=== PATIENT | female | born 1930 | race Caucasian/White ===

== ENCOUNTER 2016-11-25 13:16 | Emergency (ER) | payer OTHER ==
[~2016-11-25] VITALS: Ht 152.4 cm; Wt 58.0 kg
[~2016-11-25 13:16] MED LIST: ACET-1138 PO; AMIO200T4 PO; CITA10TA4 PO; CLOB-77 TOP; CRS/10 PO; IMD/2 PO; LACT12LO28 TOP; LEVO-14 PO; LEVO50TA PO; MECL1TAB40 PO; METO50TA17 PO; METR0.754 TOP; NTRGSL/4 UT; ONDA8TAB6 PO; ROPI0.5T15 PO; ROPI1TAB PO; RXC5 PO; SNK PO; TRAM-10 PO; WARF3TAB PO
[2016-11-25 13:24] VITALS: TEMP 36.8; Ht 152.4 cm; Wt 58.0 kg
[2016-11-25] MEDS ORDERED: DXY50 PO (14:12)
[2016-11-25] MEDS ORDERED: WARF4TAB44 PO (14:12)
[2016-11-25] MEDS ORDERED: WARF1TAB6 PO (14:12)
[2016-11-25] MEDS ORDERED: ANT25 PO (14:12)
[2016-11-25] MEDS ORDERED: ONDA-63 PO (14:13)
[2016-11-25] MEDS ORDERED: METO50TA16 PO (14:13)
--- NOTE | 2016-11-25 14:53 | DIAGNOSTIC IMAGING REPORT ---
HEAD WITHOUT CONTRAST (CT) CLINICAL HISTORY: 86 years-old Female with eval for trauma. Acute head injury. Initial exam. TECHNIQUE: Multiple axial CT images of the head were obtained without contrast. A dose lowering technique was utilized adhering to the principles of ALARA. CT DOSE: 776.86 mGycm COMPARISON: CT head 05/29/2013. FINDINGS: No acute intracranial hemorrhage, midline shift, mass, large territorial ischemia or abnormal extra-axial collection. Moderate atrophy with ex vacuo ventriculomegaly. Confluent areas of low-attenuation are seen within the periventricular, subcortical and deep white matter of the cerebral hemispheres bilaterally compatible with chronic microvascular ischemic changes. Findings appear similar to slightly progressed from prior study. The calvarium is intact. The paranasal sinuses, mastoid air cells, and middle ear cavities are clear. IMPRESSION: 1. No acute intracranial abnormality. 2. Atrophy with chronic microvascular ischemic changes. The above report was generated using voice recognition software. It may contain grammatical, syntax or spelling errors. Electronically signed by: Rodger Duke M.D. 11/25/2016 2:51 PM Dictated Date/Time: 11/25/2016 2:47 PM
[2016-11-25 17:05] VITALS: BP 113/60; PULSE 69; O2SAT 96
--- NOTE | 2016-11-25 17:47 | EMERGENCY ROOM VISIT NOTE ---
History Report prepared by Dean: Amarilis Thomas Under the Supervision of: Dr. John Don M.D. First contact with patient: 14:07 Chief Complaint: SYNCOPE Stated Complaint: SYNCOPE Nursing Triage Summary: pt to the ED via EMS from clinic in [place] after having blood drawn she had 2 syncopal episodes. pt stated one time she fell out of the chair and thinks she hit her head she has passed out during blood draws several times and she stated that they were having a hard time getting blood and were digging around. pt has c/o LUDWIG pt takes coumadin History of Present Illness The patient is a 86 year old female who presents to the Emergency Room with complaints of multiple episodes of syncope occurring [employer]. The patient went in for blood work today. She states that she always passes out when she has blood work drawn. Today they had a difficult time drawing blood. After they were finished, the patient laid down for a while to make sure she was OK. She got up and took a few steps with her cane and passed out. Her daughter caught her and sat her down in a chair. The patient then passed out in the chair and hit the back of her head on the wall behind the chair. She was transferred to a wheelchair where she passed out again. She was feeling fine before she went to her appointment this morning and ate breakfast normally. The patient was brought to the ED by ambulance and states that she was hypertensive en route which typically happens to her when she passes out. She is on Coumadin. 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 A total of 10 systems reviewed and were otherwise negative. Past Medical & Surgical Medical Problems: (1) CKD (chronic kidney disease), stage III (2) Dyslipidemia (3) HTN (hypertension) (4) Pacemaker (5) RLS (restless legs syndrome) (6) Rosacea (7) SVT (supraventricular tachycardia) (8) Tachy-enid syndrome Surgical Problems: (1) History of carpal tunnel surgery (2) History of cataract surgery (3) History of hysterectomy (4) Post-operative state Old medical records were reviewed. Nurse's notes were reviewed and I agree with. Family History Diabetes mellitus Heart disease Hypertension Social History Smoking Status: Never Smoker Alcohol Use: none Housing Status: lives with family Occupation Status: retired Current/Historical Medications Scheduled Citalopram Hydrobromide (Citalopram Hydrobromide), 1 TAB PO HS Doxycycline Hyclate (Doxycycline Hyclate), 50 MG PO DAILY Levothyroxine Sodium (Synthroid), 1 TAB PO DAILY Meclizine HCl (Meclizine HCl), 12.5 MG PO DIRECTED Metoprolol Tartrate (Lopressor) (Lopressor), 25 MG PO BID Nitroglycerin (Nitrostat), 0.4 MG UT PRN Ropinirole (Requip), 0.5 MG PO QAM Ropinirole (Requip), 1 MG PO BID Rosuvastatin Calcium (Crestor), 1 TAB PO DAILY Warfarin Sod (Jantoven), 1 MG PO 4XWK Warfarin Sodium (Warfarin Sodium), 2 MG PO 3XWK Scheduled PRN Clobetasol Propionate (Temovate), 1 APPLN TOP BID PRN for PRN Lactic Acid (Ammonium Lactate) (Ammonium Lactate), 1 APPLN TOP PRN PRN for PRN Levocetirizine Dihydrochloride (Levocetirizine Dihydrochl), 1 TAB PO DAILY PRN for ALLERGIES Loperamide Hcl (Imodium), 2 MG PO UD PRN for PRN Metronidazole (Topical) (Metrocream), 1 APPLN TOP DAILY PRN for PRN Ondansetron (Ondansetron HCl), 8 MG PO Q8H PRN for Nausea Allergies Coded Allergies: Adhesives (Verified Allergy, Unknown, ADHESIVE TAPE, 12/31/15) Conjugated Estrogens (Verified Allergy, Unknown, SEVERE RASH, PAINFUL FROM VAGINAL CREAM, 12/31/15) Sulfa Antibiotics (Verified Allergy, Unknown, HIVES, RASH, 12/31/15) Tetanus Toxoid (Verified Allergy, Unknown, UNKNOWN, 12/31/15) Physical Exam Vital Signs Date Time Temp Pulse Resp B/P (MAP) Pulse Ox O2 Delivery O2 Flow Rate FiO2 11/25/16 17:05 69 18 113/60 96 11/25/16 15:13 63 18 130/73 97 Room Air 11/25/16 13:35 67 11/25/16 13:35 66 160/110 11/25/16 13:24 36.8 75 20 197/124 99 Room Air Physical Exam General: Well developed well nourished non ill appearing older female in no acute distress, breathing comfortably on room air. Normal speech HEENT: Normal cephalic, minimally tender posterior scalp, no external signs of trauma. Pupils are equal round and reactive to light. Extraocular movements are intact. Oropharynx is pink with moist mucous membranes. No swelling of the mouth lips or tongue. Neck: Supple with a midline trachea. No meningeal signs or stiffness, no JVD or bruits. No Stridor. Chest: Clear to auscultation bilaterally. No wheezes or rhonchi. No increased work of breathing. Heart: regular rate and rhythm. Abdomen: Soft nontender, nondistended without rebound guarding or rigidity. Extremities: No cyanosis clubbing or edema. No calf tenderness or assymetry Spine/Back. Non tender to palpation. No CVA tenderness Skin: Good turgor without rashes. Neurologic exam: Cranial nerves two through 12 are intact. Motor and sensation are intact and symmetrical throughout. Medical Decision & Procedures ER Provider Diagnostic Interpretation: Radiology results as stated below per my review and radiologist interpretation: HEAD WITHOUT CONTRAST (CT) CLINICAL HISTORY: 86 years-old Female with eval for trauma. Acute head injury. Initial exam. TECHNIQUE: Multiple axial CT images of the head were obtained without contrast. A dose lowering technique was utilized adhering to the principles of ALARA. CT DOSE: 776.86 mGycm COMPARISON: CT head 05/29/2013. FINDINGS: No acute intracranial hemorrhage, midline shift, mass, large territorial ischemia or abnormal extra-axial collection. Moderate atrophy with ex vacuo ventriculomegaly. Confluent areas of low-attenuation are seen within the periventricular, subcortical and deep white matter of the cerebral hemispheres bilaterally compatible with chronic microvascular ischemic changes. Findings appear similar to slightly progressed from prior study. The calvarium is intact. The paranasal sinuses, mastoid air cells, and middle ear cavities are clear. IMPRESSION: 1. No acute intracranial abnormality. 2. Atrophy with chronic microvascular ischemic changes. The above report was generated using voice recognition software. It may contain grammatical, syntax or spelling errors. Electronically signed by: Rodger Duke M.D. 11/25/2016 2:51 PM Dictated Date/Time: 11/25/2016 2:47 PM ECG Indication: syncope Rate (beats per minute): 62 Rhythm: other (atrial paced) Findings: no acute ischemic change, no ectopy, other (LVH) Comparison ECG Date: 01/10/16 Change: no significant change ED Course 1407: Past medical records reviewed. The patient was evaluated in room A9B, and a complete history and physical examination were performed. 1654: I reassessed the patient at this time. She is feeling better and resting comfortably. I discussed the results and treatment plan with the patient and her daughter. I answered all pertaining questions that they had. They expressed understanding and verbalized agreement. The patient will be discharged home. Medical Decision Differential diagnoses includes vasovagal syncope, arrhythmia, anemia, intracranial hemorrhage, skull fracture. She comes in as described above she had syncopal episodes after getting her blood work drawn. She has a long-standing history of this. She passed out fine felt better when they actually laid her down on the ground. She may have hit her head briefly. She has minimal headache. She is on Coumadin. I did do a CAT scan of her head was unremarkable. EKG shows a normal paced rhythm without ischemic changes we did attempt to interrogate her pacer here but were unable to get the information. The patient has no symptoms that should to suggest this to pacemaker malfunction or significant arrhythmia. Her blood pressure initially was hypertensive and prior to discharge her was normotensive at 130/73. Given her severe needle phobia and the fact that she passes out with blood work. I do not feel the need to repeat this. I attempted to get the blood work from [facility] (now [facility]) however it's not back today. the patient remained stable and feels fine. She able ambulate without any difficulties. I think this was a vasovagal episode. I will have her follow-up with her doctor tomorrow and get her blood work results as well. She return ER if : worseningof symptoms, fever or chills, chest pain, shortness of breath, any new problems or concerns. She is happy with plan discharged to home. Medication Reconcilliation Current Medication List: was personally reviewed by me Blood Pressure Screening Patient's blood pressure: Normal blood pressure Impression Primary Impression: Vasovagal syncope Additional Impression: Closed head injury Scribe Attestation The scribe's documentation has been prepared under my direction and personally reviewed by me in its entirety. I confirm that the note above accurately reflects all work, treatment, procedures, and medical decision making performed by me. Departure Information Dispostion Home / Self-Care Referrals Roly Vogel M.D. (PCP) Forms HOME CARE DOCUMENTATION FORM, IMPORTANT VISIT INFORMATION Patient Instructions My [facility] Additional Instructions Rest Drink plenty of fluids Return if: worsening of symptoms, fever, chest pain, any new problems or concerns Follow-up with your doctor tommorrow for recheck and lab results Problem Qualifiers Additional Impression: Closed head injury Encounter type: initial encounter Qualified Codes: S09.90XA - Unspecified injury of head, initial encounter
== END 2016-11-25 17:07 | disposition home or self-care (01) ==
LOC: EDBD 13:16 → C.EDA 13:17
DX: R55 Syncope and collapse (principal); S09.90XA Unspecified injury of head, initial encounter; W07.XXXA Fall from chair, initial encounter; Y92.89 Other specified places as the place of occurrence of the external cause; N18.3 Chronic kidney disease, stage 3 (moderate); E78.5 Hyperlipidemia, unspecified; I12.9 Hypertensive chronic kidney disease with stage 1 through stage 4 chronic kidney disease, or unspecified chronic kidney disease; Z95.0 Presence of cardiac pacemaker; I47.1 Supraventricular tachycardia; I49.5 Sick sinus syndrome; Z83.3 Family history of diabetes mellitus; Z82.49 Family history of ischemic heart disease and other diseases of the circulatory system; Z79.01 Long term (current) use of anticoagulants; Z79.899 Other long term (current) drug therapy

== ENCOUNTER 2017-03-27 18:46 | Inpatient (IN) | payer OTHER ==
[~2017-03-27] VITALS: Ht 142.2 cm; Wt 56.0 kg
[~2017-03-27 18:46] MED LIST changes: -ACET-1138 PO; -AMIO200T4 PO; +ANT25 PO; +DXY50 PO; -MECL1TAB40 PO; +METO50TA16 PO; -METO50TA17 PO; +ONDA-63 PO; -ONDA8TAB6 PO; -RXC5 PO; -SNK PO; -TRAM-10 PO; +WARF1TAB6 PO; -WARF3TAB PO; +WARF4TAB44 PO
[2017-03-27 19:28] LABS: BASO % 0.6 %; BASO ABS # 0.04 K/uL (0-0.2); EOS % 2.8 %; EOS ABS # 0.19 K/uL (0-0.5); HEMATOCRIT 36.5 % (37-47); HEMOGLOBIN 11.9 g/dL (12.0-16.0); IG# 0.02 K/uL (0.00-0.02); LYMPH ABS # 1.86 K/uL (1.2-3.4); MEAN CELL VOLUME 89.7 fL (80-100); MEAN CORPUSCULAR HEMOGLOBIN 29.2 pg (25-34); MEAN CORPUSCULAR HGB CONC 32.6 g/dl (32-36); MEAN PLATELET VOLUME 11.3 fL (7.4-10.4); MONO % 8.6 %; MONO ABS # 0.59 K/uL (0.11-0.59); NEUT % 60.7 %; NEUT ABS # 4.18 K/uL (1.4-6.5); PLATELET COUNT 219 K/uL (130-400); RED CELL DISTRIBUTION WIDTH CV 14.7 % (11.5-14.5); RED CELL DISTRIBUTION WIDTH SD 48.1 fL (36.4-46.3); WHITE BLOOD COUNT 6.88 K/uL (4.8-10.8)
[2017-03-27 19:37] LABS: INR 1.6 (0.9-1.1); PTT PATIENT 29.6 SECONDS (21.0-31.0)
--- NOTE | 2017-03-27 19:44 | DIAGNOSTIC IMAGING REPORT ---
CHEST ONE VIEW PORTABLE HISTORY: Syncope. Evaluate for pneumonia. COMPARISON: Chest 12/10/2015. FINDINGS: The cardiac silhouette is mildly enlarged. The lungs are clear. No pleural effusions. No pneumothorax. Left-sided dual-chamber pacemaker. IMPRESSION: Mild cardiomegaly. Electronically signed by: Benson Self M.D. 03/27/2017 7:42 PM Dictated Date/Time: 03/27/2017 7:41 PM
[2017-03-27 19:46] LABS: ALBUMIN 3.6 gm/dl (3.4-5.0); ALT/SGPT 27 U/L (12-78); AST/SGOT 28 U/L (15-37); BLOOD UREA NITROGEN 22 mg/dl (7-18); CALCIUM 8.7 mg/dl (8.5-10.1); CARBON DIOXIDE 24 mmol/L (21-32); CREATININE 1.27 mg/dl (0.60-1.20); GLUCOSE 133 mg/dl (70-99); POTASSIUM 3.9 mmol/L (3.5-5.1); SODIUM 136 mmol/L (136-145)
[2017-03-27 19:51] LABS: ALKALINE PHOSPHATASE 109 U/L (45-117); TOTAL PROTEIN 7.3 gm/dl (6.4-8.2)
[2017-03-27] MEDS ORDERED: AMMONIUM LACTATE 12% LOTION 225 GM BTL EXT PRN (20:45)
[2017-03-27] MEDS ORDERED: ONDANSETRON INJ 2 MG/ML 2 ML VIAL IV PRN (20:45)
[2017-03-27] MEDS ORDERED: NITROGLYCERIN 0.4 MG SL PER TAB CHARGE UT SCH (20:45)
[2017-03-27] MEDS ORDERED: MECLIZINE HCL 12.5 MG TAB PO PRN (20:45)
[2017-03-27] MEDS ORDERED: ROPINIROLE HCL 1 MG TAB PO SCH (21:00)
[2017-03-27] MEDS ORDERED: ACET-1693 PO (21:09)
[2017-03-27 21:33] VITALS: BP 165/84; PULSE 67; TEMP 37.3; O2SAT 98; Ht 142.2 cm; Wt 56.0 kg
--- NOTE | 2017-03-27 21:35 | DIAGNOSTIC IMAGING REPORT ---
HEAD CT NONCONTRAST CT DOSE: 655.73 mGy.cm HISTORY: Syncope. TECHNIQUE: Multiaxial CT images of the head were performed without the use of intravenous contrast. Automated exposure control was utilized for this study. A dose lowering technique was utilized adhering to the principles of ALARA. Comparison: Head CT 11/18/1716. Findings: The paranasal sinuses and mastoid air cells are clear. The calvarium and skull base are intact. There is no mass, hematoma, midline shift, acute infarct. White matter hypodensity is nonspecific but suggestive of microvascular ischemic change. The ventricles and sulci demonstrate mild age-related involutional changes. Impression: No significant change compared to the prior study. No acute intracranial abnormality. Electronically signed by: Benson Self M.D. 03/27/2017 9:34 PM Dictated Date/Time: 03/27/2017 9:32 PM
[2017-03-27] MEDS ORDERED: WARFARIN SOD 2.5 MG TAB PO STA (22:27)
[2017-03-27] MEDS ORDERED: NSS + 20MEQ KCL 1000ML 1,000 ML IV SCH (22:30)
[2017-03-27 22:45] LABS: INR 1.6 (0.9-1.1)
[2017-03-27] MEDS: CITALOPRAM 20 MG TAB PO SCH (22:48)
[2017-03-27] MEDS: METOPROLOL TARTRATE 25 MG TAB PO SCH (22:49)
--- NOTE | 2017-03-27 23:20 | EMERGENCY ROOM VISIT NOTE ---
History Report prepared by Dean: Mahogany Cheung Under the Supervision of: Dr. Toro Garza M.D. First contact with patient: 18:51 Stated Complaint: SYNCOPE History of Present Illness The patient is an 87 year old female who presents to the Emergency Room brought in by EMS with complaints of recurrent syncope 1.5 hours SEWER HAND. 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 She did eat and did not drink any alcohol tonight. She states that she sat down on the floor and denies any head injuries or LOC. She states that she felt semi-conscious throughout the episodes, though there were times that she could not remember what was going on. She states the syncope episodes did not last very long. She repetitively passed out as she was being assisted to stand up, though is unclear how many syncopal episodes she had. She states that she almost passed out while in the ambulance. She notes that her heart was pounding and racing. She states that she does not feel normal. She denies any alcohol consumption. She notes that she ate spaghetti for supper. She denies any back pain. She denies feeling weak over the past couple of days. She denies taking any Advil, Motrin, or Aspirin. She takes Tylenol daily. She has a [employer] pacemaker. She denies any other pain. She notes black stools for the past week. She is on Coumadin, though denies any iron supplements. She has a history of diverticulitis and atrial fibrillation. Source of History: patient Onset: 1.5 hours SEWER HAND Position: other (global ) Quality: other (syncope) Timing: other (persistent) Associated Symptoms: No LOC, No back pain, No weakness Note: She denies any head injuries. She notes feeling semi-conscious. She notes that her heart was pounding and racing. She notes black stools. Review of Systems See HPI for pertinent positives & negatives. A total of 10 systems reviewed and were otherwise negative. Past Medical & Surgical Medical Problems: (1) Atrial fibrillation (2) CKD (chronic kidney disease) (3) CKD (chronic kidney disease), stage III (4) Dyslipidemia (5) HTN (hypertension) (6) Pacemaker (7) RLS (restless legs syndrome) (8) Rosacea (9) SVT (supraventricular tachycardia) (10) Syncope and collapse (11) Tachy-enid syndrome Surgical Problems: (1) History of carpal tunnel surgery (2) History of cataract surgery (3) History of hysterectomy (4) Post-operative state Family History Diabetes mellitus Heart disease Hypertension Social History Smoking Status: Never Smoker Smokeless Tobacco Use: No Alcohol Use: none Drug Use: none Housing Status: lives with family Occupation Status: retired Current/Historical Medications Scheduled Citalopram Hydrobromide (Citalopram Hydrobromide), 10 MG PO DAILY Doxycycline Hyclate (Doxycycline Hyclate), 50 MG PO DAILY Levocetirizine Dihydrochloride (Levocetirizine Dihydrochl), 5 MG PO DAILY Levothyroxine Sodium (Synthroid), 50 MCG PO QAM Metoprolol Tartrate (Lopressor) (Lopressor), 25 MG PO BID Ropinirole (Requip), 0.5 MG PO QAM Ropinirole (Requip), 1 MG PO BID Rosuvastatin Calcium (Crestor), 10 MG PO DAILY Warfarin Sod (Jantoven), 1 MG PO 3XWK Warfarin Sodium (Warfarin Sodium), 2 MG PO 4XWK Scheduled PRN Acetaminophen Tab (Tylenol), 650 MG PO Q6H PRN for Pain Clobetasol Propionate (Temovate), 1 APPLN TOP BID PRN for Rash,Itching and Flares Lactic Acid (Ammonium Lactate) (Ammonium Lactate), 1 APPLN TOP BID PRN for Affected Area(s) Loperamide Hcl (Imodium), 2 MG PO UD PRN for Diarrhea Meclizine HCl (Meclizine HCl), 12.5 MG PO UD PRN for Dizziness or Vertigo Metronidazole (Topical) (Metrocream), 1 APPLN TOP DAILY PRN for UNDECIDED Nitroglycerin (Nitrostat), 0.4 MG UT UD PRN for Chest Pain Ondansetron (Ondansetron HCl), 8 MG PO Q8H PRN for Nausea Allergies Coded Allergies: Adhesives (Verified Allergy, Unknown, ADHESIVE TAPE, 12/31/15) Conjugated Estrogens (Verified Allergy, Unknown, SEVERE RASH, PAINFUL FROM VAGINAL CREAM, 12/31/15) Sulfa Antibiotics (Verified Allergy, Unknown, HIVES, RASH, 12/31/15) Tetanus Toxoid (Verified Allergy, Unknown, UNKNOWN, 12/31/15) Physical Exam Vital Signs Date Time Temp Pulse Resp B/P (MAP) Pulse Ox O2 Delivery O2 Flow Rate FiO2 03/27/17 20:01 68 22 149/91 95 Room Air 67 145/75 77 168/76 03/27/17 20:01 67 20 145/75 95 Room Air 03/27/17 19:33 63 03/27/17 18:58 98 Room Air 03/27/17 18:56 37.0 67 18 166/75 98 Room Air Physical Exam Constitutional: Vital signs reviewed. Eyes: Pupils are equal round reactive to light. Conjunctiva are noninjected. ENT: Pharynx is clear without erythema or exudate. Mucous membranes are moist. Neck supple without meningeal signs. No midline tenderness to cervical spine. Respiratory: Clear to auscultation bilaterally. Breath sounds are equal bilaterally. Cardiovascular: Regular rate and rhythm. No rubs or gallops. GI: Soft, nondistended and nontender. Bowel sounds are present. Rectal: Guaiac negative. Brown stool. Musculoskeletal: No peripheral edema. No lower extremity tenderness. No hip tenderness. Integumentary: No cyanosis. Neurological: The patient is awake and alert. Cranial nerves II-XII are intact. Motor is 5 out of 5 all extremities. Sensation is intact to light touch all extremities. Normal speech. No pronator drift. Psychiatric: Normal affect. Medical Decision & Procedures ER Provider Diagnostic Interpretation: Radiology results as stated below per my review and the radiologist's interpretation: CHEST ONE VIEW PORTABLE HISTORY: Syncope. Evaluate for pneumonia. COMPARISON: Chest 12/10/2015. FINDINGS: The cardiac silhouette is mildly enlarged. The lungs are clear. No pleural effusions. No pneumothorax. Left-sided dual-chamber pacemaker. IMPRESSION: Mild cardiomegaly. Electronically signed by: Benson Self M.D. 03/27/2017 7:42 PM Dictated Date/Time: 03/27/2017 7:41 PM Laboratory Results 03/27/17 19:16 Red Blood Count 4.07, Mean Corpuscular Volume 89.7, Mean Corpuscular Hemoglobin 29.2, Mean Corpuscular Hemoglobin Concent 32.6, Mean Platelet Volume 11.3, Neutrophils (%) (Auto) 60.7, Lymphocytes (%) (Auto) 27.0, Monocytes (%) (Auto) 8.6, Eosinophils (%) (Auto) 2.8, Basophils (%) (Auto) 0.6, Neutrophils # (Auto) 4.18, Lymphocytes # (Auto) 1.86, Monocytes # (Auto) 0.59, Eosinophils # (Auto) 0.19, Basophils # (Auto) 0.04 03/27/17 19:16 Test 03/27/17 19:16 White Blood Count 6.88 K/uL (4.8-10.8) Red Blood Count 4.07 M/uL (4.2-5.4) Hemoglobin 11.9 g/dL (12.0-16.0) Hematocrit 36.5 % (37-47) Mean Corpuscular Volume 89.7 fL (80-100) Mean Corpuscular Hemoglobin 29.2 pg (25-34) Mean Corpuscular Hemoglobin Concent 32.6 g/dl (32-36) Platelet Count 219 K/uL (130-400) Mean Platelet Volume 11.3 fL (7.4-10.4) Neutrophils (%) (Auto) 60.7 % Lymphocytes (%) (Auto) 27.0 % Monocytes (%) (Auto) 8.6 % Eosinophils (%) (Auto) 2.8 % Basophils (%) (Auto) 0.6 % Neutrophils # (Auto) 4.18 K/uL (1.4-6.5) Lymphocytes # (Auto) 1.86 K/uL (1.2-3.4) Monocytes # (Auto) 0.59 K/uL (0.11-0.59) Eosinophils # (Auto) 0.19 K/uL (0-0.5) Basophils # (Auto) 0.04 K/uL (0-0.2) RDW Standard Deviation 48.1 fL (36.4-46.3) RDW Coefficient of Variation 14.7 % (11.5-14.5) Immature Granulocyte % (Auto) 0.3 % Immature Granulocyte # (Auto) 0.02 K/uL (0.00-0.02) Activated Partial Thromboplast Time 29.6 SECONDS (21.0-31.0) Partial Thromboplastin Ratio 1.1 Anion Gap 7.0 mmol/L (3-11) Est Creatinine Clear Calc Drug Dose 25.6 ml/min Estimated GFR () 44.3 Estimated GFR (Non- 38.2 BUN/Creatinine Ratio 17.0 (10-20) Calcium Level 8.7 mg/dl (8.5-10.1) Magnesium Level 2.4 mg/dl (1.8-2.4) Total Bilirubin 0.6 mg/dl (0.2-1) Direct Bilirubin 0.1 mg/dl (0-0.2) Aspartate Amino Transf (AST/SGOT) 28 U/L (15-37) Alanine Aminotransferase (ALT/SGPT) 27 U/L (12-78) Alkaline Phosphatase 109 U/L (45-117) Total Protein 7.3 gm/dl (6.4-8.2) Albumin 3.6 gm/dl (3.4-5.0) Laboratory results as reviewed by me. ECG Indication: syncope Rate (beats per minute): 66 Rhythm: normal sinus Findings: no acute ischemic change, no ectopy Change: Patient's electrocardiogram per my interpretation. ED Course 1853: The patient was evaluated in room A12B. A complete history and physical exam was performed. 2003: I reassessed the patient at this time. I discussed the results. The pacemaker is currently being interrogated. 2005: I spoke with Dr. Hernandez, [facility] hospitalist. We discussed the patients case. The patient will be evaluated by the [facility] for further management. 2014: I spoke with Saji, [employer] histologic technician. He states there are no signs of arrhythmia other than atrial fibrillation, which did not occur today. Medical Decision This is an 87-year-old female who presents with multiple syncopal episodes. Differential diagnosis includes dysrhythmia, ventricular tachycardia, orthostatic hypotension, dehydration, metabolic derangement, carotid stenosis. I did perform a limited focused review of portions of the patient's old chart on the electronic medical record. The patient was seen October 2016 for syncopal episodes while having her blood drawn. She had a carotid US in 2013. Findings showed: bilateral plaque buildup and 50-70% stenosis of left ICA. I did evaluate the patient as noted above. The patient had several syncopal episodes today. It started when she got up from dinner. She did feel lightheaded before she passed out. She denies hitting her head and stated that she was semiconscious when she sat on the ground. She states that there were 2 men beside her kept her from falling. She also states that she has had melanotic stools since last week. She is on Coumadin for history of paroxysmal A. fib. I did perform a rectal examination which showed guaiac negative light brown stool. IV access was established. 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 I did order and personally review the patient's 12- lead EKG and chest x-ray as described above. I did order and review the patient 's blood work as noted in the electronic medical record. She has mild anemia. Her INR is subtherapeutic. I did order an interrogation of her pacemaker. This did not show any dysrhythmia today that can account for her syncope. I did discuss the test results with her. I did recommend she be hospitalized for further evaluation of her symptoms. I did discuss the case with the hospitalist and case management assistant. Medication Reconcilliation Current Medication List: was personally reviewed by me Blood Pressure Screening Blood pressure disposition: Referred to PCP Consults Time Called: 2000 Consulting Physician: Dr. Hernandez [facility] Returned Call: [address] Hernandez, [facility]. We discussed the patients case. The patient will be evaluated by the [facility] for further management. Impression Primary Impression: Syncope Additional Impressions: Subtherapeutic international normalized ratio (INR) Anemia Scribe Attestation The scribe's documentation has been prepared under my direct and personally reviewed by me in its entirety. I confirm that the note above accurately reflects all work, treatment, procedures, and medical decision making performed by me. Departure Information Dispostion Being Evaluated By Hospitalist Referrals Roly Vogel M.D. (PCP) Problem Qualifiers Primary Impression: Syncope Syncope type: unspecified Qualified Codes: R55 - Syncope and collapse Additional Impressions: Anemia Anemia type: unspecified type Qualified Codes: D64.9 - Anemia, unspecified
[2017-03-27 23:32] VITALS: BP 149/63; PULSE 65; TEMP 37; O2SAT 96
--- NOTE | 2017-03-28 03:02 | HISTORY & PHYSICAL EXAMINATION ---
DATE OF ADMISSION: 03/27/2017 PRIMARY CARE PHYSICIAN: Dr. Vogel. CHIEF COMPLAINT: Episodes of syncope since this evening. HISTORY OF PRESENT COMPLAINT: She is an 87 years old female with significant past medical history including tachy-enid syndrome status post cardiac pacemaker, atrial fibrillation on Coumadin, chronic kidney disease stage III, hypertension, generalized anxiety disorder, restless leg syndrome, hyperlipidemia and also hypothyroidism. Apparently, she was in Spaghetti Dinner , following the dinner she was sitting on a chair for about 10-15 minutes. When she stood up and wanted to go with her family members, she just dropped on the floor. She did not hit herself, but she lost consciousness according to the family members, do not know how long but she looked pale. She was not feeling any significant symptoms but told me that she was not being herself. This seemed to happen quite a few times following that whenever she wanted to move around. Even the syncope happened to be while here she was in the ambulance, she only complained to have palpitation but specifically she did not have any chest pain, any nausea, vomiting, any abdominal pain, any headaches, any numbness or tingling in the extremities, any problem with speech and/or any weakness involving any side of the body. When asking questions, she mentions to have some shortness of breath but no sweating associated with it. In the Emergency Room, she was hemodynamically stable and her blood counts came out to be unremarkable except acute on chronic kidney impairment and her pacemaker interrogation came out to be negative, but given the history of recurrent syncope even at rest and on lying down with palpitations, she was admitted to medical floor for continuation of care. PAST MEDICAL HISTORY: Significant for chronic kidney disease, stage III; tachy-enid syndrome, status post cardiac pacemaker; atrial fibrillation with paroxysm of AF; hypertension; hyperlipidemia; restless leg syndrome; hypothyroidism; anxiety and atopic dermatitis. PAST SURGICAL HISTORY: Significant for carpal tunnel surgery, both sides; pacemaker insertion, 2013; cataract surgery; total hysterectomy and removal of tubes. FAMILY HISTORY: Nothing significant to specify. No diabetes, no hypertension. SOCIAL HISTORY: She is a . She has 3 children. She does not smoke, does not drink and she has been reasonably ambulant. REVIEW OF SYSTEMS: All other system reviewed and unremarkable except those mentioned in history of present complaint. ALLERGIES: SHE IS ALLERGIC TO ADHESIVES, CONJUGATED ESTROGEN, SULFA AND TETANUS TOXOID. MEDICATIONS: As an outpatient, she has been on doxycycline 50 mg as directed; loperamide 2 mg as directed; Zofran 8 mg q. 8 hourly p.r.n. for nausea; topical metronidazole for atopic dermatitis; Celexa 10 mg daily; Dermovate 0.05% one application b.i.d. p.r.n.; lactic acid that is ammonium lactate 12% applied externally as directed; levocetirizine hydrochloride 5 mg tablet p.o. daily as needed; Synthroid 50 mcg daily; meclizine 12.5 mg p.o. q. 6 hourly p.r.n.; Lopressor 25 mg tablet b.i.d.; nitroglycerin 0.4 mg as directed; Requip 0.5 mg in the morning, 1 mg twice daily; Crestor 10 mg daily and warfarin 1and 2 mg as directed. PHYSICAL EXAMINATION: GENERAL: On examination in the Emergency Room, she was not having any acute distress, but she was not feeling in herself. VITAL SIGNS: Temperature 37.0, pulse was 68 and there is no significant postural change, blood pressure 149/91 and there is no significant postural change, saturation 95% on room air. Her blood pressure noted to be very high in the ambulance, but do not know the number exactly. HEENT: Unremarkable. NECK: Supple. No JVD, no bruit. CHEST: Clear to auscultation bilaterally. HEART: S1, S2 regular with a 2/6 systolic murmur. ABDOMEN: Soft, benign, nontender, no organomegaly. Bowel sounds present. EXTREMITIES: Negative for any edema. MUSCULOSKELETAL: Did not show any acute arthritis involving any joint. CENTRAL NERVOUS SYSTEM: She was alert, awake, oriented x3. No focal sensory and/or motor deficit appreciated. LABORATORY DATA: Noted today white count was 6.88, H&H is 11.9/36.5, and platelet was 219. Sodium 135, potassium 3.9, chloride 105, carbon dioxide 24, BUN 22, creatinine 1.27 and random glucose 133. LFTs normal. Troponin less than 0.015. INR was 1.6, PT ratio 1.1. Her creatinine was normal in December of 2015. Chest x-ray mild cardiomegaly but no CHF. EKG was in sinus rhythm, rate of 66 per minute, normal axis and no significant ST-T wave changes. Pacemaker interrogation negative. Echo report noted from 2016, normal EF. IMPRESSION AND PLAN: 1. Episodes of syncope since this evening. No significant orthostasis noted. In the Emergency Room, pacemaker interrogation came out to be unremarkable. She will be admitted to telemetry unit. Serial cardiac enzymes to rule out any evidence of heart attack. We will get a CAT scan of the head to rule out any possibility of bleed, an echocardiogram and cardiology evaluation. We will check orthostatic blood pressure and pulse while in the hospital. We will give cautious amount of IV fluids for probable dehydration. 2. Tachy-enid syndrome status post cardiac pacemaker. Pacemaker interrogation has been negative. 3. Paroxysmal atrial fibrillation. The patient is in sinus rhythm right now with negative troponin, we will get serial cardiac enzymes and echocardiogram as mentioned earlier. 4. Acute kidney injury with chronic kidney disease. She will be given cautious amount of IV fluids and monitor kidney function while in the hospital. 5. Hypertension. Blood pressure seems to be stable at this time. Continue with metoprolol. 6. Hypothyroidism. Continue with replacement. 7. Deep venous thrombosis prophylaxis. INR is 1.6. We will give an increased dose of Coumadin tonight and monitor INR while in the hospital. 8. Code status. She will be a full code. In my clinical judgment, the beneficiary meets criteria as per CMS for 2 midnight stay in the hospital. MELISA
[2017-03-28 03:17] VITALS: BP 133/70; PULSE 60; TEMP 36.3; O2SAT 97
[2017-03-28] MEDS: ACETAMINOPHEN 325 MG TAB PO PRN ×2 (05:11→21:47)
[2017-03-28] MEDS: LEVOTHYROXINE 50 MCG TAB PO SCH (05:12)
[2017-03-28 06:55] LABS: HEMATOCRIT 33.9 % (37-47); HEMOGLOBIN 10.8 g/dL (12.0-16.0); MEAN CELL VOLUME 90.2 fL (80-100); MEAN CORPUSCULAR HEMOGLOBIN 28.7 pg (25-34); MEAN CORPUSCULAR HGB CONC 31.9 g/dl (32-36); MEAN PLATELET VOLUME 10.8 fL (7.4-10.4); PLATELET COUNT 187 K/uL (130-400); RED CELL DISTRIBUTION WIDTH CV 14.8 % (11.5-14.5); RED CELL DISTRIBUTION WIDTH SD 48.4 fL (36.4-46.3); WHITE BLOOD COUNT 5.82 K/uL (4.8-10.8)
[2017-03-28 07:39] LABS: CALCIUM 8.3 mg/dl (8.5-10.1); CREATININE 0.99 mg/dl (0.60-1.20); PHOSPHORUS 3.4 mg/dl (2.5-4.9); POTASSIUM 4.6 mmol/L (3.5-5.1)
[2017-03-28] MEDS: METOPROLOL TARTRATE 25 MG TAB PO SCH ×2 (07:50→20:43)
[2017-03-28] MEDS: ROSUVASTATIN CALCIUM 10 MG TAB PO SCH (07:50)
[2017-03-28] MEDS: ROPINIROLE HCL 1 MG TAB PO SCH ×3 (07:50→20:43)
[2017-03-28] MEDS ORDERED: ROPINIROLE HCL 1 MG TAB PO PRN (08:15)
--- NOTE | 2017-03-28 08:19 | DIAGNOSTIC IMAGING REPORT ---
CAROTID ARTERY ULTRASOUND CLINICAL HISTORY: Syncope. Evaluate for stenosis. COMPARISON STUDY: Carotid ultrasound May 30, 2013. TECHNIQUE: Real-time, grayscale, and color Doppler sonography of the carotid and vertebral arteries was performed. Images were viewed in the transverse and longitudinal planes. FINDINGS: There is mild to moderate atherosclerotic plaque. Velocity measurements are listed below. COMMON CAROTID PEAK SYSTOLIC VELOCITY (CM/S): RIGHT 96 LEFT 88 ICA PEAK SYSTOLIC VELOCITY (CM/S): RIGHT 82 LEFT 82 The systolic ratios between the internal to common carotid arteries were normal. Antegrade flow is seen in the vertebral arteries. The external carotid arteries are patent. Blood pressure in the right arm measured 126/68. Blood pressure in the left arm measured 122/66. IMPRESSION: Technically difficult study given high bifurcations but no convincing evidence for a hemodynamically significant stenosis. Electronically signed by: Erick Singh M.D. 03/28/2017 8:18 AM Dictated Date/Time: 03/28/2017 8:15 AM
[2017-03-28 08:20] VITALS: BP 165/73; PULSE 64; TEMP 36.4; O2SAT 98
[2017-03-28] MEDS ORDERED: SODIUM CHLORIDE 0.9% 1000ML 1,000 ML IV SCH (08:30)
[2017-03-28 08:46] LABS: INR 1.5 (0.9-1.1)
--- NOTE | 2017-03-28 08:55 | ECHOCARDIOGRAM REPORT ---
*NOTICE TO RECEIVING REPUBLICAN AGENCY This information is strictly Confidential and protected under [place] law. [place] law prohibits you from making any further disclosure of this information unless further disclosure is expressly permitted by the written consent of the person to whom it pertains or is authorized by law. A general authorization for the release of medical or other information is not sufficient for this purpose. Hospital accepts no responsibility if the information is made available to any other person, INCLUDING THE PATIENT. Interpretation Summary * Name: MARY WINKLER Study Date: 03/28/2017 06:46 AM BP: 133/70 mmHg * Patient Location: 221 HR: 60 * : 1930 (M/d/yyyy) Gender: Female Height: 59 in * Age: 87 yrs Ethnicity: CA Weight: 138 lb * Ordering Physician: Kevon Hernandez * Referring Physician: Self, Referred * Performed By: Aron Reynoso RDCS * * Reason For Study: Syncope and collapse * BSA: 1.6 m2 * -- Conclusions -- * The left ventricle is normal in size. * Left ventricular systolic function is normal. * Ejection Fraction = 55-60%. * The right ventricular systolic function is normal. * Grade I diastolic dysfunction, (abnormal relaxation pattern). * The left atrium is moderately dilated. * The right atrium is moderately dilated. * There is mild mitral regurgitation. * There is moderate tricuspid regurgitation. Procedure Details * A complete two-dimensional transthoracic echocardiogram was performed (2D, M-mode, Doppler and color flow Doppler). * The study was technically adequate. Left Ventricle * The left ventricle is normal in size. * There is normal left ventricular wall thickness. * Ejection Fraction = 55-60%. * Left ventricular systolic function is normal. Right Ventricle * The right ventricle is normal size. * There is a pacemaker lead in the right ventricle. * The right ventricular systolic function is normal. Atria * The left atrium is moderately dilated. * The right atrium is moderately dilated. * The interatrial septum is intact with no evidence for an atrial septal defect. Mitral Valve * The mitral valve leaflets appear thickened, but open well. * There is mild mitral regurgitation. Tricuspid Valve * The tricuspid valve is not well visualized, but is grossly normal. * There is moderate tricuspid regurgitation. Aortic Valve * The aortic valve is tricuspid. The leaflet thickness if normal. There is no aortic stenosis, and no significant insufficiency. * The aortic valve opens well. * There is no significant aortic regurgitation. Pulmonic Valve * The pulmonic valve is not well visualized. * There is no significant pulmonary regurgitation. Great Vessels * The aortic root and proximal ascending aorta are normal sized. Pericardium/Pleural * There is no pericardial effusion. Left Ventricular Diastolic Function * Grade I diastolic dysfunction, (abnormal relaxation pattern). MMode 2D Measurements and Calculations IVSd 0.99 cm IVSs 1.4 cm LVIDd 3.5 cm LVIDs 2.6 cm LVPWd 1.0 cm LVPWs 1.4 cm IVS/LVPW 0.95 FS 26.6 % EDV(Teich) 51.6 ml ESV(Teich) 24.3 ml EF(Teich) 53.0 % EDV(cubed) 43.7 ml ESV(cubed) 17.3 ml EF(cubed) 60.4 % % IVS thick 43.7 % % LVPW thick 35.1 % LV mass(C)d 107.6 grams LV mass(C)dI 68.3 grams/m\S\2 LV mass(C)s 119.5 grams LV mass(C)sI 75.9 grams/m\S\2 SV(Teich) 27.4 ml SI(Teich) 17.4 ml/m\S\2 SV(cubed) 26.4 ml SI(cubed) 16.8 ml/m\S\2 EPSS 0.72 cm Ao root diam 3.1 cm Ao root area 7.5 cm\S\2 ACS 1.7 cm LA dimension 4.4 cm asc Aorta Diam 3.3 cm LA/Ao 1.4 LVOT diam 1.9 cm LVOT area 2.9 cm\S\2 LVAd ap4 23.2 cm\S\2 LVLd ap4 7.2 cm EDV(MOD-sp4) 60.3 ml EDV(sp4-el) 63.2 ml LVAs ap4 13.5 cm\S\2 LVLs ap4 6.0 cm ESV(MOD-sp4) 24.8 ml ESV(sp4-el) 25.5 ml EF(MOD-sp4) 58.9 % EF(sp4-el) 59.7 % LVAd ap2 20.3 cm\S\2 LVLd ap2 7.1 cm EDV(MOD-sp2) 48.8 ml EDV(sp2-el) 49.3 ml LVAs ap2 12.1 cm\S\2 LVLs ap2 6.3 cm ESV(MOD-sp2) 20.6 ml ESV(sp2-el) 19.7 ml EF(MOD-sp2) 57.9 % EF(sp2-el) 60.1 % LVLd %diff -1.46 % EDV(MOD-bp) 54.6 ml LVLs %diff 4.3 % ESV(MOD-bp) 22.4 ml EF(MOD-bp) 59.0 % SV(MOD-sp4) 35.5 ml SI(MOD-sp4) 22.6 ml/m\S\2 SV(MOD-sp2) 28.3 ml SI(MOD-sp2) 17.9 ml/m\S\2 SV(MOD-bp) 32.2 ml SI(MOD-bp) 20.5 ml/m\S\2 SV(sp4-el) 37.8 ml SI(sp4-el) 24.0 ml/m\S\2 SV(sp2-el) 29.6 ml SI(sp2-el) 18.8 ml/m\S\2 Doppler Measurements and Calculations MV E max arik 77.6 cm/sec MV A max arik 97.1 cm/sec MV E/A 0.80 MV dec time 0.25 sec Ao V2 max 134.9 cm/sec Ao max PG 7.3 mmHg Ao max PG (full) 4.3 mmHg IDALIA(V,A) 1.8 cm\S\2 IDALIA(V,D) 1.8 cm\S\2 LV V1 max PG 3.0 mmHg LV V1 max 86.5 cm/sec PA V2 max 65.8 cm/sec PA max PG 1.7 mmHg PA acc slope 303.7 cm/sec\S\2 PA acc time 0.19 sec PA pr(Accel) -4.33 mmHg
[2017-03-28 12:02] VITALS: BP_SYST 147; BP_SYST 149; BP_SYST 172; BP_DIAS 71; BP_DIAS 73; BP_DIAS 76; PULSE 67; PULSE 72; TEMP 36.9; O2SAT 98
--- NOTE | 2017-03-28 13:38 | CARDIOLOGY CONSULTATION ---
DATE OF CONSULTATION: 03/28/2017 CONSULTATION FOR: [facility]. REASON FOR CONSULTATION: Syncope. HISTORY OF PRESENT ILLNESS: This patient is an 87-year-old female who is usually followed by Dr. Estevez through our clinic with a history of tachybrady syndrome with paroxysmal atrial fibrillation and status post dual-chamber pacemaker. The patient has a history of syncope that dates back many years. Typically, it sounds like vasovagal syncope. She states the last episode was when she went to get blood. Afterwards, she passed out. She states that every time she gets blood, this occurs. On the day of admission, she was at a [employer]amba[employer] violin [employer] dinner. After eating her spaghetti, she went to the auction/raffle. While there, she suddenly blacked out and found herself on the floor. She was helped back to the chair and this happened several more times and an ambulance was called and she was brought to the Emergency Department. In the Emergency Department, her pacemaker was evaluated and is functioning appropriately. She has had a CT of the brain, which showed no new or acute changes. She also had a carotid ultrasound, which was limited, but failed to show any significant stenosis. She has also had an echocardiogram that shows normal LV function and no significant valvular pathology that would explain her syncope. Her cardiac markers have been negative. Her EKG on admission shows a normal sinus rhythm. The patient has no complaints this morning. She sustained no trauma during her syncope. ALLERGIES: ADHESIVE TAPE AND PREMARIN. PAST MEDICAL HISTORY: As outlined above, the patient is status post dual-chamber pacemaker with a history of tachybrady syndrome and paroxysmal atrial fibrillation. 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 She had a cardiac catheterization at that time that showed no obstructive coronary artery disease. She does have a longstanding history of vasovagal syncope with blood draws and pain. She was hospitalized in July 2015 with acute diverticulitis. She is status post knee replacement in December 2016. SOCIAL HISTORY: She is a nonsmoker. FAMILY MEDICAL HISTORY: Noncontributory. REVIEW OF SYSTEMS: A 10-point review of systems is negative except for the history of chief complaint. PHYSICAL EXAMINATION: GENERAL: She is alert and oriented, no acute distress. VITAL SIGNS: Blood pressure is 140/70, pulse is regular at 64. She is afebrile. HEENT: She is normocephalic. Pupils are equal and reactive to light. Extraocular muscles are intact bilaterally. NECK: The neck veins are flat. Carotids have good upstrokes bilaterally without bruits. Thyroid is nonpalpable. RESPIRATORY: Breath sounds equal bilaterally and clear to auscultation. CARDIOVASCULAR: Heart has a regular rhythm. Normal S1, S2. No S3, S4. No cardiac rubs or murmurs. GASTROINTESTINAL: Abdomen is soft, nontender without organomegaly. EXTREMITIES: Free of edema, digit clubbing, or cyanosis. NEUROLOGIC: Grossly intact. SKIN: Warm to touch. LYMPH NODES: Negative to palpation. IMPRESSION: 1. Vasovagal syncope. 2. Appropriately functioning dual-chamber pacemaker. 3. Paroxysmal atrial fibrillation with tachybrady syndrome. RECOMMENDATIONS: This patient has a history of recurrent syncope. Her syncope usually occurs after blood draws or painful circumstances. Although she did not appear to have any such prodrome, it sounds as though she may have had a vasovagal event. Thus far, all our studies are negative. Her telemetry indicates that she is in a sinus rhythm and her pacemaker is functioning appropriately. I do not believe any additional cardiac workup is indicated. I would ambulate the patient today and if she feels well and has no additional arrhythmias, you could possibly discharge her home to outpatient followup.
[2017-03-28 15:16] VITALS: BP_SYST 142; BP_SYST 166; BP_DIAS 75; BP_DIAS 82; BP_DIAS 88; PULSE 67; PULSE 69; PULSE 82; TEMP 36.9; O2SAT 98
[2017-03-28] MEDS ORDERED: WARFARIN SOD 2 MG TAB PO SCH (16:00)
--- NOTE | 2017-03-28 17:03 | Progress Note ---
Medicine Progress Note Date & Time of Visit: Mar 28, 2017 at 16:53. Subjective seen resting in bed, comfortable states she feels somewhat improved compared to yesterday easily feels dizzy when getting up quickly no focal neuro deficits noted no other symptoms Objective Last 8 Hrs Date Time Temp Pulse Resp B/P (MAP) Pulse Ox O2 Delivery O2 Flow Rate FiO2 03/28/17 15:16 36.9 82 19 166/75 (105) 98 Room Air 67 166/88 (114) 69 142/82 (102) 03/28/17 12:02 36.9 67 18 149/73 (98) 98 Room Air 67 172/76 (108) 72 147/71 (96) 03/28/17 12:00 Room Air Physical Exam: General- oriented x 3, not in distress, speaks in sentences with no effort Head- atraumatic Eyes- PERRL, EOMI, anicteric ENT- oropharynx clear Neck- supple, no JVD, no adenopathy, no thyromegaly Lungs- clear breath sounds bilaterally, no rales/wheezes Heart- regular rhythm; no murmur, normal rate Abdomen- normal bowel sounds, soft, nontender, no masses Extremities- no pretibial edema, no calf tenderness; peripheral pulses intact Neuro- alert, oriented x 3; PERRL, EOMI; no facial palsy; no dysarthria; motor 5 /5 bilaterally; sensation 100% Skin- warm & dry Laboratory Results: Last 24 Hours Test 03/27/17 19:16 03/27/17 22:25 03/28/17 02:36 03/28/17 06:40 White Blood Count 6.88 K/uL 5.82 K/uL Red Blood Count 4.07 M/uL 3.76 M/uL Hemoglobin 11.9 g/dL 10.8 g/dL Hematocrit 36.5 % 33.9 % Mean Corpuscular Volume 89.7 fL 90.2 fL Mean Corpuscular Hemoglobin 29.2 pg 28.7 pg Mean Corpuscular Hemoglobin Concent 32.6 g/dl 31.9 g/dl Platelet Count 219 K/uL 187 K/uL Mean Platelet Volume 11.3 fL 10.8 fL Neutrophils (%) (Auto) 60.7 % Lymphocytes (%) (Auto) 27.0 % Monocytes (%) (Auto) 8.6 % Eosinophils (%) (Auto) 2.8 % Basophils (%) (Auto) 0.6 % Neutrophils # (Auto) 4.18 K/uL Lymphocytes # (Auto) 1.86 K/uL Monocytes # (Auto) 0.59 K/uL Eosinophils # (Auto) 0.19 K/uL Basophils # (Auto) 0.04 K/uL RDW Standard Deviation 48.1 fL 48.4 fL RDW Coefficient of Variation 14.7 % 14.8 % Immature Granulocyte % (Auto) 0.3 % Immature Granulocyte # (Auto) 0.02 K/uL Prothrombin Time 16.5 SECONDS 16.4 SECONDS Prothromb Time International Ratio 1.6 1.6 Activated Partial Thromboplast Time 29.6 SECONDS Partial Thromboplastin Ratio 1.1 Sodium Level 136 mmol/L 137 mmol/L Potassium Level 3.9 mmol/L 4.6 mmol/L Chloride Level 105 mmol/L 107 mmol/L Carbon Dioxide Level 24 mmol/L 27 mmol/L Anion Gap 7.0 mmol/L 3.0 mmol/L Blood Urea Nitrogen 22 mg/dl 17 mg/dl Creatinine 1.27 mg/dl 0.99 mg/dl Est Creatinine Clear Calc Drug Dose 25.6 ml/min 29.2 ml/min Estimated GFR () 44.3 59.8 Estimated GFR (Non- 38.2 51.6 BUN/Creatinine Ratio 17.0 16.9 Random Glucose 133 mg/dl 86 mg/dl Calcium Level 8.7 mg/dl 8.3 mg/dl Magnesium Level 2.4 mg/dl 2.3 mg/dl Total Bilirubin 0.6 mg/dl Direct Bilirubin 0.1 mg/dl Aspartate Amino Transf (AST/SGOT) 28 U/L Alanine Aminotransferase (ALT/SGPT) 27 U/L Alkaline Phosphatase 109 U/L Troponin I < 0.015 ng/ml < 0.015 ng/ml < 0.015 ng/ml < 0.015 ng/ml Total Protein 7.3 gm/dl Albumin 3.6 gm/dl Phosphorus Level 3.4 mg/dl Test 03/28/17 08:26 03/28/17 13:30 Prothrombin Time 16.1 SECONDS Prothromb Time International Ratio 1.5 Urine Color YELLOW Urine Appearance CLEAR Urine pH 7.0 Urine Specific [place] 1.010 Urine Protein NEG Urine Glucose (UA) NEG Urine Ketones NEG Urine Occult Blood NEG Urine Nitrite NEG Urine Bilirubin NEG Urine Urobilinogen NEG Urine Leukocyte Esterase NEG Assessment & Plan 87 year old female with history of TBS s/p Pacemaker, A fib on Coumadin, HTN, CKD 3, presenting with syncope. 1. Syncopal Episodes - r/o Arrhythmia Pacemaker interrogation unremarkable Troponin negative x 3 Cardiology consulted - r/o Orthostasis monitor Ortho VS on IV fluids - Neuro Etiology unlikely CT head no acute findings Carotid US: no significant stenosis 2. Tachy-enid syndrome status post cardiac pacemaker. Pacemaker interrogation has been negative. 3. Paroxysmal atrial fibrillation. - continue Metoprolol INR 1.5 continue coumadin 4. Acute kidney injury with chronic kidney disease. - resolved - gentle IV fluids 5. Hypertension. - Metoprolol 6. Hypothyroidism. Continue with replacement. 7. Deep venous thrombosis prophylaxis. - INR is 1.5 - on coumadin 8. Code status. She will be a full code. Dispo lives at home will order PT/OT Current Inpatient Medications: Current Inpatient Medications Medications (Trade) Dose Ordered Sig/Astrid Route Start Time Stop Time Status Last Admin Dose Admin Acetaminophen (Tylenol Tab) 650 mg Q4H PRN PO 03/27/17 20:45 04/26/17 20:44 03/28/17 05:11 650 MG Ondansetron HCl (Zofran Inj) 4 mg Q6H PRN IV 03/27/17 20:45 04/26/17 20:44 Ammonium Lactate (Lac-Hydrin) 1 appl PRN PRN EXT 03/27/17 20:45 04/26/17 20:44 Levothyroxine Sodium (Synthroid Tab) 50 mcg DAILYBB PO 03/28/17 06:00 04/27/17 05:59 03/28/17 05:12 50 MCG Meclizine HCl (Antivert Tab) 12.5 mg Q6H PRN PO 03/27/17 20:45 04/26/17 20:44 Metoprolol Tartrate (Lopressor Tab) 25 mg BID PO 03/27/17 21:00 04/26/17 20:59 03/28/17 07:50 25 MG Nitroglycerin (Nitrostat Tab) 0.4 mg PRN UT 03/27/17 20:45 04/26/17 20:44 Ropinirole HCl (Requip Tab) 0.5 mg QAM PO 03/28/17 09:00 04/27/17 08:59 03/28/17 07:50 0.5 MG Rosuvastatin Calcium (Crestor Tab) 10 mg DAILY PO 03/28/17 09:00 04/27/17 08:59 03/28/17 07:50 10 MG Warfarin Sodium (Coumadin Tab) 1 mg MoWeFrSa@1600 PO 03/29/17 16:00 04/28/17 15:59 Warfarin Sodium (Coumadin Tab) 2 mg SuTuTh@1600 PO 03/28/17 16:00 04/27/17 15:59 Citalopram Hydrobromide (celeXA TAB) 10 mg HS PO 03/27/17 22:30 04/26/17 22:29 03/27/17 22:48 10 MG Miscellaneous Information (Order Awaiting Action) 1 ea QS N/A 03/28/17 00:00 04/27/17 00:00 Miscellaneous Information (Order Awaiting Action) 1 ea QS N/A 03/28/17 00:00 04/27/17 00:00 Ropinirole HCl (Requip Tab) 1 mg BID@1645,2100 PO 03/28/17 16:45 04/27/17 16:44 03/28/17 14:50 1 MG Ropinirole HCl (Requip Tab) 0.5 mg DAILY PRN PO 03/28/17 08:15 04/27/17 08:14 Sodium Chloride 1,000 ml @ 60 mls/hr [id number] IV 03/28/17 08:30 03/29/17 01:09 03/28/17 08:53 60 MLS/HR
[2017-03-28] MEDS ORDERED: WARFARIN SOD 3 MG TAB PO ONE (17:30)
[2017-03-28 18:50] VITALS: BP 164/73; PULSE 67; TEMP 36.5; O2SAT 97
[2017-03-28] MEDS: CITALOPRAM 20 MG TAB PO SCH (20:43)
[2017-03-28 21:26] LABS: INR 1.7 (0.9-1.1)
[2017-03-29] VITALS (10 sets, daily range): BP systolic 93–168; BP diastolic 59–104; PULSE 61–86; TEMP 36.5–37; O2SAT 94–100
[2017-03-29] MEDS: LEVOTHYROXINE 50 MCG TAB PO SCH (05:53)
[2017-03-29 07:10] LABS: CREATININE 0.97 mg/dl (0.60-1.20); POTASSIUM 4.2 mmol/L (3.5-5.1)
[2017-03-29] MEDS: ROPINIROLE HCL 1 MG TAB PO SCH ×3 (08:11→20:51)
[2017-03-29] MEDS: ROSUVASTATIN CALCIUM 10 MG TAB PO SCH (08:12)
[2017-03-29] MEDS: METOPROLOL TARTRATE 25 MG TAB PO SCH ×2 (08:12→20:51)
--- NOTE | 2017-03-29 08:24 | Clinical Documentation Query ---
CLINICAL DOCUMENTATION QUERY In your clinical opinion is this patient being managed for: ( ) Syncope due to dehydration evidenced by elevated BUN and early CHASITY. ( ) Not Agree ( ) Other explanation of clinical findings (Please Explain) ( ) Unable to determine (Please Define) ( ) Need to Discuss The medical record reflects the following clinical findings, treatment, and risk factors. Clinical Indicators: BUN 22, Creatinine 1.27, GFR 38.2 Treatment: IVF's, Risk Factors: Age Please clarify and document your clinical opinion in the progress notes and discharge summary. Terms such as "probable", "suspected", "likely", "questionable", "possible", or "still to be ruled out" are acceptable. IF IN AGREEMENT, YOU MUST DOCUMENT ABOVE DIAGNOSTIC STATEMENT IN DAILY PROGRESS NOTES AND DISCHARGE SUMMARY. This document is not part of the patient's record. Thank You, Samuel Yin, RN [phone]
--- NOTE | 2017-03-29 09:45 | PROGRESS NOTE ---
DATE: 03/29/2017 FOLLOWUP VISIT SUBJECTIVE: This is an 87-year-old female with a history of tachybrady syndrome with paroxysmal atrial fibrillation status post dual-chamber pacemaker, which was interrogated after admission and is working appropriately. The patient has a long history of vasovagal syncopal events, especially after blood draws for lab work. She was admitted with syncope. The workup has been negative thus far. She has no complaints. I reviewed her telemetry for the past 24 hours and she has a paced rhythm. No other significant arrhythmias. OBJECTIVE: VITAL SIGNS: Blood pressure is 140/70. Pulse is regular at 60. She is afebrile. GENERAL: She is alert and oriented in no acute distress. HEENT: She is normocephalic. Pupils are equal and reactive to light. Extraocular muscles are intact bilaterally. NECK: The neck veins are flat. Carotids have good upstrokes bilaterally without bruits. Thyroid is nonpalpable. RESPIRATORY: Breath sounds equal bilaterally and clear to auscultation. CARDIOVASCULAR: Heart has a regular rhythm. Normal S1, S2. No S3, S4. No cardiac rubs or murmurs. GASTROINTESTINAL: Abdomen is soft, nontender without organomegaly. EXTREMITIES: Free of edema, digit clubbing, or cyanosis. NEUROLOGIC: Grossly intact. SKIN: Warm to touch. LYMPH NODES: Negative to palpation. LABORATORY DATA: Hemoglobin is 10.8. Sodium is 137, potassium is 4.2, BUN is 15, creatinine is 0.97. Troponins are negative. IMPRESSION: 1. Recurrent syncopal events, most likely vasovagal. 2. Appropriately functioning dual-chamber pacemaker. 3. History of tachybrady syndrome with paroxysmal atrial fibrillation. RECOMMENDATIONS: At this point, I do not believe any additional cardiac testing or workup is indicated for this patient. From a cardiac standpoint, she can be discharged to home with outpatient followup. I will arrange that followup.
--- NOTE | 2017-03-29 10:32 | Progress Note ---
Medicine Progress Note Date & Time of Visit: Mar 29, 2017 at 10:26. Subjective woke up feeling good was doing physical therapy and all of a sudden felt "dizzy", "the therapist looks like he was moving", stated she didn't feel good, was lowered and carried back to chair Blood Pressure 160s on exam, patient resting in bed, alert, oriented, not in distress denies active dizziness, chest pain, dyspnea, palpitations no other symptoms Objective Last 8 Hrs Date Time Temp Pulse Resp B/P (MAP) Pulse Ox O2 Delivery O2 Flow Rate FiO2 03/29/17 10:02 64 22 168/94 (118) 100 03/29/17 09:57 86 25 161/104 (123) 100 Room Air 03/29/17 08:00 Room Air 03/29/17 07:44 36.5 61 18 141/73 (95) 95 Room Air 03/29/17 04:00 Room Air 03/29/17 03:40 36.6 73 17 160/70 (100) 98 Room Air Physical Exam: General- oriented x 3, not in distress, speaks in sentences with no effort Eyes- EOMI, anicteric Neck- supple, no JVD Lungs- clear BS bilaterally, no rales/wheezes Heart- regular rhythm; no murmur, normal rate Abdomen- normal bowel sounds, soft, nontender Extremities- no pretibial edema, no calf tenderness Neuro- alert, oriented x 3; PERRL, EOMI; no facial palsy; no dysarthria; motor 5 /5 bilaterally; sensation 100% Skin- warm & dry Laboratory Results: Last 24 Hours Test 03/28/17 13:30 03/28/17 21:01 03/29/17 06:14 03/29/17 10:10 Urine Color YELLOW Urine Appearance CLEAR Urine pH 7.0 Urine Specific [place] 1.010 Urine Protein NEG Urine Glucose (UA) NEG Urine Ketones NEG Urine Occult Blood NEG Urine Nitrite NEG Urine Bilirubin NEG Urine Urobilinogen NEG Urine Leukocyte Esterase NEG Prothrombin Time 18.0 SECONDS Prothromb Time International Ratio 1.7 Sodium Level 137 mmol/L Potassium Level 4.2 mmol/L Chloride Level 104 mmol/L Carbon Dioxide Level 27 mmol/L Anion Gap 6.0 mmol/L Blood Urea Nitrogen 15 mg/dl Creatinine 0.97 mg/dl Est Creatinine Clear Calc Drug Dose 29.8 ml/min Estimated GFR () 61.3 Estimated GFR (Non- 52.9 BUN/Creatinine Ratio 15.5 Random Glucose 87 mg/dl Calcium Level 9.0 mg/dl Magnesium Level 2.3 mg/dl Assessment & Plan 87 year old female with history of TBS s/p Pacemaker, A fib on Coumadin, HTN, CKD 3, presenting with syncope. 1. Syncopal Episodes - possible Vertigo? CT head: no acute findings Carotid: no significant stenosis will order MRI Brain to r/o Cerebellar Stroke (verified with [employer]- Pacemaker is MRI compatible) will order Neurology consultation - Arrhythmia ruled out Pacemaker interrogation unremarkable Troponin negative x 3 Cardiology consulted - Orthostasis ruled out 2. Tachy-enid syndrome status post cardiac pacemaker. Pacemaker interrogation has been negative. 3. Paroxysmal atrial fibrillation. - continue Metoprolol INR pending continue coumadin 4. Acute kidney injury with chronic kidney disease. - resolved - gentle IV fluids 5. Hypertension. - Metoprolol 6. Hypothyroidism. Continue with replacement. 7. Deep venous thrombosis prophylaxis. - INR pending - on coumadin 8. Code status. She will be a full code. Dispo lives at home will order PT/OT Current Inpatient Medications: Current Inpatient Medications Medications (Trade) Dose Ordered Sig/Astrid Route Start Time Stop Time Status Last Admin Dose Admin Acetaminophen (Tylenol Tab) 650 mg Q4H PRN PO 03/27/17 20:45 04/26/17 20:44 03/28/17 21:47 650 MG Ondansetron HCl (Zofran Inj) 4 mg Q6H PRN IV 03/27/17 20:45 04/26/17 20:44 Ammonium Lactate (Lac-Hydrin) 1 appl PRN PRN EXT 03/27/17 20:45 04/26/17 20:44 Levothyroxine Sodium (Synthroid Tab) 50 mcg DAILYBB PO 03/28/17 06:00 04/27/17 05:59 03/29/17 05:53 50 MCG Meclizine HCl (Antivert Tab) 12.5 mg Q6H PRN PO 03/27/17 20:45 04/26/17 20:44 Metoprolol Tartrate (Lopressor Tab) 25 mg BID PO 03/27/17 21:00 04/26/17 20:59 03/29/17 08:12 25 MG Nitroglycerin (Nitrostat Tab) 0.4 mg PRN UT 03/27/17 20:45 04/26/17 20:44 Ropinirole HCl (Requip Tab) 0.5 mg QAM PO 03/28/17 09:00 04/27/17 08:59 03/29/17 08:11 0.5 MG Rosuvastatin Calcium (Crestor Tab) 10 mg DAILY PO 03/28/17 09:00 04/27/17 08:59 03/29/17 08:12 10 MG Citalopram Hydrobromide (celeXA TAB) 10 mg HS PO 03/27/17 22:30 04/26/17 22:29 03/28/17 20:43 10 MG Miscellaneous Information (Order Awaiting Action) 1 ea QS N/A 03/28/17 00:00 04/27/17 00:00 Miscellaneous Information (Order Awaiting Action) 1 ea QS N/A 03/28/17 00:00 04/27/17 00:00 Ropinirole HCl (Requip Tab) 1 mg BID@1645,2100 PO 03/28/17 16:45 04/27/17 16:44 03/28/17 20:43 1 MG Ropinirole HCl (Requip Tab) 0.5 mg DAILY PRN PO 03/28/17 08:15 04/27/17 08:14
[2017-03-29 10:36] LABS: INR 1.8 (0.9-1.1)
--- NOTE | 2017-03-29 14:08 | Neurology Consultation ---
Neurology Consultation Date of Consultation: Mar 29, 2017. Attending Physician: Jason Barros MD Primary Care Physician: Roly Vogel M.D. Reason for Consultation: recurrent syncope/dizziness History of Present Illness Source: patient, family Leslie is an 87 years old female with PMH of tachy-enid syndrome status post cardiac pacemaker, AF on Coumadin, CKD stage III, HTN, generalized anxiety disorder, restless leg syndrome, hyperlipidemia, hypothyroidism. She was at a [employer] dinner with her family after dinner she was sitting on a chair and stood up and walked toward her family members. She was with her daughter and daughter states she lowered her to the floor. They brought a chair and sat her down but she went out again. She was seen by neurology 08/29/2015 for a similar episode which was thought to be vasovagal. She states she knows when it is happening everything starts coming toward her. she states she was walking today with PT and did well but then they walked down the gould again and she had an episode. Dr Cornejo say the episode and brought her back in the room. Once in the room they took her blood pressure and it was high. denies CP, SOB, abdominal pain, weakness, numbness, tingling, N, V, vertigo, head injury, sweating, fever , ill contacts. Past Medical/Surgical History Medical Problems: (1) Anemia Status: Acute (2) Degenerative joint disease of knee, right Status: Acute (3) Subtherapeutic international normalized ratio (INR) Status: Acute (4) Syncope Status: Acute Social History Smoking Status: Never smoker Smokeless Tobacco Use: No Drug Use: none Housing Status: lives with family Occupation Status: retired Allergies Coded Allergies: Adhesives (Verified Allergy, Unknown, ADHESIVE TAPE, 12/31/15) Conjugated Estrogens (Verified Allergy, Unknown, SEVERE RASH, PAINFUL FROM VAGINAL CREAM, 12/31/15) Sulfa Antibiotics (Verified Allergy, Unknown, HIVES, RASH, 12/31/15) Tetanus Toxoid (Verified Allergy, Unknown, UNKNOWN, 12/31/15) Current Inpatient Medications Current Inpatient Medications Medications (Trade) Dose Ordered Sig/Astrid Route Start Time Stop Time Status Last Admin Dose Admin Acetaminophen (Tylenol Tab) 650 mg Q4H PRN PO 03/27/17 20:45 04/26/17 20:44 03/28/17 21:47 650 MG Ondansetron HCl (Zofran Inj) 4 mg Q6H PRN IV 03/27/17 20:45 04/26/17 20:44 Ammonium Lactate (Lac-Hydrin) 1 appl PRN PRN EXT 03/27/17 20:45 04/26/17 20:44 Levothyroxine Sodium (Synthroid Tab) 50 mcg DAILYBB PO 03/28/17 06:00 04/27/17 05:59 03/29/17 05:53 50 MCG Meclizine HCl (Antivert Tab) 12.5 mg Q6H PRN PO 03/27/17 20:45 04/26/17 20:44 03/29/17 12:56 12.5 MG Metoprolol Tartrate (Lopressor Tab) 25 mg BID PO 03/27/17 21:00 04/26/17 20:59 03/29/17 08:12 25 MG Nitroglycerin (Nitrostat Tab) 0.4 mg PRN UT 03/27/17 20:45 04/26/17 20:44 Ropinirole HCl (Requip Tab) 0.5 mg QAM PO 03/28/17 09:00 04/27/17 08:59 03/29/17 08:11 0.5 MG Rosuvastatin Calcium (Crestor Tab) 10 mg DAILY PO 03/28/17 09:00 04/27/17 08:59 03/29/17 08:12 10 MG Citalopram Hydrobromide (celeXA TAB) 10 mg HS PO 03/27/17 22:30 04/26/17 22:29 03/28/17 20:43 10 MG Miscellaneous Information (Order Awaiting Action) 1 ea QS N/A 03/28/17 00:00 04/27/17 00:00 Miscellaneous Information (Order Awaiting Action) 1 ea QS N/A 03/28/17 00:00 04/27/17 00:00 Ropinirole HCl (Requip Tab) 1 mg BID@1645,2100 PO 03/28/17 16:45 04/27/17 16:44 03/28/17 20:43 1 MG Ropinirole HCl (Requip Tab) 0.5 mg DAILY PRN PO 03/28/17 08:15 04/27/17 08:14 Physical Exam Vital Signs (Past 24 Hrs): Date Time Temp Pulse Resp B/P (MAP) Pulse Ox O2 Delivery O2 Flow Rate FiO2 03/29/17 12:00 Room Air 03/29/17 11:55 36.9 68 18 143/81 (101) 96 Room Air 03/29/17 10:02 64 22 168/94 (118) 100 03/29/17 09:57 86 25 161/104 (123) 100 Room Air 03/29/17 08:00 Room Air 03/29/17 07:44 36.5 61 18 141/73 (95) 95 Room Air 03/29/17 04:00 Room Air 03/29/17 03:40 36.6 73 17 160/70 (100) 98 Room Air 03/29/17 00:00 36.9 63 17 150/81 (104) 94 Room Air 03/29/17 00:00 Room Air 03/28/17 20:00 Room Air 03/28/17 18:50 36.5 67 19 164/73 (103) 97 Room Air 03/28/17 16:00 Room Air 03/28/17 15:16 36.9 82 19 166/75 (105) 98 Room Air 67 166/88 (114) 69 142/82 (102) Physical Exam: Constitutional: appearance nourished, healthy and normal Ears, Nose, Mouth and Throat: mucous membranes moist, no injection and skin normal, eyes normal Cardiovascular: normal S-1 and S-2 and regular rate and rhythm Respiratory: clear to auscultation (CTA) and no rales, rhonchi or wheeze Musculoskeletal: non pitting peripheral edema and good distal pulses Skin: no stigmata of neurocutaneous disease noted and normal and intact Eyes: extraocular muscles intact (EOMI) and pupils equal, round and reactive to light (PERRL) NEUROLOGIC EXAMINATION: Mental status: Alert and interactive Oriented to full date and location Oriented to person Speech fluent with no evidence of aphasia Cranial Nerves smile eye brow raise symmetric, tongue midline Reflexes: Deep tendon reflexes were symmetrical and graded 2/5. Plantar responses were flexor. Sensory: cool or vibration Coordination: finger to nose no bi pass Gait/Stance: Posture lying in bed Motor: Negative for pronator drift of out stretched arms with eyes closed. Strength: biceps triceps deltoids hand manager paid bilaterally 5/5, hip flex patellar flex ext plantar flex ext 5/5 bilaterally Laboratory Results Past 24 Hours: 03/29/17 06:14 Test 03/29/17 06:14 03/29/17 10:10 Anion Gap 6.0 mmol/L (3-11) Est Creatinine Clear Calc Drug Dose 29.8 ml/min Estimated GFR () 61.3 Estimated GFR (Non- 52.9 BUN/Creatinine Ratio 15.5 (10-20) Calcium Level 9.0 mg/dl (8.5-10.1) Magnesium Level 2.3 mg/dl (1.8-2.4) Prothrombin Time 18.8 SECONDS (9.0-12.0) Prothromb Time International Ratio 1.8 (0.9-1.1) Imaging CT head- No significant change compared to the prior study. No acute intracranial abnormality. carotid doppler- : Technically difficult study given high bifurcations but no convincing evidence for a hemodynamically significant stenosis. Impression 87 year old female with significant PMH which includes unexplained episodes of syncope Plan 2. pacemaker interrogated with no issues 3. carotid doppler no significant stenosis 4. CT head -no acute findings 5. orthostatic done -benign 6. cardiology - no cardiac issues at this time 7. MRA head and neck may r/o hypoperfusion 8. bedside the symptoms was reproduced and she had a 26 point drop in her systolic blood pressure will order the MRA head and neck and would likely benefit from a tilt table test. 9. if all is negative she will need an out patient [facility] vestibular clinic I have seen and discussed above patient with Dr Gracia Garcia, neurology Pt seen and examined, MRI reviewed. FAirly long hx of presyncope, [place] with standing. Pt also always gets this same feeling with getting lab work. In fact it is so regular that she has labs drawn lying dowan. When this last occurred with labs once pt sat up she lost consciousness. We ambulated with pt. Upon going from sit to stand systolic bp dropped 26 pts. Pt only minimally symptomatic. After a few steps similar sx. BP thereafter angel mildly. there was no sz activity and there no other neurologic sx. Provocative head manuevers neg. Imp. Suspect drops related to vagal response, ,as sx are the same as with blood drawing. If is possible that if the pt has post circ stenosis and she hypoperfused related to a vagal response or orthostasis that she could have some nonspecific spinning. I wonder if a tilt table test would geive more immediate and continuous bp monitoring. If MRA/tilt are neg could refer pt to vestibular clinic. MISHA Garcia MD
[2017-03-29] MEDS ORDERED: NURSING VERBAL MED ORDER ONE (15:00)
[2017-03-29] MEDS: WARFARIN SOD 2 MG TAB PO SCH (15:35)
[2017-03-29] MEDS ORDERED: WARFARIN SOD 1 MG TAB PO SCH (16:00)
--- NOTE | 2017-03-29 16:31 | DIAGNOSTIC IMAGING REPORT ---
MRI OF THE BRAIN WITHOUT CONTRAST CLINICAL HISTORY: Syncopal episodes. Possible stroke. COMPARISON STUDY: Noncontrast head CT dated 03/27/2017, MRI the brain dated 09/13/2012 FINDINGS: Sagittal T1, axial diffusion, proton density and T2 weighted axial, coronal FLAIR, and axial T1-weighted images were acquired. No intra or extra-axial mass lesions are visualized Axial diffusion-weighted images reveal no evidence of acute or subacute infarction. There is no evidence of ventricular dilatation. Proton density T2-weighted and FLAIR images reveal slightly progressive moderately extensive foci of increased T2 signal within the white matter, likely on a small vessel basis. There are no abnormal flow voids. IMPRESSION: No acute intracranial findings. Electronically signed by: Brain Crocker M.D. 03/29/2017 4:30 PM Dictated Date/Time: 03/29/2017 4:27 PM
[2017-03-29] MEDS: CITALOPRAM 20 MG TAB PO SCH (20:52)
[2017-03-29 21:10] LABS: INR 2.1 (0.9-1.1)
[2017-03-30] VITALS (9 sets, daily range): BP systolic 124–135; BP diastolic 67–70; PULSE 60–70; TEMP 36.5–37.3; O2SAT 94–96
[2017-03-30] MEDS: LEVOTHYROXINE 50 MCG TAB PO SCH (05:21)
[2017-03-30 07:02] LABS: CALCIUM 8.7 mg/dl (8.5-10.1); CREATININE 1.08 mg/dl (0.60-1.20); POTASSIUM 4.2 mmol/L (3.5-5.1)
[2017-03-30] MEDS: ROPINIROLE HCL 1 MG TAB PO SCH ×3 (08:23→19:53)
[2017-03-30] MEDS: ROSUVASTATIN CALCIUM 10 MG TAB PO SCH (08:23)
[2017-03-30] MEDS: METOPROLOL TARTRATE 25 MG TAB PO SCH ×2 (08:23→19:53)
--- NOTE | 2017-03-30 12:58 | Progress Note ---
Medicine Progress Note Date & Time of Visit: Mar 30, 2017 at 12:35. Subjective Pt was seen and examined Lying in bed with no distress Pt said that she is afraid to walk because she almost passed out and fell yesterday She said she almost fell yesterday after Dr. Cornejo caught her Pt said that during the episodes she did not have any chest pain, palpitation, dizziness, blurry vision and SOB Objective Last 8 Hrs Date Time Temp Pulse Resp B/P (MAP) Pulse Ox O2 Delivery O2 Flow Rate FiO2 03/30/17 11:27 36.9 70 20 135/70 (91) 94 Room Air 03/30/17 08:00 95 Room Air 03/30/17 07:51 37.3 67 20 124/67 (86) 95 Room Air Physical Exam: General- No acute distress Head- atraumatic Eyes- PERRL, EOMI ENT- oropharynx clear Neck- supple, no JVD Lungs- No wheezing Heart- regular rhythm Abdomen- normal bowel sounds, soft Extremities- no calf tenderness Neuro- alert, oriented x 3; PERRL, EOMI Skin- warm & dry Laboratory Results: Last 24 Hours Test 03/29/17 16:36 03/29/17 20:47 03/30/17 06:11 Bedside Glucose 90 mg/dl Prothrombin Time 21.6 SECONDS Prothromb Time International Ratio 2.1 Sodium Level 137 mmol/L Potassium Level 4.2 mmol/L Chloride Level 104 mmol/L Carbon Dioxide Level 26 mmol/L Anion Gap 6.0 mmol/L Blood Urea Nitrogen 19 mg/dl Creatinine 1.08 mg/dl Est Creatinine Clear Calc Drug Dose 26.7 ml/min Estimated GFR () 53.8 Estimated GFR (Non- 46.4 BUN/Creatinine Ratio 17.2 Random Glucose 90 mg/dl Calcium Level 8.7 mg/dl Magnesium Level 2.4 mg/dl Assessment & Plan 87 year old female with history of TBS s/p Pacemaker, A fib on Coumadin, HTN, CKD 3, presenting with syncope. Recurrent Syncope Possible vasovagal CT head showed no acute findings Carotid u/s showed no significant stenosis MRI showed no acute intracranial findings. Pacemaker was interrogated and working fine MRA head and neck pending Pt seems to have prior syncope when lab drawn If symptoms continue and imaging negative, Neuro recommended vestibular rehab ECHO SHOWED * The left ventricle is normal in size. * Left ventricular systolic function is normal. * Ejection Fraction = 55-60%. * The right ventricular systolic function is normal. * Grade I diastolic dysfunction, (abnormal relaxation pattern). * The left atrium is moderately dilated. * The right atrium is moderately dilated. * There is mild mitral regurgitation. * There is moderate tricuspid regurgitation. Tachy-enid syndrome status post cardiac pacemaker. Pacemaker was interrogated and has been working fine Paroxysmal atrial fibrillation. Rated control On Sinus rhythm Continue Metoprolol Cardiology on board INR 2.1 continue Coumadin Acute kidney injury with chronic kidney disease. Resolved Continue monitor BMP Hypertension. BP stable Metoprolol Hypothyroidism. Continue with levothyroxine replacement. Deep venous thrombosis prophylaxis. INR 2.1 On Coumadin CODE STATUS FULL CODE DISPOSITION Will discharge home once medically stable Consultants: Cardio Neuro Current Inpatient Medications: Current Inpatient Medications Medications (Trade) Dose Ordered Sig/Astrid Route Start Time Stop Time Status Last Admin Dose Admin Acetaminophen (Tylenol Tab) 650 mg Q4H PRN PO 03/27/17 20:45 04/26/17 20:44 03/28/17 21:47 650 MG Ondansetron HCl (Zofran Inj) 4 mg Q6H PRN IV 03/27/17 20:45 04/26/17 20:44 Ammonium Lactate (Lac-Hydrin) 1 appl PRN PRN EXT 03/27/17 20:45 04/26/17 20:44 Levothyroxine Sodium (Synthroid Tab) 50 mcg DAILYBB PO 03/28/17 06:00 04/27/17 05:59 03/30/17 05:21 50 MCG Meclizine HCl (Antivert Tab) 12.5 mg Q6H PRN PO 03/27/17 20:45 04/26/17 20:44 03/29/17 12:56 12.5 MG Metoprolol Tartrate (Lopressor Tab) 25 mg BID PO 03/27/17 21:00 04/26/17 20:59 03/30/17 08:23 25 MG Nitroglycerin (Nitrostat Tab) 0.4 mg PRN UT 03/27/17 20:45 04/26/17 20:44 Ropinirole HCl (Requip Tab) 0.5 mg QAM PO 03/28/17 09:00 04/27/17 08:59 1/30/18 08:23 0.5 MG Rosuvastatin Calcium (Crestor Tab) 10 mg DAILY PO 03/28/17 09:00 04/27/17 08:59 03/30/17 08:23 10 MG Citalopram Hydrobromide (celeXA TAB) 10 mg HS PO 03/27/17 22:30 04/26/17 22:29 03/29/17 20:52 10 MG Miscellaneous Information (Order Awaiting Action) 1 ea QS N/A 03/28/17 00:00 04/27/17 00:00 Miscellaneous Information (Order Awaiting Action) 1 ea QS N/A 03/28/17 00:00 04/27/17 00:00 Ropinirole HCl (Requip Tab) 1 mg BID@1645,2100 PO 03/28/17 16:45 04/27/17 16:44 03/29/17 20:51 1 MG Ropinirole HCl (Requip Tab) 0.5 mg DAILY PRN PO 03/28/17 08:15 04/27/17 08:14 Warfarin Sodium (Coumadin Tab) 2 mg DAILY@16 PO 03/29/17 16:00 04/28/17 15:59 03/29/17 15:35 2 MG
[2017-03-30] MEDS ORDERED: GADAVIST IV PRN (13:00)
--- NOTE | 2017-03-30 13:01 | DIAGNOSTIC IMAGING REPORT ---
MRA OF THE INTRACRANIAL CIRCULATION WITHOUT CONTRAST CLINICAL HISTORY: Decrease blood pressure with standing. Syncope. COMPARISON STUDY: None. TECHNIQUE: Utilizing a 1.5 Maritza magnet and 3-D [id number] technique, unenhanced MRA of the intracranial circulation was obtained. FINDINGS: The bilateral M1, M2, A1 and A2 segments are patent. Posterior circulation appears intact. There is no intracranial aneurysm. There is persistence of the right posterior cerebral artery. No high-grade stenoses are identified within the major intracranial vessels. IMPRESSION: Unremarkable MRA of the intracranial circulation. Electronically signed by: Erick Singh M.D. 03/30/2017 1:00 PM Dictated Date/Time: 03/30/2017 12:57 PM
--- NOTE | 2017-03-30 13:09 | DIAGNOSTIC IMAGING REPORT ---
NECK MRA HISTORY: Syncope. Systolic hypertension upon standing. TECHNIQUE: [id number] and gadolinium-enhanced MRA of the neck was performed both before and after the intravenous administration of contrast. All measurements were calculated based on NASCET criteria. The patient was administered 6 cc of intravenous Gadavist. COMPARISON STUDY: Carotid Doppler ultrasound dated 03/28/2017 FINDINGS: The aortic arch and proximal great vessels are widely patent. There is no significant stenosis, occlusion, or dissection identified within the bilateral common carotid, internal carotid, or vertebral arteries. Atheromatous plaque is visualized most pronounced at the level of the left carotid bulb IMPRESSION: No significant stenosis, occlusion, or dissection identified within the carotid or vertebral arteries. Electronically signed by: Brain Crocker M.D. 03/30/2017 1:08 PM Dictated Date/Time: 03/30/2017 12:58 PM
--- NOTE | 2017-03-30 13:27 | Neurology Progress Notes ---
Neurology Progress Note Date of Service Mar 30, 2017. Subjective Leslie is an 87 years old female with PMH of tachy-enid syndrome status post cardiac pacemaker, AF on Coumadin, CKD stage III, HTN, generalized anxiety disorder, restless leg syndrome, hyperlipidemia, hypothyroidism. She was at a [employer] dinner with her family after dinner she was sitting on a chair and stood up and walked toward her family members. She was with her daughter and daughter states she lowered her to the floor. They brought a chair and sat her down but she went out again. She was seen by neurology 08/29/2015 for a similar episode which was thought to be vasovagal. She states she knows when it is happening everything starts coming toward her. she states she was walking today with PT and did well but then they walked down the gould again and she had an episode. Dr Cornejo say the episode and brought her back in the room. Once in the room they took her blood pressure and it was high. Leslie and her daughter are in the room today and state she just returned from MRA head and neck. She state she feels ok today but she hasn't gotten to her her lunch and she is hungry. They are not allowing her out of bed so she has not had any episodes. denies CP, SOB, abdominal pain, weakness, numbness, tingling, N, V, vertigo, head injury, sweating, fever, ill contacts. Objective Date Time Temp Pulse Resp B/P (MAP) Pulse Ox O2 Delivery O2 Flow Rate FiO2 03/30/17 12:00 96 Room Air 03/30/17 11:27 36.9 70 20 135/70 (91) 94 Room Air 03/30/17 08:00 95 Room Air 03/30/17 07:51 37.3 67 20 124/67 (86) 95 Room Air 03/30/17 04:00 Room Air 03/30/17 03:35 37.0 60 16 134/70 (91) 96 Room Air 03/30/17 00:00 Room Air 03/29/17 23:33 37.0 75 16 145/73 (97) 95 Room Air 03/29/17 20:00 Room Air 03/29/17 19:46 36.6 67 20 128/71 (90) 94 Room Air 03/29/17 16:38 36.7 66 20 160/79 (106) 97 Room Air 03/29/17 16:00 Room Air Last 24 Hours Test 03/29/17 16:36 03/29/17 20:47 03/30/17 06:11 Bedside Glucose 90 mg/dl Prothrombin Time 21.6 SECONDS Prothromb Time International Ratio 2.1 Sodium Level 137 mmol/L Potassium Level 4.2 mmol/L Chloride Level 104 mmol/L Carbon Dioxide Level 26 mmol/L Anion Gap 6.0 mmol/L Blood Urea Nitrogen 19 mg/dl Creatinine 1.08 mg/dl Est Creatinine Clear Calc Drug Dose 26.7 ml/min Estimated GFR () 53.8 Estimated GFR (Non- 46.4 BUN/Creatinine Ratio 17.2 Random Glucose 90 mg/dl Calcium Level 8.7 mg/dl Magnesium Level 2.4 mg/dl Imaging: MRA head- Unremarkable MRA of the intracranial circulation. MRA neck- No significant stenosis, occlusion, or dissection identified within the carotid or vertebral arteries. MRI brain without- No acute intracranial findings. Exam: Physical Exam: Constitutional: appearance nourished, healthy and normal Ears, Nose, Mouth and Throat: mucous membranes moist, no injection and skin normal, eyes normal Cardiovascular: irregular Respiratory: clear to auscultation (CTA) and no rales, rhonchi or wheeze Musculoskeletal: no peripheral edema and good distal pulses Skin: no stigmata of neurocutaneous disease noted and normal and intact Eyes: extraocular muscles intact (EOMI) and pupils equal, round and reactive to light (PERRL) NEUROLOGIC EXAMINATION: Mental status: Alert and interactive Oriented to full date and location Oriented to person Speech fluent with no evidence of aphasia Cranial Nerves facial symmetry Gait/Stance: Posture sitting up in bed Current Inpatient Medications Medications (Trade) Dose Ordered Sig/Astrid Route Start Time Stop Time Status Last Admin Dose Admin Acetaminophen (Tylenol Tab) 650 mg Q4H PRN PO 03/27/17 20:45 04/26/17 20:44 03/28/17 21:47 650 MG Ondansetron HCl (Zofran Inj) 4 mg Q6H PRN IV 03/27/17 20:45 04/26/17 20:44 Ammonium Lactate (Lac-Hydrin) 1 appl PRN PRN EXT 03/27/17 20:45 04/26/17 20:44 Levothyroxine Sodium (Synthroid Tab) 50 mcg DAILYBB PO 03/28/17 06:00 04/27/17 05:59 03/30/17 05:21 50 MCG Meclizine HCl (Antivert Tab) 12.5 mg Q6H PRN PO 03/27/17 20:45 04/26/17 20:44 03/29/17 12:56 12.5 MG Metoprolol Tartrate (Lopressor Tab) 25 mg BID PO 03/27/17 21:00 04/26/17 20:59 03/30/17 08:23 25 MG Nitroglycerin (Nitrostat Tab) 0.4 mg PRN UT 03/27/17 20:45 04/26/17 20:44 Ropinirole HCl (Requip Tab) 0.5 mg QAM PO 03/28/17 09:00 04/27/17 08:59 03/30/17 08:23 0.5 MG Rosuvastatin Calcium (Crestor Tab) 10 mg DAILY PO 03/28/17 09:00 04/27/17 08:59 03/30/17 08:23 10 MG Citalopram Hydrobromide (celeXA TAB) 10 mg HS PO 03/27/17 22:30 04/26/17 22:29 03/29/17 20:52 10 MG Miscellaneous Information (Order Awaiting Action) 1 ea QS N/A 03/28/17 00:00 04/27/17 00:00 Miscellaneous Information (Order Awaiting Action) 1 ea QS N/A 03/28/17 00:00 04/27/17 00:00 Ropinirole HCl (Requip Tab) 1 mg BID@1645,2100 PO 03/28/17 16:45 04/27/17 16:44 03/29/17 20:51 1 MG Ropinirole HCl (Requip Tab) 0.5 mg DAILY PRN PO 03/28/17 08:15 04/27/17 08:14 Warfarin Sodium (Coumadin Tab) 2 mg DAILY@16 PO 03/29/17 16:00 04/28/17 15:59 03/29/17 15:35 2 MG Gadobutrol (Gadavist) 6 mmol UD PRN IV 03/30/17 13:00 04/03/17 12:59 Impression 87 year old female with significant PMH which includes unexplained episodes of syncope Plan 1. MRI no acute findings 2. pacemaker interrogated with no issues 3. carotid doppler no significant stenosis 4. CT head -no acute findings 5. orthostatic done bedside 6. cardiology - no cardiac issues at this time 7. MRA head and neck may r/o hypoperfusion- no issues with vascular of head and neck 8. bedside the symptoms was reproduced and she had a 26 point drop in her systolic blood pressure will order the MRA head and neck and would likely benefit from a tilt table test with continual blood pressure monitoring 9. if all is negative she will need an out patient [facility] vestibular clinic I discussed above patient with Dr Gracia Garcia, neurology MRA with no significant intracranial or extracranial disease. Suggest tilt as sx are suspicious for hypotension, in part bc it occurs with blood drawing. If neg, then vestibular clinic [facility] for [facility]. MISHA Garcia MD
[2017-03-30] MEDS: WARFARIN SOD 2 MG TAB PO SCH (17:22)
[2017-03-30] MEDS: CITALOPRAM 20 MG TAB PO SCH (19:52)
[2017-03-31] VITALS (13 sets, daily range): BP systolic 106–152; BP diastolic 63–80; PULSE 60–83; TEMP 36.4–37; O2SAT 92–97
[2017-03-31] MEDS: ACETAMINOPHEN 325 MG TAB PO PRN (04:28)
[2017-03-31] MEDS: LEVOTHYROXINE 50 MCG TAB PO SCH (06:06)
[2017-03-31 06:49] LABS: INR 2.3 (0.9-1.1)
[2017-03-31 07:03] LABS: CALCIUM 8.5 mg/dl (8.5-10.1); CREATININE 1.1 mg/dl (0.60-1.20); POTASSIUM 4.3 mmol/L (3.5-5.1)
[2017-03-31] MEDS: ROSUVASTATIN CALCIUM 10 MG TAB PO SCH (07:51)
[2017-03-31] MEDS: ROPINIROLE HCL 1 MG TAB PO SCH ×3 (07:52→21:59)
[2017-03-31] MEDS: METOPROLOL TARTRATE 25 MG TAB PO SCH ×2 (07:52→21:00)
--- NOTE | 2017-03-31 13:38 | PROGRESS NOTE ---
DATE: 03/31/2017 FOLLOWUP VISIT SUBJECTIVE: The patient is an 87-year-old female who has a known vasovagal syncope. She was admitted after a syncopal event. She has had an extensive workup here in the hospital. The other day, she was walking to the gould with physical therapy and had another event. At that time, it was noted that her pacemaker was functioning appropriately and she had an adequate blood pressure. Neurology has been involved with her care and thus far, all her imaging scans are negative. We will check additional orthostatic blood pressures; however, when the last time we checked these, they were adequate. At this time, I do not believe that a Tilt table test would provide any additional beneficial information. OBJECTIVE: VITAL SIGNS: Blood pressure is 125/70 and pulse is regular at 60 beats per minute. She is afebrile. GENERAL: She is alert and oriented in no acute distress. HEENT: She is normocephalic. Pupils are equal and reactive to light. Extraocular muscles are intact bilaterally. NECK: The neck veins are flat. Carotids have good upstrokes bilaterally without bruits. Thyroid is nonpalpable. RESPIRATORY: Breath sounds equal bilaterally and clear to auscultation. CARDIOVASCULAR: Heart has a regular rhythm. Normal S1 and S2. No S3 or S4. No cardiac rubs or murmurs. GASTROINTESTINAL: Abdomen is soft and nontender without organomegaly. EXTREMITIES: Free of edema, digit clubbing, or cyanosis. NEUROLOGIC: Grossly intact. SKIN: Warm to touch. LYMPH NODES: Negative to palpation. LABORATORY DATA: Potassium is 4.3 and creatinine is 1.1. IMPRESSION: 1. Recurrent syncopal events, most likely vasovagal. 2. Appropriately functioning dual chamber pacemaker. 3. History of tachybrady syndrome with paroxysmal atrial fibrillation. RECOMMENDATIONS: As outlined above, I do not believe a Tilt table study would provide any additional information at this time. We will continue to take orthostatic blood pressures here on the floor. I have also recommended that physical therapy try to ambulate the patient. She is anxious to return home and I think if she has no more events, then by tomorrow, I think she may be able to be discharged to outpatient followup.
[2017-03-31] MEDS: WARFARIN SOD 2 MG TAB PO SCH (15:32)
--- NOTE | 2017-03-31 15:55 | Neurology Progress Notes ---
Neurology Progress Note Date of Service Mar 31, 2017. Subjective Leslie is an 87 years old female with PMH of tachy-enid syndrome status post cardiac pacemaker, AF on Coumadin, CKD stage III, HTN, generalized anxiety disorder, restless leg syndrome, hyperlipidemia, hypothyroidism. She was at a [employer] dinner with her family after dinner she was sitting on a chair and stood up and walked toward her family members. She was with her daughter and daughter states she lowered her to the floor. They brought a chair and sat her down but she went out again. She was seen by neurology 08/29/2015 for a similar episode which was thought to be vasovagal. She states she knows when it is happening everything starts coming toward her. she states she was walking today with PT and did well but then they walked down the gould again and she had an episode. Dr Cornejo say the episode and brought her back in the room. Once in the room they took her blood pressure and it was high. Leslie and her daughter are in the room today. They are interested in her going home today. She has been out of bed with PT and has had no events. denies CP, SOB, abdominal pain, weakness, numbness, tingling, N, V, vertigo, head injury, sweating, fever, ill contacts. Objective Date Time Temp Pulse Resp B/P (MAP) Pulse Ox O2 Delivery O2 Flow Rate FiO2 03/31/17 15:08 36.9 83 16 107/65 (79) 94 Room Air 03/31/17 14:16 63 93 03/31/17 13:57 67 114/75 (88) 72 120/75 (90) 72 125/64 (84) 03/31/17 12:00 Room Air 03/31/17 11:30 37.0 62 16 115/67 (83) 96 Room Air 03/31/17 08:00 Room Air 03/31/17 07:52 37.0 67 16 134/75 (94) 95 Room Air 03/31/17 04:00 Room Air 03/31/17 03:58 36.9 60 17 152/73 (99) 92 Room Air 03/31/17 00:00 Room Air 03/30/17 23:33 36.5 64 18 125/70 (88) 95 Room Air 03/30/17 20:31 36.5 61 20 127/69 (88) 94 Room Air 03/30/17 20:00 Room Air 03/30/17 16:00 95 Room Air Last 24 Hours Test 03/31/17 06:11 Prothrombin Time 23.8 SECONDS Prothromb Time International Ratio 2.3 Sodium Level 135 mmol/L Potassium Level 4.3 mmol/L Chloride Level 104 mmol/L Carbon Dioxide Level 24 mmol/L Anion Gap 7.0 mmol/L Blood Urea Nitrogen 19 mg/dl Creatinine 1.10 mg/dl Est Creatinine Clear Calc Drug Dose 26.2 ml/min Estimated GFR () 52.6 Estimated GFR (Non- 45.4 BUN/Creatinine Ratio 17.5 Random Glucose 87 mg/dl Calcium Level 8.5 mg/dl Magnesium Level 2.4 mg/dl Imaging: no new imaging Exam: gen: alert NAD lungs CTA CV RRR biceps triceps hand support staff 5/5 bilaterally hip flex 5/5 bilaterally finger to nose with no bipass or tremor facial symmetry with smile and eye brow raise Current Inpatient Medications Medications (Trade) Dose Ordered Sig/Astrid Route Start Time Stop Time Status Last Admin Dose Admin Acetaminophen (Tylenol Tab) 650 mg Q4H PRN PO 03/27/17 20:45 04/26/17 20:44 03/31/17 04:28 650 MG Ondansetron HCl (Zofran Inj) 4 mg Q6H PRN IV 03/27/17 20:45 04/26/17 20:44 Ammonium Lactate (Lac-Hydrin) 1 appl PRN PRN EXT 03/27/17 20:45 04/26/17 20:44 Levothyroxine Sodium (Synthroid Tab) 50 mcg DAILYBB PO 03/28/17 06:00 04/27/17 05:59 03/31/17 06:06 50 MCG Meclizine HCl (Antivert Tab) 12.5 mg Q6H PRN PO 03/27/17 20:45 04/26/17 20:44 03/29/17 12:56 12.5 MG Metoprolol Tartrate (Lopressor Tab) 25 mg BID PO 03/27/17 21:00 04/26/17 20:59 03/31/17 07:52 25 MG Nitroglycerin (Nitrostat Tab) 0.4 mg PRN UT 03/27/17 20:45 04/26/17 20:44 Ropinirole HCl (Requip Tab) 0.5 mg QAM PO 03/28/17 09:00 04/27/17 08:59 03/31/17 07:52 0.5 MG Rosuvastatin Calcium (Crestor Tab) 10 mg DAILY PO 03/28/17 09:00 04/27/17 08:59 03/31/17 07:51 10 MG Citalopram Hydrobromide (celeXA TAB) 10 mg HS PO 03/27/17 22:30 04/26/17 22:29 03/30/17 19:52 10 MG Miscellaneous Information (Order Awaiting Action) 1 ea QS N/A 03/28/17 00:00 04/27/17 00:00 Miscellaneous Information (Order Awaiting Action) 1 ea QS N/A 03/28/17 00:00 04/27/17 00:00 Ropinirole HCl (Requip Tab) 1 mg BID@1645,2100 PO 03/28/17 16:45 04/27/17 16:44 03/31/17 15:32 1 MG Ropinirole HCl (Requip Tab) 0.5 mg DAILY PRN PO 03/28/17 08:15 04/27/17 08:14 Warfarin Sodium (Coumadin Tab) 2 mg DAILY@16 PO 03/29/17 16:00 04/28/17 15:59 03/31/17 15:32 2 MG Gadobutrol (Gadavist) 6 mmol UD PRN IV 03/30/17 13:00 04/03/17 12:59 Impression 87 year old female with significant PMH which includes unexplained episodes of syncope Plan 1. MRI no acute findings 2. pacemaker interrogated with no issues 3. carotid doppler no significant stenosis 4. CT head -no acute findings 5. orthostatic done bedside 6. cardiology - no cardiac issues at this time- Dr Cornejo does not feel a tilt table test is needed at this time 7. MRA head and neck may r/o hypoperfusion- no issues with vascular of head and neck 8. bedside the symptoms was reproduced and she had a 26 point drop in her systolic blood pressure will order the MRA head and neck and would likely benefit from a tilt table test with continual blood pressure monitoring 9. if all is negative she will need an out patient [facility] vestibular clinic 10. follow up with neurology in 2-[address] Gracia Garcia, or Gracia Michaud PAC schedule I have seen and discussed above patient with Dr Gracia Garcia, neurology Pt not seen, highly suspicious of orthostatics, tilt was not thought to be indicated. REcommend vestibular testing at [facility] [place]. MISHA Garcia MD
--- NOTE | 2017-03-31 19:20 | Progress Note ---
Medicine Progress Note Date & Time of Visit: Mar 31, 2017 at 10:55. Subjective Pt was seen and examined Lying in bed with no distress with daughter at bedside Pt said wants to go home today She walked with PT today with no distress Pt has not been urinated by herself today yesterday she was void by herself Denies any dizziness, SOB, palpitation and chest pain. Objective Last 8 Hrs Date Time Temp Pulse Resp B/P (MAP) Pulse Ox O2 Delivery O2 Flow Rate FiO2 03/31/17 16:00 96 Room Air 03/31/17 15:08 36.9 83 16 107/65 (79) 94 Room Air 03/31/17 14:16 63 93 03/31/17 13:57 67 114/75 (88) 72 120/75 (90) 72 125/64 (84) 03/31/17 12:00 Room Air 03/31/17 11:30 37.0 62 16 115/67 (83) 96 Room Air Physical Exam: General- No acute distress Head- atraumatic Eyes- PERRL, EOMI ENT- oropharynx clear Neck- supple, no JVD Lungs- No wheezing Heart- regular rhythm Abdomen- normal bowel sounds, soft Extremities- no calf tenderness Neuro- alert, oriented x 3; PERRL, EOMI Skin- warm & dry Laboratory Results: Last 24 Hours Test 03/31/17 06:11 Prothrombin Time 23.8 SECONDS Prothromb Time International Ratio 2.3 Sodium Level 135 mmol/L Potassium Level 4.3 mmol/L Chloride Level 104 mmol/L Carbon Dioxide Level 24 mmol/L Anion Gap 7.0 mmol/L Blood Urea Nitrogen 19 mg/dl Creatinine 1.10 mg/dl Est Creatinine Clear Calc Drug Dose 26.2 ml/min Estimated GFR () 52.6 Estimated GFR (Non- 45.4 BUN/Creatinine Ratio 17.5 Random Glucose 87 mg/dl Calcium Level 8.5 mg/dl Magnesium Level 2.4 mg/dl Assessment & Plan 87 year old female with history of TBS s/p Pacemaker, A fib on Coumadin, HTN, CKD 3, presenting with syncope. Recurrent Syncope Possible vasovagal CT head showed no acute findings Carotid u/s showed no significant stenosis MRI showed no acute intracranial findings. Pacemaker was interrogated and working fine MRA head and neck pending Pt seems to have prior syncope when lab drawn MRA neck showed No significant stenosis, occlusion, or dissection identified within the carotid or vertebral arteries MRA head unremarkable MRA of the intracranial circulation. Neuro recommended vestibular rehab if symptoms continue No more episodes ECHO SHOWED * The left ventricle is normal in size. * Left ventricular systolic function is normal. * Ejection Fraction = 55-60%. * The right ventricular systolic function is normal. * Grade I diastolic dysfunction, (abnormal relaxation pattern). * The left atrium is moderately dilated. * The right atrium is moderately dilated. * There is mild mitral regurgitation. * There is moderate tricuspid regurgitation. Urinary retention Has been straight cath If no void, will consult urology continue monitor and straight cath if bladder u/s greater than 500ml Tachy-enid syndrome status post cardiac pacemaker. Pacemaker was interrogated and has been working fine Paroxysmal atrial fibrillation. Rated control On Sinus rhythm Continue Metoprolol Cardiology on board INR 2.3 continue Coumadin Acute kidney injury with chronic kidney disease. Resolved Continue monitor BMP Hypertension. BP stable Metoprolol Hypothyroidism. Continue with levothyroxine replacement. Deep venous thrombosis prophylaxis. INR 2.3 On Coumadin CODE STATUS FULL CODE DISPOSITION Will discharge home once medically stable Consultants: Cardio Neuro Current Inpatient Medications: Current Inpatient Medications Medications (Trade) Dose Ordered Sig/Astrid Route Start Time Stop Time Status Last Admin Dose Admin Acetaminophen (Tylenol Tab) 650 mg Q4H PRN PO 03/27/17 20:45 04/26/17 20:44 03/31/17 04:28 650 MG Ondansetron HCl (Zofran Inj) 4 mg Q6H PRN IV 03/27/17 20:45 04/26/17 20:44 Ammonium Lactate (Lac-Hydrin) 1 appl PRN PRN EXT 03/27/17 20:45 04/26/17 20:44 Levothyroxine Sodium (Synthroid Tab) 50 mcg DAILYBB PO 03/28/17 06:00 04/27/17 05:59 03/31/17 06:06 50 MCG Meclizine HCl (Antivert Tab) 12.5 mg Q6H PRN PO 03/27/17 20:45 04/26/17 20:44 03/29/17 12:56 12.5 MG Metoprolol Tartrate (Lopressor Tab) 25 mg BID PO 03/27/17 21:00 04/26/17 20:59 03/31/17 07:52 25 MG Nitroglycerin (Nitrostat Tab) 0.4 mg PRN UT 03/27/17 20:45 04/26/17 20:44 Ropinirole HCl (Requip Tab) 0.5 mg QAM PO 03/28/17 09:00 04/27/17 08:59 03/31/17 07:52 0.5 MG Rosuvastatin Calcium (Crestor Tab) 10 mg DAILY PO 03/28/17 09:00 04/27/17 08:59 03/31/17 07:51 10 MG Citalopram Hydrobromide (celeXA TAB) 10 mg HS PO 03/27/17 22:30 04/26/17 22:29 03/30/17 19:52 10 MG Miscellaneous Information (Order Awaiting Action) 1 ea QS N/A 03/28/17 00:00 04/27/17 00:00 Miscellaneous Information (Order Awaiting Action) 1 ea QS N/A 03/28/17 00:00 04/27/17 00:00 Ropinirole HCl (Requip Tab) 1 mg BID@1645,2100 PO 03/28/17 16:45 04/27/17 16:44 03/31/17 15:32 1 MG Ropinirole HCl (Requip Tab) 0.5 mg DAILY PRN PO 03/28/17 08:15 04/27/17 08:14 Warfarin Sodium (Coumadin Tab) 2 mg DAILY@16 PO 03/29/17 16:00 04/28/17 15:59 03/31/17 15:32 2 MG Gadobutrol (Gadavist) 6 mmol UD PRN IV 03/30/17 13:00 04/03/17 12:59
[2017-03-31] MEDS: CITALOPRAM 20 MG TAB PO SCH (21:00)
[2017-04-01 03:37] VITALS: BP 123/67; PULSE 59; TEMP 36.4; O2SAT 99
[2017-04-01] MEDS: LEVOTHYROXINE 50 MCG TAB PO SCH (05:51)
[2017-04-01 06:49] LABS: INR 2.4 (0.9-1.1)
[2017-04-01 07:09] LABS: CALCIUM 8.7 mg/dl (8.5-10.1); CREATININE 1.08 mg/dl (0.60-1.20); POTASSIUM 3.9 mmol/L (3.5-5.1)
[2017-04-01] MEDS: ROPINIROLE HCL 1 MG TAB PO SCH (07:49)
[2017-04-01] MEDS: METOPROLOL TARTRATE 25 MG TAB PO SCH (07:49)
[2017-04-01] MEDS: ROSUVASTATIN CALCIUM 10 MG TAB PO SCH (07:49)
[2017-04-01 08:00] VITALS: BP 123/72; PULSE 66; TEMP 36.9; O2SAT 95
[2017-04-01 09:20] VITALS: BP_SYST 113; BP_SYST 119; BP_SYST 121; BP_DIAS 68; BP_DIAS 69; BP_DIAS 93; PULSE 70; PULSE 71; TEMP 36.8; O2SAT 99
[2017-04-01 11:44] VITALS: BP 133/62; PULSE 74; TEMP 36.9; O2SAT 96
--- NOTE | 2017-04-01 12:45 | Progress Note ---
Subjective Date of Service: Apr 01, 2017. Subjective The patient had an uneventful night. She has been ambulating in the gould as well as in her room. She's had no additional episodes of dizziness, lightheadedness, presyncope or syncope. I reviewed her telemetry and she's had no significant arrhythmias. Problem List Medical Problems: (1) Anemia Status: Acute (2) Degenerative joint disease of knee, right Status: Acute (3) Subtherapeutic international normalized ratio (INR) Status: Acute (4) Syncope Status: Acute Review of Systems All Other Systems: Reviewed and Negative Medications Current Inpatient Medications Medications (Trade) Dose Ordered Sig/Astrid Route Start Time Stop Time Status Last Admin Dose Admin Acetaminophen (Tylenol Tab) 650 mg Q4H PRN PO 03/27/17 20:45 04/26/17 20:44 03/31/17 04:28 650 MG Ondansetron HCl (Zofran Inj) 4 mg Q6H PRN IV 03/27/17 20:45 04/26/17 20:44 Ammonium Lactate (Lac-Hydrin) 1 appl PRN PRN EXT 03/27/17 20:45 04/26/17 20:44 Levothyroxine Sodium (Synthroid Tab) 50 mcg DAILYBB PO 03/28/17 06:00 04/27/17 05:59 04/01/17 05:51 50 MCG Meclizine HCl (Antivert Tab) 12.5 mg Q6H PRN PO 03/27/17 20:45 04/26/17 20:44 03/29/17 12:56 12.5 MG Metoprolol Tartrate (Lopressor Tab) 25 mg BID PO 03/27/17 21:00 04/26/17 20:59 04/01/17 07:49 25 MG Nitroglycerin (Nitrostat Tab) 0.4 mg PRN UT 03/27/17 20:45 04/26/17 20:44 Ropinirole HCl (Requip Tab) 0.5 mg QAM PO 03/28/17 09:00 04/27/17 08:59 04/01/17 07:49 0.5 MG Rosuvastatin Calcium (Crestor Tab) 10 mg DAILY PO 03/28/17 09:00 04/27/17 08:59 04/01/17 07:49 10 MG Citalopram Hydrobromide (celeXA TAB) 10 mg HS PO 03/27/17 22:30 04/26/17 22:29 03/31/17 21:00 10 MG Miscellaneous Information (Order Awaiting Action) 1 ea QS N/A 03/28/17 00:00 04/27/17 00:00 Miscellaneous Information (Order Awaiting Action) 1 ea QS N/A 03/28/17 00:00 04/27/17 00:00 Ropinirole HCl (Requip Tab) 1 mg BID@1645,2100 PO 03/28/17 16:45 04/27/17 16:44 03/31/17 21:59 1 MG Ropinirole HCl (Requip Tab) 0.5 mg DAILY PRN PO 03/28/17 08:15 04/27/17 08:14 Warfarin Sodium (Coumadin Tab) 2 mg DAILY@16 PO 03/29/17 16:00 04/28/17 15:59 03/31/17 15:32 2 MG Gadobutrol (Gadavist) 6 mmol UD PRN IV 03/30/17 13:00 04/03/17 12:59 Objective Vital Signs Date Time Temp Pulse Resp B/P (MAP) Pulse Ox O2 Delivery O2 Flow Rate FiO2 04/01/17 12:00 Room Air 04/01/17 11:44 36.9 74 18 133/62 (85) 96 04/01/17 09:20 36.8 70 18 121/68 (85) 99 71 113/69 (84) 71 119/93 (102) 04/01/17 08:00 36.9 66 16 123/72 (89) 95 04/01/17 08:00 Room Air 04/01/17 04:00 Room Air 04/01/17 03:37 36.4 59 18 123/67 (85) 99 Room Air 04/01/17 00:10 Room Air 03/31/17 23:00 36.7 64 20 149/80 (103) 97 Room Air 03/31/17 21:28 68 106/71 (83) 03/31/17 21:26 74 122/77 (92) 03/31/17 21:24 68 129/80 (96) 03/31/17 20:00 95 Room Air 03/31/17 19:05 36.4 68 18 120/74 (89) 97 Room Air 03/31/17 16:00 96 Room Air 03/31/17 15:08 36.9 83 16 107/65 (79) 94 Room Air 03/31/17 14:16 63 93 03/31/17 13:57 67 114/75 (88) 72 120/75 (90) 72 125/64 (84) Physical Exam General Appearance: no apparent distress Eyes: normal inspection, PERRL, EOMI ENT: hearing grossly normal, pharynx normal Neck: supple, no adenopathy, no JVD Respiratory/Chest: lungs clear, normal breath sounds Cardiovascular: regular rate, rhythm, no edema, no gallop, no murmur Abdomen: normal bowel sounds, non tender, soft, no organomegaly Extremities: normal range of motion, no pedal edema, no calf tenderness Neurologic/Psychiatric: medical insurance verifier II-XII nml as tested, no motor/sensory deficits, alert, normal mood/affect Skin: normal color, warm/dry, no rash Lymphatic: no adenopathy Laboratory Results Last 24 Hours Test 04/01/17 06:24 Prothrombin Time 24.9 SECONDS Prothromb Time International Ratio 2.4 Sodium Level 136 mmol/L Potassium Level 3.9 mmol/L Chloride Level 103 mmol/L Carbon Dioxide Level 28 mmol/L Anion Gap 6.0 mmol/L Blood Urea Nitrogen 19 mg/dl Creatinine 1.08 mg/dl Est Creatinine Clear Calc Drug Dose 26.1 ml/min Estimated GFR () 53.8 Estimated GFR (Non- 46.4 BUN/Creatinine Ratio 17.9 Random Glucose 89 mg/dl Calcium Level 8.7 mg/dl Magnesium Level 2.5 mg/dl Assessment and Plan Impression: 1. Vasovagal syncope 2. Appropriately functioning pacemaker 3. History of paroxysmal atrial fibrillation and tachybradycardia syndrome Recommendations: The patient is very anxious to return home. She wants to be discharged and I believe she may be discharged to outpatient follow-up. We already have an appointment for her to be seen next week at our clinic and we will follow up on any further symptoms or problems at that time.
--- NOTE | 2017-04-01 14:18 | Progress Note ---
Medicine Progress Note Date & Time of Visit: Apr 01, 2017 at 14:12. Subjective Pt was seen and examined Lying in bed comfortable with no distress Pt said that she feels fine She said that she urinates fine now with no problem She denies any further episodes of syncope She walks fine with PT with no issues Physical therapy recommended inpatient rehab Pt and daughter refused inpatient rehab Pt is very anxious to go home today Denies any chest pain, palpitation, dizziness and SOB Objective Last 8 Hrs Date Time Temp Pulse Resp B/P (MAP) Pulse Ox O2 Delivery O2 Flow Rate FiO2 04/01/17 12:00 Room Air 04/01/17 11:44 36.9 74 18 133/62 (85) 96 04/01/17 09:20 36.8 70 18 121/68 (85) 99 71 113/69 (84) 71 119/93 (102) 04/01/17 08:00 36.9 66 16 123/72 (89) 95 04/01/17 08:00 Room Air Physical Exam: General- No acute distress Head- atraumatic Eyes- PERRL, EOMI ENT- oropharynx clear Neck- supple, no JVD Lungs- No wheezing Heart- regular rhythm Abdomen- normal bowel sounds, soft Extremities- no calf tenderness Neuro- alert, oriented x 3; PERRL, EOMI Skin- warm & dry Laboratory Results: Last 24 Hours Test 04/01/17 06:24 Prothrombin Time 24.9 SECONDS Prothromb Time International Ratio 2.4 Sodium Level 136 mmol/L Potassium Level 3.9 mmol/L Chloride Level 103 mmol/L Carbon Dioxide Level 28 mmol/L Anion Gap 6.0 mmol/L Blood Urea Nitrogen 19 mg/dl Creatinine 1.08 mg/dl Est Creatinine Clear Calc Drug Dose 26.1 ml/min Estimated GFR () 53.8 Estimated GFR (Non- 46.4 BUN/Creatinine Ratio 17.9 Random Glucose 89 mg/dl Calcium Level 8.7 mg/dl Magnesium Level 2.5 mg/dl Assessment & Plan 87 year old female with history of TBS s/p Pacemaker, A fib on Coumadin, HTN, CKD 3, presenting with syncope. Recurrent Syncope Mostly vasovagal CT head showed no acute findings Carotid u/s showed no significant stenosis MRI showed no acute intracranial findings. Pacemaker was interrogated and working fine MRA head and neck pending Pt seems to have prior syncope when lab drawn MRA neck showed No significant stenosis, occlusion, or dissection identified within the carotid or vertebral arteries MRA head unremarkable MRA of the intracranial circulation. Neuro recommended vestibular rehab if symptoms continue No more episodes of syncope BP check with no orthostatic Ambulating with PT with no episode of dizziness/syncope PT recommended inpatient rehab, but pt and daughter refused Fall precaution Continue home health services with PT ECHO SHOWED * The left ventricle is normal in size. * Left ventricular systolic function is normal. * Ejection Fraction = 55-60%. * The right ventricular systolic function is normal. * Grade I diastolic dysfunction, (abnormal relaxation pattern). * The left atrium is moderately dilated. * The right atrium is moderately dilated. * There is mild mitral regurgitation. * There is moderate tricuspid regurgitation. Urinary retention Has been straight cath If no void, will consult urology continue monitor and straight cath if bladder u/s greater than 500ml Resolved Tachy-enid syndrome status post cardiac pacemaker. Pacemaker was interrogated and has been working fine Follow up with cardiology on 04/06 @ 8:45 AM with Jaye MARTINEZ Paroxysmal atrial fibrillation. Rated control On Sinus rhythm Continue Metoprolol Cardiology on board INR 2.4 continue Coumadin Follow up with coag clinic Acute kidney injury with chronic kidney disease. Resolved Continue monitor BMP Hypertension. BP stable Metoprolol Hypothyroidism. Continue with levothyroxine replacement. Deep venous thrombosis prophylaxis. INR 2.5 On Coumadin CODE STATUS FULL CODE DISPOSITION Will discharge home today Consultants: Cardio Neuro Current Inpatient Medications: Current Inpatient Medications Medications (Trade) Dose Ordered Sig/Astrid Route Start Time Stop Time Status Last Admin Dose Admin Acetaminophen (Tylenol Tab) 650 mg Q4H PRN PO 03/27/17 20:45 04/26/17 20:44 03/31/17 04:28 650 MG Ondansetron HCl (Zofran Inj) 4 mg Q6H PRN IV 03/27/17 20:45 04/26/17 20:44 Ammonium Lactate (Lac-Hydrin) 1 appl PRN PRN EXT 03/27/17 20:45 04/26/17 20:44 Levothyroxine Sodium (Synthroid Tab) 50 mcg DAILYBB PO 03/28/17 06:00 04/27/17 05:59 04/01/17 05:51 50 MCG Meclizine HCl (Antivert Tab) 12.5 mg Q6H PRN PO 03/27/17 20:45 04/26/17 20:44 03/29/17 12:56 12.5 MG Metoprolol Tartrate (Lopressor Tab) 25 mg BID PO 03/27/17 21:00 04/26/17 20:59 04/01/17 07:49 25 MG Nitroglycerin (Nitrostat Tab) 0.4 mg PRN UT 03/27/17 20:45 04/26/17 20:44 Ropinirole HCl (Requip Tab) 0.5 mg QAM PO 03/28/17 09:00 04/27/17 08:59 04/01/17 07:49 0.5 MG Rosuvastatin Calcium (Crestor Tab) 10 mg DAILY PO 03/28/17 09:00 04/27/17 08:59 04/01/17 07:49 10 MG Citalopram Hydrobromide (celeXA TAB) 10 mg HS PO 03/27/17 22:30 04/26/17 22:29 03/31/17 21:00 10 MG Miscellaneous Information (Order Awaiting Action) 1 ea QS N/A 03/28/17 00:00 04/27/17 00:00 Miscellaneous Information (Order Awaiting Action) 1 ea QS N/A 03/28/17 00:00 04/27/17 00:00 Ropinirole HCl (Requip Tab) 1 mg BID@1645,2100 PO 03/28/17 16:45 04/27/17 16:44 03/31/17 21:59 1 MG Ropinirole HCl (Requip Tab) 0.5 mg DAILY PRN PO 03/28/17 08:15 04/27/17 08:14 Warfarin Sodium (Coumadin Tab) 2 mg DAILY@16 PO 03/29/17 16:00 04/28/17 15:59 03/31/17 15:32 2 MG Gadobutrol (Gadavist) 6 mmol UD PRN IV 03/30/17 13:00 04/03/17 12:59
--- NOTE | 2017-04-01 14:32 | Discharge Instructions ---
Discharge Instructions Date of Service Apr 01, 2017. Admission Reason for Admission: A Fib,Ckd,Syncope And Collapse Discharge Discharge Diagnosis / Problem: Recurrent Syncope, Urinary retention, Afib Discharge Goals Goal(s): Decrease discomfort, Improve function, Increase independence, Improve disease control Activity Recommendations Activity Limitations: resume your previous activity (as tolerated) . Instructions / Follow-Up Instructions / Follow-Up Discharge home with home health services Follow up with your primary care provider Dr. Vogel on 04/06 @ 10 AM [facility] Follow up with cardiology Jaye MARTINEZ on 04/06 @ 8:45 AM ([facility]) Continue Physical therapy and Occupational therapy Fall precaution Follow up with the Coumadin clinic (INR 2.4 today) Current Hospital Diet Patient's current hospital diet: AHA Diet (Heart Healthy) Discharge Diet Recommended Diet: AHA Diet (Heart Healthy) Pending Studies Studies pending at discharge: no Medical Emergencies . Who to Call and When: Medical Emergencies: If at any time you feel your situation is an emergency, please call 911 immediately. . Non-Emergent Contact Non-Emergency issues call your: Primary Care Provider Call Non-Emergent contact if: you have any medication questions . . "Provider Documentation" section prepared by Jamila Turcios. . VTE Core Measure Inpt VTE Proph given/why not?: Warfarin (Coumadin)
--- NOTE | 2017-04-01 14:39 | Discharge Summary ---
Discharge Summary Date of Service Apr 01, 2017. Discharge Summary Admission Date: Mar 27, 2017 at 20:40 Discharge Date: Apr 01, 2017 Discharge Disposition: Home with services Principal Diagnosis: Recurrent Syncope Secondary Diagnoses/Problems: Urinary retention Paroxysmal Afib Tachy-enid syndrome Acute kidney injury with chronic kidney disease. Hypothyroidism HTN Procedures: [~ rep ct add3]] MRI OF THE BRAIN WITHOUT CONTRAST CLINICAL HISTORY: Syncopal episodes. Possible stroke. COMPARISON STUDY: Noncontrast head CT dated 03/27/2017, MRI the brain dated 09/13/2012 FINDINGS: Sagittal T1, axial diffusion, proton density and T2 weighted axial, coronal FLAIR, and axial T1-weighted images were acquired. No intra or extra-axial mass lesions are visualized Axial diffusion-weighted images reveal no evidence of acute or subacute infarction. There is no evidence of ventricular dilatation. Proton density T2-weighted and FLAIR images reveal slightly progressive moderately extensive foci of increased T2 signal within the white matter, likely on a small vessel basis. There are no abnormal flow voids. IMPRESSION: No acute intracranial findings. Electronically signed by: Brain Crocker M.D. 03/29/2017 4:30 PM Dictated Date/Time: 03/29/2017 4:27 PM [~ rep ct add3]] MRA OF THE INTRACRANIAL CIRCULATION WITHOUT CONTRAST CLINICAL HISTORY: Decrease blood pressure with standing. Syncope. COMPARISON STUDY: None. TECHNIQUE: Utilizing a 1.5 Maritza magnet and 3-D [id number] technique, unenhanced MRA of the intracranial circulation was obtained. FINDINGS: The bilateral M1, M2, A1 and A2 segments are patent. Posterior circulation appears intact. There is no intracranial aneurysm. There is persistence of the right posterior cerebral artery. No high-grade stenoses are identified within the major intracranial vessels. IMPRESSION: Unremarkable MRA of the intracranial circulation. Electronically signed by: Erick Singh M.D. 03/30/2017 1:00 PM Dictated Date/Time: 03/30/2017 12:57 PM NECK MRA HISTORY: Syncope. Systolic hypertension upon standing. TECHNIQUE: [id number] and gadolinium-enhanced MRA of the neck was performed both before and after the intravenous administration of contrast. All measurements were calculated based on NASCET criteria. The patient was administered 6 cc of intravenous Gadavist. COMPARISON STUDY: Carotid Doppler ultrasound dated 03/28/2017 FINDINGS: The aortic arch and proximal great vessels are widely patent. There is no significant stenosis, occlusion, or dissection identified within the bilateral common carotid, internal carotid, or vertebral arteries. Atheromatous plaque is visualized most pronounced at the level of the left carotid bulb IMPRESSION: No significant stenosis, occlusion, or dissection identified within the carotid or vertebral arteries. Electronically signed by: Brain Crocker M.D. 03/30/2017 1:08 PM Dictated Date/Time: 03/30/2017 12:58 PM [~ rep ct add3]] CAROTID ARTERY ULTRASOUND CLINICAL HISTORY: Syncope. Evaluate for stenosis. COMPARISON STUDY: Carotid ultrasound May 30, 2013. TECHNIQUE: Real-time, grayscale, and color Doppler sonography of the carotid and vertebral arteries was performed. Images were viewed in the transverse and longitudinal planes. FINDINGS: There is mild to moderate atherosclerotic plaque. Velocity measurements are listed below. COMMON CAROTID PEAK SYSTOLIC VELOCITY (CM/S): RIGHT 96 LEFT 88 ICA PEAK SYSTOLIC VELOCITY (CM/S): RIGHT 82 LEFT 82 The systolic ratios between the internal to common carotid arteries were normal. Antegrade flow is seen in the vertebral arteries. The external carotid arteries are patent. Blood pressure in the right arm measured 126/68. Blood pressure in the left arm measured 122/66. IMPRESSION: Technically difficult study given high bifurcations but no convincing evidence for a hemodynamically significant stenosis. Electronically signed by: Erick Singh M.D. 03/28/2017 8:18 AM Dictated Date/Time: 03/28/2017 8:[address]AST CT DOSE: 655.73 mGy.cm HISTORY: Syncope. TECHNIQUE: Multiaxial CT images of the head were performed without the use of intravenous contrast. Automated exposure control was utilized for this study. A dose lowering technique was utilized adhering to the principles of ALARA. Comparison: Head CT 11/18/1716. Findings: The paranasal sinuses and mastoid air cells are clear. The calvarium and skull base are intact. There is no mass, hematoma, midline shift, acute infarct. White matter hypodensity is nonspecific but suggestive of microvascular ischemic change. The ventricles and sulci demonstrate mild age-related involutional changes. Impression: No significant change compared to the prior study. No acute intracranial abnormality. Electronically signed by: Benson Self M.D. 03/27/2017 9:34 PM Dictated Date/Time: 03/27/2017 9:32 PM [~ rep ct add3]] CHEST ONE VIEW PORTABLE HISTORY: Syncope. Evaluate for pneumonia. COMPARISON: Chest 12/10/2015. FINDINGS: The cardiac silhouette is mildly enlarged. The lungs are clear. No pleural effusions. No pneumothorax. Left-sided dual-chamber pacemaker. IMPRESSION: Mild cardiomegaly. Electronically signed by: Benson Self M.D. 03/27/2017 7:42 PM Dictated Date/Time: 03/27/2017 7:41 PM Consultations: Cardio Neuro Medication Reconciliation Continued Medications: Acetaminophen Tab (Tylenol) 325 Mg Tab 650 MG PO Q6H PRN for Pain, TAB Citalopram Hydrobromide (Citalopram Hydrobromide) 10 Mg Tab 10 MG PO DAILY, TAB Clobetasol Propionate (Temovate) 0.05 % Cre 1 APPLN TOP BID PRN for Rash,Itching and Flares, GM Doxycycline Hyclate (Doxycycline Hyclate) 50 Mg Cap 50 MG PO DAILY Lactic Acid (Ammonium Lactate) (Ammonium Lactate) 12 % Lot 1 APPLN TOP BID PRN for Affected Area(s) Levocetirizine Dihydrochloride (Levocetirizine Dihydrochl) 5 Mg Tab 5 MG PO DAILY, TAB Levothyroxine Sodium (Synthroid) 50 Mcg Tab 50 MCG PO QAM, TAB TAKE THIS MEDICATION 30 MINUTES BEFORE BREAKFAST OR ANY OTHER MEDICATIONS Loperamide Hcl (Imodium) 2 Mg Cap 2 MG PO UD PRN for Diarrhea, CAP TAKE ONE CAPSULE AFTER EACH LOOSE BOWEL MOVEMENT. DO NOT EXCEED MORE THAN 8 CAPSULES DAILY. Meclizine HCl (Meclizine HCl) 25 Mg Tab 12.5 MG PO UD PRN for Dizziness or Vertigo TAKE NEEDED FOR DIZZINESS/VERTIGO Metoprolol Tartrate (Lopressor) (Lopressor) 50 Mg Tab 25 MG PO BID Metronidazole (Topical) (Metrocream) 0.75 % Cre 1 APPLN TOP DAILY PRN for UNDECIDED, GM APPLY TO FACE DIRECTED Nitroglycerin (Nitrostat) 0.4 Mg Tab 0.4 MG UT UD PRN for Chest Pain, BTL PLACE ONE TABLET UNDER THE TONGUE Ondansetron (Ondansetron HCl) 8 Mg Tab 8 MG PO Q8H PRN for Nausea Ropinirole (Requip) 0.5 Mg Tab 0.5 MG PO QAM, TAB TAKE ONE TABLET EVERY MORNING AND AN ADDITONAL TABLET DURING THE DAY IF NEEDED Ropinirole (Requip) 1 Mg Tab 1 MG PO BID, TAB TAKE THIS MEDICATION WITH EVENING MEAL AND AT BEDTIME Rosuvastatin Calcium (Crestor) 10 Mg Tab 10 MG PO DAILY, TAB Warfarin Sodium (Warfarin Sodium) 1 Mg Tab 2 MG PO DAILY Discontinued Medications: Warfarin Sod (Jantoven) 1 Mg Tab 1 MG PO 3XWK TAKE 1 MG EVERY WEDNESDAY,WEDNESDAY AND WEDNESDAY OR OTHERWISE DIRECETED TO TAKE BY ANTICOAGULATION CLINIC/MD Admission Information HPI (per Admitting provider): CHIEF COMPLAINT: Episodes of syncope since this evening. HISTORY OF PRESENT COMPLAINT: She is an 87 years old female with significant past medical history including tachy-enid syndrome status post cardiac pacemaker, atrial fibrillation on Coumadin, chronic kidney disease stage III, hypertension, generalized anxiety disorder, restless leg syndrome, hyperlipidemia and also hypothyroidism. Apparently, she was in Spaghetti Dinner , following the dinner she was sitting on a chair for about 10-15 minutes. When she stood up and wanted to go with her family members, she just dropped on the floor. She did not hit herself, but she lost consciousness according to the family members, do not know how long but she looked pale. She was not feeling any significant symptoms but told me that she was not being herself. This seemed to happen quite a few times following that whenever she wanted to move around. Even the syncope happened to be while here she was in the ambulance, she only complained to have palpitation but specifically she did not have any chest pain, any nausea, vomiting, any abdominal pain, any headaches, any numbness or tingling in the extremities, any problem with speech and/or any weakness involving any side of the body. When asking questions, she mentions to have some shortness of breath but no sweating associated with it. In the Emergency Room, she was hemodynamically stable and her blood counts came out to be unremarkable except acute on chronic kidney impairment and her pacemaker interrogation came out to be negative, but given the history of recurrent syncope even at rest and on lying down with palpitations, she was admitted to medical floor for continuation of care. Physical Exam (per Admitting): GENERAL: On examination in the Emergency Room, she was not having any acute distress, but she was not feeling in herself. VITAL SIGNS: Temperature 37.0, pulse was 68 and there is no significant postural change, blood pressure 149/91 and there is no significant postural change, saturation 95% on room air. Her blood pressure noted to be very high in the ambulance, but do not know the number exactly. HEENT: Unremarkable. NECK: Supple. No JVD, no bruit. CHEST: Clear to auscultation bilaterally. HEART: S1, S2 regular with a 2/6 systolic murmur. ABDOMEN: Soft, benign, nontender, no organomegaly. Bowel sounds present. EXTREMITIES: Negative for any edema. MUSCULOSKELETAL: Did not show any acute arthritis involving any joint. CENTRAL NERVOUS SYSTEM: She was alert, awake, oriented x3. No focal sensory and/or motor deficit appreciated. Hospital Course 87 year old female with history of TBS s/p Pacemaker, A fib on Coumadin, HTN, CKD 3, presenting with syncope. Recurrent Syncope Possible vasovagal CT head showed no acute findings Carotid u/s showed no significant stenosis MRI showed no acute intracranial findings. Pacemaker was interrogated and working fine MRA head and neck pending Pt seems to have prior syncope when lab drawn MRA neck showed No significant stenosis, occlusion, or dissection identified within the carotid or vertebral arteries MRA head unremarkable MRA of the intracranial circulation. Neuro recommended vestibular rehab if symptoms continue No more episodes of syncope BP check with no orthostatic Ambulating with PT with no episode of dizziness/syncope PT recommended inpatient rehab, but pt and daughter refused Fall precaution Continue home health services with PT ECHO SHOWED * The left ventricle is normal in size. * Left ventricular systolic function is normal. * Ejection Fraction = 55-60%. * The right ventricular systolic function is normal. * Grade I diastolic dysfunction, (abnormal relaxation pattern). * The left atrium is moderately dilated. * The right atrium is moderately dilated. * There is mild mitral regurgitation. * There is moderate tricuspid regurgitation. Urinary retention Has been straight cath If no void, will consult urology continue monitor and straight cath if bladder u/s greater than 500ml Resolved Tachy-enid syndrome status post cardiac pacemaker. Pacemaker was interrogated and has been working fine Follow up with cardiology on 04/06 @ 8:45 AM with Jaye MARTINEZ Paroxysmal atrial fibrillation. Rated control On Sinus rhythm Continue Metoprolol Cardiology on board INR 2.4 continue Coumadin Follow up with coag clinic Acute kidney injury with chronic kidney disease. Resolved Continue monitor BMP Hypertension. BP stable Metoprolol Hypothyroidism. Continue with levothyroxine replacement. Deep venous thrombosis prophylaxis. INR 2.5 On Coumadin CODE STATUS FULL CODE DISPOSITION Will discharge home today Total time spent on discharge = 35 minutes This includes examination of the patient, discharge planning, medication reconciliation, and communication with other providers. Discharge Instructions Discharge Instructions Date of Service Apr 01, 2017. Admission Reason for Admission: A Fib,Ckd,Syncope And Collapse Discharge Discharge Diagnosis / Problem: Recurrent Syncope, Urinary retention, Afib Discharge Goals Goal(s): Decrease discomfort, Improve function, Increase independence, Improve disease control Activity Recommendations Activity Limitations: resume your previous activity (as tolerated) . Instructions / Follow-Up Instructions / Follow-Up Discharge home with home health services Follow up with your primary care provider Dr. Vogel on 04/06 @ 10 AM ( [facility])] Follow up with cardiology Jaye MARTINEZ on 04/06 @ 8:45 AM ([facility]) Continue Physical therapy and Occupational therapy Fall precaution Follow up with the Coumadin clinic (INR 2.4 today) Current Hospital Diet Patient's current hospital diet: AHA Diet (Heart Healthy) Discharge Diet Recommended Diet: AHA Diet (Heart Healthy) Pending Studies Studies pending at discharge: no Medical Emergencies . Who to Call and When: Medical Emergencies: If at any time you feel your situation is an emergency, please call 911 immediately. . Non-Emergent Contact Non-Emergency issues call your: Primary Care Provider Call Non-Emergent contact if: you have any medication questions . . "Provider Documentation" section prepared by Jamila Turcios. . VTE Core Measure Inpt VTE Proph given/why not?: Warfarin (Coumadin) Additional Copies To Roly Vogel M.D.
[2017-04-01 14:43] VITALS: BP 133/62; PULSE 74; TEMP 36.9; O2SAT 96
--- NOTE | 2017-04-05 16:52 | EDITING REQUIRED CODING QUERY ---
CODING QUERY To promote full compliance with coding requirements relating to patient care, provider participation is requested in all cases of microfilm mounter uncertainty. Please assist us with the question(s) below: Coding Question(s): Patient admitted with syncope . Cardiology etiologies ruled out. Please document the etiology of the syncope if known or suspected. Thank you. Luis Bhakta [facility] Physician's Response(s): Vasovagal Principal Diagnosis: "_that condition established after study, to be chiefly responsible for occasioning the admission of the patient to the hospital for care." Co-Existing Principal Diagnosis: "_when two or more diagnoses equally meet the criteria for principal diagnosis as determined by the circumstances of admission, diagnostic work up, and/or therapy provided, and the Alphabetic Index, Tabular List, or another coding guideline does not provide sequencing direction, any one of the diagnoses may be sequenced first." "When the physician has documented what appears to be a current diagnosis in the body of the record, but has not included the diagnosis in the final diagnostic statement, the physician should be asked whether the diagnosis should be added." ([facility] 2 QTR90. p3-4)
== END 2017-04-01 15:00 | disposition home health service (06) | DRG 312 ==
LOC: EDBD 18:46 → C.EDA 18:47 → C.2T 20:40 → ENRESERV 20:47
PROVIDERS: ADMIT Internal Medicine; ATTEND Internal Medicine
DX: R55 Syncope and collapse (principal); D64.9 Anemia, unspecified; N17.9 Acute kidney failure, unspecified; I48.0 Paroxysmal atrial fibrillation; N18.3 Chronic kidney disease, stage 3 (moderate); I12.9 Hypertensive chronic kidney disease with stage 1 through stage 4 chronic kidney disease, or unspecified chronic kidney disease; E78.5 Hyperlipidemia, unspecified; Z95.0 Presence of cardiac pacemaker; G25.81 Restless legs syndrome; Z79.01 Long term (current) use of anticoagulants; Z88.2 Allergy status to sulfonamides; R79.1 Abnormal coagulation profile; L20.9 Atopic dermatitis, unspecified; E86.0 Dehydration; E03.9 Hypothyroidism, unspecified; R33.9 Retention of urine, unspecified; M17.11 Unilateral primary osteoarthritis, right knee; F41.1 Generalized anxiety disorder

== ENCOUNTER 2017-06-23 17:29 | Inpatient (IN) | payer OTHER ==
[~2017-06-23] VITALS: Ht 142.2 cm; Wt 54.4 kg
[~2017-06-23 17:29] MED LIST changes: +ACET-1693 PO; -WARF1TAB6 PO
[2017-06-23] MEDS ORDERED: SODIUM CHLORIDE 0.9% 1000ML 1,000 ML IV STA (17:41)
[2017-06-23 18:09] LABS: BASO % 0.3 %; BASO ABS # 0.02 K/uL (0-0.2); EOS % 2.7 %; HEMATOCRIT 36.5 % (37-47); HEMOGLOBIN 11.6 g/dL (12.0-16.0); IG# 0.01 K/uL (0.00-0.02); LYMPH % 32.9 %; LYMPH ABS # 2.45 K/uL (1.2-3.4); MEAN CELL VOLUME 88.8 fL (80-100); MEAN CORPUSCULAR HEMOGLOBIN 28.2 pg (25-34); MEAN CORPUSCULAR HGB CONC 31.8 g/dl (32-36); MEAN PLATELET VOLUME 10.7 fL (7.4-10.4); MONO % 9.3 %; MONO ABS # 0.69 K/uL (0.11-0.59); NEUT % 54.7 %; NEUT ABS # 4.08 K/uL (1.4-6.5); PLATELET COUNT 231 K/uL (130-400); RED CELL DISTRIBUTION WIDTH CV 15.2 % (11.5-14.5); RED CELL DISTRIBUTION WIDTH SD 49.4 fL (36.4-46.3); WHITE BLOOD COUNT 7.45 K/uL (4.8-10.8)
--- NOTE | 2017-06-23 18:10 | DIAGNOSTIC IMAGING REPORT ---
CHEST ONE VIEW PORTABLE CLINICAL HISTORY: EVALUATE WEAKNESS COMPARISON STUDY: Chest radiograph March 27, 2017. FINDINGS: A dual lead left-sided pacemaker is unchanged in position. Cardiomediastinal silhouette is stable and there is no evidence for pulmonary edema. No pneumothorax or pleural effusion is noted. There is no consolidation to suggest pneumonia. IMPRESSION: No acute cardiopulmonary findings. Electronically signed by: Erick Singh M.D. 06/23/2017 6:08 PM Dictated Date/Time: 06/23/2017 6:07 PM
[2017-06-23 18:20] LABS: INR 2.2 (0.9-1.1); PTT PATIENT 35.2 SECONDS (21.0-31.0)
[2017-06-23] MEDS ORDERED: WARF1TAB6 PO (18:25)
[2017-06-23 18:28] LABS: ALBUMIN 3.6 gm/dl (3.4-5.0); ALT/SGPT 24 U/L (12-78); AST/SGOT 26 U/L (15-37); BLOOD UREA NITROGEN 21 mg/dl (7-18); CALCIUM 8.9 mg/dl (8.5-10.1); CARBON DIOXIDE 25 mmol/L (21-32); CREATININE 1.02 mg/dl (0.60-1.20); GLUCOSE 78 mg/dl (70-99); LIPASE 246 U/L (73-393); POTASSIUM 4.2 mmol/L (3.5-5.1); SODIUM 136 mmol/L (136-145)
[2017-06-23 18:39] LABS: ALKALINE PHOSPHATASE 96 U/L (45-117); TOTAL PROTEIN 7.4 gm/dl (6.4-8.2)
--- NOTE | 2017-06-23 18:47 | DIAGNOSTIC IMAGING REPORT ---
CT OF THE HEAD WITHOUT CONTRAST CLINICAL HISTORY: Syncope. Weakness. COMPARISON STUDY: Head CT March 27, 2017 and MRI of the brain March 29, 2017. CT DOSE: 679.75 mGycm TECHNIQUE: Helical axial images of the head were obtained without IV contrast. Automated exposure control was utilized for the study. A dose lowering technique was utilized adhering to the principles of ALARA. FINDINGS: No acute intracranial hemorrhage, midline shift or mass effect is present. Ventricular system is stable. Basilar cisterns are patent. There are no extra-axial collections. White matter hypodensities are unchanged and suggest small vessel disease. There are no findings to suggest acute dural sinus thrombosis or acute territorial infarct. The appearance of the brain is unchanged. There are no significant calvarial abnormalities. Visualized portions of the sinuses and mastoid air cells are clear. IMPRESSION: No acute intracranial findings. No change since previous exam. Electronically signed by: Erick Singh M.D. 06/23/2017 6:45 PM Dictated Date/Time: 06/23/2017 6:42 PM
--- NOTE | 2017-06-23 19:08 | DIAGNOSTIC IMAGING REPORT ---
CT OF THE ABDOMEN AND PELVIS WITHOUT CONTRAST CLINICAL HISTORY: Syncope with fall. Acute right lower quadrant abdominal pain. COMPARISON STUDY: CT of the abdomen and pelvis January 02, 2016. TECHNIQUE: Axial images of the abdomen and pelvis were obtained without IV contrast. Images were reviewed in the axial, sagittal, and coronal planes. A dose lowering technique was utilized adhering to the principles of ALARA. FINDINGS: Pacer leads are partially imaged. Heart is moderately enlarged. Evaluation of the abdomen and pelvis is suboptimal on this unenhanced exam. Unenhanced images of the liver, spleen, adrenal glands, kidneys and pancreas are unremarkable with exception of mild dilatation of the right collecting system which may be related to marked distention of the urinary bladder. There are no ureteral calculi. There is no left collecting system dilatation. No perinephric infiltration is present. Nodularity of the left adrenal gland is unchanged since CT of January 02, 2016. There is no peripancreatic or pericholecystic infiltration. Mild dilatation of the distal pancreatic duct and main pancreatic duct is unchanged since exam of January 02, 2016. There is no evidence for a bowel obstruction. The appendix is not visualized but there is no right lower quadrant inflammation. Note is made of left colon diverticulosis. There is mild wall thickening and mild pericolonic infiltration at the junction of the descending colon and sigmoid colon. There is no free air or abscess. Note is made of a pocket of gas which appears to be adjacent to the wall of the colon shown best on axial image 234 of 411. No acute pelvic or lumbar spine fracture is identified. Extensive atherosclerotic plaque of the abdominal aorta is present. The caliber of this vessel is normal. There is no abdominal or pelvic lymphadenopathy. IMPRESSION: 1. Mild wall thickening and pericolonic infiltration at the junction of the descending colon and sigmoid colon. No abscess or free air. This favors diverticulitis although a nonspecific colitis could appear similar. Similar but more severe findings were shown on multiple previous studies at this site. Pocket of gas which appears to be adjacent to the wall of the colon does not reflect free air. It's unclear whether this represents a diverticulum or contained extraluminal gas. Follow-up colonoscopy once symptoms resolve might be considered to exclude an underlying lesion although no mass identified on this study. 2. No acute traumatic findings within the abdomen or pelvis on unenhanced exam. 3. Marked distention of the bladder. Electronically signed by: Erick Singh M.D. 06/23/2017 7:07 PM Dictated Date/Time: 06/23/2017 6:52 PM
[2017-06-23] MEDS ORDERED: PIPERACILLIN/TAZOBACTAM 4.5 GM/100ML D5W IV STA (19:31)
[2017-06-23] MEDS ORDERED: ONDANSETRON INJ 2 MG/ML 2 ML VIAL IV PRN (20:45)
[2017-06-23] MEDS ORDERED: MECLIZINE HCL 25 MG TAB PO PRN (20:45)
[2017-06-23] MEDS ORDERED: NITROGLYCERIN 0.4 MG SL PER TAB CHARGE SL PRN (20:45)
[2017-06-23] MEDS ORDERED: ACETAMINOPHEN 325 MG TAB PO PRN (20:45)
[2017-06-23] MEDS ORDERED: ALUMINUM/MAGNESIUM/SIMETH (MAALOX MAX) 30 ML UDC PO PRN (20:45)
[2017-06-23] MEDS ORDERED: AMMONIUM LACTATE 12% LOTION 225 GM BTL EXT PRN (20:45)
[2017-06-23] MEDS ORDERED: POLYETHYLENE (MIRALAX) 17 GM PACK PO PRN (20:45)
[2017-06-23] MEDS ORDERED: ONDANSETRON 8 MG TAB PO PRN (20:45)
[2017-06-23] MEDS ORDERED: LOPERAMIDE HCL 2 MG CAP PO PRN (20:45)
[2017-06-23] MEDS ORDERED: PIPERACILL/TAZOBAC CONSULT ACTIVE PRN (20:45)
[2017-06-23] MEDS ORDERED: CLOBETASOL PROPIONATE 0.05% OINT 15 GM TUBE EXT PRN (20:45)
--- NOTE | 2017-06-23 23:07 | EMERGENCY ROOM VISIT NOTE ---
History Report prepared by Dean: Mahogany Cheung Under the Supervision of: Dr. Anton Downs M.D. First contact with patient: 17:34 Chief Complaint: OTHER COMPLAINT Stated Complaint: HEAD INJURY, SYNCOPE X 2, AB PAIN History of Present Illness The patient is a 87 year old female who presents to the Emergency Room with complaints of persistent abdominal pain for 2 hours. She states that she was placing her hand in her refrigerator when she felt lightheaded and smacked her head on the fridge. She sat down and then passed out. She reports head pain. She states that she woke up with abdominal pain. She has a history of previous syncope episodes. She reports abdominal pain and rates it an 8/10 in severity. She has a history of total knee replacement. Pt denies fevers, chills, diaphoresis, visual changes, neck pain, chest pain, breathing difficulties, nausea, vomiting, back pain, melena, hematochezia, urinary symptoms, numbness, weakness, lymphadenopathy, rash, or other complaints. Source of History: patient Onset: two hours Position: abdomen Symptom Intensity: 8/10 Timing: other (persistent) Associated Symptoms: + LOC, + headache Note: Notes head wound. Review of Systems See HPI for pertinent positives and negatives. A total of ten systems were reviewed and were otherwise negative. Past Medical & Surgical Medical Problems: (1) Atrial fibrillation (2) CKD (chronic kidney disease) (3) CKD (chronic kidney disease), stage III (4) Dyslipidemia (5) HTN (hypertension) (6) Pacemaker (7) RLS (restless legs syndrome) (8) Rosacea (9) SVT (supraventricular tachycardia) (10) Syncope and collapse (11) Tachy-enid syndrome Surgical Problems: (1) History of carpal tunnel surgery (2) History of cataract surgery (3) History of hysterectomy (4) Post-operative state Family History Diabetes mellitus Heart disease Hypertension Social History Smoking Status: Never Smoker Alcohol Use: none Drug Use: none Housing Status: lives with family Occupation Status: retired Current/Historical Medications Scheduled Citalopram Hydrobromide (Citalopram Hydrobromide), 10 MG PO QAM Doxycycline Hyclate (Doxycycline Hyclate), 50 MG PO QAM Levothyroxine Sodium (Synthroid), 50 MCG PO QAM Metoprolol Tartrate (Lopressor) (Lopressor), 25 MG PO BID Ropinirole (Requip), 0.5 MG PO QAM Ropinirole (Requip), 1 MG PO BID Rosuvastatin Calcium (Crestor), 10 MG PO PM Warfarin Sod (Jantoven), 1 MG PO WED Warfarin Sodium (Warfarin Sodium), 2 MG PO PM Scheduled PRN Acetaminophen Tab (Tylenol), 650 MG PO Q6H PRN for Pain Clobetasol Propionate (Temovate), 1 APPLN TOP BID PRN for Rash,Itching and Flares Lactic Acid (Ammonium Lactate) (Ammonium Lactate), 1 APPLN TOP BID PRN for Affected Area(s) Levocetirizine Dihydrochloride (Levocetirizine Dihydrochl), 5 MG PO DAILY PRN for Allergic Reaction Loperamide Hcl (Imodium), 2 MG PO UD PRN for Diarrhea Meclizine HCl (Meclizine HCl), 12.5 MG PO UD PRN for Dizziness or Vertigo Metronidazole (Topical) (Metrocream), 1 APPLN TOP DAILY PRN for UNDECIDED Nitroglycerin (Nitrostat), 0.4 MG UT UD PRN for Chest Pain Ondansetron (Ondansetron HCl), 8 MG PO Q8H PRN for Nausea Allergies Coded Allergies: Adhesives (Verified Allergy, Unknown, ADHESIVE TAPE, 12/31/15) Conjugated Estrogens (Verified Allergy, Unknown, SEVERE RASH, PAINFUL FROM VAGINAL CREAM, 12/31/15) Sulfa Antibiotics (Verified Allergy, Unknown, HIVES, RASH, 12/31/15) Tetanus Toxoid (Verified Allergy, Unknown, UNKNOWN, 12/31/15) Physical Exam Vital Signs Date Time Temp Pulse Resp B/P (MAP) Pulse Ox O2 Delivery O2 Flow Rate FiO2 06/23/17 19:53 68 18 169/78 100 Room Air 06/23/17 18:30 66 18 171/80 96 Room Air 06/23/17 17:51 68 06/23/17 17:49 100 Room Air 06/23/17 17:40 37.2 73 18 183/107 100 Room Air Physical Exam GENERAL: Awake, alert, uncomfortable-appearing, in no distress HENT: Normocephalic, atraumatic. Oropharynx unremarkable. Contusion to forehead. EYES: Normal conjunctiva. Sclera non-icteric. NECK: Supple. No nuchal rigidity. FROM. No masses. RESPIRATORY: Clear to auscultation. No wheezes. No rales. Normal respiratory effort. CARDIAC: Normal rate. Normal rhythm. No murmurs. No rubs. Extremities warm and well perfused. Pulses equal. No JVD. GI: Soft, mildly distended. RLQ tenderness to percussion and mild guarding. Some rebound. No masses. RECTAL: Deferred. MUSCULOSKELETAL: Atraumatic. Chest examination reveals no tenderness. The back is symmetrical on inspection without obvious abnormality. There is no CVA tenderness to palpation. No joint edema. UE and LE are atraumatic LOWER EXTREMITIES: Calves are equal size bilaterally and non-tender. No edema. No discoloration. NEURO: Normal sensorium. No sensory or motor deficits noted. SKIN: No rash or jaundice noted. Medical Decision & Procedures ER Provider Diagnostic Interpretation: Radiology results as stated below per my review and radiologist interpretation: CHEST ONE VIEW PORTABLE CLINICAL HISTORY: EVALUATE WEAKNESS COMPARISON STUDY: Chest radiograph March 27, 2017. FINDINGS: A dual lead left-sided pacemaker is unchanged in position. Cardiomediastinal silhouette is stable and there is no evidence for pulmonary edema. No pneumothorax or pleural effusion is noted. There is no consolidation to suggest pneumonia. IMPRESSION: No acute cardiopulmonary findings. Electronically signed by: Erick Singh M.D. 06/23/2017 6:08 PM Dictated Date/Time: 06/23/2017 6:[address] OF THE HEAD WITHOUT CONTRAST CLINICAL HISTORY: Syncope. Weakness. COMPARISON STUDY: Head CT March 27, 2017 and MRI of the brain March 29, 2017. CT DOSE: 679.75 mGycm TECHNIQUE: Helical axial images of the head were obtained without IV contrast. Automated exposure control was utilized for the study. A dose lowering technique was utilized adhering to the principles of ALARA. FINDINGS: No acute intracranial hemorrhage, midline shift or mass effect is present. Ventricular system is stable. Basilar cisterns are patent. There are no extra-axial collections. White matter hypodensities are unchanged and suggest small vessel disease. There are no findings to suggest acute dural sinus thrombosis or acute territorial infarct. The appearance of the brain is unchanged. There are no significant calvarial abnormalities. Visualized portions of the sinuses and mastoid air cells are clear. IMPRESSION: No acute intracranial findings. No change since previous exam. Electronically signed by: Erick Singh M.D. 06/23/2017 6:45 PM Dictated Date/Time: 06/23/2017 6:[address] OF THE ABDOMEN AND PELVIS WITHOUT CONTRAST CLINICAL HISTORY: Syncope with fall. Acute right lower quadrant abdominal pain. COMPARISON STUDY: CT of the abdomen and pelvis January 02, 2016. TECHNIQUE: Axial images of the abdomen and pelvis were obtained without IV contrast. Images were reviewed in the axial, sagittal, and coronal planes. A dose lowering technique was utilized adhering to the principles of ALARA. FINDINGS: Pacer leads are partially imaged. Heart is moderately enlarged. Evaluation of the abdomen and pelvis is suboptimal on this unenhanced exam. Unenhanced images of the liver, spleen, adrenal glands, kidneys and pancreas are unremarkable with exception of mild dilatation of the right collecting system which may be related to marked distention of the urinary bladder. There are no ureteral calculi. There is no left collecting system dilatation. No perinephric infiltration is present. Nodularity of the left adrenal gland is unchanged since CT of January 02, 2016. There is no peripancreatic or pericholecystic infiltration. Mild dilatation of the distal pancreatic duct and main pancreatic duct is unchanged since exam of January 02, 2016. There is no evidence for a bowel obstruction. The appendix is not visualized but there is no right lower quadrant inflammation. Note is made of left colon diverticulosis. There is mild wall thickening and mild pericolonic infiltration at the junction of the descending colon and sigmoid colon. There is no free air or abscess. Note is made of a pocket of gas which appears to be adjacent to the wall of the colon shown best on axial image 234 of 411. No acute pelvic or lumbar spine fracture is identified. Extensive atherosclerotic plaque of the abdominal aorta is present. The caliber of this vessel is normal. There is no abdominal or pelvic lymphadenopathy. IMPRESSION: 1. Mild wall thickening and pericolonic infiltration at the junction of the descending colon and sigmoid colon. No abscess or free air. This favors diverticulitis although a nonspecific colitis could appear similar. Similar but more severe findings were shown on multiple previous studies at this site. Pocket of gas which appears to be adjacent to the wall of the colon does not reflect free air. It's unclear whether this represents a diverticulum or contained extraluminal gas. Follow-up colonoscopy once symptoms resolve might be considered to exclude an underlying lesion although no mass identified on this study. 2. No acute traumatic findings within the abdomen or pelvis on unenhanced exam. 3. Marked distention of the bladder. Electronically signed by: Erick Singh M.D. 06/23/2017 7:07 PM Dictated Date/Time: 06/23/2017 6:52 PM Laboratory Results 06/23/17 17:40 Red Blood Count 4.11, Mean Corpuscular Volume 88.8, Mean Corpuscular Hemoglobin 28.2, Mean Corpuscular Hemoglobin Concent 31.8, Mean Platelet Volume 10.7, Neutrophils (%) (Auto) 54.7, Lymphocytes (%) (Auto) 32.9, Monocytes (%) (Auto) 9.3, Eosinophils (%) (Auto) 2.7, Basophils (%) (Auto) 0.3, Neutrophils # (Auto) 4.08, Lymphocytes # (Auto) 2.45, Monocytes # (Auto) 0.69, Eosinophils # (Auto) 0.20, Basophils # (Auto) 0.02 06/23/17 17:40 Test 06/23/17 17:40 06/23/17 19:02 White Blood Count 7.45 K/uL (4.8-10.8) Red Blood Count 4.11 M/uL (4.2-5.4) Hemoglobin 11.6 g/dL (12.0-16.0) Hematocrit 36.5 % (37-47) Mean Corpuscular Volume 88.8 fL (80-100) Mean Corpuscular Hemoglobin 28.2 pg (25-34) Mean Corpuscular Hemoglobin Concent 31.8 g/dl (32-36) Platelet Count 231 K/uL (130-400) Mean Platelet Volume 10.7 fL (7.4-10.4) Neutrophils (%) (Auto) 54.7 % Lymphocytes (%) (Auto) 32.9 % Monocytes (%) (Auto) 9.3 % Eosinophils (%) (Auto) 2.7 % Basophils (%) (Auto) 0.3 % Neutrophils # (Auto) 4.08 K/uL (1.4-6.5) Lymphocytes # (Auto) 2.45 K/uL (1.2-3.4) Monocytes # (Auto) 0.69 K/uL (0.11-0.59) Eosinophils # (Auto) 0.20 K/uL (0-0.5) Basophils # (Auto) 0.02 K/uL (0-0.2) RDW Standard Deviation 49.4 fL (36.4-46.3) RDW Coefficient of Variation 15.2 % (11.5-14.5) Immature Granulocyte % (Auto) 0.1 % Immature Granulocyte # (Auto) 0.01 K/uL (0.00-0.02) Prothrombin Time 23.1 SECONDS (9.0-12.0) Prothromb Time International Ratio 2.2 (0.9-1.1) Activated Partial Thromboplast Time 35.2 SECONDS (21.0-31.0) Partial Thromboplastin Ratio 1.4 Anion Gap 5.0 mmol/L (3-11) Est Creatinine Clear Calc Drug Dose 33.9 ml/min Estimated GFR () 57.7 Estimated GFR (Non- 49.8 BUN/Creatinine Ratio 20.4 (10-20) Calcium Level 8.9 mg/dl (8.5-10.1) Magnesium Level 2.6 mg/dl (1.8-2.4) Total Bilirubin 0.5 mg/dl (0.2-1) Direct Bilirubin 0.1 mg/dl (0-0.2) Aspartate Amino Transf (AST/SGOT) 26 U/L (15-37) Alanine Aminotransferase (ALT/SGPT) 24 U/L (12-78) Alkaline Phosphatase 96 U/L (45-117) Troponin I < 0.015 ng/ml (0-0.045) Total Protein 7.4 gm/dl (6.4-8.2) Albumin 3.6 gm/dl (3.4-5.0) Lipase 246 U/L (73-393) Thyroid Stimulating Hormone (TSH) 0.230 uIu/ml (0.300-4.500) Urine Color YELLOW Urine Appearance CLEAR (CLEAR) Urine pH 6.5 (4.5-7.5) Urine Specific [place] 1.013 (1.000-1.030) Urine Protein NEG (NEG) Urine Glucose (UA) NEG (NEG) Urine Ketones NEG (NEG) Urine Occult Blood NEG (NEG) Urine Nitrite NEG (NEG) Urine Bilirubin NEG (NEG) Urine Urobilinogen NEG (NEG) Urine Leukocyte Esterase MODERATE (NEG) Urine WBC (Auto) 10-30 /hpf (0-5) Urine RBC (Auto) 0-4 /hpf (0-4) Urine Hyaline Casts (Auto) 0 /lpf (0-5) Urine Epithelial Cells (Auto) 10-20 /lpf (0-5) Urine Bacteria (Auto) NEG (NEG) Laboratory results reviewed by me Medications Administered Medications (Trade) Dose Ordered Sig/Astrid Route Start Time Stop Time Status Last Admin Dose Admin Sodium Chloride 1,000 ml @ 125 mls/hr Q8H STAT IV 06/23/17 17:41 06/23/17 22:58 DC 06/23/17 18:57 125 MLS/HR Piperacillin Sod/ Tazobactam Sod (Zosyn Iv) 4.5 gm NOW STAT IV 06/23/17 19:31 06/23/17 19:33 DC 06/23/17 19:53 4.5 GM ECG Per My Interpretation Indication: syncope Rate (beats per minute): 65 Rhythm: normal sinus Findings: no acute ischemic change, no ectopy ED Course 1735: The patient was evaluated in room C11B. A complete history and physical exam was performed. 1740: Ordered Sodium Chloride 1,000 ml @ 125 mls/hr IV 1924: Bladder scan showed 900 ml after she urinated. 1930: Ordered Zosyn 4.5 gm IV 1934: I reassessed the patient at this time. I discussed the results and treatment plan with the patient. I answered all pertaining questions that she had. She expressed understanding and verbalized agreement. The patient will be further evaluated. 1939: [facility] [place] We discussed the patient' s case. [facility] 2005: The patient released 1100 ml more after Pizano catheter in place. Medical Decision Triage Nursing notes reviewed. The patient's presentation and history were concerning for syncope, head injury , and abdominal pain Etiologies such as vasovagal event, infection, hypoglycemia, electrolyte abnormalities, cardiac sources, intracerebral event, toxicologic, neurologic, intra-abdominal process, ruptured AAA, infection, as well as others were entertained. The patient was evaluated. She was tender in the abdomen. She had blood work obtained. She was sent emergently for CT imaging. Head CT did not reveal any acute findings. The patient has significant bladder distention as well as findings concerning for diverticulitis/colitis. She was treated with IV Zosyn. The patient had urinated but bladder scan still showed significant amount of urine present. A Pizano catheter was placed and over 1100 mL of urine were obtained. Urinalysis was pending. The patient will need treatment in the hospital. [facility] The patient was evaluated in the ER and admitted for further treatment. Medication Reconcilliation Current Medication List: was personally reviewed by me Blood Pressure Screening Patient's blood pressure: Elevated blood pressure monitored by hospitalist Consults Time Called: 1939 Consulting Physician: Dr. Tan [facility] [place] I [facility] [place]. We discussed the patient's case. [facility]. Impression Primary Impression: Syncope Additional Impressions: Urinary retention Diverticulitis Closed head injury Scribe Attestation The scribe's documentation has been prepared under my direction and personally reviewed by me in its entirety. I confirm that the note above accurately reflects all work, treatment, procedures, and medical decision making performed by me. Departure Information Dispostion Being Evaluated By Hospitalist Referrals Roly Vogel M.D. (PCP) Patient Instructions [facility] Problem Qualifiers
[2017-06-23] MEDS: METOPROLOL TARTRATE 25 MG TAB PO SCH (23:30)
[2017-06-23] MEDS: ROPINIROLE HCL 1 MG TAB PO SCH (23:30)
[2017-06-23] MEDS: ROSUVASTATIN CALCIUM 10 MG TAB PO SCH (23:38)
[2017-06-24] VITALS (8 sets, daily range): BP systolic 106–183; BP diastolic 61–97; PULSE 61–71; TEMP 36.7–37.5; O2SAT 95–97; Ht 142.2 cm; Wt 54.4 kg
--- NOTE | 2017-06-24 01:22 | HISTORY & PHYSICAL EXAMINATION ---
DATE OF ADMISSION: 06/23/2017 CHIEF COMPLAINT: Syncope. HISTORY OF PRESENT ILLNESS: This is an 87-year-old female with past medical history significant for atopic dermatitis, generalized anxiety, rosacea, chronic rhinitis, restless leg syndrome, SVT, tachybrady syndrome, status post pacemaker, hyperlipidemia, senile osteoporosis, neurofibroma of multiple sites, hypertension, hypothyroidism, atrial fibrillation, hypertension, history of syncope. Presents with brief episode of syncope. Patient says she was putting ham in the refrigerator. When she turned around, she hit the door of the cupboard and for a split of a second she passed out and her daughter came and held her and she came back and she sat her in the chair and since then she is doing okay. No loss of consciousness since then. She was brought into the ER. Currently, she has some small bump in the forehead, but denies any headaches, no dizziness, no blurred vision, no earaches, no runny nose, no sore throat, no difficulty swallowing. No chest pain, no shortness of breath, no cough, no fever, no chills. Mild abdominal discomfort. Today, after she was examined in the ER, denies any constipation or diarrhea, no blood in the stools. She states bladder movements are normal and denies any blood in the urine. No swelling in the legs. No skin rash. Walks with help of walker outside the house. In the house, she walks with holding on the johns. Otherwise, she was doing okay. She was here in the hospital in last week of March with a syncope and she had extensive workup with MRI/MRA of the head and neck and echo and carotid Dopplers and a pacemaker interrogation which were all unremarkable and her syncope at that time was thought to be secondary to vasovagal. Currently, resting comfortable and hemodynamically stable. ALLERGIES: ADHESIVE TAPES, PREMARIN, SULFA, ANTIBIOTICS, TETANUS TOXOID. PAST MEDICAL HISTORY: As mentioned above. PAST SURGICAL HISTORY: Carpal tunnel surgery, cataract surgeries, total abdominal hysterectomy with removal of tubes, pacemaker insertion. MEDICATIONS: Patient is on citalopram 10 mg p.o. daily, doxycycline 50 mg p.o. daily, levocetirizine tablet of 5 mg 1 tablet p.o. daily p.r.n., levothyroxine 50 mcg p.o. daily, loperamide 2 mg p.r.n., meclizine 12.5 mg p.o. p.r.n., Lopressor 25 mg p.o. b.i.d., Nitrostat 0.4 mg p.r.n., Zofran 8 mg p.o. 8 hours p.r.n., Requip 0.5 mg p.o. a.m., Requip 1 mg p.o. b.i.d., Crestor 10 mg p.o. daily, Tylenol 650 mg every 6 hours p.r.n., Coumadin 2 mg every day except on Wednesday 1 mg or as directed by Coumadin clinic. FAMILY HISTORY: No family history on file. SOCIAL HISTORY: , lives with her daughter. No smoking history. No alcohol, no drug use. REVIEW OF SYSTEMS: As per HPI. Rest of review of systems negative. PHYSICAL EXAMINATION: GENERAL: Patient is of moderate build, not in distress. VITAL SIGNS: Temperature 37.2, pulse 66, respiratory rate 18, blood pressure 171/80, oxygen 96% room air. HEENT: No pallor, no icterus. Pupils equal, round, reactive to light. NECK: No JVD, no neck masses, no carotid bruit. CARDIOVASCULAR: S1, S2 heard. Regular rate and rhythm. No murmur, no gallop. RESPIRATORY SYSTEM: Clear to auscultation bilaterally. No wheezing, no crackles. ABDOMEN: Soft, bowel sounds present. Nontender. Mild discomfort in epigastric and left lower quadrant region. No guarding, no rigidity, no distention. CENTRAL NERVOUS SYSTEM: Cranial nerves II-XII grossly intact. Nonfocal. EXTREMITIES: Trace pedal edema, no erythema seen. LABORATORIES: WBC 7.4, hemoglobin 11.6, hematocrit 36.5, platelets 231. Sodium 136, potassium 4.2, chloride 106, BUN 21, creatinine 1, serum glucose 78, calcium 8.9, magnesium 2.6, total bilirubin 0.5, direct bilirubin 0.1, AST 26, ALT 24, alkaline phosphatase 96, troponin I less than 0.015, lipase 246. TSH 0.230. PT 23.1, INR 2.2, APTT of 35.2. Urinalysis positive for leukocyte esterase. CT of the head: No acute findings seen. Chest x-ray: No acute findings seen. CT of the abdomen and pelvis shows mild wall thickening and a pericolonic infiltration at the junction of the descending colon and sigmoid colon, no abscess or free air. This favors diverticulitis, although nonspecific colitis could appear similar. Marked distention of the bladder. EKG shows normal sinus rhythm at a rate of 65, no significant change from previous EKG. ASSESSMENT AND PLAN: This is an 87-year-old female who presents with syncope from a minor head injury and also found to have diverticulitis and bladder distention. 1. Syncope. Patient hit on the door of the cupboard and passed for a brief moment and came back and she is doing okay. Hemodynamically stable. CT of the head is unremarkable. EKG unremarkable. Patient was here in last week of March with syncope and extensive workup with MRI and MRA of the head and neck and carotid Dopplers and pacemaker interrogation which were all unremarkable. We will just watch in the tele floor and monitor. PT/OT when patient is stable. 2. Diverticulitis on the CAT scan, possible colitis. Patient says she has diverticulitis diagnosed a couple of years ago. At that time, patient improved with antibiotics. Currently on CAT scan, it seems to be again diverticulitis, but better than last CAT scan. We will place IV Zosyn. We will consult GI. She had a colonoscopy done in October 2015, which showed severe diverticulosis of sigmoid colon and there was narrowing of the colon in association with diverticular opening and diverticular spasm. The procedure was aborted due to multiple diverticuli in the colon and restricted mobility of the colon. We will place the patient on clear liquid diet, IV Zosyn, and consult GI for further recommendations. 3. Urinary retention. Patient had similar issues last admission too. After emptying the bladder, patient still has 900 mL of urine and she was placed on Pizano catheter currently. We will consult urology for further recommendations. 4. Tachybrady syndrome, history of AFib, history of SVT status post pacemaker, on Coumadin, on Lopressor. To monitor INR. 5. Hypothyroidism, TSH level is low. On Synthroid 50 mcg,recheck the labs in a.m. 6. History of hypertension, on Lopressor. We will monitor the blood pressure. 7. Chronic kidney disease stage III. We will follow the labs. 8.DVT prophylaxis, on Coumadin. Follow INR. 9. Disposition: Admit to tele floor. PT and OT prior to discharge. Social service to help with discharge planning. MELISA
[2017-06-24] MEDS: PIPERACILL/TAZOBAC IV 3.375 GM in DEXTROSE 5% 100ML 100 ML IV SCH ×2 (01:44→10:23)
[2017-06-24] MEDS: LEVOTHYROXINE 50 MCG TAB PO SCH (05:19)
[2017-06-24 05:39] LABS: BASO % 0.3 %; BASO ABS # 0.02 K/uL (0-0.2); EOS % 2.6 %; HEMATOCRIT 33.4 % (37-47); HEMOGLOBIN 10.9 g/dL (12.0-16.0); IG# 0.01 K/uL (0.00-0.02); LYMPH % 21.6 %; LYMPH ABS # 1.64 K/uL (1.2-3.4); MEAN CELL VOLUME 88.6 fL (80-100); MEAN CORPUSCULAR HEMOGLOBIN 28.9 pg (25-34); MEAN CORPUSCULAR HGB CONC 32.6 g/dl (32-36); MEAN PLATELET VOLUME 10.5 fL (7.4-10.4); MONO % 10.3 %; MONO ABS # 0.78 K/uL (0.11-0.59); NEUT % 65.1 %; NEUT ABS # 4.93 K/uL (1.4-6.5); PLATELET COUNT 195 K/uL (130-400); RED CELL DISTRIBUTION WIDTH CV 15.1 % (11.5-14.5); RED CELL DISTRIBUTION WIDTH SD 48.9 fL (36.4-46.3); WHITE BLOOD COUNT 7.58 K/uL (4.8-10.8)
[2017-06-24 05:49] LABS: INR 2.3 (0.9-1.1)
[2017-06-24 05:56] LABS: CALCIUM 8.6 mg/dl (8.5-10.1); CREATININE 1.06 mg/dl (0.60-1.20)
[2017-06-24] MEDS: CITALOPRAM 20 MG TAB PO SCH (07:43)
[2017-06-24] MEDS: ROPINIROLE HCL 1 MG TAB PO SCH ×4 (07:44→20:45)
[2017-06-24] MEDS: METOPROLOL TARTRATE 25 MG TAB PO SCH ×2 (07:44→20:46)
[2017-06-24] MEDS: DOXYCYCLINE HYCLATE 50 MG CAP PO SCH (07:48)
--- NOTE | 2017-06-24 10:20 | Urology Consultation ---
History General Date of Service: Jun 24, 2017. Chief Complaint: Urinary retention Primary Care Physician: Roly Vogel M.D. Pt seen a urologist before?: No History of Present Illness 87-year-old female admitted after syncopal episode. consulted for urinary retention. Pizano catheter placed for 900 mL return. Draining clear yellow urine this morning. Patient denies weak stream or hesitancy prior to admission. She has no previous history of urinary. She states it was noted in the ED that her abdomen is distended and Pizano catheter was placed at that time. She does report baseline nocturia 3-4 times per night, but notes that she only goes to the bathroom because she wakes up. She has never seen a urologist in the past. She has a history of bladder tack surgery 5-6 years ago by a pharmacy scheduler in [place]. Laboratory Last 24 Hours Test 06/23/17 17:40 06/23/17 19:02 06/24/17 05:15 White Blood Count 7.45 K/uL 7.58 K/uL Red Blood Count 4.11 M/uL 3.77 M/uL Hemoglobin 11.6 g/dL 10.9 g/dL Hematocrit 36.5 % 33.4 % Mean Corpuscular Volume 88.8 fL 88.6 fL Mean Corpuscular Hemoglobin 28.2 pg 28.9 pg Mean Corpuscular Hemoglobin Concent 31.8 g/dl 32.6 g/dl Platelet Count 231 K/uL 195 K/uL Mean Platelet Volume 10.7 fL 10.5 fL Neutrophils (%) (Auto) 54.7 % 65.1 % Lymphocytes (%) (Auto) 32.9 % 21.6 % Monocytes (%) (Auto) 9.3 % 10.3 % Eosinophils (%) (Auto) 2.7 % 2.6 % Basophils (%) (Auto) 0.3 % 0.3 % Neutrophils # (Auto) 4.08 K/uL 4.93 K/uL Lymphocytes # (Auto) 2.45 K/uL 1.64 K/uL Monocytes # (Auto) 0.69 K/uL 0.78 K/uL Eosinophils # (Auto) 0.20 K/uL 0.20 K/uL Basophils # (Auto) 0.02 K/uL 0.02 K/uL RDW Standard Deviation 49.4 fL 48.9 fL RDW Coefficient of Variation 15.2 % 15.1 % Immature Granulocyte % (Auto) 0.1 % 0.1 % Immature Granulocyte # (Auto) 0.01 K/uL 0.01 K/uL Prothrombin Time 23.1 SECONDS 23.5 SECONDS Prothromb Time International Ratio 2.2 2.3 Activated Partial Thromboplast Time 35.2 SECONDS Partial Thromboplastin Ratio 1.4 Sodium Level 136 mmol/L 138 mmol/L Potassium Level 4.2 mmol/L 4.0 mmol/L Chloride Level 106 mmol/L 109 mmol/L Carbon Dioxide Level 25 mmol/L 25 mmol/L Anion Gap 5.0 mmol/L 4.0 mmol/L Blood Urea Nitrogen 21 mg/dl 16 mg/dl Creatinine 1.02 mg/dl 1.06 mg/dl Est Creatinine Clear Calc Drug Dose 33.9 ml/min 29.3 ml/min Estimated GFR () 57.7 55.1 Estimated GFR (Non- 49.8 47.5 BUN/Creatinine Ratio 20.4 15.0 Random Glucose 78 mg/dl 90 mg/dl Calcium Level 8.9 mg/dl 8.6 mg/dl Magnesium Level 2.6 mg/dl 2.2 mg/dl Total Bilirubin 0.5 mg/dl Direct Bilirubin 0.1 mg/dl Aspartate Amino Transf (AST/SGOT) 26 U/L Alanine Aminotransferase (ALT/SGPT) 24 U/L Alkaline Phosphatase 96 U/L Troponin I < 0.015 ng/ml Total Protein 7.4 gm/dl Albumin 3.6 gm/dl Lipase 246 U/L Thyroid Stimulating Hormone (TSH) 0.230 uIu/ml 0.301 uIu/ml Urine Color YELLOW Urine Appearance CLEAR Urine pH 6.5 Urine Specific [place] 1.013 Urine Protein NEG Urine Glucose (UA) NEG Urine Ketones NEG Urine Occult Blood NEG Urine Nitrite NEG Urine Bilirubin NEG Urine Urobilinogen NEG Urine Leukocyte Esterase MODERATE Urine WBC (Auto) 10-30 /hpf Urine RBC (Auto) 0-4 /hpf Urine Hyaline Casts (Auto) 0 /lpf Urine Epithelial Cells (Auto) 10-20 /lpf Urine Bacteria (Auto) NEG Free Thyroxine 1.28 ng/dl Free Triiodothyronine 3.19 pg/ml Problem List Medical Problems: (1) Anemia Status: Acute (2) Closed head injury Status: Acute (3) Degenerative joint disease of knee, right Status: Acute (4) Diverticulitis Status: Acute (5) Subtherapeutic international normalized ratio (INR) Status: Acute (6) Syncope Status: Acute (7) Syncope Status: Acute (8) Urinary retention Status: Acute Past History A Fib, anxiety, high cholesterol, hypertension, hypothyroidism, osteoporosis, other (Atopic dermatitis, rosacea, chronic rhinitis, restless leg syndrome, SVT , tachybradycardia syndrome, neurofibroma of multiple sites, syncope) Past Surgical History: hysterectomy (Total abdominal), pacemaker, other ( Carpal tunnel surgery, cataract surgery) Family History Diabetes mellitus Heart disease Hypertension Social History Hx Tobacco Use In Past Year?: No Smoking: non-smoker Alcohol: never Drug use: none Marital status: Housing status: lives with family Occupation status: retired Immunizations History of Influenza Vaccine: Yes Influenza Vaccine Date: Dec 18, 2014 History of Tetanus Vaccine?: Yes Tetanus Immunization Date: Aug 24, 2007 History of Pneumococcal: Yes Pneumococcal Date: Apr 10, 2014 Allergies Coded Allergies: Adhesives (Verified Allergy, Unknown, ADHESIVE TAPE, 12/31/15) Conjugated Estrogens (Verified Allergy, Unknown, SEVERE RASH, PAINFUL FROM VAGINAL CREAM, 12/31/15) Sulfa Antibiotics (Verified Allergy, Unknown, HIVES, RASH, 12/31/15) Tetanus Toxoid (Verified Allergy, Unknown, UNKNOWN, 12/31/15) Medications Home Medications: Home Meds and Scripts Medications Dose Route/Sig Max Daily Dose Days Date Category Dose Instructions Jantoven (Warfarin Sodium) 1 Mg Tab 1 Mg PO WED 06/23/17 Reported Tylenol (Acetaminophen) 325 Mg Tab 650 Mg PO Q6H PRN 03/27/17 Reported Ondansetron HCl (Ondansetron) 8 Mg Tab 8 Mg PO Q8H PRN 11/25/16 Reported Lopressor (Metoprolol Tartrate) 50 Mg Tab 25 Mg PO BID 11/25/16 Reported Warfarin Sodium 1 Mg Tab 2 Mg PO PM 11/25/16 Reported TAKE 2 MG EVERY WEDNESDAY,WEDNESDAY,WEDNESDAY AND WEDNESDAY OR OTHERWISE DIRECETED TO TAKE BY ANTICOAGULATION CLINIC/ Meclizine HCl 25 Mg Tab 12.5 Mg PO UD PRN 11/25/16 Reported TAKE NEEDED FOR DIZZINESS/VERTIGO Doxycycline Hyclate 50 Mg Cap 50 Mg PO QAM 11/25/16 Reported Crestor (Rosuvastatin Calcium) 10 Mg Tab 10 Mg PO PM 12/31/15 Reported Synthroid (Levothyroxine Sodium) 50 Mcg Tab 50 Mcg PO QAM 12/31/15 Reported TAKE THIS MEDICATION 30 MINUTES BEFORE BREAKFAST OR ANY OTHER MEDICATIONS Levocetirizine Dihydrochl (Levocetirizine Dihydrochloride) 5 Mg Tab 5 Mg PO DAILY PRN 12/10/15 Reported Metrocream (Metronidazole (Topical)) 0.75 % Cre 1 Appln TOP DAILY PRN 12/10/15 Reported APPLY TO FACE DIRECTED Ammonium Lactate (Lactic Acid (Ammonium Lactate)) 12 % Lot 1 Appln TOP BID PRN 12/10/15 Reported Imodium (Loperamide HCl) 2 Mg Cap 2 Mg PO UD PRN 12/10/15 Reported TAKE ONE CAPSULE AFTER EACH LOOSE BOWEL MOVEMENT. DO NOT EXCEED MORE THAN 8 CAPSULES DAILY. Temovate (Clobetasol Propionate) 0.05 % Cre 1 Appln TOP BID PRN 12/10/15 Reported Requip (Ropinirole HCl) 1 Mg Tab 1 Mg PO BID 10/30/15 Reported TAKE THIS MEDICATION WITH EVENING MEAL AND AT BEDTIME Requip (Ropinirole HCl) 0.5 Mg Tab 0.5 Mg PO QAM 10/30/15 Reported TAKE ONE TABLET EVERY MORNING AND AN ADDITONAL TABLET DURING THE DAY IF NEEDED Citalopram Hydrobromide 10 Mg Tab 10 Mg PO QAM 10/30/15 Reported Nitrostat (Nitroglycerin) 0.4 Mg Tab 0.4 Mg UT UD PRN 05/29/[address] ONE TABLET UNDER THE TONGUE Inpatient Medications: Current Inpatient Medications Medications (Trade) Dose Ordered Sig/Astrid Route Start Time Stop Time Status Last Admin Dose Admin Acetaminophen (Tylenol Tab) 650 mg Q4H PRN PO 06/23/17 20:45 07/23/17 20:44 06/24/17 05:19 650 MG Al Hydrox/Mg Hydrox/Simethicone (Maalox Max Susp) 15 ml Q4H PRN PO 06/23/17 20:45 07/23/17 20:44 Ondansetron HCl (Zofran Inj) 4 mg Q6H PRN IV 06/23/17 20:45 07/23/17 20:44 Nitroglycerin (Nitrostat Tab) 0.4 mg UD PRN SL 06/23/17 20:45 07/23/17 20:44 Polyethylene (Miralax Powder Packet) 17 gm DAILY PRN PO 06/23/17 20:45 07/23/17 20:44 Doxycycline Hyclate (Vibramycin Cap) 50 mg QAM PO 06/24/17 09:00 07/04/17 08:59 06/24/17 07:48 50 MG Ammonium Lactate (Lac-Hydrin) 1 appl BID PRN EXT 06/23/17 20:45 07/23/17 20:44 Levothyroxine Sodium (Synthroid Tab) 50 mcg DAILYBB PO 06/24/17 06:30 07/24/17 06:59 06/24/17 05:19 50 MCG Loperamide HCl (Imodium Cap) 2 mg Q3H PRN PO 06/23/17 20:45 07/23/17 20:44 Meclizine HCl (Antivert Tab) 12.5 mg DAILY PRN PO 06/23/17 20:45 07/23/17 20:44 Metoprolol Tartrate (Lopressor Tab) 25 mg BID PO 06/23/17 21:00 07/23/17 20:59 06/24/17 07:44 25 MG Ondansetron HCl (Zofran Tab) 8 mg Q8H PRN PO 06/23/17 20:45 07/23/17 20:44 Ropinirole HCl (Requip Tab) 0.5 mg QAM PO 06/24/17 09:00 07/24/17 08:59 06/24/17 07:44 0.5 MG Ropinirole HCl (Requip Tab) 1 mg BID PO 06/23/17 21:00 07/23/17 20:59 06/24/17 07:44 1 MG Rosuvastatin Calcium (Crestor Tab) 10 mg PM PO 06/23/17 21:00 07/23/17 20:59 06/23/17 23:38 10 MG Citalopram Hydrobromide (celeXA TAB) 10 mg QAM PO 06/24/17 09:00 07/24/17 08:59 06/24/17 07:43 10 MG Clobetasol Propionate (Clobetasol Propionate Oint) 1 appln BID PRN EXT 06/23/17 20:45 07/23/17 20:44 Miscellaneous Information (Order Awaiting Action) 1 ea QS N/A 06/24/17 08:00 07/24/17 07:59 Miscellaneous Information (Order Awaiting Action) 1 ea QS N/A 06/24/17 08:00 07/24/17 07:59 Piperacillin Sod/ Tazobactam Sod 3.375 gm/Dextrose 115 ml @ 28.75 mls/ hr Q8H IV 06/24/17 02:00 07/04/17 01:59 06/24/17 01:44 28.75 MLS/HR Miscellaneous Information (Consult) 1 ea UD PRN N/A 06/23/17 20:45 07/23/17 20:44 Warfarin Sodium (Coumadin Tab) 2 mg SuMoTuThFrSa@1600 PO 06/24/17 16:00 07/24/17 15:59 Warfarin Sodium (Coumadin Tab) 1 mg We@1600 PO 06/30/17 16:00 07/30/17 15:59 Review of Systems Review of Systems Constitutional: No fever, No chills Eyes: No double vision Neurological: No dizzy Endocrine: No excessive thirst Gastrointestinal: No abdominal pain, No nausea, No vomiting Cardiovascular: No chest pain Respiratory: No shortness of breath Skin: No rash Musculoskeletal: + arthritis Female : + urinary retention, No blood in urine Physical Exam Vital Signs: Vital Signs Past 12 Hours Date Time Temp Pulse Resp B/P (MAP) Pulse Ox O2 Delivery O2 Flow Rate FiO2 06/24/17 07:45 Room Air 06/24/17 07:28 36.8 71 18 121/70 (87) 95 Room Air 06/24/17 04:54 36.7 65 17 131/72 (91) 97 Room Air 06/24/17 04:15 Room Air 06/24/17 00:08 36.9 71 18 183/97 97 Room Air 06/23/17 22:18 68 18 167/79 96 Physical Exam: General Appearance: no apparent distress Eyes: bilateral eyes normal inspection ENT: hearing grossly normal Neck: no JVD Respiratory/Chest: no respiratory distress, no accessory muscle use Cardiovascular: no JVD Extremities: normal inspection Neurologic/Psychiatric: alert, normal mood/affect, oriented x 3 Skin: normal color Assessment & Plan Assessment & Plan A/P: Urinary retention AFVSS Patient with urinary retention on admission. We will plan to leave Pizano catheter in place for now. Plan for trial of void prior to discharge home. If patient unable to successfully void, will replace Pizano catheter for 7-10 days and plan for outpatient trial of void at that time. Thanks for the consult. We will continue to follow along with primary service.
--- NOTE | 2017-06-24 12:12 | Gastrointestinal Consultation ---
Gastrointestinal Consultation Date of Consultation: Jun 24, 2017 Attending Physician: Tesfaye Mccray Consulting Physician: Marybeth Montez Reason for Consultation: Diverticulitis History of Present Illness Patient is a 87 year old female w PMHx of atopic dermatitis, ROMULO, rosacea, RLS, SVT, tachybrady syndrome, s/p pacemaker placement, HLD, OP, neurofibroma, HTN, hypothyroidism, Afib, HTN who presented to ED after a syncopal episode. She was putting ham in fridge and hit head at door of cupboard, passed out momentarily. CT head ok. Upon exam she did have a slight bump on forehead. ED physician did notice that her abd was distended and she was having RLQ abd pain on exam. CT abd/pelvis w/o contrast obtained: which showed mild wall thickening and pericolonic infiltration at the junction of the descending colon and sigmoid colon. No abscess or free air. This favors diverticulitis although a nonspecific colitis could appear similar. Similar but more severe findings were shown on multiple previous studies at this site. Pocket of gas which appears to be adjacent to the wall of the colon does not reflect free air. It's unclear whether this represents a diverticulum or contained extraluminal gas. She also had marked distension of the bladder. She had been started on Zosyn IV, Pizano cath placement done w 1.5L UOP. She is currently laying in bed comfortably. Reports that she is tolerating liquid diet this AM w/o n/v, increased abd pain. On exam she is tender on LLQ abd area but said that abd pain is improved that prior. She admits last episode of diverticulitis was 2 yrs ago. She had prior colonoscopy in 2016 which showed severe diverticulosis fo sigmoid colon, and narrowing of diverticular opening and spasms. Procedure was aborted due to the multiple diverticuli and restricted mobility of the colon. CBC, PT/INR, CMP reviewed. Past Medical/Surgical History Medical Problems: (1) Anemia Status: Acute (2) Closed head injury Status: Acute (3) Degenerative joint disease of knee, right Status: Acute (4) Diverticulitis Status: Acute (5) Subtherapeutic international normalized ratio (INR) Status: Acute (6) Syncope Status: Acute (7) Syncope Status: Acute (8) Urinary retention Status: Acute Past Medical History: See above Past Surgical History: As above, carpal tunnel surgery, cataract surgeries, total hysterectomy, Family History Diabetes mellitus Heart disease Hypertension Social History Smoking Status: Never Smoker Alcohol Use: none Drug Use: none Marital Status: Housing Status: lives with family Occupation Status: retired Allergies Coded Allergies: Adhesives (Verified Allergy, Unknown, ADHESIVE TAPE, 12/31/15) Conjugated Estrogens (Verified Allergy, Unknown, SEVERE RASH, PAINFUL FROM VAGINAL CREAM, 12/31/15) Sulfa Antibiotics (Verified Allergy, Unknown, HIVES, RASH, 12/31/15) Tetanus Toxoid (Verified Allergy, Unknown, UNKNOWN, 12/31/15) Current Medications Home Meds and Scripts Medications Dose Route/Sig Max Daily Dose Days Date Category Dose Instructions Jantoven (Warfarin Sodium) 1 Mg Tab 1 Mg PO WED 06/23/17 Reported Tylenol (Acetaminophen) 325 Mg Tab 650 Mg PO Q6H PRN 03/27/17 Reported Ondansetron HCl (Ondansetron) 8 Mg Tab 8 Mg PO Q8H PRN 11/25/16 Reported Lopressor (Metoprolol Tartrate) 50 Mg Tab 25 Mg PO BID 11/25/16 Reported Warfarin Sodium 1 Mg Tab 2 Mg PO PM 11/25/16 Reported TAKE 2 MG EVERY WEDNESDAY,WEDNESDAY,WEDNESDAY AND WEDNESDAY OR OTHERWISE DIRECETED TO TAKE BY ANTICOAGULATION CLINIC/MD Meclizine HCl 25 Mg Tab 12.5 Mg PO UD PRN 11/25/16 Reported TAKE NEEDED FOR DIZZINESS/VERTIGO Doxycycline Hyclate 50 Mg Cap 50 Mg PO QAM 11/25/16 Reported Crestor (Rosuvastatin Calcium) 10 Mg Tab 10 Mg PO PM 12/31/15 Reported Synthroid (Levothyroxine Sodium) 50 Mcg Tab 50 Mcg PO QAM 12/31/15 Reported TAKE THIS MEDICATION 30 MINUTES BEFORE BREAKFAST OR ANY OTHER MEDICATIONS Levocetirizine Dihydrochl (Levocetirizine Dihydrochloride) 5 Mg Tab 5 Mg PO DAILY PRN 12/10/15 Reported Metrocream (Metronidazole (Topical)) 0.75 % Cre 1 Appln TOP DAILY PRN 12/10/15 Reported APPLY TO FACE DIRECTED Ammonium Lactate (Lactic Acid (Ammonium Lactate)) 12 % Lot 1 Appln TOP BID PRN 12/10/15 Reported Imodium (Loperamide HCl) 2 Mg Cap 2 Mg PO UD PRN 12/10/15 Reported TAKE ONE CAPSULE AFTER EACH LOOSE BOWEL MOVEMENT. DO NOT EXCEED MORE THAN 8 CAPSULES DAILY. Temovate (Clobetasol Propionate) 0.05 % Cre 1 Appln TOP BID PRN 12/10/15 Reported Requip (Ropinirole HCl) 1 Mg Tab 1 Mg PO BID 10/30/15 Reported TAKE THIS MEDICATION WITH EVENING MEAL AND AT BEDTIME Requip (Ropinirole HCl) 0.5 Mg Tab 0.5 Mg PO QAM 10/30/15 Reported TAKE ONE TABLET EVERY MORNING AND AN ADDITONAL TABLET DURING THE DAY IF NEEDED Citalopram Hydrobromide 10 Mg Tab 10 Mg PO QAM 10/30/15 Reported Nitrostat (Nitroglycerin) 0.4 Mg Tab 0.4 Mg UT UD PRN 05/29/[address] ONE TABLET UNDER THE TONGUE Review of Systems Constitutional: No fever, No chills Respiratory: No cough, No shortness of breath Cardiac: No chest pain Abdomen: + see HPI, + pain, No nausea, No vomiting, No diarrhea, No constipation Neuro: + see HPI Physical Exam Date Time Temp Pulse Resp B/P (MAP) Pulse Ox O2 Delivery O2 Flow Rate FiO2 06/24/17 11:48 37.0 62 18 132/69 (90) 95 Room Air 06/24/17 11:40 Room Air 06/24/17 07:45 Room Air 06/24/17 07:28 36.8 71 18 121/70 (87) 95 Room Air 06/24/17 04:54 36.7 65 17 131/72 (91) 97 Room Air 06/24/17 04:15 Room Air 06/24/17 00:08 36.9 71 18 183/97 97 Room Air 06/23/17 22:18 68 18 167/79 96 06/23/17 21:37 85 18 167/79 96 Room Air 06/23/17 21:00 64 18 128/64 96 Room Air 06/23/17 19:53 68 18 169/78 100 Room Air 06/23/17 18:30 66 18 171/80 96 Room Air 06/23/17 17:51 68 06/23/17 17:49 100 Room Air 06/23/17 17:40 37.2 73 18 183/107 100 Room Air General Appearance: WD/WN, no apparent distress Eyes: normal inspection, PERRL, EOMI Neck: supple, no JVD, trachea midline Respiratory/Chest: normal breath sounds, no respiratory distress, no accessory muscle use Cardiovascular: regular rate, rhythm, no gallop, no murmur Abdomen: normal bowel sounds, soft, + tenderness (LLQ) Extremities: normal inspection, no pedal edema, no calf tenderness Neurologic/Psych: alert, normal mood/affect, oriented x 3 Skin: normal color, no jaundice, no rash Laboratory Results Last 24 Hours Test 06/23/17 17:40 06/23/17 19:02 06/24/17 05:15 White Blood Count 7.45 K/uL 7.58 K/uL Red Blood Count 4.11 M/uL 3.77 M/uL Hemoglobin 11.6 g/dL 10.9 g/dL Hematocrit 36.5 % 33.4 % Mean Corpuscular Volume 88.8 fL 88.6 fL Mean Corpuscular Hemoglobin 28.2 pg 28.9 pg Mean Corpuscular Hemoglobin Concent 31.8 g/dl 32.6 g/dl Platelet Count 231 K/uL 195 K/uL Mean Platelet Volume 10.7 fL 10.5 fL Neutrophils (%) (Auto) 54.7 % 65.1 % Lymphocytes (%) (Auto) 32.9 % 21.6 % Monocytes (%) (Auto) 9.3 % 10.3 % Eosinophils (%) (Auto) 2.7 % 2.6 % Basophils (%) (Auto) 0.3 % 0.3 % Neutrophils # (Auto) 4.08 K/uL 4.93 K/uL Lymphocytes # (Auto) 2.45 K/uL 1.64 K/uL Monocytes # (Auto) 0.69 K/uL 0.78 K/uL Eosinophils # (Auto) 0.20 K/uL 0.20 K/uL Basophils # (Auto) 0.02 K/uL 0.02 K/uL RDW Standard Deviation 49.4 fL 48.9 fL RDW Coefficient of Variation 15.2 % 15.1 % Immature Granulocyte % (Auto) 0.1 % 0.1 % Immature Granulocyte # (Auto) 0.01 K/uL 0.01 K/uL Prothrombin Time 23.1 SECONDS 23.5 SECONDS Prothromb Time International Ratio 2.2 2.3 Activated Partial Thromboplast Time 35.2 SECONDS Partial Thromboplastin Ratio 1.4 Sodium Level 136 mmol/L 138 mmol/L Potassium Level 4.2 mmol/L 4.0 mmol/L Chloride Level 106 mmol/L 109 mmol/L Carbon Dioxide Level 25 mmol/L 25 mmol/L Anion Gap 5.0 mmol/L 4.0 mmol/L Blood Urea Nitrogen 21 mg/dl 16 mg/dl Creatinine 1.02 mg/dl 1.06 mg/dl Est Creatinine Clear Calc Drug Dose 33.9 ml/min 29.3 ml/min Estimated GFR () 57.7 55.1 Estimated GFR (Non- 49.8 47.5 BUN/Creatinine Ratio 20.4 15.0 Random Glucose 78 mg/dl 90 mg/dl Calcium Level 8.9 mg/dl 8.6 mg/dl Magnesium Level 2.6 mg/dl 2.2 mg/dl Total Bilirubin 0.5 mg/dl Direct Bilirubin 0.1 mg/dl Aspartate Amino Transf (AST/SGOT) 26 U/L Alanine Aminotransferase (ALT/SGPT) 24 U/L Alkaline Phosphatase 96 U/L Troponin I < 0.015 ng/ml Total Protein 7.4 gm/dl Albumin 3.6 gm/dl Lipase 246 U/L Thyroid Stimulating Hormone (TSH) 0.230 uIu/ml 0.301 uIu/ml Urine Color YELLOW Urine Appearance CLEAR Urine pH 6.5 Urine Specific [place] 1.013 Urine Protein NEG Urine Glucose (UA) NEG Urine Ketones NEG Urine Occult Blood NEG Urine Nitrite NEG Urine Bilirubin NEG Urine Urobilinogen NEG Urine Leukocyte Esterase MODERATE Urine WBC (Auto) 10-30 /hpf Urine RBC (Auto) 0-4 /hpf Urine Hyaline Casts (Auto) 0 /lpf Urine Epithelial Cells (Auto) 10-20 /lpf Urine Bacteria (Auto) NEG Free Thyroxine 1.28 ng/dl Free Triiodothyronine 3.19 pg/ml Impression Patient is a 87 year old female who presented to ED w syncopal episode after hitting forehead on cupboard, CT head unremarkable. Upon exam in ED found to have abd distension, RLQ abd pain which was followed by CT abd/pelvis w/o contrast which then showed L sided diverticulitis vs nonspecific colitis (less likely given no diarrhea) and possible air pocket in adjacent colon area likely from diverticuli instead of pneumoperitoneum given on exam she doesn't have peritoneal signs and no leukocytosis. She also had a distended bladder, urinary retention currently Pizano cath in place and draining well. Hx of bladder tack 4- 5 yrs ago, Urology consulted and following. Plan - Advanced to [place] diet, advance as tolerated - Changed Zosyn to Cipro and Flagyl IV for her diverticulitis - If diarrhea, obtain stool cx and Cdiff - Will defer repeat colonoscopy at this time given her anatomy causing this procedure to be difficult (diverticuli narrowing and spasms), her advanced age, comorbidities and being on Coumadin. Attg add: I interviewed and examined pt, reviewed chart and labs. Pt with RLQ pain on admission, CT with ? diverticulitis. Agree with abx, diet as tolerated.
[2017-06-24] MEDS ORDERED: METRONIDAZOLE / NSS 500 MG in PREMIXED NSS 100 ML IV SCH (14:00)
[2017-06-24] MEDS: WARFARIN SOD 2 MG TAB PO SCH (16:36)
[2017-06-24] MEDS ORDERED: NURSING VERBAL MED ORDER ONE (17:15)
[2017-06-24] MEDS ORDERED: ROPINIROLE HCL 1 MG TAB PO PRN (18:00)
--- NOTE | 2017-06-24 18:08 | Progress Note ---
Subjective Date of Service: Jun 24, 2017. Subjective Pt evaluation today including: conversation w/ patient, conversation w/ family , physical exam, lab review, review of studies, review of inpatient medication list Saw/examined the patient in room 278 She's doing okay, denies abdominal pain, nausea/vomiting Tolerating clear liquid diet Had a bowel movement, no blood noted, no diarrhea Ambulating well without dizziness Problem List Medical Problems: (1) Anemia Status: Acute (2) Closed head injury Status: Acute (3) Degenerative joint disease of knee, right Status: Acute (4) Diverticulitis Status: Acute (5) Subtherapeutic international normalized ratio (INR) Status: Acute (6) Syncope Status: Acute (7) Syncope Status: Acute (8) Urinary retention Status: Acute Review of Systems Constitutional: No fever, No chills Abdomen: No pain (improved), No nausea, No vomiting, No diarrhea, No constipation, No GI bleeding Musculoskeletal: No joint pain Female : No dysuria, No urinary frequency Heme: No abnormal bleeding/bruising Medications Current Inpatient Medications Medications (Trade) Dose Ordered Sig/Astrid Route Start Time Stop Time Status Last Admin Dose Admin Acetaminophen (Tylenol Tab) 650 mg Q4H PRN PO 06/23/17 20:45 07/23/17 20:44 06/24/17 05:19 650 MG Al Hydrox/Mg Hydrox/Simethicone (Maalox Max Susp) 15 ml Q4H PRN PO 06/23/17 20:45 07/23/17 20:44 Ondansetron HCl (Zofran Inj) 4 mg Q6H PRN IV 06/23/17 20:45 07/23/17 20:44 Nitroglycerin (Nitrostat Tab) 0.4 mg UD PRN SL 06/23/17 20:45 07/23/17 20:44 Polyethylene (Miralax Powder Packet) 17 gm DAILY PRN PO 06/23/17 20:45 07/23/17 20:44 Doxycycline Hyclate (Vibramycin Cap) 50 mg QAM PO 06/24/17 09:00 07/04/17 08:59 06/24/17 07:48 50 MG Ammonium Lactate (Lac-Hydrin) 1 appl BID PRN EXT 06/23/17 20:45 07/23/17 20:44 Levothyroxine Sodium (Synthroid Tab) 50 mcg DAILYBB PO 06/24/17 06:30 07/24/17 06:59 06/24/17 05:19 50 MCG Loperamide HCl (Imodium Cap) 2 mg Q3H PRN PO 06/23/17 20:45 07/23/17 20:44 Meclizine HCl (Antivert Tab) 12.5 mg DAILY PRN PO 06/23/17 20:45 07/23/17 20:44 Metoprolol Tartrate (Lopressor Tab) 25 mg BID PO 06/23/17 21:00 07/23/17 20:59 06/24/17 07:44 25 MG Ondansetron HCl (Zofran Tab) 8 mg Q8H PRN PO 06/23/17 20:45 07/23/17 20:44 Ropinirole HCl (Requip Tab) 0.5 mg QAM PO 06/24/17 09:00 07/24/17 08:59 06/24/17 07:44 0.5 MG Rosuvastatin Calcium (Crestor Tab) 10 mg PM PO 06/23/17 21:00 07/23/17 20:59 06/23/17 23:38 10 MG Citalopram Hydrobromide (celeXA TAB) 10 mg QAM PO 06/24/17 09:00 07/24/17 08:59 06/24/17 07:43 10 MG Clobetasol Propionate (Clobetasol Propionate Oint) 1 appln BID PRN EXT 06/23/17 20:45 07/23/17 20:44 Miscellaneous Information (Order Awaiting Action) 1 ea QS N/A 06/24/17 08:00 07/24/17 07:59 Miscellaneous Information (Order Awaiting Action) 1 ea QS N/A 06/24/17 08:00 07/24/17 07:59 Warfarin Sodium (Coumadin Tab) 2 mg SuMoTuThFrSa@1600 PO 06/24/17 16:00 07/24/17 15:59 06/24/17 16:36 2 MG Warfarin Sodium (Coumadin Tab) 1 mg We@1600 PO 06/30/17 16:00 07/30/17 15:59 Ciprofloxacin/ Dextrose 400 mg/ Prmx 100 ml @ 100 mls/hr Q12 IV 06/24/17 21:00 07/04/17 20:59 Metronidazole 500 mg/Prmx 100 ml @ 100 mls/hr Q8H IV 06/24/17 14:00 07/04/17 13:59 06/24/17 14:12 100 MLS/HR Ropinirole HCl (Requip Tab) 1 mg BID@1700,2100 PO 06/24/17 17:15 07/24/17 17:14 Objective Vital Signs Date Time Temp Pulse Resp B/P (MAP) Pulse Ox O2 Delivery O2 Flow Rate FiO2 06/24/17 16:03 97 Room Air 06/24/17 15:17 36.7 61 18 106/61 (76) 97 Room Air 06/24/17 11:48 37.0 62 18 132/69 (90) 95 Room Air 06/24/17 11:40 Room Air 06/24/17 07:45 Room Air 06/24/17 07:28 36.8 71 18 121/70 (87) 95 Room Air 06/24/17 04:54 36.7 65 17 131/72 (91) 97 Room Air 06/24/17 04:15 Room Air 06/24/17 00:08 36.9 71 18 183/97 97 Room Air 06/23/17 22:18 68 18 167/79 96 06/23/17 21:37 85 18 167/79 96 Room Air 06/23/17 21:00 64 18 128/64 96 Room Air 06/23/17 19:53 68 18 169/78 100 Room Air 06/23/17 18:30 66 18 171/80 96 Room Air 06/23/17 17:51 68 06/23/17 17:49 100 Room Air 06/23/17 17:40 37.2 73 18 183/107 100 Room Air Physical Exam General Appearance: no apparent distress Respiratory/Chest: lungs clear, normal breath sounds, no respiratory distress, no accessory muscle use Cardiovascular: regular rate, rhythm, no edema, no murmur Abdomen: normal bowel sounds, non tender, soft Extremities: normal range of motion, non-tender, normal inspection, no pedal edema, no calf tenderness Laboratory Results Last 24 Hours Test 06/23/17 17:40 06/23/17 19:02 06/24/17 05:15 White Blood Count 7.45 K/uL 7.58 K/uL Red Blood Count 4.11 M/uL 3.77 M/uL Hemoglobin 11.6 g/dL 10.9 g/dL Hematocrit 36.5 % 33.4 % Mean Corpuscular Volume 88.8 fL 88.6 fL Mean Corpuscular Hemoglobin 28.2 pg 28.9 pg Mean Corpuscular Hemoglobin Concent 31.8 g/dl 32.6 g/dl Platelet Count 231 K/uL 195 K/uL Mean Platelet Volume 10.7 fL 10.5 fL Neutrophils (%) (Auto) 54.7 % 65.1 % Lymphocytes (%) (Auto) 32.9 % 21.6 % Monocytes (%) (Auto) 9.3 % 10.3 % Eosinophils (%) (Auto) 2.7 % 2.6 % Basophils (%) (Auto) 0.3 % 0.3 % Neutrophils # (Auto) 4.08 K/uL 4.93 K/uL Lymphocytes # (Auto) 2.45 K/uL 1.64 K/uL Monocytes # (Auto) 0.69 K/uL 0.78 K/uL Eosinophils # (Auto) 0.20 K/uL 0.20 K/uL Basophils # (Auto) 0.02 K/uL 0.02 K/uL RDW Standard Deviation 49.4 fL 48.9 fL RDW Coefficient of Variation 15.2 % 15.1 % Immature Granulocyte % (Auto) 0.1 % 0.1 % Immature Granulocyte # (Auto) 0.01 K/uL 0.01 K/uL Prothrombin Time 23.1 SECONDS 23.5 SECONDS Prothromb Time International Ratio 2.2 2.3 Activated Partial Thromboplast Time 35.2 SECONDS Partial Thromboplastin Ratio 1.4 Sodium Level 136 mmol/L 138 mmol/L Potassium Level 4.2 mmol/L 4.0 mmol/L Chloride Level 106 mmol/L 109 mmol/L Carbon Dioxide Level 25 mmol/L 25 mmol/L Anion Gap 5.0 mmol/L 4.0 mmol/L Blood Urea Nitrogen 21 mg/dl 16 mg/dl Creatinine 1.02 mg/dl 1.06 mg/dl Est Creatinine Clear Calc Drug Dose 33.9 ml/min 29.3 ml/min Estimated GFR () 57.7 55.1 Estimated GFR (Non- 49.8 47.5 BUN/Creatinine Ratio 20.4 15.0 Random Glucose 78 mg/dl 90 mg/dl Calcium Level 8.9 mg/dl 8.6 mg/dl Magnesium Level 2.6 mg/dl 2.2 mg/dl Total Bilirubin 0.5 mg/dl Direct Bilirubin 0.1 mg/dl Aspartate Amino Transf (AST/SGOT) 26 U/L Alanine Aminotransferase (ALT/SGPT) 24 U/L Alkaline Phosphatase 96 U/L Troponin I < 0.015 ng/ml Total Protein 7.4 gm/dl Albumin 3.6 gm/dl Lipase 246 U/L Thyroid Stimulating Hormone (TSH) 0.230 uIu/ml 0.301 uIu/ml Urine Color YELLOW Urine Appearance CLEAR Urine pH 6.5 Urine Specific [place] 1.013 Urine Protein NEG Urine Glucose (UA) NEG Urine Ketones NEG Urine Occult Blood NEG Urine Nitrite NEG Urine Bilirubin NEG Urine Urobilinogen NEG Urine Leukocyte Esterase MODERATE Urine WBC (Auto) 10-30 /hpf Urine RBC (Auto) 0-4 /hpf Urine Hyaline Casts (Auto) 0 /lpf Urine Epithelial Cells (Auto) 10-20 /lpf Urine Bacteria (Auto) NEG Free Thyroxine 1.28 ng/dl Free Triiodothyronine 3.19 pg/ml Assessment and Plan This is an 87 year old female with a past medical history of tachy-enid syndrome s/p permanent pacemaker, paroxysmal atrial fibrillation on long-term anticoagulation, HTN, HLD, CKD stage 3, hypothyroidism, hx. of diverticulitis, hx. of syncope - presents with syncopal episode and collapse and subsequently found to have acute diverticulitis and urinary retention Acute Diverticulitis - appreciate GI input - changed Zosyn to Cipro and Flagyl - spoke with patient's daughter who is a nurse and she stated that Cipro caused a bad reaction in the past - will switch to Unasyn with plans to d/c on Augmentin when okay with GI - colonoscopy in 4-6 weeks as outpatient with GI - continue fluids and clear liquids, advance in AM - +BM, tolerating diet, no nausea/vomiting/diarrhea/GI bleeding Syncope - patient hit her head and lost consciousness - Head CT negative - is ambulating well with a walker - PT/OT ordered - w/up done during previous admission showed no acute findings - no need for further work-up, monitor in tele, and ambulate Urinary Retention - appreciate urology input - Pizano in currently; will d/c prior to discharge with voiding trial, if no improvement, can reinsert for 7-10 days with outpatient urology follow-up Tachy-enid syndrome s/p permanent pacemaker Paroxysmal Atrial Fibrillation - on Coumadin, monitor INR with goal of 2-3 - continue Lopressor - currently in NSR HTN - blood pressure stable, continue home medications DVT ppx - Coumadin FULL CODE
[2017-06-24] MEDS: AMPICILLIN/SULBACTAM SOD INJ 1,500 MG in SODIUM CHLORIDE 0.9% 100ML 100 ML IV SCH ×2 (20:45→23:50)
[2017-06-24] MEDS: ROSUVASTATIN CALCIUM 10 MG TAB PO SCH (20:45)
[2017-06-24] MEDS ORDERED: D5W IV SCH (21:00)
[2017-06-24] MEDS ORDERED: CIPROFLOXACIN IV SCH (21:00)
[2017-06-24] MEDS ORDERED: [UNRECOGNIZED DRUG - OTHER] IV SCH (21:00)
[2017-06-24] MEDS ORDERED: PREMIXED IV SCH (21:00)
[2017-06-25] VITALS (10 sets, daily range): BP systolic 88–163; BP diastolic 51–77; PULSE 61–116; TEMP 36.7–37.2; O2SAT 94–96
[2017-06-25 06:19] LABS: BASO % 0.4 %; BASO ABS # 0.03 K/uL (0-0.2); EOS % 4.1 %; EOS ABS # 0.28 K/uL (0-0.5); HEMATOCRIT 33.4 % (37-47); HEMOGLOBIN 11.2 g/dL (12.0-16.0); IG# 0.01 K/uL (0.00-0.02); LYMPH % 25.8 %; LYMPH ABS # 1.77 K/uL (1.2-3.4); MEAN CELL VOLUME 88.6 fL (80-100); MEAN CORPUSCULAR HEMOGLOBIN 29.7 pg (25-34); MEAN CORPUSCULAR HGB CONC 33.5 g/dl (32-36); MEAN PLATELET VOLUME 10.6 fL (7.4-10.4); MONO % 8.9 %; MONO ABS # 0.61 K/uL (0.11-0.59); NEUT % 60.7 %; NEUT ABS # 4.17 K/uL (1.4-6.5); PLATELET COUNT 184 K/uL (130-400); RED CELL DISTRIBUTION WIDTH CV 15.1 % (11.5-14.5); RED CELL DISTRIBUTION WIDTH SD 48.8 fL (36.4-46.3); WHITE BLOOD COUNT 6.87 K/uL (4.8-10.8)
[2017-06-25] MEDS: AMPICILLIN/SULBACTAM SOD INJ 1,500 MG in SODIUM CHLORIDE 0.9% 100ML 100 ML IV SCH ×2 (06:22→12:08)
[2017-06-25] MEDS: LEVOTHYROXINE 50 MCG TAB PO SCH (06:22)
[2017-06-25 06:32] LABS: INR 2.4 (0.9-1.1)
[2017-06-25 06:55] LABS: CALCIUM 8.4 mg/dl (8.5-10.1); CREATININE 1.13 mg/dl (0.60-1.20)
[2017-06-25] MEDS: CITALOPRAM 20 MG TAB PO SCH (08:13)
[2017-06-25] MEDS: METOPROLOL TARTRATE 25 MG TAB PO SCH (08:13)
[2017-06-25] MEDS: ROPINIROLE HCL 1 MG TAB PO SCH ×2 (08:14→16:12)
[2017-06-25] MEDS: DOXYCYCLINE HYCLATE 50 MG CAP PO SCH (08:14)
--- NOTE | 2017-06-25 09:47 | Progress Note ---
Subjective Date of Service: Jun 25, 2017. Subjective Pt evaluation today including: conversation w/ patient, chart review, lab review Voiding: moody catheter in place (Patent, draining clear yellow urine) 87-year-old female admitted S/P syncopal episode. Found to have diverticulitis on admission. consult and for urinary retention. Moody catheter in place draining clear yellow urine. Patient denies pain or issues with catheter today. Problem List Medical Problems: (1) Anemia Status: Acute (2) Closed head injury Status: Acute (3) Degenerative joint disease of knee, right Status: Acute (4) Diverticulitis Status: Acute (5) Subtherapeutic international normalized ratio (INR) Status: Acute (6) Syncope Status: Acute (7) Syncope Status: Acute (8) Urinary retention Status: Acute Review of Systems Constitutional: No fever, No chills Respiratory: No shortness of breath Cardiac: No chest pain Abdomen: No pain, No nausea, No vomiting Female : No hematuria Heme: No abnormal bleeding/bruising Objective Vital Signs Date Time Temp Pulse Resp B/P (MAP) Pulse Ox O2 Delivery O2 Flow Rate FiO2 06/25/17 07:49 36.7 78 18 151/56 (87) 96 Room Air 06/25/17 05:01 36.7 61 18 146/66 (92) 95 Room Air 06/25/17 04:10 Room Air 06/25/17 00:10 Room Air 06/25/17 00:03 37.2 80 18 118/65 (82) 96 Room Air 06/24/17 20:08 37.5 66 18 116/64 (81) 96 Room Air 06/24/17 20:03 97 Room Air 06/24/17 16:03 97 Room Air 06/24/17 15:17 36.7 61 18 106/61 (76) 97 Room Air 06/24/17 11:48 37.0 62 18 132/69 (90) 95 Room Air 06/24/17 11:40 Room Air Physical Exam General Appearance: no apparent distress Eyes: normal inspection ENT: hearing grossly normal Neck: no JVD Respiratory/Chest: no respiratory distress, no accessory muscle use Cardiovascular: no JVD Extremities: normal inspection Neurologic/Psychiatric: alert, normal mood/affect, oriented x 3 Skin: normal color Laboratory Results Last 24 Hours Test 4/27/18 06:01 White Blood Count 6.87 K/uL Red Blood Count 3.77 M/uL Hemoglobin 11.2 g/dL Hematocrit 33.4 % Mean Corpuscular Volume 88.6 fL Mean Corpuscular Hemoglobin 29.7 pg Mean Corpuscular Hemoglobin Concent 33.5 g/dl Platelet Count 184 K/uL Mean Platelet Volume 10.6 fL Neutrophils (%) (Auto) 60.7 % Lymphocytes (%) (Auto) 25.8 % Monocytes (%) (Auto) 8.9 % Eosinophils (%) (Auto) 4.1 % Basophils (%) (Auto) 0.4 % Neutrophils # (Auto) 4.17 K/uL Lymphocytes # (Auto) 1.77 K/uL Monocytes # (Auto) 0.61 K/uL Eosinophils # (Auto) 0.28 K/uL Basophils # (Auto) 0.03 K/uL RDW Standard Deviation 48.8 fL RDW Coefficient of Variation 15.1 % Immature Granulocyte % (Auto) 0.1 % Immature Granulocyte # (Auto) 0.01 K/uL Prothrombin Time 25.1 SECONDS Prothromb Time International Ratio 2.4 Sodium Level 140 mmol/L Potassium Level 4.0 mmol/L Chloride Level 108 mmol/L Carbon Dioxide Level 27 mmol/L Anion Gap 4.0 mmol/L Blood Urea Nitrogen 10 mg/dl Creatinine 1.13 mg/dl Est Creatinine Clear Calc Drug Dose 24.6 ml/min Estimated GFR () 51.0 Estimated GFR (Non- 44.0 BUN/Creatinine Ratio 9.0 Random Glucose 87 mg/dl Calcium Level 8.4 mg/dl Magnesium Level 2.1 mg/dl Assessment and Plan A/P: Urinary retention AFVSS. Plan for trial of void prior to discharge home. If patient fails trial of void , plan to reinsert catheter for 7-10 days. Urine culture re-incubating at this time. Await sensitivities. We will arrange for outpatient follow-up in 2-3 weeks. No further management at this time. Recall PRN issues. Thanks for allowing us to participate in this patient's care.
[2017-06-25] MEDS ORDERED: SODIUM CHLORIDE 0.9% 1000ML 1,000 ML IV SCH (12:30)
--- NOTE | 2017-06-25 13:59 | Progress Note ---
Subjective Date of Service: Jun 25, 2017. Subjective Pt evaluation today including: conversation w/ patient, physical exam, lab review, review of studies, review of inpatient medication list Saw/examined the patient in room 278 She was ambulating this morning when she felt dizzy; almost like vertigo States she's had this before As per nursing, she fainted in bed, but woke up afterwards She feels fine now no abdominal pain, no nausea/vomiting/diarrhea/GI bleeding tolerating a regular diet Eager to go home Problem List Medical Problems: (1) Anemia Status: Acute (2) Closed head injury Status: Acute (3) Degenerative joint disease of knee, right Status: Acute (4) Diverticulitis Status: Acute (5) Subtherapeutic international normalized ratio (INR) Status: Acute (6) Syncope Status: Acute (7) Syncope Status: Acute (8) Urinary retention Status: Acute Review of Systems Constitutional: + weakness, No fever, No chills Respiratory: No shortness of breath Cardiac: No chest pain Abdomen: No pain, No nausea, No vomiting, No diarrhea, No constipation, No GI bleeding Neurologic: + weakness, + vertigo, + balance problems, No memory loss, No paralysis, No numbness/tingling Medications Current Inpatient Medications Medications (Trade) Dose Ordered Sig/Astrid Route Start Time Stop Time Status Last Admin Dose Admin Acetaminophen (Tylenol Tab) 650 mg Q4H PRN PO 06/23/17 20:45 07/23/17 20:44 06/24/17 05:19 650 MG Al Hydrox/Mg Hydrox/Simethicone (Maalox Max Susp) 15 ml Q4H PRN PO 06/23/17 20:45 07/23/17 20:44 Ondansetron HCl (Zofran Inj) 4 mg Q6H PRN IV 06/23/17 20:45 07/23/17 20:44 Nitroglycerin (Nitrostat Tab) 0.4 mg UD PRN SL 06/23/17 20:45 07/23/17 20:44 Polyethylene (Miralax Powder Packet) 17 gm DAILY PRN PO 06/23/17 20:45 07/23/17 20:44 Doxycycline Hyclate (Vibramycin Cap) 50 mg QAM PO 06/24/17 09:00 07/04/17 08:59 06/25/17 08:14 50 MG Ammonium Lactate (Lac-Hydrin) 1 appl BID PRN EXT 06/23/17 20:45 07/23/17 20:44 Levothyroxine Sodium (Synthroid Tab) 50 mcg DAILYBB PO 06/24/17 06:30 07/24/17 06:59 06/25/17 06:22 50 MCG Loperamide HCl (Imodium Cap) 2 mg Q3H PRN PO 06/23/17 20:45 07/23/17 20:44 Meclizine HCl (Antivert Tab) 12.5 mg DAILY PRN PO 06/23/17 20:45 07/23/17 20:44 Metoprolol Tartrate (Lopressor Tab) 25 mg BID PO 06/23/17 21:00 07/23/17 20:59 06/25/17 08:13 25 MG Ondansetron HCl (Zofran Tab) 8 mg Q8H PRN PO 06/23/17 20:45 07/23/17 20:44 Ropinirole HCl (Requip Tab) 0.5 mg QAM PO 06/24/17 09:00 07/24/17 08:59 06/25/17 08:14 0.5 MG Rosuvastatin Calcium (Crestor Tab) 10 mg PM PO 06/23/17 21:00 07/23/17 20:59 06/24/17 20:45 10 MG Citalopram Hydrobromide (celeXA TAB) 10 mg QAM PO 06/24/17 09:00 07/24/17 08:59 06/25/17 08:13 10 MG Clobetasol Propionate (Clobetasol Propionate Oint) 1 appln BID PRN EXT 06/23/17 20:45 07/23/17 20:44 Miscellaneous Information (Order Awaiting Action) 1 ea QS N/A 06/24/17 08:00 07/24/17 07:59 Miscellaneous Information (Order Awaiting Action) 1 ea QS N/A 06/24/17 08:00 07/24/17 07:59 Warfarin Sodium (Coumadin Tab) 2 mg SuMoTuThFrSa@1600 PO 06/24/17 16:00 07/24/17 15:59 06/24/17 16:36 2 MG Warfarin Sodium (Coumadin Tab) 1 mg We@1600 PO 06/30/17 16:00 07/30/17 15:59 Ropinirole HCl (Requip Tab) 1 mg BID@1700,2100 PO 06/24/17 17:15 07/24/17 17:14 06/24/17 20:45 1 MG Ampicillin Sodium/ Sulbactam Sodium 1500 mg/Sodium Chloride 104 ml @ 200 mls/hr Q6H IV 06/24/17 18:00 07/04/17 17:59 06/25/17 12:08 200 MLS/HR Ropinirole HCl (Requip Tab) 1 mg HS PRN PO 06/24/17 18:00 07/24/17 17:59 Sodium Chloride 1,000 ml @ 100 mls/hr Q10H IV 06/25/17 12:30 06/25/17 16:29 06/25/17 12:42 100 MLS/HR Objective Vital Signs Date Time Temp Pulse Resp B/P (MAP) Pulse Ox O2 Delivery O2 Flow Rate FiO2 06/25/17 12:00 96 Room Air 06/25/17 11:40 36.7 77 18 163/77 (105) 94 Room Air 06/25/17 08:00 96 Room Air 06/25/17 07:49 36.7 78 18 151/56 (87) 96 Room Air 06/25/17 05:01 36.7 61 18 146/66 (92) 95 Room Air 06/25/17 04:10 Room Air 06/25/17 00:10 Room Air 06/25/17 00:03 37.2 80 18 118/65 (82) 96 Room Air 06/24/17 20:08 37.5 66 18 116/64 (81) 96 Room Air 06/24/17 20:03 97 Room Air 06/24/17 16:03 97 Room Air 06/24/17 15:17 36.7 61 18 106/61 (76) 97 Room Air Physical Exam General Appearance: no apparent distress Respiratory/Chest: chest non-tender, lungs clear, normal breath sounds, no respiratory distress, no accessory muscle use Cardiovascular: regular rate, rhythm, no edema, no murmur Abdomen: normal bowel sounds, non tender, soft Extremities: normal inspection, no pedal edema Neurologic/Psychiatric: blood bank specialist II-XII nml as tested, no motor/sensory deficits, alert, normal mood/affect, oriented x 3 Laboratory Results Last 24 Hours Test 06/25/17 06:01 White Blood Count 6.87 K/uL Red Blood Count 3.77 M/uL Hemoglobin 11.2 g/dL Hematocrit 33.4 % Mean Corpuscular Volume 88.6 fL Mean Corpuscular Hemoglobin 29.7 pg Mean Corpuscular Hemoglobin Concent 33.5 g/dl Platelet Count 184 K/uL Mean Platelet Volume 10.6 fL Neutrophils (%) (Auto) 60.7 % Lymphocytes (%) (Auto) 25.8 % Monocytes (%) (Auto) 8.9 % Eosinophils (%) (Auto) 4.1 % Basophils (%) (Auto) 0.4 % Neutrophils # (Auto) 4.17 K/uL Lymphocytes # (Auto) 1.77 K/uL Monocytes # (Auto) 0.61 K/uL Eosinophils # (Auto) 0.28 K/uL Basophils # (Auto) 0.03 K/uL RDW Standard Deviation 48.8 fL RDW Coefficient of Variation 15.1 % Immature Granulocyte % (Auto) 0.1 % Immature Granulocyte # (Auto) 0.01 K/uL Prothrombin Time 25.1 SECONDS Prothromb Time International Ratio 2.4 Sodium Level 140 mmol/L Potassium Level 4.0 mmol/L Chloride Level 108 mmol/L Carbon Dioxide Level 27 mmol/L Anion Gap 4.0 mmol/L Blood Urea Nitrogen 10 mg/dl Creatinine 1.13 mg/dl Est Creatinine Clear Calc Drug Dose 24.6 ml/min Estimated GFR () 51.0 Estimated GFR (Non- 44.0 BUN/Creatinine Ratio 9.0 Random Glucose 87 mg/dl Calcium Level 8.4 mg/dl Magnesium Level 2.1 mg/dl Assessment and Plan This is an 87 year old female with a past medical history of tachy-enid syndrome s/p permanent pacemaker, paroxysmal atrial fibrillation on long-term anticoagulation, HTN, HLD, CKD stage 3, hypothyroidism, hx. of diverticulitis, hx. of syncope - presents with syncopal episode and collapse and subsequently found to have acute diverticulitis and urinary retention Acute Diverticulitis 06/25 - she is tolerating a regular diet, no abdominal pain - no nausea/vomiting/diarrhea/GI bleed - plan to d/c home with Augmentin 06/24 - appreciate GI input - changed Zosyn to Cipro and Flagyl - spoke with patient's daughter who is a nurse and she stated that Cipro caused a bad reaction in the past - will switch to Unasyn with plans to d/c on Augmentin when okay with GI - colonoscopy in 4-6 weeks as outpatient with GI - continue fluids and clear liquids, advance in AM - +BM, tolerating diet, no nausea/vomiting/diarrhea/GI bleeding Syncope - patient hit her head and lost consciousness - Head CT negative - is ambulating well with a walker - PT/OT ordered - w/up done during previous admission showed no acute findings - no need for further work-up, monitor in tele, and ambulate Urinary Retention 06/25 - will try a voiding trial, if it does not work; re-insert Pizano - outpatient urology f/u in 7-10 days 06/24 - appreciate urology input - Pizano in currently; will d/c prior to discharge with voiding trial, if no improvement, can reinsert for 7-10 days with outpatient urology follow-up Tachy-enid syndrome s/p permanent pacemaker Paroxysmal Atrial Fibrillation - on Coumadin, monitor INR with goal of 2-3 - continue Lopressor - currently in NSR HTN - blood pressure stable, continue home medications DVT ppx - Coumadin FULL CODE
[2017-06-25] MEDS: WARFARIN SOD 2 MG TAB PO SCH (16:11)
[2017-06-25] MEDS ORDERED: AMOX500T PO (17:38)
--- NOTE | 2017-06-25 18:06 | Discharge Instructions ---
Discharge Instructions Date of Service Jun 25, 2017. Admission Reason for Admission: Diverticulitis, Syncope And Collapse Discharge Discharge Diagnosis / Problem: Syncope, diverticulitis, urinary retention Discharge Goals Goal(s): Decrease discomfort, Improve function, Diagnostic testing, Therapeutic intervention Activity Recommendations Activity Limitations: resume your previous activity . Instructions / Follow-Up Instructions / Follow-Up Please follow-up with your primary care doctor, you will get a date and time * For your diverticulitis - you will be prescribed Augmentin (antibiotic) - take this for the next 10 days * Outpatient follow-up with gastroenterology and a repeat colonoscopy should be done in 6-8 weeks * for your urinary retention - you are to keep the Pizano catheter in for the next 7-10 days with an outpatient follow-up with urology * for the syncope - please follow-up with PCP and neurology - take Meclizine PRN and stay well hydrated Current Hospital Diet Patient's current hospital diet: Regular Diet Discharge Diet Recommended Diet: Regular Diet Pending Studies Studies pending at discharge: no Medical Emergencies . Who to Call and When: Medical Emergencies: If at any time you feel your situation is an emergency, please call 911 immediately. . Non-Emergent Contact Non-Emergency issues call your: Primary Care Provider, Envelope Sealer Operator, Urologist . . "Provider Documentation" section prepared by Tesfaye Mccray. .
--- NOTE | 2017-06-25 18:11 | Discharge Summary ---
Discharge Summary Date of Service Jun 25, 2017. Discharge Summary Admission Date: Jun 23, 2017 at 20:51 Discharge Date: Jun 25, 2017 Discharge Disposition: Home with services Principal Diagnosis: Syncope Acute Diverticulitis Urinary Retention Medication Reconciliation New Medications: Amoxicillin & Pot Clavulanate (Augmentin 500MG) 1 Tab Tab 500 MG PO Q8H for 10 Days, #30 TAB Continued Medications: Acetaminophen Tab (Tylenol) 325 Mg Tab 650 MG PO Q6H PRN for Pain Citalopram Hydrobromide (Citalopram Hydrobromide) 10 Mg Tab 10 MG PO QAM Clobetasol Propionate (Temovate) 0.05 % Cre 1 APPLN TOP BID PRN for Rash,Itching and Flares Doxycycline Hyclate (Doxycycline Hyclate) 50 Mg Cap 50 MG PO QAM Lactic Acid (Ammonium Lactate) (Ammonium Lactate) 12 % Lot 1 APPLN TOP BID PRN for Affected Area(s) Levocetirizine Dihydrochloride (Levocetirizine Dihydrochl) 5 Mg Tab 5 MG PO DAILY PRN for Allergic Reaction Levothyroxine Sodium (Synthroid) 50 Mcg Tab 50 MCG PO QAM TAKE THIS MEDICATION 30 MINUTES BEFORE BREAKFAST OR ANY OTHER MEDICATIONS Loperamide Hcl (Imodium) 2 Mg Cap 2 MG PO UD PRN for Diarrhea TAKE ONE CAPSULE AFTER EACH LOOSE BOWEL MOVEMENT. DO NOT EXCEED MORE THAN 8 CAPSULES DAILY. Meclizine HCl (Meclizine HCl) 25 Mg Tab 12.5 MG PO UD PRN for Dizziness or Vertigo TAKE NEEDED FOR DIZZINESS/VERTIGO Metoprolol Tartrate (Lopressor) (Lopressor) 50 Mg Tab 25 MG PO BID Metronidazole (Topical) (Metrocream) 0.75 % Cre 1 APPLN TOP DAILY PRN for UNDECIDED APPLY TO FACE DIRECTED Nitroglycerin (Nitrostat) 0.4 Mg Tab 0.4 MG UT UD PRN for Chest Pain PLACE ONE TABLET UNDER THE TONGUE Ondansetron (Ondansetron HCl) 8 Mg Tab 8 MG PO Q8H PRN for Nausea Ropinirole (Requip) 0.5 Mg Tab 0.5 MG PO QAM TAKE ONE TABLET EVERY MORNING AND AN ADDITONAL TABLET DURING THE DAY IF NEEDED Ropinirole (Requip) 1 Mg Tab 1 MG PO BID TAKE THIS MEDICATION WITH EVENING MEAL AND AT BEDTIME Rosuvastatin Calcium (Crestor) 10 Mg Tab 10 MG PO PM Warfarin Sod (Jantoven) 1 Mg Tab 1 MG PO WED Warfarin Sodium (Warfarin Sodium) 1 Mg Tab 2 MG PO PM TAKE 2 MG EVERY WEDNESDAY,WEDNESDAY,WEDNESDAY AND WEDNESDAY OR OTHERWISE DIRECETED TO TAKE BY ANTICOAGULATION CLINIC/MD Admission Information HPI (per Admitting provider): DATE OF ADMISSION: 06/23/2017 CHIEF COMPLAINT: Syncope. HISTORY OF PRESENT ILLNESS: This is an 87-year-old female with past medical history significant for atopic dermatitis, generalized anxiety, rosacea, chronic rhinitis, restless leg syndrome, SVT, tachybrady syndrome, status post pacemaker, hyperlipidemia, senile osteoporosis, neurofibroma of multiple sites, hypertension, hypothyroidism, atrial fibrillation, hypertension, history of syncope. Presents with brief episode of syncope. Patient says she was putting ham in the refrigerator. When she turned around, she hit the door of the cupboard and for a split of a second she passed out and her daughter came and held her and she came back and she sat her in the chair and since then she is doing okay. No loss of consciousness since then. She was brought into the ER. Currently, she has some small bump in the forehead, but denies any headaches, no dizziness, no blurred vision, no earaches, no runny nose, no sore throat, no difficulty swallowing. No chest pain, no shortness of breath, no cough, no fever, no chills. Mild abdominal discomfort. Today, after she was examined in the ER, denies any constipation or diarrhea, no blood in the stools. She states bladder movements are normal and denies any blood in the urine. No swelling in the legs. No skin rash. Walks with help of walker outside the house. In the house, she walks with holding on the johns. Otherwise, she was doing okay. She was here in the hospital in last week of March with a syncope and she had extensive workup with MRI/MRA of the head and neck and echo and carotid Dopplers and a pacemaker interrogation which were all unremarkable and her syncope at that time was thought to be secondary to vasovagal. Currently, resting comfortable and hemodynamically stable. ALLERGIES: ADHESIVE TAPES, PREMARIN, SULFA, ANTIBIOTICS, TETANUS TOXOID. PAST MEDICAL HISTORY: As mentioned above. PAST SURGICAL HISTORY: Carpal tunnel surgery, cataract surgeries, total abdominal hysterectomy with removal of tubes, pacemaker insertion. MEDICATIONS: Patient is on citalopram 10 mg p.o. daily, doxycycline 50 mg p.o. daily, levocetirizine tablet of 5 mg 1 tablet p.o. daily p.r.n., levothyroxine 50 mcg p.o. daily, loperamide 2 mg p.r.n., meclizine 12.5 mg p.o. p.r.n., Lopressor 25 mg p.o. b.i.d., Nitrostat 0.4 mg p.r.n., Zofran 8 mg p.o. 8 hours p.r.n., Requip 0.5 mg p.o. a.m., Requip 1 mg p.o. b.i.d., Crestor 10 mg p.o. daily, Tylenol 650 mg every 6 hours p.r.n., Coumadin 2 mg every day except on Wednesday 1 mg or as directed by Coumadin clinic. FAMILY HISTORY: No family history on file. SOCIAL HISTORY: , lives with her daughter. No smoking history. No alcohol, no drug use. REVIEW OF SYSTEMS: As per HPI. Rest of review of systems negative. PHYSICAL EXAMINATION: GENERAL: Patient is of moderate build, not in distress. VITAL SIGNS: Temperature 37.2, pulse 66, respiratory rate 18, blood pressure 171/80, oxygen 96% room air. HEENT: No pallor, no icterus. Pupils equal, round, reactive to light. NECK: No JVD, no neck masses, no carotid bruit. CARDIOVASCULAR: S1, S2 heard. Regular rate and rhythm. No murmur, no gallop. RESPIRATORY SYSTEM: Clear to auscultation bilaterally. No wheezing, no crackles. ABDOMEN: Soft, bowel sounds present. Nontender. Mild discomfort in epigastric and left lower quadrant region. No guarding, no rigidity, no distention. CENTRAL NERVOUS SYSTEM: Cranial nerves II-XII grossly intact. Nonfocal. EXTREMITIES: Trace pedal edema, no erythema seen. LABORATORIES: WBC 7.4, hemoglobin 11.6, hematocrit 36.5, platelets 231. Sodium 136, potassium 4.2, chloride 106, BUN 21, creatinine 1, serum glucose 78, calcium 8.9, magnesium 2.6, total bilirubin 0.5, direct bilirubin 0.1, AST 26, ALT 24, alkaline phosphatase 96, troponin I less than 0.015, lipase 246. TSH 0.230. PT 23.1, INR 2.2, APTT of 35.2. Urinalysis positive for leukocyte esterase. CT of the head: No acute findings seen. Chest x-ray: No acute findings seen. CT of the abdomen and pelvis shows mild wall thickening and a pericolonic infiltration at the junction of the descending colon and sigmoid colon, no abscess or free air. This favors diverticulitis, although nonspecific colitis could appear similar. Marked distention of the bladder. EKG shows normal sinus rhythm at a rate of 65, no significant change from previous EKG. ASSESSMENT AND PLAN: This is an 87-year-old female who presents with syncope from a minor head injury and also found to have diverticulitis and bladder distention. 1. Syncope. Patient hit on the door of the cupboard and passed for a brief moment and came back and she is doing okay. Hemodynamically stable. CT of the head is unremarkable. EKG unremarkable. Patient was here in last week of March with syncope and extensive workup with MRI and MRA of the head and neck and carotid Dopplers and pacemaker interrogation which were all unremarkable. We will just watch in the tele floor and monitor. PT/OT when patient is stable. 2. Diverticulitis on the CAT scan, possible colitis. Patient says she has diverticulitis diagnosed a couple of years ago. At that time, patient improved with antibiotics. Currently on CAT scan, it seems to be again diverticulitis, but better than last CAT scan. We will place IV Zosyn. We will consult GI. She had a colonoscopy done in October 2015, which showed severe diverticulosis of sigmoid colon and there was narrowing of the colon in association with diverticular opening and diverticular spasm. The procedure was aborted due to multiple diverticuli in the colon and restricted mobility of the colon. We will place the patient on clear liquid diet, IV Zosyn, and consult GI for further recommendations. 3. Urinary retention. Patient had similar issues last admission too. After emptying the bladder, patient still has 900 mL of urine and she was placed on Pizano catheter currently. We will consult urology for further recommendations. 4. Tachybrady syndrome, history of AFib, history of SVT status post pacemaker, on Coumadin, on Lopressor. To monitor INR. 5. Hypothyroidism, TSH level is low. On Synthroid 50 mcg,recheck the labs in a.m. 6. History of hypertension, on Lopressor. We will monitor the blood pressure. 7. Chronic kidney disease stage III. We will follow the labs. 8.DVT prophylaxis, on Coumadin. Follow INR. 9. Disposition: Admit to tele floor. PT and OT prior to discharge. Social service to help with discharge planning Hospital Course This is an 87 year old female with a past medical history of tachy-enid syndrome s/p permanent pacemaker, paroxysmal atrial fibrillation on long-term anticoagulation, HTN, HLD, CKD stage 3, hypothyroidism, hx. of diverticulitis, hx. of syncope - presents with syncopal episode and collapse and subsequently found to have acute diverticulitis and urinary retention Acute Diverticulitis 06/25 - she is tolerating a regular diet, no abdominal pain - no nausea/vomiting/diarrhea/GI bleed - plan to d/c home with Augmentin 06/24 - appreciate GI input - changed Zosyn to Cipro and Flagyl - spoke with patient's daughter who is a nurse and she stated that Cipro caused a bad reaction in the past - will switch to Unasyn with plans to d/c on Augmentin when okay with GI - colonoscopy in 4-6 weeks as outpatient with GI - continue fluids and clear liquids, advance in AM - +BM, tolerating diet, no nausea/vomiting/diarrhea/GI bleeding Syncope - patient hit her head and lost consciousness - Head CT negative - is ambulating well with a walker - PT/OT ordered - w/up done during previous admission showed no acute findings - no need for further work-up, monitor in tele, and ambulate Urinary Retention 06/25 - will try a voiding trial, if it does not work; re-insert Pizano - outpatient urology f/u in 7-10 days 06/24 - appreciate urology input - Pizano in currently; will d/c prior to discharge with voiding trial, if no improvement, can reinsert for 7-10 days with outpatient urology follow-up Tachy-enid syndrome s/p permanent pacemaker Paroxysmal Atrial Fibrillation - on Coumadin, monitor INR with goal of 2-3 - continue Lopressor - currently in NSR HTN - blood pressure stable, continue home medications DVT ppx - Coumadin FULL CODE Total time spent on discharge = 45 minutes This includes examination of the patient, discharge planning, medication reconciliation, and communication with other providers. Discharge Instructions Please follow-up with your primary care doctor, you will get a date and time For your diverticulitis - you will be prescribed Augmentin (antibiotic) - take this for the next 10 days Outpatient follow-up with gastroenterology and a repeat colonoscopy should be done in 6-8 weeks for your urinary retention - you are to keep the Pizano catheter in for the next 7-10 days with an outpatient follow-up with urology for the syncope - please follow-up with PCP and neurology - take Meclizine PRN and stay well hydrated
[2017-06-30] MEDS ORDERED: WARFARIN SOD 1 MG TAB PO SCH (16:00)
== END 2017-06-25 19:59 | disposition home health service (06) | DRG 312 ==
LOC: EDBD 17:29 → C.EDC 17:31 → C.MED 20:51 → ENRESERV 22:08
PROVIDERS: ADMIT Family Medicine; ATTEND Family Medicine
DX: R55 Syncope and collapse (principal); K57.92 Diverticulitis of intestine, part unspecified, without perforation or abscess without bleeding; S00.83XA Contusion of other part of head, initial encounter; I12.9 Hypertensive chronic kidney disease with stage 1 through stage 4 chronic kidney disease, or unspecified chronic kidney disease; N18.3 Chronic kidney disease, stage 3 (moderate); I48.91 Unspecified atrial fibrillation; E78.5 Hyperlipidemia, unspecified; F41.1 Generalized anxiety disorder; E03.9 Hypothyroidism, unspecified; I49.5 Sick sinus syndrome; R33.9 Retention of urine, unspecified; G25.81 Restless legs syndrome; Z79.01 Long term (current) use of anticoagulants; Z79.899 Other long term (current) drug therapy; Z95.0 Presence of cardiac pacemaker; Z88.2 Allergy status to sulfonamides; Z88.7 Allergy status to serum and vaccine; Z88.8 Allergy status to other drugs, medicaments and biological substances; W22.8XXA Striking against or struck by other objects, initial encounter; Y92.000 Kitchen of unspecified non-institutional (private) residence as the place of occurrence of the external cause

== ENCOUNTER 2017-07-05 17:51 | Inpatient (IN) | payer OTHER ==
[~2017-07-05] VITALS: Ht 144.8 cm; Wt 55.2 kg
[~2017-07-05 17:51] MED LIST changes: -ACET-1693 PO; +AMOX500T PO
[2017-07-05] MEDS ORDERED: WARF1TAB6 PO (18:25)
[2017-07-05] MEDS ORDERED: OPTIRAY 320 IV PRN (18:30)
[2017-07-05 18:32] LABS: BASO % 0.4 %; BASO ABS # 0.03 K/uL (0-0.2); EOS % 3.4 %; EOS ABS # 0.24 K/uL (0-0.5); HEMATOCRIT 35.7 % (37-47); HEMOGLOBIN 11.7 g/dL (12.0-16.0); IG# 0.01 K/uL (0.00-0.02); LYMPH ABS # 1.99 K/uL (1.2-3.4); MEAN CELL VOLUME 87.3 fL (80-100); MEAN CORPUSCULAR HEMOGLOBIN 28.6 pg (25-34); MEAN CORPUSCULAR HGB CONC 32.8 g/dl (32-36); MEAN PLATELET VOLUME 10.4 fL (7.4-10.4); MONO % 9.1 %; MONO ABS # 0.65 K/uL (0.11-0.59); NEUT ABS # 4.19 K/uL (1.4-6.5); PLATELET COUNT 251 K/uL (130-400); RED CELL DISTRIBUTION WIDTH SD 48.3 fL (36.4-46.3); WHITE BLOOD COUNT 7.11 K/uL (4.8-10.8)
[2017-07-05] MEDS ORDERED: ONDANSETRON INJ 2 MG/ML 2 ML VIAL IV STA (18:47)
[2017-07-05] MEDS ORDERED: PIPERACILLIN/TAZOBACTAM 4.5 GM/100ML D5W IV STA (18:47)
[2017-07-05 18:50] LABS: ALBUMIN 3.6 gm/dl (3.4-5.0); CREATININE 1.17 mg/dl (0.60-1.20); POTASSIUM 4.1 mmol/L (3.5-5.1)
[2017-07-05 18:53] LABS: TOTAL PROTEIN 7.2 gm/dl (6.4-8.2)
[2017-07-05] MEDS ORDERED: HYDROmorphone INJ 0.5 MG/0.5 ML SYR IV PRN (19:00)
[2017-07-05] MEDS ORDERED: LOPE-5 PO (19:10)
[2017-07-05] MEDS ORDERED: FLM4 PO (19:10)
[2017-07-05] MEDS ORDERED: MTR500 PO (19:10)
[2017-07-05 19:17] LABS: INR 2.6 (0.9-1.1); PTT PATIENT 38.8 SECONDS (21.0-31.0)
[2017-07-05] MEDS ORDERED: ROPI0.5T15 PO (19:27)
[2017-07-05] MEDS ORDERED: PROB1TAB16 (19:27)
--- NOTE | 2017-07-05 20:09 | EMERGENCY ROOM VISIT NOTE ---
History Report prepared by Dean: Ace Harrell Under the Supervision of: Dr. Anton Downs M.D. First contact with patient: 18:05 Chief Complaint: SYNCOPE (NEAR SYNCOPE) Stated Complaint: ABD PAIN Nursing Triage Summary: presents to ED via EMS [facility] for going pain from diverticulitis - currently being treated with flagyl - admitted 2 weeks ago at [facility] and recieved this diagnosis While at pcp- when performing the abdominal assessment patient had "syncopal episode" on exam table. did not fall, just rested her head back for 1-2 seconds. Patient states she felt like "everyone was really far away when i woke up" alert and oriented in ED Rating abdominal pain 8/10 in bilateral lower quadrants History of Present Illness The patient is an 87 year old female who presents to the Emergency Room via EMS with complaints of a syncopal episode that occurred prior to arrival this afternoon. She states that she was at her [facility] primary care physician's office for ongoing pain from diverticulitis, and when she was having the abdominal assessment performed, she was told that she rested her head back for 1 to 2 seconds on the exam table. The patient states that she passed out due to the pain. The patient says that she did not fall. She notes that she was hospitalized here 2 weeks ago and was diagnosed with diverticulitis at that time. She is currently on Flagyl and Doxycycline for this. She currently rates her lower abdominal pain as a 10 out of 10 in severity. She states that she gets nauseous from the diverticulitis. She adds that she has neck pain with movement, but she is not sure when that started. Pt denies headache, fevers, chills, diaphoresis, visual changes, chest pain, breathing difficulties, vomiting, back pain, melena, hematochezia, urinary symptoms, numbness, weakness , lymphadenopathy, rash, or other complaints. Source of History: patient Onset: [employer] this afternoon Position: other (global) Symptom Intensity: 1 to 2 seconds Quality: other (syncope) Timing: other (episode) Associated Symptoms: + LOC, + neck pain, + nausea, + abdominal pain Review of Systems See HPI for pertinent positives and negatives. A total of ten systems were reviewed and were otherwise negative. Past Medical & Surgical Medical Problems: (1) Atrial fibrillation (2) CKD (chronic kidney disease) (3) CKD (chronic kidney disease), stage III (4) Dyslipidemia (5) HTN (hypertension) (6) Pacemaker (7) RLS (restless legs syndrome) (8) Rosacea (9) SVT (supraventricular tachycardia) (10) Syncope and collapse (11) Tachy-enid syndrome Surgical Problems: (1) History of carpal tunnel surgery (2) History of cataract surgery (3) History of hysterectomy (4) Post-operative state Family History Diabetes mellitus Heart disease Hypertension Social History Smoking Status: Never Smoker Alcohol Use: none Drug Use: none Marital Status: Housing Status: lives with family Occupation Status: retired Current/Historical Medications Scheduled Citalopram Hydrobromide (Citalopram Hydrobromide), 10 MG PO HS Doxycycline Hyclate (Doxycycline Hyclate), 50 MG PO QAM Levothyroxine Sodium (Synthroid), 50 MCG PO QPM Metoprolol Tartrate (Lopressor) (Lopressor), 25 MG PO BID Metronidazole (Metronidazole), 500 MG PO BID Probiotic Product (Probiotic), 2 TABS DAILY Ropinirole (Requip), 0.5 MG PO QAM Ropinirole (Requip), 1 MG PO BID Rosuvastatin Calcium (Crestor), 10 MG PO PM Tamsulosin HCl (Tamsulosin HCl), 0.4 MG PO QPM Warfarin Sod (Jantoven), 1 MG PO 5XWK Warfarin Sodium (Warfarin Sodium), 2 MG PO 2XWK Scheduled PRN Acetaminophen Tab (Tylenol), 650 MG PO Q6H PRN for Pain Clobetasol Propionate (Temovate), 1 APPLN TOP BID PRN for Rash,Itching and Flares Lactic Acid (Ammonium Lactate) (Ammonium Lactate), 1 APPLN TOP BID PRN for Affected Area(s) Levocetirizine Dihydrochloride (Levocetirizine Dihydrochl), 5 MG PO DAILY PRN for Allergic Reaction Loperamide Hcl (Imodium), 2 MG PO UD PRN for Diarrhea Meclizine HCl (Meclizine HCl), 12.5 MG PO UD PRN for Dizziness or Vertigo Metronidazole (Topical) (Metrocream), 1 APPLN TOP DAILY PRN for UNDECIDED Nitroglycerin (Nitrostat), 0.4 MG UT UD PRN for Chest Pain Ondansetron (Ondansetron HCl), 8 MG PO Q8H PRN for Nausea Ropinirole (Requip), 0.5 MG PO BID PRN for Allergies Coded Allergies: Adhesives (Verified Allergy, Unknown, ADHESIVE TAPE, 12/31/15) Ciprofloxacin (Verified Allergy, Unknown, RASH, 06/24/17) Conjugated Estrogens (Verified Allergy, Unknown, SEVERE RASH, PAINFUL FROM VAGINAL CREAM, 12/31/15) Sulfa Antibiotics (Verified Allergy, Unknown, HIVES, RASH, 12/31/15) Tetanus Toxoid (Verified Allergy, Unknown, UNKNOWN, 12/31/15) Physical Exam Vital Signs Date Time Temp Pulse Resp B/P (MAP) Pulse Ox O2 Delivery O2 Flow Rate FiO2 07/05/17 23:50 64 18 104/47 94 Room Air 07/05/17 22:33 71 20 106/63 99 Room Air 07/05/17 22:12 66 07/05/17 21:19 65 18 129/73 96 Room Air 07/05/17 19:12 63 18 156/69 95 Room Air 07/05/17 18:07 37.1 78 18 180/96 100 Room Air 07/05/17 18:00 77 Physical Exam GENERAL: Awake, alert, very uncomfortable-appearing, in no distress HENT: Normocephalic, atraumatic. Oropharynx unremarkable. EYES: Normal conjunctiva. Sclera non-icteric. NECK: Supple. No nuchal rigidity. FROM. No masses. RESPIRATORY: Clear to auscultation. No wheezes. No rales. Normal respiratory effort. CARDIAC: Normal rate. Normal rhythm. No murmurs. No rubs. Extremities warm and well perfused. Pulses equal. No JVD. GI: Mildly distended lower abdomen with bilateral lower quadrant tenderness, with a bit of rebound, and guarding. RECTAL: Deferred. MUSCULOSKELETAL: Atraumatic. Chest examination reveals no tenderness. The back is symmetrical on inspection without obvious abnormality. There is no CVA tenderness to palpation. No joint edema. LOWER EXTREMITIES: Calves are equal size bilaterally and non-tender. No edema. No discoloration. NEURO: Normal sensorium. No sensory or motor deficits noted. SKIN: No rash or jaundice noted. Medical Decision & Procedures ER Provider Diagnostic Interpretation: CT: Radiology results as stated below per my review and radiologist interpretation ABD/PELVIS IV AND ORAL CONT CT DOSE: 268.82 mGy.cm HISTORY: Pelvic pain Eval for worsening diverticulitis TECHNIQUE: Multiaxial CT images of the abdomen and pelvis were performed following the use of intravenous and oral contrast. A dose lowering technique was utilized adhering to the principles of ALARA. COMPARISON STUDY: 06/23/2017 FINDINGS: Lung bases are clear. Liver enhances uniformly. Slight gallbladder distention. Kidneys negative for hydronephrosis. Pancreas is uniform. Bowel pattern within the abdomen is nonobstructive. Findings of the proximal to mid sigmoid diverticulitis are personally progressive. Bowel wall thickening is slightly increased. Pericolonic infiltrative change is stable. There is no evidence for extraluminal abscess or collection. There are no obstructive changes. Bladder is moderately distended. There is trace amount of air within the bladder presumably from prior catheterization procedure. IMPRESSION: 1. Acute proximal to mid sigmoid diverticulitis 2. This is slightly progressive in terms of severity and wall thickening compared to the prior study. 3. The study remains negative for abscess collection or obstruction. The above report was generated using voice recognition software. It may contain grammatical, syntax or spelling errors. Electronically signed by: Masood Wild M.D. 07/05/2017 9:41 PM Dictated Date/Time: 07/05/2017 9:38 PM Laboratory Results 07/05/17 18:25 Red Blood Count 4.09, Mean Corpuscular Volume 87.3, Mean Corpuscular Hemoglobin 28.6, Mean Corpuscular Hemoglobin Concent 32.8, Mean Platelet Volume 10.4, Neutrophils (%) (Auto) 59.0, Lymphocytes (%) (Auto) 28.0, Monocytes (%) (Auto) 9.1, Eosinophils (%) (Auto) 3.4, Basophils (%) (Auto) 0.4, Neutrophils # (Auto) 4.19, Lymphocytes # (Auto) 1.99, Monocytes # (Auto) 0.65, Eosinophils # (Auto) 0.24, Basophils # (Auto) 0.03 07/05/17 18:25 Test 07/05/17 18:25 07/05/17 18:40 White Blood Count 7.11 K/uL (4.8-10.8) Red Blood Count 4.09 M/uL (4.2-5.4) Hemoglobin 11.7 g/dL (12.0-16.0) Hematocrit 35.7 % (37-47) Mean Corpuscular Volume 87.3 fL (80-100) Mean Corpuscular Hemoglobin 28.6 pg (25-34) Mean Corpuscular Hemoglobin Concent 32.8 g/dl (32-36) Platelet Count 251 K/uL (130-400) Mean Platelet Volume 10.4 fL (7.4-10.4) Neutrophils (%) (Auto) 59.0 % Lymphocytes (%) (Auto) 28.0 % Monocytes (%) (Auto) 9.1 % Eosinophils (%) (Auto) 3.4 % Basophils (%) (Auto) 0.4 % Neutrophils # (Auto) 4.19 K/uL (1.4-6.5) Lymphocytes # (Auto) 1.99 K/uL (1.2-3.4) Monocytes # (Auto) 0.65 K/uL (0.11-0.59) Eosinophils # (Auto) 0.24 K/uL (0-0.5) Basophils # (Auto) 0.03 K/uL (0-0.2) RDW Standard Deviation 48.3 fL (36.4-46.3) RDW Coefficient of Variation 15.0 % (11.5-14.5) Immature Granulocyte % (Auto) 0.1 % Immature Granulocyte # (Auto) 0.01 K/uL (0.00-0.02) Prothrombin Time 27.2 SECONDS (9.0-12.0) Prothromb Time International Ratio 2.6 (0.9-1.1) Activated Partial Thromboplast Time 38.8 SECONDS (21.0-31.0) Partial Thromboplastin Ratio 1.5 Anion Gap 9.0 mmol/L (3-11) Est Creatinine Clear Calc Drug Dose 25.5 ml/min Estimated GFR () 48.9 Estimated GFR (Non- 42.2 BUN/Creatinine Ratio 14.4 (10-20) Calcium Level 9.0 mg/dl (8.5-10.1) Magnesium Level 2.2 mg/dl (1.8-2.4) Total Bilirubin 0.6 mg/dl (0.2-1) Direct Bilirubin 0.1 mg/dl (0-0.2) Aspartate Amino Transf (AST/SGOT) 25 U/L (15-37) Alanine Aminotransferase (ALT/SGPT) 18 U/L (12-78) Alkaline Phosphatase 82 U/L (45-117) Total Protein 7.2 gm/dl (6.4-8.2) Albumin 3.6 gm/dl (3.4-5.0) Lipase 148 U/L (73-393) Urine Color YELLOW Urine Appearance CLEAR (CLEAR) Urine pH 7.0 (4.5-7.5) Urine Specific [place] 1.009 (1.000-1.030) Urine Protein NEG (NEG) Urine Glucose (UA) NEG (NEG) Urine Ketones NEG (NEG) Urine Occult Blood NEG (NEG) Urine Nitrite NEG (NEG) Urine Bilirubin NEG (NEG) Urine Urobilinogen NEG (NEG) Urine Leukocyte Esterase NEG (NEG) Laboratory results reviewed by me Medications Administered Medications (Trade) Dose Ordered Sig/Astrid Route Start Time Stop Time Status Last Admin Dose Admin Hydromorphone HCl (Dilaudid Inj) 0.5 mg Q15M PRN IV 07/05/17 19:00 07/19/17 18:59 07/05/17 19:06 0.5 MG Ondansetron HCl (Zofran Inj) 4 mg NOW STAT IV 07/05/17 18:47 07/05/17 18:50 DC 07/05/17 19:06 4 MG Piperacillin Sod/ Tazobactam Sod (Zosyn Iv) 4.5 gm NOW STAT IV 07/05/17 18:47 07/05/17 18:50 DC 07/05/17 19:07 4.5 GM Sodium Chloride 1,000 ml @ 75 mls/hr [id number] ONCE IV 07/05/17 22:15 07/06/17 11:34 07/05/17 22:15 75 MLS/HR ECG Per My Interpretation Indication: syncope Rate (beats per minute): 63 Rhythm: other (paced rhythm) Findings: no acute ischemic change, left axis deviation, no ectopy ED Course 1822: The patient was evaluated in room B5. A complete history and physical exam was performed. 1846: Zosyn IV 4.5 gm, Zofran Inj 4 mg IV. 1899: Dilaudid Inj 0.5 mg IV PRN. 2020: I reevaluated and updated the patient. 2211: Upon reexamination, the patient was resting. I discussed the test results and treatment plan with her. The patient will be evaluated for further management. 2214: I discussed the patient with Dr. Wade Herrera deliver driver - he will evaluate the patient for further treatment. Ordered NSS 1000 ml @ 75 mls/hr IV. Medical Decision Prior records/ancillary studies reviewed. Triage Nursing notes reviewed and agree them. The patient's history was concerning for abdominal pain and ongoing treatment for diverticulitis. Differential diagnosis: Etiologies such as perforated viscus, diverticulitis, PUD, biliary pathology, UTI, pancreatitis, obstruction, mesenteric ischemia, aortic pathology, infections, inflammatory bowel disease, renal colic, as well as others were entertained. Physical examination findings: As above. ER treatment provided: IV Zofran IV Zosyn IV Dilaudid On reassessment the patient felt better. Diagnostics interpreted by me: ECG: Paced rhythm The labs revealed an unremarkable CBC and chemistry panel. Imaging studies: CAT scan as above. Progressive diverticulitis. Consultation: A consultation was placed with the hospitalist. The case was discussed and diagnostics were reviewed. The patient was evaluated in the ER for further treatment. Medication Reconcilliation Current Medication List: was personally reviewed by me Blood Pressure Screening Patient's blood pressure: Normal blood pressure Consults Time Called: 2213 Consulting Physician: Dr. Wade Herrera deliver driver Returned Call: 2211 I discussed the patient with Dr. Wade Herrera deliver driver - he will evaluate the patient for further treatment. Impression Primary Impression: Diverticulitis Additional Impression: Failure of outpatient treatment Scribe Attestation The scribe's documentation has been prepared under my direction and personally reviewed by me in its entirety. I confirm that the note above accurately reflects all work, treatment, procedures, and medical decision making performed by me. Departure Information Dispostion Being Evaluated By Hospitalist Referrals Roly Vogel M.D. (PCP) Patient Instructions My [facility] Problem Qualifiers
[2017-07-05] MEDS ORDERED: ACET-1693 PO (21:09)
--- NOTE | 2017-07-05 21:42 | DIAGNOSTIC IMAGING REPORT ---
ABD/PELVIS IV AND ORAL CONT CT DOSE: 268.82 mGy.cm HISTORY: Pelvic pain Eval for worsening diverticulitis TECHNIQUE: Multiaxial CT images of the abdomen and pelvis were performed following the use of intravenous and oral contrast. A dose lowering technique was utilized adhering to the principles of ALARA. COMPARISON STUDY: 06/23/2017 FINDINGS: Lung bases are clear. Liver enhances uniformly. Slight gallbladder distention. Kidneys negative for hydronephrosis. Pancreas is uniform. Bowel pattern within the abdomen is nonobstructive. Findings of the proximal to mid sigmoid diverticulitis are personally progressive. Bowel wall thickening is slightly increased. Pericolonic infiltrative change is stable. There is no evidence for extraluminal abscess or collection. There are no obstructive changes. Bladder is moderately distended. There is trace amount of air within the bladder presumably from prior catheterization procedure. IMPRESSION: 1. Acute proximal to mid sigmoid diverticulitis 2. This is slightly progressive in terms of severity and wall thickening compared to the prior study. 3. The study remains negative for abscess collection or obstruction. The above report was generated using voice recognition software. It may contain grammatical, syntax or spelling errors. Electronically signed by: Masood Wild M.D. 07/05/2017 9:41 PM Dictated Date/Time: 07/05/2017 9:38 PM
[2017-07-05] MEDS ORDERED: SODIUM CHLORIDE 0.9% 1000ML 1,000 ML IV ONE (22:15)
[2017-07-06] VITALS (8 sets, daily range): BP systolic 84–152; BP diastolic 47–76; PULSE 59–71; TEMP 36.6–36.8; O2SAT 94–99; Ht 144.8 cm; Wt 55.2 kg
[2017-07-06] MEDS ORDERED: ROPINIROLE HCL 1 MG TAB PO ONE (02:11)
[2017-07-06] MEDS ORDERED: PROCHLORPERAZINE INJ 5 MG in SYRINGE 4 ML IV PRN (02:15)
[2017-07-06] MEDS ORDERED: ROPINIROLE HCL 0.25 MG TAB PO PRN (02:15)
[2017-07-06] MEDS ORDERED: MoRPHine SULFATE 4 MG/ML 1 ML CARP\\VIAL IV PRN (02:15)
[2017-07-06] MEDS ORDERED: TRAMADOL HCL 50 MG TAB PO PRN (02:15)
[2017-07-06] MEDS ORDERED: PIPERACILL/TAZOBAC CONSULT ACTIVE PRN (02:45)
[2017-07-06 02:48] LABS: BASO % 0.4 %; BASO ABS # 0.03 K/uL (0-0.2); EOS % 3.3 %; EOS ABS # 0.24 K/uL (0-0.5); HEMATOCRIT 30.7 % (37-47); HEMOGLOBIN 10.1 g/dL (12.0-16.0); IG# 0.01 K/uL (0.00-0.02); LYMPH % 23.2 %; LYMPH ABS # 1.71 K/uL (1.2-3.4); MEAN CORPUSCULAR HEMOGLOBIN 28.6 pg (25-34); MEAN CORPUSCULAR HGB CONC 32.9 g/dl (32-36); MEAN PLATELET VOLUME 10.1 fL (7.4-10.4); MONO ABS # 0.96 K/uL (0.11-0.59); NEUT ABS # 4.43 K/uL (1.4-6.5); PLATELET COUNT 243 K/uL (130-400); RED CELL DISTRIBUTION WIDTH CV 15.1 % (11.5-14.5); RED CELL DISTRIBUTION WIDTH SD 47.7 fL (36.4-46.3); WHITE BLOOD COUNT 7.38 K/uL (4.8-10.8)
[2017-07-06 02:58] LABS: INR 2.6 (0.9-1.1)
[2017-07-06 03:05] LABS: CREATININE 1.24 mg/dl (0.60-1.20)
[2017-07-06 03:06] LABS: CALCIUM 8.1 mg/dl (8.5-10.1)
[2017-07-06] MEDS: PIPERACILL/TAZOBAC IV 3.375 GM in D5W 100ML IV SCH ×3 (06:19→21:45)
--- NOTE | 2017-07-06 06:46 | DIAGNOSTIC IMAGING REPORT ---
HEAD WITHOUT CONTRAST (CT) CLINICAL HISTORY: 87 years-old Female with syncope. Acute syncope TECHNIQUE: Multiple axial CT images of the head were obtained without contrast. A dose lowering technique was utilized adhering to the principles of ALARA. CT DOSE: 537.48 mGy.cm COMPARISON: CT head 06/23/2017 FINDINGS: No acute intracranial hemorrhage, midline shift, intracranial mass, hydrocephalus, territorial ischemia or abnormal extra-axial collection. Increased attenuation of the cerebral venous sinuses and arterial structures is likely secondary to recent contrast-enhanced CT exam. Mild to moderate atrophy with ex vacuo ventriculomegaly and chronic microvascular ischemic changes, unchanged. The calvarium is intact. The paranasal sinuses, mastoid air cells, and middle ear cavities are clear. Left codie bullosa. Evidence of prior bilateral cataract repair. IMPRESSION: No acute intracranial abnormality. The above report was generated using voice recognition software. It may contain grammatical, syntax or spelling errors. Electronically signed by: Rodger Duke M.D. 07/06/2017 6:45 AM Dictated Date/Time: 07/06/2017 6:42 AM
[2017-07-06] MEDS: ROPINIROLE HCL 1 MG TAB PO SCH ×2 (08:28→21:14)
[2017-07-06] MEDS ORDERED: PROBIOTIC PRODUCT SCH (09:00)
--- NOTE | 2017-07-06 09:25 | HISTORY & PHYSICAL EXAMINATION ---
DATE OF ADMISSION: 07/06/2017 PRIMARY CARE PHYSICIAN: Dr. Vogel. CHIEF COMPLAINT: Syncope. HISTORY OF PRESENT ILLNESS: History obtained from patient and records. Medical history is significant for recurrent diverticulitis, chronic diastolic heart failure, EF 55%, SSS sp PPM on Coumadin, HTN, chronic anemia (baseline hemoglobin of 10-11) Recent confinement about 2 weeks ago for syncope. No additional workup done due to previous workup completion as per notes. On admission, the patient was found to have diverticulitis on CAT scan. She was discharged on Augmentin. At home, the patient still with lower abdominal discomfort, Nonbloody slimy stools. Started on Flagyl and loperamide outpatient. She had a followup at the PCP's office yesterday. At the clinic, the patient passed out during exam after deep breathing. Patient denies chest pain, shortness of breath. Denies headache. Patient was brought to the Emergency Room. CT of abdomen and pelvis showed acute proximal to mid segment diverticulitis, slightly progressive in severity, no abscess or collection obstruction. Patient was given Zosyn. MEDICAL HISTORY: As above. October 2015, colonoscopy showed multiple large mouth diverticula found in sigmoid colon. There was narrowing of the colon associated with the rectal opening, evidence of diverticular spasm. SURGICAL HISTORY: Carpal tunnel, cataract surgery, hysterectomy, pacemaker. Current/Historical Medications Scheduled Citalopram Hydrobromide (Citalopram Hydrobromide), 10 MG PO HS Doxycycline Hyclate (Doxycycline Hyclate), 50 MG PO QAM Levothyroxine Sodium (Synthroid), 50 MCG PO QPM Metoprolol Tartrate (Lopressor) (Lopressor), 25 MG PO BID Metronidazole (Metronidazole), 500 MG PO BID Probiotic Product (Probiotic), 2 TABS DAILY Ropinirole (Requip), 0.5 MG PO QAM Ropinirole (Requip), 1 MG PO BID Rosuvastatin Calcium (Crestor), 10 MG PO PM Tamsulosin HCl (Tamsulosin HCl), 0.4 MG PO QPM Warfarin Sod (Jantoven), 1 MG PO 5XWK Warfarin Sodium (Warfarin Sodium), 2 MG PO 2XWK Scheduled PRN Acetaminophen Tab (Tylenol), 650 MG PO Q6H PRN for Pain Clobetasol Propionate (Temovate), 1 APPLN TOP BID PRN for Rash,Itching and Flares Lactic Acid (Ammonium Lactate) (Ammonium Lactate), 1 APPLN TOP BID PRN for Affected Area(s) Levocetirizine Dihydrochloride (Levocetirizine Dihydrochl), 5 MG PO DAILY PRN for Allergic Reaction Loperamide Hcl (Imodium), 2 MG PO UD PRN for Diarrhea Meclizine HCl (Meclizine HCl), 12.5 MG PO UD PRN for Dizziness or Vertigo Metronidazole (Topical) (Metrocream), 1 APPLN TOP DAILY PRN for UNDECIDED Nitroglycerin (Nitrostat), 0.4 MG UT UD PRN for Chest Pain Ondansetron (Ondansetron HCl), 8 MG PO Q8H PRN for Nausea Ropinirole (Requip), 0.5 MG PO BID PRN for Allergies Coded Allergies: Adhesives (Verified Allergy, Unknown, ADHESIVE TAPE, 12/31/15) Ciprofloxacin (Verified Allergy, Unknown, RASH, 06/24/17) Conjugated Estrogens (Verified Allergy, Unknown, SEVERE RASH, PAINFUL FROM VAGINAL CREAM, 12/31/15) Sulfa Antibiotics (Verified Allergy, Unknown, HIVES, RASH, 12/31/15) Tetanus Toxoid (Verified Allergy, Unknown, UNKNOWN, 12/31/15) PERSONAL/SOCIAL HISTORY: nonsmoker. No chronic ETOH intake. Lives with daughter. 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 REVIEW OF SYSTEMS: As per HPI. All 10 systems reviewed reviewed, all other ROS negative. PHYSICAL EXAMINATION: VITAL SIGNS: Blood pressure was noted to be 156/69 later 100/50, pulse 90. RR 18 T 37, saturations 95% on room air. GENERAL: Noted to be anxious, in no respiratory distress, looks younger for her stated age. SKIN: Pallor, warm. HEENT: Pale palpebral conjunctivae, no ptosis noted. Dry oral mucosa. NECK: Short, supple. CHEST: Decreased breath sounds, no chest wall tenderness. HEART: Regular rate and rhythm, no murmur. ABDOMEN: hypogastric tenderness, some distention. EXTREMITIES: Minimal LE edema noted. No tenderness, no gross deformities. NEUROLOGIC: Coherent, no gross focality. Legs episodically restless LABORATORY DATA: Hemoglobin is 11.7, hematocrit 35.7, white cell count 9.11, platelets 251. Sodium 134, potassium 4.1, chloride 100, CO2 of 26, BUN 17, creatinine 0.16, glucose 90. INR 2.6. CT abdomen pelvis as per HPI CT of head, initial read, no acute pathology. EKG as per my interpretation, paced rhythm. ASSESSMENT: 1. Recurrent syncope possible orthostasis from persistent diverticulitis, ro cdif (worsening diverticulitis on CT, failed outpatient Rx), no sepsis rule out arrhythmia as etiology of syncope, hx SSS sp PPM on Coumadin. INR tx 2. Hypertension, BP on the lower side 3. Chronic anemia, hemoglobin at baseline. PLAN: PCU Check orthostatic vitals. PM interrogation IV fluids. Zosyn. Appropriate to hold home BB for now given borderline BP, may need to resume BB at a lower dose Clear liquids for now stool cdif GI consult RE worsening diverticulitis. DVT prophylaxis Coumadin if INR 2-3 Full code. MTDD
--- NOTE | 2017-07-06 11:11 | Gastrointestinal Consultation ---
Gastrointestinal Consultation Date of Consultation: July 06, 2017 Attending Physician: Mahendra Consulting Physician: Tj Reason for Consultation: worsening diverticulitis History of Present Illness Patient is a 87 year old female w/ history of SVT, tachybrady syndrome s/p pacemaker placement, HTN, Afib and others listed below who presented through the ED with worsening ABD pain. Of note pt was recently admitted for syncope and RLQ pain and treated for uncomplicated acute diverticulitis. She was treated w/ IV ABX during admission and transitioned to PO Augmentin as discharge. This causes diarrhea, abd pain. She saw her family doctor who d/c Augmentin and started flagyl alone as she has fluoroquinolone allergy. She noted worsening RLQ pain on Wednesday. Constant, sharp. No associated nausea, vomiting, diarrhea, constipation. No black or bloody stools. In the ED, repeat CT w/ worsening inflammation but no evidence of perf, abscess or fistula. Notes feels better with IV ABX. Denies fever, chills, CP, SOB. Colon 2016: severe diverticulosis fo sigmoid colon, and narrowing of diverticular opening and spasms. Procedure was aborted due to the multiple diverticuli and restricted mobility of the colon. CT 07/05/17: Acute proximal to mid sigmoid diverticulitisThis is slightly progressive in terms of severity and wall thickening compared to the prior study. The study remains negative for abscess collection or obstruction. Ct 06/23/17: Mild wall thickening and pericolonic infiltration at the junction of the descending colon and sigmoid colon. No abscess or free air. This favors diverticulitis although a nonspecific colitis could appear similar. Similar but more severe findings were shown on multiple previous studies at this site. Pocket of gas which appears to be adjacent to the wall of the colon does not reflect free air. It's unclear whether this represents a diverticulum or contained extraluminal gas. Follow-up colonoscopy once symptoms resolve might be considered to exclude an underlying lesion although no mass identified on this study. No acute traumatic findings within the abdomen or pelvis on unenhanced exam. Marked distention of the bladder. Past Medical/Surgical History Medical Problems: (1) Anemia Status: Acute (2) Degenerative joint disease of knee, right Status: Acute (3) Diverticulitis Status: Acute (4) Failure of outpatient treatment Status: Acute (5) Subtherapeutic international normalized ratio (INR) Status: Acute (6) Syncope Status: Acute (7) Syncope Status: Acute (8) Urinary retention Status: Acute Past Medical History: atopic dermatitis, ROMULO, rosacea, RLS, SVT, tachybrady syndrome, s/p pacemaker placement, HLD, OP, neurofibroma, HTN, hypothyroidism, Afib, HTN, diverticulitis Past Surgical History: carpal tunnel surgery, cataract surgeries, total hysterectomy Family History Diabetes mellitus Heart disease Hypertension Social History Smoking Status: Never Smoker Alcohol Use: none Drug Use: none Marital Status: Housing Status: lives with family Occupation Status: retired Allergies Coded Allergies: Adhesives (Verified Allergy, Unknown, ADHESIVE TAPE, 12/31/15) Ciprofloxacin (Verified Allergy, Unknown, RASH, 06/24/17) Conjugated Estrogens (Verified Allergy, Unknown, SEVERE RASH, PAINFUL FROM VAGINAL CREAM, 12/31/15) Sulfa Antibiotics (Verified Allergy, Unknown, HIVES, RASH, 12/31/15) Tetanus Toxoid (Verified Allergy, Unknown, UNKNOWN, 12/31/15) Current Medications Home Meds and Scripts Medications Dose Route/Sig Max Daily Dose Days Date Category Dose Instructions Requip (Ropinirole HCl) 0.5 Mg Tab 0.5 Mg PO BID PRN 07/05/17 Reported Probiotic (Probiotic Product) 1 Tab Tab 2 Tabs DAILY 07/05/17 Reported Metronidazole 500 Mg Tab 500 Mg PO BID 07/05/17 Reported Tamsulosin HCl 0.4 Mg Cap 0.4 Mg PO QPM 07/05/17 Reported Jantoven (Warfarin Sodium) 1 Mg Tab 1 Mg PO 5XWK 06/23/17 Reported TAKE ON WED, , WED, , SAT Tylenol (Acetaminophen) 325 Mg Tab 650 Mg PO Q6H PRN 03/27/17 Reported Ondansetron HCl (Ondansetron) 8 Mg Tab 8 Mg PO Q8H PRN 11/25/16 Reported Lopressor (Metoprolol Tartrate) 50 Mg Tab 25 Mg PO BID 11/25/16 Reported Warfarin Sodium 1 Mg Tab 2 Mg PO 2XWK 11/25/16 Reported TAKE 2 MG MON & FRI OR OTHERWISE DIRECETED TO TAKE BY ANTICOAGULATION CLINIC/MD Meclizine HCl 25 Mg Tab 12.5 Mg PO UD PRN 11/25/16 Reported TAKE NEEDED FOR DIZZINESS/VERTIGO Doxycycline Hyclate 50 Mg Cap 50 Mg PO QAM 11/25/16 Reported Crestor (Rosuvastatin Calcium) 10 Mg Tab 10 Mg PO PM 12/31/15 Reported Synthroid (Levothyroxine Sodium) 50 Mcg Tab 50 Mcg PO QPM 12/31/15 Reported Levocetirizine Dihydrochl (Levocetirizine Dihydrochloride) 5 Mg Tab 5 Mg PO DAILY PRN 12/10/15 Reported Metrocream (Metronidazole (Topical)) 0.75 % Cre 1 Appln TOP DAILY PRN 12/10/15 Reported APPLY TO FACE DIRECTED Ammonium Lactate (Lactic Acid (Ammonium Lactate)) 12 % Lot 1 Appln TOP BID PRN 12/10/15 Reported Imodium (Loperamide HCl) 2 Mg Cap 2 Mg PO UD PRN 12/10/15 Reported TAKE ONE CAPSULE AFTER EACH LOOSE BOWEL MOVEMENT. DO NOT EXCEED MORE THAN 8 CAPSULES DAILY. Temovate (Clobetasol Propionate) 0.05 % Cre 1 Appln TOP BID PRN 12/10/15 Reported Requip (Ropinirole HCl) 1 Mg Tab 1 Mg PO BID 10/30/15 Reported TAKE THIS MEDICATION WITH EVENING MEAL AND AT BEDTIME Requip (Ropinirole HCl) 0.5 Mg Tab 0.5 Mg PO QAM 10/30/15 Reported TAKE ONE TABLET EVERY MORNING AND AN ADDITONAL TABLET DURING THE DAY IF NEEDED Citalopram Hydrobromide 10 Mg Tab 10 Mg PO HS 10/30/15 Reported Nitrostat (Nitroglycerin) 0.4 Mg Tab 0.4 Mg UT UD PRN 05/29/[address] ONE TABLET UNDER THE TONGUE Review of Systems Constitutional: No fever, No chills Respiratory: No cough, No shortness of breath Cardiac: No chest pain, No edema Abdomen: + pain, No nausea, No vomiting, No diarrhea, No constipation, No GI bleeding Physical Exam Date Time Temp Pulse Resp B/P (MAP) Pulse Ox O2 Delivery O2 Flow Rate FiO2 07/06/17 08:00 Room Air 07/06/17 07:44 36.6 61 16 125/67 (86) 94 Room Air 07/06/17 04:09 36.8 70 18 111/65 (80) 94 Room Air 71 84/47 (59) 71 101/67 (78) 07/06/17 04:00 Room Air 07/06/17 01:44 63 20 99/73 98 Room Air 07/06/17 00:50 68 18 100/71 96 Room Air 07/06/17 00:35 65 20 114/64 98 Room Air 07/06/17 00:00 36.8 66 17 135/64 Room Air 07/05/17 23:50 64 18 104/47 94 Room Air 07/05/17 22:33 71 20 106/63 99 Room Air 07/05/17 22:12 66 07/05/17 21:19 65 18 129/73 96 Room Air 07/05/17 19:12 63 18 156/69 95 Room Air 07/05/17 18:07 37.1 78 18 180/96 100 Room Air 07/05/17 18:00 77 General Appearance: no apparent distress Eyes: PERRL ENT: hearing grossly normal Neck: supple, trachea midline Respiratory/Chest: lungs clear, normal breath sounds Cardiovascular: regular rate, rhythm, no JVD, no murmur Abdomen: normal bowel sounds, non tender, soft Neurologic/Psych: alert, normal mood/affect, oriented x 3 Skin: normal color, no jaundice Laboratory Results Last 24 Hours Test 07/05/17 18:25 07/05/17 18:40 07/06/17 02:32 White Blood Count 7.11 K/uL 7.38 K/uL Red Blood Count 4.09 M/uL 3.53 M/uL Hemoglobin 11.7 g/dL 10.1 g/dL Hematocrit 35.7 % 30.7 % Mean Corpuscular Volume 87.3 fL 87.0 fL Mean Corpuscular Hemoglobin 28.6 pg 28.6 pg Mean Corpuscular Hemoglobin Concent 32.8 g/dl 32.9 g/dl Platelet Count 251 K/uL 243 K/uL Mean Platelet Volume 10.4 fL 10.1 fL Neutrophils (%) (Auto) 59.0 % 60.0 % Lymphocytes (%) (Auto) 28.0 % 23.2 % Monocytes (%) (Auto) 9.1 % 13.0 % Eosinophils (%) (Auto) 3.4 % 3.3 % Basophils (%) (Auto) 0.4 % 0.4 % Neutrophils # (Auto) 4.19 K/uL 4.43 K/uL Lymphocytes # (Auto) 1.99 K/uL 1.71 K/uL Monocytes # (Auto) 0.65 K/uL 0.96 K/uL Eosinophils # (Auto) 0.24 K/uL 0.24 K/uL Basophils # (Auto) 0.03 K/uL 0.03 K/uL RDW Standard Deviation 48.3 fL 47.7 fL RDW Coefficient of Variation 15.0 % 15.1 % Immature Granulocyte % (Auto) 0.1 % 0.1 % Immature Granulocyte # (Auto) 0.01 K/uL 0.01 K/uL Prothrombin Time 27.2 SECONDS 26.8 SECONDS Prothromb Time International Ratio 2.6 2.6 Activated Partial Thromboplast Time 38.8 SECONDS Partial Thromboplastin Ratio 1.5 Sodium Level 134 mmol/L 135 mmol/L Potassium Level 4.1 mmol/L 4.0 mmol/L Chloride Level 100 mmol/L 103 mmol/L Carbon Dioxide Level 26 mmol/L 26 mmol/L Anion Gap 9.0 mmol/L 6.0 mmol/L Blood Urea Nitrogen 17 mg/dl 15 mg/dl Creatinine 1.17 mg/dl 1.24 mg/dl Est Creatinine Clear Calc Drug Dose 25.5 ml/min 23.4 ml/min Estimated GFR () 48.9 45.5 Estimated GFR (Non- 42.2 39.3 BUN/Creatinine Ratio 14.4 12.4 Random Glucose 90 mg/dl 83 mg/dl Calcium Level 9.0 mg/dl 8.1 mg/dl Magnesium Level 2.2 mg/dl Total Bilirubin 0.6 mg/dl Direct Bilirubin 0.1 mg/dl Aspartate Amino Transf (AST/SGOT) 25 U/L Alanine Aminotransferase (ALT/SGPT) 18 U/L Alkaline Phosphatase 82 U/L Total Protein 7.2 gm/dl Albumin 3.6 gm/dl Lipase 148 U/L Urine Color YELLOW Urine Appearance CLEAR Urine pH 7.0 Urine Specific [place] 1.009 Urine Protein NEG Urine Glucose (UA) NEG Urine Ketones NEG Urine Occult Blood NEG Urine Nitrite NEG Urine Bilirubin NEG Urine Urobilinogen NEG Urine Leukocyte Esterase NEG Lactic Acid Level 0.9 mmol/L Troponin I < 0.015 ng/ml Impression Patient is a 87 year old female w/ readmission for worsening diverticulitis now improving on IV ABX. Ct w/o evidence of abscess, perforation, fistula. She has history of diverticulitis and most recent colonoscopy in 2016 who was aborted due to restricted mobility. Plan - General surgery consultation - Clear liquids - Continue IV ABX as prescribed - No role for colonoscopy as her last evaluation was aborted - GI to sign off. Please call with any questions or concerns. Late entry: Patient was seen and examined on 07/06 with SHAWN Hernandez whose note reflects our findings and plan.
--- NOTE | 2017-07-06 11:43 | Progress Note ---
Subjective Date of Service: July 06, 2017. Subjective Pt evaluation today including: conversation w/ patient, physical exam, lab review, review of studies, review of inpatient medication list Saw/examined the patient in room 285 +abdominal pain, +diarrhea persists has had one syncopal episode since being discharged previously Problem List Medical Problems: (1) Anemia Status: Acute (2) Degenerative joint disease of knee, right Status: Acute (3) Diverticulitis Status: Acute (4) Failure of outpatient treatment Status: Acute (5) Subtherapeutic international normalized ratio (INR) Status: Acute (6) Syncope Status: Acute (7) Syncope Status: Acute (8) Urinary retention Status: Acute Review of Systems Constitutional: + weakness, No fever, No chills Respiratory: No shortness of breath Cardiac: No chest pain Abdomen: + pain, + diarrhea, No nausea, No vomiting, No constipation, No GI bleeding Heme: No abnormal bleeding/bruising Medications Current Inpatient Medications Medications (Trade) Dose Ordered Sig/Astrid Route Start Time Stop Time Status Last Admin Dose Admin Ioversol (Optiray 320) 100 ml UD PRN IV 07/05/17 18:30 07/09/17 18:29 Sodium Chloride 1,000 ml @ 75 mls/hr [id number] ONCE IV 07/05/17 22:15 07/06/17 11:34 07/05/17 22:15 75 MLS/HR Acetaminophen (Tylenol Tab) 650 mg Q4H PRN PO 07/06/17 02:15 08/05/17 02:14 Levothyroxine Sodium (Synthroid Tab) 50 mcg QPM PO 07/06/17 21:00 08/05/17 20:59 Ropinirole HCl (Requip Tab) 0.5 mg BID PRN PO 07/06/17 02:15 08/05/17 02:14 Ropinirole HCl (Requip Tab) 1 mg BID PO 07/06/17 09:00 08/05/17 08:59 07/06/17 08:28 1 MG Rosuvastatin Calcium (Crestor Tab) 10 mg PM PO 07/06/17 21:00 08/05/17 20:59 Tamsulosin HCl (Flomax Cap) 0.4 mg QPM PO 07/06/17 21:00 08/05/17 20:59 Citalopram Hydrobromide (celeXA TAB) 10 mg HS PO 07/06/17 21:00 08/05/17 20:59 Miscellaneous Information (Order Awaiting Action) 1 ea QS N/A 07/06/17 08:00 08/05/17 07:59 Prochlorperazine Edisylate 5 mg/ Syringe 5 ml @ 5 mls/min Q6H PRN IV 07/06/17 02:15 08/05/17 02:14 Tramadol HCl (Ultram Tab) not relieved by tylenol @ Q6H PRN PO 07/06/17 02:15 08/05/17 02:14 07/06/17 03:05 50 MG Morphine Sulfate (MoRPHine SULFATE INJ) 2 mg Q3H PRN IV 07/06/17 02:15 07/20/17 02:14 Miscellaneous Information (Consult) 1 ea UD PRN N/A 07/06/17 02:45 08/05/17 02:44 Piperacillin Sod/ Tazobactam Sod 3.375 gm/Dextrose 115 ml @ 28.75 mls/ hr Q8H IV 07/06/17 06:00 07/16/17 05:59 07/06/17 06:19 28.75 MLS/HR Objective Vital Signs Date Time Temp Pulse Resp B/P (MAP) Pulse Ox O2 Delivery O2 Flow Rate FiO2 07/06/17 08:00 Room Air 07/06/17 07:44 36.6 61 16 125/67 (86) 94 Room Air 07/06/17 04:09 36.8 70 18 111/65 (80) 94 Room Air 71 84/47 (59) 71 101/67 (78) 07/06/17 04:00 Room Air 07/06/17 01:44 63 20 99/73 98 Room Air 07/06/17 00:50 68 18 100/71 96 Room Air 07/06/17 00:35 65 20 114/64 98 Room Air 07/06/17 00:00 36.8 66 17 135/64 Room Air 07/05/17 23:50 64 18 104/47 94 Room Air 07/05/17 22:33 71 20 106/63 99 Room Air 07/05/17 22:12 66 07/05/17 21:19 65 18 129/73 96 Room Air 07/05/17 19:12 63 18 156/69 95 Room Air 07/05/17 18:07 37.1 78 18 180/96 100 Room Air 07/05/17 18:00 77 Physical Exam General Appearance: + mild distress Respiratory/Chest: chest non-tender, lungs clear, normal breath sounds, no respiratory distress, no accessory muscle use Cardiovascular: regular rate, rhythm, no edema, no murmur Abdomen: soft, + abnormal bowel sounds, + tenderness Extremities: normal inspection, no pedal edema Neurologic/Psychiatric: no motor/sensory deficits, alert, normal mood/affect Laboratory Results Last 24 Hours Test 07/05/17 18:25 07/05/17 18:40 07/06/17 02:32 White Blood Count 7.11 K/uL 7.38 K/uL Red Blood Count 4.09 M/uL 3.53 M/uL Hemoglobin 11.7 g/dL 10.1 g/dL Hematocrit 35.7 % 30.7 % Mean Corpuscular Volume 87.3 fL 87.0 fL Mean Corpuscular Hemoglobin 28.6 pg 28.6 pg Mean Corpuscular Hemoglobin Concent 32.8 g/dl 32.9 g/dl Platelet Count 251 K/uL 243 K/uL Mean Platelet Volume 10.4 fL 10.1 fL Neutrophils (%) (Auto) 59.0 % 60.0 % Lymphocytes (%) (Auto) 28.0 % 23.2 % Monocytes (%) (Auto) 9.1 % 13.0 % Eosinophils (%) (Auto) 3.4 % 3.3 % Basophils (%) (Auto) 0.4 % 0.4 % Neutrophils # (Auto) 4.19 K/uL 4.43 K/uL Lymphocytes # (Auto) 1.99 K/uL 1.71 K/uL Monocytes # (Auto) 0.65 K/uL 0.96 K/uL Eosinophils # (Auto) 0.24 K/uL 0.24 K/uL Basophils # (Auto) 0.03 K/uL 0.03 K/uL RDW Standard Deviation 48.3 fL 47.7 fL RDW Coefficient of Variation 15.0 % 15.1 % Immature Granulocyte % (Auto) 0.1 % 0.1 % Immature Granulocyte # (Auto) 0.01 K/uL 0.01 K/uL Prothrombin Time 27.2 SECONDS 26.8 SECONDS Prothromb Time International Ratio 2.6 2.6 Activated Partial Thromboplast Time 38.8 SECONDS Partial Thromboplastin Ratio 1.5 Sodium Level 134 mmol/L 135 mmol/L Potassium Level 4.1 mmol/L 4.0 mmol/L Chloride Level 100 mmol/L 103 mmol/L Carbon Dioxide Level 26 mmol/L 26 mmol/L Anion Gap 9.0 mmol/L 6.0 mmol/L Blood Urea Nitrogen 17 mg/dl 15 mg/dl Creatinine 1.17 mg/dl 1.24 mg/dl Est Creatinine Clear Calc Drug Dose 25.5 ml/min 23.4 ml/min Estimated GFR () 48.9 45.5 Estimated GFR (Non- 42.2 39.3 BUN/Creatinine Ratio 14.4 12.4 Random Glucose 90 mg/dl 83 mg/dl Calcium Level 9.0 mg/dl 8.1 mg/dl Magnesium Level 2.2 mg/dl Total Bilirubin 0.6 mg/dl Direct Bilirubin 0.1 mg/dl Aspartate Amino Transf (AST/SGOT) 25 U/L Alanine Aminotransferase (ALT/SGPT) 18 U/L Alkaline Phosphatase 82 U/L Total Protein 7.2 gm/dl Albumin 3.6 gm/dl Lipase 148 U/L Urine Color YELLOW Urine Appearance CLEAR Urine pH 7.0 Urine Specific [place] 1.009 Urine Protein NEG Urine Glucose (UA) NEG Urine Ketones NEG Urine Occult Blood NEG Urine Nitrite NEG Urine Bilirubin NEG Urine Urobilinogen NEG Urine Leukocyte Esterase NEG Lactic Acid Level 0.9 mmol/L Troponin I < 0.015 ng/ml Assessment and Plan This is an 87 year old female with a past medical history of tachy-enid syndrome s/p permanent pacemaker, paroxysmal atrial fibrillation on long-term anticoagulation, HTN, HLD, CKD stage 3, hypothyroidism, hx. of diverticulitis, hx. of syncope - presents with worsening abdominal pain; recurrent, acute diverticulitis Recurrent, Acute Diverticulitis - CT abdomen - progressive proximal to mid sigmoid diverticulitis - appreciate GI input, at this point, we will consult general surgery due to recurrent nature of diverticulitis - continue Zosyn for now; IVFs Recurrent Syncopal Episodes - pacemaker interrogation - patient has had issues with syncope/loss of consciousness - will consult neurology for further input - continue IVFs and treat diverticulitis Hx. of tachy-enid syndrome s/p permanent pacemaker Paroxysmal A. Fib - continue [id number] - INR goal of 2-3, holding Coumadin for now, awaiting surgery input DVT ppx - Coumadin, INR 2-3 FULL CODE
--- NOTE | 2017-07-06 13:16 | Surgery Consultation ---
Consultation Date of Consultation: July 06, 2017. Attending Physician: Tesfaye Mccray DO Reason for Consultation: Recurrent diverticulitis History of Present Illness Leslie is a pleasant 87 year-old female who presented to emergency room from PCP' s office after syncopal episode in the doctor's office. Leslie was recently admitted to hospital two weeks ago status post a fall and syncopal episode and was found to have abdominal distention and pain in which a CT scan showed acute diverticulitis of the sigmoid colon. She was started on IV antibiotics and then transitioned to oral Augmentin once discharged. Augmentin caused diarrhea so PCP changed to Flagyl as an outpatient however she continued to have pain and diarrhea. Repeat CT scan in the emergency room showed acute proximal and mid sigmoid diverticulitis that is slightly progressive compared to prior study with no evidence of complicated diverticulitis( abscess, perforation, or fistula ). She has history of diverticulitis in 2016 in which she was hospitalized for 15 days. 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 Last had a colonoscopy by Dr. Hughes in 2016 in which the procedure was aborted given amount of diverticulosis in the sigmoid colon and restricted mobility of the colon. She has not had a colonoscopy since. Describes pain in the lower abdomen, more so on the left. Sharp/stabbing in nature with associated abdominal bloating. Per daughter, her mother's abdomen was bloated and firm yesterday on arrival. Softer today. Has passed some gas and stool. Denies of any rectal bleeding or blood in stools. No nausea or vomiting. CT scan Abd/Pelvis: IMPRESSION: 1. Acute proximal to mid sigmoid diverticulitis 2. This is slightly progressive in terms of severity and wall thickening compared to the prior study. 3. The study remains negative for abscess collection or obstruction. Past Medical/Surgical History Past Medical History: (1) Anemia (2) Degenerative joint disease of knee, right (3) Diverticulitis (4) Syncope (5) Tachy-Steven Syndrome (6) Atrial Fibrillation (7) HTN (8) Hyperlipidemia (9) CKD stage 3 Past Surgical History: 1. Hysterectomy Family History Diabetes mellitus Heart disease Hypertension Social History Smoking Status: Never Smoker Drug Use: none Marital Status: Housing Status: lives with family Occupation Status: retired Allergies Coded Allergies: Adhesives (Verified Allergy, Unknown, ADHESIVE TAPE, 12/31/15) Ciprofloxacin (Verified Allergy, Unknown, RASH, 06/24/17) Conjugated Estrogens (Verified Allergy, Unknown, SEVERE RASH, PAINFUL FROM VAGINAL CREAM, 12/31/15) Sulfa Antibiotics (Verified Allergy, Unknown, HIVES, RASH, 12/31/15) Tetanus Toxoid (Verified Allergy, Unknown, UNKNOWN, 12/31/15) Home Medications Scheduled Citalopram Hydrobromide (Citalopram Hydrobromide), 10 MG PO HS Doxycycline Hyclate (Doxycycline Hyclate), 50 MG PO QAM Levothyroxine Sodium (Synthroid), 50 MCG PO QPM Metoprolol Tartrate (Lopressor) (Lopressor), 25 MG PO BID Metronidazole (Metronidazole), 500 MG PO BID Probiotic Product (Probiotic), 2 TABS DAILY Ropinirole (Requip), 0.5 MG PO QAM Ropinirole (Requip), 1 MG PO BID Rosuvastatin Calcium (Crestor), 10 MG PO PM Tamsulosin HCl (Tamsulosin HCl), 0.4 MG PO QPM Warfarin Sod (Jantoven), 1 MG PO [id number] Warfarin Sodium (Warfarin Sodium), 2 MG PO [id number] Scheduled PRN Acetaminophen Tab (Tylenol), 650 MG PO Q6H PRN for Pain Clobetasol Propionate (Temovate), 1 APPLN TOP BID PRN for Rash,Itching and Flares Lactic Acid (Ammonium Lactate) (Ammonium Lactate), 1 APPLN TOP BID PRN for Affected Area(s) Levocetirizine Dihydrochloride (Levocetirizine Dihydrochl), 5 MG PO DAILY PRN for Allergic Reaction Loperamide Hcl (Imodium), 2 MG PO UD PRN for Diarrhea Meclizine HCl (Meclizine HCl), 12.5 MG PO UD PRN for Dizziness or Vertigo Metronidazole (Topical) (Metrocream), 1 APPLN TOP DAILY PRN for UNDECIDED Nitroglycerin (Nitrostat), 0.4 MG UT UD PRN for Chest Pain Ondansetron (Ondansetron HCl), 8 MG PO Q8H PRN for Nausea Ropinirole (Requip), 0.5 MG PO BID PRN for Current Inpatient Medications Current Inpatient Medications Medications (Trade) Dose Ordered Sig/Astrid Route Start Time Stop Time Status Last Admin Dose Admin Ioversol (Optiray 320) 100 ml UD PRN IV 07/05/17 18:30 07/09/17 18:29 Acetaminophen (Tylenol Tab) 650 mg Q4H PRN PO 07/06/17 02:15 08/05/17 02:14 Levothyroxine Sodium (Synthroid Tab) 50 mcg QPM PO 07/06/17 21:00 08/05/17 20:59 Ropinirole HCl (Requip Tab) 0.5 mg BID PRN PO 07/06/17 02:15 08/05/17 02:14 Ropinirole HCl (Requip Tab) 1 mg BID PO 07/06/17 09:00 08/05/17 08:59 07/06/17 08:28 1 MG Rosuvastatin Calcium (Crestor Tab) 10 mg PM PO 07/06/17 21:00 08/05/17 20:59 Tamsulosin HCl (Flomax Cap) 0.4 mg QPM PO 07/06/17 21:00 08/05/17 20:59 Citalopram Hydrobromide (celeXA TAB) 10 mg HS PO 07/06/17 21:00 08/05/17 20:59 Miscellaneous Information (Order Awaiting Action) 1 ea QS N/A 07/06/17 08:00 08/05/17 07:59 Prochlorperazine Edisylate 5 mg/ Syringe 5 ml @ 5 mls/min Q6H PRN IV 07/06/17 02:15 08/05/17 02:14 Tramadol HCl (Ultram Tab) not relieved by tylenol @ Q6H PRN PO 07/06/17 02:15 08/05/17 02:14 07/06/17 03:05 50 MG Morphine Sulfate (MoRPHine SULFATE INJ) 2 mg Q3H PRN IV 07/06/17 02:15 07/20/17 02:14 Miscellaneous Information (Consult) 1 ea UD PRN N/A 07/06/17 02:45 08/05/17 02:44 Piperacillin Sod/ Tazobactam Sod 3.375 gm/Dextrose 115 ml @ 28.75 mls/ hr Q8H IV 07/06/17 06:00 07/16/17 05:59 07/06/17 06:19 28.75 MLS/HR Potassium Chloride/Sodium Chloride 1,000 ml @ 80 mls/hr [id number] IV 07/06/17 11:30 08/05/17 11:29 UNV Metoprolol Tartrate (Lopressor Tab) 25 mg BID PO 07/06/17 21:00 08/05/17 20:59 UNV Review of Systems Constitutional: No fever, No chills, No sweats Respiratory: No shortness of breath Cardiovascular: No chest pain Abdomen: + pain, + nausea, + diarrhea, No vomiting, No constipation, No GI bleeding Genitourinary - Female: No dysuria Endocrine: No fatigue Hematologic / Lymphatic: No abnormal bleeding/bruising Integumentary: No rash Physical Exam Date Time Temp Pulse Resp B/P (MAP) Pulse Ox O2 Delivery O2 Flow Rate FiO2 07/06/17 11:52 36.8 71 18 107/62 (77) 96 Room Air 07/06/17 08:00 Room Air 07/06/17 07:44 36.6 61 16 125/67 (86) 94 Room Air 07/06/17 04:09 36.8 70 18 111/65 (80) 94 Room Air 71 84/47 (59) 71 101/67 (78) 07/06/17 04:00 Room Air 07/06/17 01:44 63 20 99/73 98 Room Air 07/06/17 00:50 68 18 100/71 96 Room Air 07/06/17 00:35 65 20 114/64 98 Room Air 07/06/17 00:00 36.8 66 17 135/64 Room Air 07/05/17 23:50 64 18 104/47 94 Room Air 07/05/17 22:33 71 20 106/63 99 Room Air 07/05/17 22:12 66 07/05/17 21:19 65 18 129/73 96 Room Air 07/05/17 19:12 63 18 156/69 95 Room Air 07/05/17 18:07 37.1 78 18 180/96 100 Room Air 07/05/17 18:00 77 General Appearance: WD/WN, no apparent distress Head: normocephalic, atraumatic Eyes: sclerae normal ENT: hearing grossly normal Neck: trachea midline Respiratory/Chest: lungs clear, normal breath sounds, no respiratory distress, no accessory muscle use Cardiovascular: regular rate, rhythm, no murmur Abdomen/GI: soft, no organomegaly, no pulsatile mass, + tenderness (In the LLQ and the suprapubic area, voluntary guarding, no rebound, rigidity, or peritonitis), + distended Extremities/Musculoskelatal: no pedal edema Neurologic/Psych: alert, normal mood/affect, oriented x 3 Skin: normal color, warm/dry, no rash Laboratory Results Last 24 Hours Test 07/05/17 18:25 07/05/17 18:40 07/06/17 02:32 White Blood Count 7.11 K/uL 7.38 K/uL Red Blood Count 4.09 M/uL 3.53 M/uL Hemoglobin 11.7 g/dL 10.1 g/dL Hematocrit 35.7 % 30.7 % Mean Corpuscular Volume 87.3 fL 87.0 fL Mean Corpuscular Hemoglobin 28.6 pg 28.6 pg Mean Corpuscular Hemoglobin Concent 32.8 g/dl 32.9 g/dl Platelet Count 251 K/uL 243 K/uL Mean Platelet Volume 10.4 fL 10.1 fL Neutrophils (%) (Auto) 59.0 % 60.0 % Lymphocytes (%) (Auto) 28.0 % 23.2 % Monocytes (%) (Auto) 9.1 % 13.0 % Eosinophils (%) (Auto) 3.4 % 3.3 % Basophils (%) (Auto) 0.4 % 0.4 % Neutrophils # (Auto) 4.19 K/uL 4.43 K/uL Lymphocytes # (Auto) 1.99 K/uL 1.71 K/uL Monocytes # (Auto) 0.65 K/uL 0.96 K/uL Eosinophils # (Auto) 0.24 K/uL 0.24 K/uL Basophils # (Auto) 0.03 K/uL 0.03 K/uL RDW Standard Deviation 48.3 fL 47.7 fL RDW Coefficient of Variation 15.0 % 15.1 % Immature Granulocyte % (Auto) 0.1 % 0.1 % Immature Granulocyte # (Auto) 0.01 K/uL 0.01 K/uL Prothrombin Time 27.2 SECONDS 26.8 SECONDS Prothromb Time International Ratio 2.6 2.6 Activated Partial Thromboplast Time 38.8 SECONDS Partial Thromboplastin Ratio 1.5 Sodium Level 134 mmol/L 135 mmol/L Potassium Level 4.1 mmol/L 4.0 mmol/L Chloride Level 100 mmol/L 103 mmol/L Carbon Dioxide Level 26 mmol/L 26 mmol/L Anion Gap 9.0 mmol/L 6.0 mmol/L Blood Urea Nitrogen 17 mg/dl 15 mg/dl Creatinine 1.17 mg/dl 1.24 mg/dl Est Creatinine Clear Calc Drug Dose 25.5 ml/min 23.4 ml/min Estimated GFR () 48.9 45.5 Estimated GFR (Non- 42.2 39.3 BUN/Creatinine Ratio 14.4 12.4 Random Glucose 90 mg/dl 83 mg/dl Calcium Level 9.0 mg/dl 8.1 mg/dl Magnesium Level 2.2 mg/dl Total Bilirubin 0.6 mg/dl Direct Bilirubin 0.1 mg/dl Aspartate Amino Transf (AST/SGOT) 25 U/L Alanine Aminotransferase (ALT/SGPT) 18 U/L Alkaline Phosphatase 82 U/L Total Protein 7.2 gm/dl Albumin 3.6 gm/dl Lipase 148 U/L Urine Color YELLOW Urine Appearance CLEAR Urine pH 7.0 Urine Specific [place] 1.009 Urine Protein NEG Urine Glucose (UA) NEG Urine Ketones NEG Urine Occult Blood NEG Urine Nitrite NEG Urine Bilirubin NEG Urine Urobilinogen NEG Urine Leukocyte Esterase NEG Lactic Acid Level 0.9 mmol/L Troponin I < 0.015 ng/ml ABD/PELVIS IV AND ORAL CONT CT DOSE: 268.82 mGy.cm HISTORY: Pelvic pain Eval for worsening diverticulitis TECHNIQUE: Multiaxial CT images of the abdomen and pelvis were performed following the use of intravenous and oral contrast. A dose lowering technique was utilized adhering to the principles of ALARA. COMPARISON STUDY: 06/23/2017 FINDINGS: Lung bases are clear. Liver enhances uniformly. Slight gallbladder distention. Kidneys negative for hydronephrosis. Pancreas is uniform. Bowel pattern within the abdomen is nonobstructive. Findings of the proximal to mid sigmoid diverticulitis are personally progressive. Bowel wall thickening is slightly increased. Pericolonic infiltrative change is stable. There is no evidence for extraluminal abscess or collection. There are no obstructive changes. Bladder is moderately distended. There is trace amount of air within the bladder presumably from prior catheterization procedure. IMPRESSION: 1. Acute proximal to mid sigmoid diverticulitis 2. This is slightly progressive in terms of severity and wall thickening compared to the prior study. 3. The study remains negative for abscess collection or obstruction. Assessment & Plan 87 year-old female who presented to emergency department from PCP office for syncopal episode and recurrent diverticulitis. This is her second hospitalization for diverticulitis in the last 2-3 weeks. Prior hospitalization in 2016. History of recurrent syncope with history of Tachy- Steven syndrome s/p pacemaker insertion 4-[address] scan of abdomen and pelvis showing acute proximal to mid sigmoid diverticulitis that is slightly progressive compared to prior study 2 weeks ago. + diarrhea but no rectal bleeding or blood in stools. Vitals are stable, afebrile, and no leukocytosis. She is passing gas and having loose stools. Colonoscopy aborted in 2016 due to severity of diverticular disease. Plan: Given the acute nature of the diverticulitis, would like to continue conservative management: IV Fluids, IV Zosyn, IV Pain management prn, IV Zofran prn, and bowel rest to allow the inflammation and edema to resolve. If patient does not completely open up and there is any decline in bowel function there would be concern for stricture given extent of diverticulosis instead of bowel wall edema secondary to infection/inflammation. There is no evidence of complicated diverticulitis (abscess, fistula, microperforation/perforation) at this time. Her pain has improved since being on IV antibiotics. Continue conservative management at this time. Discussed with patient that if she were to not progress or have consistent bowel function there may be concern for stricture and the need for possible colectomy and possible ostomy formation. Would recommend further eval for patient's syncope including cardiology consultation (Patient follows with Dr. Estevez) and the [facility] neurology consultation. Patient would need medical clearance if she were to require surgical intervention given her age and comorbidities. Continue only clear liquids for now, any vomiting revert back to NPO given abdominal distention Continue medical management repeat am labs OOB to chair and ambulation will follow Dr. Car has seen patient, discussed options with patient and daughter who was present at bedside.
[2017-07-06] MEDS: NSS + 20MEQ KCL 1000ML 1,000 ML IV SCH (13:46)
--- NOTE | 2017-07-06 14:57 | Neurology Consultation ---
Neurology Consultation Date of Consultation: July 06, 2017. Attending Physician: Tesfaye Mccray DO Primary Care Physician: Roly Vogel M.D. Reason for Consultation: recurrent syncope History of Present Illness Source: patient, family (daughter) Leslie is an 87 year old female with PMH recurrent diverticulitis, Afib on coumadin, chronic anemia, chronic diastolic heart failure, SSS-with pacemaker. She was seen approximate 2 weeks ago and had a through work up for syncope. At that time it was thought she had vasovagal episode because she does have syncope with blood draws. She was found to have diverticulitis on CT lower abdomen and was discharged on Augmentin. She was still having abdominal pain and saw PCP who was pushing on her stomach when she had this syncope episode. She states it was the same as in the past everything starts getting close to her and then she passes out. She had minimal confusion after the episode. denies CP, SOB, abdominal pain, one sided weakness, numbness tingling, N, V, swallowing issues, slurred speech, incontinence, biting tongue. Past Medical/Surgical History Medical Problems: (1) Anemia Status: Acute (2) Degenerative joint disease of knee, right Status: Acute (3) Diverticulitis Status: Acute (4) Failure of outpatient treatment Status: Acute (5) Subtherapeutic international normalized ratio (INR) Status: Acute (6) Syncope Status: Acute (7) Syncope Status: Acute (8) Urinary retention Status: Acute Social History Smoking Status: Never smoker Drug Use: none Marital Status: Housing Status: lives with family Occupation Status: retired Allergies Coded Allergies: Adhesives (Verified Allergy, Unknown, ADHESIVE TAPE, 12/31/15) Ciprofloxacin (Verified Allergy, Unknown, RASH, 06/24/17) Conjugated Estrogens (Verified Allergy, Unknown, SEVERE RASH, PAINFUL FROM VAGINAL CREAM, 12/31/15) Sulfa Antibiotics (Verified Allergy, Unknown, HIVES, RASH, 12/31/15) Tetanus Toxoid (Verified Allergy, Unknown, UNKNOWN, 12/31/15) Current Inpatient Medications Current Inpatient Medications Medications (Trade) Dose Ordered Sig/Astrid Route Start Time Stop Time Status Last Admin Dose Admin Ioversol (Optiray 320) 100 ml UD PRN IV 07/05/17 18:30 07/09/17 18:29 Acetaminophen (Tylenol Tab) 650 mg Q4H PRN PO 07/06/17 02:15 08/05/17 02:14 Levothyroxine Sodium (Synthroid Tab) 50 mcg QPM PO 07/06/17 21:00 08/05/17 20:59 Ropinirole HCl (Requip Tab) 0.5 mg BID PRN PO 07/06/17 02:15 08/05/17 02:14 Ropinirole HCl (Requip Tab) 1 mg BID PO 07/06/17 09:00 08/05/17 08:59 07/06/17 08:28 1 MG Rosuvastatin Calcium (Crestor Tab) 10 mg PM PO 07/06/17 21:00 08/05/17 20:59 Tamsulosin HCl (Flomax Cap) 0.4 mg QPM PO 07/06/17 21:00 08/05/17 20:59 Citalopram Hydrobromide (celeXA TAB) 10 mg HS PO 07/06/17 21:00 08/05/17 20:59 Miscellaneous Information (Order Awaiting Action) 1 ea QS N/A 07/06/17 08:00 08/05/17 07:59 Prochlorperazine Edisylate 5 mg/ Syringe 5 ml @ 5 mls/min Q6H PRN IV 07/06/17 02:15 08/05/17 02:14 Tramadol HCl (Ultram Tab) not relieved by tylenol @ Q6H PRN PO 07/06/17 02:15 08/05/17 02:14 07/06/17 03:05 50 MG Morphine Sulfate (MoRPHine SULFATE INJ) 2 mg Q3H PRN IV 07/06/17 02:15 07/20/17 02:14 Miscellaneous Information (Consult) 1 ea UD PRN N/A 07/06/17 02:45 08/05/17 02:44 Piperacillin Sod/ Tazobactam Sod 3.375 gm/Dextrose 115 ml @ 28.75 mls/ hr Q8H IV 07/06/17 06:00 07/16/17 05:59 07/06/17 13:46 28.75 MLS/HR Potassium Chloride/Sodium Chloride 1,000 ml @ 80 mls/hr [id number] IV 07/06/17 13:30 08/05/17 13:29 07/06/17 13:46 80 MLS/HR Metoprolol Tartrate (Lopressor Tab) 25 mg BID PO 07/06/17 21:00 08/05/17 20:59 Physical Exam Vital Signs (Past 24 Hrs): Date Time Temp Pulse Resp B/P (MAP) Pulse Ox O2 Delivery O2 Flow Rate FiO2 07/06/17 12:00 Room Air 07/06/17 11:52 36.8 71 18 107/62 (77) 96 Room Air 07/06/17 08:00 Room Air 07/06/17 07:44 36.6 61 16 125/67 (86) 94 Room Air 07/06/17 04:09 36.8 70 18 111/65 (80) 94 Room Air 71 84/47 (59) 71 101/67 (78) 07/06/17 04:00 Room Air 07/06/17 01:44 63 20 99/73 98 Room Air 07/06/17 00:50 68 18 100/71 96 Room Air 07/06/17 00:35 65 20 114/64 98 Room Air 07/06/17 00:00 36.8 66 17 135/64 Room Air 07/05/17 23:50 64 18 104/47 94 Room Air 07/05/17 22:33 71 20 106/63 99 Room Air 07/05/17 22:12 66 07/05/17 21:19 65 18 129/73 96 Room Air 07/05/17 19:12 63 18 156/69 95 Room Air 07/05/17 18:07 37.1 78 18 180/96 100 Room Air 07/05/17 18:00 77 Physical Exam: Constitutional: appearance nourished, healthy Ears, Nose, Mouth and Throat: mucous membranes moist, no injection and skin normal, eyes normal Cardiovascular: irregular Respiratory: clear to auscultation (CTA) and no rales, rhonchi or wheeze Musculoskeletal: distant distal pulses Skin: no stigmata of neurocutaneous disease noted and normal and intact Eyes: extraocular muscles intact (EOMI) and pupils equal, round and reactive to light (PERRL) NEUROLOGIC EXAMINATION: Mental status: Alert and interactive Oriented [facility] Oriented to person Speech fluent with no evidence of aphasia Cranial Nerves smile eye brow raise symmetric Reflexes: Deep tendon reflexes were symmetrical and graded 2/5. Plantar responses were flexor. Sensory: vibration, cool touch Coordination: finger to nose no bi pass Gait/Stance: Posture lying in bed Motor: Negative for pronator drift of out stretched arms with eyes closed. Strength: biceps triceps hand washhouse worker 5/5 bilaterally hip flex plantar flex ext 5/5 bilaterally Laboratory Results Past 24 Hours: 07/06/17 02:32 Red Blood Count 3.53, Mean Corpuscular Volume 87.0, Mean Corpuscular Hemoglobin 28.6, Mean Corpuscular Hemoglobin Concent 32.9, Mean Platelet Volume 10.1, Neutrophils (%) (Auto) 60.0, Lymphocytes (%) (Auto) 23.2, Monocytes (%) (Auto) 13.0, Eosinophils (%) (Auto) 3.3, Basophils (%) (Auto) 0.4, Neutrophils # (Auto ) 4.43, Lymphocytes # (Auto) 1.71, Monocytes # (Auto) 0.96, Eosinophils # (Auto ) 0.24, Basophils # (Auto) 0.03 07/06/17 02:32 Test 07/05/17 18:25 07/05/17 18:40 07/06/17 02:32 Activated Partial Thromboplast Time 38.8 SECONDS (21.0-31.0) Partial Thromboplastin Ratio 1.5 Magnesium Level 2.2 mg/dl (1.8-2.4) Total Bilirubin 0.6 mg/dl (0.2-1) Direct Bilirubin 0.1 mg/dl (0-0.2) Aspartate Amino Transf (AST/SGOT) 25 U/L (15-37) Alanine Aminotransferase (ALT/SGPT) 18 U/L (12-78) Alkaline Phosphatase 82 U/L (45-117) Total Protein 7.2 gm/dl (6.4-8.2) Albumin 3.6 gm/dl (3.4-5.0) Lipase 148 U/L (73-393) Urine Color YELLOW Urine Appearance CLEAR (CLEAR) Urine pH 7.0 (4.5-7.5) Urine Specific [place] 1.009 (1.000-1.030) Urine Protein NEG (NEG) Urine Glucose (UA) NEG (NEG) Urine Ketones NEG (NEG) Urine Occult Blood NEG (NEG) Urine Nitrite NEG (NEG) Urine Bilirubin NEG (NEG) Urine Urobilinogen NEG (NEG) Urine Leukocyte Esterase NEG (NEG) White Blood Count 7.38 K/uL (4.8-10.8) Red Blood Count 3.53 M/uL (4.2-5.4) Hemoglobin 10.1 g/dL (12.0-16.0) Hematocrit 30.7 % (37-47) Mean Corpuscular Volume 87.0 fL (80-100) Mean Corpuscular Hemoglobin 28.6 pg (25-34) Mean Corpuscular Hemoglobin Concent 32.9 g/dl (32-36) Platelet Count 243 K/uL (130-400) Mean Platelet Volume 10.1 fL (7.4-10.4) Neutrophils (%) (Auto) 60.0 % Lymphocytes (%) (Auto) 23.2 % Monocytes (%) (Auto) 13.0 % Eosinophils (%) (Auto) 3.3 % Basophils (%) (Auto) 0.4 % Neutrophils # (Auto) 4.43 K/uL (1.4-6.5) Lymphocytes # (Auto) 1.71 K/uL (1.2-3.4) Monocytes # (Auto) 0.96 K/uL (0.11-0.59) Eosinophils # (Auto) 0.24 K/uL (0-0.5) Basophils # (Auto) 0.03 K/uL (0-0.2) RDW Standard Deviation 47.7 fL (36.4-46.3) RDW Coefficient of Variation 15.1 % (11.5-14.5) Immature Granulocyte % (Auto) 0.1 % Immature Granulocyte # (Auto) 0.01 K/uL (0.00-0.02) Prothrombin Time 26.8 SECONDS (9.0-12.0) Prothromb Time International Ratio 2.6 (0.9-1.1) Anion Gap 6.0 mmol/L (3-11) Est Creatinine Clear Calc Drug Dose 23.4 ml/min Estimated GFR () 45.5 Estimated GFR (Non- 39.3 BUN/Creatinine Ratio 12.4 (10-20) Lactic Acid Level 0.9 mmol/L (0.4-2.0) Calcium Level 8.1 mg/dl (8.5-10.1) Troponin I < 0.015 ng/ml (0-0.045) Imaging CT head no acute intracranial findings Impression 87 year old female with history of vasovagal syncope Plan 1. head CT with no acute findings 2. orthostatics for any drop with standing 3. cardiology - interrogation of pacer done with last admission 4. last admission for syncope - full workup with no cardio vascular findings- only further recommendations was vestibular clinic however she does not complain of room spinning 5. fall precautions 6. primary team for medical management 7. GI for diverticulitis recommendations- currently on clear liquids and bowel rest 8. will sign off for now. once medically stable vestibular clinic could be ordered I have seen and discussed above patient with Dr Anton Casanova, neurology recurrent pain mediated vagal syncope or in thsi case near syncope and no residual effects and nothing on exam or imaging No need to postulate a seizure at this time and we will sign off. I have discussed the above recommendation with Gracia Michaud :MARIA TERESA Velasco and have interviewed and examined the patient and have reviewed the labs and imaging studies Anton Casanova MD
[2017-07-06] MEDS: ACETAMINOPHEN 325 MG TAB PO PRN (16:38)
[2017-07-06] MEDS ORDERED: METOPROLOL TARTRATE 50 MG TAB PO SCH (21:00)
[2017-07-06] MEDS: METOPROLOL TARTRATE 25 MG TAB PO SCH (21:14)
[2017-07-06] MEDS: TAMSULOSIN HCL 0.4 MG CAP PO SCH (21:14)
[2017-07-06] MEDS: CITALOPRAM 20 MG TAB PO SCH (21:15)
[2017-07-06] MEDS: ROSUVASTATIN CALCIUM 10 MG TAB PO SCH (21:15)
[2017-07-06] MEDS: LEVOTHYROXINE 50 MCG TAB PO SCH (21:16)
[2017-07-07] VITALS (8 sets, daily range): BP systolic 107–143; BP diastolic 62–81; PULSE 16–68; TEMP 36.4–37; O2SAT 94–99
[2017-07-07] MEDS: NSS + 20MEQ KCL 1000ML 1,000 ML IV SCH ×2 (03:11→14:47)
[2017-07-07] MEDS: PIPERACILL/TAZOBAC IV 3.375 GM in D5W 100ML IV SCH ×3 (05:45→21:33)
[2017-07-07 07:20] LABS: HEMATOCRIT 32.2 % (37-47); MEAN CORPUSCULAR HEMOGLOBIN 27.6 pg (25-34); MEAN CORPUSCULAR HGB CONC 31.1 g/dl (32-36); MEAN PLATELET VOLUME 10.4 fL (7.4-10.4); PLATELET COUNT 238 K/uL (130-400); RED CELL DISTRIBUTION WIDTH CV 15.3 % (11.5-14.5); RED CELL DISTRIBUTION WIDTH SD 50.1 fL (36.4-46.3); WHITE BLOOD COUNT 5.12 K/uL (4.8-10.8)
[2017-07-07 07:57] LABS: CALCIUM 8.4 mg/dl (8.5-10.1); CREATININE 1.33 mg/dl (0.60-1.20); POTASSIUM 4.3 mmol/L (3.5-5.1)
[2017-07-07] MEDS: ROPINIROLE HCL 1 MG TAB PO SCH ×2 (08:03→20:28)
[2017-07-07] MEDS: METOPROLOL TARTRATE 25 MG TAB PO SCH ×2 (08:03→20:28)
--- NOTE | 2017-07-07 13:11 | Progress Note ---
Subjective Date of Service: July 07, 2017. Subjective Pt evaluation today including: conversation w/ patient, conversation w/ family , physical exam, lab review, review of studies, review of inpatient medication list Saw/examined the patient in room 285 No problems/issues to note today; abdominal pain is improving Is not doing well with the clear liquid diet because of the taste +diarrhea persists, but slowing Problem List Medical Problems: (1) Anemia Status: Acute (2) Degenerative joint disease of knee, right Status: Acute (3) Diverticulitis Status: Acute (4) Failure of outpatient treatment Status: Acute (5) Subtherapeutic international normalized ratio (INR) Status: Acute (6) Syncope Status: Acute (7) Syncope Status: Acute (8) Urinary retention Status: Acute Review of Systems Constitutional: No fever, No chills Respiratory: No cough, No sputum, No shortness of breath Cardiac: No chest pain, No edema, No palpitations Abdomen: + diarrhea, No pain (improving), No nausea, No vomiting Medications Current Inpatient Medications Medications (Trade) Dose Ordered Sig/Astrid Route Start Time Stop Time Status Last Admin Dose Admin Ioversol (Optiray 320) 100 ml UD PRN IV 07/05/17 18:30 07/09/17 18:29 Acetaminophen (Tylenol Tab) 650 mg Q4H PRN PO 07/06/17 02:15 08/05/17 02:14 07/06/17 16:38 650 MG Levothyroxine Sodium (Synthroid Tab) 50 mcg QPM PO 07/06/17 21:00 08/05/17 20:59 07/06/17 21:16 50 MCG Ropinirole HCl (Requip Tab) 0.5 mg BID PRN PO 07/06/17 02:15 08/05/17 02:14 Ropinirole HCl (Requip Tab) 1 mg BID PO 07/06/17 09:00 08/05/17 08:59 07/07/17 08:03 1 MG Rosuvastatin Calcium (Crestor Tab) 10 mg PM PO 07/06/17 21:00 08/05/17 20:59 07/06/17 21:15 10 MG Tamsulosin HCl (Flomax Cap) 0.4 mg QPM PO 07/06/17 21:00 08/05/17 20:59 07/06/17 21:14 0.4 MG Citalopram Hydrobromide (celeXA TAB) 10 mg HS PO 07/06/17 21:00 08/05/17 20:59 07/06/17 21:15 10 MG Miscellaneous Information (Order Awaiting Action) 1 ea QS N/A 07/06/17 08:00 08/05/17 07:59 Prochlorperazine Edisylate 5 mg/ Syringe 5 ml @ 5 mls/min Q6H PRN IV 07/06/17 02:15 08/05/17 02:14 Tramadol HCl (Ultram Tab) not relieved by tylenol @ Q6H PRN PO 07/06/17 02:15 08/05/17 02:14 07/06/17 03:05 50 MG Morphine Sulfate (MoRPHine SULFATE INJ) 2 mg Q3H PRN IV 07/06/17 02:15 07/20/17 02:14 Miscellaneous Information (Consult) 1 ea UD PRN N/A 07/06/17 02:45 08/05/17 02:44 Piperacillin Sod/ Tazobactam Sod 3.375 gm/Dextrose 115 ml @ 28.75 mls/ hr Q8H IV 07/06/17 06:00 07/16/17 05:59 07/07/17 05:45 28.75 MLS/HR Potassium Chloride/Sodium Chloride 1,000 ml @ 80 mls/hr [id number] IV 07/06/17 13:30 08/05/17 13:29 07/07/17 03:11 80 MLS/HR Metoprolol Tartrate (Lopressor Tab) 25 mg BID PO 07/06/17 21:00 08/05/17 20:59 07/07/17 08:03 25 MG Objective Vital Signs Date Time Temp Pulse Resp B/P (MAP) Pulse Ox O2 Delivery O2 Flow Rate FiO2 07/07/17 12:00 Room Air 07/07/17 11:57 36.6 65 18 131/73 (92) 95 07/07/17 08:05 36.5 62 16 107/62 (77) 94 16 07/07/17 08:00 Room Air 07/07/17 04:00 36.4 68 16 111/68 (82) 99 Room Air 07/07/17 04:00 Room Air 07/07/17 00:00 Room Air 07/06/17 23:48 36.6 59 16 152/74 (100) 99 Room Air 07/06/17 21:11 66 152/76 (101) 07/06/17 20:07 Room Air 07/06/17 18:59 36.6 59 20 115/63 (80) 97 07/06/17 15:12 36.8 62 20 135/76 (95) 97 Physical Exam General Appearance: no apparent distress Respiratory/Chest: lungs clear, normal breath sounds, no respiratory distress, no accessory muscle use Cardiovascular: regular rate, rhythm, no edema, no murmur Abdomen: normal bowel sounds, soft, + tenderness Neurologic/Psychiatric: no motor/sensory deficits, alert, normal mood/affect Laboratory Results Last 24 Hours Test 07/07/17 07:01 White Blood Count 5.12 K/uL Red Blood Count 3.62 M/uL Hemoglobin 10.0 g/dL Hematocrit 32.2 % Mean Corpuscular Volume 89.0 fL Mean Corpuscular Hemoglobin 27.6 pg Mean Corpuscular Hemoglobin Concent 31.1 g/dl RDW Standard Deviation 50.1 fL RDW Coefficient of Variation 15.3 % Platelet Count 238 K/uL Mean Platelet Volume 10.4 fL Prothrombin Time 30.8 SECONDS Prothromb Time International Ratio 3.0 Sodium Level 141 mmol/L Potassium Level 4.3 mmol/L Chloride Level 109 mmol/L Carbon Dioxide Level 26 mmol/L Anion Gap 5.0 mmol/L Blood Urea Nitrogen 8 mg/dl Creatinine 1.33 mg/dl Est Creatinine Clear Calc Drug Dose 21.9 ml/min Estimated GFR () 41.8 Estimated GFR (Non- 36.1 BUN/Creatinine Ratio 6.2 Random Glucose 89 mg/dl Calcium Level 8.4 mg/dl Magnesium Level 2.3 mg/dl Assessment and Plan This is an 87 year old female with a past medical history of tachy-enid syndrome s/p permanent pacemaker, paroxysmal atrial fibrillation on long-term anticoagulation, HTN, HLD, CKD stage 3, hypothyroidism, hx. of diverticulitis, hx. of syncope - presents with worsening abdominal pain; recurrent, acute diverticulitis Recurrent, Acute Diverticulitis 07/07 - continue conservative management - appreciate general surgery input - continue IV Zosyn, IV fluids - currently clear liquid diet, advance as per surgery 07/06 - CT abdomen - progressive proximal to mid sigmoid diverticulitis - appreciate GI input, at this point, we will consult general surgery due to recurrent nature of diverticulitis - continue Zosyn for now; IVFs Recurrent Syncopal Episodes Pain Mediated Vagal Syncope - pacemaker interrogation - patient has had issues with syncope/loss of consciousness - appreciate neuro input - continue IVFs and treat diverticulitis Hx. of tachy-enid syndrome s/p permanent pacemaker Paroxysmal A. Fib - continue b-ольга - INR goal of 2-3, holding Coumadin for now, awaiting surgery input DVT ppx - Coumadin, INR 2-3 FULL CODE
--- NOTE | 2017-07-07 17:29 | Surgery Progress Note ---
Surgery Progress Note Date of Service July 07, 2017. Subjective pain improving, still present tolerating clear liquids passing gas and + bowel movements no fevers or chills no nausea or vomiting hungry and would like mashed potatoes Objective Vital Signs: Date Time Temp Pulse Resp B/P (MAP) Pulse Ox O2 Delivery O2 Flow Rate FiO2 07/07/17 16:00 98 Room Air 07/07/17 15:41 36.9 64 16 133/66 (88) 98 07/07/17 12:00 Room Air 07/07/17 11:57 36.6 65 18 131/73 (92) 95 07/07/17 08:05 36.5 62 16 107/62 (77) 94 16 07/07/17 08:00 Room Air 07/07/17 04:00 36.4 68 16 111/68 (82) 99 Room Air 07/07/17 04:00 Room Air 07/07/17 00:00 Room Air 07/06/17 23:48 36.6 59 16 152/74 (100) 99 Room Air 07/06/17 21:11 66 152/76 (101) 07/06/17 20:07 Room Air 07/06/17 18:59 36.6 59 20 115/63 (80) 97 General Appearance: WD/WN, no apparent distress Head: normocephalic, atraumatic Neck: trachea midline Respiratory/Chest: no respiratory distress, no accessory muscle use Abdomen: non distended, soft, no organomegaly, + tenderness (RLQ and LLQ with guarding, improved compared to yesterday) Laboratory Results: Results Past 24 Hours Test 07/07/17 07:01 Range/Units White Blood Count 5.12 4.8-10.8 K/uL Red Blood Count 3.62 4.2-5.4 M/uL Hemoglobin 10.0 12.0-16.0 g/dL Hematocrit 32.2 37-47 % Mean Corpuscular Volume 89.0 80-100 fL Mean Corpuscular Hemoglobin 27.6 25-34 pg Mean Corpuscular Hemoglobin Concent 31.1 32-36 g/dl RDW Standard Deviation 50.1 36.4-46.3 fL RDW Coefficient of Variation 15.3 11.5-14.5 % Platelet Count 238 130-400 K/uL Mean Platelet Volume 10.4 7.4-10.4 fL Prothrombin Time 30.8 9.0-12.0 SECONDS Prothromb Time International Ratio 3.0 0.9-1.1 Sodium Level 141 136-145 mmol/L Potassium Level 4.3 3.5-5.1 mmol/L Chloride Level 109 98-107 mmol/L Carbon Dioxide Level 26 21-32 mmol/L Anion Gap 5.0 3-11 mmol/L Blood Urea Nitrogen 8 7-18 mg/dl Creatinine 1.33 0.60-1.20 mg/dl Est Creatinine Clear Calc Drug Dose 21.9 ml/min Estimated GFR () 41.8 Estimated GFR (Non- 36.1 BUN/Creatinine Ratio 6.2 10-20 Random Glucose 89 70-99 mg/dl Calcium Level 8.4 8.5-10.1 mg/dl Magnesium Level 2.3 1.8-2.4 mg/dl Microbiology Results 07/07/17 C.difficile Toxin B Gene (PCR) - Final, Complete Positive for C. difficile toxin B gene Assessment & Plan 87 year-old female who presented to emergency department from PCP office for syncopal episode and recurrent diverticulitis. This is her second hospitalization for diverticulitis in the last 2-3 weeks. Prior hospitalization in 2016. History of recurrent syncope with history of Tachy- Steven syndrome s/p pacemaker insertion 4-[address] scan of abdomen and pelvis showing acute proximal to mid sigmoid diverticulitis that is slightly progressive compared to prior study 2 weeks ago. + diarrhea but no rectal bleeding or blood in stools. Vitals are stable, afebrile, and no leukocytosis. She is passing gas and having loose stools. Colonoscopy aborted in 2016 due to severity of diverticular disease. Plan: continue conservative management: IV Fluids, IV Zosyn, IV Pain management prn, IV Zofran prn. There is no evidence of complicated diverticulitis (abscess, fistula, microperforation/perforation) at this time. Pain improving and no leukocytosis with positive bowel function. Would like to get patient through this hospitalization and acute inflammatory/infection phase and then follow-up as an outpatient for possible barium enema to rule out stricture vs edema secondary to infection/inflammation. She may need resection if stricture present. Advance diet to low fiber diet for dinner Continue medical management repeat am labs OOB to chair and ambulation will follow Dr. Car has seen patient, agrees with above
[2017-07-07] MEDS: ROSUVASTATIN CALCIUM 10 MG TAB PO SCH (20:27)
[2017-07-07] MEDS: TAMSULOSIN HCL 0.4 MG CAP PO SCH (20:28)
[2017-07-07] MEDS: CITALOPRAM 20 MG TAB PO SCH (20:28)
[2017-07-07] MEDS: LEVOTHYROXINE 50 MCG TAB PO SCH (20:32)
[2017-07-07] MEDS: FIDAXOMICIN TAB 200 MG TAB PO SCH (21:33)
[2017-07-08] VITALS (11 sets, daily range): BP systolic 124–171; BP diastolic 66–89; PULSE 60–78; TEMP 36.5–37; O2SAT 95–98
[2017-07-08] MEDS: NSS + 20MEQ KCL 1000ML 1,000 ML IV SCH ×2 (03:14→15:39)
[2017-07-08] MEDS: PIPERACILL/TAZOBAC IV 3.375 GM in D5W 100ML IV SCH ×3 (06:17→22:17)
[2017-07-08 07:57] LABS: INR 2.7 (0.9-1.1)
[2017-07-08] MEDS: ROPINIROLE HCL 1 MG TAB PO SCH ×2 (08:58→21:14)
[2017-07-08] MEDS: METOPROLOL TARTRATE 25 MG TAB PO SCH ×2 (08:59→21:15)
[2017-07-08] MEDS: FIDAXOMICIN TAB 200 MG TAB PO SCH ×2 (09:44→21:13)
--- NOTE | 2017-07-08 10:42 | Medical Consult ---
Consultation Date of Consultation: July 08, 2017. Attending Physician: Tesfaye Mccray DO Reason for Consultation: Dificid History of Present Illness 87-year-old female with history of hypertension, tachybradycardia syndrome status post pacemaker, stage III chronic kidney disease, with recurrent diverticulitis, recently on Augmentin and metronidazole for recurrent episode, admitted to the hospital after syncopal episode with worsening abdominal pain, diarrhea, without fever or chills. Has been found on CT scan, read by me, to have evidence of diverticulitis but now also C. difficile PCR positive. Patient has been started on antibiotics with Zosyn and now fidaxomicin. Still complaining of severe pain, currently 8 out of 10 in intensity especially right- sided and lower quadrant. Past Medical/Surgical History Medical Problems: (1) Anemia Status: Acute (2) Degenerative joint disease of knee, right Status: Acute (3) Diverticulitis Status: Acute (4) Failure of outpatient treatment Status: Acute (5) Subtherapeutic international normalized ratio (INR) Status: Acute (6) Syncope Status: Acute (7) Syncope Status: Acute (8) Urinary retention Status: Acute Medical Problems: (1) Atrial fibrillation (2) CKD (chronic kidney disease) (3) CKD (chronic kidney disease), stage III (4) Dyslipidemia (5) HTN (hypertension) (6) Pacemaker (7) RLS (restless legs syndrome) (8) Rosacea (9) SVT (supraventricular tachycardia) (10) Syncope (11) Syncope and collapse (12) Tachy-enid syndrome Surgical Problems: (1) History of carpal tunnel surgery (2) History of cataract surgery (3) History of hysterectomy (4) Post-operative state Family History Diabetes mellitus Heart disease Hypertension Social History Smoking Status: Never Smoker Drug Use: none Marital Status: Housing Status: lives with family Occupation Status: retired Allergies Coded Allergies: Adhesives (Verified Allergy, Unknown, ADHESIVE TAPE, 12/31/15) Ciprofloxacin (Verified Allergy, Unknown, RASH, 06/24/17) Conjugated Estrogens (Verified Allergy, Unknown, SEVERE RASH, PAINFUL FROM VAGINAL CREAM, 12/31/15) Sulfa Antibiotics (Verified Allergy, Unknown, HIVES, RASH, 12/31/15) Tetanus Toxoid (Verified Allergy, Unknown, UNKNOWN, 12/31/15) Current Inpatient Medications RUN DATE: 07/07/17 [facility] PAGE 1 RUN TIME: 1655 Specimen Inquiry PATIENT: MARY WINKLER LOC: [facility] # : [id number] AGE/SX: 87/F ROOM: [facility] REG : 07/06/[address]: Tesfaye Mccray DO : 1930 BED: 2 DIS : STATUS: ADM IN TLOC: SPEC #: [id number] TRACEY: 07/07/17 STATUS: COMP REQ #: [id number] RECD: 07/07/17-[address]: Aron Olvera M.D. SOURCE: STOOL ENTR: 07/07/[address]: Tesfaye Mccray DO [facility]: IRB APPROVED STUDY, Jaison Walker M.D. Mateer, John, M.D. ( MEDICINE) Roly Vogel M.D. Yang, Chunjie ., MD ORDERED: CDIFF TOXIN B COMMENTS: Has Specimen Been Obtained/Collected? Y I have reviewed the C. diff order recommendations Y Procedure Result Verified Site CDIFF TOXIN B GENE*(2 YR OR >) Final 07/07/17-1655 Positive for C. difficile toxin B gene RESULTS WERE ALSO CALLED TO [facility] INFECTION CONTROL ANSWERING MACHINE ON 07/07/17 BY JON. Phoned results to SRUTHI PARSONS on 07/07/17 at 1654 by Suellen Ye. Results were verbalized back to JON. END OF REPORT Current Inpatient Medications Medications (Trade) Dose Ordered Sig/Astrid Route Start Time Stop Time Status Last Admin Dose Admin Ioversol (Optiray 320) 100 ml UD PRN IV 07/05/17 18:30 07/09/17 18:29 Acetaminophen (Tylenol Tab) 650 mg Q4H PRN PO 07/06/17 02:15 08/05/17 02:14 07/06/17 16:38 650 MG Levothyroxine Sodium (Synthroid Tab) 50 mcg QPM PO 07/06/17 21:00 08/05/17 20:59 07/07/17 20:32 50 MCG Ropinirole HCl (Requip Tab) 0.5 mg BID PRN PO 07/06/17 02:15 08/05/17 02:14 07/07/17 20:26 0.5 MG Ropinirole HCl (Requip Tab) 1 mg BID PO 07/06/17 09:00 08/05/17 08:59 07/08/17 08:58 1 MG Rosuvastatin Calcium (Crestor Tab) 10 mg PM PO 07/06/17 21:00 08/05/17 20:59 07/07/17 20:27 10 MG Tamsulosin HCl (Flomax Cap) 0.4 mg QPM PO 07/06/17 21:00 08/05/17 20:59 07/07/17 20:28 0.4 MG Citalopram Hydrobromide (celeXA TAB) 10 mg HS PO 07/06/17 21:00 08/05/17 20:59 07/07/17 20:28 10 MG Miscellaneous Information (Order Awaiting Action) 1 ea QS N/A 07/06/17 08:00 08/05/17 07:59 Prochlorperazine Edisylate 5 mg/ Syringe 5 ml @ 5 mls/min Q6H PRN IV 07/06/17 02:15 08/05/17 02:14 Tramadol HCl (Ultram Tab) not relieved by tylenol @ Q6H PRN PO 07/06/17 02:15 08/05/17 02:14 07/06/17 03:05 50 MG Morphine Sulfate (MoRPHine SULFATE INJ) 2 mg Q3H PRN IV 07/06/17 02:15 07/20/17 02:14 Miscellaneous Information (Consult) 1 ea UD PRN N/A 07/06/17 02:45 08/05/17 02:44 Piperacillin Sod/ Tazobactam Sod 3.375 gm/Dextrose 115 ml @ 28.75 mls/ hr Q8H IV 07/06/17 06:00 07/16/17 05:59 07/08/17 06:17 28.75 MLS/HR Potassium Chloride/Sodium Chloride 1,000 ml @ 80 mls/hr [id number] IV 07/06/17 13:30 08/05/17 13:29 07/08/17 03:14 80 MLS/HR Metoprolol Tartrate (Lopressor Tab) 25 mg BID PO 07/06/17 21:00 08/05/17 20:59 07/08/17 08:59 25 MG Fidaxomicin (Dificid Tab) 200 mg BID PO 07/07/17 21:00 07/21/17 20:59 07/08/17 09:44 200 MG Review of Systems Constitutional: + weakness, No fever Eyes: No problem reported ENT: No problem reported Respiratory: No problem reported Cardiovascular: No problem reported Abdomen: + pain, + diarrhea, No GI bleeding Musculoskeletal: No problem reported Genitourinary - Female: No problem reported Neurologic: + problem reported (Syncope) Psychiatric: No problem reported Endocrine: No problem reported Hematologic / Lymphatic: No problem reported Integumentary: No problem reported Allergic / Immunologic: No problem reported Physical Exam Date Time Temp Pulse Resp B/P (MAP) Pulse Ox O2 Delivery O2 Flow Rate FiO2 07/08/17 08:10 37.0 63 18 124/69 (87) 95 Room Air 07/08/17 08:00 96 Room Air 07/08/17 04:00 37.0 66 18 130/66 (87) 96 Room Air 07/08/17 04:00 Room Air 07/08/17 00:00 Room Air 07/07/17 23:11 37.0 67 18 127/70 (89) 97 Room Air 07/07/17 20:04 98 Room Air 07/07/17 19:55 37.0 62 18 143/81 (101) 99 Room Air 07/07/17 16:00 98 Room Air 07/07/17 15:41 36.9 64 16 133/66 (88) 98 07/07/17 12:00 Room Air 07/07/17 11:57 36.6 65 18 131/73 (92) 95 General Appearance: WD/WN, no apparent distress Head: normocephalic, atraumatic Eyes: normal inspection, EOMI, sclerae normal ENT: normal ENT inspection, hearing grossly normal, pharynx normal Neck: supple, no adenopathy, thyroid normal, trachea midline Respiratory/Chest: chest non-tender, lungs clear, normal breath sounds, no respiratory distress Cardiovascular: regular rate, rhythm, no gallop, no murmur Abdomen/GI: normal bowel sounds, soft, no organomegaly, + tenderness Back: normal inspection, no CVA tenderness Extremities/Musculoskelatal: normal inspection, no calf tenderness, non-tender Neurologic/Psych: alert, normal mood/affect, oriented x 3 Skin: normal color, warm/dry, no rash Lymphatic: no adenopathy Laboratory Results RUN DATE: 07/07/17 [facility] PAGE 1 RUN TIME: 1655 Specimen Inquiry PATIENT: MARY WINKLER LOC: [facility] # : [id number] AGE/SX: 87/F ROOM: [facility] REG : 07/06/[address]: Tesfaye Mccray DO : 1930 BED: 2 DIS : STATUS: ADM IN TLOC: SPEC #: [id number] TRACEY: 07/07/17-378 STATUS: JORDAN REGhada #: [id number] RECD: 07/07/17-[address]: Aron Olvera M.D. SOURCE: STOOL ENTR: 07/07/17-[address]: Tesfaye Mccray DO [facility]: IRB APPROVED STUDY, Jaison Walker M.D. Mateer, John, M.D. ( MEDICINE) Roly Vogel M.D. Yang, Chunjie ., MD ORDERED: CDIFF TOXIN B COMMENTS: Has Specimen Been Obtained/Collected? Y I have reviewed the C. diff order recommendations Y Procedure Result Verified Site CDIFF TOXIN B GENE*(2 YR OR >) Final 07/07/17-1655 Positive for C. difficile toxin B gene RESULTS WERE ALSO CALLED TO [facility] INFECTION CONTROL ANSWERING MACHINE ON 07/07/17 BY JON. Phoned results to SRUTHI PARSONS on 07/07/17 at 1654 by Suellen Ye. Results were verbalized back to JON. Last 24 Hours Test 07/08/17 07:28 Prothrombin Time 27.4 SECONDS Prothromb Time International Ratio 2.7 Patient Name: MARY WINKLER Unit Number: [id number] Dictated: 07/05/172137 Transcribed: 07/05/172137 MS Printed Date/Time: [~ rep prt dt]/[~ rep prt tm] [~ rep ct labl] - [~ rep ct ivnm] [facility] [place] [address] Dictated: 07/05/172137 Transcribed: 07/05/172137 MS Printed Date/Time: [~ rep prt dt]/[~ rep prt tm] [~ rep ct labl] - [~ rep ct ivnm] ABD/PELVIS IV AND ORAL CONT CT DOSE: 268.82 mGy.cm HISTORY: Pelvic pain Eval for worsening diverticulitis TECHNIQUE: Multiaxial CT images of the abdomen and pelvis were performed following the use of intravenous and oral contrast. A dose lowering technique was utilized adhering to the principles of ALARA. COMPARISON STUDY: 06/23/2017 FINDINGS: Lung bases are clear. Liver enhances uniformly. Slight gallbladder distention. Kidneys negative for hydronephrosis. Pancreas is uniform. Bowel pattern within the abdomen is nonobstructive. Findings of the proximal to mid sigmoid diverticulitis are personally progressive. Bowel wall thickening is slightly increased. Pericolonic infiltrative change is stable. There is no evidence for extraluminal abscess or collection. There are no obstructive changes. Bladder is moderately distended. There is trace amount of air within the bladder presumably from prior catheterization procedure. IMPRESSION: 1. Acute proximal to mid sigmoid diverticulitis 2. This is slightly progressive in terms of severity and wall thickening compared to the prior study. 3. The study remains negative for abscess collection or obstruction. The above report was generated using voice recognition software. It may contain grammatical, syntax or spelling errors. Electronically signed by: Masood Wild M.D. 07/05/2017 9:41 PM Dictated Date/Time: 07/05/2017 9:38 PM The status of this report is Signed. Draft = Not yet reviewed or approved by Radiologist. Signed = Reviewed and approved by Radiologist. <AttendingPhy></AttendingPhy> <FamilyPhy>Roly Vogel M.D.</FamilyPhy> < PrimaryPhy>Roly Vogel M.D.</PrimaryPhy> <UnitNumber>[id number]</ UnitNumber> <VisitNumber>[id number]</VisitNumber> <PatientName>MARY WINKLER </PatientName> <DateOfBirth>1930</DateOfBirth> <Location>C.EDB</Location> <ServiceDate>07/05/17</ServiceDate> <MNE>ESINDI</MNE> <OrderingPhy>Anton Downs MD</OrderingPhy> <OrderingPhyMNE>f rep ord dr ricardo</OrderingPhyMNE> < DictatingPhyMNE>f rep dict dr ricardo</DictatingPhyMNE> <CCListMNE>f rep ct mne</ CCListMNE> <AdmittingPhyMNE>f pt admit dr ricardo</AdmittingPhyMNE> <AttendingPhyMNE >f pt attend dr ricardo</AttendingPhyMNE> <ConsultingPhyMNE>f pt consult dr ricardo</ConsultingPhyMNE> <FamilyPhyMNE>f pt fam dr ricardo</FamilyPhyMNE> <OtherPhyMNE>f pt other dr ricardo</OtherPhyMNE> < PrimaryPhyMNE>f pt prim care dr ricardo</PrimaryPhyMNE> <ReferringPhyMNE>f pt referring dr ricardo</ReferringPhyMNE> Assessment & Plan 87-year-old female with recurrent diverticulitis as well as C. difficile colitis. Given that patient is at high risk for recurrence of C. difficile given her age and ongoing antibiotics, agree with the use of fidaxomicin 200 mg twice daily for 10 days. Will follow.
--- NOTE | 2017-07-08 14:32 | Progress Note ---
Subjective Date of Service: July 08, 2017. Subjective Pt evaluation today including: conversation w/ patient, conversation w/ family , physical exam, chart review, lab review, review of studies, conversation w/ sr. consultant, review of inpatient medication list Saw/examined the patient in room 285 She has +diarrhea and abdominal pain continues to have multiple episodes of diarrhea No fevers/chills Problem List Medical Problems: (1) Anemia Status: Acute (2) Degenerative joint disease of knee, right Status: Acute (3) Diverticulitis Status: Acute (4) Failure of outpatient treatment Status: Acute (5) Subtherapeutic international normalized ratio (INR) Status: Acute (6) Syncope Status: Acute (7) Syncope Status: Acute (8) Urinary retention Status: Acute Review of Systems Constitutional: No fever, No chills Respiratory: No cough, No sputum, No wheezing, No shortness of breath, No dyspnea on exertion, No dyspnea at rest, No hemoptysis Cardiac: No chest pain Abdomen: + pain, + diarrhea, No nausea, No vomiting, No constipation, No GI bleeding Female : No dysuria, No urinary frequency Heme: No abnormal bleeding/bruising Medications Current Inpatient Medications Medications (Trade) Dose Ordered Sig/Astrid Route Start Time Stop Time Status Last Admin Dose Admin Ioversol (Optiray 320) 100 ml UD PRN IV 07/05/17 18:30 07/09/17 18:29 Acetaminophen (Tylenol Tab) 650 mg Q4H PRN PO 07/06/17 02:15 08/05/17 02:14 07/06/17 16:38 650 MG Levothyroxine Sodium (Synthroid Tab) 50 mcg QPM PO 07/06/17 21:00 08/05/17 20:59 07/07/17 20:32 50 MCG Ropinirole HCl (Requip Tab) 0.5 mg BID PRN PO 07/06/17 02:15 08/05/17 02:14 07/07/17 20:26 0.5 MG Ropinirole HCl (Requip Tab) 1 mg BID PO 07/06/17 09:00 08/05/17 08:59 07/08/17 08:58 1 MG Rosuvastatin Calcium (Crestor Tab) 10 mg PM PO 07/06/17 21:00 08/05/17 20:59 07/07/17 20:27 10 MG Tamsulosin HCl (Flomax Cap) 0.4 mg QPM PO 07/06/17 21:00 08/05/17 20:59 07/07/17 20:28 0.4 MG Citalopram Hydrobromide (celeXA TAB) 10 mg HS PO 07/06/17 21:00 08/05/17 20:59 07/07/17 20:28 10 MG Miscellaneous Information (Order Awaiting Action) 1 ea QS N/A 07/06/17 08:00 08/05/17 07:59 Prochlorperazine Edisylate 5 mg/ Syringe 5 ml @ 5 mls/min Q6H PRN IV 07/06/17 02:15 08/05/17 02:14 Tramadol HCl (Ultram Tab) not relieved by tylenol @ Q6H PRN PO 07/06/17 02:15 08/05/17 02:14 07/06/17 03:05 50 MG Morphine Sulfate (MoRPHine SULFATE INJ) 2 mg Q3H PRN IV 07/06/17 02:15 07/20/17 02:14 Miscellaneous Information (Consult) 1 ea UD PRN N/A 07/06/17 02:45 08/05/17 02:44 Piperacillin Sod/ Tazobactam Sod 3.375 gm/Dextrose 115 ml @ 28.75 mls/ hr Q8H IV 07/06/17 06:00 07/16/17 05:59 07/08/17 06:17 28.75 MLS/HR Potassium Chloride/Sodium Chloride 1,000 ml @ 80 mls/hr [id number] IV 07/06/17 13:30 08/05/17 13:29 07/08/17 03:14 80 MLS/HR Metoprolol Tartrate (Lopressor Tab) 25 mg BID PO 07/06/17 21:00 08/05/17 20:59 07/08/17 08:59 25 MG Fidaxomicin (Dificid Tab) 200 mg BID PO 07/07/17 21:00 07/21/17 20:59 07/08/17 09:44 200 MG Objective Vital Signs Date Time Temp Pulse Resp B/P (MAP) Pulse Ox O2 Delivery O2 Flow Rate FiO2 07/08/17 12:06 36.5 63 16 162/89 (113) 98 07/08/17 08:10 37.0 63 18 124/69 (87) 95 Room Air 07/08/17 08:00 96 Room Air 07/08/17 04:00 37.0 66 18 130/66 (87) 96 Room Air 07/08/17 04:00 Room Air 07/08/17 00:00 Room Air 07/07/17 23:11 37.0 67 18 127/70 (89) 97 Room Air 07/07/17 20:04 98 Room Air 07/07/17 19:55 37.0 62 18 143/81 (101) 99 Room Air 07/07/17 16:00 98 Room Air 07/07/17 15:41 36.9 64 16 133/66 (88) 98 Physical Exam General Appearance: WD/WN, no apparent distress Respiratory/Chest: chest non-tender, lungs clear, normal breath sounds, no respiratory distress, no accessory muscle use Cardiovascular: regular rate, rhythm, no edema, no murmur Abdomen: + abnormal bowel sounds (hyperactive bowel sounds), + guarding, + tenderness Extremities: normal inspection, no pedal edema Neurologic/Psychiatric: no motor/sensory deficits, alert, normal mood/affect Laboratory Results Last 24 Hours Test 07/08/17 07:28 Prothrombin Time 27.4 SECONDS Prothromb Time International Ratio 2.7 Assessment and Plan This is an 87 year old female with a past medical history of tachy-enid syndrome s/p permanent pacemaker, paroxysmal atrial fibrillation on long-term anticoagulation, HTN, HLD, CKD stage 3, hypothyroidism, hx. of diverticulitis, hx. of syncope - presents with worsening abdominal pain; recurrent, acute diverticulitis New Onset C. Diff Colitis - C. diff is positive - diarrhea persistent and worsening - started on Dificid, appreciate ID input - 10 day course Recurrent, Acute Diverticulitis 07/08 - continue Zosyn, switch to Augmentin - continue low fiber diet for now 07/07 - continue conservative management - appreciate general surgery input - continue IV Zosyn, IV fluids - currently clear liquid diet, advance as per surgery 07/06 - CT abdomen - progressive proximal to mid sigmoid diverticulitis - appreciate GI input, at this point, we will consult general surgery due to recurrent nature of diverticulitis - continue Zosyn for now; IVFs Recurrent Syncopal Episodes Pain Mediated Vagal Syncope - pacemaker interrogation - patient has had issues with syncope/loss of consciousness - appreciate neuro input - continue IVFs and treat diverticulitis Hx. of tachy-enid syndrome s/p permanent pacemaker Paroxysmal A. Fib - continue b-ольга - INR goal of 2-3, holding Coumadin for now, awaiting surgery input DVT ppx - Coumadin, INR 2-3 FULL CODE
[2017-07-08] MEDS: WARFARIN SOD 1 MG TAB PO SCH (16:13)
--- NOTE | 2017-07-08 16:15 | Surgery Progress Note ---
Surgery Progress Note Date of Service July 08, 2017. Subjective Post OP Day: HD # 2 + diarrhea, had an accident unable to get to the bathroom in time today not complaining of much abdominal pain no nausea or vomiting tolerating low fiber diet Objective Vital Signs: Date Time Temp Pulse Resp B/P (MAP) Pulse Ox O2 Delivery O2 Flow Rate FiO2 07/08/17 15:39 36.9 72 18 159/70 (99) 98 07/08/17 12:06 36.5 63 16 162/89 (113) 98 07/08/17 08:10 37.0 63 18 124/69 (87) 95 Room Air 07/08/17 08:00 96 Room Air 07/08/17 04:00 37.0 66 18 130/66 (87) 96 Room Air 07/08/17 04:00 Room Air 07/08/17 00:00 Room Air 07/07/17 23:11 37.0 67 18 127/70 (89) 97 Room Air 07/07/17 20:04 98 Room Air 07/07/17 19:55 37.0 62 18 143/81 (101) 99 Room Air General Appearance: WD/WN, no apparent distress Head: normocephalic, atraumatic Neck: trachea midline Respiratory/Chest: no respiratory distress, no accessory muscle use Abdomen: soft, no organomegaly, no pulsatile mass, + distended, + tenderness ( in the RLQ, suprapubic, and LLQ. Mildyl improved compared to yesterday, no peritonitis or rigidity) Laboratory Results: Results Past 24 Hours Test 07/08/17 07:28 Range/Units Prothrombin Time 27.4 9.0-12.0 SECONDS Prothromb Time International Ratio 2.7 0.9-1.1 Assessment & Plan 87 year-old female who presented to emergency department from PCP office for syncopal episode and recurrent diverticulitis. This is her second hospitalization for diverticulitis in the last 2-3 weeks. Prior hospitalization in 2016. History of recurrent syncope with history of Tachy- Steven syndrome s/p pacemaker insertion 4-[address] scan of abdomen and pelvis showing acute proximal to mid sigmoid diverticulitis that is slightly progressive compared to prior study 2 weeks ago. + diarrhea but no rectal bleeding or blood in stools. Vitals are stable, afebrile, and no leukocytosis. She is passing gas and having loose stools. Colonoscopy aborted in 2016 due to severity of diverticular disease. Stool + for C. diff Plan: continue conservative management: IV Fluids, IV Zosyn, IV Pain management prn, IV Zofran prn. There is no evidence of complicated diverticulitis (abscess, fistula, microperforation/perforation) at this time. Pain improving and no leukocytosis with positive bowel function. However she now has positive c. diff infection. This mostly likely is the cause of increasing colitis seen on CT scan. Would like to get patient through this hospitalization and acute inflammatory/ infection phase and then follow-up as an outpatient for possible barium enema to rule out stricture. She may need resection if stricture present. Continue fidaxomicin 200 mg twice daily for 10 days per ID recs Continue low fiber diet Continue medical management Our services signing off, patient should follow-up with Dr. Car in [address] Car has seen patient, agrees with above
--- NOTE | 2017-07-08 16:16 | Consultant Recommendations ---
Pediatric Sports Medicine Specialist Recommendations Date of Service July 08, 2017. Pediatric Sports Medicine Specialist Recommendations Patient should follow-up with Dr. Car (General Surgery) in 2 weeks after her discharge for further evaluation and management of her diverticulitis once c. difficile infection is controlled. Please call office at [phone] to make an appointment.
[2017-07-08] MEDS: LACTOBACILLUS ACIDOPHILUS (FLORANEX) TAB PO SCH (17:10)
[2017-07-08] MEDS: CITALOPRAM 20 MG TAB PO SCH (21:13)
[2017-07-08] MEDS: TAMSULOSIN HCL 0.4 MG CAP PO SCH (21:14)
[2017-07-08] MEDS: ROSUVASTATIN CALCIUM 10 MG TAB PO SCH (21:14)
[2017-07-08] MEDS: LEVOTHYROXINE 50 MCG TAB PO SCH (21:15)
[2017-07-09] VITALS (10 sets, daily range): BP systolic 123–186; BP diastolic 67–83; PULSE 63–80; TEMP 36.7–37; O2SAT 96–97
[2017-07-09] MEDS: NSS + 20MEQ KCL 1000ML 1,000 ML IV SCH ×2 (04:11→16:09)
[2017-07-09] MEDS: PIPERACILL/TAZOBAC IV 3.375 GM in D5W 100ML IV SCH ×2 (05:36→13:31)
[2017-07-09] MEDS: LACTOBACILLUS ACIDOPHILUS (FLORANEX) TAB PO SCH ×3 (07:26→17:25)
[2017-07-09 07:36] LABS: MEAN CELL VOLUME 88.5 fL (80-100); MEAN CORPUSCULAR HEMOGLOBIN 28.6 pg (25-34); MEAN CORPUSCULAR HGB CONC 32.4 g/dl (32-36); MEAN PLATELET VOLUME 10.4 fL (7.4-10.4); PLATELET COUNT 240 K/uL (130-400); RED CELL DISTRIBUTION WIDTH CV 15.1 % (11.5-14.5); RED CELL DISTRIBUTION WIDTH SD 48.9 fL (36.4-46.3); WHITE BLOOD COUNT 5.44 K/uL (4.8-10.8)
[2017-07-09 07:50] LABS: INR 1.8 (0.9-1.1)
[2017-07-09 07:59] LABS: CALCIUM 8.1 mg/dl (8.5-10.1); CREATININE 1.22 mg/dl (0.60-1.20); POTASSIUM 4.1 mmol/L (3.5-5.1)
[2017-07-09] MEDS: METOPROLOL TARTRATE 25 MG TAB PO SCH ×2 (08:16→20:45)
[2017-07-09] MEDS: ROPINIROLE HCL 1 MG TAB PO SCH ×2 (08:16→20:45)
[2017-07-09] MEDS: FIDAXOMICIN TAB 200 MG TAB PO SCH ×2 (08:41→20:44)
[2017-07-09] MEDS: WARFARIN SOD 1 MG TAB PO SCH (16:08)
--- NOTE | 2017-07-09 17:43 | Infectious Disease Progress Nt ---
Progress Note Date of Service July 09, 2017. Subjective Pt evaluation today including: conversation w/ patient, physical exam, chart review, lab review, review of studies, conversation w/ crm consultant, review of inpatient medication list Still having diarrhea, but abdominal pain improved. Remains afebrile. No other new complaints. All Other Systems: Reviewed and Negative Medications Current Inpatient Medications Medications (Trade) Dose Ordered Sig/Astrid Route Start Time Stop Time Status Last Admin Dose Admin Ioversol (Optiray 320) 100 ml UD PRN IV 07/05/17 18:30 07/09/17 18:29 Acetaminophen (Tylenol Tab) 650 mg Q4H PRN PO 07/06/17 02:15 08/05/17 02:14 07/06/17 16:38 650 MG Levothyroxine Sodium (Synthroid Tab) 50 mcg QPM PO 07/06/17 21:00 08/05/17 20:59 07/08/17 21:15 50 MCG Ropinirole HCl (Requip Tab) 0.5 mg BID PRN PO 07/06/17 02:15 08/05/17 02:14 07/07/17 20:26 0.5 MG Ropinirole HCl (Requip Tab) 1 mg BID PO 07/06/17 09:00 08/05/17 08:59 07/09/17 08:16 1 MG Rosuvastatin Calcium (Crestor Tab) 10 mg PM PO 07/06/17 21:00 08/05/17 20:59 07/08/17 21:14 10 MG Tamsulosin HCl (Flomax Cap) 0.4 mg QPM PO 07/06/17 21:00 08/05/17 20:59 07/08/17 21:14 0.4 MG Citalopram Hydrobromide (celeXA TAB) 10 mg HS PO 07/06/17 21:00 08/05/17 20:59 07/08/17 21:13 10 MG Miscellaneous Information (Order Awaiting Action) 1 ea QS N/A 07/06/17 08:00 08/05/17 07:59 Prochlorperazine Edisylate 5 mg/ Syringe 5 ml @ 5 mls/min Q6H PRN IV 07/06/17 02:15 08/05/17 02:14 Tramadol HCl (Ultram Tab) not relieved by tylenol @ Q6H PRN PO 07/06/17 02:15 08/05/17 02:14 07/06/17 03:05 50 MG Morphine Sulfate (MoRPHine SULFATE INJ) 2 mg Q3H PRN IV 07/06/17 02:15 07/20/17 02:14 Potassium Chloride/Sodium Chloride 1,000 ml @ 80 mls/hr [id number] IV 07/06/17 13:30 08/05/17 13:29 07/09/17 16:09 80 MLS/HR Metoprolol Tartrate (Lopressor Tab) 25 mg BID PO 07/06/17 21:00 08/05/17 20:59 07/09/17 08:16 25 MG Fidaxomicin (Dificid Tab) 200 mg BID PO 07/07/17 21:00 07/21/17 20:59 07/09/17 08:41 200 MG Warfarin Sodium (Coumadin Tab) 1 mg DAILY@16 PO 07/08/17 16:00 08/07/17 15:59 07/09/17 16:08 1 MG Lactobacillus Acidophilus (Floranex Tab) 4 tab TIDM PO 07/08/17 17:00 08/07/17 16:59 07/09/17 17:25 4 TAB Amoxicillin/ Clavulanate Potassium (Augmentin Tab) 500 mg BIDM PO 07/10/17 08:00 07/20/17 07:59 UNV Objective Vital Signs Date Time Temp Pulse Resp B/P (MAP) Pulse Ox O2 Delivery O2 Flow Rate FiO2 07/09/17 15:35 36.7 80 18 140/71 (94) 97 07/09/17 12:00 97 Room Air 07/09/17 11:49 36.7 80 18 142/74 (96) 97 Room Air 07/09/17 08:00 97 Room Air 07/09/17 04:26 37.0 65 18 123/67 (85) 97 Room Air 07/09/17 04:00 Room Air 07/09/17 00:09 Room Air 07/08/17 23:11 37.0 61 20 169/73 (105) 97 Room Air 07/08/17 21:12 60 168/72 (104) 95 Room Air 07/08/17 20:00 96 Room Air 07/08/17 19:07 36.6 61 18 167/72 (103) 96 Room Air 07/08/17 18:51 37.0 78 20 171/79 (109) 97 Room Air Physical Exam General Appearance: WD/WN, no apparent distress Eyes: normal inspection, EOMI, sclerae normal ENT: normal ENT inspection, pharynx normal Neck: supple, no adenopathy, thyroid normal, trachea midline Respiratory/Chest: chest non-tender, lungs clear, normal breath sounds, no respiratory distress Cardiovascular: regular rate, rhythm, no gallop, no murmur Abdomen: normal bowel sounds, + tenderness Extremities: non-tender, no calf tenderness Neurologic/Psychiatric: alert, oriented x 3 Skin: normal color, warm/dry, no rash Lymphatic: no adenopathy Laboratory Results Last 24 Hours Test 07/09/17 07:17 White Blood Count 5.44 K/uL Red Blood Count 3.84 M/uL Hemoglobin 11.0 g/dL Hematocrit 34.0 % Mean Corpuscular Volume 88.5 fL Mean Corpuscular Hemoglobin 28.6 pg Mean Corpuscular Hemoglobin Concent 32.4 g/dl RDW Standard Deviation 48.9 fL RDW Coefficient of Variation 15.1 % Platelet Count 240 K/uL Mean Platelet Volume 10.4 fL Prothrombin Time 18.7 SECONDS Prothromb Time International Ratio 1.8 Sodium Level 137 mmol/L Potassium Level 4.1 mmol/L Chloride Level 111 mmol/L Carbon Dioxide Level 22 mmol/L Anion Gap 4.0 mmol/L Blood Urea Nitrogen 7 mg/dl Creatinine 1.22 mg/dl Est Creatinine Clear Calc Drug Dose 23.4 ml/min Estimated GFR () 46.5 Estimated GFR (Non- 40.1 BUN/Creatinine Ratio 5.6 Random Glucose 88 mg/dl Calcium Level 8.1 mg/dl Magnesium Level 2.3 mg/dl Assessment and Plan 87-year-old female with recurrent diverticulitis as well as C. difficile colitis. Patient be continued on Dificid for 10 days, transition to oral Augmentin to complete treatment for diverticulitis.
--- NOTE | 2017-07-09 18:17 | Progress Note ---
Subjective Date of Service: July 09, 2017. Subjective Pt evaluation today including: conversation w/ patient, physical exam, lab review, review of studies, review of inpatient medication list Saw/examined the patient in room 285 +diarrhea, worse at night abdominal pain has resolved Problem List Medical Problems: (1) Anemia Status: Acute (2) Degenerative joint disease of knee, right Status: Acute (3) Diverticulitis Status: Acute (4) Failure of outpatient treatment Status: Acute (5) Subtherapeutic international normalized ratio (INR) Status: Acute (6) Syncope Status: Acute (7) Syncope Status: Acute (8) Urinary retention Status: Acute Review of Systems Constitutional: No fever, No chills Respiratory: No shortness of breath Cardiac: No chest pain Abdomen: + pain, + diarrhea, No nausea, No vomiting, No constipation, No GI bleeding Medications Current Inpatient Medications Medications (Trade) Dose Ordered Sig/Astrid Route Start Time Stop Time Status Last Admin Dose Admin Ioversol (Optiray 320) 100 ml UD PRN IV 07/05/17 18:30 07/09/17 18:29 Acetaminophen (Tylenol Tab) 650 mg Q4H PRN PO 07/06/17 02:15 08/05/17 02:14 07/06/17 16:38 650 MG Levothyroxine Sodium (Synthroid Tab) 50 mcg QPM PO 07/06/17 21:00 08/05/17 20:59 07/08/17 21:15 50 MCG Ropinirole HCl (Requip Tab) 0.5 mg BID PRN PO 07/06/17 02:15 08/05/17 02:14 07/07/17 20:26 0.5 MG Ropinirole HCl (Requip Tab) 1 mg BID PO 07/06/17 09:00 08/05/17 08:59 07/09/17 08:16 1 MG Rosuvastatin Calcium (Crestor Tab) 10 mg PM PO 07/06/17 21:00 08/05/17 20:59 07/08/17 21:14 10 MG Tamsulosin HCl (Flomax Cap) 0.4 mg QPM PO 07/06/17 21:00 08/05/17 20:59 07/08/17 21:14 0.4 MG Citalopram Hydrobromide (celeXA TAB) 10 mg HS PO 07/06/17 21:00 08/05/17 20:59 07/08/17 21:13 10 MG Miscellaneous Information (Order Awaiting Action) 1 ea QS N/A 07/06/17 08:00 08/05/17 07:59 Prochlorperazine Edisylate 5 mg/ Syringe 5 ml @ 5 mls/min Q6H PRN IV 07/06/17 02:15 08/05/17 02:14 Tramadol HCl (Ultram Tab) not relieved by tylenol @ Q6H PRN PO 07/06/17 02:15 08/05/17 02:14 07/06/17 03:05 50 MG Morphine Sulfate (MoRPHine SULFATE INJ) 2 mg Q3H PRN IV 07/06/17 02:15 07/20/17 02:14 Potassium Chloride/Sodium Chloride 1,000 ml @ 80 mls/hr [id number] IV 07/06/17 13:30 08/05/17 13:29 07/09/17 16:09 80 MLS/HR Metoprolol Tartrate (Lopressor Tab) 25 mg BID PO 07/06/17 21:00 08/05/17 20:59 07/09/17 08:16 25 MG Fidaxomicin (Dificid Tab) 200 mg BID PO 07/07/17 21:00 07/21/17 20:59 07/09/17 08:41 200 MG Warfarin Sodium (Coumadin Tab) 1 mg DAILY@16 PO 07/08/17 16:00 08/07/17 15:59 07/09/17 16:08 1 MG Lactobacillus Acidophilus (Floranex Tab) 4 tab TIDM PO 07/08/17 17:00 08/07/17 16:59 07/09/17 17:25 4 TAB Amoxicillin/ Clavulanate Potassium (Augmentin Tab) 500 mg BIDM PO 07/10/17 08:00 07/20/17 07:59 UNV Objective Vital Signs Date Time Temp Pulse Resp B/P (MAP) Pulse Ox O2 Delivery O2 Flow Rate FiO2 07/09/17 15:35 36.7 80 18 140/71 (94) 97 07/09/17 12:00 97 Room Air 07/09/17 11:49 36.7 80 18 142/74 (96) 97 Room Air 07/09/17 08:00 97 Room Air 07/09/17 04:26 37.0 65 18 123/67 (85) 97 Room Air 07/09/17 04:00 Room Air 07/09/17 00:09 Room Air 07/08/17 23:11 37.0 61 20 169/73 (105) 97 Room Air 07/08/17 21:12 60 168/72 (104) 95 Room Air 07/08/17 20:00 96 Room Air 07/08/17 19:07 36.6 61 18 167/72 (103) 96 Room Air 07/08/17 18:51 37.0 78 20 171/79 (109) 97 Room Air Physical Exam General Appearance: no apparent distress Respiratory/Chest: no respiratory distress, no accessory muscle use Cardiovascular: regular rate, rhythm, no edema, no murmur Abdomen: soft, + tenderness Laboratory Results Last 24 Hours Test 07/09/17 07:17 White Blood Count 5.44 K/uL Red Blood Count 3.84 M/uL Hemoglobin 11.0 g/dL Hematocrit 34.0 % Mean Corpuscular Volume 88.5 fL Mean Corpuscular Hemoglobin 28.6 pg Mean Corpuscular Hemoglobin Concent 32.4 g/dl RDW Standard Deviation 48.9 fL RDW Coefficient of Variation 15.1 % Platelet Count 240 K/uL Mean Platelet Volume 10.4 fL Prothrombin Time 18.7 SECONDS Prothromb Time International Ratio 1.8 Sodium Level 137 mmol/L Potassium Level 4.1 mmol/L Chloride Level 111 mmol/L Carbon Dioxide Level 22 mmol/L Anion Gap 4.0 mmol/L Blood Urea Nitrogen 7 mg/dl Creatinine 1.22 mg/dl Est Creatinine Clear Calc Drug Dose 23.4 ml/min Estimated GFR () 46.5 Estimated GFR (Non- 40.1 BUN/Creatinine Ratio 5.6 Random Glucose 88 mg/dl Calcium Level 8.1 mg/dl Magnesium Level 2.3 mg/dl Assessment and Plan This is an 87 year old female with a past medical history of tachy-enid syndrome s/p permanent pacemaker, paroxysmal atrial fibrillation on long-term anticoagulation, HTN, HLD, CKD stage 3, hypothyroidism, hx. of diverticulitis, hx. of syncope - presents with worsening abdominal pain; recurrent, acute diverticulitis New Onset C. Diff Colitis 07/09 - diarrhea improving - continue Dificid for a 10 day course 07/08 - C. diff is positive - diarrhea persistent and worsening - started on Dificid, appreciate ID input - 10 day course Recurrent, Acute Diverticulitis 07/09 - switch to Augmentin - possible d/c home in AM 07/08 - continue Zosyn, switch to Augmentin - continue low fiber diet for now 07/07 - continue conservative management - appreciate general surgery input - continue IV Zosyn, IV fluids - currently clear liquid diet, advance as per surgery 07/06 - CT abdomen - progressive proximal to mid sigmoid diverticulitis - appreciate GI input, at this point, we will consult general surgery due to recurrent nature of diverticulitis - continue Zosyn for now; IVFs Recurrent Syncopal Episodes Pain Mediated Vagal Syncope - pacemaker interrogation - patient has had issues with syncope/loss of consciousness - appreciate neuro input - continue IVFs and treat diverticulitis Hx. of tachy-enid syndrome s/p permanent pacemaker Paroxysmal A. Fib - continue b-ольга - INR goal of 2-3, holding Coumadin for now, awaiting surgery input DVT ppx - Coumadin, INR 2-3 FULL CODE
[2017-07-09] MEDS: AMOXICILLIN/CLAVULANATE TAB 500 MG TAB PO SCH (20:43)
[2017-07-09] MEDS: TAMSULOSIN HCL 0.4 MG CAP PO SCH (20:44)
[2017-07-09] MEDS: ROSUVASTATIN CALCIUM 10 MG TAB PO SCH (20:44)
[2017-07-09] MEDS: CITALOPRAM 20 MG TAB PO SCH (20:45)
[2017-07-09] MEDS: LEVOTHYROXINE 50 MCG TAB PO SCH (20:46)
[2017-07-09] MEDS ORDERED: HydrALAZINE HCL 20 MG/ML VIAL IV. ONE (23:00)
[2017-07-10] VITALS (7 sets, daily range): BP systolic 133–182; BP diastolic 65–80; PULSE 60–73; TEMP 36.5–37; O2SAT 96–99
[2017-07-10] MEDS: ACETAMINOPHEN 325 MG TAB PO PRN ×2 (04:08→23:38)
[2017-07-10] MEDS: NSS + 20MEQ KCL 1000ML 1,000 ML IV SCH ×2 (04:31→17:17)
[2017-07-10 06:13] LABS: HEMATOCRIT 34.1 % (37-47); MEAN CELL VOLUME 87.9 fL (80-100); MEAN CORPUSCULAR HEMOGLOBIN 28.4 pg (25-34); MEAN CORPUSCULAR HGB CONC 32.3 g/dl (32-36); PLATELET COUNT 242 K/uL (130-400); RED CELL DISTRIBUTION WIDTH CV 15.2 % (11.5-14.5); RED CELL DISTRIBUTION WIDTH SD 48.7 fL (36.4-46.3); WHITE BLOOD COUNT 6.31 K/uL (4.8-10.8)
[2017-07-10 06:26] LABS: INR 1.7 (0.9-1.1)
[2017-07-10 06:29] LABS: CALCIUM 8.5 mg/dl (8.5-10.1); CREATININE 0.99 mg/dl (0.60-1.20)
[2017-07-10] MEDS: AMOXICILLIN/CLAVULANATE TAB 500 MG TAB PO SCH ×2 (07:43→17:16)
[2017-07-10] MEDS: LACTOBACILLUS ACIDOPHILUS (FLORANEX) TAB PO SCH ×3 (07:43→17:17)
[2017-07-10] MEDS: METOPROLOL TARTRATE 25 MG TAB PO SCH ×2 (07:43→21:00)
[2017-07-10] MEDS: ROPINIROLE HCL 1 MG TAB PO SCH ×2 (07:43→21:01)
[2017-07-10] MEDS: FIDAXOMICIN TAB 200 MG TAB PO SCH ×2 (07:54→21:02)
--- NOTE | 2017-07-10 13:39 | Progress Note ---
Subjective Date of Service: July 10, 2017. Subjective Pt evaluation today including: conversation w/ patient, conversation w/ family , physical exam, lab review, review of studies, review of inpatient medication list Saw/examined the patient in room 285 She's doing well, diarrhea improving, abdominal pain improving States she does not feel ready to go home and would like to stay another day to make sure her symptoms improve Denies fevers/chills Problem List Medical Problems: (1) Anemia Status: Acute (2) Degenerative joint disease of knee, right Status: Acute (3) Diverticulitis Status: Acute (4) Failure of outpatient treatment Status: Acute (5) Subtherapeutic international normalized ratio (INR) Status: Acute (6) Syncope Status: Acute (7) Syncope Status: Acute (8) Urinary retention Status: Acute Review of Systems Constitutional: No fever, No chills Respiratory: No shortness of breath Cardiac: No chest pain Abdomen: + pain, + diarrhea, No nausea, No vomiting, No constipation, No GI bleeding Medications Current Inpatient Medications Medications (Trade) Dose Ordered Sig/Astrid Route Start Time Stop Time Status Last Admin Dose Admin Acetaminophen (Tylenol Tab) 650 mg Q4H PRN PO 07/06/17 02:15 08/05/17 02:14 07/10/17 04:08 650 MG Levothyroxine Sodium (Synthroid Tab) 50 mcg QPM PO 07/06/17 21:00 08/05/17 20:59 07/09/17 20:46 50 MCG Ropinirole HCl (Requip Tab) 0.5 mg BID PRN PO 07/06/17 02:15 08/05/17 02:14 07/07/17 20:26 0.5 MG Ropinirole HCl (Requip Tab) 1 mg BID PO 07/06/17 09:00 08/05/17 08:59 07/10/17 07:43 1 MG Rosuvastatin Calcium (Crestor Tab) 10 mg PM PO 07/06/17 21:00 08/05/17 20:59 07/09/17 20:44 10 MG Tamsulosin HCl (Flomax Cap) 0.4 mg QPM PO 07/06/17 21:00 08/05/17 20:59 07/09/17 20:44 0.4 MG Citalopram Hydrobromide (celeXA TAB) 10 mg HS PO 07/06/17 21:00 08/05/17 20:59 07/09/17 20:45 10 MG Miscellaneous Information (Order Awaiting Action) 1 ea QS N/A 07/06/17 08:00 08/05/17 07:59 Prochlorperazine Edisylate 5 mg/ Syringe 5 ml @ 5 mls/min Q6H PRN IV 07/06/17 02:15 08/05/17 02:14 Tramadol HCl (Ultram Tab) not relieved by tylenol @ Q6H PRN PO 07/06/17 02:15 08/05/17 02:14 07/06/17 03:05 50 MG Morphine Sulfate (MoRPHine SULFATE INJ) 2 mg Q3H PRN IV 07/06/17 02:15 07/20/17 02:14 Potassium Chloride/Sodium Chloride 1,000 ml @ 80 mls/hr [id number] IV 07/06/17 13:30 08/05/17 13:29 07/10/17 04:31 80 MLS/HR Metoprolol Tartrate (Lopressor Tab) 25 mg BID PO 07/06/17 21:00 08/05/17 20:59 07/10/17 07:43 25 MG Fidaxomicin (Dificid Tab) 200 mg BID PO 07/07/17 21:00 07/21/17 20:59 07/10/17 07:54 200 MG Lactobacillus Acidophilus (Floranex Tab) 4 tab TIDM PO 07/08/17 17:00 08/07/17 16:59 07/10/17 11:42 4 TAB Amoxicillin/ Clavulanate Potassium (Augmentin Tab) 500 mg BIDM PO 07/09/17 21:00 07/19/17 20:59 07/10/17 07:43 500 MG Warfarin Sodium (Coumadin Tab) 2 mg DAILY@16 PO 07/10/17 16:00 08/07/17 15:59 UNV Objective Vital Signs Date Time Temp Pulse Resp B/P (MAP) Pulse Ox O2 Delivery O2 Flow Rate FiO2 07/10/17 12:09 36.9 67 20 165/77 (106) 98 Room Air 07/10/17 12:00 Room Air 07/10/17 08:00 Room Air 07/10/17 07:18 36.6 60 22 150/74 (99) 99 Room Air 07/10/17 04:00 Room Air 07/10/17 03:43 36.5 62 16 136/76 (96) 96 Room Air 07/10/17 00:55 133/65 (87) 07/10/17 00:01 Room Air 07/09/17 23:31 36.8 68 16 186/83 (117) 96 Room Air 07/09/17 22:40 63 186/83 (117) 07/09/17 20:00 97 Room Air 07/09/17 19:21 36.7 64 18 185/81 (115) 96 Room Air 07/09/17 16:00 96 Room Air 07/09/17 15:35 36.7 80 18 140/71 (94) 97 Physical Exam General Appearance: no apparent distress Respiratory/Chest: chest non-tender, lungs clear, normal breath sounds, no respiratory distress, no accessory muscle use Cardiovascular: regular rate, rhythm, no edema, no murmur Abdomen: + tenderness Extremities: normal inspection, no pedal edema Neurologic/Psychiatric: no motor/sensory deficits, alert, normal mood/affect Laboratory Results Last 24 Hours Test 07/10/17 06:01 White Blood Count 6.31 K/uL Red Blood Count 3.88 M/uL Hemoglobin 11.0 g/dL Hematocrit 34.1 % Mean Corpuscular Volume 87.9 fL Mean Corpuscular Hemoglobin 28.4 pg Mean Corpuscular Hemoglobin Concent 32.3 g/dl RDW Standard Deviation 48.7 fL RDW Coefficient of Variation 15.2 % Platelet Count 242 K/uL Mean Platelet Volume 10.0 fL Prothrombin Time 17.4 SECONDS Prothromb Time International Ratio 1.7 Sodium Level 138 mmol/L Potassium Level 4.0 mmol/L Chloride Level 108 mmol/L Carbon Dioxide Level 22 mmol/L Anion Gap 8.0 mmol/L Blood Urea Nitrogen 8 mg/dl Creatinine 0.99 mg/dl Est Creatinine Clear Calc Drug Dose 28.9 ml/min Estimated GFR () 59.8 Estimated GFR (Non- 51.6 BUN/Creatinine Ratio 8.2 Random Glucose 91 mg/dl Calcium Level 8.5 mg/dl Assessment and Plan This is an 87 year old female with a past medical history of tachy-enid syndrome s/p permanent pacemaker, paroxysmal atrial fibrillation on long-term anticoagulation, HTN, HLD, CKD stage 3, hypothyroidism, hx. of diverticulitis, hx. of syncope - presents with worsening abdominal pain; recurrent, acute diverticulitis New Onset C. Diff Colitis 07/10 - as per patient, diarrhea improving, only one episode all morning - will continue Dificid for a 10 day course 07/09 - diarrhea improving - continue Dificid for a 10 day course 07/08 - C. diff is positive - diarrhea persistent and worsening - started on Dificid, appreciate ID input - 10 day course Recurrent, Acute Diverticulitis 07/10 - afebrile, no white count - doing well, minimal tenderness persists - plan to d/c home, but patient would like to stay until tomorrow, will d/c home on 07/11 07/09 - switch to Augmentin - possible d/c home in AM 07/08 - continue Zosyn, switch to Augmentin - continue low fiber diet for now 07/07 - continue conservative management - appreciate general surgery input - continue IV Zosyn, IV fluids - currently clear liquid diet, advance as per surgery 07/06 - CT abdomen - progressive proximal to mid sigmoid diverticulitis - appreciate GI input, at this point, we will consult general surgery due to recurrent nature of diverticulitis - continue Zosyn for now; IVFs Recurrent Syncopal Episodes Pain Mediated Vagal Syncope - pacemaker interrogation - patient has had issues with syncope/loss of consciousness - appreciate neuro input - continue IVFs and treat diverticulitis Hx. of tachy-enid syndrome s/p permanent pacemaker Paroxysmal A. Fib - continue b-ольга - INR goal of 2-3, holding Coumadin for now, awaiting surgery input DVT ppx - Coumadin, INR 2-3 FULL CODE
[2017-07-10] MEDS: WARFARIN SOD 2 MG TAB PO SCH (15:44)
[2017-07-10] MEDS: LEVOTHYROXINE 50 MCG TAB PO SCH (21:00)
[2017-07-10] MEDS: CITALOPRAM 20 MG TAB PO SCH (21:01)
[2017-07-10] MEDS: ROSUVASTATIN CALCIUM 10 MG TAB PO SCH (21:01)
[2017-07-10] MEDS: TAMSULOSIN HCL 0.4 MG CAP PO SCH (21:02)
[2017-07-11 00:38] VITALS: BP 147/68; PULSE 70
[2017-07-11 05:07] VITALS: BP 125/63; PULSE 66; TEMP 36.9; O2SAT 96
[2017-07-11] MEDS: NSS + 20MEQ KCL 1000ML 1,000 ML IV SCH ×2 (05:43→18:12)
[2017-07-11 06:38] LABS: HEMATOCRIT 32.8 % (37-47); HEMOGLOBIN 10.5 g/dL (12.0-16.0); MEAN CELL VOLUME 87.7 fL (80-100); MEAN CORPUSCULAR HEMOGLOBIN 28.1 pg (25-34); MEAN PLATELET VOLUME 10.5 fL (7.4-10.4); PLATELET COUNT 239 K/uL (130-400); RED CELL DISTRIBUTION WIDTH CV 15.1 % (11.5-14.5); RED CELL DISTRIBUTION WIDTH SD 48.9 fL (36.4-46.3); WHITE BLOOD COUNT 5.76 K/uL (4.8-10.8)
[2017-07-11 06:45] LABS: INR 1.6 (0.9-1.1)
[2017-07-11 07:02] LABS: CALCIUM 8.3 mg/dl (8.5-10.1); CREATININE 0.86 mg/dl (0.60-1.20); POTASSIUM 4.1 mmol/L (3.5-5.1)
[2017-07-11 07:11] VITALS: BP 163/76; PULSE 72; TEMP 36.8; O2SAT 96
[2017-07-11] MEDS: LACTOBACILLUS ACIDOPHILUS (FLORANEX) TAB PO SCH ×3 (08:02→18:11)
[2017-07-11] MEDS: AMOXICILLIN/CLAVULANATE TAB 500 MG TAB PO SCH ×2 (08:03→18:11)
[2017-07-11] MEDS: ROPINIROLE HCL 1 MG TAB PO SCH (08:04)
[2017-07-11] MEDS: METOPROLOL TARTRATE 25 MG TAB PO SCH (08:04)
[2017-07-11] MEDS: FIDAXOMICIN TAB 200 MG TAB PO SCH ×2 (10:12→18:10)
--- NOTE | 2017-07-11 10:31 | Progress Note ---
Subjective Date of Service: July 11, 2017. Subjective Pt evaluation today including: conversation w/ patient, physical exam, lab review, review of studies, review of inpatient medication list Saw/examined the patient in room 285 She's doing well, diarrhea slowing and becoming more formed Denies any chest pain/shortness of breath +anxious about blood pressure issues Problem List Medical Problems: (1) Anemia Status: Acute (2) Degenerative joint disease of knee, right Status: Acute (3) Diverticulitis Status: Acute (4) Failure of outpatient treatment Status: Acute (5) Subtherapeutic international normalized ratio (INR) Status: Acute (6) Syncope Status: Acute (7) Syncope Status: Acute (8) Urinary retention Status: Acute Review of Systems Constitutional: No fever, No chills Respiratory: No cough, No sputum, No shortness of breath Cardiac: No chest pain, No edema, No palpitations Heme: No abnormal bleeding/bruising Medications Current Inpatient Medications Medications (Trade) Dose Ordered Sig/Astrid Route Start Time Stop Time Status Last Admin Dose Admin Acetaminophen (Tylenol Tab) 650 mg Q4H PRN PO 07/06/17 02:15 08/05/17 02:14 07/10/17 23:38 650 MG Levothyroxine Sodium (Synthroid Tab) 50 mcg QPM PO 07/06/17 21:00 08/05/17 20:59 07/10/17 21:00 50 MCG Ropinirole HCl (Requip Tab) 0.5 mg BID PRN PO 07/06/17 02:15 08/05/17 02:14 07/07/17 20:26 0.5 MG Ropinirole HCl (Requip Tab) 1 mg BID PO 07/06/17 09:00 08/05/17 08:59 07/11/17 08:04 1 MG Rosuvastatin Calcium (Crestor Tab) 10 mg PM PO 07/06/17 21:00 08/05/17 20:59 07/10/17 21:01 10 MG Tamsulosin HCl (Flomax Cap) 0.4 mg QPM PO 07/06/17 21:00 08/05/17 20:59 07/10/17 21:02 0.4 MG Citalopram Hydrobromide (celeXA TAB) 10 mg HS PO 07/06/17 21:00 08/05/17 20:59 07/10/17 21:01 10 MG Miscellaneous Information (Order Awaiting Action) 1 ea QS N/A 07/06/17 08:00 08/05/17 07:59 Prochlorperazine Edisylate 5 mg/ Syringe 5 ml @ 5 mls/min Q6H PRN IV 07/06/17 02:15 08/05/17 02:14 Tramadol HCl (Ultram Tab) not relieved by tylenol @ Q6H PRN PO 07/06/17 02:15 08/05/17 02:14 07/06/17 03:05 50 MG Morphine Sulfate (MoRPHine SULFATE INJ) 2 mg Q3H PRN IV 07/06/17 02:15 07/20/17 02:14 Potassium Chloride/Sodium Chloride 1,000 ml @ 80 mls/hr [id number] IV 07/06/17 13:30 08/05/17 13:29 07/11/17 05:43 80 MLS/HR Metoprolol Tartrate (Lopressor Tab) 25 mg BID PO 07/06/17 21:00 08/05/17 20:59 07/11/17 08:04 25 MG Fidaxomicin (Dificid Tab) 200 mg BID PO 07/07/17 21:00 07/21/17 20:59 07/11/17 10:12 200 MG Lactobacillus Acidophilus (Floranex Tab) 4 tab TIDM PO 07/08/17 17:00 08/07/17 16:59 07/11/17 08:02 4 TAB Amoxicillin/ Clavulanate Potassium (Augmentin Tab) 500 mg BIDM PO 07/09/17 21:00 07/19/17 20:59 07/11/17 08:03 500 MG Warfarin Sodium (Coumadin Tab) 2 mg DAILY@16 PO 07/10/17 16:00 08/07/17 15:59 07/10/17 15:44 2 MG Objective Vital Signs Date Time Temp Pulse Resp B/P (MAP) Pulse Ox O2 Delivery O2 Flow Rate FiO2 07/11/17 07:11 36.8 72 20 163/76 (105) 96 Room Air 07/11/17 05:07 36.9 66 18 125/63 (83) 96 Room Air 07/11/17 04:00 Room Air 07/11/17 00:38 70 147/68 (94) 07/11/17 00:02 Room Air 07/10/17 23:36 37.0 73 18 182/80 (114) 97 Room Air 07/10/17 20:00 Room Air 07/10/17 19:01 37.0 61 18 176/78 (110) 98 Room Air 07/10/17 16:00 Room Air 07/10/17 15:23 36.9 61 18 158/73 (101) 98 Room Air 07/10/17 12:09 36.9 67 20 165/77 (106) 98 Room Air 07/10/17 12:00 Room Air Physical Exam General Appearance: no apparent distress Respiratory/Chest: chest non-tender, lungs clear, normal breath sounds, no respiratory distress, no accessory muscle use Cardiovascular: regular rate, rhythm, no edema, no murmur Neurologic/Psychiatric: no motor/sensory deficits, alert, normal mood/affect Laboratory Results Last 24 Hours Test 07/11/17 06:23 White Blood Count 5.76 K/uL Red Blood Count 3.74 M/uL Hemoglobin 10.5 g/dL Hematocrit 32.8 % Mean Corpuscular Volume 87.7 fL Mean Corpuscular Hemoglobin 28.1 pg Mean Corpuscular Hemoglobin Concent 32.0 g/dl RDW Standard Deviation 48.9 fL RDW Coefficient of Variation 15.1 % Platelet Count 239 K/uL Mean Platelet Volume 10.5 fL Prothrombin Time 17.1 SECONDS Prothromb Time International Ratio 1.6 Sodium Level 139 mmol/L Potassium Level 4.1 mmol/L Chloride Level 111 mmol/L Carbon Dioxide Level 22 mmol/L Anion Gap 6.0 mmol/L Blood Urea Nitrogen 8 mg/dl Creatinine 0.86 mg/dl Est Creatinine Clear Calc Drug Dose 33.5 ml/min Estimated GFR () 70.9 Estimated GFR (Non- 61.2 BUN/Creatinine Ratio 9.2 Random Glucose 85 mg/dl Calcium Level 8.3 mg/dl Magnesium Level 2.1 mg/dl Assessment and Plan This is an 87 year old female with a past medical history of tachy-enid syndrome s/p permanent pacemaker, paroxysmal atrial fibrillation on long-term anticoagulation, HTN, HLD, CKD stage 3, hypothyroidism, hx. of diverticulitis, hx. of syncope - presents with worsening abdominal pain; recurrent, acute diverticulitis New Onset C. Diff Colitis 07/11 - she has gotten 8 doses of Dificid - will need 20 total doses, will d/c with Dificid 07/10 - as per patient, diarrhea improving, only one episode all morning - will continue Dificid for a 10 day course 07/09 - diarrhea improving - continue Dificid for a 10 day course 07/08 - C. diff is positive - diarrhea persistent and worsening - started on Dificid, appreciate ID input - 10 day course Recurrent, Acute Diverticulitis 07/11 - on Augmentin; will d/c with about 7 more days of the abx. 07/10 - afebrile, no white count - doing well, minimal tenderness persists - plan to d/c home, but patient would like to stay until tomorrow, will d/c home on 07/11 07/09 - switch to Augmentin - possible d/c home in AM 07/08 - continue Zosyn, switch to Augmentin - continue low fiber diet for now 07/07 - continue conservative management - appreciate general surgery input - continue IV Zosyn, IV fluids - currently clear liquid diet, advance as per surgery 07/06 - CT abdomen - progressive proximal to mid sigmoid diverticulitis - appreciate GI input, at this point, we will consult general surgery due to recurrent nature of diverticulitis - continue Zosyn for now; IVFs Recurrent Syncopal Episodes Pain Mediated Vagal Syncope - pacemaker interrogation - patient has had issues with syncope/loss of consciousness - appreciate neuro input - continue IVFs and treat diverticulitis Hx. of tachy-enid syndrome s/p permanent pacemaker Paroxysmal A. Fib - continue b-ольга - INR goal of 2-3, holding Coumadin for now, awaiting surgery input DVT ppx - Coumadin, INR 2-3 FULL CODE
[2017-07-11 11:21] VITALS: BP 161/83; PULSE 68; TEMP 36.4; O2SAT 99
[2017-07-11] MEDS ORDERED: DFC200 PO (14:15)
[2017-07-11] MEDS ORDERED: AMOX1TAB42 PO (14:15)
--- NOTE | 2017-07-11 14:26 | Discharge Instructions ---
Discharge Instructions Date of Service July 11, 2017. Admission Reason for Admission: Diverticulitis, Syncope, Syncope And Collapse Discharge Discharge Diagnosis / Problem: Acute Diverticulitis, C. Diff colitis, Syncope Discharge Goals Goal(s): Decrease discomfort, Improve function, Diagnostic testing, Therapeutic intervention Activity Recommendations Activity Limitations: resume your previous activity . Instructions / Follow-Up Instructions / Follow-Up Please follow-up with Dr. Vogel on July 15 at 2:45PM * You will be discharged on Dificid 200mg twice daily for the next 5 days (11 tablets) * You will stop being infectious and contagious once the diarrhea resolves * You will also be discharged on Augmentin (antibiotic) for the diverticulitis - take this twice daily for 7 days * You should follow a low fiber diet for two weeks; afterwards, we will switch to a high fiber diet * Follow-up with general surgery as an outpatient Definition A diverticulitis diet is something your doctor might recommend as part of a short-term treatment plan for acute diverticulitis. Diverticula are small, bulging pouches that can form in the lining of the digestive system. They're found most often in the lower part of the large intestine (colon). This condition is called diverticulosis. In some cases, one or more of the pouches become inflamed or infected. This is known as diverticulitis. Mild cases of diverticulitis are usually treated with antibiotics and a diverticulitis diet, which includes clear liquids and low-fiber foods. More- severe cases typically require hospitalization. Purpose A diverticulitis diet is a temporary measure to give your digestive system a chance to rest. Oral intake is usually reduced until bleeding and diarrhea subside. Diet details As you start feeling better, your doctor will recommend that you slowly add low- fiber foods. Examples of low-fiber foods include: Canned or cooked fruits without skin or seeds Canned or cooked vegetables such as green beans, carrots and potatoes (without the skin) Eggs, fish and poultry Refined white bread Fruit and vegetable juice with no pulp Low-fiber cereals Milk, yogurt and cheese White rice, pasta and noodles Current Hospital Diet Patient's current hospital diet: Low Fiber Diet Discharge Diet Recommended Diet: Low Fiber Diet Pending Studies Studies pending at discharge: no Medical Emergencies . Who to Call and When: Medical Emergencies: If at any time you feel your situation is an emergency, please call 911 immediately. . Non-Emergent Contact Non-Emergency issues call your: Primary Care Provider, Surgeon . . "Provider Documentation" section prepared by Tesfaye Mccray. . Filling Winder Recommendations Filling Winder Recommendations: Patient should follow-up with Dr. Car (General Surgery) in 2 weeks after her discharge for further evaluation and management of her diverticulitis once c. difficile infection is controlled. Please call office at [phone] to make an appointment.
--- NOTE | 2017-07-11 14:29 | Discharge Summary ---
Discharge Summary Date of Service July 11, 2017. Discharge Summary Admission Date: July 06, 2017 at 01:18 Discharge Date: July 11, 2017 Discharge Disposition: Home Principal Diagnosis: New Onset C. Diff Colitis Recurrent, Acute Diverticulitis Recurrent Syncopal Episodes Pain Mediated Vagal Syncope Hx. of tachy-enid syndrome s/p permanent pacemaker Paroxysmal A. Fib Medication Reconciliation New Medications: Amoxicillin & Pot Clavulanate (Amoxicillin/Clavulanate P) 1 Tab Tab 500 MG PO BIDM for 7 Days, #14 TAB Fidaxomicin (Dificid) 200 Mg Tab 200 MG PO BID for 5 Days, #11 TAB Continued Medications: Acetaminophen Tab (Tylenol) 325 Mg Tab 650 MG PO Q6H PRN for Pain Citalopram Hydrobromide (Citalopram Hydrobromide) 10 Mg Tab 10 MG PO HS Clobetasol Propionate (Temovate) 0.05 % Cre 1 APPLN TOP BID PRN for Rash,Itching and Flares Lactic Acid (Ammonium Lactate) (Ammonium Lactate) 12 % Lot 1 APPLN TOP BID PRN for Affected Area(s) Levocetirizine Dihydrochloride (Levocetirizine Dihydrochl) 5 Mg Tab 5 MG PO DAILY PRN for Allergic Reaction Levothyroxine Sodium (Synthroid) 50 Mcg Tab 50 MCG PO QPM Loperamide Hcl (Imodium) 2 Mg Cap 2 MG PO UD PRN for Diarrhea TAKE ONE CAPSULE AFTER EACH LOOSE BOWEL MOVEMENT. DO NOT EXCEED MORE THAN 8 CAPSULES DAILY. Meclizine HCl (Meclizine HCl) 25 Mg Tab 12.5 MG PO UD PRN for Dizziness or Vertigo TAKE NEEDED FOR DIZZINESS/VERTIGO Metoprolol Tartrate (Lopressor) (Lopressor) 50 Mg Tab 25 MG PO BID Metronidazole (Topical) (Metrocream) 0.75 % Cre 1 APPLN TOP DAILY PRN for UNDECIDED APPLY TO FACE DIRECTED Nitroglycerin (Nitrostat) 0.4 Mg Tab 0.4 MG UT UD PRN for Chest Pain PLACE ONE TABLET UNDER THE TONGUE Ondansetron (Ondansetron HCl) 8 Mg Tab 8 MG PO Q8H PRN for Nausea Probiotic Product (Probiotic) 1 Tab Tab 2 TABS DAILY Ropinirole (Requip) 0.5 Mg Tab 0.5 MG PO QAM TAKE ONE TABLET EVERY MORNING AND AN ADDITONAL TABLET DURING THE DAY IF NEEDED Ropinirole (Requip) 1 Mg Tab 1 MG PO BID TAKE THIS MEDICATION WITH EVENING MEAL AND AT BEDTIME Ropinirole (Requip) 0.5 Mg Tab 0.5 MG PO BID PRN for , TAB Rosuvastatin Calcium (Crestor) 10 Mg Tab 10 MG PO PM Tamsulosin HCl (Tamsulosin HCl) 0.4 Mg Cap 0.4 MG PO QPM Warfarin Sod (Jantoven) 1 Mg Tab 1 MG PO 5XWK TAKE ON WED, , WED, , WED Warfarin Sodium (Warfarin Sodium) 1 Mg Tab 2 MG PO 2XWK TAKE 2 MG MON & FRI OR OTHERWISE DIRECETED TO TAKE BY ANTICOAGULATION CLINIC/MD Discontinued Medications: Doxycycline Hyclate (Doxycycline Hyclate) 50 Mg Cap 50 MG PO QAM Metronidazole (Metronidazole) 500 Mg Tab 500 MG PO BID Admission Information HPI (per Admitting provider): This is an 87 year old female with a past medical history of tachy-enid syndrome s/p permanent pacemaker, paroxysmal atrial fibrillation on long-term anticoagulation, HTN, HLD, CKD stage 3, hypothyroidism, hx. of diverticulitis, hx. of syncope - presents with worsening abdominal pain; recurrent, acute diverticulitis New Onset C. Diff Colitis 07/11 - she has gotten 8 doses of Dificid - will need 20 total doses, will d/c with Dificid 07/10 - as per patient, diarrhea improving, only one episode all morning - will continue Dificid for a 10 day course 07/09 - diarrhea improving - continue Dificid for a 10 day course 07/08 - C. diff is positive - diarrhea persistent and worsening - started on Dificid, appreciate ID input - 10 day course Recurrent, Acute Diverticulitis 07/11 - on Augmentin; will d/c with about 7 more days of the abx. 07/10 - afebrile, no white count - doing well, minimal tenderness persists - plan to d/c home, but patient would like to stay until tomorrow, will d/c home on 07/11 07/09 - switch to Augmentin - possible d/c home in AM 07/08 - continue Zosyn, switch to Augmentin - continue low fiber diet for now 07/07 - continue conservative management - appreciate general surgery input - continue IV Zosyn, IV fluids - currently clear liquid diet, advance as per surgery 07/06 - CT abdomen - progressive proximal to mid sigmoid diverticulitis - appreciate GI input, at this point, we will consult general surgery due to recurrent nature of diverticulitis - continue Zosyn for now; IVFs Recurrent Syncopal Episodes Pain Mediated Vagal Syncope - pacemaker interrogation - patient has had issues with syncope/loss of consciousness - appreciate neuro input - continue IVFs and treat diverticulitis Hx. of tachy-enid syndrome s/p permanent pacemaker Paroxysmal A. Fib - continue b-ольга - INR goal of 2-3, holding Coumadin for now, awaiting surgery input DVT ppx - Coumadin, INR 2-3 FULL CODE Hospital Course This is an 87 year old female with a past medical history of tachy-enid syndrome s/p permanent pacemaker, paroxysmal atrial fibrillation on long-term anticoagulation, HTN, HLD, CKD stage 3, hypothyroidism, hx. of diverticulitis, hx. of syncope - presents with worsening abdominal pain; recurrent, acute diverticulitis New Onset C. Diff Colitis 07/11 - she has gotten 8 doses of Dificid - will need 20 total doses, will d/c with Dificid 07/10 - as per patient, diarrhea improving, only one episode all morning - will continue Dificid for a 10 day course 07/09 - diarrhea improving - continue Dificid for a 10 day course 07/08 - C. diff is positive - diarrhea persistent and worsening - started on Dificid, appreciate ID input - 10 day course Recurrent, Acute Diverticulitis 07/11 - on Augmentin; will d/c with about 7 more days of the abx. 07/10 - afebrile, no white count - doing well, minimal tenderness persists - plan to d/c home, but patient would like to stay until tomorrow, will d/c home on 07/11 07/09 - switch to Augmentin - possible d/c home in AM 07/08 - continue Zosyn, switch to Augmentin - continue low fiber diet for now 07/07 - continue conservative management - appreciate general surgery input - continue IV Zosyn, IV fluids - currently clear liquid diet, advance as per surgery 07/06 - CT abdomen - progressive proximal to mid sigmoid diverticulitis - appreciate GI input, at this point, we will consult general surgery due to recurrent nature of diverticulitis - continue Zosyn for now; IVFs Recurrent Syncopal Episodes Pain Mediated Vagal Syncope - pacemaker interrogation - patient has had issues with syncope/loss of consciousness - appreciate neuro input - continue IVFs and treat diverticulitis Hx. of tachy-enid syndrome s/p permanent pacemaker Paroxysmal A. Fib - continue b-ольга - INR goal of 2-3, holding Coumadin for now, awaiting surgery input DVT ppx - Coumadin, INR 2-3 FULL CODE Total time spent on discharge = 50 minutes This includes examination of the patient, discharge planning, medication reconciliation, and communication with other providers. Discharge Instructions Please follow-up with Dr. Vogel on July 15 at 2:45PM * You will be discharged on Dificid 200mg twice daily for the next 5 days (11 tablets) * You will stop being infectious and contagious once the diarrhea resolves * You will also be discharged on Augmentin (antibiotic) for the diverticulitis - take this twice daily for 7 days * You should follow a low fiber diet for two weeks; afterwards, we will switch to a high fiber diet * Follow-up with general surgery as an outpatient Definition A diverticulitis diet is something your doctor might recommend as part of a short-term treatment plan for acute diverticulitis. Diverticula are small, bulging pouches that can form in the lining of the digestive system. They're found most often in the lower part of the large intestine (colon). This condition is called diverticulosis. In some cases, one or more of the pouches become inflamed or infected. This is known as diverticulitis. Mild cases of diverticulitis are usually treated with antibiotics and a diverticulitis diet, which includes clear liquids and low-fiber foods. More- severe cases typically require hospitalization. Purpose A diverticulitis diet is a temporary measure to give your digestive system a chance to rest. Oral intake is usually reduced until bleeding and diarrhea subside. Diet details As you start feeling better, your doctor will recommend that you slowly add low- fiber foods. Examples of low-fiber foods include: Canned or cooked fruits without skin or seeds Canned or cooked vegetables such as green beans, carrots and potatoes (without the skin) Eggs, fish and poultry Refined white bread Fruit and vegetable juice with no pulp Low-fiber cereals Milk, yogurt and cheese White rice, pasta and noodles
[2017-07-11 14:47] VITALS: BP 168/76; PULSE 63; TEMP 36.6; O2SAT 98
[2017-07-11 17:39] VITALS: BP 168/76; PULSE 63; TEMP 36.6; O2SAT 98
[2017-07-11] MEDS: WARFARIN SOD 2 MG TAB PO SCH (18:20)
== END 2017-07-11 19:15 | disposition home health service (06) | DRG 372 ==
LOC: EDBD 17:51 → C.EDB 17:52 → C.MED 07-06 01:18 → UNDOADMIN 07-06 01:18 → ENRESERV 07-06 01:27 → C.MED 07-06 14:34
PROVIDERS: ADMIT Internal Medicine; ATTEND Family Medicine
DX: A04.72 Enterocolitis due to Clostridium difficile, not specified as recurrent (principal); K57.32 Diverticulitis of large intestine without perforation or abscess without bleeding; I50.32 Chronic diastolic (congestive) heart failure; I13.0 Hypertensive heart and chronic kidney disease with heart failure and stage 1 through stage 4 chronic kidney disease, or unspecified chronic kidney disease; R55 Syncope and collapse; I48.0 Paroxysmal atrial fibrillation; N18.3 Chronic kidney disease, stage 3 (moderate); E78.5 Hyperlipidemia, unspecified; E03.9 Hypothyroidism, unspecified; D64.9 Anemia, unspecified; G25.81 Restless legs syndrome; F41.1 Generalized anxiety disorder; Z95.0 Presence of cardiac pacemaker; Z79.01 Long term (current) use of anticoagulants; Z79.2 Long term (current) use of antibiotics; Z79.899 Other long term (current) drug therapy; Z88.1 Allergy status to other antibiotic agents; Z88.2 Allergy status to sulfonamides; Z88.7 Allergy status to serum and vaccine; Z88.8 Allergy status to other drugs, medicaments and biological substances; Z91.048 Other nonmedicinal substance allergy status

== ENCOUNTER 2019-05-31 20:45 | Observation (INO) ==
[2019-05-31] MEDS ORDERED: OPTIRAY 320 125ml IV PRN (21:07)
--- NOTE | 2019-05-31 21:15 | Emergency Department Note ---
History of Present Illness General Chief complaint: Stroke/CVA Symptoms Stated complaint: SYNCOPE, CHEST PAIN Time Seen by Provider: 05/31/19 20:48 Source: patient and family Mode of arrival: EMS Limitations: altered mental status History of Present Illness Provider complaint: Unresponsive Onset (ago): hour(s) (1939 today) Location: head Severity: moderate Pain Consistency: + now resolved Quality: + other (Awake but nonverbal) Associated symptoms: + confusion and + chest pain (Unable to describe); no cough, no fever/chills, no headaches, no malaise, no nausea/vomiting, no seizure and no shortness of breath This is an 89-year-old female brought in by EMS after the patient had an unresponsive episode. According to the patient's daughter Jason Keith the patient was making Easter candy this evening. The patient was sitting on the floor and then she lay back onto the ground. She did not hit her head but at that time she was unresponsive. She was awake but would not speak to anybody. She would not squeeze her fingers or say anything. The patient did not her head when asked if she recognized her daughter. The symptoms seem to have lasted for a minute or 2. According to the nurse EMS noted that she had some weakness to the right arm as well as a possible right facial droop. On arrival to the ED no weakness or droop was noted. The patient states that when she landed ground she did develop some chest pain. She cannot describe where it is or the quality of the pain. She denies any headache. She denies any fever or flulike symptoms. She has had no recent travel or exposure to sick individuals. She denies any abdominal pain. Her daughter states that she has had no recent illness or complaints during the day. Home Medications Home Medications Medication Instructions Recorded Confirmed Type acidophilus-pectin, citrus 1 cap PO DAILY 12/25/17 05/31/19 History [Acidophilus Probiotic] digoxin 0.125 mg PO 3XWK 12/25/17 05/31/19 History famotidine 20 mg PO BID PRN 12/25/17 05/31/19 History levocetirizine 5 mg PO HS 12/25/17 05/31/19 History levothyroxine 50 mcg PO DAILYBB 12/25/17 05/31/19 History loperamide 2 mg PO DIRECTED PRN MDD 16 12/25/17 05/31/19 History MG/24 HOURS nitroglycerin 0.4 mg SUBLINGUAL DIRECTED PRN 12/25/17 05/31/19 History ondansetron 4 mg TRANSLINGUAL QID PRN 12/25/17 05/31/19 History rosuvastatin 10 mg PO HS 12/25/17 05/31/19 History warfarin 1 mg PO 5XWK 12/25/17 05/31/19 History betamethasone dipropionate 1 applic TOPICAL BID PRN 01/02/18 05/31/19 History diphenhydramine-zinc acetate [Itch 1 applic TOPICAL QID PRN 01/02/18 05/31/19 History Relief] acetaminophen [Tylenol] 650 mg PO Q6H PRN 08/21/18 05/31/19 History amiodarone 200 mg PO DAILY 08/21/18 05/31/19 History hydroxyzine HCl 25 mg PO Q6 PRN 08/21/18 05/31/19 History ropinirole 1 mg PO HS PRN 08/21/18 05/31/19 History cholecalciferol (vitamin D3) 50 mcg PO DAILY 05/31/19 05/31/19 History [Vitamin D3] escitalopram oxalate 5 mg PO DAILY 05/31/19 05/31/19 History iron,carbonyl-vitamin C [Vitron-C] 1 tab PO DAILY 05/31/19 05/31/19 History metoprolol succinate 25 mg PO DAILY 05/31/19 05/31/19 History ropinirole 0.5 mg PO TID PRN 05/31/19 05/31/19 History warfarin 2 mg PO 2XWK 05/31/19 05/31/19 History Allergies Allergy/AdvReac Type Severity Reaction Status Date / Time ciprofloxacin Allergy Intermediate RASH Verified 05/31/19 22:57 Sulfa (Sulfonamide Allergy Intermediate HIVES, RASH Verified 05/31/19 22:57 Antibiotics) adhesive Allergy Unknown ADHESIVE Verified 08/21/18 21:14 TAPE Cipro Allergy Unknown RASH Verified 10/25/17 05:26 estrogens, conjugated Allergy Unknown SEVERE Verified 05/31/19 22:58 RASH, PAINFUL FROM VAGINAL CREAM tetanus toxoid, adsorbed Allergy Unknown UNKNOWN Verified 05/31/19 22:58 Past Med/Surg History Medical History Atrial fibrillation (Chronic) Chronic diastolic CHF (congestive heart failure) (Chronic) CKD (chronic kidney disease), stage III (Chronic) Diverticular disease of colon (Chronic) Dyslipidemia (Chronic) HTN (hypertension) (Chronic) HTN (hypertension) (Chronic) Hypothyroidism (Chronic) Pacemaker (Chronic) RLS (restless legs syndrome) (Chronic) Rosacea (Chronic) SVT (supraventricular tachycardia) (Chronic) Tachy-enid syndrome (Chronic) Surgical History History of carpal tunnel surgery (Chronic) History of cataract surgery (Chronic) History of colon resection (Resolved) History of hysterectomy (Chronic) History of tonsillectomy and adenoidectomy (Chronic) History of total right knee replacement (Chronic) S/P laparoscopic-assisted sigmoidectomy (Chronic) S/P ELISHA (total abdominal hysterectomy) (Chronic) Family History Other No pertinent family history Social History Preferred Language: [place] Communication Ability: Effective Visual Impairment: No Limitations Steward/Stewardess Third Required: No Beliefs That Will Affect Care: None marital status: / Current Living Situation: Family Feels Safe at Home: Yes Smoking Status: Never smoker Hx Alcohol Use: No Hx Substance Use: No Review of Systems See HPI for pertinent positives & negatives. Unobtainable due to cognitive status Physical Exam Vital Signs Vital Signs - 24 hr 05/31/19 20:45 05/31/19 21:20 05/31/19 21:22 Temperature 36.5 C Temperature Source Oral Pulse Rate 65 61 61 Pulse Rate from SpO2 Sensor 61 61 Respiratory Rate 22 26 H 24 Blood Pressure 182/78 H 189/69 H Blood Pressure Mean 112 85 Pulse Oximetry 98 100 100 Oxygen Delivery Method Room Air Room Air Room Air Sepsis Recent Fever Within 48 Hours No Sepsis New/Unexplained Change in Mental Status Yes Sepsis Action Taken by Nursing No Action Required 05/31/19 21:31 05/31/19 22:02 05/31/19 22:16 Temperature Temperature Source Pulse Rate 60 61 76 Pulse Rate from SpO2 Sensor Respiratory Rate 22 17 19 Blood Pressure 173/75 H 176/87 H 170/91 H Blood Pressure Mean 125 122 94 Pulse Oximetry 100 98 96 Oxygen Delivery Method Sepsis Recent Fever Within 48 Hours Sepsis New/Unexplained Change in Mental Status Sepsis Action Taken by Nursing 05/31/19 22:45 05/31/19 23:00 05/31/19 23:01 Temperature Temperature Source Pulse Rate 65 66 63 Pulse Rate from SpO2 Sensor 66 63 Respiratory Rate 21 20 24 Blood Pressure 178/85 H 180/80 H Blood Pressure Mean 97 115 Pulse Oximetry 97 98 98 Oxygen Delivery Method Sepsis Recent Fever Within 48 Hours Sepsis New/Unexplained Change in Mental Status Sepsis Action Taken by Nursing 05/31/19 23:16 05/31/19 23:30 05/31/19 23:31 Temperature Temperature Source Pulse Rate 72 72 65 Pulse Rate from SpO2 Sensor 72 71 64 Respiratory Rate 15 14 19 Blood Pressure 122/79 112/73 Blood Pressure Mean 97 79 Pulse Oximetry 97 92 95 Oxygen Delivery Method Sepsis Recent Fever Within 48 Hours Sepsis New/Unexplained Change in Mental Status Sepsis Action Taken by Nursing 05/31/19 23:46 06/01/19 00:00 06/01/19 00:01 Temperature Temperature Source Pulse Rate 82 68 63 Pulse Rate from SpO2 Sensor 82 69 63 Respiratory Rate 16 18 19 Blood Pressure 155/114 H 157/61 H Blood Pressure Mean 127 73 Pulse Oximetry 95 94 96 Oxygen Delivery Method Sepsis Recent Fever Within 48 Hours Sepsis New/Unexplained Change in Mental Status Sepsis Action Taken by Nursing Constitutional: Vital signs reviewed. Eyes: Pupils are equal round reactive to light. Conjunctiva are noninjected. ENT: Pharynx is clear without erythema or exudate. Mucous membranes are moist. Neck supple without meningeal signs. Respiratory: Scattered wheezing bilaterally. Breath sounds are equal bilaterally. Cardiovascular: Regular rate and rhythm. No rubs or gallops. GI: Soft, nondistended and nontender. Bowel sounds are present. Musculoskeletal: No peripheral edema. No lower extremity tenderness. Integumentary: No cyanosis. or jaundice. Neurologic: The patient is awake and alert. Cranial nerves II-XII are intact. Motor is 5 out of 5 all extremities. Sensation is intact to light touch all extremities. Normal speech. No pronator drift. Psychiatric: Normal affect. Not anxious appearing. Course Administered Medications Ioversol (Optiray 320 125ml) 119 ml IV ONCE PRN PRN Reason: Interaction Checking Stop: 06/04/19 21:06 Last Admin: 05/31/19 21:08 Dose: 119 ml Documented by: [id number] Discontinued Medications Ropinirole HCl (Requip) 1 mg PO NOW STA Stop: 06/01/19 00:06 Last Admin: 06/01/19 00:14 Dose: 1 mg Documented by: [id number] Medical Decision Making Differential Diagnosis Stroke, seizure, TIA, intracranial mass, ICH, metabolic derangement, [place] Medical Records Attestation: I reviewed the patient's medical records. I did perform a limited focused review of portions of the patient's old chart on the electronic medical record. The patient has had no recent pertinent visits to this hospital. Home Medications Current Medication List: was personally reviewed by me Laboratory Data Attestation: I reviewed the patient's lab results. Result diagrams: 05/31/19 21:36 05/31/19 21:36 Lab Results 05/31/19 05/31/19 05/31/19 Range/Units 20:59 21:25 21:36 WBC (4.8-10.8) K/uL RBC (4.2-5.4) M/uL Hgb (12.0-16.0) g/dL Hct (37-47) % MCV (80-100) fL MCH (25-34) pg MCHC (32-36) g/dL RDW Std Deviation (36.4-46.3) fL RDW Coeff of [place] (11.5-14.5) % Plt Count (130-400) K/uL MPV (7.4-10.4) fL Immature Gran % (Auto) % Neut % (Auto) % Lymph % (Auto) % [place] % (Auto) % Eos % (Auto) % Baso % (Auto) % Immature Gran # (Auto) (0.00-0.02) K/uL Neut # (Auto) (1.4-6.5) K/uL Lymph # (Auto) (1.2-3.4) K/uL [place] # (Auto) (0.11-0.59) K/uL Eos # (Auto) (0-0.5) K/uL Baso # (Auto) (0-0.2) K/uL PT (9.0-12.0) Seconds POC INR 2.5 H (0.9-1.1) INR (0.9-1.1) APTT (21.0-31.0) Seconds PTT Ratio Sodium (136-145) mmol/L Potassium (3.5-5.1) mmol/L Chloride (98-107) mmol/L Carbon Dioxide (21-32) mmol/L Anion Gap (3-11) BUN (7-18) mg/dl Creatinine (0.6-1.2) mg/dl Est Cr Clr Drug Dosing ml/min Est GFR ( Amer) Est GFR (Non-Af Amer) BUN/Creatinine Ratio (10-20) Glucose (70-99) mg/dl POC Glucose 99 (70-99) mg/dl Calcium (8.5-10.1) mg/dl Magnesium (1.8-2.4) mg/dl Total Bilirubin (0.2-1) mg/dl AST (15-37) U/L ALT (12-78) U/L Alkaline Phosphatase (45-117) U/L Troponin I (0-0.045) ng/ml Total Protein (6.4-8.2) gm/dl Albumin (3.4-5.0) gm/dl Globulin (2.5-4.0) gm/dl Albumin/Globulin Ratio (0.9-2) Urine Color Urine Appearance (Clear) Urine pH (4.5-7.5) Ur Specific [place] (1.000-1.030) Urine Protein (Negative) Urine Glucose (UA) (Negative) Urine Ketones (Negative) Urine Blood (Negative) Urine Nitrite (Negative) Urine Bilirubin (Negative) Urine Urobilinogen (Negative) Ur Leukocyte Esterase (Negative) Urine WBC (Auto) (0-5) /hpf Urine RBC (Auto) (0-4) /hpf U Hyaline Cast (Auto) (0-5) /lpf U Epithel Cells (Auto) (0-5) /lpf Urine Bacteria (Auto) (Negative) Blood Type A Positive Antibody Screen NEGATIVE 05/31/19 05/31/19 05/31/19 Range/Units 21:36 21:36 21:36 WBC 6.57 (4.8-10.8) K/uL RBC 3.66 L (4.2-5.4) M/uL Hgb 10.2 L (12.0-16.0) g/dL Hct 32.0 L (37-47) % MCV 87.4 (80-100) fL MCH 27.9 (25-34) pg MCHC 31.9 L (32-36) g/dL RDW Std Deviation 54.6 H (36.4-46.3) fL RDW Coeff of [place] 16.9 H (11.5-14.5) % Plt Count 210 (130-400) K/uL MPV 10.5 H (7.4-10.4) fL Immature Gran % (Auto) 0.3 % Neut % (Auto) 62.8 % Lymph % (Auto) 21.2 % [place] % (Auto) 13.7 % Eos % (Auto) 1.5 % Baso % (Auto) 0.5 % Immature Gran # (Auto) 0.02 (0.00-0.02) K/uL Neut # (Auto) 4.13 (1.4-6.5) K/uL Lymph # (Auto) 1.39 (1.2-3.4) K/uL [place] # (Auto) 0.90 H (0.11-0.59) K/uL Eos # (Auto) 0.10 (0-0.5) K/uL Baso # (Auto) 0.03 (0-0.2) K/uL PT 24.7 H (9.0-12.0) Seconds POC INR (0.9-1.1) INR 2.5 H (0.9-1.1) APTT 38.0 H (21.0-31.0) Seconds PTT Ratio 1.4 Sodium 135 L (136-145) mmol/L Potassium 4.4 (3.5-5.1) mmol/L Chloride 104 (98-107) mmol/L Carbon Dioxide 24 (21-32) mmol/L Anion Gap 7.0 (3-11) BUN 21 H (7-18) mg/dl Creatinine 1.75 H (0.6-1.2) mg/dl Est Cr Clr Drug Dosing 17.2 ml/min Est GFR ( Amer) 29.6 Est GFR (Non-Af Amer) 25.6 BUN/Creatinine Ratio 11.8 (10-20) Glucose 90 (70-99) mg/dl POC Glucose (70-99) mg/dl Calcium 8.3 L (8.5-10.1) mg/dl Magnesium 2.3 (1.8-2.4) mg/dl Total Bilirubin 0.5 (0.2-1) mg/dl AST 44 H (15-37) U/L ALT 48 (12-78) U/L Alkaline Phosphatase 94 (45-117) U/L Troponin I < 0.015 (0-0.045) ng/ml Total Protein 6.4 (6.4-8.2) gm/dl Albumin 3.1 L (3.4-5.0) gm/dl Globulin 3.2 (2.5-4.0) gm/dl Albumin/Globulin Ratio 1.0 (0.9-2) Urine Color Urine Appearance (Clear) Urine pH (4.5-7.5) Ur Specific [place] (1.000-1.030) Urine Protein (Negative) Urine Glucose (UA) (Negative) Urine Ketones (Negative) Urine Blood (Negative) Urine Nitrite (Negative) Urine Bilirubin (Negative) Urine Urobilinogen (Negative) Ur Leukocyte Esterase (Negative) Urine WBC (Auto) (0-5) /hpf Urine RBC (Auto) (0-4) /hpf U Hyaline Cast (Auto) (0-5) /lpf U Epithel Cells (Auto) (0-5) /lpf Urine Bacteria (Auto) (Negative) Blood Type Antibody Screen 05/31/19 Range/Units 21:40 WBC (4.8-10.8) K/uL RBC (4.2-5.4) M/uL Hgb (12.0-16.0) g/dL Hct (37-47) % MCV (80-100) fL MCH (25-34) pg MCHC (32-36) g/dL RDW Std Deviation (36.4-46.3) fL RDW Coeff of [place] (11.5-14.5) % Plt Count (130-400) K/uL MPV (7.4-10.4) fL Immature Gran % (Auto) % Neut % (Auto) % Lymph % (Auto) % [place] % (Auto) % Eos % (Auto) % Baso % (Auto) % Immature Gran # (Auto) (0.00-0.02) K/uL Neut # (Auto) (1.4-6.5) K/uL Lymph # (Auto) (1.2-3.4) K/uL [place] # (Auto) (0.11-0.59) K/uL Eos # (Auto) (0-0.5) K/uL Baso # (Auto) (0-0.2) K/uL PT (9.0-12.0) Seconds POC INR (0.9-1.1) INR (0.9-1.1) APTT (21.0-31.0) Seconds PTT Ratio Sodium (136-145) mmol/L Potassium (3.5-5.1) mmol/L Chloride (98-107) mmol/L Carbon Dioxide (21-32) mmol/L Anion Gap (3-11) BUN (7-18) mg/dl Creatinine (0.6-1.2) mg/dl Est Cr Clr Drug Dosing ml/min Est GFR ( Amer) Est GFR (Non-Af Amer) BUN/Creatinine Ratio (10-20) Glucose (70-99) mg/dl POC Glucose (70-99) mg/dl Calcium (8.5-10.1) mg/dl Magnesium (1.8-2.4) mg/dl Total Bilirubin (0.2-1) mg/dl AST (15-37) U/L ALT (12-78) U/L Alkaline Phosphatase (45-117) U/L Troponin I (0-0.045) ng/ml Total Protein (6.4-8.2) gm/dl Albumin (3.4-5.0) gm/dl Globulin (2.5-4.0) gm/dl Albumin/Globulin Ratio (0.9-2) Urine Color Yellow Urine Appearance Clear (Clear) Urine pH 7.5 (4.5-7.5) Ur Specific [place] 1.023 (1.000-1.030) Urine Protein Negative (Negative) Urine Glucose (UA) Negative (Negative) Urine Ketones Negative (Negative) Urine Blood Negative (Negative) Urine Nitrite Negative (Negative) Urine Bilirubin Negative (Negative) Urine Urobilinogen Negative (Negative) Ur Leukocyte Esterase 2+ H (Negative) Urine WBC (Auto) 10-30 H (0-5) /hpf Urine RBC (Auto) 0-4 (0-4) /hpf U Hyaline Cast (Auto) 1-5 (0-5) /lpf U Epithel Cells (Auto) 10-20 H (0-5) /lpf Urine Bacteria (Auto) Negative (Negative) Blood Type Antibody Screen Imaging Data Radiologist's Impression: XR chest 1V portable HISTORY: Atypical chest pain. COMPARISON: Chest 03/11/2018. FINDINGS: The heart remains mildly enlarged. Is left-sided dual-chamber pacemaker. The lungs are clear. No pleural effusions. No pneumothorax. Slightly rotated study. IMPRESSION: Stable mild cardiomegaly. No acute process within the chest. ACT 112: Negative or not required by law. Electronically signed by: Benson Self M.D. 05/31/2019 9:44 PM HEAD & NECK CTA HISTORY: Difficulty speaking Stroke evaluation TECHNIQUE: Multiaxial CT images of the head were performed following the intravenous administration of contrast to evaluate the major cerebral vessels. Multiaxial CT images of the neck were also performed following the intravenous administration of contrast to evaluate the major cervical vessels. Maximum intensity projection images were also obtained. A dose lowering technique was utilized adhering to the principles of ALARA. COMPARISON: Head CT 01/14/2019. Carotid Doppler 12/27/2017. Head and neck MRA 03/30/2017. FINDINGS: There is no mass, hematoma, midline shift, or acute infarct. Visualized intracranial internal carotid arteries, distal vertebral arteries, and basilar artery are widely patent. There is no significant stenosis, occlusion, or aneurysm seen within the bilateral ACAs, MCAs, or shed boss. The major dural venous sinuses appear patent. Incidental note is made of a persistent right posterior circulation. This is considered to be a normal variant. The aortic arch and proximal great vessels are widely patent. There is no significant stenosis, occlusion, or dissection identified within the bilateral common carotid, right internal carotid, or vertebral arteries. Approximately 40% focal stenosis at the takeoff of the left internal carotid artery. Remaining segments of the left internal carotid artery are widely patent. Moderate calcified plaque at the aortic arch. There is a left-sided dual-chamber pacemaker. Mild calcified plaque within the bilateral carotid bifurcations. IMPRESSION: 1. No significant stenosis, occlusion, or aneurysm within the [place]. 2. Approximately 40% focal stenosis at the takeoff of the left internal carotid artery due to the atherosclerotic plaque. 3. Otherwise, no significant stenosis, occlusion, or dissection identified within the right internal carotid, bilateral common carotid or bilateral vertebral arteries. ACT 112: Negative or not required by law. Electronically signed by: Benson Self M.D. 05/31/2019 9:32 PM HEAD & NECK CTA HISTORY: Difficulty speaking Stroke evaluation TECHNIQUE: Multiaxial CT images of the head were performed following the intravenous administration of contrast to evaluate the major cerebral vessels. Multiaxial CT images of the neck were also performed following the intravenous administration of contrast to evaluate the major cervical vessels. Maximum intensity projection images were also obtained. A dose lowering technique was utilized adhering to the principles of ALARA. COMPARISON: Head CT 01/14/2019. Carotid Doppler 12/27/2017. Head and neck MRA 03/30/2017. FINDINGS: There is no mass, hematoma, midline shift, or acute infarct. Visualized intracranial internal carotid arteries, distal vertebral arteries, and basilar artery are widely patent. There is no significant stenosis, occlusion, or aneurysm seen within the bilateral ACAs, MCAs, or shed boss. The major dural venous sinuses appear patent. Incidental note is made of a persistent right posterior circulation. This is considered to be a normal variant. The aortic arch and proximal great vessels are widely patent. There is no significant stenosis, occlusion, or dissection identified within the bilateral common carotid, right internal carotid, or vertebral arteries. Approximately 40% focal stenosis at the takeoff of the left internal carotid artery. Remaining segments of the left internal carotid artery are widely patent. Moderate calcified plaque at the aortic arch. There is a left-sided dual-chamber pacemak er. Mild calcified plaque within the bilateral carotid bifurcations. IMPRESSION: 1. No significant stenosis, occlusion, or aneurysm within the [place]. 2. Approximately 40% focal stenosis at the takeoff of the left internal carotid artery due to the atherosclerotic plaque. 3. Otherwise, no significant stenosis, occlusion, or dissection identified within the right internal carotid, bilateral common carotid or bilateral vertebral arteries. ACT 112: Negative or not required by law. Electronically signed by: Benson Self M.D. 05/31/2019 9:[address] NONCONTRAST CT DOSE: HISTORY: Difficulty speaking. Stroke evaluation TECHNIQUE: Multiaxial CT images of the head were performed without the use of intravenous contrast. Automated exposure control was utilized for this study. A dose lowering technique was utilized adhering to the principles of ALARA. Comparison: Head CT 01/14/2019. Findings: The paranasal sinuses and mastoid air cells are clear. The calvarium a nd skull base are intact. There is no mass, hematoma, midline shift, acute infarct. White matter hypodensity is nonspecific but suggestive of microvascular ischemic change. The ventricles and sulci demonstrate mild age-related involutional changes. Motion artifact. Impression: Mild motion artifact. No definite acute intracranial abnormality. ACT 112: Negative or not required by law. Electronically signed by: Benson Self M.D. 05/31/2019 9:22 PM ECG Data Attestation: I personally reviewed and interpreted this ECG as follows: Indication: + chest pain Rate (beats per minute): 61 Rhythm: + other (Atrial paced rhythm) ECG [place]: + Left axis deviation ECG ST segments: + T-wave inversions (Biphasic T waves in leads V3 to V6); no ST elevation ECG Findings: no PVCs Blood Pressure Blood Pressure Findings: Elevated blood pressure Blood Pressure Disposition: Referred to patients primary care provider MDM Narrative I did evaluate the patient as noted above. I did obtain history from the patient as well as the nurses and the patient's daughter at home. The patient has presented with a unresponsive episode. The paramedics noticed that she had possibly right facial droop and right arm weakness. On our evaluation here she had no neurologic symptoms. She does have some scattered wheezing on lung examination but denies any flulike symptoms or cough or history of COPD. She did develop some chest pain which she was unable to describe. Her chest pain did resolve in the emergency department. I did call a stroke alert because of her reported neurologic symptoms but her NIH stroke scale is 0. I did order a CT of the head and CT angiogram of the head and neck. I did review the images myself as well as the radiology report as described above.no evidence of stroke is noted. I did talk to the [place] stroke neurologist Dr. Constantino who recommended hospitalization and further work-up. IV access was established. 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 Cardiac monitoring: Indication: Unresponsive episode Rate and rhythm: Normal sinus rhythm with a rate of 63. No dysrhythmia I did order and personally review the patient's 12-lead EKG as described above. She has no evidence of acute ischemia. I did order and personally reviewed the images of the patient's chest x-ray as described above. She has mild cardiomegaly without acute infiltrate. I did order a urine analysis. She does not have a UTI. I did order and review the patient's blood work as noted in the electronic medical record. She has anemia with a hemoglobin of 10. Her creatinine is elevated at 1.75. I did discuss the test results with the patient. I did update her daughter. I did recommend hospitalization. She is currently without complaints. I did talk to the hospitalist and case assistant. Impression & Plan Episode of unresponsiveness, Acute chest pain, RUE weakness, Elevated serum creatinine, Anemia Discharge Plan Visit Data Chief Complaint: Stroke/CVA Symptoms Stated Complaint: SYNCOPE, CHEST PAIN ED Provider: Toro Garza Discharge Problem: Episode of unresponsiveness, Acute chest pain, RUE weakness, Elevated serum creatinine, Anemia Patient Disposition: Being Evaluated by Hospitalist Condition: Good Discharge Instructions Interventions: ED Discharge Assessment Last Done: 06/01/19 00:13 Forms Stand Alone Forms: My [facility] [place] [employer] Prescriptions Prescriptions: No Action amiodarone 200 mg Tablet 200 mg PO DAILY RF: 0 hydroxyzine HCl 25 mg Tablet 25 mg PO Q6 PRN (Reason: Itching) RF: 0 ropinirole 1 mg Tablet 1 mg PO HS PRN (Reason: Restless Leg(S)) RF: 0 acetaminophen [Tylenol] 325 mg Tablet 650 mg PO Q6H PRN (Reason: Pain) RF: 0 warfarin 1 mg Tablet 2 mg PO 2XWK RF: 0 cholecalciferol (vitamin D3) [Vitamin D3] 50 mcg (2,000 unit) Tablet 50 mcg PO DAILY RF: 0 escitalopram oxalate 5 mg tablet 5 mg PO DAILY RF: 0 metoprolol succinate 25 mg tablet extended release 24 hr 25 mg PO DAILY RF: 0 Vitron-C 65 mg iron- 125 mg Tablet,Delayed Release (Dr/Ec) 1 tab PO DAILY RF: 0 ropinirole 0.5 mg Tablet 0.5 mg PO TID PRN (Reason: Restless Leg(S)) RF: 0 loperamide 2 mg Tablet 2 mg PO DIRECTED MDD 16 MG/24 HOURS PRN (Reason: Diarrhea) RF: 0 famotidine 20 mg Tablet 20 mg PO BID PRN (Reason: GASTRITIS) RF: 0 levothyroxine 50 mcg Tablet 50 mcg PO DAILYBB RF: 0 nitroglycerin 0.4 mg Tablet, Sublingual 0.4 mg Sublingual DIRECTED PRN (Reason: Chest Pain) RF: 0 digoxin 125 mcg Tablet 0.125 mg PO 3XWK RF: 0 warfarin 1 mg Tablet 1 mg PO 5XWK RF: 0 ondansetron 4 mg Tablet,Disintegrating 4 mg translingual QID PRN (Reason: Nausea) RF: 0 rosuvastatin 10 mg Tablet 10 mg PO HS RF: 0 levocetirizine 5 mg Tablet 5 mg PO HS RF: 0 acidophilus-pectin, citrus [Acidophilus Probiotic] 100 million cell-10 mg Capsule 1 cap PO DAILY RF: 0 Itch Relief 2-0.1 % cream 1 applic Topical QID PRN (Reason: Itching) RF: 0 betamethasone dipropionate 0.05 % ointment 1 applic Topical BID PRN (Reason: Itching) RF: 0 Referrals Referrals: Roly Vogel MD [Primary Care Provider] - Discharge Problem: Anemia Qualifiers: Anemia type: unspecified type Qualified Code(s): D64.9 - Anemia, unspecified
--- NOTE | 2019-05-31 21:24 | CT Scan Report ---
HEAD CT NONCONTRAST CT DOSE: HISTORY: Difficulty speaking. Stroke evaluation TECHNIQUE: Multiaxial CT images of the head were performed without the use of intravenous contrast. A utomated exposure control was utilized for this study. A dose lowering technique was utilized adheri ng to the principles of ALARA. Comparison: Head CT 01/14/2019. Findings: The paranasal sinuses and mastoid air cells are clear. The calvarium and skull base are int act. There is no mass, hematoma, midline shift, acute infarct. White matter hypodensity is nonspecifi c but suggestive of microvascular ischemic change. The ventricles and sulci demonstrate mild age-rela maynor involutional changes. Motion artifact. Impression: Mild motion artifact. No definite acute intracranial abnormality. ACT 112: Negative or not required by law. Electronically signed by: Benson Self M.D. 05/31/2019 9:22 PM
--- NOTE | 2019-05-31 21:33 | CT Scan Report ---
HEAD & NECK CTA HISTORY: Difficulty speaking Stroke evaluation TECHNIQUE: Multiaxial CT images of the head were performed following the intravenous administration o f contrast to evaluate the major cerebral vessels. Multiaxial CT images of the neck were also perform ed following the intravenous administration of contrast to evaluate the major cervical vessels. Maxim um intensity projection images were also obtained. A dose lowering technique was utilized adhering to the principles of ALARA. COMPARISON: Head CT 01/14/2019. Carotid Doppler 12/27/2017. Head and neck MRA 03/30/2017. FINDINGS: There is no mass, hematoma, midline shift, or acute infarct. Visualized intracranial internal carotid arteries, distal vertebral arteries, and basilar artery are widely patent. There is no significant s tenosis, occlusion, or aneurysm seen within the bilateral ACAs, MCAs, or shipping agent. The major dural venous sinuses appear patent. Incidental note is made of a persistent right posterior circulation. Th is is considered to be a normal variant. The aortic arch and proximal great vessels are widely patent. There is no significant stenosis, occ lusion, or dissection identified within the bilateral common carotid, right internal carotid, or vert ebral arteries. Approximately 40% focal stenosis at the takeoff of the left internal carotid artery. Remaining segments of the left internal carotid artery are widely patent. Moderate calcified plaque a t the aortic arch. There is a left-sided dual-chamber pacemaker. Mild calcified plaque within the darian ateral carotid bifurcations. IMPRESSION: 1. No significant stenosis, occlusion, or aneurysm within the [place]. 2. Approximately 40% focal stenosis at the takeoff of the left internal carotid artery due to the ath erosclerotic plaque. 3. Otherwise, no significant stenosis, occlusion, or dissection identified within the right internal carotid, bilateral common carotid or bilateral vertebral arteries. ACT 112: Negative or not required by law. Electronically signed by: Benson Self M.D. 05/31/2019 9:32 PM
--- NOTE | 2019-05-31 21:33 | CT Scan Report ---
HEAD & NECK CTA HISTORY: Difficulty speaking Stroke evaluation TECHNIQUE: Multiaxial CT images of the head were performed following the intravenous administration o f contrast to evaluate the major cerebral vessels. Multiaxial CT images of the neck were also perform ed following the intravenous administration of contrast to evaluate the major cervical vessels. Maxim um intensity projection images were also obtained. A dose lowering technique was utilized adhering to the principles of ALARA. COMPARISON: Head CT 01/14/2019. Carotid Doppler 12/27/2017. Head and neck MRA 03/30/2017. FINDINGS: There is no mass, hematoma, midline shift, or acute infarct. Visualized intracranial internal carotid arteries, distal vertebral arteries, and basilar artery are widely patent. There is no significant s tenosis, occlusion, or aneurysm seen within the bilateral ACAs, MCAs, or canary raiser. The major dural venous sinuses appear patent. Incidental note is made of a persistent right posterior circulation. Th is is considered to be a normal variant. The aortic arch and proximal great vessels are widely patent. There is no significant stenosis, occ lusion, or dissection identified within the bilateral common carotid, right internal carotid, or vert ebral arteries. Approximately 40% focal stenosis at the takeoff of the left internal carotid artery. Remaining segments of the left internal carotid artery are widely patent. Moderate calcified plaque a t the aortic arch. There is a left-sided dual-chamber pacemaker. Mild calcified plaque within the darian ateral carotid bifurcations. IMPRESSION: 1. No significant stenosis, occlusion, or aneurysm within the [place]. 2. Approximately 40% focal stenosis at the takeoff of the left internal carotid artery due to the ath erosclerotic plaque. 3. Otherwise, no significant stenosis, occlusion, or dissection identified within the right internal carotid, bilateral common carotid or bilateral vertebral arteries. ACT 112: Negative or not required by law. Electronically signed by: Benson Self M.D. 05/31/2019 9:32 PM
--- NOTE | 2019-05-31 21:46 | XRay Report ---
XR chest 1V portable HISTORY: Atypical chest pain. COMPARISON: Chest 03/11/2018. FINDINGS: The heart remains mildly enlarged. Is left-sided dual-chamber pacemaker. The lungs are jenelle r. No pleural effusions. No pneumothorax. Slightly rotated study. IMPRESSION: Stable mild cardiomegaly. No acute process within the chest. ACT 112: Negative or not required by law. Electronically signed by: Benson Self M.D. 05/31/2019 9:44 PM
[2019-05-31 21:48] LABS: Basophils # (auto) 0.03 K/uL (0-0.2); Basophils % (auto) 0.5 %; Eosinophils % (auto) 1.5 %; Hemoglobin 10.2 g/dL (12.0-16.0); Immature Granulocytes # (auto) 0.02 K/uL (0.00-0.02); Immature Granulocytes % (auto) 0.3 %; Lymphocytes # (auto) 1.39 K/uL (1.2-3.4); Lymphocytes % (auto) 21.2 %; Mean Corpuscular Hemoglobin 27.9 pg (25-34); Mean Corpuscular Hgb Conc 31.9 g/dL (32-36); Mean Corpuscular Volume 87.4 fL (80-100); Mean Platelet Volume 10.5 fL (7.4-10.4); Monocytes % (auto) 13.7 %; Neutrophils # (auto) 4.13 K/uL (1.4-6.5); Neutrophils % (auto) 62.8 %; Platelet Count 210 K/uL (130-400); RDW Coefficient of Variation 16.9 % (11.5-14.5); RDW Standard Deviation 54.6 fL (36.4-46.3); Red Blood Count 3.66 M/uL (4.2-5.4); White Blood Count 6.57 K/uL (4.8-10.8)
[2019-05-31 22:01] LABS: INR 2.5 (0.9-1.1); Partial Thromboplastin Ratio 1.4; Prothrombin Time 24.7 Seconds (9.0-12.0)
[2019-05-31 22:05] LABS: Alanine Aminotransferase 48 U/L (12-78); Albumin Level 3.1 gm/dl (3.4-5.0); Aspartate Aminotransferase 44 U/L (15-37); BUN Creatinine Ratio 11.8 (10-20); Blood Urea Nitrogen 21 mg/dl (7-18); Calcium 8.3 mg/dl (8.5-10.1); Carbon Dioxide 24 mmol/L (21-32); Chloride 104 mmol/L (98-107); Creatinine Clr Calc Pharmacy 17.2 ml/min; Est GFR (African American) 29.6; Est GFR (Non-African American) 25.6; Glucose 90 mg/dl (70-99); Magnesium 2.3 mg/dl (1.8-2.4); Potassium 4.4 mmol/L (3.5-5.1); Sodium 135 mmol/L (136-145)
[2019-05-31 22:10] LABS: Alkaline Phosphatase 94 U/L (45-117); Bilirubin,Total 0.5 mg/dl (0.2-1); Globulin 3.2 gm/dl (2.5-4.0); Total Protein 6.4 gm/dl (6.4-8.2); Troponin I < 0.015 ng/ml (0-0.045)
[2019-05-31 22:12] LABS: Appearance Urine Clear (Clear); Bacteria Urine Automated Negative (Negative); Bilirubin Urine Negative (Negative); Blood Urine Negative (Negative); Color Urine Yellow; Glucose Urine UA Negative (Negative); Ketones Urine Negative (Negative); Leukocyte Esterase Urine 2+ (Negative); Nitrite Urine Negative (Negative); Protein Urine Negative (Negative); RBC Urine Automated 0-4 /hpf (0-4); Specific Gravity Urine 1.023 (1.000-1.030); Urobilinogen Urine Negative (Negative); pH Urine 7.5 (4.5-7.5)
[2019-06-01] MEDS ORDERED: ROPINIROLE HCL 1 MG TABLET PO STA (00:05)
[2019-06-01] MEDS ORDERED: ACETAMINOPHEN 325 MG TAB PO PRN (00:31)
[2019-06-01] MEDS ORDERED: ROPINIROLE HCL 1 MG TABLET PO PRN (00:31)
[2019-06-01] MEDS ORDERED: DiphenhydrAMINE 2%/ZINC 0.1% CREAM 28GM TUBE EXT PRN (00:31)
[2019-06-01] MEDS ORDERED: FAMOTIDINE 20 MG TAB PO PRN (00:31)
[2019-06-01] MEDS ORDERED: ONDANSETRON INJ 2 MG/ML 2 ML VIAL IV PRN (00:31)
[2019-06-01] MEDS ORDERED: NITROGLYCERIN SL 0.4 MG/TAB TAB SL PRN (00:31)
[2019-06-01] MEDS ORDERED: POLYETHYLENE (MIRALAX) 17 GM PACK PO PRN (00:31)
[2019-06-01] MEDS ORDERED: PHARMACIST DISCHARGE MED REC CONSULT PRN (00:31)
[2019-06-01] MEDS ORDERED: SODIUM CHLORIDE 0.9% 1000ML 1,000 ML IV SCH (00:31)
[2019-06-01] MEDS ORDERED: LOPERAMIDE HCL 2 MG CAP PO PRN (00:47)
[2019-06-01] MEDS ORDERED: ONDANSETRON 4 MG OD TAB PO PRN (00:49)
[2019-06-01] MEDS ORDERED: BETAMETHASONE DIP AUG (DIPROLENE) 0.05% CR 15 GM TUBE EXT PRN (00:50)
--- NOTE | 2019-06-01 02:21 | History and Physical Report ---
DATE OF ADMISSION: 05/31/2019 CHIEF COMPLAINT: Stroke-like symptoms. HISTORY OF PRESENT ILLNESS: This is an 89-year-old female with past medical history significant for hyperlipidemia, hypothyroidism, paroxysmal atrial fibrillation, history of SVT, tachy-enid syndrome, status post pacemaker, chronic diastolic CHF, hypertension, chronic kidney disease stage III, vitamin D deficiency, restless legs syndrome, senile osteoporosis, Dupuytren contracture of the right hand, sensorineural hearing loss bilateral, generalized anxiety, history of frequent falls, who lives at home with her daughter, walks with help of cane and also holding furniture, presents with syncope and stroke-like symptoms. The patient was putting her kitchenware in the cupboard when she suddenly fell down and passed out and daughter was in the house. She called her nephew who lives next door. They tried to lift her hands, but the hands were dropping down. As per the ER physician, when the EMS arrived, she was having some right facial droop and right hand weakness. The stroke alert was called, but as the patient came to the ER, she was fine and had complaint of some chest pain. A CT of the head and CTA head and neck were done which are unremarkable. Initially when she fell down she was staring, but she was not speaking much. Right now speech is clear. 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 She also is status post EEG recently and it was unremarkable. The patient denies any biting of tongue or shaking of the body or bowel or bladder incontinence during the episode. When she came in today, she had some chest pain, but that has resolved now. She has some headache, but that is getting better. Denies any blurred vision. Somewhat hard to hear. Denies any cough. No runny nose, no sore throat, no difficulty swallowing. She says has chronic shortness of breath with exertion. Denies any fever, chills. No nausea, no abdominal pain. No diarrhea or constipation, no blood in the stools. Normal bladder movements. Appetite is okay. No swelling in the legs, no rash. Currently, resting comfortable and hemodynamically stable. ALLERGIES: CIPROFLOXACIN, SULFA ANTIBIOTICS, ADHESIVES, ESTROGEN, TETANUS TOXOID. PAST MEDICAL HISTORY: As mentioned above. PAST SURGICAL HISTORY: Right knee arthroplasty; left carpal tunnel surgery; colonoscopy; EGD; laparoscopic colectomy, partial with anastomosis; bilateral cataract surgery; tonsillectomy; adenoidectomy; total abdominal hysterectomy with removal of tubes; pacemaker insertion. MEDICATIONS: The patient is on levocetirizine 5 mg daily, vitamin D 4000 units p.o. daily, Vitron-C 1 tablet daily, Imodium 2 mg p.r.n., Requip 1 mg p.o. at bedtime, levothyroxine 50 mcg p.o. daily, Lexapro 5 mg p.o. daily, hydroxyzine 25 mg p.o. q. 6 hours p.r.n., Crestor 10 mg p.o. daily at bedtime, amiodarone 200 mg p.o. daily, Coumadin 2 mg on Wednesdays and Saturdays and 1 mg all other days, Toprol-XL 25 mg p.o. daily, Requip 0.5 mg p.o. t.i.d. p.r.n., nitroglycerin 0.4 mg sublingual p.r.n., digoxin 125 mcg p.o. daily, lactobacillus acidophilus 1 tablet daily, famotidine 20 mg p.o. b.i.d. as needed, Zofran 4 mg sublingual p.r.n., Tylenol 650 mg p.o. q. 6 hours p.r.n. FAMILY HISTORY: No family history. SOCIAL HISTORY: , lives with her daughter. No smoking. Alcohol rarely. No drug use. REVIEW OF SYSTEMS: As per HPI. Rest of the review of systems negative. PHYSICAL EXAMINATION: GENERAL: The patient is old and frail, not in acute distress. VITAL SIGNS: Temperature 36.5, pulse 65, respiratory rate 21, blood pressure 178/85, oxygen 97% on room air. HEENT: No pallor, no icterus. Extraocular muscles intact. NECK: No JVD, no neck masses, no carotid bruits. CARDIOVASCULAR: S1, S2 heard, regular rate and rhythm, no murmur, no gallop. RESPIRATORY SYSTEM: Normal AP diameter. No accessory muscle use. No wheezing, no crackles. ABDOMEN: Soft, bowel sounds present, nontender. No distention. CENTRAL NERVOUS SYSTEM: Alert and oriented. Power 4/5 in all extremities. No pronator drift. Able to hold her lower extremities for a few seconds. Sensation is intact, position sense intact. EXTREMITIES: No edema, no erythema. LABORATORY DATA: WBC 6.5, hemoglobin 10.2, hematocrit 32, platelets 210. PT 24.7, INR 2.5. Sodium 135, potassium 4.4, chloride 104, bicarbonate 24, BUN 21, creatinine 1.75, glucose 90, calcium 8.3, magnesium 2.3, total bilirubin 0.5, AST 44, ALT 48, alkaline phosphatase 94. Troponin I less than 0.015. Urinalysis, +2 leukocyte esterase, but urine bacteria negative. IMAGING DATA: CT of the head, no definite acute intracranial abnormality. Head CTA, no significant stenosis, occlusion, or aneurysm within the [place]. Approximately 40% focal stenosis at the takeoff of the left internal carotid artery due to atherosclerotic block. Chest x-ray, no acute process. EKG: Atrial paced rhythm at a rate of 61, no significant change was found. ASSESSMENT AND PLAN: This is an 89-year-old female who presents with stroke-like symptoms. 1. Stroke-like symptoms. The patient passed out at home. Question of right facial droop and right hand weakness and also not able to speak, but by the time she came here, she came back to her usual self except for complaining of some chest pain. CT of the head and CTA of the head and neck are unremarkable. Could not do MRI because of the pacemaker. 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 Will observe in tele floor, will also do orthostatics. We will get an echocardiogram, speech evaluation, PT, OT evaluation. Neuro consult in the a.m. for further recommendations. 2. Acute kidney injury on chronic kidney disease stage III. Baseline creatinine around 1.4, currently creatinine of 1.7, getting gentle fluids. Follow the labs in the a.m. 3. Probable urinary tract infection with positive leukocyte esterase. Follow the cultures. Will empirically start with Rocephin. 4. History of paroxysmal atrial fibrillation, tachy-enid syndrome, supraventricular tachycardia status post pacemaker, on Coumadin. INR therapeutic. On digoxin, amiodarone, and Toprol-XL. 5. History of chronic diastolic congestive heart failure, not on any diuretics, on Toprol-XL. Getting fluids. Monitor for volume overload. 6. Hypertension, on Toprol-XL, will monitor.. 7. Restless legs syndrome, on Requip. 8. Depression and anxiety, on Lexapro. 9. Hypothyroidism, on Synthroid. 10. Deep venous thrombosis prophylaxis, on Coumadin. INR therapeutic. 11. Disposition: Observe in tele floor. Expect to discharge home and follow with family doctor. Level 1 full code. Social service to help with discharge planning. MTDD
[2019-06-01] MEDS: LEVOTHYROXINE SODIUM 50 MCG TABLET PO SCH (05:37)
[2019-06-01] MEDS: cefTRIAXone SODIUM 1,000 MG in DEXTROSE 5% 50 ML IV SCH (05:37)
[2019-06-01] MEDS: ROPINIROLE HCL 0.25 MG TABLET PO PRN ×3 (05:44→17:25)
[2019-06-01 05:59] LABS: Basophils # (auto) 0.02 K/uL (0-0.2); Basophils % (auto) 0.3 %; Eosinophils # (auto) 0.11 K/uL (0-0.5); Eosinophils % (auto) 1.6 %; Hematocrit (blood only) 30.5 % (37-47); Hemoglobin 9.6 g/dL (12.0-16.0); Immature Granulocytes # (auto) 0.02 K/uL (0.00-0.02); Immature Granulocytes % (auto) 0.3 %; Lymphocytes # (auto) 1.56 K/uL (1.2-3.4); Lymphocytes % (auto) 22.3 %; Mean Corpuscular Hemoglobin 27.5 pg (25-34); Mean Corpuscular Hgb Conc 31.5 g/dL (32-36); Mean Corpuscular Volume 87.4 fL (80-100); Mean Platelet Volume 10.2 fL (7.4-10.4); Monocytes # (auto) 0.91 K/uL (0.11-0.59); Neutrophils # (auto) 4.37 K/uL (1.4-6.5); Neutrophils % (auto) 62.5 %; Platelet Count 211 K/uL (130-400); RDW Standard Deviation 54.7 fL (36.4-46.3); Red Blood Count 3.49 M/uL (4.2-5.4); White Blood Count 6.99 K/uL (4.8-10.8)
[2019-06-01 06:07] LABS: Estimated Average Glucose 137 mg/dl; Hemoglobin A1C 6.4 % (4.5-5.6)
[2019-06-01 06:10] LABS: INR 2.3 (0.9-1.1)
[2019-06-01 06:28] LABS: BUN Creatinine Ratio 12.2 (10-20); Calcium 8.1 mg/dl (8.5-10.1); Creatinine Clr Calc Pharmacy 20.3 ml/min; Est GFR (African American) 37.8; Est GFR (Non-African American) 32.6
[2019-06-01] MEDS: METOPROLOL SUCC 25MG EXT REL TAB PO SCH (07:57)
[2019-06-01] MEDS: ASPIRIN 81 MG ECTAB PO SCH (07:58)
[2019-06-01] MEDS: AMIODARONE 200 MG TAB PO SCH (07:58)
[2019-06-01] MEDS: ESCITALOPRAM OXALATE 10 MG TAB PO SCH (07:59)
[2019-06-01] MEDS: LACTOBACILLUS ACIDOPHILUS (FLORANEX) TAB PO SCH (08:00)
[2019-06-01] MEDS ORDERED: NON-FORMULARY MEDICATION (Iron,Carbonyl-Vitamin C [Vitron-C] 1 TAB) PO SCH (09:00)
[2019-06-01] MEDS ORDERED: CHOLECALCIFEROL 50 MCG PO SCH (09:00)
--- NOTE | 2019-06-01 11:40 | Communication Note ---
Date of Service: June 01, 2019 The patient was seen and examined in telemetry unit She is an 89-year-old female significant past medical history of paroxysmal atrial fibrillation status post pacemaker, chronic diastolic CHF, hypertension, chronic kidney disease stage III, generalized anxiety, ambulatory dysfunction with frequent falls at home and other medical conditions as mentioned in history and physical was admitted with strokelike symptoms involving right sided weakness and right facial droop. Stroke alert was called and the patient was interviewed by the telemetry neurologist. Symptoms resolved during the telemetry stroke monitoring and apparent investigation including CT and MRI came out to be unremarkable. She remains hemodynamically stable this morning Denies any significant symptoms except weakness and ambulatory dysfunction She likely has UTI and has been on IV antibiotic for now Discussed with the daughter in detail Possible discharge tomorrow home with home physical therapy as before DR Albertina Hernandez
--- NOTE | 2019-06-01 13:00 | Electrocardiogram Report ---
Test Reason : Blood Pressure : / mmHG Vent. Rate : 061 BPM Atrial Rate : 063 BPM P-R Int : 000 ms QRS Dur : 090 ms QT Int : 428 ms P-R-T Axes : 098 -44 049 degrees QTc Int : 430 ms Atrial-paced rhythm Left axis deviation Abnormal ECG When compared with ECG of 11-MAR-2018 21:42, No significant change was found Confirmed by Jaison Monet ([id number]) on 06/01/2019 1:00:05 PM Referred By: REFERRED SELF Confirmed By:Jaison Monet
--- NOTE | 2019-06-01 14:23 | Neurology Consultation ---
Date of Consultation June 01, 2019 Assessment & Plan (1) Episode of unresponsiveness: An 89 year old woman with history of syncope or unresponsive episodes admitted for possible syncopal episode last night. Was referred to me as outpatient for similar episodes. Episode was witnessed in the office and consistent with non epileptic event. Previous EEG was Normal. Patient today back to baseline and noting episode of LOC yesterday evening after standing up or bending over. No facial droop noted on my examine. Differential diagnosis certainly includes vasovagal syncope. CTA head and neck shows no large vessel oclussion or high grade stenosis. TTE showed a normal EF. Currently on Coumadin for secondary stroke prevention in the setting of Afib with pacemaker. Recommend to continue current medications. Will defer to primary regarding UTI. Ok to discharge from neurology standpoint. (2) RUE weakness: History of Present Illness Reason for Consultation: Syncope Attending Physician: Kevon Hernandez MD History of Present Illness 81-year-old woman with history of nonepileptic behavioral events and paroxysmal atrial fibrillation on Coumadin admitted for syncopal episode yesterday. EMS noted some right-sided weakness and stroke evaluation was performed. The patient did not receive TPA. CTA head and neck showed no high-grade stenosis or large vessel occlusion. CT head was negative for hemorrhage or ischemic stroke. Patient does have a history of a pacemaker and is unable to get an MRI of the brain. Neurology was consulted for further evaluation. Allergies Allergy/AdvReac Type Severity Reaction Status Date / Time ciprofloxacin Allergy Intermediate RASH Verified 05/31/19 22:57 Sulfa (Sulfonamide Allergy Intermediate HIVES, RASH Verified 05/31/19 22:57 Antibiotics) adhesive Allergy Unknown ADHESIVE Verified 08/21/18 21:14 TAPE Cipro Allergy Unknown RASH Verified 10/25/17 05:26 estrogens, conjugated Allergy Unknown SEVERE Verified 05/31/19 22:58 RASH, PAINFUL FROM VAGINAL CREAM tetanus toxoid, adsorbed Allergy Unknown UNKNOWN Verified 05/31/19 22:58 Home Medications Home Medications Medication Instructions Recorded Confirmed Type acidophilus-pectin, citrus 1 cap PO DAILY 12/25/17 05/31/19 History [Acidophilus Probiotic] digoxin 0.125 mg PO 3XWK 12/25/17 05/31/19 History famotidine 20 mg PO BID PRN 12/25/17 05/31/19 History levocetirizine 5 mg PO HS 12/25/17 05/31/19 History levothyroxine 50 mcg PO DAILYBB 12/25/17 05/31/19 History loperamide 2 mg PO DIRECTED PRN MDD 16 12/25/17 05/31/19 History MG/24 HOURS nitroglycerin 0.4 mg SUBLINGUAL DIRECTED PRN 12/25/17 05/31/19 History ondansetron 4 mg TRANSLINGUAL QID PRN 12/25/17 05/31/19 History rosuvastatin 10 mg PO HS 12/25/17 05/31/19 History warfarin 1 mg PO 5XWK 12/25/17 05/31/19 History betamethasone dipropionate 1 applic TOPICAL BID PRN 01/02/18 05/31/19 History diphenhydramine-zinc acetate [Itch 1 applic TOPICAL QID PRN 01/02/18 05/31/19 History Relief] acetaminophen [Tylenol] 650 mg PO Q6H PRN 08/21/18 05/31/19 History amiodarone 200 mg PO DAILY 08/21/18 05/31/19 History hydroxyzine HCl 25 mg PO Q6 PRN 08/21/18 05/31/19 History ropinirole 1 mg PO HS PRN 08/21/18 05/31/19 History cholecalciferol (vitamin D3) 50 mcg PO DAILY 05/31/19 05/31/19 History [Vitamin D3] escitalopram oxalate 5 mg PO DAILY 05/31/19 05/31/19 History iron,carbonyl-vitamin C [Vitron-C] 1 tab PO DAILY 05/31/19 05/31/19 History metoprolol succinate 25 mg PO DAILY 05/31/19 05/31/19 History ropinirole 0.5 mg PO TID PRN 05/31/19 05/31/19 History warfarin 2 mg PO 2XWK 05/31/19 05/31/19 History Patient History Medical History Atrial fibrillation (Chronic) Chronic diastolic CHF (congestive heart failure) (Chronic) CKD (chronic kidney disease), stage III (Chronic) Diverticular disease of colon (Chronic) Dyslipidemia (Chronic) HTN (hypertension) (Chronic) HTN (hypertension) (Chronic) Hypothyroidism (Chronic) Pacemaker (Chronic) RLS (restless legs syndrome) (Chronic) Rosacea (Chronic) SVT (supraventricular tachycardia) (Chronic) Tachy-enid syndrome (Chronic) Surgical History History of carpal tunnel surgery (Chronic) History of cataract surgery (Chronic) History of colon resection (Resolved) History of hysterectomy (Chronic) History of tonsillectomy and adenoidectomy (Chronic) History of total right knee replacement (Chronic) S/P laparoscopic-assisted sigmoidectomy (Chronic) S/P ELISHA (total abdominal hysterectomy) (Chronic) Family History Other No pertinent family history Social History Preferred Language: [place]ic Communication Ability: Effective Visual Impairment: No Limitations Payroll Tax Analyst Required: No Beliefs That Will Affect Care: None marital status: / Current Living Situation: Family Other Information That Helps Us Care for You: No Feels Safe at Home: Yes Safety Concerns: Feels Safe At This Time Smoking Status: Never smoker Hx Alcohol Use: No Hx Substance Use: No Physical Exam Physical Exam: EXAM: Constitutional: appearance normally developed Face: normocephalic and atraumatic Eyes: normal lids, normal conjunctiva Neck: supple Respiratory: normal effort Cardiovascular: normal pulses Abdomen: non distended Skin: no rashes, lesions, or ulcers noted Psychiatric: normal mood and normal affect NEUROLOGIC EXAMINATION: Appearance: no acute distress Orientation: awake, alert and oriented x 3 Mental Status: alert Attention: normal Knowledge: appropriate Language: no aphasia Speech: mild stuttering at times Cranial Nerves: CN 2 - no visual defect on confrontation and pupils round, equal CN 3, 4, 6 - extra-ocular movements intact CN 5 - facial sensation intact CN 7 - no facial asymmetry CN 8 - intact hearing CN 9, 10 - palate symmetric CN 11 - good shoulder shrug CN 12 - tongue midline Gait: deferred Coordination: no ataxia with finger to nose testing Sensory: intact to light touch Muscle Tone: normal Results & Data Vital Signs (Past 12 Hours) Vital Signs Temp Pulse Pulse Resp BP Pulse Ox Pulse Ox 06/01/19 11:54 36.5 C 68 18 142/63 H 95 06/01/19 08:05 36.5 C 69 18 131/63 95 06/01/19 08:00 67 95 06/01/19 03:56 36.6 C 64 18 127/[address] Head: No acute intracranial abnormality. CTA head and Neck: 1. No significant stenosis, occlusion, or aneurysm within the [place]. 2. Approximately 40% focal stenosis at the takeoff of the left internal carotid artery due to the atherosclerotic plaque. 3. Otherwise, no significant stenosis, occlusion, or dissection identified within the right internal carotid, bilateral common carotid or bilateral vertebral arteries. TTE: EF 55-60%
[2019-06-01] MEDS ORDERED: WARFARIN SOD 1 MG TAB PO SCH (16:00)
[2019-06-01] MEDS ORDERED: ROSUVASTATIN CALCIUM 10 MG TAB PO SCH (21:00)
[2019-06-02] MEDS: cefTRIAXone SODIUM 1,000 MG in DEXTROSE 5% 50 ML IV SCH (05:28)
[2019-06-02] MEDS: LEVOTHYROXINE SODIUM 50 MCG TABLET PO SCH (05:29)
[2019-06-02 07:01] LABS: Basophils # (auto) 0.02 K/uL (0-0.2); Basophils % (auto) 0.3 %; Eosinophils # (auto) 0.19 K/uL (0-0.5); Eosinophils % (auto) 2.9 %; Hematocrit (blood only) 32.2 % (37-47); Hemoglobin 10.1 g/dL (12.0-16.0); Immature Granulocytes # (auto) 0.02 K/uL (0.00-0.02); Immature Granulocytes % (auto) 0.3 %; Lymphocytes # (auto) 1.34 K/uL (1.2-3.4); Lymphocytes % (auto) 20.5 %; Mean Corpuscular Hemoglobin 27.4 pg (25-34); Mean Corpuscular Hgb Conc 31.4 g/dL (32-36); Mean Corpuscular Volume 87.5 fL (80-100); Mean Platelet Volume 10.2 fL (7.4-10.4); Monocytes # (auto) 0.79 K/uL (0.11-0.59); Monocytes % (auto) 12.1 %; Neutrophils # (auto) 4.18 K/uL (1.4-6.5); Neutrophils % (auto) 63.9 %; Platelet Count 207 K/uL (130-400); RDW Standard Deviation 54.7 fL (36.4-46.3); Red Blood Count 3.68 M/uL (4.2-5.4); White Blood Count 6.54 K/uL (4.8-10.8)
[2019-06-02 07:09] LABS: INR 1.8 (0.9-1.1); Prothrombin Time 18.3 Seconds (9.0-12.0)
[2019-06-02 07:18] LABS: BUN Creatinine Ratio 9.9 (10-20); Calcium 8.4 mg/dl (8.5-10.1); Creatinine Clr Calc Pharmacy 22.9 ml/min; Est GFR (African American) 43.6; Est GFR (Non-African American) 37.6
[2019-06-02 07:32] VITALS: O2SAT 95
[2019-06-02] MEDS: ROPINIROLE HCL 0.25 MG TABLET PO PRN (07:45)
[2019-06-02] MEDS: METOPROLOL SUCC 25MG EXT REL TAB PO SCH (07:46)
[2019-06-02] MEDS: LACTOBACILLUS ACIDOPHILUS (FLORANEX) TAB PO SCH (07:48)
[2019-06-02] MEDS: ASPIRIN 81 MG ECTAB PO SCH (07:49)
[2019-06-02] MEDS: ESCITALOPRAM OXALATE 10 MG TAB PO SCH (07:49)
[2019-06-02] MEDS: AMIODARONE 200 MG TAB PO SCH (07:49)
[2019-06-02] MEDS ORDERED: cephALEXin 250 MG CAP PO SCH (09:00)
--- NOTE | 2019-06-02 09:57 | Hospitalist Progress Note ---
Date of Service June 02, 2019 Assessment & Plan (1) Episode of unresponsiveness: Admitted with unresponsive episode/strokelike symptoms with right-sided weakness and right facial droop Stroke alert was called and relevant investigation including strokelike symptoms did not show any evidence of stroke No more episode Appreciate neurology input and recommendation Denies any more neurological symptoms Will be discharged home this afternoon (2) Acute on chronic renal failure: Noted to have acute kidney injury with high BUN and creatinine of 21/1.75 Kidney function improved subsequently Creatinine is 1.27 as of today (3) UTI (urinary tract infection): Urine culture grew Proteus mirabilis She was on intravenous ceftriaxone Now changed to oral Keflex to continue for next 5 days (4) HTN (hypertension): Controlled (5) Hypothyroidism: Continue supplement DVT prophylaxis Has been on Coumadin INR is therapeutic Disposition Discharge home this afternoon Continue home health and home PT Admission and Anticipated Discharge Date Admission Date: May 31, 2019 Subjective The patient was seen and examined in telemetry unit She has multiple complicated medical problem and was admitted with unresponsive episode/strokelike symptoms Noted to have UTI Denies any symptoms except problem with ambulation as before and itchy red eyes Review of Systems Review of Systems: All systems reviewed and are unremarkable except as noted below Eyes: + itchy eyes; no photophobia Neurologic: No focal sensory and motor deficit Physical Exam Physical Exam: Lying in bed comfortably Constitutional: + thin; not ill appearing Eyes: Itchy red eyes ENMT: external ear and nose normal, oropharynx normal Neck: trachea midline, no thyromegaly Respiratory: normal respiratory effort; no respiratory distress Auscultation: lungs clear to auscultation bilaterally Cardiovascular: Rate/Rhythm: regular rate and regular rhythm Heart Sounds: no murmur Gastrointestinal (Abdomen): Inspection/Auscultation: normal bowel sounds Percussion/Palpation: abdomen soft Musculoskeletal: No acute arthritis in any joints Lymphatic: no cervical or axillary lymphadenopathy Results & Data Results & Data ([facility]) Vital Signs (Past 12 Hours) Vital Signs Temp Pulse Pulse Resp BP Pulse Ox 06/02/19 07:40 61 06/02/19 07:36 44 L 06/02/19 07:31 36.8 C 22 95 06/02/19 04:00 36.7 C 64 18 145/63 H 97 06/02/19 00:00 37.0 C 70 18 149/68 H 95 Laboratory Results Short CBC 06/02/19 Range/Units 06:43 WBC 6.54 (4.8-10.8) K/uL Hgb 10.1 L (12.0-16.0) g/dL Hct 32.2 L (37-47) % Plt Count 207 (130-400) K/uL BMP 06/02/19 06:43 Sodium 137 Potassium 4.0 Chloride 107 Carbon Dioxide 27 BUN 13 Creatinine 1.27 H Glucose 91 Calcium 8.4 L Medications Administered Current Inpatient Medications Acetaminophen (Tylenol) 650 mg PO Q4H PRN PRN Reason: Pain or Fever Stop: 07/01/19 00:30 Amiodarone HCl (Cordarone) 200 mg PO DAILY [facility] Stop: 07/01/19 08:59 Last Admin: 06/02/19 07:49 Dose: 200 mg Documented by: Aspirin (Ecotrin Ectab) 81 mg PO QAM [facility] Stop: 07/01/19 08:59 Last Admin: 06/02/19 07:49 Dose: 81 mg Documented by: Betamethasone Dipropion Augmented (Diprolene 0.05%) 1 appln EXT BID PRN PRN Reason: Itching Stop: 07/01/19 00:49 Cephalexin HCl (Keflex) 250 mg PO BID [facility] Stop: 06/07/19 08:59 Digoxin (Lanoxin) 0.125 mg PO MoWeFr@1600 [facility] Stop: 07/02/19 15:59 Escitalopram Oxalate (Lexapro Tab) 5 mg PO DAILY [facility] Stop: 07/01/19 08:59 Last Admin: 06/02/19 07:49 Dose: 5 mg Documented by: Famotidine (Pepcid) 20 mg PO BID PRN PRN Reason: GASTRITIS Stop: 07/01/19 00:30 Hydroxyzine HCl (Vistaril) 25 mg PO Q6 PRN PRN Reason: Itching Stop: 07/01/19 00:30 Last Admin: 06/02/19 07:49 Dose: 25 mg Documented by: Lactobacillus Acidophilus (Floranex) 1 tab PO DAILY [facility] Stop: 07/01/19 08:59 Last Admin: 06/02/19 07:48 Dose: 1 tab Documented by: Levothyroxine Sodium (Synthroid) 50 mcg PO DAILYBB [facility] Stop: 07/01/19 06:29 Last Admin: 06/02/19 05:29 Dose: 50 mcg Documented by: Loperamide HCl (Imodium) 2 mg PO PRN PRN PRN Reason: Diarrhea Stop: 07/01/19 00:46 Metoprolol Succinate (Toprol Xl) 25 mg PO DAILY [facility] Stop: 07/01/19 08:59 Last Admin: 06/02/19 07:46 Dose: 25 mg Documented by: Miscellaneous (Order Awaiting Action) 1 ea N/A QS [facility] Stop: 07/01/19 07:59 Last Admin: 06/02/19 00:15 Dose: Not Given Documented by: Miscellaneous Information (Pharmacist Discharge Med Rec Consult) 1 ea N/A UD PRN PRN Reason: Consult Stop: 07/01/19 00:30 Nitroglycerin (Nitrostat) 0.4 mg SL UD PRN PRN Reason: Chest Pain Stop: 07/01/19 00:30 Ondansetron HCl (Zofran) 4 mg IV Q6H PRN PRN Reason: Nausea Stop: 07/01/19 00:30 Ondansetron HCl (Zofran Odt) 4 mg PO QID PRN PRN Reason: Nausea Stop: 07/01/19 00:48 Polyethylene Glycol (Miralax Powder Packet) 17 gm PO DAILY PRN PRN Reason: Constipation Stop: 07/01/19 00:30 Ropinirole HCl (Requip) 1 mg PO HS PRN PRN Reason: Restless Leg(S) Stop: 07/01/19 00:30 Last Admin: 06/02/19 00:34 Dose: 1 mg Documented by: Ropinirole HCl (Requip) 0.5 mg PO TID PRN PRN Reason: Restless Leg(S) Stop: 07/01/19 00:30 Last Admin: 06/02/19 07:45 Dose: 0.5 mg Documented by: Rosuvastatin Calcium (Crestor) 10 mg PO HS [facility] Stop: 07/01/19 20:59 Last Admin: 06/01/19 20:15 Dose: 10 mg Documented by: Warfarin Sodium (Coumadin) 2 mg PO WeSa@1600 [facility] Stop: 07/03/19 15:59 Warfarin Sodium (Coumadin) 1 mg PO SuMoTuThFr@1600 [facility] Stop: 07/01/19 15:59 Last Admin: 06/01/19 15:16 Dose: 1 mg Documented by: Zinc Acetate/Diphenhydramine (Benadryl Extra Strength) 1 appln EXT QID PRN PRN Reason: Itching Stop: 07/01/19 00:30
[2019-06-02 11:17] VITALS: PULSE 63; TEMP 98.1
[2019-06-02] MEDS ORDERED: NAPHAZOLIN/PHENIRAMIN OPH SOLN 75 DROPS/5 ML BTL OP PRN (12:09)
[2019-06-02] MEDS ORDERED: STROKE PATIENT DISCHARGE STA (12:16)
--- NOTE | 2019-06-02 12:50 | Pharmacy Report ---
Pharmacist Stroke Counseling - Date of Service June 02, 2019 - Scope: Pharmacy has been consulted to provide medication discharge counseling for this patient admitted with stroke-like symptoms as per the Pharmacist Discharge Counseling for Stroke Patients Protocol. - Medications on Discharge: Home Medications Medication Instructions Recorded Confirmed acidophilus-pectin, citrus 1 cap PO DAILY 12/25/17 05/31/19 [Acidophilus Probiotic] digoxin 0.125 mg PO 3XWK 12/25/17 05/31/19 famotidine 20 mg PO BID PRN 12/25/17 05/31/19 levocetirizine 5 mg PO HS 12/25/17 05/31/19 levothyroxine 50 mcg PO DAILYBB 12/25/17 05/31/19 loperamide 2 mg PO DIRECTED PRN MDD 16 12/25/17 05/31/19 MG/24 HOURS nitroglycerin 0.4 mg SUBLINGUAL DIRECTED PRN 12/25/17 05/31/19 ondansetron 4 mg TRANSLINGUAL QID PRN 12/25/17 05/31/19 rosuvastatin 10 mg PO HS 12/25/17 05/31/19 warfarin 1 mg PO 5XWK 12/25/17 05/31/19 betamethasone dipropionate 1 applic TOPICAL BID PRN 01/02/18 05/31/19 diphenhydramine-zinc acetate [Itch 1 applic TOPICAL QID PRN 01/02/18 05/31/19 Relief] acetaminophen [Tylenol] 650 mg PO Q6H PRN 08/21/18 05/31/19 amiodarone 200 mg PO DAILY 08/21/18 05/31/19 hydroxyzine HCl 25 mg PO Q6 PRN 08/21/18 05/31/19 ropinirole 1 mg PO HS PRN 08/21/18 05/31/19 cholecalciferol (vitamin D3) 50 mcg PO DAILY 05/31/19 05/31/19 [Vitamin D3] escitalopram oxalate 5 mg PO DAILY 05/31/19 05/31/19 iron,carbonyl-vitamin C [Vitron-C] 1 tab PO DAILY 05/31/19 05/31/19 metoprolol succinate 25 mg PO DAILY 05/31/19 05/31/19 ropinirole 0.5 mg PO TID PRN 04/01/20 04/01/20 warfarin 2 mg PO 2XWK 05/31/19 05/31/19 New Rx's Medication Instructions Recorded aspirin 81 mg PO QAM 30 Days #30 tab 06/02/19 cephalexin 250 mg PO BID 5 Days #10 cap 06/02/19 - Action: The above medications, specifically ones for stroke treatment/prophylaxis, have been reviewed in detail with the patient and/or patient risk control representative(s) prior to discharge. This includes indication, common adverse reactions, drug interactions, and medication administration. Medication counseling has been employed using the teach-back method to ensure understanding. - Outcome: The patient has demonstrated understanding of the medications. Please note, they are aware that the pharmacist will call them within 72 hours post-discharge to confirm that the appropriate medications are being taken and answer any further medication related questions the patient might have at that time. Contact information Individual to be contacted: PatientLeslie Phone number: [phone] Best time to call: anytime of the day Additional comments: - Patient has been on baby aspirin before, high bleed risk with concomitant warfarin use Thank you for allowing pharmacy to be involved in the care of this patient. Please call [phone] or [phone] with any additional questions
--- NOTE | 2019-06-02 13:08 | XRay Report ---
XR chest 1V portable CLINICAL HISTORY: r/o pneumonia dyspnea COMPARISON STUDY: 05/31/2019 FINDINGS: The lungs remain clear. Diaphragms are smooth. There is a permanent bipolar cardiac pacemak er. No evidence of pneumothorax. IMPRESSION: No acute process. No change from the prior exam. ACT 112: Negative or not required by law. The above report was generated using voice recognition software. It may contain grammatical, syntax or spelling errors. Electronically signed by: Masood Wild M.D. 06/02/2019 1:07 PM
[2019-06-02 13:22] VITALS: BP 145/63
[2019-06-02] MEDS ORDERED: DIGOXIN 0.125 MG TAB PO SCH (16:00)
[2019-06-03] MEDS ORDERED: WARFARIN SOD 2 MG TAB PO SCH (16:00)
--- NOTE | 2019-06-05 10:25 | Pharmacy Report ---
Pharmacist Post D/C Phone Note - Phone Note: Date of phone call: June 05, 2019. Individual with whom pharmacist spoke to: MARY WINKLER The following questions were reviewed during the phone call with responses listed below each: Can you tell me the medications that you are currently taking as well as when and how you take each medication? -See Table Below When have you missed any doses of your medications? - NO What side effects are you having from your medications, specifically, the new medications you were started on? - NO What questions do you have about your medications? - NO What problems are you having obtaining your medications? - NO When is your next appointment with your primary care doctor? - WEDNESDAY WITH DR PRICE (06/08/2019) Additional comments: - HARRY (PHARMACIST) IS AWARE PATIENT ON BOTH COUMADIN AND ASPIRIN. RECHECK WARFARIN ON 06/19 PER HIS DIRECTION. As per the Pharmacist Discharge Counseling for Stroke Patients Protocol, this phone call has been completed within 72 hours of discharge. Thank you for allowing us to be involved in the care of this patient. - Home Medications: Home Medications Medication Instructions Recorded Confirmed acidophilus-pectin, citrus 1 cap PO DAILY 12/25/17 05/31/19 [Acidophilus Probiotic] digoxin 0.125 mg PO 3XWK 12/25/17 05/31/19 famotidine 20 mg PO BID PRN 12/25/17 05/31/19 levocetirizine 5 mg PO HS 12/25/17 05/31/19 levothyroxine 50 mcg PO DAILYBB 12/25/17 05/31/19 loperamide 2 mg PO DIRECTED PRN MDD 16 12/25/17 05/31/19 MG/24 HOURS nitroglycerin 0.4 mg SUBLINGUAL DIRECTED PRN 12/25/17 05/31/19 ondansetron 4 mg TRANSLINGUAL QID PRN 12/25/17 05/31/19 rosuvastatin 10 mg PO HS 12/25/17 05/31/19 warfarin 1 mg PO 5XWK 12/25/17 05/31/19 betamethasone dipropionate 1 applic TOPICAL BID PRN 01/02/18 05/31/19 diphenhydramine-zinc acetate 1 applic TOPICAL QID PRN 01/02/18 05/31/19 acetaminophen [Tylenol] 650 mg PO Q6H PRN 08/21/18 05/31/19 amiodarone 200 mg PO DAILY 08/21/18 05/31/19 hydroxyzine HCl 25 mg PO Q6 PRN 08/21/18 05/31/19 ropinirole 1 mg PO HS PRN 08/21/18 05/31/19 Vitron-C 1 tab PO DAILY 05/31/19 05/31/19 cholecalciferol (vitamin D3) 50 mcg PO DAILY 05/31/19 05/31/19 [Vitamin D3] escitalopram oxalate 5 mg PO DAILY 05/31/19 05/31/19 metoprolol succinate 25 mg PO DAILY 05/31/19 05/31/19 ropinirole 0.5 mg PO TID PRN 05/31/19 05/31/19 warfarin 2 mg PO 2XWK 05/31/19 05/31/19 New Rx's Medication Instructions Recorded aspirin 81 mg PO QAM 30 Days #30 tab 06/02/19 cephalexin 250 mg PO BID 5 Days #10 cap 06/02/19
--- NOTE | 2019-06-07 12:18 | Discharge Summary ---
Date of Service June 07, 2019 Admission HPI Per Admitting Provider DICTATED BY: René Tan MD DATE OF ADMISSION: 05/31/2019 CHIEF COMPLAINT: Stroke-like symptoms. HISTORY OF PRESENT ILLNESS: This is an 89-year-old female with past medical history significant for hyperlipidemia, hypothyroidism, paroxysmal atrial fibrillation, history of SVT, tachy-enid syndrome, status post pacemaker, chronic diastolic CHF, hypertension, chronic kidney disease stage III, vitamin D deficiency, restless legs syndrome, senile osteoporosis, Dupuytren contracture of the right hand, sensorineural hearing loss bilateral, generalized anxiety, history of frequent falls, who lives at home with her daughter, walks with help of cane and also holding furniture, presents with syncope and stroke-like symptoms. The patient was putting her kitchenware in the cupboard when she suddenly fell down and passed out and daughter was in the house. She called her nephew who lives next door. They tried to lift her hands, but the hands were dropping down. As per the ER physician, when the EMS arrived, she was having some right facial droop and right hand weakness. The stroke alert was called, but as the patient came to the ER, she was fine and had complaint of some chest pain. A CT of the head and CTA head and neck were done which are unremarkable. Initially when she fell down she was staring, but she was not speaking much. Right now speech is clear. 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 She also is status post EEG recently and it was unremarkable. The patient denies any biting of tongue or shaking of the body or bowel or bladder incontinence during the episode. When she came in today, she had some chest pain, but that has resolved now. She has some headache, but that is getting better. Denies any blurred vision. Somewhat hard to hear. Denies any cough. No runny nose, no sore throat, no difficulty swallowing. She says has chronic shortness of breath with exertion. Denies any fever, chills. No nausea, no abdominal pain. No diarrhea or constipation, no blood in the stools. Normal bladder movements. Appetite is okay. No swelling in the legs, no rash. Currently, resting comfortable and hemodynamically stable. Admission Exam Per Admitting Provider GENERAL: The patient is old and frail, not in acute distress. VITAL SIGNS: Temperature 36.5, pulse 65, respiratory rate 21, blood pressure 178/85, oxygen 97% on room air. HEENT: No pallor, no icterus. Extraocular muscles intact. NECK: No JVD, no neck masses, no carotid bruits. CARDIOVASCULAR: S1, S2 heard, regular rate and rhythm, no murmur, no gallop. RESPIRATORY SYSTEM: Normal AP diameter. No accessory muscle use. No wheezing, no crackles. ABDOMEN: Soft, bowel sounds present, nontender. No distention. CENTRAL NERVOUS SYSTEM: Alert and oriented. Power 4/5 in all extremities. No pronator drift. Able to hold her lower extremities for a few seconds. Sensation is intact, position sense intact. EXTREMITIES: No edema, no erythema. Principal Diagnosis Unresponsive episode, strokelike symptoms-resolved, UTI, acute on chronic renal failure, hypertension Discharge Exam Constitutional + thin; not ill appearing ENMT external ear and nose normal, oropharynx normal Neck trachea midline, no thyromegaly Respiratory normal respiratory effort; no respiratory distress Auscultation: lungs clear to auscultation bilaterally Cardiovascular Rate/Rhythm: regular rate and regular rhythm Heart Sounds: no murmur Gastrointestinal (Abdomen) Inspection/Auscultation: normal bowel sounds Percussion/Palpation: abdomen soft Lymphatic no cervical or axillary lymphadenopathy Discharge Data Allergies Allergy/AdvReac Type Severity Reaction Status Date / Time ciprofloxacin Allergy Intermediate RASH Verified 05/31/19 22:57 Sulfa (Sulfonamide Allergy Intermediate HIVES, RASH Verified 05/31/19 22:57 Antibiotics) adhesive Allergy Unknown ADHESIVE Verified 08/21/18 21:14 TAPE Cipro Allergy Unknown RASH Verified 10/25/17 05:26 estrogens, conjugated Allergy Unknown SEVERE Verified 05/31/19 22:58 RASH, PAINFUL FROM VAGINAL CREAM tetanus toxoid, adsorbed Allergy Unknown UNKNOWN Verified 05/31/19 22:58 Consultations 05/31/19 22:58 ED Decision to Admit Stat 06/01/19 00:31 Consult Case Management - Discharge Planning Routine Consult Case Management - Discharge Planning Routine 06/01/19 08:00 Consult Neurology Routine Ordered Studies 05/31/19 20:57 CT angio head w con Stat CT angio neck with con Stat CT head/brain wo con Stat Hospital Course (1) Episode of unresponsiveness: Admitted with unresponsive episode/strokelike symptoms with right-sided weakness and right facial droop Stroke alert was called and relevant investigation including strokelike symptoms did not show any evidence of stroke No more episode Appreciate neurology input and recommendation Denies any more neurological symptoms Will be discharged home this afternoon (2) Acute on chronic renal failure: Noted to have acute kidney injury with high BUN and creatinine of 21/1.75 Kidney function improved subsequently Creatinine is 1.27 as of today (3) UTI (urinary tract infection): Urine culture grew Proteus mirabilis She was on intravenous ceftriaxone Now changed to oral Keflex to continue for next 5 days (4) HTN (hypertension): Controlled (5) Hypothyroidism: Continue supplement DVT prophylaxis Has been on Coumadin INR is therapeutic Disposition Discharge home this afternoon Continue home health and home PT Total Time Total Time Spent Total Time Spent (In Minutes): 35 minutes Total Time Includes: Examination of the Patient, Discharge Planning, Medication Reconciliation and Communication With Other Providers Discharge Plan Discharge Items Patient Disposition: Home - Home Health Services Reason For Visit: STROKE LIKE SYMPTOMS Discharge Diagnosis: Unresponsive episode, strokelike symptoms-resolved, UTI, acute on chronic renal failure, hypertension Condition on Discharge: Good Activity: Resume your previous activity Non-emergency contact: Primary Care Provider Call non-emergency contact if: you have any medication questions and your symptoms worsen Follow-up/Referrals: Roly Vogel MD [Primary Care Provider] - 06/08/19 11:20 am Diet: Heart Healthy Addtl Attending Provider Instructions: Please take precaution to avoid falls Please finish the course of antibiotic Continue PT and OT as an outpatient Pending Studies at Discharge: No Stand-Alone Forms: Medications to Prevent Stroke, My [facility] [employer], Smoking Cessation Medications and DC Order Prescriptions: New aspirin 81 mg Tablet,Delayed Release (Dr/Ec) 81 mg PO QAM 30 Days Qty: 30 RF: 0 Continued amiodarone 200 mg Tablet 200 mg PO DAILY RF: 0 hydroxyzine HCl 25 mg Tablet 25 mg PO Q6 PRN (Reason: Itching) RF: 0 ropinirole 1 mg Tablet 1 mg PO HS PRN (Reason: Restless Leg(S)) RF: 0 acetaminophen [Tylenol] 325 mg Tablet 650 mg PO Q6H PRN (Reason: Pain) RF: 0 warfarin 1 mg Tablet 2 mg PO 2XWK RF: 0 cholecalciferol (vitamin D3) [Vitamin D3] 50 mcg (2,000 unit) Tablet 50 mcg PO DAILY RF: 0 escitalopram oxalate 5 mg tablet 5 mg PO DAILY RF: 0 metoprolol succinate 25 mg tablet extended release 24 hr 25 mg PO DAILY RF: 0 Vitron-C 65 mg iron- 125 mg Tablet,Delayed Release (Dr/Ec) 1 tab PO DAILY RF: 0 ropinirole 0.5 mg Tablet 0.5 mg PO TID PRN (Reason: Restless Leg(S)) RF: 0 loperamide 2 mg Tablet 2 mg PO DIRECTED MDD 16 MG/24 HOURS PRN (Reason: Diarrhea) RF: 0 famotidine 20 mg Tablet 20 mg PO BID PRN (Reason: GASTRITIS) RF: 0 levothyroxine 50 mcg Tablet 50 mcg PO DAILYBB RF: 0 nitroglycerin 0.4 mg Tablet, Sublingual 0.4 mg Sublingual DIRECTED PRN (Reason: Chest Pain) RF: 0 digoxin 125 mcg Tablet 0.125 mg PO 3XWK RF: 0 warfarin 1 mg Tablet 1 mg PO 5XWK RF: 0 ondansetron 4 mg Tablet,Disintegrating 4 mg translingual QID PRN (Reason: Nausea) RF: 0 rosuvastatin 10 mg Tablet 10 mg PO HS RF: 0 levocetirizine 5 mg Tablet 5 mg PO HS RF: 0 acidophilus-pectin, citrus [Acidophilus Probiotic] 100 million cell-10 mg Capsule 1 cap PO DAILY RF: 0 diphenhydramine-zinc acetate 2-0.1 % cream 1 applic Topical QID PRN (Reason: Itching) RF: 0 betamethasone dipropionate 0.05 % ointment 1 applic Topical BID PRN (Reason: Itching) RF: 0 Discharge Orders: Discharge Order (Routine); Ordered 06/02/19 Ordered By: Kevon Cuevas/Other Patient Handouts: Stroke Medicine Self Administer, Stroke Risk Factors, Foods Heart Healthy, A1C Admission Data Admit Date/Time: 05/31/19 23:45 Attending Provider: Kevon Hernandez Admit Provider: René Tan Primary Care Provider: Roly Vogel Other Providers: Jamie Salgado Other Interventions: Discharge Summary Assessment (RN) Last Done: 06/02/19 13:19 DC Date/Time DO NOT enter until pt leaves facility: 06/02/19 03:18
== END 2019-06-02 03:18 | disposition home health service (06) ==
LOC: ED 20:45 → 2S 20:45

== ENCOUNTER 2020-04-14 18:41 | Inpatient (IN) ==
--- NOTE | 2020-04-14 18:48 | Emergency Department Note ---
Impression & Plan Syncope, Headache ED Provider Note NAME: MARY WINKLER AGE: 89 SEX: F : 1930 ARRIVES VIA: Ambulance INFORMANT: Patient, ED PROVIDER(S): Jean Carlos Palumbo MD Chief Complaint: Syncope HPI: Patient reportedly was at the dinner table when she had an episode of syncope. Patient subsequently had one more upon EMS arrival and subsequently in the ambulance. No BSG was reported. The patient denies any diabetic medication. The patient had had a fall struck the back of her head. The patient does take Coumadin does have a known history of A. fib tachybradycardia syndrome SVT and a pacemaker. The patient is unsure as to what time she does follow with Dr. Estevez with [facility] cardiology. Patient states that she is compliant with her medications and did take her medications today. Patient has fevers chills chest pains or shortness of breath. The patient does complain of some mild frontal headache. The patient has no prior history of seizure, tongue biting or incontinence. ROS: See HPI for pertinent positives and negatives. A total of 10 systems were reviewed and otherwise negative. Past medical history: See below Surgical history: See below Social history: See below Physical Exam: GENERAL: Wearing glasses and a mask. NAD, non-toxic. EYE EXAM: Normal conjunctiva. PERRL, no anisocoria and EOM's grossly intact w/o pain. NECK: Supple, no nuchal rigidity, no adenopathy, non-tender. No signs of meningismus. LUNGS: Clear to auscultation. Normal chest wall mechanics. Chest: Pacer in left chest. HEART: NSR, no MRG. ABDOMEN: Abdomen soft, non-tender, normo-active bowel sounds, no masses, no rebound or guarding. BACK: No CVA TTP. SKIN: No rashes and no bruising. UPPER EXTREMITIES: Upper extremities are grossly normal. LOWER EXTREMITIES: Grossly normal, no edema. NEURO EXAM: A&O x3, cranial nerves II-XII grossly intact, normal speech, moves all 4 extremities on command w/o issue. Differential diagnoses: Vasovagal event, dehydration, infection, hypoglycemia, electrolyte abnormalities, cardiac sources, intracerebral event, pulmonary embolism, seizure, toxicologic, neurologic, as well as other pathologies. Course: Patient was seen and evaluated the bedside. Full history physical exam was performed. EKG: Indication: Syncope Atrial paced rhythm with prolonged IL, rate of 66, IL interval 250, normal QRS duration, left axis deviation. No significant change from comparison EKG May 31, 2019. Imaging Studies: Radiology results as stated below per my review in the radiologist's interpretation: CT head/brain wo con CLINICAL HISTORY: syncope COMPARISON STUDY: 05/31/2019 TECHNIQUE: Axial CT of the brain is performed from the vertex to the skull base. IV contrast was not administered for this examination. A dose lowering technique was utilized adhering to the principles of ALARA. CT DOSE: FINDINGS: No intra or extra-axial mass lesions are visualized. There is no CT evidence of acute cortical infarction. There is no evidence of midline shift. There is no ac ak chin hemorrhage. No calvarial fractures are visualized. There are moderate white matter hypodensities likely on a small vessel basis. There is no evidence of pathologic ventricular dilatation. There is no evidence of acute sinusitis IMPRESSION: No acute intracranial findings ACT 112: Negative or not required by law. Electronically signed by: Brain Crocker M.D. 04/14/2020 7:25 PM Dictated: 04/14/201923 Transcribed: 04/14/201923 CT OF THE CERVICAL SPINE CLINICAL HISTORY: Syncope. Neck pain status post trauma COMPARISON STUDY: No previous studies for comparison. CT DOSE: 1006.98 mGy.cm TECHNIQUE: CT scan of the cervical spine was performed from the skull base to the thoracic inlet. Images are reviewed in the axial, sagittal, and coronal planes. IV contrast was not administered for this examination. A dose lowering technique was utilized adhering to the principles of ALARA. FINDINGS: The visualized portions of the lung apices reveal no evidence of pneumothorax. The prevertebral soft tissues are normal. No fractures or subluxations are visualized. There are multilevel degenerative changes IMPRESSION: No evidence of acute fracture or traumatic subluxation. ACT 112: Negative or not required by law. Electronically signed by: Brain Crocker M.D. 04/14/2020 7:30 PM Dictated: 04/14/201925 Transcribed: 04/14/201925 Cardiac monitoring: An order was placed for continuous cardiac monitoring. The monitor shows a rate of 78 with sinus rhythm. MDM: Patient was seen due to concern for recurrent syncope blood work was obtained along with a CT of the head and cervical spine. BSG obtained. Pacemaker was interrogated. Reportedly from [employer] rep no acute issues based on the pacemaker interrogation. BSG is normal. CTA of the head and cervical spine negative. Patient does have potentially some mildly worsening kidney dysfunction versus mild CHASITY Baseline creatinine 1.2 today 1.7. Patient has a normal white count very mild anemia with a hemoglobin of 11.8. Platelet count is unremarkable. INR just slightly subtherapeutic at 1.9. AST 51. Troponin is not detectable. TSH unremarkable. Covid negative. Patient has had no further syncopal events. I did speak with the on-call hospitalist Dr. Mayorga and the patient was admit maynor to medicine service. Past Med/Surg History Medical History (Updated 04/14/20 @ 20:00 by Jean Carlos Palumbo MD) Atrial fibrillation Chronic diastolic CHF (congestive heart failure) CKD (chronic kidney disease), stage III Diverticular disease of colon Dyslipidemia HTN (hypertension) HTN (hypertension) Hypothyroidism Pacemaker RLS (restless legs syndrome) Rosacea SVT (supraventricular tachycardia) Tachy-enid syndrome Surgical History History of carpal tunnel surgery History of cataract surgery History of colon resection History of hysterectomy History of tonsillectomy and adenoidectomy History of total right knee replacement S/P laparoscopic-assisted sigmoidectomy S/P ELISHA (total abdominal hysterectomy) Family History Other No pertinent family history Social History Smoking Status: Never smoker Second Hand Exposure: No; Do You Dip or Chew Tobacco: No; Tobacco Cessation Education Requested by Patient: No Hx Alcohol Use: No Hx Substance Use: No Preferred Language: Latvian Communication Ability: Effective Visual Impairment: No Limitations Osteology Teacher Required: No Beliefs That Will Affect Care: None marital status: / Current Living Situation: Family Current Living Situation Comment: LIVES WITH DAUGHTER HERNANDO Other Information That Helps Us Care for You: No Feels Safe at Home: Yes Safety Concerns: Feels Safe At This Time Assistive Devices: Cane, Denture - Upper, Denture - Lower, Glasses, Hearing Aid - Bilateral and Walker Allergies Allergies Allergy/AdvReac Type Severity Reaction Status Date / Time ciprofloxacin Allergy Intermediate RASH Verified 04/14/20 20:16 Sulfa (Sulfonamide Allergy Intermediate HIVES, RASH Verified 04/14/20 20:16 Antibiotics) adhesive Allergy Unknown ADHESIVE Verified 04/14/20 20:16 TAPE Cipro Allergy Unknown RASH Verified 10/25/17 05:26 estrogens, conjugated Allergy Unknown SEVERE Verified 04/14/20 20:16 RASH, PAINFUL FROM VAGINAL CREAM tetanus toxoid, adsorbed Allergy Unknown UNKNOWN Verified 04/14/20 20:16 Home Meds Home Medications Medication Instructions Recorded Confirmed acidophilus-pectin, citrus 1 cap PO DAILY 12/25/17 04/14/20 [Acidophilus Probiotic] digoxin 0.125 mg PO 3XWK 12/25/17 04/14/20 famotidine 20 mg PO BID PRN 12/25/17 04/14/20 levothyroxine 50 mcg PO DAILYBB 12/25/17 04/14/20 loperamide 2 mg PO DIRECTED PRN MDD 16 12/25/17 04/14/20 MG/24 HOURS nitroglycerin 0.4 mg SUBLINGUAL DIRECTED PRN 12/25/17 04/14/20 ondansetron 4 mg TRANSLINGUAL QID PRN 12/25/17 04/14/20 rosuvastatin 10 mg PO HS 12/25/17 04/14/20 warfarin 1 mg PO 5XWK 12/25/17 04/14/20 betamethasone dipropionate 1 applic TOPICAL BID PRN 01/02/18 04/14/20 diphenhydramine-zinc acetate 1 applic TOPICAL QID PRN 01/02/18 04/14/20 acetaminophen [Tylenol] 650 mg PO Q6H PRN 08/21/18 04/14/20 amiodarone 200 mg PO DAILY 08/21/18 04/14/20 hydroxyzine HCl 25 mg PO Q6 PRN 08/21/18 04/14/20 ropinirole 1 mg PO HS PRN 08/21/18 04/14/20 Vitron-C 1 tab PO DAILY 05/31/19 04/14/20 cholecalciferol (vitamin D3) 50 mcg PO DAILY 05/31/19 04/14/20 [Vitamin D3] escitalopram oxalate 5 mg PO DAILY 05/31/19 04/14/20 metoprolol succinate 25 mg PO DAILY 05/31/19 04/14/20 ropinirole 0.5 mg PO TID PRN 05/31/19 04/14/20 warfarin 2 mg PO 2XWK 05/31/19 04/14/20 Results & Data (ED) Vital Signs Vital Signs - 24 hr 04/14/20 18:58 04/14/20 19:08 04/14/20 19:36 Temperature 36.9 C Temperature Source Oral Pulse Rate - Lying Pulse Rate - Sitting Pulse Rate - Standing Pulse Rate 80 Pulse Rate [Bilateral Apical] 65 61 Respiratory Rate 18 20 20 Blood Pressure - Lying Blood Pressure - Sitting Blood Pressure- Standing Blood Pressure 172/89 H Blood Pressure [Right Arm] 165/73 H 122/69 Blood Pressure Mean 116 Blood Pressure Mean [Right Arm] 103 86 Pulse Oximetry 98 98 97 Oxygen Delivery Method Room Air Room Air Room Air Sepsis Recent Fever Within 48 Hours No Sepsis New/Unexplained Change in Mental Status No Sepsis Action Taken by Nursing No Action Required 04/14/20 20:14 04/14/20 20:36 Temperature Temperature Source Pulse Rate - Lying 60 Pulse Rate - Sitting 60 Pulse Rate - Standing 74 Pulse Rate Pulse Rate [Bilateral Apical] 62 Respiratory Rate 20 Blood Pressure - Lying 157/81 H Blood Pressure - Sitting 168/73 H Blood Pressure- Standing 142/96 H Blood Pressure Blood Pressure [Right Arm] 165/69 H Blood Pressure Mean Blood Pressure Mean [Right Arm] 101 Pulse Oximetry 97 Oxygen Delivery Method Room Air Sepsis Recent Fever Within 48 Hours Sepsis New/Unexplained Change in Mental Status Sepsis Action Taken by [facility] Medications Current Medication List: was personally reviewed by me Laboratory Data Attestation: I reviewed the patient's lab results. Result diagrams: 04/14/20 19:05 04/14/20 19:05 Lab Results 04/14/20 04/14/20 04/14/20 Range/Units 18:56 19:05 19:05 WBC 7.38 (4.8-10.8) K/uL RBC 3.85 L (4.2-5.4) M/uL Hgb 11.8 L (12.0-16.0) g/dL Hct 35.6 L (37-47) % MCV 92.5 (80-100) fL MCH 30.6 (25-34) pg MCHC 33.1 (32-36) g/dL RDW Std Deviation 50.5 H (36.4-46.3) fL RDW Coeff of Mino 14.9 H (11.5-14.5) % Plt Count 221 (130-400) K/uL MPV 11.1 H (7.4-10.4) fL Immature Gran % (Auto) 0.3 % Neut % (Auto) 66.6 % Lymph % (Auto) 22.2 % Bath % (Auto) 9.2 % Eos % (Auto) 1.4 % Baso % (Auto) 0.3 % Neut # (Auto) 4.92 (1.4-6.5) K/uL Lymph # (Auto) 1.64 (1.2-3.4) K/uL Bath # (Auto) 0.68 H (0.11-0.59) K/uL Eos # (Auto) 0.10 (0-0.5) K/uL Baso # (Auto) 0.02 (0-0.2) K/uL Immature Gran # (Auto) 0.02 (0.00-0.02) K/uL PT 18.7 H (9.0-12.0) Seconds INR 1.9 H (0.9-1.1) Sodium (136-145) mmol/L Potassium (3.5-5.1) mmol/L Chloride (98-107) mmol/L Carbon Dioxide (21-32) mmol/L Anion Gap (3-11) BUN (7-18) mg/dl Creatinine (0.6-1.2) mg/dl Est Cr Clr Drug Dosing ml/min Est GFR ( Amer) Est GFR (Non-Af Amer) BUN/Creatinine Ratio (10-20) Glucose (70-99) mg/dl POC Glucose 111 H (70-99) mg/dl Calcium (8.5-10.1) mg/dl Magnesium (1.8-2.4) mg/dl Total Bilirubin (0.2-1) mg/dl AST (15-37) U/L ALT (12-78) U/L Alkaline Phosphatase (45-117) U/L Troponin I (0-0.045) ng/ml Total Protein (6.4-8.2) gm/dl Albumin (3.4-5.0) gm/dl Globulin (2.5-4.0) gm/dl Albumin/Globulin Ratio (0.9-2) TSH (0.300-4.500) uIu/ml Digoxin (0.8-2.0) ng/ml COVID-19 Eval Order SARS-CoV-2, RNA, NAAT (NEGATIVE) 04/14/20 04/14/20 04/14/20 Range/Units 19:05 19:10 19:10 WBC (4.8-10.8) K/uL RBC (4.2-5.4) M/uL Hgb (12.0-16.0) g/dL Hct (37-47) % MCV (80-100) fL MCH (25-34) pg MCHC (32-36) g/dL RDW Std Deviation (36.4-46.3) fL RDW Coeff of Mino (11.5-14.5) % Plt Count (130-400) K/uL MPV (7.4-10.4) fL Immature Gran % (Auto) % Neut % (Auto) % Lymph % (Auto) % Bath % (Auto) % Eos % (Auto) % Baso % (Auto) % Neut # (Auto) (1.4-6.5) K/uL Lymph # (Auto) (1.2-3.4) K/uL Bath # (Auto) (0.11-0.59) K/uL Eos # (Auto) (0-0.5) K/uL Baso # (Auto) (0-0.2) K/uL Immature Gran # (Auto) (0.00-0.02) K/uL PT (9.0-12.0) Seconds INR (0.9-1.1) Sodium 137 (136-145) mmol/L Potassium 4.1 (3.5-5.1) mmol/L Chloride 103 (98-107) mmol/L Carbon Dioxide 22 (21-32) mmol/L Anion Gap 11.0 (3-11) BUN 29 H (7-18) mg/dl Creatinine 1.76 H (0.6-1.2) mg/dl Est Cr Clr Drug Dosing 18.5 ml/min Est GFR ( Amer) 29.2 Est GFR (Non-Af Amer) 25.2 BUN/Creatinine Ratio 16.5 (10-20) Glucose 99 (70-99) mg/dl POC Glucose (70-99) mg/dl Calcium 8.7 (8.5-10.1) mg/dl Magnesium 2.4 (1.8-2.4) mg/dl Total Bilirubin 0.6 (0.2-1) mg/dl AST 51 H (15-37) U/L ALT 55 (12-78) U/L Alkaline Phosphatase 98 (45-117) U/L Troponin I < 0.015 (0-0.045) ng/ml Total Protein 7.3 (6.4-8.2) gm/dl Albumin 3.5 (3.4-5.0) gm/dl Globulin 3.8 (2.5-4.0) gm/dl Albumin/Globulin Ratio 0.9 (0.9-2) TSH 3.040 (0.300-4.500) uIu/ml Digoxin (0.8-2.0) ng/ml COVID-19 Eval [facility] SARS-CoV-2, RNA, NAAT NEGATIVE (NEGATIVE) 04/14/20 Range/Units 20:36 WBC (4.8-10.8) K/uL RBC (4.2-5.4) M/uL Hgb (12.0-16.0) g/dL Hct (37-47) % MCV (80-100) fL MCH (25-34) pg MCHC (32-36) g/dL RDW Std Deviation (36.4-46.3) fL RDW Coeff of Mino (11.5-14.5) % Plt Count (130-400) K/uL MPV (7.4-10.4) fL Immature Gran % (Auto) % Neut % (Auto) % Lymph % (Auto) % Bath % (Auto) % Eos % (Auto) % Baso % (Auto) % Neut # (Auto) (1.4-6.5) K/uL Lymph # (Auto) (1.2-3.4) K/uL Bath # (Auto) (0.11-0.59) K/uL Eos # (Auto) (0-0.5) K/uL Baso # (Auto) (0-0.2) K/uL Immature Gran # (Auto) (0.00-0.02) K/uL PT (9.0-12.0) Seconds INR (0.9-1.1) Sodium (136-145) mmol/L Potassium (3.5-5.1) mmol/L Chloride (98-107) mmol/L Carbon Dioxide (21-32) mmol/L Anion Gap (3-11) BUN (7-18) mg/dl Creatinine (0.6-1.2) mg/dl Est Cr Clr Drug Dosing ml/min Est GFR ( Amer) Est GFR (Non-Af Amer) BUN/Creatinine Ratio (10-20) Glucose (70-99) mg/dl POC Glucose (70-99) mg/dl Calcium (8.5-10.1) mg/dl Magnesium (1.8-2.4) mg/dl Total Bilirubin (0.2-1) mg/dl AST (15-37) U/L ALT (12-78) U/L Alkaline Phosphatase (45-117) U/L Troponin I (0-0.045) ng/ml Total Protein (6.4-8.2) gm/dl Albumin (3.4-5.0) gm/dl Globulin (2.5-4.0) gm/dl Albumin/Globulin Ratio (0.9-2) TSH (0.300-4.500) uIu/ml Digoxin 0.8 (0.8-2.0) ng/ml COVID-19 Eval Order SARS-CoV-2, RNA, NAAT (NEGATIVE) Administered Medications Acetaminophen (Acetaminophen 325 Mg Tab) 650 mg PO Q4H PRN PRN Reason: Pain or Fever Stop: 05/14/20 22:11 Last Admin: 04/14/20 22:56 Dose: 650 mg Documented by: [id number] Sodium Chloride (Nss 1000ml) 1,000 mls @ 60 mls/hr IV .[id number] ONE Stop: 04/15/20 15:09 Last Admin: 04/14/20 22:58 Dose: 60 mls/hr Documented by: [id number] Ropinirole HCl (Ropinirole Hcl 1 Mg Tablet) 1 mg PO HS PRN PRN Reason: Restless Leg(S) Stop: 05/14/20 22:11 Last Admin: 04/14/20 22:56 Dose: 1 mg Documented by: [id number] Rosuvastatin Calcium (Rosuvastatin Calcium 10 Mg Tab) 10 mg PO HS JAKI Stop: 05/14/20 22:11 Last Admin: 04/14/20 22:56 Dose: 10 mg Documented by: [id number] Discontinued Medications Sodium Chloride (Nss) 500 mls @ 999 mls/hr IV .Q31M JAKI Stop: 04/14/20 19:30 Last Infusion: 04/14/20 20:45 Dose: 0 mls/hr Documented by: [id number] Admin: 04/14/20 19:58 Dose: 999 mls/hr Documented by: [id number] Sodium Chloride (Nss 1000ml) 500 mls @ 999 mls/hr IV .Q31M ONE Stop: 04/14/20 20:31 Last Infusion: 04/14/20 20:44 Dose: 0 mls/hr Documented by: [id number] Admin: 04/14/20 20:03 Dose: 999 mls/hr Documented by: [id number] Warfarin Sodium (Warfarin Sod 5 Mg Tab) 5 mg PO NOW ONE Stop: 04/14/20 22:31 Last Admin: 04/14/20 22:56 Dose: 5 mg Documented by: [id number] Discharge Plan Visit Data Chief Complaint: Syncope ED Provider: Jean Carlos Palumbo Discharge Problem: Syncope, Headache Patient Disposition: Admitted As Inpatient Discharge Instructions Interventions: ED Discharge Assessment Last Done: 04/14/20 21:44 Discharge Problem: Syncope Qualifiers: Syncope type: unspecified Qualified Code(s): R55 - Syncope and collapse Headache Qualifiers: Headache type: unspecified Headache chronicity pattern: acute headache Intractability: not intractable Qualified Code(s): R51.9 - Headache, unspecified
[2020-04-14] MEDS ORDERED: SODIUM CHLORIDE 0.9% 500 ML IV SCH (19:00)
[2020-04-14 19:12] LABS: Basophils # (auto) 0.02 K/uL (0-0.2); Basophils % (auto) 0.3 %; Eosinophils % (auto) 1.4 %; Hematocrit (blood only) 35.6 % (37-47); Hemoglobin 11.8 g/dL (12.0-16.0); Immature Granulocytes # (auto) 0.02 K/uL (0.00-0.02); Immature Granulocytes % (auto) 0.3 %; Lymphocytes # (auto) 1.64 K/uL (1.2-3.4); Lymphocytes % (auto) 22.2 %; Mean Corpuscular Hemoglobin 30.6 pg (25-34); Mean Corpuscular Hgb Conc 33.1 g/dL (32-36); Mean Corpuscular Volume 92.5 fL (80-100); Mean Platelet Volume 11.1 fL (7.4-10.4); Monocytes # (auto) 0.68 K/uL (0.11-0.59); Monocytes % (auto) 9.2 %; Neutrophils # (auto) 4.92 K/uL (1.4-6.5); Neutrophils % (auto) 66.6 %; Platelet Count 221 K/uL (130-400); RDW Coefficient of Variation 14.9 % (11.5-14.5); RDW Standard Deviation 50.5 fL (36.4-46.3); Red Blood Count 3.85 M/uL (4.2-5.4); White Blood Count 7.38 K/uL (4.8-10.8)
[2020-04-14 19:22] LABS: INR 1.9 (0.9-1.1); Prothrombin Time 18.7 Seconds (9.0-12.0)
--- NOTE | 2020-04-14 19:27 | CT Scan Report ---
CT head/brain wo con CLINICAL HISTORY: syncope COMPARISON STUDY: 05/31/2019 TECHNIQUE: Axial CT of the brain is performed from the vertex to the skull base. IV contrast was not administered for this examination. A dose lowering technique was utilized adhering to the principles of ALARA. CT DOSE: FINDINGS: No intra or extra-axial mass lesions are visualized. There is no CT evidence of acute cortical infarc tion. There is no evidence of midline shift. There is no acute hemorrhage. No calvarial fractures ar e visualized. There are moderate white matter hypodensities likely on a small vessel basis. There is no evidence of pathologic ventricular dilatation. There is no evidence of acute sinusitis IMPRESSION: No acute intracranial findings ACT 112: Negative or not required by law. Electronically signed by: Brain Crocker M.D. 04/14/2020 7:25 PM
--- NOTE | 2020-04-14 19:31 | CT Scan Report ---
CT OF THE CERVICAL SPINE CLINICAL HISTORY: Syncope. Neck pain status post trauma COMPARISON STUDY: No previous studies for comparison. CT DOSE: 1006.98 mGy.cm TECHNIQUE: CT scan of the cervical spine was performed from the skull base to the thoracic inlet. Renee ges are reviewed in the axial, sagittal, and coronal planes. IV contrast was not administered for thi s examination. A dose lowering technique was utilized adhering to the principles of ALARA. FINDINGS: The visualized portions of the lung apices reveal no evidence of pneumothorax. The prevertebral soft tissues are normal. No fractures or subluxations are visualized. There are multilevel degenerative changes IMPRESSION: No evidence of acute fracture or traumatic subluxation. ACT 112: Negative or not required by law. Electronically signed by: Brain Crocker M.D. 04/14/2020 7:30 PM
[2020-04-14 19:32] LABS: Alanine Aminotransferase 55 U/L (12-78); Albumin Level 3.5 gm/dl (3.4-5.0); Aspartate Aminotransferase 51 U/L (15-37); BUN Creatinine Ratio 16.5 (10-20); Blood Urea Nitrogen 29 mg/dl (7-18); Calcium 8.7 mg/dl (8.5-10.1); Carbon Dioxide 22 mmol/L (21-32); Chloride 103 mmol/L (98-107); Creatinine Clr Calc Pharmacy 18.5 ml/min; Est GFR (African American) 29.2; Est GFR (Non-African American) 25.2; Glucose 99 mg/dl (70-99); Magnesium 2.4 mg/dl (1.8-2.4); Potassium 4.1 mmol/L (3.5-5.1); Sodium 137 mmol/L (136-145)
[2020-04-14 19:43] LABS: Albumin Globulin Ratio 0.9 (0.9-2); Alkaline Phosphatase 98 U/L (45-117); Bilirubin,Total 0.6 mg/dl (0.2-1); Globulin 3.8 gm/dl (2.5-4.0); Total Protein 7.3 gm/dl (6.4-8.2); Troponin I < 0.015 ng/ml (0-0.045)
[2020-04-14] MEDS ORDERED: SODIUM CHLORIDE 0.9% 1000ML 500 ML IV ONE (20:01)
--- NOTE | 2020-04-14 20:51 | History & Physical Report ---
Date of Service April 14, 2020 Assessment & Plan (1) Syncope: recurrent syncope (vasovagal versus nonepileptic seizures as per records) Rule out pacemaker dysfunction, SSS status post PPM, INR slightly subtherapeutic on Coumadin Rule out orthostasis Rule out UTI as precipitant given asymptomatic pyuria, patient not septic chronic diastolic heart failure EF 55-60%, TTE 2019), patient euvolemic to dry ARF on CKD, kidney function a little off baseline HTN, slight elevated hyperlipidemia on statin Rx hypothyroidism, euthyroid as of today's TSH chronic anemia, hemoglobin better than baseline likely secondary to hemoconcentration OBS PCU Check orthostatic vitals Pacemaker interrogation. May need Neurology reevaluation if pacemaker interrogation negative RE recurrent syncope, hx possible nonepileptic seizures) Follow urine CS, hold antibiotics for now unless patient develops fever Monitor creatinine response to IVF Monitor BP, initiate amlodipine if with persistent BP elevation DVT prophylaxis Coumadin INR goal between 2 and 3 Full code Patient requests that her daughter be updated by providers. Ms. Jason Keith, contact #[phone]. Text document was generated using [employer] voice recognition software. It may contain grammatical or spelling errors. Kindly contact undersigned for clarification of any documentation item in question. History of Present Illness Recurrent syncope Chief Complaint: Syncope Primary Care Provider: Roly Vogel MD History obtained from the patient and records. Medical history significant for chronic diastolic heart failure EF 55-60%, TTE 2019), SSS sp PPM Coumadin, HTN, hyperlipidemia, hypothyroidism, CRI (baseline creatinine 1.6), hypothyroidism, chronic anemia (baseline hemoglobin 10), recurrent diverticulitis status post surgery. recurrent syncope (vasovagal versus nonepileptic seizures as per records) Last confinement May 2019 for recurrent syncope, strokelike symptoms, UTI. Patient evaluated by neurology during confinement. Syncopal event vasovagal versus nonepileptic seizures on review of inpatient/outpatient neurology notes. Outpatient EEG from last year was normal as per documentation. Patient was at the dinner table with her daughter when she had recurrence of syncopal event causing her to fall backwards resulting in the back of her head hitting the door. Was just out for a few moments. Patient woke up with achy posterior headache, patient denies chest pain, S OB. No witness grand mal seizure, incontinence. Recurrent syncopal episodes upon EMS arrival and in the ambulance as per documentation. Patient brought to the ER for evaluation. MEDICAL HISTORY: As above. SURGERIES: She has had pacemaker placement, carpal tunnel surgery, cataract surgery, hysterectomy, partial colectomy. Family History : HTN PERSONAL AND SOCIAL HISTORY: Nonsmoker. No chronic intake of alcoholic beverages. 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 Lives with the daughter. Allergies Allergy/AdvReac Type Severity Reaction Status Date / Time ciprofloxacin Allergy Intermediate RASH Verified 04/14/20 20:16 Sulfa (Sulfonamide Allergy Intermediate HIVES, RASH Verified 04/14/20 20:16 Antibiotics) adhesive Allergy Unknown ADHESIVE Verified 04/14/20 20:16 TAPE Cipro Allergy Unknown RASH Verified 10/25/17 05:26 estrogens, conjugated Allergy Unknown SEVERE Verified 04/14/20 20:16 RASH, PAINFUL FROM VAGINAL CREAM tetanus toxoid, adsorbed Allergy Unknown UNKNOWN Verified 04/14/20 20:16 Home Medications Medication Instructions Recorded Confirmed Type acidophilus-pectin, citrus 1 cap PO DAILY 12/25/17 04/14/20 History [Acidophilus Probiotic] digoxin 0.125 mg PO 3XWK 12/25/17 04/14/20 History famotidine 20 mg PO BID PRN 12/25/17 04/14/20 History levothyroxine 50 mcg PO DAILYBB 12/25/17 04/14/20 History loperamide 2 mg PO DIRECTED PRN MDD 16 12/25/17 04/14/20 History MG/24 HOURS nitroglycerin 0.4 mg SUBLINGUAL DIRECTED PRN 12/25/17 04/14/20 History ondansetron 4 mg TRANSLINGUAL QID PRN 12/25/17 04/14/20 History rosuvastatin 10 mg PO HS 12/25/17 04/14/20 History warfarin 1 mg PO 5XWK 12/25/17 04/14/20 History betamethasone dipropionate 1 applic TOPICAL BID PRN 01/02/18 04/14/20 History diphenhydramine-zinc acetate 1 applic TOPICAL QID PRN 01/02/18 04/14/20 History acetaminophen [Tylenol] 650 mg PO Q6H PRN 08/21/18 04/14/20 History amiodarone 200 mg PO DAILY 08/21/18 04/14/20 History hydroxyzine HCl 25 mg PO Q6 PRN 08/21/18 04/14/20 History ropinirole 1 mg PO HS PRN 08/21/18 04/14/20 History Vitron-C 1 tab PO DAILY 05/31/19 04/14/20 History cholecalciferol (vitamin D3) 50 mcg PO DAILY 05/31/19 04/14/20 History [Vitamin D3] escitalopram oxalate 5 mg PO DAILY 05/31/19 04/14/20 History metoprolol succinate 25 mg PO DAILY 05/31/19 04/14/20 History ropinirole 0.5 mg PO TID PRN 05/31/19 04/14/20 History warfarin 2 mg PO 2XWK 05/31/19 04/14/20 History Past Med/Surg History Medical History (Updated 04/14/20 @ 20:00 by Jean Carlos Palumbo MD) Atrial fibrillation Chronic diastolic CHF (congestive heart failure) CKD (chronic kidney disease), stage III Diverticular disease of colon Dyslipidemia HTN (hypertension) HTN (hypertension) Hypothyroidism Pacemaker RLS (restless legs syndrome) Rosacea SVT (supraventricular tachycardia) Tachy-enid syndrome Surgical History History of carpal tunnel surgery History of cataract surgery History of colon resection History of hysterectomy History of tonsillectomy and adenoidectomy History of total right knee replacement S/P laparoscopic-assisted sigmoidectomy S/P ELISHA (total abdominal hysterectomy) Family History Other No pertinent family history Social History Smoking Status: Never smoker Second Hand Exposure: No; Do You Dip or Chew Tobacco: No; Tobacco Cessation Education Requested by Patient: No Hx Alcohol Use: No Hx Substance Use: No Preferred Language: Turkmen Communication Ability: Effective Visual Impairment: No Limitations 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 Beliefs That Will Affect Care: None marital status: / Current Living Situation: Family Current Living Situation Comment: LIVES WITH DAUGHTER JASON Other Information That Helps Us Care for You: No Feels Safe at Home: Yes Safety Concerns: Feels Safe At This Time Assistive Devices: Cane, Denture - Upper, Denture - Lower, Glasses, Hearing Aid - Bilateral and Walker Review of Systems Review of Systems: As per HPI, all 10 systems reviewed, all other ROS negative Physical Exam Physical Exam: GENERAL: Slightly uncomfortable and anxious, pleasant, no respiratory distress SKIN: Pallor , warm HEENT: Bespectacled, pale palpebral conjunctivae, no ptosis, dry buccal mucosa, occipital tenderness NECK : Supple, short neck, no tenderness CHEST : Decreased breath sounds, no tenderness HEART : RRR, no obvious murmurs ABDOMEN: Some distention, nontender EXTREMITIES : Minimal LE swelling, no LE tenderness, no other conspicuous deformities noted NEUROLOGIC : Coherent, no facial asymmetry, no other gross focality Results & Data Results & Data ([facility]) Vital Signs (Past 12 Hours) Vital Signs Temp Pulse Pulse Resp BP BP Pulse Ox 04/14/20 20:36 62 20 165/69 H 97 04/14/20 19:36 61 20 122/69 97 04/14/20 19:08 65 20 165/73 H 98 04/14/20 18:58 36.9 C 80 18 172/89 H 98 Laboratory Results Laboratory Results WBC 7.38 K/uL (4.8-10.8) 04/14/20 19:05 RBC 3.85 M/uL (4.2-5.4) L 04/14/20 19:05 Hgb 11.8 g/dL (12.0-16.0) L 04/14/20 19:05 Hct 35.6 % (37-47) L 04/14/20 19:05 MCV 92.5 fL (80-100) 04/14/20 19:05 MCH 30.6 pg (25-34) 04/14/20 19:05 MCHC 33.1 g/dL (32-36) 04/14/20 19:05 RDW Std Deviation 50.5 fL (36.4-46.3) H 04/14/20 19:05 RDW Coeff of Mino 14.9 % (11.5-14.5) H 04/14/20 19:05 Plt Count 221 K/uL (130-400) 04/14/20 19:05 MPV 11.1 fL (7.4-10.4) H 04/14/20 19:05 Immature Gran % (Auto) 0.3 % 04/14/20 19:05 Neut % (Auto) 66.6 % 04/14/20 19:05 Lymph % (Auto) 22.2 % 04/14/20 19:05 Curry % (Auto) 9.2 % 04/14/20 19:05 Eos % (Auto) 1.4 % 04/14/20 19:05 Baso % (Auto) 0.3 % 04/14/20 19:05 Neut # (Auto) 4.92 K/uL (1.4-6.5) 04/14/20 19:05 Lymph # (Auto) 1.64 K/uL (1.2-3.4) 04/14/20 19:05 Curry # (Auto) 0.68 K/uL (0.11-0.59) H 04/14/20 19:05 Eos # (Auto) 0.10 K/uL (0-0.5) 04/14/20 19:05 Baso # (Auto) 0.02 K/uL (0-0.2) 04/14/20 19:05 Immature Gran # (Auto) 0.02 K/uL (0.00-0.02) 04/14/20 19:05 PT 18.7 Seconds (9.0-12.0) H 04/14/20 19:05 INR 1.9 (0.9-1.1) H 04/14/20 19:05 Sodium 137 mmol/L (136-145) 04/14/20 19:05 Potassium 4.1 mmol/L (3.5-5.1) 04/14/20 19:05 Chloride 103 mmol/L (98-107) 04/14/20 19:05 Carbon Dioxide 22 mmol/L (21-32) 04/14/20 19:05 Anion Gap 11.0 (3-11) 04/14/20 19:05 BUN 29 mg/dl (7-18) H 04/14/20 19:05 Creatinine 1.76 mg/dl (0.6-1.2) H 04/14/20 19:05 Est Cr Clr Drug Dosing 18.5 ml/min 04/14/20 19:05 Est GFR ( Amer) 29.2 04/14/20 19:05 Est GFR (Non-Af Amer) 25.2 04/14/20 19:05 BUN/Creatinine Ratio 16.5 (10-20) 04/14/20 19:05 Glucose 99 mg/dl (70-99) 04/14/20 19:05 POC Glucose 111 mg/dl (70-99) H 04/14/20 18:56 Calcium 8.7 mg/dl (8.5-10.1) 04/14/20 19:05 Magnesium 2.4 mg/dl (1.8-2.4) 04/14/20 19:05 Total Bilirubin 0.6 mg/dl (0.2-1) 04/14/20 19:05 AST 51 U/L (15-37) H 04/14/20 19:05 ALT 55 U/L (12-78) 04/14/20 19:05 Alkaline Phosphatase 98 U/L (45-117) 04/14/20 19:05 Troponin I < 0.015 ng/ml (0-0.045) 04/14/20 19:05 Total Protein 7.3 gm/dl (6.4-8.2) 04/14/20 19:05 Albumin 3.5 gm/dl (3.4-5.0) 04/14/20 19:05 Globulin 3.8 gm/dl (2.5-4.0) 04/14/20 19:05 Albumin/Globulin Ratio 0.9 (0.9-2) 04/14/20 19:05 TSH 3.040 uIu/ml (0.300-4.500) 04/14/20 19:05 COVID-19 Eval Order Covid19 [facility]Now [facility] 04/14/20 19:10 SARS-CoV-2, RNA, NAAT NEGATIVE (NEGATIVE) 04/14/20 19:[address] head: No acute intracranial findings CT cervical spine: No evidence of acute fracture or traumatic subluxation. Chest x-ray as per my interpretation atelectasis EKG as per my interpretation : rate 65, paced rhythm (1) Syncope Syncope type: unspecified Qualified Code(s): R55 - Syncope and collapse
[2020-04-14 21:53] LABS: Appearance Urine Clear (Clear); Bacteria Urine Automated Negative (Negative); Bilirubin Urine Negative (Negative); Blood Urine Negative (Negative); Color Urine Yellow; Glucose Urine UA Negative (Negative); Ketones Urine Negative (Negative); Leukocyte Esterase Urine 2+ (Negative); Nitrite Urine Negative (Negative); Protein Urine Negative (Negative); RBC Urine Automated 0-4 /hpf (0-4); Specific Gravity Urine 1.008 (1.000-1.030); Urobilinogen Urine Negative (Negative); pH Urine 6.5 (4.5-7.5)
[2020-04-14] MEDS ORDERED: NITROGLYCERIN SL 0.4 MG/TAB TAB SL PRN ×2 (22:12)
[2020-04-14] MEDS ORDERED: ACETAMINOPHEN 325 MG TAB PO PRN (22:12)
[2020-04-14] MEDS ORDERED: PROMETHAZINE HCL 6.25 MG in SODIUM CHLORIDE 0.9% 50 ML IV PRN (22:12)
[2020-04-14] MEDS ORDERED: rOPINIRole HCL 1 MG TABLET PO PRN (22:12)
[2020-04-14] MEDS ORDERED: FAMOTIDINE 20 MG TAB PO PRN (22:12)
[2020-04-14] MEDS ORDERED: rOPINIRole HCL 0.25 MG TABLET PO PRN (22:12)
[2020-04-14] MEDS ORDERED: SODIUM CHLORIDE 0.9% 1000ML 1,000 ML IV ONE (22:30)
[2020-04-14] MEDS ORDERED: WARFARIN SOD 5 MG TAB PO ONE (22:30)
[2020-04-14] MEDS: ACETAMINOPHEN 325 MG TAB PO PRN (22:56)
[2020-04-14] MEDS: ROSUVASTATIN CALCIUM 10 MG TAB PO SCH (22:56)
[2020-04-15] MEDS: amLODIPine BESYLATE 5 MG TAB PO SCH ×2 (00:33→20:40)
[2020-04-15] MEDS: LEVOTHYROXINE SODIUM 50 MCG TABLET PO SCH (06:08)
[2020-04-15 06:52] LABS: Basophils # (auto) 0.01 K/uL (0-0.2); Basophils % (auto) 0.1 %; Eosinophils # (auto) 0.18 K/uL (0-0.5); Eosinophils % (auto) 2.2 %; Hematocrit (blood only) 34.9 % (37-47); Hemoglobin 11.4 g/dL (12.0-16.0); Immature Granulocytes # (auto) 0.02 K/uL (0.00-0.02); Immature Granulocytes % (auto) 0.2 %; Lymphocytes # (auto) 1.51 K/uL (1.2-3.4); Lymphocytes % (auto) 18.7 %; Mean Corpuscular Hemoglobin 30.6 pg (25-34); Mean Corpuscular Hgb Conc 32.7 g/dL (32-36); Mean Corpuscular Volume 93.6 fL (80-100); Mean Platelet Volume 11.1 fL (7.4-10.4); Monocytes # (auto) 0.89 K/uL (0.11-0.59); Neutrophils # (auto) 5.47 K/uL (1.4-6.5); Neutrophils % (auto) 67.8 %; Platelet Count 208 K/uL (130-400); RDW Standard Deviation 51.1 fL (36.4-46.3); Red Blood Count 3.73 M/uL (4.2-5.4); White Blood Count 8.08 K/uL (4.8-10.8)
[2020-04-15 06:59] LABS: INR 1.8 (0.9-1.1); Prothrombin Time 17.8 Seconds (9.0-12.0)
[2020-04-15 07:19] LABS: BUN Creatinine Ratio 14.5 (10-20); Calcium 8.6 mg/dl (8.5-10.1); Creatinine Clr Calc Pharmacy 21.5 ml/min; Est GFR (African American) 38.8; Est GFR (Non-African American) 33.5; Potassium 3.9 mmol/L (3.5-5.1)
--- NOTE | 2020-04-15 07:43 | XRay Report ---
XR chest 1V portable HISTORY: syncope COMPARISON: Chest 06/02/2019. FINDINGS: Rotated study. No pleural effusions. No pneumothorax. Left-sided dual-chamber pacemaker. Ca rdiac silhouette remains mildly enlarged. No new focal lung consolidations to suggest pneumonia. No e vidence for bone edema. IMPRESSION: No significant change compared to the prior study. No acute process. ACT 112: Negative or not required by law. Electronically signed by: Benson Self M.D. 04/15/2020 7:42 AM
[2020-04-15] MEDS: oxyCODONE HCL IR 5 MG TAB (IMMEDIATE RELEASE) PO PRN (08:07)
[2020-04-15] MEDS: ESCITALOPRAM OXALATE 10 MG TAB PO SCH (08:08)
[2020-04-15] MEDS: METOPROLOL SUCC 25MG EXT REL TAB PO SCH (08:08)
[2020-04-15] MEDS: AMIODARONE 200 MG TAB PO SCH (08:09)
[2020-04-15] MEDS ORDERED: [UNRECOGNIZED DRUG - OTHER] PO SCH (09:00)
--- NOTE | 2020-04-15 13:21 | Neurology Consultation ---
Date of Consultation April 15, 2020 Assessment & Plan (1) Syncope: 1. does not sound like seizure event 2. EEG- if not already ordered 3. orthostatics - will need adjustment in medications 4. INR was subtherapeutic on arrival 5. cardiology for any medication adjustments 6. ropinirole may need to be stopped or decreased can cause dizziness and hypotension 7. if restless legs still an issues may need to try gabapentin as alterative but can be discussed as outpatient Present on Admission?: Yes (2) HTN (hypertension): 1. afib and hypotension will need medication adjustment but need to consider patients age. Present on Admission?: Yes Supervising Physician Co-Signing Physician Notes I have seen and discussed above patient with Dr Gracia Garcia, neurology. Patient seen and examined with Gracia Michaud history reviewed. Reports of CT of the head carotid ultrasound reviewed. Prior CTA of head and neck reviewed. This patient had a fall while standing apparently and hit the table and fell to the floor. Striking her head. She does not know if there was a loss of con sciousness but it was it was brief she was not disoriented and had a headache. Upon gathering herself there was no focal neurologic deficit. EMT records indicate that she had multiple episodes while they were there lasting a few seconds. They did not note seizure activity. And I assume she was laying down when that was occurring. I do not know that definitively. On exam she has a bump on the back of her head. No battles or raccoon sign. She is awake and alert a reasonably good historian she is in some pain in left hip. There is no dysarthria face is symmetric strength is symmetric in the upper and lowers. Legs are noted notably restless Recurrent syncope. Prior work-up has been unremarkable plan repeat EEG consider an ambulatory EEG Unclear to this examiner whether most of these spells occur with standing although the patient reports that she cannot stand for very long because she will go down. This is speaks of potential orthostasis. No dysrhythmia has was noted on her pacer interrogation. I would recommend checking orthostatics. I would also substitute gradually gabapentin for ropinirole. Ropinirole can cause sudden falling asleep and certainly can cause orthostatic hypotension. I would probably decrease the ropinirole to twice a day for several days and then stop it and start gabapentin 100 mg once a day for 3 days then twice a day for 3 days and perhaps 3 times a day increasing as tolerated. The patient indicates that she is never taken that before. History of Present Illness Reason for Consultation: recurrent syncope Requesting Physician: Jamila Turcios MD Attending Physician: Jamila Turcios MD History of Present Illness Leslie is an 89 year old female with PMH HTN, UTI, RUE weakness, anemia, syncope, CHF, afib, SVT, pacemaker who was at the dinner table when she had an episode of syncope. When EMS arrived she had another episode and then another one in the ambulance. She had fallen and struck the back of her head. She does take Coumadin does have a known history of A. fib tachybradycardia syndrome SVT and a pacemaker. She follows with Dr Estevez in cardiology and had an appointment with Jaye Emanuel by telephone on 06/20/2019. She remembers standing and a big crash and that is the last she remembers. She is having alot of hip pain but XRAY of hip showed no fracture of dislocations. +left hip pain Allergies Allergy/AdvReac Type Severity Reaction Status Date / Time ciprofloxacin Allergy Intermediate RASH Verified 04/14/20 20:16 Sulfa (Sulfonamide Allergy Intermediate HIVES, RASH Verified 04/14/20 20:16 Antibiotics) adhesive Allergy Unknown ADHESIVE Verified 04/14/20 20:16 TAPE Cipro Allergy Unknown RASH Verified 10/25/17 05:26 estrogens, conjugated Allergy Unknown SEVERE Verified 04/14/20 20:16 RASH, PAINFUL FROM VAGINAL CREAM tetanus toxoid, adsorbed Allergy Unknown UNKNOWN Verified 04/14/20 20:16 Home Medications Medication Instructions Recorded Confirmed Type acidophilus-pectin, citrus 1 cap PO DAILY 12/25/17 04/14/20 History [Acidophilus Probiotic] digoxin 0.125 mg PO 3XWK 12/25/17 04/14/20 History famotidine 20 mg PO BID PRN 12/25/17 04/14/20 History levothyroxine 50 mcg PO DAILYBB 12/25/17 04/14/20 History loperamide 2 mg PO DIRECTED PRN MDD 16 12/25/17 04/14/20 History MG/24 HOURS nitroglycerin 0.4 mg SUBLINGUAL DIRECTED PRN 12/25/17 04/14/20 History ondansetron 4 mg TRANSLINGUAL QID PRN 12/25/17 04/14/20 History rosuvastatin 10 mg PO HS 12/25/17 04/14/20 History warfarin 1 mg PO 5XWK 12/25/17 04/14/20 History betamethasone dipropionate 1 applic TOPICAL BID PRN 01/02/18 04/14/20 History diphenhydramine-zinc acetate 1 applic TOPICAL QID PRN 01/02/18 04/14/20 History acetaminophen [Tylenol] 650 mg PO Q6H PRN 08/21/18 04/14/20 History amiodarone 200 mg PO DAILY 08/21/18 04/14/20 History hydroxyzine HCl 25 mg PO Q6 PRN 08/21/18 04/14/20 History ropinirole 1 mg PO HS PRN 08/21/18 04/14/20 History Vitron-C 1 tab PO DAILY 05/31/19 04/14/20 History cholecalciferol (vitamin D3) 50 mcg PO DAILY 05/31/19 04/14/20 History [Vitamin D3] escitalopram oxalate 5 mg PO DAILY 05/31/19 04/14/20 History metoprolol succinate 25 mg PO DAILY 05/31/19 04/14/20 History ropinirole 0.5 mg PO TID PRN 05/31/19 04/14/20 History warfarin 2 mg PO 2XWK 05/31/19 04/14/20 History Patient History Medical History (Updated 04/14/20 @ 20:00 by Jean Carlos Palumbo MD) Atrial fibrillation Chronic diastolic CHF (congestive heart failure) CKD (chronic kidney disease), stage III Diverticular disease of colon Dyslipidemia HTN (hypertension) HTN (hypertension) Hypothyroidism Pacemaker RLS (restless legs syndrome) Rosacea SVT (supraventricular tachycardia) Tachy-enid syndrome Surgical History History of carpal tunnel surgery History of cataract surgery History of colon resection History of hysterectomy History of tonsillectomy and adenoidectomy History of total right knee replacement S/P laparoscopic-assisted sigmoidectomy S/P ELISHA (total abdominal hysterectomy) Family History Other No pertinent family history Social History Smoking Status: Never smoker Second Hand Exposure: No; Do You Dip or Chew Tobacco: No; Tobacco Cessation Education Requested by Patient: No Hx Alcohol Use: No Hx Substance Use: No Preferred Language: Prydeinig Communication Ability: Effective Visual Impairment: No Limitations 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 Beliefs That Will Affect Care: None marital status: / Current Living Situation: Family Current Living Situation Comment: LIVES WITH DAUGHTER HERNANDO Other Information That Helps Us Care for You: No Feels Safe at Home: Yes Safety Concerns: Feels Safe At This Time Assistive Devices: Cane, Denture - Upper, Denture - Lower, Glasses, Hearing Aid - Bilateral and Walker Review of Systems Review of Systems: All systems reviewed & are unremarkable except as noted in HPI & below Physical Exam Physical Exam: Physical Exam: Constitutional: appearance thin frail Ears, Nose, Mouth and Throat: mucous membranes moist, no injection and skin normal, eyes normal Cardiovascular: irregular Respiratory: course breath sounds Musculoskeletal: no peripheral edema Skin: bruising on left hip Eyes: extraocular muscles intact (EOMI) and pupils equal, round and reactive to light (PERRL) NEUROLOGIC EXAMINATION: Mental status: Alert and interactive Oriented Success lives in [place], 2020, President Santos Oriented to person Speech fluent with no evidence of aphasia Cranial Nerves smile eye brow raise symmetric Reflexes: Deep tendon reflexes were symmetrical and graded 2/5. 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 5/5 bilateral unable to assess LE Results & Data ([facility]) Vital Signs (Past 12 Hours) Vital Signs Temp Pulse Resp BP Pulse Ox 04/15/20 12:01 36.8 C 62 19 153/76 H 95 04/15/20 07:46 36.9 C 64 19 156/79 H 96 04/15/20 03:12 36.4 C L 62 16 127/65 97 Laboratory Results Abnormal lab results 04/14/20 04/14/20 04/14/20 Range/Units 18:56 19:05 19:05 RBC 3.85 L (4.2-5.4) M/uL Hgb 11.8 L (12.0-16.0) g/dL Hct 35.6 L (37-47) % RDW Std Deviation 50.5 H (36.4-46.3) fL RDW Coeff of Mino 14.9 H (11.5-14.5) % MPV 11.1 H (7.4-10.4) fL Evans # (Auto) 0.68 H (0.11-0.59) K/uL PT 18.7 H (9.0-12.0) Seconds INR 1.9 H (0.9-1.1) Chloride (98-107) mmol/L BUN (7-18) mg/dl Creatinine (0.6-1.2) mg/dl POC Glucose 111 H (70-99) mg/dl AST (15-37) U/L Ur Leukocyte Esterase (Negative) Urine WBC (Auto) (0-5) /hpf U Epithel Cells (Auto) (0-5) /lpf 04/14/20 04/14/20 04/15/20 Range/Units 19:05 21:13 06:39 RBC 3.73 L (4.2-5.4) M/uL Hgb 11.4 L (12.0-16.0) g/dL Hct 34.9 L (37-47) % RDW Std Deviation 51.1 H (36.4-46.3) fL RDW Coeff of Mino 15.0 H (11.5-14.5) % MPV 11.1 H (7.4-10.4) fL Evans # (Auto) 0.89 H (0.11-0.59) K/uL PT (9.0-12.0) Seconds INR (0.9-1.1) Chloride (98-107) mmol/L BUN 29 H (7-18) mg/dl Creatinine 1.76 H (0.6-1.2) mg/dl POC Glucose (70-99) mg/dl AST 51 H (15-37) U/L Ur Leukocyte Esterase 2+ H (Negative) Urine WBC (Auto) 10-30 H (0-5) /hpf U Epithel Cells (Auto) 10-20 H (0-5) /lpf 04/15/20 04/15/20 Range/Units 06:39 06:39 RBC (4.2-5.4) M/uL Hgb (12.0-16.0) g/dL Hct (37-47) % RDW Std Deviation (36.4-46.3) fL RDW Coeff of Mino (11.5-14.5) % MPV (7.4-10.4) fL Evans # (Auto) (0.11-0.59) K/uL PT 17.8 H (9.0-12.0) Seconds INR 1.8 H (0.9-1.1) Chloride 108 H (98-107) mmol/L BUN 20 H (7-18) mg/dl Creatinine 1.39 H D (0.6-1.2) mg/dl POC Glucose (70-99) mg/dl AST (15-37) U/L Ur Leukocyte Esterase (Negative) Urine WBC (Auto) (0-5) /hpf U Epithel Cells (Auto) (0-5) /lpf Diagnostic Findings CT c spine- No evidence of acute fracture or traumatic subluxation. CT head- no acute abnormalites carotid doppler- 50-69% stenosis left internal carotid artery No evidence of hemodynamically significant right internal carotid artery stenosis. Patent bilateral vertebral arteries (1) Syncope Syncope type: unspecified Qualified Code(s): R55 - Syncope and collapse
--- NOTE | 2020-04-15 13:50 | Ultrasound Report ---
ULTRASOUND OF THE CAROTID ARTERIES CLINICAL HISTORY: recurrent syncope COMPARISON STUDY: CT angiography dated May 2019 TECHNIQUE: Real-time, grayscale, and color Doppler sonography of the carotid arteries was performed. Imaging reviewed in the transverse and longitudinal planes. NASCET criteria was utilized for stenosis calcification. FINDINGS: There is moderate atherosclerotic plaque present left proximal ICA. The peak systolic velocity within the right internal carotid artery is 98 cm/sec. The systolic velocity ratio of right internal to common carotid artery is 1.5. The peak systolic velocity within the left internal carotid artery is 147 cm/sec. The systolic velocity ratio left internal to common carotid artery is 1.8. Antegrade flow is seen in the vertebral arteries. The external carotid arteries are patent. Blood pressure in the right arm measured 153 mm/Hg. Blood pressure in the left arm measured 156 mm/H g. IMPRESSION: 1. 50-69% stenosis left internal carotid artery 2. No evidence of hemodynamically significant right internal carotid artery stenosis. 3. Patent bilateral vertebral arteries ACT 112: Negative or not required by law. Electronically signed by: Brain Crocker M.D. 04/15/2020 1:49 PM
--- NOTE | 2020-04-15 15:57 | XRay Report ---
LEFT HIP 2 VIEWS HISTORY: left hip pain COMPARISON: None. FINDINGS: There is no fracture or dislocation. Soft tissues are unremarkable. No radiopaque foreign b odies. The visualized pelvic bones are intact. The bones are osteopenic. Mild cartilage space narrowi ng and tiny marginal osteophytes within the left hip consistent with degenerative change. IMPRESSION: 1. No fracture or dislocation within the left hip. 2. Mild osteoarthritis. ACT 112: Negative or not required by law. Electronically signed by: Benson Self M.D. 04/15/2020 3:56 PM
[2020-04-15] MEDS ORDERED: DIGOXIN 0.125 MG TAB PO SCH (16:00)
--- NOTE | 2020-04-15 17:05 | Hospitalist Progress Note ---
Date of Service April 15, 2020 Assessment & Plan (1) Syncope: Present on admission with recurrent syncope Possible related to orthostatic hypotension vs vasovagal Doubt if it is seizure CT head showed no acute intracranial findings Doppler u/s showed 50-69% stenosis left internal carotid artery. No evidence of hemodynamically significant right internal carotid artery stenosis. Neuro on board Orthostatic was positive Ropinirole may need to be stopped or decreased can cause dizziness and hypotension Case discussed with Neuro that recommended to taper the Requip Will continue monitor closely S/P Fall Left Hip pain Due to syncope episode CT cervical spine showed no evidence of acute fracture or traumatic subluxation. Hip Xray showed no fracture or dislocation within the left hip. Mild osteoarthritis. Continue pain control Fall precaution Chronic diastolic heart failure Last ECHO on 2019 with EF 55-60% Continue metoprolol Will monitor for volume overload CHASITY on CKD stage 3 Creatinine on admission 1.7 Creatinine 1.3 today Continue monitor BMP Tachy-Steven syndrome SSS s/p pacemaker Pacemaker interrogation - working properly Continue Metoprolol and Digoxin Continue coumadin, INR 1.8 Hypothyroidism Continue levothyroxine DVT prophylaxis Coumadin INR goal between 2 and 3 Full code Patient requests that her daughter be updated by providers. Ms. Jason Keith, contact #[phone]. Admission and Anticipated Discharge Date Admission Date: April 14, 2020 Subjective Pt was seen and examined for follow of syncope Lying in bed with no distress Pt said that she is having a lot of pain in left hip Pain is worst when standing or walking on her feet Denies any chest pain, palpitation, dizziness and fever Review of Systems Review of Systems: All systems reviewed & are unremarkable except as noted in Subjective Physical Exam Physical Exam: General- No acute distress Head- atraumatic Eyes- PERRL, EOMI, ENT- oropharynx clear Neck- supple, no JVD Lungs- clear to auscultation Heart- no murmur Abdomen- normal bowel sounds, soft, nontender Extremities- no calf tenderness Neuro- alert, oriented x 3; PERRL, EOMI; no facial palsy; no dysarthria Skin- warm & dry Results & Data Results & Data ([facility]) Vital Signs (Past 12 Hours) Vital Signs Temp Pulse Pulse Resp BP Pulse Ox 04/15/20 15:55 60 04/15/20 12:01 36.8 C 62 19 153/76 H 95 04/15/20 07:46 36.9 C 64 19 156/79 H 96 (1) Syncope Syncope type: unspecified Qualified Code(s): R55 - Syncope and collapse
[2020-04-15] MEDS ORDERED: TRIAMCINOLONE ACET 0.025% CR 15 GM TUBE EXT PRN (19:23)
[2020-04-15] MEDS ORDERED: LIDOCAINE 4% CREAM 15 GM TUBE EXT PRN (20:03)
[2020-04-15] MEDS ORDERED: WARFARIN SOD 2 MG TAB PO ONE (20:15)
[2020-04-15] MEDS: rOPINIRole HCL 0.25 MG TABLET PO PRN (20:39)
[2020-04-15] MEDS: ROSUVASTATIN CALCIUM 10 MG TAB PO SCH (20:40)
[2020-04-15] MEDS: ACETAMINOPHEN 325 MG TAB PO PRN (20:42)
--- NOTE | 2020-04-16 05:41 | Electrocardiogram Report ---
Test Reason : Blood Pressure : / mmHG Vent. Rate : 066 BPM Atrial Rate : 066 BPM P-R Int : 250 ms QRS Dur : 096 ms QT Int : 446 ms P-R-T Axes : 000 -54 051 degrees QTc Int : 467 ms Atrial-paced rhythm with prolonged AV conduction Left anterior fascicular block Abnormal ECG When compared with ECG of 31-MAY-2019 20:55, No significant change was found Confirmed by Francisco Dempsey ([id number]) on 04/16/2020 5:41:31 AM Referred By: REFERRED SELF Confirmed By:Francisco Dempsey
[2020-04-16] MEDS: LEVOTHYROXINE SODIUM 50 MCG TABLET PO SCH (06:30)
[2020-04-16] MEDS: AMIODARONE 200 MG TAB PO SCH (08:37)
[2020-04-16] MEDS: ESCITALOPRAM OXALATE 10 MG TAB PO SCH (08:37)
[2020-04-16] MEDS: METOPROLOL SUCC 25MG EXT REL TAB PO SCH (08:37)
[2020-04-16 09:43] LABS: Calcium 8.5 mg/dl (8.5-10.1); Creatinine Clr Calc Pharmacy 20.1 ml/min; Est GFR (African American) 35.7; Est GFR (Non-African American) 30.8; Potassium 3.8 mmol/L (3.5-5.1)
[2020-04-16 09:49] LABS: INR 3.1 (0.9-1.1); Prothrombin Time 28.7 Seconds (9.0-12.0)
[2020-04-16] MEDS: rOPINIRole HCL 0.25 MG TABLET PO PRN ×2 (11:17→20:01)
--- NOTE | 2020-04-16 15:43 | Neurology Progress Note ---
Date of Service April 16, 2020 Assessment & Plan (1) Syncope: 1. does not sound like seizure event 2. EEG- ordered today can be done tomorrow prior to discharge 3. orthostatics - will need adjustment in medications 4. INR was subtherapeutic on arrival 5. cardiology for any medication adjustments 6. ropinirole may need to be stopped or decreased can cause dizziness and hypotension 7. if restless legs still an issues may need to try gabapentin as alterative but can be discussed as outpatient 8. would start gabapentin 100 mg tonight 1/2 prior to bedtime in 1 week increase to 2 tab at bedtime x 7 days then 3 tabs if needed 9. decrease use of requip 1 mg hs to 0.5 mg hs. it is unclear how much she has been taking during the day. 10. follow up after discharge 4-6 weeks Gracia Michaud [facility] neurology (2) HTN (hypertension): 1. afib and hypotension will need medication adjustment but need to consider patients age. Admission and Anticipated Discharge Date Admission Date: April 14, 2020 Supervising Physician Co-Signing Physician Notes I have seen and discussed above patient with Dr Gracia Garcia, neurology. Patient seen and discussed with Gracia Michaud. The patient has not had any recurrent episodes. Recurrent syncope recommend EEG. A CTA was performed in 10 months ago which was noncontributory I do not think this needs to be repeated. MRI of the brain cannot be performed. Recommend as above the discontinuation of ropinirole and starting gabapentin. Ropinirole can cause significant orthostasis. Gracia Garcia MD Vicki Nelson is an 89 year old female with PMH HTN, UTI, RUE weakness, anemia, syncope, CHF, afib, SVT, pacemaker who was at the dinner table when she had an episode of syncope. When EMS arrived she had another episode and then another one in the ambulance. She had fallen and struck the back of her head. She does take Coumadin does have a known history of A. fib tachybradycardia syndrome SVT and a pacemaker. She follows with Dr Estevez in cardiology and had an appointment with Jaye Emanuel by telephone on 06/20/2019. She remembers standing and a big crash and that is the last she remembers. She is having alot of hip pain but XRAY of hip showed no fracture of dislocations. +left hip pain hip pain is better today and she is able to roll on left side and lay on back. Review of Systems Review of Systems: All systems reviewed & are unremarkable except as noted in HPI & below Physical Exam Physical Exam: Physical Exam: Constitutional: appearance thin frail Ears, Nose, Mouth and Throat: mucous membranes moist, no injection and skin normal, eyes normal Cardiovascular: irregular Respiratory: course breath sounds Musculoskeletal: no peripheral edema Skin: bruising on left hip Eyes: extraocular muscles intact (EOMI) and pupils equal, round and reactive to light (PERRL) NEUROLOGIC EXAMINATION: Mental status: Alert and interactive Oriented [place] lives in [place], 2020, President [place] Oriented to person Speech fluent with no evidence of aphasia Cranial Nerves smile eye brow raise symmetric Reflexes: Deep tendon reflexes were symmetrical and graded 2/5. 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
[2020-04-16] MEDS ORDERED: WARFARIN SOD 2 MG TAB PO SCH (16:00)
--- NOTE | 2020-04-16 18:30 | Hospitalist Progress Note ---
Date of Service April 16, 2020 Assessment & Plan (1) Syncope: Present on admission with recurrent syncope Possible related to orthostatic hypotension vs vasovagal Doubt if it is seizure CT head showed no acute intracranial findings Doppler u/s showed 50-69% stenosis left internal carotid artery. No evidence of hemodynamically significant right internal carotid artery stenosis. Neuro on board Orthostatic was positive Ropinirole may need to be stopped or decreased can cause dizziness and hypotension Case discussed with Neuro that recommended to slowly taper the Requip EEG order by neuro today - pending Will continue monitor closely S/P Fall Left Hip pain Due to syncope episode CT cervical spine showed no evidence of acute fracture or traumatic subluxation. Hip Xray showed no fracture or dislocation within the left hip. Mild osteoarthritis. Continue pain control Fall precaution RLS Pt has been on Requip for years Neuro recommended to slowly taper the requip and d/c gabapentin 100mg started for tonight Continue monitor Chronic diastolic heart failure Last ECHO on 2019 with EF 55-60% Continue metoprolol Will monitor for volume overload CHASITY on CKD stage 3 Creatinine on admission 1.7 Creatinine 1.4 today Continue monitor BMP Tachy-Steven syndrome SSS s/p pacemaker Pacemaker interrogation - working properly Continue Metoprolol and Digoxin Continue coumadin, INR 3.1 Hypothyroidism Continue levothyroxine DVT prophylaxis Coumadin INR goal between 2 and 3 Full code Patient requests that her daughter be updated by providers. Ms. Jason Keith, contact #[phone]. Admission and Anticipated Discharge Date Admission Date: April 14, 2020 Subjective Pt was seen and examined for follow up of syncope Lying in bed with no distress Pt said that her hip pain slightly improves She said that she did not sleep well last night and asking for more ativan Denies any chest pain, palpitation, dizziness and SOB Physical Exam Physical Exam: General- No acute distress Head- atraumatic Eyes- PERRL, EOMI, ENT- oropharynx clear Neck- supple, no JVD Lungs- clear to auscultation Heart- no murmur Abdomen- normal bowel sounds, soft, nontender Extremities- no calf tenderness Neuro- alert, oriented x 3; PERRL, EOMI; no facial palsy; no dysarthria Skin- warm & dry Results & Data Results & Data ([facility]) Vital Signs (Past 12 Hours) Vital Signs Temp Pulse Pulse Resp BP Pulse Ox 04/16/20 15:23 36.8 C 73 19 172/80 H 95 04/16/20 15:04 60 04/16/20 11:30 36.7 C 61 18 168/73 H 95 04/16/20 07:50 37.0 C 63 19 158/74 H 94 04/16/20 07:19 66 (1) Syncope Syncope type: unspecified Qualified Code(s): R55 - Syncope and collapse
[2020-04-16] MEDS: oxyCODONE HCL IR 5 MG TAB (IMMEDIATE RELEASE) PO PRN (19:58)
[2020-04-16] MEDS: amLODIPine BESYLATE 5 MG TAB PO SCH (19:59)
[2020-04-16] MEDS: ROSUVASTATIN CALCIUM 10 MG TAB PO SCH (19:59)
[2020-04-16] MEDS ORDERED: GABAPENTIN 100 MG CAP PO SCH (21:00)
[2020-04-17] MEDS: LEVOTHYROXINE SODIUM 50 MCG TABLET PO SCH (06:30)
[2020-04-17 07:16] LABS: INR 3.8 (0.9-1.1); Prothrombin Time 34.6 Seconds (9.0-12.0)
[2020-04-17 07:27] LABS: Calcium 8.9 mg/dl (8.5-10.1); Creatinine Clr Calc Pharmacy 18.5 ml/min; Est GFR (Non-African American) 31.1; Potassium 4.3 mmol/L (3.5-5.1)
[2020-04-17] MEDS: ESCITALOPRAM OXALATE 10 MG TAB PO SCH (08:05)
[2020-04-17] MEDS: AMIODARONE 200 MG TAB PO SCH (08:05)
[2020-04-17] MEDS: METOPROLOL SUCC 25MG EXT REL TAB PO SCH (08:05)
--- NOTE | 2020-04-17 10:17 | Electroencephalogram ---
EEG Procedure Note Date of Service April 17, 2020 Start / End Times Start Time: 06:03 End Time: 06:23 Referring Physician Gracia Michaud PA-C History An 89-year-old woman with a syncopal episode. EEG performed for evaluation of epileptiform activity. Home Medication List Medication Instructions Recorded Confirmed Type acidophilus-pectin, citrus 1 cap PO DAILY 12/25/17 04/14/20 History [Acidophilus Probiotic] digoxin 0.125 mg PO 3XWK 12/25/17 04/14/20 History famotidine 20 mg PO BID PRN 12/25/17 04/14/20 History levothyroxine 50 mcg PO DAILYBB 12/25/17 04/14/20 History loperamide 2 mg PO DIRECTED PRN MDD 16 12/25/17 04/14/20 History MG/24 HOURS nitroglycerin 0.4 mg SUBLINGUAL DIRECTED PRN 12/25/17 04/14/20 History ondansetron 4 mg TRANSLINGUAL QID PRN 12/25/17 04/14/20 History rosuvastatin 10 mg PO HS 12/25/17 04/14/20 History warfarin 1 mg PO 5XWK 12/25/17 04/14/20 History betamethasone dipropionate 1 applic TOPICAL BID PRN 01/02/18 04/14/20 History diphenhydramine-zinc acetate 1 applic TOPICAL QID PRN 01/02/18 04/14/20 History acetaminophen [Tylenol] 650 mg PO Q6H PRN 08/21/18 04/14/20 History amiodarone 200 mg PO DAILY 08/21/18 04/14/20 History hydroxyzine HCl 25 mg PO Q6 PRN 08/21/18 04/14/20 History ropinirole 1 mg PO HS PRN 08/21/18 04/14/20 History Vitron-C 1 tab PO DAILY 05/31/19 04/14/20 History cholecalciferol (vitamin D3) 50 mcg PO DAILY 05/31/19 04/14/20 History [Vitamin D3] escitalopram oxalate 5 mg PO DAILY 05/31/19 04/14/20 History metoprolol succinate 25 mg PO DAILY 05/31/19 04/14/20 History ropinirole 0.5 mg PO TID PRN 05/31/19 04/14/20 History warfarin 2 mg PO 2XWK 05/31/19 04/14/20 History Inpatient Medication List Acetaminophen (Acetaminophen 325 Mg Tab) 650 mg PO Q4H PRN PRN Reason: Pain or Fever Stop: 05/14/20 22:11 Last Admin: 04/15/20 20:42 Dose: 650 mg Documented by: [id number] Admin: 04/14/20 22:56 Dose: 650 mg Documented by: [id number] Amiodarone HCl (Amiodarone 200 Mg Tab) 200 mg PO DAILY [facility] Stop: 05/15/20 08:59 Last Admin: 04/17/20 08:05 Dose: 200 mg Documented by: [id number] Admin: 04/16/20 08:37 Dose: 200 mg Documented by: [id number] Admin: 04/15/20 08:09 Dose: 200 mg Documented by: [id number] Amlodipine Besylate (Amlodipine Besylate 5 Mg Tab) 2.5 mg PO [facility] Stop: 05/14/20 23:44 Last Admin: 04/16/20 19:59 Dose: 2.5 mg Documented by: [id number] Admin: 04/15/20 20:40 Dose: 2.5 mg Documented by: [id number] Admin: 04/15/20 00:33 Dose: 2.5 mg Documented by: [id number] Digoxin (Digoxin 0.125 Mg Tab) 0.125 mg PO MoWeFr@1600 [facility] Stop: 05/15/20 15:59 Last Admin: 04/15/20 15:55 Dose: 0.125 mg Documented by: [id number] Escitalopram Oxalate (Escitalopram Oxalate 10 Mg Tab) 5 mg PO DAILY [facility] Stop: 05/15/20 08:59 Last Admin: 04/17/20 08:05 Dose: 5 mg Documented by: [id number] Admin: 04/16/20 08:37 Dose: 5 mg Documented by: [id number] Admin: 04/15/20 08:08 Dose: 5 mg Documented by: [id number] Gabapentin (Gabapentin 100 Mg Cap) 100 mg PO [facility] Stop: 05/16/20 20:59 Last Admin: 04/16/20 20:02 Dose: 100 mg Documented by: [id number] Levothyroxine Sodium (Levothyroxine Sodium 50 Mcg Tablet) [facility] Stop: 05/15/20 06:29 Last Admin: 04/17/20 06:30 Dose: 50 mcg Documented by: [id number] Admin: 04/16/20 06:30 Dose: 50 mcg Documented by: [id number] Admin: 04/15/20 06:08 Dose: 50 mcg Documented by: [id number] Metoprolol Succinate (Metoprolol Succ 25mg Ext Rel Tab) 25 mg PO DAILY [facility] Stop: 05/15/20 08:59 Last Admin: 04/17/20 08:05 Dose: 25 mg Documented by: [id number] Admin: 04/16/20 08:37 Dose: 25 mg Documented by: [id number] Admin: 04/15/20 08:08 Dose: 25 mg Documented by: [id number] Oxycodone HCl (Oxycodone Hcl Ir 5 Mg Tab (Immediate Release)) 5 mg PO Q4H PRN PRN Reason: Pain Stop: 04/28/20 22:11 Last Admin: 04/16/20 19:58 Dose: 5 mg Documented by: [id number] Admin: 04/15/20 08:07 Dose: 5 mg Documented by: [id number] Ropinirole HCl (Ropinirole Hcl 0.25 Mg Tablet) 0.5 mg PO BID PRN PRN Reason: Restless Leg(S) Stop: 05/14/20 22:11 Last Admin: 04/16/20 20:01 Dose: 0.5 mg Documented by: [id number] Admin: 04/16/20 11:17 Dose: 0.5 mg Documented by: [id number] Admin: 04/15/20 20:39 Dose: 0.5 mg Documented by: [id number] Rosuvastatin Calcium (Rosuvastatin Calcium 10 Mg Tab) 10 mg PO HS [facility] Stop: 05/14/20 22:11 Last Admin: 04/16/20 19:59 Dose: 10 mg Documented by: [id number] Admin: 04/15/20 20:40 Dose: 10 mg Documented by: [id number] Admin: 04/14/20 22:56 Dose: 10 mg Documented by: [id number] Triamcinolone Acetonide (Triamcinolone Acet 0.025% Cr 15 Gm Tube) 1 appln EXT BID PRN PRN Reason: Affected Skin Folds Stop: 05/15/20 19:22 Last Admin: 04/15/20 20:43 Dose: 1 appln Documented by: [id number] Discontinued Medications Sodium Chloride (Nss) 500 mls @ 999 mls/hr IV .Q31M [facility] Stop: 04/14/20 19:30 Last Infusion: 04/14/20 20:45 Dose: 0 mls/hr Documented by: [id number] Admin: 04/14/20 19:58 Dose: 999 mls/hr Documented by: [id number] Sodium Chloride (Nss 1000ml) 500 mls @ 999 mls/hr IV .Q31M ONE Stop: 04/14/20 20:31 Last Infusion: 04/14/20 20:44 Dose: 0 mls/hr Documented by: [id number] Admin: 04/14/20 20:03 Dose: 999 mls/hr Documented by: [id number] Sodium Chloride (Nss 1000ml) 1,000 mls @ 60 mls/hr IV .B15H07C ONE Stop: 04/15/20 15:09 Last Infusion: 04/15/20 15:51 Dose: 0 mls/hr Documented by: [id number] Admin: 04/14/20 22:58 Dose: 60 mls/hr Documented by: [id number] Ropinirole HCl (Ropinirole Hcl 1 Mg Tablet) 1 mg PO HS PRN PRN Reason: Restless Leg(S) Stop: 05/14/20 22:11 Last Admin: 04/14/20 22:56 Dose: 1 mg Documented by: [id number] Ropinirole HCl (Ropinirole Hcl 0.25 Mg Tablet) 0.5 mg PO TID PRN PRN Reason: Restless Leg(S) Stop: 05/14/20 22:11 Last Admin: 04/15/20 08:09 Dose: 0.5 mg Documented by: [id number] Warfarin Sodium (Warfarin Sod 5 Mg Tab) 5 mg PO NOW ONE Stop: 04/14/20 22:31 Last Admin: 04/14/20 22:56 Dose: 5 mg Documented by: [id number] Warfarin Sodium (Warfarin Sod 2 Mg Tab) 2 mg PO ONE ONE Stop: 04/15/20 20:16 Last Admin: 04/15/20 20:39 Dose: 2 mg Documented by: [id number] Warfarin Sodium (Warfarin Sod 2 Mg Tab) 2 mg PO DAILY@1600 [facility] Stop: 05/16/20 15:59 Last Admin: 04/16/20 16:12 Dose: 2 mg Documented by: [id number] Description This is a 21 electrode EEG with a single channel dedicated to limited EKG. The electrodes were placed in accordance with the International 10-20 system. REPORT: At the onset of the EEG the patient is awake. The background is symmetric. The posterior dominant rhythm is 8-9 Hz. There is a normal anterior to posterior gradient with low amplitude faster activity in the frontal head regions. Drowsiness is characterized by increased theta activity, decreased myogenic artifact and reduced blink rate. There is intermittent electrode artifact from patient head movement. Photic stimulation does not induce any abnormalities. No stage 2 sleep transients are recorded. IMPRESSION: This is a normal awake and drowsy routine EEG. There is no evidence of focal slowing or epileptiform activity.
[2020-04-17 11:52] VITALS: BP 139/66; PULSE 71; TEMP 98.1; O2SAT 95
[2020-04-17] MEDS: oxyCODONE HCL IR 5 MG TAB (IMMEDIATE RELEASE) PO PRN (13:20)
--- NOTE | 2020-04-17 14:37 | Hospitalist Progress Note ---
Date of Service April 17, 2020 Assessment & Plan (1) Syncope: Presented on admission with recurrent syncope Possible related to orthostatic hypotension vs vasovagal Doubt if it is seizure CT head showed no acute intracranial findings Doppler u/s showed 50-69% stenosis left internal carotid artery. No evidence of hemodynamically significant right internal carotid artery stenosis. Neuro on board Orthostatic VS positive Ropinirole may need to be stopped or decreased can cause dizziness and hypotension Case discussed with Neuro that recommended to slowly taper the Requip EEG order by neuro today - no signs of epileptiform activity Will continue monitor closely Follow up w/ neurology in 4 weeks S/P Fall Left Hip pain Due to syncope episode CT cervical spine showed no evidence of acute fracture or traumatic subluxation. Hip Xray showed no fracture or dislocation within the left hip. Mild osteoarthritis. Continue pain control Fall precaution RLS Pt has been on Requip for years Neuro recommended to slowly taper the requip and d/c , now ordered as 0.5 mg BID PRN gabapentin 100mg HS started, plan to continue for 1 week then increase to 200 mg HS Continue monitor Follow up w/ PCP and neurology Chronic diastolic heart failure Last ECHO on 2019 with EF 55-60% Continue metoprolol Will monitor for volume overload CHASITY on CKD stage 3 Creatinine on admission 1.7 Creatinine 1.4 now Continue monitor BMP Tachy-Steven syndrome SSS s/p pacemaker Pacemaker interrogation - working properly Continue Metoprolol and Digoxin On coumadin, INR 3.1 Now INR supratherapeutic, will advise pt to hold coumadin today and tomorrow Check INR as outpt Hypothyroidism Continue levothyroxine DVT prophylaxis Coumadin INR goal between 2 and 3 Full code Patient requests that her daughter be updated by providers. Ms. Jason Keith, contact #[phone]. Admission and Anticipated Discharge Date Admission Date: April 16, 2020 Subjective Pt was seen and examined for follow up of syncope Lying in bed - has some distress d/t RLS, pt did not get any requip today yet, reports she has symptoms usually starting around 1pm Discussed if we should plan for discharge tomorrow but pt prefers to be discharged today Pt has been walking to the bathroom - has no more dizziness Denies any chest pain, palpitation, dizziness and SOB Review of Systems Review of Systems: All systems reviewed & are unremarkable except as noted in HPI & below Constitutional: no fever and no chills Respiratory: no cough and no dyspnea Cardiovascular: no chest pain and no palpitations Gastrointestinal: no abdominal pain, no nausea and no vomiting Physical Exam Physical Exam: General- No acute distress, but somewhat uncomfortable d/t RLS symptoms Head- atraumatic Eyes- PERRL, EOMI, ENT- oropharynx clear Neck- supple, no JVD Lungs- clear to auscultation Heart- no murmur Abdomen- normal bowel sounds, soft, nontender Extremities- no calf tenderness Neuro- alert, oriented x 3; PERRL, EOMI; no facial palsy; no dysarthria Skin- warm & dry Results & Data Results & Data ([facility]) Vital Signs (Past 12 Hours) Vital Signs Temp Pulse Resp BP BP Pulse Ox 04/17/20 11:52 36.7 C 71 19 139/66 95 04/17/20 07:35 36.6 C 63 18 137/67 94 04/17/20 03:25 36.4 C L 62 18 157/72 H 96 Laboratory Results 04/17/20 04/17/20 Range/Units 06:38 06:38 PT 34.6 H (9.0-12.0) Seconds INR 3.8 H (0.9-1.1) Sodium 136 (136-145) mmol/L Potassium 4.3 (3.5-5.1) mmol/L Chloride 105 (98-107) mmol/L Carbon Dioxide 28 (21-32) mmol/L Anion Gap 4.0 (3-11) BUN 19 H (7-18) mg/dl Creatinine 1.48 H (0.6-1.2) mg/dl Est Cr Clr Drug Dosing 18.5 ml/min Est GFR ( Amer) 36.0 Est GFR (Non-Af Amer) 31.1 BUN/Creatinine Ratio 13.0 (10-20) Glucose 91 (70-99) mg/dl Calcium 8.9 (8.5-10.1) mg/dl Medications Administered Current Inpatient Medications Acetaminophen (Acetaminophen 325 Mg Tab) 650 mg PO Q4H PRN PRN Reason: Pain or Fever Stop: 05/14/20 22:11 Last Admin: 04/15/20 20:42 Dose: 650 mg Documented by: Amiodarone HCl (Amiodarone 200 Mg Tab) 200 mg PO DAILY [facility] Stop: 05/15/20 08:59 Last Admin: 04/17/20 08:05 Dose: 200 mg Documented by: Amlodipine Besylate (Amlodipine Besylate 5 Mg Tab) 2.5 mg PO HS [facility] Stop: 05/14/20 23:44 Last Admin: 04/16/20 19:59 Dose: 2.5 mg Documented by: Digoxin (Digoxin 0.125 Mg Tab) 0.125 mg PO MoWeFr@1600 [facility] Stop: 05/15/20 15:59 Last Admin: 04/15/20 15:55 Dose: 0.125 mg Documented by: Escitalopram Oxalate (Escitalopram Oxalate 10 Mg Tab) 5 mg PO DAILY [facility] Stop: 05/15/20 08:59 Last Admin: 04/17/20 08:05 Dose: 5 mg Documented by: Famotidine (Famotidine 20 Mg Tab) 20 mg PO BID PRN PRN Reason: GASTRITIS Stop: 05/14/20 22:11 Gabapentin (Gabapentin 100 Mg Cap) 100 mg PO HS [facility] Stop: 05/16/20 20:59 Last Admin: 04/16/20 20:02 Dose: 100 mg Documented by: Promethazine HCl 6.25 mg/ (Sodium Chloride) 50.25 mls @ 201 mls/hr IV Q6H PRN PRN Reason: Nausea And Vomiting Stop: 05/14/20 22:11 Levothyroxine Sodium (Levothyroxine Sodium 50 Mcg Tablet) 50 mcg PO DAILYBB [facility] Stop: 05/15/20 06:29 Last Admin: 04/17/20 06:30 Dose: 50 mcg Documented by: Lidocaine (Lidocaine 4% Cream 15 Gm Tube) 1 appln EXT BID PRN PRN Reason: left hip pain Stop: 05/15/20 20:02 Metoprolol Succinate (Metoprolol Succ 25mg Ext Rel Tab) 25 mg PO DAILY [facility] Stop: 05/15/20 08:59 Last Admin: 04/17/20 08:05 Dose: 25 mg Documented by: Nitroglycerin (Nitroglycerin Sl 0.4 Mg/Tab Tab) 0.4 mg SL UD PRN PRN Reason: Chest Pain Stop: 05/14/20 22:11 Oxycodone HCl (Oxycodone Hcl Ir 5 Mg Tab (Immediate Release)) 5 mg PO Q4H PRN PRN Reason: Pain Stop: 04/28/20 22:11 Last Admin: 04/17/20 13:20 Dose: 5 mg Documented by: Ropinirole HCl (Ropinirole Hcl 0.25 Mg Tablet) 0.5 mg PO BID PRN PRN Reason: Restless Leg(S) Stop: 05/14/20 22:11 Last Admin: 04/16/20 20:01 Dose: 0.5 mg Documented by: Rosuvastatin Calcium (Rosuvastatin Calcium 10 Mg Tab) 10 mg PO HS [facility] Stop: 05/14/20 22:11 Last Admin: 04/16/20 19:59 Dose: 10 mg Documented by: Triamcinolone Acetonide (Triamcinolone Acet 0.025% Cr 15 Gm Tube) 1 appln EXT BID PRN PRN Reason: Affected Skin Folds Stop: 05/15/20 19:22 Last Admin: 04/15/20 20:43 Dose: 1 appln Documented by: Warfarin Sodium (Warfarin Sod 1 Mg Tab) 1 mg PO DAILY@1600 [facility] Stop: 05/17/20 15:59 (1) Syncope Syncope type: unspecified Qualified Code(s): R55 - Syncope and collapse
--- NOTE | 2020-04-17 14:42 | Discharge Summary ---
Date of Service April 17, 2020 Admission HPI Per Admitting Provider History obtained from the patient and records. Medical history significant for chronic diastolic heart failure EF 55-60%, TTE 2019), SSS sp PPM Coumadin, HTN, hyperlipidemia, hypothyroidism, CRI (baseline creatinine 1.6), hypothyroidism, chronic anemia (baseline hemoglobin 10), recurrent diverticulitis status post surgery. recurrent syncope (vasovagal versus nonepileptic seizures as per records) Last confinement May 2019 for recurrent syncope, strokelike symptoms, UTI. Patient evaluated by neurology during confinement. Syncopal event vasovagal versus nonepileptic seizures on review of inpatient/outpatient neurology notes. Outpatient EEG from last year was normal as per documentation. Patient was at the dinner table with her daughter when she had recurrence of syncopal event causing her to fall backwards resulting in the back of her head hitting the door. Was just out for a few moments. Patient woke up with achy posterior headache, patient denies chest pain, S OB. No witness grand mal seizure, incontinence. Recurrent syncopal episodes upon EMS arrival and in the ambulance as per documentation. Patient brought to the ER for evaluation. MEDICAL HISTORY: As above. SURGERIES: She has had pacemaker placement, carpal tunnel surgery, cataract surgery, hysterectomy, partial colectomy. Family History : HTN PERSONAL AND SOCIAL HISTORY: Nonsmoker. No chronic intake of alcoholic beverages. 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 Lives with the daughter. Admission Exam Per Admitting Provider GENERAL: Slightly uncomfortable and anxious, pleasant, no respiratory distress SKIN: Pallor , warm HEENT: Bespectacled, pale palpebral conjunctivae, no ptosis, dry buccal mucosa, occipital tenderness NECK : Supple, short neck, no tenderness CHEST : Decreased breath sounds, no tenderness HEART : RRR, no obvious murmurs ABDOMEN: Some distention, nontender EXTREMITIES : Minimal LE swelling, no LE tenderness, no other conspicuous deformities noted NEUROLOGIC : Coherent, no facial asymmetry, no other gross focality Principal Diagnosis Syncope, orthostatic hypotension Discharge Exam General- No acute distress, but somewhat uncomfortable d/t RLS symptoms Head- atraumatic Eyes- PERRL, EOMI, ENT- oropharynx clear Neck- supple, no JVD Lungs- clear to auscultation Heart- no murmur Abdomen- normal bowel sounds, soft, nontender Extremities- no calf tenderness Neuro- alert, oriented x 3; PERRL, EOMI; no facial palsy; no dysarthria Skin- warm & dry Discharge Data Allergies Allergy/AdvReac Type Severity Reaction Status Date / Time ciprofloxacin Allergy Intermediate RASH Verified 04/14/20 20:16 Sulfa (Sulfonamide Allergy Intermediate HIVES, RASH Verified 04/14/20 20:16 Antibiotics) adhesive Allergy Unknown ADHESIVE Verified 04/14/20 20:16 TAPE Cipro Allergy Unknown RASH Verified 10/25/17 05:26 estrogens, conjugated Allergy Unknown SEVERE Verified 04/14/20 20:16 RASH, PAINFUL FROM VAGINAL CREAM tetanus toxoid, adsorbed Allergy Unknown UNKNOWN Verified 04/14/20 20:16 Consultations 04/14/20 19:56 ED Decision to Admit Stat 04/15/20 11:12 Consult Neurology Routine Ordered Studies 04/14/20 18:55 CT cervical spine wo con Stat IMPRESSION: No evidence of acute fracture or traumatic subluxation. CT head/brain wo con Stat IMPRESSION: No acute intracranial findings 04/15/20 11:14 US carotid doppler BI Routine IMPRESSION: 1. 50-69% stenosis left internal carotid artery 2. No evidence of hemodynamically significant right internal carotid artery stenosis. 3. Patent bilateral vertebral arteries Hospital Course (1) Syncope: Presented on admission with recurrent syncope Possible related to orthostatic hypotension vs vasovagal Doubt if it is seizure CT head showed no acute intracranial findings Doppler u/s showed 50-69% stenosis left internal carotid artery. No evidence of hemodynamically significant right internal carotid artery stenosis. Neuro on board Orthostatic VS positive Ropinirole may need to be stopped or decreased can cause dizziness and hypotension Case discussed with Neuro that recommended to slowly taper the Requip EEG order by neuro today - no signs of epileptiform activity Will continue monitor closely Follow up w/ neurology in 4 weeks S/P Fall Left Hip pain Due to syncope episode CT cervical spine showed no evidence of acute fracture or traumatic subluxation. Hip Xray showed no fracture or dislocation within the left hip. Mild osteoarthritis. Continue pain control Fall precaution RLS Pt has been on Requip for years Neuro recommended to slowly taper the requip and d/c , now ordered as 0.5 mg BID PRN gabapentin 100mg HS started, plan to continue for 1 week then increase to 200 mg HS Continue monitor Follow up w/ PCP and neurology Chronic diastolic heart failure Last ECHO on 2019 with EF 55-60% Continue metoprolol Will monitor for volume overload CHASITY on CKD stage 3 Creatinine on admission 1.7 Creatinine 1.4 now Continue monitor BMP Tachy-Steven syndrome SSS s/p pacemaker Pacemaker interrogation - working properly Continue Metoprolol and Digoxin On coumadin, INR 3.1 Now INR supratherapeutic, will advise pt to hold coumadin today and tomorrow Check INR as outpt Hypothyroidism Continue levothyroxine DVT prophylaxis Coumadin INR goal between 2 and 3 Full code Patient requests that her daughter be updated by providers. Ms. Jason Keith, contact #[phone]. Total Time Total Time Spent Total Time Spent (In Minutes): 35 Total Time Includes: Examination of the Patient, Discharge Planning, Medication Reconciliation and Communication With Other Providers Discharge Plan Discharge Items Patient Disposition: Home - Home Health Services Reason For Visit: SYNCOPE, HX PPM Discharge Diagnosis: Syncope, orthostatic hypotension Activity: Per Instructions section Non-emergency contact: Primary Care Provider Call non-emergency contact if: you have any medication questions and your symptoms worsen Follow-up/Referrals: Roly Vogel MD [Primary Care Provider] - (Date & Time 04/23/2020 3:00 PM Provider Roly Vogel MD Department Internal Medicine [facility] ) Gracia Garcia MD [Physician] - (Date & Time 06/07/2020 3:00 PM Provider Gracia Garcia MD Department Neurology [facility] ) Diet: Heart Healthy Addtl Attending Provider Instructions: Follow up with your primary care doctor, your appointment was scheduled for 04/23/2020. Take gabapentin 100 mg at night for next 5 days, then increase to 200 mg at night. Decrease your use of Requip to 0.5 mg twice a day, and only take it as needed. You were also started on blood pressure medication, amlodipine, discuss with your primary care doctor if you should continue this medication. Do not take your warfarin today or tomorrow and restart on Wednesday (04/19/2020). Have your INR checked in next 5-7 days. You will need to follow up with neurology in early May, the appointment was scheduled for you. Pending Studies at Discharge: No Stand-Alone Forms: My [employer], Smoking Cessation Medications and DC Order Prescriptions: New gabapentin 100 mg Capsule 100 mg PO HS Qty: 20 RF: 0 amlodipine [Norvasc] 5 mg Tablet 2.5 mg PO HS Qty: 30 RF: 0 Continued amiodarone 200 mg Tablet 200 mg PO DAILY RF: 0 hydroxyzine HCl 25 mg Tablet 25 mg PO Q6 PRN (Reason: Itching) RF: 0 acetaminophen [Tylenol] 325 mg Tablet 650 mg PO Q6H PRN (Reason: Pain) RF: 0 warfarin 1 mg Tablet 2 mg PO 2XWK RF: 0 cholecalciferol (vitamin D3) [Vitamin D3] 50 mcg (2,000 unit) Tablet 50 mcg PO DAILY RF: 0 escitalopram oxalate 5 mg tablet 5 mg PO DAILY RF: 0 metoprolol succinate 25 mg tablet extended release 24 hr 25 mg PO DAILY RF: 0 Vitron-C 65 mg iron- 125 mg Tablet,Delayed Release (Dr/Ec) 1 tab PO DAILY RF: 0 loperamide 2 mg Tablet 2 mg PO DIRECTED MDD 16 MG/24 HOURS PRN (Reason: Diarrhea) RF: 0 famotidine 20 mg Tablet 20 mg PO BID PRN (Reason: GASTRITIS) RF: 0 levothyroxine 50 mcg Tablet 50 mcg PO DAILYBB RF: 0 nitroglycerin 0.4 mg Tablet, Sublingual 0.4 mg Sublingual DIRECTED PRN (Reason: Chest Pain) RF: 0 digoxin 125 mcg Tablet 0.125 mg PO 3XWK RF: 0 warfarin 1 mg Tablet 1 mg PO 5XWK RF: 0 ondansetron 4 mg Tablet,Disintegrating 4 mg translingual QID PRN (Reason: Nausea) RF: 0 rosuvastatin 10 mg Tablet 10 mg PO HS RF: 0 acidophilus-pectin, citrus [Acidophilus Probiotic] 100 million cell-10 mg Capsule 1 cap PO DAILY RF: 0 diphenhydramine-zinc acetate 2-0.1 % cream 1 applic Topical QID PRN (Reason: Itching) RF: 0 betamethasone dipropionate 0.05 % ointment 1 applic Topical BID PRN (Reason: Itching) RF: 0 Changed ropinirole 0.5 mg Tablet 0.5 mg PO BID PRN (Reason: Restless Leg(S)) Qty: 0 RF: 0 Discontinued ropinirole 1 mg Tablet 1 mg PO HS PRN (Reason: Restless Leg(S)) RF: 0 Discharge Orders: Discharge Order (Routine); Ordered 04/17/20 Ordered By: Bishnu Nagy Admission Data Admit Date/Time: 04/16/20 18:38 Attending Provider: Bishnu Nagy Admit Provider: Aron Olvera Primary Care Provider: Roly Vogel Other Providers: Aron Olvera ; [facility] ; Jamila Turcios
[2020-04-17] MEDS ORDERED: WARFARIN SOD 1 MG TAB PO SCH (16:00)
== END 2020-04-17 14:57 | disposition home health service (06) | DRG 312 ==
LOC: 2S 18:41 → ED 18:41 → 2S 21:44 → SUATTDRO 04-16 18:38

== ENCOUNTER 2020-05-23 04:13 | Inpatient (IN) ==
--- NOTE | 2020-05-23 04:52 | Emergency Department Note ---
History of Present Illness General Chief complaint: Fall Stated complaint: Fall Time Seen by Provider: 05/23/20 04:19 Source: patient Mode of arrival: EMS Limitations: no limitations History of Present Illness Provider complaint: Fall, head injury Onset (ago): hour(s) Location: head and lower extremity Radiation: non-radiation Severity: moderate Pain Consistency: + constant Maximum Pain Intensity: 7 Current Pain Intensity: 7 Quality: + constant Relieved By: + none Exacerbated By: + movement Associated symptoms: + syncope Treatments prior to arrival: none This is an 89-year-old female who presents from home via EMS after a fall with associated head trauma. Patient states she had gotten up to use the bathroom and then sat at the table in the kitchen. Patient states the next thing she knew she was on the floor. Patient denies any preceding or prodromal symptoms. Patient concerned she may have "passed out". Patient believes she struck her head on the space heater. Patient does have an obvious contusion noted to the right forehead. Patient complains of pain in the area of the injury on the forehead as well as pain in the left foot. Patient denies any recent illness or exposure to coronavirus. Patient denies any recent change in medications. Patient does use anticoagulation due to history of atrial fibrillation. Patient states she was feeling well earlier in the day yesterday and felt well at the time she went to bed. Patient at this time denies any dizziness, nausea or vomiting, chest pain, palpitations, trouble breathing, abdominal pain, neck or back pain. Pt seen during a time of high acuity and national emergency pandemic while wearing PPE. Home Medications Medication Instructions Recorded Confirmed Type digoxin 0.125 mg PO 3XWK 12/25/17 05/23/20 History levothyroxine 50 mcg PO DAILY@0600 12/25/17 05/23/20 History loperamide 2 mg PO DIRECTED PRN MDD 16 12/25/17 05/23/20 History MG/24 HOURS nitroglycerin 0.4 mg SUBLINGUAL DIRECTED PRN 12/25/17 05/23/20 History ondansetron 4 mg TRANSLINGUAL Q6 PRN 12/25/17 05/23/20 History rosuvastatin 10 mg PO HS 12/25/17 05/23/20 History betamethasone dipropionate 1 applic TOPICAL BID PRN 01/02/18 05/23/20 History diphenhydramine-zinc acetate 1 applic TOPICAL QID PRN 01/02/18 05/23/20 History acetaminophen [Tylenol] 650 mg PO Q6H PRN 08/21/18 05/23/20 History amiodarone 200 mg PO DAILY 08/21/18 05/23/20 History hydroxyzine HCl 25 mg PO Q6 PRN 08/21/18 05/23/20 History cholecalciferol (vitamin D3) 50 mcg PO DAILY 05/31/19 05/23/20 History [Vitamin D3] escitalopram oxalate 5 mg PO DAILY 05/31/19 05/23/20 History metoprolol succinate 25 mg PO DAILY 05/31/19 05/23/20 History warfarin 1 mg PO SUMOTUTHFRSA@1600 05/31/19 05/23/20 History amlodipine [Norvasc] 2.5 mg PO HS #30 tab 04/17/20 05/23/20 Rx ropinirole 0.5 mg PO BID PRN #0 tab 04/17/20 05/23/20 Rx ammonium lactate 1 applic TOPICAL BID PRN 05/23/20 05/23/20 History gabapentin 200 mg PO HS 05/23/20 05/23/20 History levocetirizine 5 mg PO DAILY 05/23/20 05/23/20 History warfarin 2 mg PO WE@1600 05/23/20 05/23/20 History Allergies Allergy/AdvReac Type Severity Reaction Status Date / Time ciprofloxacin Allergy Intermediate RASH Verified 05/23/20 04:46 Sulfa (Sulfonamide Allergy Intermediate HIVES, RASH Verified 05/23/20 04:46 Antibiotics) adhesive Allergy Unknown ADHESIVE Verified 05/23/20 04:46 TAPE Cipro Allergy Unknown RASH Verified 10/25/17 05:26 estrogens, conjugated Allergy Unknown SEVERE Verified 05/23/20 04:46 RASH, PAINFUL FROM VAGINAL CREAM tetanus toxoid, adsorbed Allergy Unknown UNKNOWN Verified 05/23/20 04:46 Past Med/Surg History Medical History (Updated 05/24/20 @ 20:50 by Yesy Riggs DO) Atrial fibrillation Chronic diastolic CHF (congestive heart failure) CKD (chronic kidney disease), stage III Diverticular disease of colon Dyslipidemia HTN (hypertension) HTN (hypertension) Hypothyroidism Pacemaker RLS (restless legs syndrome) Rosacea SVT (supraventricular tachycardia) Tachy-neid syndrome Surgical History History of carpal tunnel surgery History of cataract surgery History of colon resection History of hysterectomy History of tonsillectomy and adenoidectomy History of total right knee replacement S/P laparoscopic-assisted sigmoidectomy S/P ELISHA (total abdominal hysterectomy) Family History (Updated 05/23/20 @ 09:22 by Liza Castillo PA-C) Other Heart disease Social History Smoking Status: Never smoker Second Hand Exposure: No; Do You Dip or Chew Tobacco: No; Tobacco Cessation Education Requested by Patient: No Hx Alcohol Use: No Hx Substance Use: No Preferred Language: Wolof Communication Ability: Effective Visual Impairment: No Limitations Education Professor Required: No Beliefs That Will Affect Care: None marital status: / Current Living Situation: Family Current Living Situation Comment: LIVES WITH DAUGHTER HERNANDO Other Information That Helps Us Care for You: No Feels Safe at Home: Yes Safety Concerns: Feels Safe At This Time Assistive Devices: Denture - Upper, Denture - Lower, Glasses and Walker Assistive Devices Comment: hearing aids at home Review of Systems See HPI for pertinent positives & negatives. and A total of 10 systems reviewed and were otherwise negative Physical Exam Vital Signs Vital Signs - 24 hr 05/23/20 23:23 05/23/20 23:26 05/24/20 03:01 Temperature 36.7 C 36.7 C Temperature Source Oral Oral Pulse Rate - Lying Pulse Rate - Sitting Pulse Rate - Standing Pulse Rate 62 Pulse Rate [Right Finger] 62 75 Pulse Rhythm [Right Finger] Regular Pulse Strength [Right Finger] Normal Respiratory Rate 16 16 Respiratory Effort / Characteristics Non-Labored Respiratory Depth Normal Respiratory Pattern Regular Blood Pressure - Lying Blood Pressure - Sitting Blood Pressure- Standing Blood Pressure [Right Arm] 124/67 122/68 Blood Pressure Mean [Right Arm] 86 86 Blood Pressure Position [Right Arm] Semi-fowlers Lying Pulse Oximetry 96 94 Oxygen Delivery Method Room Air Room Air 05/24/20 07:57 05/24/20 08:00 05/24/20 11:38 Temperature 36.5 C 36.7 C Temperature Source Oral Oral Pulse Rate - Lying Pulse Rate - Sitting Pulse Rate - Standing Pulse Rate 60 Pulse Rate [Right Finger] 63 65 Pulse Rhythm [Right Finger] Pulse Strength [Right Finger] Respiratory Rate 18 18 Respiratory Effort / Characteristics Respiratory Depth Respiratory Pattern Blood Pressure - Lying Blood Pressure - Sitting Blood Pressure- Standing Blood Pressure [Right Arm] 154/73 H 138/71 Blood Pressure Mean [Right Arm] 100 93 Blood Pressure Position [Right Arm] Pulse Oximetry 95 96 Oxygen Delivery Method Room Air 05/24/20 15:26 05/24/20 16:00 05/24/20 16:54 Temperature Temperature Source Pulse Rate - Lying 72 Pulse Rate - Sitting 70 Pulse Rate - Standing 68 Pulse Rate 65 70 Pulse Rate [Right Finger] Pulse Rhythm [Right Finger] Pulse Strength [Right Finger] Respiratory Rate 19 Respiratory Effort / Characteristics Respiratory Depth Respiratory Pattern Blood Pressure - Lying 114/54 L Blood Pressure - Sitting 103/54 L Blood Pressure- Standing 86/47 L Blood Pressure [Right Arm] 114/54 L Blood Pressure Mean [Right Arm] 74 Blood Pressure Position [Right Arm] Pulse Oximetry 94 Oxygen Delivery Method Room Air GENERAL: alert, well appearing, well nourished, no distress, non-toxic HEAD: nc, obvious contusion to the right superior forehead near the hairline/scalp, no other facial trauma noted, no midface instability, no bermudez sign, no raccoon eyes EYE EXAM: normal conjunctiva, PERRL and EOM's grossly intact OROPHARYNX: no exudate, no erythema, lips, buccal mucosa, and tongue normal and mucous membranes are moist NECK: supple, no nuchal rigidity, no adenopathy, non-tender, FROM LUNGS: Clear to auscultation. Normal chest wall mechanics, no w/r/r CHEST WALL: No crepitus, nontender to palpation, no step-off HEART: no murmurs, S1 normal and S2 normal, pacemaker noted left anterior superior chest wall ABDOMEN: abdomen soft, non-tender, normo-active bowel sounds, no masses, no rebound or guarding. No ecchymosis or evidence of trauma. BACK: Back is symmetrical on inspection and there is no deformity, no midline te nderness, no CVA tenderness. SKIN: no rashes and no bruising UPPER EXTREMITIES: upper extremities are grossly normal. FROM, nml pulses b/l. No evidence of trauma or deformity. LOWER EXTREMITIES: No pitting edema. FROM, nml pulses b/l. Ecchymosis noted along the left lateral dorsal foot, no obvious deformity, mildly tender with palpation. Sensation intact bilateral lower extremities. NEURO EXAM: Normal sensorium, cranial nerves II-XII grossly intact, normal speech, no gross weakness of arms, no gross weakness of legs. Gross sensation intact. Course Course 629: Patient updated on results thus far. Patient's only complaint is of pain in her foot. 0636: Left message on daughter's voicemail. 0706: Discussed with daughter. States she does not feel her mother would want to go to rehab. States they do have an additional family member that comes and helps her during the day however she does typically use a cane or walker. She does verify she has a lift chair at home. Patient was very unsteady here even with a 2 person assist and I feel could not safely be discharged home even with the additional assistive devices and family members at this time. 0725: Discussed with Dr. Hernandez. Administered Medications Acetaminophen (Acetaminophen 325 Mg Tab) 650 mg PO Q4H PRN PRN Reason: Pain or Fever Stop: 06/22/20 12:07 Last Admin: 05/24/20 00:09 Dose: 650 mg Documented by: [id number] Amiodarone HCl (Amiodarone 200 Mg Tab) 200 mg PO DAILY JAKI Stop: 06/22/20 12:07 Last Admin: 05/24/20 07:58 Dose: 200 mg Documented by: [id number] Admin: 05/23/20 12:55 Dose: 200 mg Documented by: [id number] Digoxin (Digoxin 0.125 Mg Tab) 0.125 mg PO MoWeFr@1600 JAKI Stop: 06/23/20 15:59 Last Admin: 05/24/20 16:54 Dose: 0.125 mg Documented by: [id number] Escitalopram Oxalate (Escitalopram Oxalate 10 Mg Tab) 5 mg PO DAILY JAKI Stop: 06/23/20 08:59 Last Admin: 05/24/20 07:57 Dose: 5 mg Documented by: [id number] Gabapentin (Gabapentin 100 Mg Cap) 100 mg PO HS JAKI Stop: 06/23/20 20:59 Last Admin: 05/24/20 19:53 Dose: 100 mg Documented by: [id number] Hydrocortisone (Hydrocortisone 2.5% Cr 30 Gm Tube) 1 appln EXT BID PRN PRN Reason: inflammed skin Stop: 06/22/20 23:53 Last Admin: 05/24/20 00:18 Dose: 1 appln Documented by: [id number] Ceftriaxone Sodium 1,000 mg/ (Dextrose) 50 mls @ 100 mls/hr IV Q24H [facility]; Protocol Stop: 05/29/20 08:59 Last Infusion: 05/24/20 08:43 Dose: 0 mls/hr Documented by: [id number] Admin: 05/24/20 07:58 Dose: 100 mls/hr Documented by: [id number] Levothyroxine Sodium (Levothyroxine Sodium 50 Mcg Tablet) 50 mcg PO DAILY@0600 [facility] Stop: 06/22/20 12:07 Last Admin: 05/24/20 05:59 Dose: 50 mcg Documented by: [id number] Admin: 05/23/20 12:55 Dose: 50 mcg Documented by: [id number] Metoprolol Succinate (Metoprolol Succ 25mg Ext Rel Tab) 25 mg PO DAILY [facility] Stop: 06/22/20 12:07 Last Admin: 05/24/20 07:58 Dose: 25 mg Documented by: [id number] Admin: 05/23/20 12:55 Dose: 25 mg Documented by: [id number] Rosuvastatin Calcium (Rosuvastatin Calcium 10 Mg Tab) 10 mg PO HS [facility] Stop: 06/22/20 20:59 Last Admin: 05/24/20 19:53 Dose: 10 mg Documented by: [id number] Admin: 05/23/20 20:49 Dose: 10 mg Documented by: [id number] Saccharomyces Boulardii (Saccharomyces Boulardii 250 Mg Cap) 250 mg PO DAILY [facility] Stop: 06/23/20 08:59 Last Admin: 05/24/20 07:58 Dose: 250 mg Documented by: [id number] Tramadol HCl (Tramadol Hcl 50 Mg Tablet) 25 mg PO Q4H PRN PRN Reason: Pain Stop: 06/23/20 01:31 Last Admin: 05/24/20 01:56 Dose: 25 mg Documented by: [id number] Vitamin D (Cholecalciferol 1,000 Units 25 Mcg Tab) 2,000 units PO DAILY [facility] Stop: 06/23/20 08:59 Last Admin: 05/24/20 07:58 Dose: 2,000 units Documented by: [id number] Warfarin Sodium (Warfarin Sod 2 Mg Tab) 2 mg PO DAILY@1600 JAKI Stop: 06/23/20 18:44 Last Admin: 05/24/20 19:17 Dose: 2 mg Documented by: [id number] Discontinued Medications Amlodipine Besylate (Amlodipine Besylate 5 Mg Tab) 2.5 mg PO JAKI Stop: 06/22/20 20:59 Last Admin: 05/23/20 20:49 Dose: 2.5 mg Documented by: [id number] Gabapentin (Gabapentin 100 Mg Cap) 200 mg PO JAKI Stop: 06/22/20 20:59 Last Admin: 05/23/20 20:49 Dose: Not Given Documented by: [id number] Sodium Chloride (Nss 1000ml) 1,000 mls @ 125 mls/hr IV .Q8H JAKI Stop: 06/22/20 04:59 Last Infusion: 05/23/20 18:41 Dose: 0 mls/hr Documented by: [id number] Admin: 05/23/20 05:30 Dose: 125 mls/hr Documented by: [id number] Ceftriaxone Sodium (Rocephin) 1,000 mg in 50 mls @ 100 mls/hr IV NOW STA Stop: 05/23/20 06:43 Last Infusion: 05/23/20 11:30 Dose: 0 mls/hr Documented by: [id number] Admin: 05/23/20 06:23 Dose: 100 mls/hr Documented by: [id number] Acetaminophen (Ofirmev) 1,000 mg in 100 mls @ 400 mls/hr IV NOW STA Stop: 05/23/20 09:14 Last Infusion: 05/23/20 11:30 Dose: 0 mls/hr Documented by: [id number] Admin: 05/23/20 10:10 Dose: 400 mls/hr Documented by: [id number] Sodium Chloride (Nss 1000ml) 1,000 mls @ 75 mls/hr IV [id number] JAKI Stop: 05/24/20 01:27 Last Infusion: 05/24/20 02:37 Dose: 0 mls/hr Documented by: [id number] Admin: 05/23/20 12:15 Dose: 75 mls/hr Documented by: [id number] Lisinopril (Lisinopril 2.5 Mg Tab) 2.5 mg PO QA JAKI Stop: 06/23/20 08:59 Last Admin: 05/24/20 10:06 Dose: 2.5 mg Documented by: [id number] Miscellaneous (Levocetirizine 5 Mg: Order Awaiting Action) 1 ea N/A DAILY [facility] Stop: 06/23/20 08:59 Last Admin: 05/24/20 07:59 Dose: Not Given Documented by: [id number] Potassium Chloride (Potassium Chloride Crtab 20 Meq Tabcr) 20 meq PO NOW STA Stop: 05/23/20 09:43 Last Admin: 05/23/20 10:10 Dose: 20 meq Documented by: [id number] Ropinirole HCl (Ropinirole Hcl 0.25 Mg Tablet) 0.5 mg PO BID PRN PRN Reason: Restless Leg(S) Stop: 06/22/20 12:07 Last Admin: 05/23/20 12:56 Dose: 0.5 mg Documented by: [id number] Warfarin Sodium (Warfarin Sod 2 Mg Tab) 2 mg PO DAILY@1600 [facility] Stop: 05/23/20 16:01 Last Admin: 05/23/20 16:16 Dose: 2 mg Documented by: [id number] Medical Decision Making Differential Diagnosis Vasovagal event, dehydration, infection, hypoglycemia, electrolyte abnormalities, cardiac sources, intracerebral event, pulmonary embolism, seizu re, toxicologic, neurologic, as well as other pathologies. Medical Records Attestation: I reviewed the patient's medical records. Home Medications Current Medication List: was personally reviewed by me Laboratory Data Attestation: I reviewed the patient's lab results. Result diagrams: 05/24/20 07:07 05/24/20 07:07 Lab Results 05/23/20 05/23/20 05/23/20 Range/Units 04:45 04:55 04:55 WBC 7.67 (4.8-10.8) K/uL RBC 4.13 L (4.2-5.4) M/uL Hgb 12.3 (12.0-16.0) g/dL Hct 38.7 (37-47) % MCV 93.7 (80-100) fL MCH 29.8 (25-34) pg MCHC 31.8 L (32-36) g/dL RDW Std Deviation 54.2 H (36.4-46.3) fL RDW Coeff of Mino 15.7 H (11.5-14.5) % Plt Count 229 (130-400) K/uL MPV 10.8 H (7.4-10.4) fL Immature Gran % (Auto) 0.1 % Neut % (Auto) 66.1 % Lymph % (Auto) 19.4 % Desha % (Auto) 10.3 % Eos % (Auto) 3.8 % Baso % (Auto) 0.3 % Neut # (Auto) 5.07 (1.4-6.5) K/uL Lymph # (Auto) 1.49 (1.2-3.4) K/uL Desha # (Auto) 0.79 H (0.11-0.59) K/uL Eos # (Auto) 0.29 (0-0.5) K/uL Baso # (Auto) 0.02 (0-0.2) K/uL Immature Gran # (Auto) 0.01 (0.00-0.02) K/uL PT Cancelled INR Cancelled Sodium (136-145) mmol/L Potassium (3.5-5.1) mmol/L Chloride (98-107) mmol/L Carbon Dioxide (21-32) mmol/L Anion Gap (3-11) BUN (7-18) mg/dl Creatinine (0.6-1.2) mg/dl Est Cr Clr Drug Dosing ml/min Est GFR ( Amer) Est GFR (Non-Af Amer) BUN/Creatinine Ratio (10-20) Glucose (70-99) mg/dl Calcium (8.5-10.1) mg/dl Magnesium (1.8-2.4) mg/dl Total Bilirubin (0.2-1) mg/dl AST (15-37) U/L ALT (12-78) U/L Alkaline Phosphatase (45-117) U/L Total Creatine Kinase (26-192) U/L Troponin I (0-0.045) ng/ml NT-Pro-B Natriuret Pep (0-1800) pg/ml Total Protein (6.4-8.2) gm/dl Albumin (3.4-5.0) gm/dl Globulin (2.5-4.0) gm/dl Albumin/Globulin Ratio (0.9-2) Lipase (73-393) U/L TSH (0.300-4.500) uIu/ml Free T4 (0.8-1.6) ng/dl Urine Color Yellow Urine Appearance Cloudy A (Clear) Urine pH 6.5 (4.5-7.5) Ur Specific [place] 1.007 (1.000-1.030) Urine Protein Negative (Negative) Urine Glucose (UA) Negative (Negative) Urine Ketones Negative (Negative) Urine Blood Negative (Negative) Urine Nitrite Negative (Negative) Urine Bilirubin Negative (Negative) Urine Urobilinogen Negative (Negative) Ur Leukocyte Esterase 2+ H (Negative) Urine WBC (Auto) 10-30 H (0-5) /hpf Urine RBC (Auto) 0-4 (0-4) /hpf U Hyaline Cast (Auto) 1-5 (0-5) /lpf U Epithel Cells (Auto) 20-30 H (0-5) /lpf Urine Bacteria (Auto) 1+ H (Negative) COVID-19 Eval Order SARS-CoV-2 (PCR) (Negative) Influenza Type A (PCR) (Neg) Influenza Type B (PCR) (Neg) RSV (RT-PCR) (Neg) 05/23/20 05/23/20 05/23/20 Range/Units 04:55 06:16 06:17 WBC (4.8-10.8) K/uL RBC (4.2-5.4) M/uL Hgb (12.0-16.0) g/dL Hct (37-47) % MCV (80-100) fL MCH (25-34) pg MCHC (32-36) g/dL RDW Std Deviation (36.4-46.3) fL RDW Coeff of Mino (11.5-14.5) % Plt Count (130-400) K/uL MPV (7.4-10.4) fL Immature Gran % (Auto) % Neut % (Auto) % Lymph % (Auto) % Desha % (Auto) % Eos % (Auto) % Baso % (Auto) % Neut # (Auto) (1.4-6.5) K/uL Lymph # (Auto) (1.2-3.4) K/uL Desha # (Auto) (0.11-0.59) K/uL Eos # (Auto) (0-0.5) K/uL Baso # (Auto) (0-0.2) K/uL Immature Gran # (Auto) (0.00-0.02) K/uL PT 15.2 H INR 1.5 H Sodium 136 (136-145) mmol/L Potassium 3.9 (3.5-5.1) mmol/L Chloride 108 H (98-107) mmol/L Carbon Dioxide 29 (21-32) mmol/L Anion Gap -1.0 L (3-11) BUN 15 (7-18) mg/dl Creatinine 1.42 H (0.6-1.2) mg/dl Est Cr Clr Drug Dosing 21.6 ml/min Est GFR ( Amer) 37.9 Est GFR (Non-Af Amer) 32.7 BUN/Creatinine Ratio 10.9 (10-20) Glucose 95 (70-99) mg/dl Calcium 8.6 (8.5-10.1) mg/dl Magnesium 2.6 H (1.8-2.4) mg/dl Total Bilirubin 0.8 (0.2-1) mg/dl AST 61 H (15-37) U/L ALT 81 H (12-78) U/L Alkaline Phosphatase 117 (45-117) U/L Total Creatine Kinase (26-192) U/L Troponin I < 0.015 (0-0.045) ng/ml NT-Pro-B Natriuret Pep 641 (0-1800) pg/ml Total Protein 8.4 H (6.4-8.2) gm/dl Albumin 3.5 (3.4-5.0) gm/dl Globulin 4.9 H (2.5-4.0) gm/dl Albumin/Globulin Ratio 0.7 L (0.9-2) Lipase 215 (73-393) U/L TSH 4.860 H (0.300-4.500) uIu/ml Free T4 1.27 (0.8-1.6) ng/dl Urine Color Urine Appearance (Clear) Urine pH (4.5-7.5) Ur Specific [place] (1.000-1.030) Urine Protein (Negative) Urine Glucose (UA) (Negative) Urine Ketones (Negative) Urine Blood (Negative) Urine Nitrite (Negative) Urine Bilirubin (Negative) Urine Urobilinogen (Negative) Ur Leukocyte Esterase (Negative) Urine WBC (Auto) (0-5) /hpf Urine RBC (Auto) (0-4) /hpf U Hyaline Cast (Auto) (0-5) /lpf U Epithel Cells (Auto) (0-5) /lpf Urine Bacteria (Auto) (Negative) COVID-19 Eval Order SARS-CoV-2 (PCR) (Negative) Influenza Type A (PCR) (Neg) Influenza Type B (PCR) (Neg) RSV (RT-PCR) (Neg) 05/23/20 05/23/20 05/23/20 Range/Units 06:17 08:08 08:08 WBC (4.8-10.8) K/uL RBC (4.2-5.4) M/uL Hgb (12.0-16.0) g/dL Hct (37-47) % MCV (80-100) fL MCH (25-34) pg MCHC (32-36) g/dL RDW Std Deviation (36.4-46.3) fL RDW Coeff of Mino (11.5-14.5) % Plt Count (130-400) K/uL MPV (7.4-10.4) fL Immature Gran % (Auto) % Neut % (Auto) % Lymph % (Auto) % Desha % (Auto) % Eos % (Auto) % Baso % (Auto) % Neut # (Auto) (1.4-6.5) K/uL Lymph # (Auto) (1.2-3.4) K/uL Desha # (Auto) (0.11-0.59) K/uL Eos # (Auto) (0-0.5) K/uL Baso # (Auto) (0-0.2) K/uL Immature Gran # (Auto) (0.00-0.02) K/uL PT INR Sodium (136-145) mmol/L Potassium (3.5-5.1) mmol/L Chloride (98-107) mmol/L Carbon Dioxide (21-32) mmol/L Anion Gap (3-11) BUN (7-18) mg/dl Creatinine (0.6-1.2) mg/dl Est Cr Clr Drug Dosing ml/min Est GFR ( Amer) Est GFR (Non-Af Amer) BUN/Creatinine Ratio (10-20) Glucose (70-99) mg/dl Calcium (8.5-10.1) mg/dl Magnesium (1.8-2.4) mg/dl Total Bilirubin (0.2-1) mg/dl AST (15-37) U/L ALT (12-78) U/L Alkaline Phosphatase (45-117) U/L Total Creatine Kinase 131 (26-192) U/L Troponin I (0-0.045) ng/ml NT-Pro-B Natriuret Pep (0-1800) pg/ml Total Protein (6.4-8.2) gm/dl Albumin (3.4-5.0) gm/dl Globulin (2.5-4.0) gm/dl Albumin/Globulin Ratio (0.9-2) Lipase (73-393) U/L TSH (0.300-4.500) uIu/ml Free T4 (0.8-1.6) ng/dl Urine Color Urine Appearance (Clear) Urine pH (4.5-7.5) Ur Specific [place] (1.000-1.030) Urine Protein (Negative) Urine Glucose (UA) (Negative) Urine Ketones (Negative) Urine Blood (Negative) Urine Nitrite (Negative) Urine Bilirubin (Negative) Urine Urobilinogen (Negative) Ur Leukocyte Esterase (Negative) Urine WBC (Auto) (0-5) /hpf Urine RBC (Auto) (0-4) /hpf U Hyaline Cast (Auto) (0-5) /lpf U Epithel Cells (Auto) (0-5) /lpf Urine Bacteria (Auto) (Negative) COVID-19 Eval Order CovFluRsv at [facility] SARS-CoV-2 (PCR) NEGATIVE (Negative) Influenza Type A (PCR) Negative (Neg) Influenza Type B (PCR) Negative (Neg) RSV (RT-PCR) Negative (Neg) 05/23/20 05/23/20 05/24/20 Range/Units 10:22 16:11 07:07 WBC 7.46 (4.8-10.8) K/uL RBC 3.92 L (4.2-5.4) M/uL Hgb 11.9 L (12.0-16.0) g/dL Hct 36.3 L (37-47) % MCV 92.6 (80-100) fL MCH 30.4 (25-34) pg MCHC 32.8 (32-36) g/dL RDW Std Deviation 52.7 H (36.4-46.3) fL RDW Coeff of Mino 15.4 H (11.5-14.5) % Plt Count 228 (130-400) K/uL MPV 10.8 H (7.4-10.4) fL Immature Gran % (Auto) 0.3 % Neut % (Auto) 67.0 % Lymph % (Auto) 16.6 % Desha % (Auto) 11.8 % Eos % (Auto) 4.0 % Baso % (Auto) 0.3 % Neut # (Auto) 5.00 (1.4-6.5) K/uL Lymph # (Auto) 1.24 (1.2-3.4) K/uL Desha # (Auto) 0.88 H (0.11-0.59) K/uL Eos # (Auto) 0.30 (0-0.5) K/uL Baso # (Auto) 0.02 (0-0.2) K/uL Immature Gran # (Auto) 0.02 (0.00-0.02) K/uL PT INR Sodium (136-145) mmol/L Potassium (3.5-5.1) mmol/L Chloride (98-107) mmol/L Carbon Dioxide (21-32) mmol/L Anion Gap (3-11) BUN (7-18) mg/dl Creatinine (0.6-1.2) mg/dl Est Cr Clr Drug Dosing ml/min Est GFR ( Amer) Est GFR (Non-Af Amer) BUN/Creatinine Ratio (10-20) Glucose (70-99) mg/dl Calcium (8.5-10.1) mg/dl Magnesium (1.8-2.4) mg/dl Total Bilirubin (0.2-1) mg/dl AST (15-37) U/L ALT (12-78) U/L Alkaline Phosphatase (45-117) U/L Total Creatine Kinase (26-192) U/L Troponin I < 0.015 < 0.015 (0-0.045) ng/ml NT-Pro-B Natriuret Pep (0-1800) pg/ml Total Protein (6.4-8.2) gm/dl Albumin (3.4-5.0) gm/dl Globulin (2.5-4.0) gm/dl Albumin/Globulin Ratio (0.9-2) Lipase (73-393) U/L TSH (0.300-4.500) uIu/ml Free T4 (0.8-1.6) ng/dl Urine Color Urine Appearance (Clear) Urine pH (4.5-7.5) Ur Specific [place] (1.000-1.030) Urine Protein (Negative) Urine Glucose (UA) (Negative) Urine Ketones (Negative) Urine Blood (Negative) Urine Nitrite (Negative) Urine Bilirubin (Negative) Urine Urobilinogen (Negative) Ur Leukocyte Esterase (Negative) Urine WBC (Auto) (0-5) /hpf Urine RBC (Auto) (0-4) /hpf U Hyaline Cast (Auto) (0-5) /lpf U Epithel Cells (Auto) (0-5) /lpf Urine Bacteria (Auto) (Negative) COVID-19 Eval Order SARS-CoV-2 (PCR) (Negative) Influenza Type A (PCR) (Neg) Influenza Type B (PCR) (Neg) RSV (RT-PCR) (Neg) 05/24/20 05/24/20 Range/Units 07:07 07:07 WBC (4.8-10.8) K/uL RBC (4.2-5.4) M/uL Hgb (12.0-16.0) g/dL Hct (37-47) % MCV (80-100) fL MCH (25-34) pg MCHC (32-36) g/dL RDW Std Deviation (36.4-46.3) fL RDW Coeff of Mino (11.5-14.5) % Plt Count (130-400) K/uL MPV (7.4-10.4) fL Immature Gran % (Auto) % Neut % (Auto) % Lymph % (Auto) % Desha % (Auto) % Eos % (Auto) % Baso % (Auto) % Neut # (Auto) (1.4-6.5) K/uL Lymph # (Auto) (1.2-3.4) K/uL Desha # (Auto) (0.11-0.59) K/uL Eos # (Auto) (0-0.5) K/uL Baso # (Auto) (0-0.2) K/uL Immature Gran # (Auto) (0.00-0.02) K/uL PT 16.0 H INR 1.6 H Sodium 135 L (136-145) mmol/L Potassium 4.1 (3.5-5.1) mmol/L Chloride 106 (98-107) mmol/L Carbon Dioxide 27 (21-32) mmol/L Anion Gap 3.0 (3-11) BUN 12 (7-18) mg/dl Creatinine 1.21 H (0.6-1.2) mg/dl Est Cr Clr Drug Dosing 25.1 ml/min Est GFR ( Amer) 45.9 Est GFR (Non-Af Amer) 39.6 BUN/Creatinine Ratio 10.1 (10-20) Glucose 85 (70-99) mg/dl Calcium 8.7 (8.5-10.1) mg/dl Magnesium 2.3 (1.8-2.4) mg/dl Total Bilirubin 0.6 (0.2-1) mg/dl AST 55 H (15-37) U/L ALT 63 (12-78) U/L Alkaline Phosphatase 94 (45-117) U/L Total Creatine Kinase (26-192) U/L Troponin I (0-0.045) ng/ml NT-Pro-B Natriuret Pep (0-1800) pg/ml Total Protein 6.8 (6.4-8.2) gm/dl Albumin 3.4 (3.4-5.0) gm/dl Globulin 3.4 (2.5-4.0) gm/dl Albumin/Globulin Ratio 1.0 (0.9-2) Lipase (73-393) U/L TSH (0.300-4.500) uIu/ml Free T4 (0.8-1.6) ng/dl Urine Color Urine Appearance (Clear) Urine pH (4.5-7.5) Ur Specific [place] (1.000-1.030) Urine Protein (Negative) Urine Glucose (UA) (Negative) Urine Ketones (Negative) Urine Blood (Negative) Urine Nitrite (Negative) Urine Bilirubin (Negative) Urine Urobilinogen (Negative) Ur Leukocyte Esterase (Negative) Urine WBC (Auto) (0-5) /hpf Urine RBC (Auto) (0-4) /hpf U Hyaline Cast (Auto) (0-5) /lpf U Epithel Cells (Auto) (0-5) /lpf Urine Bacteria (Auto) (Negative) COVID-19 Eval Order SARS-CoV-2 (PCR) (Negative) Influenza Type A (PCR) (Neg) Influenza Type B (PCR) (Neg) RSV (RT-PCR) (Neg) Imaging Data Radiologist's Impression: CT head: Comparison to April 14, 2020. Small right frontal scalp hematoma. There is no skull fracture. The paranasal sinuses and mastoid air cells are normal. There is a normal gyral pattern of the brain. There is no mass lesion or midline shift. There is mild to moderate periventricular white matter low-density bilaterally consistent with chronic small vessel disease and/or senescent changes. There is no evidence of acute large vessel infarct or intracranial hemorrhage. Radiologist: Isaiah Franco MD CT C-spine: Comparison to April 14, 2020. Mild narrowing and osteophytosis of the atlantodental joint. The odontoid process is intact. Diffuse osteopenia. Mild to moderate multilevel degenerative changes greatest in the mid cervical spine. Mild multilevel facet arthrosis is also present. No acute cervical spine fracture, subluxation, or canal compromise is identified. Radiologist: Isaiah Franco MD ECG Data Attestation: I personally reviewed and interpreted this ECG as follows: Indication: + syncope Rate (beats per minute): 63 Rhythm: + other (paced) ECG Intervals/blocks: + Normal QRS and + Normal QT ECG [place]: + Left axis deviation MDM Narrative This is an 89 yo female who presents from home following a fall. Patient remembers sitting down but doesn't know how she ended up on the floor. VS stable. No prior hx of syncope. Labs sent, pt placed on tele, sent for imaging. Patient possible evolving UTI although suboptimal specimen. Patient was found to have fracture of left foot which at her age and hx of needing a walker and ambulatory dysfunction will likely worsen her stability. We did attempt to help patient ambulate here and she was highly unstable and required a full 2 person assist. Both patient and daughter who she lives with do not want her to go to inpatient rehab for unknown reasons. No evidence of cardiac etiology, no ectopy or dysrhythmia noted on tele, no evidence of bacteremia/sepsis. Given concer for a safe discharge plan, I did speak with the patients daughter and following that conversation discussed with hospitalist for additional evaluation and monitoring. An order was placed for continuous cardiac monitoring. The monitor shows a rate of _70_ with _paced_ rhythm. Impression & Plan Syncope, Head injury, UTI (urinary tract infection), Fracture of 5th metatarsal, Anemia, CHI (closed head injury), CKD (chronic kidney disease), Contusion of face Discharge Plan Visit Data Chief Complaint: Fall Stated Complaint: Fall ED Provider: Yesy Riggs Discharge Problem: Syncope, Head injury, UTI (urinary tract infection), Fracture of 5th metatarsal, Anemia, CHI (closed head injury), CKD (chronic kidney disease), Contusion of face Patient Disposition: Admitted As Inpatient Discharge Instructions Interventions: ED Discharge Assessment Last Done: 05/23/20 11:15 Discharge Problem: Syncope Qualifiers: Syncope type: unspecified Qualified Code(s): R55 - Syncope and collapse Head injury Qualifiers: Encounter type: initial encounter Qualified Code(s): S09.90XA - Unspecified injury of head, initial encounter UTI (urinary tract infection) Qualifiers: Urinary tract infection type: acute cystitis Hematuria presence: without hematuria Qualified Code(s): N30.00 - Acute cystitis without hematuria Fracture of 5th metatarsal Qualifiers: Encounter type: initial encounter Fracture type: closed Fracture alignment: displaced Laterality: left Qualified Code(s): S92.352A - Displaced fracture of fifth metatarsal bone, left foot, initial encounter for closed fracture Anemia Qualifiers: Anemia type: unspecified type Qualified Code(s): D64.9 - Anemia, unspecified CHI (closed head injury) Qualifiers: Encounter type: initial encounter Qualified Code(s): S09.90XA - Unspecified injury of head, initial encounter CKD (chronic kidney disease) Qualifiers: Chronic kidney disease stage: unspecified stage Qualified Code(s): N18.9 - Chronic kidney disease, unspecified Contusion of face Qualifiers: Encounter type: initial encounter Qualified Code(s): S00.83XA - Contusion of other part of head, initial encounter
[2020-05-23] MEDS ORDERED: SODIUM CHLORIDE 0.9% 1000ML 1,000 ML IV SCH ×2 (05:00→12:08)
[2020-05-23 05:07] LABS: Basophils # (auto) 0.02 K/uL (0-0.2); Basophils % (auto) 0.3 %; Eosinophils # (auto) 0.29 K/uL (0-0.5); Eosinophils % (auto) 3.8 %; Hematocrit (blood only) 38.7 % (37-47); Hemoglobin 12.3 g/dL (12.0-16.0); Immature Granulocytes # (auto) 0.01 K/uL (0.00-0.02); Immature Granulocytes % (auto) 0.1 %; Lymphocytes # (auto) 1.49 K/uL (1.2-3.4); Lymphocytes % (auto) 19.4 %; Mean Corpuscular Hemoglobin 29.8 pg (25-34); Mean Corpuscular Hgb Conc 31.8 g/dL (32-36); Mean Corpuscular Volume 93.7 fL (80-100); Mean Platelet Volume 10.8 fL (7.4-10.4); Monocytes # (auto) 0.79 K/uL (0.11-0.59); Monocytes % (auto) 10.3 %; Neutrophils # (auto) 5.07 K/uL (1.4-6.5); Neutrophils % (auto) 66.1 %; Platelet Count 229 K/uL (130-400); RDW Coefficient of Variation 15.7 % (11.5-14.5); RDW Standard Deviation 54.2 fL (36.4-46.3); Red Blood Count 4.13 M/uL (4.2-5.4); White Blood Count 7.67 K/uL (4.8-10.8)
[2020-05-23 05:31] LABS: Appearance Urine Cloudy (Clear); Bacteria Urine Automated 1+ (Negative); Bilirubin Urine Negative (Negative); Blood Urine Negative (Negative); Color Urine Yellow; Epithelial Cell Urine Auto 20-30 /lpf (0-5); Glucose Urine UA Negative (Negative); Ketones Urine Negative (Negative); Leukocyte Esterase Urine 2+ (Negative); Nitrite Urine Negative (Negative); Protein Urine Negative (Negative); RBC Urine Automated 0-4 /hpf (0-4); Specific Gravity Urine 1.007 (1.000-1.030); Urobilinogen Urine Negative (Negative); pH Urine 6.5 (4.5-7.5)
[2020-05-23] MEDS ORDERED: cefTRIAXone SODIUM 1,000 MG/50 ML BAG IV STA (06:14)
[2020-05-23 06:39] LABS: INR 1.5 (0.9-1.1); Prothrombin Time 15.2 Seconds (9.0-12.0)
--- NOTE | 2020-05-23 06:39 | CT Scan Report ---
CT cervical spine wo con CLINICAL HISTORY: 89 years-old Female with trauma. Acute head and neck trauma status post fall COMPARISON: CT cervical spine 04/14/2020 TECHNIQUE: Multiple axial CT images of the cervical spine were obtained without contrast. A dose low ering technique was utilized adhering to the principles of ALARA. FINDINGS: Demineralized appearance of the bones. Moderate disc space narrowing at C4-C5 and C5-C6 with associat ed spondylitic spurring and posterior disc osteophyte complex formation. Severe multilevel right-side d facet arthrosis. No acute fracture or subluxation. Mastoid air cells and middle ear cavities are cl ear. Multilevel central canal and neural foraminal stenosis. Levoscoliosis. No pneumothorax. Unremarkable soft tissues. Calcified plaque of the carotid bulbs. IMPRESSION: No acute fracture or subluxation. ACT 112: Negative or not required by law. The above report was generated using voice recognition software. It may contain grammatical, syntax o r spelling errors. Electronically signed by: Rodger Duke M.D. 05/23/2020 6:38 AM
--- NOTE | 2020-05-23 06:42 | CT Scan Report ---
CT head/brain wo con CLINICAL HISTORY: 89 years-old Female with trauma, coumadin. Acute head trauma status post fall TECHNIQUE: Multiple axial CT images of the head were obtained without contrast. A dose lowering tech nique was utilized adhering to the principles of ALARA. CT DOSE: 853.60 mGy.cm COMPARISON: Head CT 04/14/2020 FINDINGS: No acute intracranial hemorrhage, midline shift, intracranial mass, hydrocephalus, territorial ischem ia or abnormal extra-axial collection. Age-related involutional changes with chronic microvascular is chemic disease. Cerebral vascular calcifications. The calvarium is intact. The paranasal sinuses, mastoid air cells, and middle ear cavities are clear . Small right frontal scalp hematoma, 5.8 x 0.4 cm. Prior bilateral lens repair. IMPRESSION: 1. No acute intracranial abnormality or calvarial fracture. 2. Small right frontal scalp hematoma. ACT 112: Negative or not required by law. The above report was generated using voice recognition software. It may contain grammatical, syntax o r spelling errors. Electronically signed by: Rodger Duke M.D. 05/23/2020 6:40 AM
[2020-05-23 06:47] LABS: Alanine Aminotransferase 81 U/L (12-78); Albumin Globulin Ratio 0.7 (0.9-2); Albumin Level 3.5 gm/dl (3.4-5.0); Alkaline Phosphatase 117 U/L (45-117); BUN Creatinine Ratio 10.9 (10-20); Bilirubin,Total 0.8 mg/dl (0.2-1); Blood Urea Nitrogen 15 mg/dl (7-18); Calcium 8.6 mg/dl (8.5-10.1); Carbon Dioxide 29 mmol/L (21-32); Chloride 108 mmol/L (98-107); Creatinine Clr Calc Pharmacy 21.6 ml/min; Est GFR (African American) 37.9; Est GFR (Non-African American) 32.7; Globulin 4.9 gm/dl (2.5-4.0); Glucose 95 mg/dl (70-99); Lipase 215 U/L (73-393); NT Pro B Type Natriuretic Pept 641 pg/ml (0-1800); Sodium 136 mmol/L (136-145); Total Protein 8.4 gm/dl (6.4-8.2); Troponin I < 0.015 ng/ml (0-0.045)
[2020-05-23 06:50] LABS: Potassium 3.9 mmol/L (3.5-5.1)
[2020-05-23 06:55] LABS: Magnesium 2.6 mg/dl (1.8-2.4)
--- NOTE | 2020-05-23 07:01 | XRay Report ---
XR foot LT min 3V routine HISTORY: 89 years-old Female trauma acute left foot pain status post trauma COMPARISON: 08/21/2018 TECHNIQUE: 3 views of the left foot FINDINGS: Demineralized appearance the bones. 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 Mild spurring of the calcaneus. There is an acute obliquely oriented fracture involving the mid to distal diaphyseal fifth metatarsal without intra-articular extension. Cortical step-off of 2 mm is noted along the lateral m argin. Mild adjacent soft tissue swelling. No additional acute fracture or dislocation. IMPRESSION: Acute obliquely oriented fracture of the fifth metatarsal without significant displacemen t. ACT 112: Negative or not required by law. The above report was generated using voice recognition software. It may contain grammatical, syntax o r spelling errors. Electronically signed by: Rodger Duke M.D. 05/23/2020 6:59 AM
[2020-05-23 07:04] LABS: T4 Free Thyroxine 1.27 ng/dl (0.8-1.6)
--- NOTE | 2020-05-23 07:37 | XRay Report ---
XR pelvis 1-2V routine CLINICAL HISTORY: trauma. Fall. Pelvic pain. COMPARISON STUDY: Left hip 04/15/2020. FINDINGS: No fracture or dislocation within the pelvis or hips. The sacrum appears intact. Mild osteo arthritis within the bilateral hips. Soft tissues are unremarkable. No radiopaque foreign bodies. IMPRESSION: No fracture or dislocation within the pelvis or hips. ACT 112: Negative or not required by law. Electronically signed by: Benson Self M.D. 05/23/2020 7:35 AM
--- NOTE | 2020-05-23 07:38 | XRay Report ---
XR chest 1V portable HISTORY: syncope COMPARISON: Chest 04/14/2020. FINDINGS: No pneumothorax. No pleural effusions. The heart remains borderline enlarged. The left-side d dual-chamber pacemaker. No new focal lung consolidations to suggest pneumonia. No evidence for pulm onary edema. IMPRESSION: No significant change compared to the prior study. No acute process. ACT 112: Negative or not required by law. Electronically signed by: Benson Self M.D. 05/23/2020 7:36 AM
[2020-05-23] MEDS ORDERED: ACETAMINOPHEN 1,000 MG/100 ML VIAL IV STA (09:00)
[2020-05-23 09:04] LABS: Influenza A virus by PCR Negative (Neg); Influenza B virus by PCR Negative (Neg); RSV by PCR Negative (Neg); SARS CoV2 RNA(COVID-19) InHosp NEGATIVE (Negative)
--- NOTE | 2020-05-23 09:23 | History & Physical Report ---
Date of Service May 23, 2020 Assessment & Plan (1) Syncope: This is an 89-year-old female who has significant past medical history of PAF anticoagulated on warfarin, history of TBS status post PPM, chronic diastolic CHF, HTN, HLD, history of SVT, CKD stage III, hypothyroidism, hyperparath yroidism, RLS who presents to ED after sustaining a syncopal episode and trauma to head and foot prior to arrival. Patient with recurrent syncope and recent hospitalization 04/21 At that time was seen and eval by neuro, had EEG, carotid Doppler and pacer interrogation. Her Requip was reduced to twice daily as needed and was started on gabapentin. Her orthostatics were positive during that evaluation. Patient did not have any prodromal symptoms prior to today's event which is concerning. Especially given the fact that she is on warfarin and now sustained a right frontal hematoma. Admit to med telemetry Continue to monitor on telemetry Consult neurology, appreciate their input Interrogate pacemaker Obtain echocardiogram Repeat EEG Orthostatic vital signs Gentle IVF x1 L Neurochecks cycle trop to r/o cv event give 20meq kcl to keep K > 4 Possible UTI Treat empirically with IV Rocephin Afebrile, asymptomatic and WBC WNL so doubt infection Await culture (2) Hematoma of frontal scalp: Secondary to syncope and fall, feels struck head on space heater no open wound Possible mild TBI given headache Neurochecks q4h (3) Fracture of 5th metatarsal: Continue Darco shoe, nonweightbearing to left lower extremity until seen and evaluated by orthopedics Orthopedics consulted As needed Tylenol for pain Consult PT/OT Patient may need rehab (4) Atrial fibrillation: Rate and rhythm controlled on metoprolol, amiodarone and digoxin Continue warfarin for thrombotic control INR subtherapeutic today at 1.5, will give 2 mg of Coumadin today -reevaluate tomorrow for further dosing Home regimen is 2 mg on Wednesdays and 1 mg all other days Daily INR (5) Chronic diastolic CHF (congestive heart failure): Last echocardiogram 2019 which revealed EF greater than 55%, no Daily weights, strict I's and O's Heart healthy diet Monitor volume status Continue metoprolol Repeat echocardiogram to eval for any valvular abnormalities it could be contributing to recurrent syncope (6) Tachy-enid syndrome: S/P PPM Pacemaker interrogation Had recent interrogation in April which revealed a adequately functioning pacemaker (7) HTN (hypertension): Blood pressure elevated mildly this morning, 151/72 although ideal given age of patient Continue metoprolol and amlodipine with parameters Monitor (8) CKD (chronic kidney disease), stage III: Baseline creatinine 1.5-1.6 BUN/creatinine 15 and 1.42 today will give gentle IV fluid x1 L Monitor orthostatics (9) RLS (restless legs syndrome): During recent hospitalization Requip changed to twice daily Started on gabapentin and is currently taking 200 mg daily History of Present Illness Chief Complaint: Syncopal episode with trauma to head/foot prior to arrival. Primary Care Provider: Roly Vogel MD This is an 89-year-old female who has significant past medical history of PAF anticoagulated on warfarin, history of TBS status post PPM, chronic diastolic CHF, HTN, HLD, history of SVT, CKD stage III, hypothyroidism, hyperparathyroidism, RLS who presents to ED after sustaining a syncopal episode and trauma to head and foot prior to arrival. She lives at home with her daughter. She woke up this morning at approximately 2 AM and went downstairs via a chair lift to use the bathroom which sits alongside the kitchen. She then went to sit in her chair in the kitchen, "but I do not know why." Next thing she recalls is being facedown on the floor and feeling a lump on her right forehead. She did not have any presyncopal symptoms and does not recall how she got to the floor. She denied any lightheadedness, dizziness, palpitations, chest pain, shortness of breath or diaphoresis. She called for her daughter but given proximity was unable to hear her. Eventually she did make it to her feet and went back upstairs to be a chair lift to alert her daughter that she had fallen. She was then brought to the ED. She recalls having a similar episode of passing out many years ago but does not recall the result. She also complains of pain to her left foot. Prior to today she had otherwise been in her normal state of health. She denied any recent fever, chills, sweats, chest pain, shortness of breath, palpitations, cough, URI symptoms, nausea, vomiting, abdominal pain, change in her bowel or urinary habits. She does occasionally get diarrhea after meals and therefore takes Imodium for this. She denies any dysuria, increased urgency or frequency with urination, hematuria, melena or hematochezia. She did not take any medications this morning and her last dose of Coumadin was last evening. She currently complains of a slight headache to her right frontal region but denies any photophobia, phonophobia or change in vision. Of significance patient hospitalized 04/2020 secondary to syncope. At that time it was felt related to orthostatic hypotension versus vasovagal. She underwent EEG and seizure was ruled out. CT head revealed no acute findings. She did have a carotid Doppler which showed 50 to 69% stenosis of the left internal carotid otherwise no evidence of hemodynamically significant right internal carotid artery stenosis. She was seen and evaluated by neurology. Her ropinirole for restless leg syndrome was decreased to as needed as it was felt this potentially could be causing dizziness and hypotension. She did have positive orthostatic vital signs. She was also started on gabapentin in favor of the Requip. In ED patient remained hemodynamically stable. Lab abnormalities include creatinine 1.42, mag 2.6, AST 61, ALT 81, total protein 8.4, INR 1.5 and +2 leukocyte esterase, WBC and +1 bacteria in urine. Chest x-ray revealed cardiomegaly but no acute abnormality. Head CT revealed small right frontal scalp hematoma but no acute intracranial abnormality or calvarial fracture. Hematoma 5.8 x 0.4 cm. Left foot x-ray did reveal an acutely oblique oriented fracture of the fifth metatarsal without significant displacement. She was placed in L darco shoe. She received IVF and IV rocephin for possible UTI. Allergies Allergy/AdvReac Type Severity Reaction Status Date / Time ciprofloxacin Allergy Intermediate RASH Verified 05/23/20 04:46 Sulfa (Sulfonamide Allergy Intermediate HIVES, RASH Verified 05/23/20 04:46 Antibiotics) adhesive Allergy Unknown ADHESIVE Verified 05/23/20 04:46 TAPE Cipro Allergy Unknown RASH Verified 10/25/17 05:26 estrogens, conjugated Allergy Unknown SEVERE Verified 05/23/20 04:46 RASH, PAINFUL FROM VAGINAL CREAM tetanus toxoid, adsorbed Allergy Unknown UNKNOWN Verified 05/23/20 04:46 Home Medications Medication Instructions Recorded Confirmed Type digoxin 0.125 mg PO 3XWK 12/25/17 05/23/20 History levothyroxine 50 mcg PO DAILY@0600 12/25/17 05/23/20 History loperamide 2 mg PO DIRECTED PRN MDD 16 12/25/17 05/23/20 History MG/24 HOURS nitroglycerin 0.4 mg SUBLINGUAL DIRECTED PRN 12/25/17 05/23/20 History ondansetron 4 mg TRANSLINGUAL Q6 PRN 12/25/17 05/23/20 History rosuvastatin 10 mg PO HS 12/25/17 05/23/20 History betamethasone dipropionate 1 applic TOPICAL BID PRN 01/02/18 05/23/20 History diphenhydramine-zinc acetate 1 applic TOPICAL QID PRN 01/02/18 05/23/20 History acetaminophen [Tylenol] 650 mg PO Q6H PRN 08/21/18 05/23/20 History amiodarone 200 mg PO DAILY 08/21/18 05/23/20 History hydroxyzine HCl 25 mg PO Q6 PRN 08/21/18 05/23/20 History cholecalciferol (vitamin D3) 50 mcg PO DAILY 05/31/19 05/23/20 History [Vitamin D3] escitalopram oxalate 5 mg PO DAILY 05/31/19 05/23/20 History metoprolol succinate 25 mg PO DAILY 05/31/19 05/23/20 History warfarin 1 mg PO SUMOTUTHFRSA@1600 05/31/19 05/23/20 History amlodipine [Norvasc] 2.5 mg PO HS #30 tab 04/17/20 05/23/20 Rx ropinirole 0.5 mg PO BID PRN #0 tab 04/17/20 05/23/20 Rx ammonium lactate 1 applic TOPICAL BID PRN 05/23/20 05/23/20 History gabapentin 200 mg PO HS 05/23/20 05/23/20 History levocetirizine 5 mg PO DAILY 05/23/20 05/23/20 History warfarin 2 mg PO WE@1600 05/23/20 05/23/20 History Past Med/Surg History Medical History (Updated 05/23/20 @ 13:57 by Salo Bob M.D.) Atrial fibrillation Chronic diastolic CHF (congestive heart failure) CKD (chronic kidney disease), stage III Diverticular disease of colon Dyslipidemia HTN (hypertension) HTN (hypertension) Hypothyroidism Pacemaker RLS (restless legs syndrome) Rosacea SVT (supraventricular tachycardia) Tachy-enid syndrome Surgical History History of carpal tunnel surgery History of cataract surgery History of colon resection History of hysterectomy History of tonsillectomy and adenoidectomy History of total right knee replacement S/P laparoscopic-assisted sigmoidectomy S/P ELISHA (total abdominal hysterectomy) Family History (Updated 05/23/20 @ 09:22 by Liza Castillo PA-C) Other Heart disease Social History Smoking Status: Never smoker Second Hand Exposure: No; Do You Dip or Chew Tobacco: No; Tobacco Cessation Education Requested by Patient: No Hx Alcohol Use: No Hx Substance Use: No Preferred Language: [place]ian Communication Ability: Effective Visual Impairment: No Limitations Dress Finisher Required: No Beliefs That Will Affect Care: None marital status: / Current Living Situation: Family Current Living Situation Comment: LIVES WITH DAUGHTER HERNANDO Other Information That Helps Us Care for You: No Feels Safe at Home: Yes Safety Concerns: Feels Safe At This Time Assistive Devices: Denture - Upper, Denture - Lower, Glasses and Walker Assistive Devices Comment: hearing aids at home Review of Systems Review of Systems: All systems reviewed & are unremarkable except as noted in HPI & below Physical Exam Physical Exam: Constitutional: Elderly, petite, female, sitting up in bed, pleasant, answers all questions appropriately, vitals as above, NAD, Head: Normocephalic, right frontal hematoma noted, tender to palpation Eyes: PERRL, conjunctivae normal, anicteric sclerae ENMT: external ear and nose normal, oropharynx normal Neck: trachea midline, no thyromegaly normal visual inspection Respiratory: normal respiratory effort, lungs clear to auscultation, no wheeze, rales, rhonchi. Normal insp/exp effort, no accessory muscle use Cardiovascular: RRR, 1/6 JUAN noted RUSB, no edema Vessels: no JVD or carotid bruit Chest: normal inspection of chest Abdomen: normal bowel sounds, soft, nontender, no hepatosplenomegaly Musculoskeletal: no cyanosis or clubbing, extremities motor strength 5/5 , left Darco shoe in place Skin: no rashes, warm and dry mild turgor Neurologic: PERRL, EOMI, accommodation nl, no face palsy, no dysarthria CN's II-XI intact bilaterally and moves all extremities Psychiatric: A+Ox3, euthymic affect Lymphatic: no cervical or axillary lymphadenopathy : deferred Results & Data Results & Data ([place]) Vital Signs (Past 12 Hours) Vital Signs Temp Pulse Pulse Resp BP BP Pulse Ox 05/23/20 07:30 61 18 151/72 H 97 05/23/20 06:00 62 20 169/74 H 98 05/23/20 05:48 75 18 164/78 H 97 05/23/20 04:30 60 19 154/72 H 95 05/23/20 04:22 36.6 C 63 18 159/75 H 96 05/23/20 04:17 62 15 159/75 H 97 Diagnostic Findings Foot Xray: IMPRESSION: Acute obliquely oriented fracture of the fifth metatarsal without significant displacement. Head CT: IMPRESSION: 1. No acute intracranial abnormality or calvarial fracture. 2. Small right frontal scalp hematoma. CXR: IMPRESSION: No significant change compared to the prior study. No acute process. Pelvis Xray: IMPRESSION: No fracture or dislocation within the pelvis or hips. Cervical Spine CT: IMPRESSION: No acute fracture or subluxation. Medications Administered Sodium Chloride (Nss 1000ml) 1,000 mls @ 125 mls/hr IV .Q8H [facility] Stop: 06/22/20 04:59 Last Admin: 05/23/20 05:30 Dose: 125 mls/hr Documented by: [id number] Discontinued Medications Ceftriaxone Sodium (Rocephin) 1,000 mg in 50 mls @ 100 mls/hr IV NOW STA Stop: 05/23/20 06:43 Last Admin: 05/23/20 06:23 Dose: 100 mls/hr Documented by: [id number] ECG Rate (beats per minute): 63 Findings: + paced rhythm COVID-19 Results Results COVID-19 Adm Lab Results: RBC 4.13 M/uL (4.2-5.4) L 05/23/20 WBC 7.67 K/uL (4.8-10.8) 05/23/20 Hgb 12.3 g/dL (12.0-16.0) 05/23/20 Hct 38.7 % (37-47) 05/23/20 Plt Count 229 K/uL (130-400) 05/23/20 Neutrophils (%) (Auto) 66.1 % 05/23/20 Lymphocytes (%) (Auto) 19.4 % 05/23/20 Monocytes # (Auto) 0.79 K/uL (0.11-0.59) H 05/23/20 Eosinophils # (Auto) 0.29 K/uL (0-0.5) 05/23/20 Immature Granulocyte % (Auto) 0.1 % 05/23/20 Neutrophils # (Auto) 5.07 K/uL (1.4-6.5) 05/23/20 Lymphocytes # (Auto) 1.49 K/uL (1.2-3.4) 05/23/20 Monocytes # (Auto) 0.79 K/uL (0.11-0.59) H 05/23/20 Eosinophils # (Auto) 0.29 K/uL (0-0.5) 05/23/20 Basophils # (Auto) 0.02 K/uL (0-0.2) 05/23/20 Immature Granulocyte # (Auto) 0.01 K/uL (0.00-0.02) 05/23/20 Na 136 mmol/L (136-145) 05/23/20 K 3.9 mmol/L (3.5-5.1) 05/23/20 Cl 108 mmol/L (98-107) H 05/23/20 CO2 29 mmol/L (21-32) 05/23/20 Anion Gap -1.0 (3-11) L 05/23/20 BUN 15 mg/dl (7-18) 05/23/20 Creatinine 1.42 mg/dl (0.6-1.2) H 05/23/20 BUN/Creatinine Ratio 10.9 (10-20) 05/23/20 Glucose Level 95 mg/dl (70-99) 05/23/20 Ca 8.6 mg/dl (8.5-10.1) 05/23/20 Total Bilirubin 0.8 mg/dl (0.2-1) 05/23/20 AST/SGOT 61 U/L (15-37) H 05/23/20 ALT/SGPT 81 U/L (12-78) H 05/23/20 Alkaline Phosphatase 117 U/L (45-117) 05/23/20 Total Protein 8.4 gm/dl (6.4-8.2) H 05/23/20 Albumin 3.5 gm/dl (3.4-5.0) 05/23/20 Globulin 4.9 gm/dl (2.5-4.0) H 05/23/20 Albumin/Globulin Ratio 0.7 (0.9-2) L 05/23/20 Total CK 131 U/L (26-192) 05/23/20 Troponin I < 0.015 ng/ml (0-0.045) 05/23/20 [id number] Natriuretic Pep 641 pg/ml (0-1800) 05/23/20 INR 1.5 (0.9-1.1) H 05/23/20 COVID-19 PCR NEGATIVE (Negative) 05/23/20 Influenza Virus Type A (PCR) Negative (Neg) 05/23/20 Influenza Virus Type B (PCR) Negative (Neg) 05/23/20 Chest X-Ray 05/23/20 Code Status & VTE Plan Code Status Full Code VTE Prophylaxis Plan Reason for no VTE drug order: Treatment not indicated Reason for no VTE mechanical prophylaxis: Treatment not indicated Supervising Physician Co-Signing Physician Notes Ground-level fall at home Syncope Frontal scalp hematoma Left fifth metatarsal fracture COVID 19 ruled ot History of atrial fibrillation on Coumadin History of chronic diastolic heart failure History of [place]/bradycardia syndrome s/p pacemaker History of CKD stage III History of hypertension History of restless leg syndrome She presented with recurrent episode of fall. She does not recall what led to the fall. She did hit her head and likely passed out. Patient have had similar episodes in the past and recently hospitalized for similar presentation. Will obtain orthostatics. Will obtain transthoracic echo. Continue maintenance IV fluids. Will interrogate pacemaker. Continue ceftriaxone for possible UTI. Orthopedics has been consulted for metatarsal fracture. I performed a history and physical examination of the patient on 05/23/20, including specifically H&P. I have discussed the patient's management with the advanced practitioner. Please refer to the Liza Last note for the documented findings and plan of care. (1) Syncope Syncope type: unspecified Qualified Code(s): R55 - Syncope and collapse
[2020-05-23] MEDS ORDERED: POTASSIUM CHLORIDE CRTAB 20 MEQ TABCR PO STA (09:42)
[2020-05-23] MEDS ORDERED: rOPINIRole HCL 0.25 MG TABLET PO PRN (12:08)
[2020-05-23] MEDS ORDERED: MAGNESIUM HYDROXIDE SUSP 30 ML UDC PO PRN (12:08)
[2020-05-23] MEDS ORDERED: LOPERAMIDE HCL 2 MG CAP PO PRN (12:08)
[2020-05-23] MEDS ORDERED: POLYETHYLENE (MIRALAX) 17 GM PACK PO PRN (12:08)
[2020-05-23] MEDS ORDERED: ALUMINUM/MAGNESIUM SUSP 30 ML UDC PO PRN (12:08)
[2020-05-23] MEDS ORDERED: ONDANSETRON INJ 2 MG/ML 2 ML VIAL IV PRN (12:08)
[2020-05-23] MEDS: METOPROLOL SUCC 25MG EXT REL TAB PO SCH (12:55)
[2020-05-23] MEDS: AMIODARONE 200 MG TAB PO SCH (12:55)
[2020-05-23] MEDS: LEVOTHYROXINE SODIUM 50 MCG TABLET PO SCH (12:55)
--- NOTE | 2020-05-23 13:59 | Orthopedic Consultation ---
Date of Consultation May 23, 2020 Assessment & Plan (1) Fracture of 5th metatarsal: She has a minimally displaced left fifth metatarsal shaft fracture. This should heal well with nonoperative intervention. This will take several months to heal. She is uncomfortable with weightbearing in the hard-soled shoe. We discussed switching her to a fracture boot that would give her some more support and hopefully take some of the pressure off of that fifth metatarsal shaft fracture. She would like to try this. We will order the boot for her. She may weight-bear with this boot in place. She can follow-up with Dr. Adam in orthopedics clinic 1 to 2 weeks after discharge. Please call [facility] at [phone] to make an appointment. History of Present Illness Reason for Consultation: Left foot fracture Attending Physician: Liss Gutierrez MD History of Present Illness Ms. Keith is an 89-year old female who ground-level fall at home during a syncopal episode. She does not remember anything about the fall. She sustained head trauma and left foot pain when she awoke on the floor. She was placed in a hard soled shoe, but this is still fairly uncomfortable to her with attempts at walking. Allergies Allergy/AdvReac Type Severity Reaction Status Date / Time ciprofloxacin Allergy Intermediate RASH Verified 05/23/20 04:46 Sulfa (Sulfonamide Allergy Intermediate HIVES, RASH Verified 05/23/20 04:46 Antibiotics) adhesive Allergy Unknown ADHESIVE Verified 05/23/20 04:46 TAPE Cipro Allergy Unknown RASH Verified 10/25/17 05:26 estrogens, conjugated Allergy Unknown SEVERE Verified 05/23/20 04:46 RASH, PAINFUL FROM VAGINAL CREAM tetanus toxoid, adsorbed Allergy Unknown UNKNOWN Verified 05/23/20 04:46 Home Medications Medication Instructions Recorded Confirmed Type digoxin 0.125 mg PO 3XWK 12/25/17 05/23/20 History levothyroxine 50 mcg PO DAILY@0600 12/25/17 05/23/20 History loperamide 2 mg PO DIRECTED PRN MDD 16 12/25/17 05/23/20 History MG/24 HOURS nitroglycerin 0.4 mg SUBLINGUAL DIRECTED PRN 12/25/17 05/23/20 History ondansetron 4 mg TRANSLINGUAL Q6 PRN 12/25/17 05/23/20 History rosuvastatin 10 mg PO HS 12/25/17 05/23/20 History betamethasone dipropionate 1 applic TOPICAL BID PRN 01/02/18 05/23/20 History diphenhydramine-zinc acetate 1 applic TOPICAL QID PRN 01/02/18 05/23/20 History acetaminophen [Tylenol] 650 mg PO Q6H PRN 08/21/18 05/23/20 History amiodarone 200 mg PO DAILY 08/21/18 05/23/20 History hydroxyzine HCl 25 mg PO Q6 PRN 08/21/18 05/23/20 History cholecalciferol (vitamin D3) 50 mcg PO DAILY 05/31/19 05/23/20 History [Vitamin D3] escitalopram oxalate 5 mg PO DAILY 05/31/19 05/23/20 History metoprolol succinate 25 mg PO DAILY 05/31/19 05/23/20 History warfarin 1 mg PO SUMOTUTHFRSA@1600 05/31/19 05/23/20 History amlodipine [Norvasc] 2.5 mg PO HS #30 tab 04/17/20 05/23/20 Rx ropinirole 0.5 mg PO BID PRN #0 tab 04/17/20 05/23/20 Rx ammonium lactate 1 applic TOPICAL BID PRN 05/23/20 05/23/20 History gabapentin 200 mg PO HS 05/23/20 05/23/20 History levocetirizine 5 mg PO DAILY 05/23/20 05/23/20 History warfarin 2 mg PO WE@1600 05/23/20 05/23/20 History Patient History Medical History (Updated 05/23/20 @ 13:57 by Salo Bob M.D.) Atrial fibrillation Chronic diastolic CHF (congestive heart failure) CKD (chronic kidney disease), stage III Diverticular disease of colon Dyslipidemia HTN (hypertension) HTN (hypertension) Hypothyroidism Pacemaker RLS (restless legs syndrome) Rosacea SVT (supraventricular tachycardia) Tachy-enid syndrome Surgical History History of carpal tunnel surgery History of cataract surgery History of colon resection History of hysterectomy History of tonsillectomy and adenoidectomy History of total right knee replacement S/P laparoscopic-assisted sigmoidectomy S/P ELISHA (total abdominal hysterectomy) Family History (Updated 05/23/20 @ 09:22 by Liza Castillo PA-C) Other Heart disease Social History Smoking Status: Never smoker Second Hand Exposure: No; Do You Dip or Chew Tobacco: No; Tobacco Cessation Education Requested by Patient: No Hx Alcohol Use: No Hx Substance Use: No Preferred Language: Cymraes Communication Ability: Effective Visual Impairment: No Limitations Construction Assistant Required: No Beliefs That Will Affect Care: None marital status: / Current Living Situation: Family Current Living Situation Comment: LIVES WITH DAUGHTER HERNANDO Other Information That Helps Us Care for You: No Feels Safe at Home: Yes Safety Concerns: Feels Safe At This Time Assistive Devices: Denture - Upper, Denture - Lower, Glasses and Walker Assistive Devices Comment: hearing aids at home Physical Exam Physical Exam: Examination left foot reveals some moderate ecchymosis over the lateral aspect of the foot around the fifth metatarsal shaft, just proximal to the MTP joint. Foot is warm well perfused. Motor and sensory is function is intact. No gross deformity. The area is tender to palpation. Results & Data ([facility]) Vital Signs (Past 12 Hours) Vital Signs Temp Pulse Pulse Resp BP BP Pulse Ox 05/23/20 13:00 63 05/23/20 11:30 36.7 C 20 169/74 H 97 05/23/20 11:07 67 20 147/68 H 97 05/23/20 10:10 63 16 153/80 H 97 05/23/20 09:30 83 20 109/87 98 05/23/20 08:30 75 18 130/94 97 05/23/20 07:30 61 18 151/72 H 97 05/23/20 06:00 62 20 169/74 H 98 05/23/20 05:48 75 18 164/78 H 97 05/23/20 04:30 60 19 154/72 H 95 05/23/20 04:22 36.6 C 63 18 159/75 H 96 05/23/20 04:17 62 15 159/75 H 97 Diagnostic Findings Left foot x-rays were reviewed. They show a minimally displaced fracture along the distal aspect of the fifth metatarsal shaft. (1) Fracture of 5th metatarsal Encounter type: initial encounter Fracture type: closed Fracture alignment: displaced Laterality: left Qualified Code(s): S92.352A - Displaced fracture of fifth metatarsal bone, left foot, initial encounter for closed fracture
--- NOTE | 2020-05-23 15:15 | Neurology Consultation ---
Date of Consultation May 23, 2020 Assessment & Plan (1) Fracture of 5th metatarsal: 1. fitting for walking boot- will follow with ortho as outpatient Present on Admission?: Yes (2) Hematoma of frontal scalp: 1. will resolve over time Present on Admission?: Yes (3) Syncope: 1. check orthostatic blood pressures 4. will order an out patient EEG 72 hour for further evaluation of episode 5. she does not drive, no heights, no bathing or swimming alone 6. fall precautions 7. urine culture pending treat to culture if needed. 8.follow up with neurology in 4-6 weeks after the 72 hour EEG is completed. Present on Admission?: Yes Supervising Physician Co-Signing Physician Notes Patient was seen and examined this afternoon. Flight Director at bedside. Discussed with Gracia Michaud PA-C and agree with plan as noted below. A 89 year old woman with known Afib on Coumadin and previous syncope / orthostatic hypotension admitted with unwitnessed LOC. She is amnestic to the event entirely. She hit her head. No tongue biting or incontinence. Noted to be lethargic more recently since starting Gabapentin. On examine she has echymosis to right forehead and left foot is in boot. Tongue is midline with no abrasion. Presumed syncopal episode. - Recommend 72 hour ambulatory EEG - Recommend decreasing gabapentin to 100 mg nightly due to daytime somnolence. - Outpatient neurology follow up after ambulatory EEG Please call with any additional questions or concerns. History of Present Illness Reason for Consultation: recurrent syncope Requesting Physician: Liss Gutierrez MD Attending Physician: Liss Gutierrez MD History of Present Illness Leslie is a an 89 year old female with PMH- PAF anticoagulated on warfarin, TBS status post PPM, chronic diastolic CHF, HTN, HLD, SVT, CKD stage III, hypothyroidism, hyperparathyroidism, RLS who presents to ED after sustaining a syncopal episode and trauma to head and foot prior to arrival. She lives at home with her daughter approximately 2 AM and went downstairs via a chair lift to use the bathroom which sits alongside the kitchen. She sat in her chair in the kitchen, "but I do not know why." Then she remembers being facedown on the floor and feeling a lump on her right forehead. She did not have any presyncopal symptoms and does not recall how she got to the floor. She called for her daughter but didn't hear her. Eventually she did make it to her feet and went back upstairs to on the lift chair to alert her daughter that she had fallen. She recalls having a similar episode of passing out many years ago but does not recall the result. She also complains of pain to her left foot. She does occasionally get diarrhea after meals and therefore takes Imodium for this. She did not take any medications in the morning and her last dose of Coumadin was the night prior She was hospitalized 04/2020 secondary to syncope. At that time it was felt related to orthostatic hypotension versus vasovagal. She underwent EEG and seizure was ruled out. CT head revealed no acute findings. She did have a carotid Doppler which showed 50 to 69% stenosis of the left internal carotid otherwise no evidence of hemodynamically significant right internal carotid artery stenosis. Her ropinirole for restless leg syndrome was decreased to as needed as it was felt this potentially could be causing dizziness and hypotension. She did have positive orthostatic vital signs. She was also started on gabapentin in favor of the Requip. She is doing well and resting comfortably with her daughter bedside. Her daughter has been giving her Norvasc at night 1/2 tab and she thinks this may have cause the drop. She is doing pretty well with the gabapentin and only using requip occasionally during the day. Diana does not remember getting up but after the fall she remembers going up to tell her daughter. denies, CP, SOB ,abdominal pain, +left foot pain. Allergies Allergy/AdvReac Type Severity Reaction Status Date / Time ciprofloxacin Allergy Intermediate RASH Verified 05/23/20 04:46 Sulfa (Sulfonamide Allergy Intermediate HIVES, RASH Verified 05/23/20 04:46 Antibiotics) adhesive Allergy Unknown ADHESIVE Verified 05/23/20 04:46 TAPE Cipro Allergy Unknown RASH Verified 10/25/17 05:26 estrogens, conjugated Allergy Unknown SEVERE Verified 05/23/20 04:46 RASH, PAINFUL FROM VAGINAL CREAM tetanus toxoid, adsorbed Allergy Unknown UNKNOWN Verified 05/23/20 04:46 Home Medications Medication Instructions Recorded Confirmed Type digoxin 0.125 mg PO 3XWK 12/25/17 05/23/20 History levothyroxine 50 mcg PO DAILY@0600 12/25/17 05/23/20 History loperamide 2 mg PO DIRECTED PRN MDD 16 12/25/17 05/23/20 History MG/24 HOURS nitroglycerin 0.4 mg SUBLINGUAL DIRECTED PRN 12/25/17 05/23/20 History ondansetron 4 mg TRANSLINGUAL Q6 PRN 12/25/17 05/23/20 History rosuvastatin 10 mg PO HS 12/25/17 05/23/20 History betamethasone dipropionate 1 applic TOPICAL BID PRN 01/02/18 05/23/20 History diphenhydramine-zinc acetate 1 applic TOPICAL QID PRN 01/02/18 05/23/20 History acetaminophen [Tylenol] 650 mg PO Q6H PRN 08/21/18 05/23/20 History amiodarone 200 mg PO DAILY 08/21/18 05/23/20 History hydroxyzine HCl 25 mg PO Q6 PRN 08/21/18 05/23/20 History cholecalciferol (vitamin D3) 50 mcg PO DAILY 05/31/19 05/23/20 History [Vitamin D3] escitalopram oxalate 5 mg PO DAILY 05/31/19 05/23/20 History metoprolol succinate 25 mg PO DAILY 05/31/19 05/23/20 History warfarin 1 mg PO SUMOTUTHFRSA@1600 05/31/19 05/23/20 History amlodipine [Norvasc] 2.5 mg PO HS #30 tab 04/17/20 05/23/20 Rx ropinirole 0.5 mg PO BID PRN #0 tab 04/17/20 05/23/20 Rx ammonium lactate 1 applic TOPICAL BID PRN 05/23/20 05/23/20 History gabapentin 200 mg PO HS 05/23/20 05/23/20 History levocetirizine 5 mg PO DAILY 05/23/20 05/23/20 History warfarin 2 mg PO WE@1600 05/23/20 05/23/20 History Patient History Medical History (Updated 05/23/20 @ 13:57 by Salo Bob M.D.) Atrial fibrillation Chronic diastolic CHF (congestive heart failure) CKD (chronic kidney disease), stage III Diverticular disease of colon Dyslipidemia HTN (hypertension) HTN (hypertension) Hypothyroidism Pacemaker RLS (restless legs syndrome) Rosacea SVT (supraventricular tachycardia) Tachy-enid syndrome Surgical History History of carpal tunnel surgery History of cataract surgery History of colon resection History of hysterectomy History of tonsillectomy and adenoidectomy History of total right knee replacement S/P laparoscopic-assisted sigmoidectomy S/P ELISHA (total abdominal hysterectomy) Family History (Updated 05/23/20 @ 09:22 by Liza Castillo PA-C) Other Heart disease Social History Smoking Status: Never smoker Second Hand Exposure: No; Do You Dip or Chew Tobacco: No; Tobacco Cessation Education Requested by Patient: No Hx Alcohol Use: No Hx Substance Use: No Preferred Language: Moldovan Communication Ability: Effective Visual Impairment: No Limitations Project Safety Manager Required: No Beliefs That Will Affect Care: None marital status: / Current Living Situation: Family Current Living Situation Comment: LIVES WITH DAUGHTER HERNANDO Other Information That Helps Us Care for You: No Feels Safe at Home: Yes Safety Concerns: Feels Safe At This Time Assistive Devices: Denture - Upper, Denture - Lower, Glasses and Walker Assistive Devices Comment: hearing aids at home Review of Systems Review of Systems: All systems reviewed & are unremarkable except as noted in HPI & below Physical Exam Physical Exam: Physical Exam: Constitutional: appearance nourished healthy Ears, Nose, Mouth and Throat: mucous membranes moist, no injection and skin normal, eyes normal Cardiovascular: normal S-1 and S-2 and regular rate and rhythm Respiratory: CTA Musculoskeletal: no peripheral edema and good distal pulses, left foot walking boot Skin: large hematoma right forehead Eyes: extraocular muscles intact (EOMI) and pupils equal, round and reactive to light (PERRL) NEUROLOGIC EXAMINATION: Mental status: Alert and interactive Oriented location and clinician Oriented to person Speech fluent with no evidence of aphasia Cranial Nerves smile eye brow raise normal Sensory: light touch Coordination: finger to nose Gait/Stance: Posture sitting up in bed Motor: Negative for pronator drift of out stretched arms with eyes closed. Strength: hand flake miller wheat and oats biceps triceps bilaterally 5/5, hip flex 4+/5 bilaterally Results & Data ([facility]) Vital Signs (Past 12 Hours) Vital Signs Temp Pulse Pulse Resp BP BP Pulse Ox 05/23/20 13:00 63 05/23/20 11:30 36.7 C 20 169/74 H 97 05/23/20 11:07 67 20 147/68 H 97 05/23/20 10:10 63 16 153/80 H 97 05/23/20 09:30 83 20 109/87 98 05/23/20 08:30 75 18 130/94 97 05/23/20 07:30 61 18 151/72 H 97 05/23/20 06:00 62 20 169/74 H 98 05/23/20 05:48 75 18 164/78 H 97 05/23/20 04:30 60 19 154/72 H 95 05/23/20 04:22 36.6 C 63 18 159/75 H 96 05/23/20 04:17 62 15 159/75 H 97 Laboratory Results Abnormal lab results 05/23/20 05/23/20 05/23/20 Range/Units 04:45 04:55 04:55 RBC 4.13 L (4.2-5.4) M/uL MCHC 31.8 L (32-36) g/dL RDW Std Deviation 54.2 H (36.4-46.3) fL RDW Coeff of Mino 15.7 H (11.5-14.5) % MPV 10.8 H (7.4-10.4) fL Porter # (Auto) 0.79 H (0.11-0.59) K/uL PT (9.0-12.0) Seconds INR (0.9-1.1) Chloride 108 H (98-107) mmol/L Anion Gap -1.0 L (3-11) Creatinine 1.42 H (0.6-1.2) mg/dl Magnesium (1.8-2.4) mg/dl AST (15-37) U/L ALT 81 H (12-78) U/L Total Protein 8.4 H (6.4-8.2) gm/dl Globulin 4.9 H (2.5-4.0) gm/dl Albumin/Globulin Ratio 0.7 L (0.9-2) TSH 4.860 H (0.300-4.500) uIu/ml Urine Appearance Cloudy A (Clear) Ur Leukocyte Esterase 2+ H (Negative) Urine WBC (Auto) 10-30 H (0-5) /hpf U Epithel Cells (Auto) 20-30 H (0-5) /lpf Urine Bacteria (Auto) 1+ H (Negative) 05/23/20 05/23/20 Range/Units 06:16 06:17 RBC (4.2-5.4) M/uL MCHC (32-36) g/dL RDW Std Deviation (36.4-46.3) fL RDW Coeff of Mino (11.5-14.5) % MPV (7.4-10.4) fL Porter # (Auto) (0.11-0.59) K/uL PT 15.2 H (9.0-12.0) Seconds INR 1.5 H (0.9-1.1) Chloride (98-107) mmol/L Anion Gap (3-11) Creatinine (0.6-1.2) mg/dl Magnesium 2.6 H (1.8-2.4) mg/dl AST 61 H (15-37) U/L ALT (12-78) U/L Total Protein (6.4-8.2) gm/dl Globulin (2.5-4.0) gm/dl Albumin/Globulin Ratio (0.9-2) TSH (0.300-4.500) uIu/ml Urine Appearance (Clear) Ur Leukocyte Esterase (Negative) Urine WBC (Auto) (0-5) /hpf U Epithel Cells (Auto) (0-5) /lpf Urine Bacteria (Auto) (Negative) Diagnostic Findings CT head- skin hematoma no IC bleed x ray foot-cute obliquely oriented fracture of the fifth metatarsal without significant displacement. (1) Fracture of 5th metatarsal Encounter type: initial encounter Fracture alignment: displaced Fracture type: closed Laterality: left Qualified Code(s): S92.352A - Displaced fracture of fifth metatarsal bone, left foot, initial encounter for closed fracture (2) Syncope Syncope type: unspecified Qualified Code(s): R55 - Syncope and collapse
[2020-05-23] MEDS ORDERED: WARFARIN SOD 2 MG TAB PO SCH (16:00)
--- NOTE | 2020-05-23 16:38 | Electrocardiogram Report ---
Test Reason : Blood Pressure : / mmHG Vent. Rate : 063 BPM Atrial Rate : 053 BPM P-R Int : 278 ms QRS Dur : 094 ms QT Int : 444 ms P-R-T Axes : 000 -37 036 degrees QTc Int : 454 ms Poor data quality, interpretation may be adversely affected Atrial-paced rhythm with prolonged AV conduction Left axis deviation Nonspecific T wave abnormality Abnormal ECG When compared with ECG of 14-APR-2020 18:55, No significant change was found Confirmed by Hernando Ruth ([id number]) on 05/23/2020 4:38:35 PM Referred By: REFERRED SELF Confirmed By:Guicho Ruth
[2020-05-23] MEDS: ROSUVASTATIN CALCIUM 10 MG TAB PO SCH (20:49)
[2020-05-23] MEDS ORDERED: GABAPENTIN 100 MG CAP PO SCH ×2 (21:00)
[2020-05-23] MEDS ORDERED: amLODIPine BESYLATE 5 MG TAB PO SCH (21:00)
[2020-05-24] MEDS: ACETAMINOPHEN 325 MG TAB PO PRN (00:09)
[2020-05-24] MEDS: HYDROCORTISONE 2.5% CR 30 GM TUBE EXT PRN (00:18)
[2020-05-24] MEDS: traMADol HCL 50 MG TABLET PO PRN ×2 (01:56→23:46)
[2020-05-24] MEDS: LEVOTHYROXINE SODIUM 50 MCG TABLET PO SCH (05:59)
[2020-05-24 07:39] LABS: Basophils # (auto) 0.02 K/uL (0-0.2); Basophils % (auto) 0.3 %; Hematocrit (blood only) 36.3 % (37-47); Hemoglobin 11.9 g/dL (12.0-16.0); Immature Granulocytes # (auto) 0.02 K/uL (0.00-0.02); Immature Granulocytes % (auto) 0.3 %; Lymphocytes # (auto) 1.24 K/uL (1.2-3.4); Lymphocytes % (auto) 16.6 %; Mean Corpuscular Hemoglobin 30.4 pg (25-34); Mean Corpuscular Hgb Conc 32.8 g/dL (32-36); Mean Corpuscular Volume 92.6 fL (80-100); Mean Platelet Volume 10.8 fL (7.4-10.4); Monocytes # (auto) 0.88 K/uL (0.11-0.59); Monocytes % (auto) 11.8 %; Platelet Count 228 K/uL (130-400); RDW Coefficient of Variation 15.4 % (11.5-14.5); RDW Standard Deviation 52.7 fL (36.4-46.3); Red Blood Count 3.92 M/uL (4.2-5.4); White Blood Count 7.46 K/uL (4.8-10.8)
[2020-05-24 07:47] LABS: INR 1.6 (0.9-1.1)
[2020-05-24] MEDS: ESCITALOPRAM OXALATE 10 MG TAB PO SCH (07:57)
[2020-05-24] MEDS: cefTRIAXone SODIUM 1,000 MG in DEXTROSE 5% 50 ML IV SCH (07:58)
[2020-05-24] MEDS: METOPROLOL SUCC 25MG EXT REL TAB PO SCH (07:58)
[2020-05-24] MEDS: CHOLECALCIFEROL 1,000 UNITS 25 MCG TAB PO SCH (07:58)
[2020-05-24] MEDS: SACCHAROMYCES BOULARDII 250 MG CAP PO SCH (07:58)
[2020-05-24] MEDS: AMIODARONE 200 MG TAB PO SCH (07:58)
[2020-05-24 08:10] LABS: Albumin Level 3.4 gm/dl (3.4-5.0); BUN Creatinine Ratio 10.1 (10-20); Calcium 8.7 mg/dl (8.5-10.1); Creatinine Clr Calc Pharmacy 25.1 ml/min; Est GFR (African American) 45.9; Est GFR (Non-African American) 39.6; Magnesium 2.3 mg/dl (1.8-2.4); Potassium 4.1 mmol/L (3.5-5.1)
[2020-05-24 08:20] LABS: Bilirubin,Total 0.6 mg/dl (0.2-1); Globulin 3.4 gm/dl (2.5-4.0); Total Protein 6.8 gm/dl (6.4-8.2)
[2020-05-24] MEDS ORDERED: lisinopril 2.5 MG TAB PO SCH (09:00)
[2020-05-24] MEDS ORDERED: CHOLECALCIFEROL 1,000 UNITS 25 MCG TAB PO SCH (09:00)
[2020-05-24] MEDS ORDERED: LEVOCETIRIZINE 5 MG SCH (09:00)
--- NOTE | 2020-05-24 10:25 | Electroencephalogram ---
EEG Procedure Note Date of Service May 24, 2020 Start / End Times Start Time: 06:24 End Time: 06:44 Referring Physician Liza Castillo PA-C History An 89 year old woman with recurrent syncope. EEG performed for evaluation of epileptiform activity. Home Medication List Medication Instructions Recorded Confirmed Type digoxin 0.125 mg PO 3XWK 12/25/17 05/23/20 History levothyroxine 50 mcg PO DAILY@0600 12/25/17 05/23/20 History loperamide 2 mg PO DIRECTED PRN MDD 16 12/25/17 05/23/20 History MG/24 HOURS nitroglycerin 0.4 mg SUBLINGUAL DIRECTED PRN 12/25/17 05/23/20 History ondansetron 4 mg TRANSLINGUAL Q6 PRN 12/25/17 05/23/20 History rosuvastatin 10 mg PO HS 12/25/17 05/23/20 History betamethasone dipropionate 1 applic TOPICAL BID PRN 01/02/18 05/23/20 History diphenhydramine-zinc acetate 1 applic TOPICAL QID PRN 01/02/18 05/23/20 History acetaminophen [Tylenol] 650 mg PO Q6H PRN 08/21/18 05/23/20 History amiodarone 200 mg PO DAILY 08/21/18 05/23/20 History hydroxyzine HCl 25 mg PO Q6 PRN 08/21/18 05/23/20 History cholecalciferol (vitamin D3) 50 mcg PO DAILY 05/31/19 05/23/20 History [Vitamin D3] escitalopram oxalate 5 mg PO DAILY 05/31/19 05/23/20 History metoprolol succinate 25 mg PO DAILY 05/31/19 05/23/20 History warfarin 1 mg PO SUMOTUTHFRSA@1600 05/31/19 05/23/20 History amlodipine [Norvasc] 2.5 mg PO HS #30 tab 04/17/20 05/23/20 Rx ropinirole 0.5 mg PO BID PRN #0 tab 04/17/20 05/23/20 Rx ammonium lactate 1 applic TOPICAL BID PRN 05/23/20 05/23/20 History gabapentin 200 mg PO HS 05/23/20 05/23/20 History levocetirizine 5 mg PO DAILY 05/23/20 05/23/20 History warfarin 2 mg PO WE@1600 05/23/20 05/23/20 History Inpatient Medication List Acetaminophen (Acetaminophen 325 Mg Tab) 650 mg PO Q4H PRN PRN Reason: Pain or Fever Stop: 06/22/20 12:07 Last Admin: 05/24/20 00:09 Dose: 650 mg Documented by: [id number] Amiodarone HCl (Amiodarone 200 Mg Tab) 200 mg PO DAILY [facility] Stop: 06/22/20 12:07 Last Admin: 05/24/20 07:58 Dose: 200 mg Documented by: [id number] Admin: 05/23/20 12:55 Dose: 200 mg Documented by: [id number] Escitalopram Oxalate (Escitalopram Oxalate 10 Mg Tab) 5 mg PO DAILY [facility] Stop: 06/23/20 08:59 Last Admin: 05/24/20 07:57 Dose: 5 mg Documented by: [id number] Hydrocortisone (Hydrocortisone 2.5% Cr 30 Gm Tube) 1 appln EXT BID PRN PRN Reason: inflammed skin Stop: 06/22/20 23:53 Last Admin: 05/24/20 00:18 Dose: 1 appln Documented by: [id number] Ceftriaxone Sodium 1,000 mg/ (Dextrose) 50 mls @ 100 mls/hr IV Q24H [facility]; Protocol Stop: 05/29/20 08:59 Last Infusion: 05/24/20 08:43 Dose: 0 mls/hr Documented by: [id number] Admin: 05/24/20 07:58 Dose: 100 mls/hr Documented by: [id number] Levothyroxine Sodium (Levothyroxine Sodium 50 Mcg Tablet) 50 mcg PO DAILY@0600 [facility] Stop: 06/22/20 12:07 Last Admin: 05/24/20 05:59 Dose: 50 mcg Documented by: [id number] Admin: 05/23/20 12:55 Dose: 50 mcg Documented by: [id number] Lisinopril (Lisinopril 2.5 Mg Tab) 2.5 mg PO QAM [facility] Stop: 06/23/20 08:59 Last Admin: 05/24/20 10:06 Dose: 2.5 mg Documented by: [id number] Metoprolol Succinate (Metoprolol Succ 25mg Ext Rel Tab) 25 mg PO DAILY [facility] Stop: 06/22/20 12:07 Last Admin: 05/24/20 07:58 Dose: 25 mg Documented by: [id number] Admin: 05/23/20 12:55 Dose: 25 mg Documented by: [id number] Miscellaneous (Levocetirizine 5 Mg: Order Awaiting Action) 1 ea N/A DAILY JAKI Stop: 06/23/20 08:59 Last Admin: 05/24/20 07:59 Dose: Not Given Documented by: [id number] Rosuvastatin Calcium (Rosuvastatin Calcium 10 Mg Tab) 10 mg PO HS JAKI Stop: 06/22/20 20:59 Last Admin: 05/23/20 20:49 Dose: 10 mg Documented by: [id number] Saccharomyces Boulardii (Saccharomyces Boulardii 250 Mg Cap) 250 mg PO DAILY JAKI Stop: 06/23/20 08:59 Last Admin: 05/24/20 07:58 Dose: 250 mg Documented by: [id number] Tramadol HCl (Tramadol Hcl 50 Mg Tablet) 25 mg PO Q4H PRN PRN Reason: Pain Stop: 06/23/20 01:31 Last Admin: 05/24/20 01:56 Dose: 25 mg Documented by: [id number] Vitamin D (Cholecalciferol 1,000 Units 25 Mcg Tab) 2,000 units PO DAILY JAKI Stop: 06/23/20 08:59 Last Admin: 05/24/20 07:58 Dose: 2,000 units Documented by: [id number] Discontinued Medications Amlodipine Besylate (Amlodipine Besylate 5 Mg Tab) 2.5 mg PO HS JAKI Stop: 06/22/20 20:59 Last Admin: 05/23/20 20:49 Dose: 2.5 mg Documented by: [id number] Gabapentin (Gabapentin 100 Mg Cap) 200 mg PO HS JAKI Stop: 06/22/20 20:59 Last Admin: 05/23/20 20:49 Dose: Not Given Documented by: [id number] Sodium Chloride (Nss 1000ml) 1,000 mls @ 125 mls/hr IV .Q8H JAKI Stop: 06/22/20 04:59 Last Infusion: 05/23/20 18:41 Dose: 0 mls/hr Documented by: [id number] Admin: 05/23/20 05:30 Dose: 125 mls/hr Documented by: [id number] Ceftriaxone Sodium (Rocephin) 1,000 mg in 50 mls @ 100 mls/hr IV NOW STA Stop: 05/23/20 06:43 Last Infusion: 05/23/20 11:30 Dose: 0 mls/hr Documented by: [id number] Admin: 05/23/20 06:23 Dose: 100 mls/hr Documented by: [id number] Acetaminophen (Ofirmev) 1,000 mg in 100 mls @ 400 mls/hr IV NOW STA Stop: 05/23/20 09:14 Last Infusion: 05/23/20 11:30 Dose: 0 mls/hr Documented by: [id number] Admin: 05/23/20 10:10 Dose: 400 mls/hr Documented by: [id number] Sodium Chloride (Nss 1000ml) 1,000 mls @ 75 mls/hr IV .[id number] JAKI Stop: 05/24/20 01:27 Last Infusion: 05/24/20 02:37 Dose: 0 mls/hr Documented by: [id number] Admin: 05/23/20 12:15 Dose: 75 mls/hr Documented by: [id number] Potassium Chloride (Potassium Chloride Crtab 20 Meq Tabcr) 20 meq PO NOW STA Stop: 05/23/20 09:43 Last Admin: 05/23/20 10:10 Dose: 20 meq Documented by: [id number] Ropinirole HCl (Ropinirole Hcl 0.25 Mg Tablet) 0.5 mg PO BID PRN PRN Reason: Restless Leg(S) Stop: 06/22/20 12:07 Last Admin: 05/23/20 12:56 Dose: 0.5 mg Documented by: [id number] Warfarin Sodium (Warfarin Sod 2 Mg Tab) 2 mg PO DAILY@1600 [facility] Stop: 05/23/20 16:01 Last Admin: 05/23/20 16:16 Dose: 2 mg Documented by: [id number] Description This is a 21 electrode EEG with a single channel dedicated to limited EKG. The electrodes were placed in accordance with the International 10-20 system. REPORT: At the onset of the EEG the patient is awake. The background is symmetric and well organized. There is a normal anterior to posterior gradient. The posterior dominant rhythm is 9-10 Hz. Drowsiness is characterized by increased theta activity and decreased myogenic artifact. No Stage II sleep transients are recorded. Photic stimulation does not induce any abnormalities. IMPRESSION: This is a normal awake and drowsy routine EEG. No focal slowing or epileptiform activity is recorded.
--- NOTE | 2020-05-24 15:59 | Electrocardiogram Report ---
Test Reason : Blood Pressure : / mmHG Vent. Rate : 063 BPM Atrial Rate : 063 BPM P-R Int : 270 ms QRS Dur : 098 ms QT Int : 444 ms P-R-T Axes : 000 -39 029 degrees QTc Int : 454 ms Poor data quality, interpretation may be adversely affected Atrial-paced rhythm with prolonged AV conduction Left axis deviation Abnormal ECG When compared with ECG of 23-MAY-2020 04:19, Nonspecific T wave abnormality no longer evident in Anterolateral leads Confirmed by Hernando Ruth ([id number]) on 05/24/2020 3:59:24 PM Referred By: REFERRED SELF Confirmed By:Guicho Ruth
[2020-05-24] MEDS ORDERED: DIGOXIN 0.125 MG TAB PO SCH (16:00)
--- NOTE | 2020-05-24 18:49 | Hospitalist Progress Note ---
Date of Service May 24, 2020 Assessment & Plan (1) Syncope: Patient is an 89 yr female with H/O P.Afib on warfarin, history of TBS status post PPM, chronic diastolic CHF, HTN, HLD, history of SVT, CKD stage III, hypothyroidism, hyperparathyroidism, RLS who presents to ED after sustaining a syncopal episode and trauma to head and foot prior to arrival. Recurrent Syncope Fall secondary to Above -CT Head:No acute intracranial abnormality or calvarial fracture. Small right frontal scalp hematoma. -EEG:This is a normal awake and drowsy routine EEG. No focal slowing or epileptiform activity is recorded. -ECHO: Normal LV size, mild concentric LVH. EF 60 to 65%. Grade 2 diastolic d ysfunction. Mild tricuspid regurgitation, aortic valvular sclerosis mild, without significant aortic valvular stenosis -Positive orthostatic hypotension -Recent Carotid USD:50-69% stenosis left internal carotid artery -Recently had Pacemaker Interrogation -Negative Troponin -Continue to monitor on Tele -Received gentle IV Fluids -Discontinue Amlodipine -Decrease ropinirole, gabapentin to once daily at bedtime -Appreciate neurology input -Fall precautions -Needs outpatient 72-hour EEG -Needs follow-up with neurology in 4 to 6 weeks upon discharge Possible UTI Urine Cx:pending Continue empiric IV Rocephin (2) Hematoma of frontal scalp: Secondary to syncope and fall Possible mild TBI given headache Neuro checks q4h (3) Fracture of 5th metatarsal: Secondary to fall Foot X ray:Acute obliquely oriented fracture of the fifth metatarsal without significant displacement. Appreciate orthopedics input Nonoperative management Needs follow-up with orthopedics Dr. Adam in 1 to 2 weeks upon discharge Continue PT/OT : Needs Rehab placement (4) Atrial fibrillation: Subtherapeutic INR Continue metoprolol, amiodarone, digoxin Continue Coumadin Monitor INR (5) Chronic diastolic CHF (congestive heart failure): Echo as above Daily weights, strict I's and O's Monitor volume status Continue home meds (6) Tachy-enid syndrome: S/P PPM Pacemaker interrogation Recent interrogation in April (7) HTN (hypertension): BP labile Discontinue Amlodipine as orthostatic hypotension Continue metoprolol Monitor BP Consider low dose lisinopril if persistent high BP (8) CKD (chronic kidney disease), stage III: Baseline Cr:1.5-1.6 Cr at baseline monitor (9) RLS (restless legs syndrome): Decreased Requip to QHS Decreased Gabapentin to 100mg QHS DVT Px: Coumadin Code Status Full Code Disposition Rehab as able Admission and Anticipated Discharge Date Admission Date: May 23, 2020 Subjective Patient is seen and examined at bedside Complains of headache, left foot pain especially with movement Denies chest pain, dizziness, dyspnea, nausea, abdominal pain Offers no other complaints Review of Systems Review of Systems: All systems reviewed & are unremarkable except as noted in HPI & below Physical Exam Physical Exam: Physical Exam: Vitals signs as noted above General Appearance:Moderately built and nourished, no apparent distress, Elderly Head: normocephalic, +Traumatic, Right forehead ecchymosis, tender Eyes: normal inspection, EOMI, PERRL Neck: supple, Trachea midline Respiratory/Chest: Normal breath sounds, CTA Cardiovascular: S1, S2, No murmur Abdomen/GI:Soft, Non tender, Bowel sounds present Extremities/Musculoskelatal:normal inspection, Left foot-laterally +swelling, ecchymosis, tender Neurologic/Psych:AAOX3, grossly no focal neurological deficits Skin: normal color, warm Results & Data Results & Data ([facility]) Vital Signs (Past 12 Hours) Vital Signs Temp Pulse Pulse Resp BP Pulse Ox 05/24/20 16:54 70 05/24/20 16:00 65 05/24/20 15:26 19 114/54 L 94 05/24/20 11:38 36.7 C 65 18 138/71 96 05/24/20 08:00 60 05/24/20 07:57 36.5 C 63 18 154/73 H 95 Laboratory Results Short CBC 05/24/20 Range/Units 07:07 WBC 7.46 (4.8-10.8) K/uL Hgb 11.9 L (12.0-16.0) g/dL Hct 36.3 L (37-47) % Plt Count 228 (130-400) K/uL BMP 05/24/20 07:07 Sodium 135 L Potassium 4.1 Chloride 106 Carbon Dioxide 27 BUN 12 Creatinine 1.21 H Glucose 85 Calcium 8.7 Liver Function 05/24/20 Range/Units 07:07 Total Bilirubin 0.6 (0.2-1) mg/dl AST 55 H (15-37) U/L ALT 63 (12-78) U/L Alkaline Phosphatase 94 (45-117) U/L Albumin 3.4 (3.4-5.0) gm/dl (1) Syncope Syncope type: unspecified Qualified Code(s): R55 - Syncope and collapse (2) Fracture of 5th metatarsal Encounter type: initial encounter Fracture type: closed Fracture alignment: displaced Laterality: left Qualified Code(s): S92.352A - Displaced fracture of fifth metatarsal bone, left foot, initial encounter for closed fracture
[2020-05-24] MEDS: WARFARIN SOD 2 MG TAB PO SCH (19:17)
[2020-05-24] MEDS: ROSUVASTATIN CALCIUM 10 MG TAB PO SCH (19:53)
[2020-05-24] MEDS ORDERED: GABAPENTIN 100 MG CAP PO SCH (21:00)
[2020-05-25] MEDS: LEVOTHYROXINE SODIUM 50 MCG TABLET PO SCH (06:00)
[2020-05-25] MEDS: SACCHAROMYCES BOULARDII 250 MG CAP PO SCH (08:02)
[2020-05-25] MEDS: ESCITALOPRAM OXALATE 10 MG TAB PO SCH (08:02)
[2020-05-25] MEDS: METOPROLOL SUCC 25MG EXT REL TAB PO SCH (08:05)
[2020-05-25] MEDS: AMIODARONE 200 MG TAB PO SCH (08:10)
[2020-05-25] MEDS: CHOLECALCIFEROL 1,000 UNITS 25 MCG TAB PO SCH (08:14)
[2020-05-25] MEDS: cefTRIAXone SODIUM 1,000 MG in DEXTROSE 5% 50 ML IV SCH (08:24)
[2020-05-25] MEDS: ACETAMINOPHEN 325 MG TAB PO PRN ×2 (08:36→14:42)
[2020-05-25 08:54] LABS: INR 1.7 (0.9-1.1); Prothrombin Time 16.7 Seconds (9.0-12.0)
[2020-05-25 08:59] LABS: Hematocrit (blood only) 36.2 % (37-47); Hemoglobin 11.9 g/dL (12.0-16.0); Mean Corpuscular Hemoglobin 30.2 pg (25-34); Mean Corpuscular Hgb Conc 32.9 g/dL (32-36); Mean Corpuscular Volume 91.9 fL (80-100); Mean Platelet Volume 11.2 fL (7.4-10.4); Platelet Count 256 K/uL (130-400); RDW Coefficient of Variation 15.4 % (11.5-14.5); RDW Standard Deviation 52.5 fL (36.4-46.3); Red Blood Count 3.94 M/uL (4.2-5.4); White Blood Count 7.95 K/uL (4.8-10.8)
[2020-05-25 09:19] LABS: BUN Creatinine Ratio 11.7 (10-20); Calcium 8.6 mg/dl (8.5-10.1); Creatinine Clr Calc Pharmacy 22.6 ml/min; Est GFR (African American) 39.2; Est GFR (Non-African American) 33.8; Potassium 4.1 mmol/L (3.5-5.1)
--- NOTE | 2020-05-25 13:16 | Electrocardiogram Report ---
Test Reason : Blood Pressure : / mmHG Vent. Rate : 064 BPM Atrial Rate : 063 BPM P-R Int : 262 ms QRS Dur : 094 ms QT Int : 456 ms P-R-T Axes : 000 -50 030 degrees QTc Int : 470 ms Atrial-paced rhythm with prolonged AV conduction Left anterior fascicular block Abnormal ECG When compared with ECG of 24-MAY-2020 05:15, No significant change was found Confirmed by Jaison Monet ([id number]) on 05/25/2020 1:16:20 PM Referred By: REFERRED SELF Confirmed By:Jaison Monet
[2020-05-25] MEDS: WARFARIN SOD 2 MG TAB PO SCH (15:23)
--- NOTE | 2020-05-25 17:08 | Hospitalist Progress Note ---
Date of Service May 25, 2020 Assessment & Plan (1) Syncope: Patient is an 89 yr female with H/O P.Afib on warfarin, history of TBS status post PPM, chronic diastolic CHF, HTN, HLD, history of SVT, CKD stage III, hypothyroidism, hyperparathyroidism, RLS who presents to ED after sustaining a syncopal episode and trauma to head and foot prior to arrival. Recurrent Syncope Fall secondary to Above -CT Head:No acute intracranial abnormality or calvarial fracture. Small right frontal scalp hematoma. -EEG:This is a normal awake and drowsy routine EEG. No focal slowing or epileptiform activity is recorded. -ECHO: Normal LV size, mild concentric LVH. EF 60 to 65%. Grade 2 diastolic d ysfunction. Mild tricuspid regurgitation, aortic valvular sclerosis mild, without significant aortic valvular stenosis -Positive orthostatic hypotension -Recent Carotid USD:50-69% stenosis left internal carotid artery -Recently had Pacemaker Interrogation -Negative Troponin -Continue to monitor on Tele -Received gentle IV Fluids -Discontinue Amlodipine -Decrease ropinirole, gabapentin to once daily at bedtime -Appreciate neurology input -Fall precautions -Needs outpatient 72-hour EEG -Needs follow-up with neurology in 4 to 6 weeks upon discharge PT OT recommends rehab--patient currently prefers to be discharged home with home health UTI: ruled out Urine Cx: Corynebacterium species Discontinue IV Rocephin (2) Hematoma of frontal scalp: Secondary to syncope and fall Possible mild TBI given headache Neuro checks q4h (3) Fracture of 5th metatarsal: Secondary to fall Foot X ray:Acute obliquely oriented fracture of the fifth metatarsal without significant displacement. Appreciate orthopedics input Nonoperative management Needs follow-up with orthopedics Dr. Adam in 1 to 2 weeks upon discharge Continue PT/OT : Needs Rehab placement (4) Atrial fibrillation: Subtherapeutic INR Continue metoprolol, amiodarone, digoxin Continue Coumadin Monitor INR:1.5>1.7 (5) Chronic diastolic CHF (congestive heart failure): Echo as above Daily weights, strict I's and O's Monitor volume status Continue home meds (6) Tachy-enid syndrome: S/P PPM Pacemaker interrogation Recent interrogation in April (7) HTN (hypertension): BP labile Discontinue Amlodipine as orthostatic hypotension Continue metoprolol Monitor BP Consider low dose lisinopril if persistent high BP (8) CKD (chronic kidney disease), stage III: Baseline Cr:1.5-1.6 Cr at baseline monitor (9) RLS (restless legs syndrome): Decreased Requip to QHS Decreased Gabapentin to 100mg QHS DVT Px: Coumadin Code Status Full Code Disposition Refuses rehab placement Admission and Anticipated Discharge Date Admission Date: May 24, 2020 Subjective Patient is seen and examined at bedside Denies headache today Scalp hematoma less painful today Continues to have left foot pain Currently not interested in rehab placement Denies chest pain, dizziness, dyspnea, nausea, abdominal pain Review of Systems Review of Systems: All systems reviewed & are unremarkable except as noted in HPI & below Physical Exam Physical Exam: Physical Exam: Vitals signs as noted above General Appearance:Moderately built and nourished, no apparent distress, Elderly Head: normocephalic, +Traumatic, Right forehead ecchymosis, tender Eyes: normal inspection, EOMI Neck: supple, Trachea midline Respiratory/Chest: Normal breath sounds, CTA Cardiovascular: S1, S2, No murmur Abdomen/GI:Soft, Non tender, Bowel sounds present Extremities/Musculoskelatal:normal inspection, Left foot-laterally +swelling, ecchymosis, tender Neurologic/Psych:AAOX3, grossly no focal neurological deficits Skin: normal color, warm Results & Data Results & Data ([facility]) Vital Signs (Past 12 Hours) Vital Signs Temp Pulse Pulse Resp BP BP Pulse Ox 05/25/20 14:20 71 05/25/20 11:13 36.3 C L 60 18 106/63 96 05/25/20 09:33 129/63 05/25/20 07:32 36.9 C 67 18 91/56 L 96 05/25/20 07:23 60 Laboratory Results Short CBC 05/25/20 Range/Units 07:49 WBC 7.95 (4.8-10.8) K/uL Hgb 11.9 L (12.0-16.0) g/dL Hct 36.2 L (37-47) % Plt Count 256 (130-400) K/uL BMP 05/25/20 07:49 Sodium 136 Potassium 4.1 Chloride 105 Carbon Dioxide 26 BUN 16 Creatinine 1.38 H Glucose 73 Calcium 8.6 (1) Syncope Syncope type: unspecified Qualified Code(s): R55 - Syncope and collapse (2) Fracture of 5th metatarsal Encounter type: initial encounter Fracture type: closed Fracture alignment: displaced Laterality: left Qualified Code(s): S92.352A - Displaced fracture of fifth metatarsal bone, left foot, initial encounter for closed fracture
[2020-05-25] MEDS: HYDROCORTISONE 2.5% CR 30 GM TUBE EXT PRN (18:11)
[2020-05-25] MEDS ORDERED: diphenhydrAMINE HCl 12.5 MG/5 ML UDC PO ONE (18:29)
[2020-05-25] MEDS ORDERED: predniSONE 10 MG TABLET PO ONE (18:29)
[2020-05-25] MEDS: GABAPENTIN 100 MG CAP PO SCH (19:59)
[2020-05-25] MEDS: rOPINIRole HCL 0.25 MG TABLET PO PRN (20:00)
[2020-05-25] MEDS: ROSUVASTATIN CALCIUM 10 MG TAB PO SCH (20:00)
[2020-05-26] MEDS: HYDROCORTISONE 2.5% CR 30 GM TUBE EXT PRN (05:40)
[2020-05-26] MEDS: LEVOTHYROXINE SODIUM 50 MCG TABLET PO SCH (05:40)
[2020-05-26 06:20] LABS: INR 2.4 (0.9-1.1); Prothrombin Time 22.4 Seconds (9.0-12.0)
[2020-05-26 06:48] LABS: BUN Creatinine Ratio 14.1 (10-20); Calcium 8.6 mg/dl (8.5-10.1); Creatinine Clr Calc Pharmacy 21.2 ml/min; Est GFR (African American) 36.3; Est GFR (Non-African American) 31.3; Potassium 4.3 mmol/L (3.5-5.1)
[2020-05-26] MEDS: ESCITALOPRAM OXALATE 10 MG TAB PO SCH (08:47)
[2020-05-26] MEDS: SACCHAROMYCES BOULARDII 250 MG CAP PO SCH (08:47)
[2020-05-26] MEDS: CHOLECALCIFEROL 1,000 UNITS 25 MCG TAB PO SCH (08:48)
[2020-05-26] MEDS: METOPROLOL SUCC 25MG EXT REL TAB PO SCH (08:48)
[2020-05-26] MEDS: AMIODARONE 200 MG TAB PO SCH (08:48)
[2020-05-26] MEDS: ACETAMINOPHEN 325 MG TAB PO PRN (14:46)
[2020-05-26] MEDS ORDERED: WARFARIN SOD 1 MG TAB PO SCH (16:00)
--- NOTE | 2020-05-26 18:31 | Hospitalist Progress Note ---
Date of Service May 26, 2020 Assessment & Plan (1) Syncope: Patient is an 89 yr female with H/O P.Afib on warfarin, history of TBS status post PPM, chronic diastolic CHF, HTN, HLD, history of SVT, CKD stage III, hypothyroidism, hyperparathyroidism, RLS who presents to ED after sustaining a syncopal episode and trauma to head and foot prior to arrival. Recurrent Syncope Fall secondary to Above -CT Head:No acute intracranial abnormality or calvarial fracture. Small right frontal scalp hematoma. -EEG:This is a normal awake and drowsy routine EEG. No focal slowing or epileptiform activity is recorded. -ECHO: Normal LV size, mild concentric LVH. EF 60 to 65%. Grade 2 diastolic d ysfunction. Mild tricuspid regurgitation, aortic valvular sclerosis mild, without significant aortic valvular stenosis -Positive orthostatic hypotension -Recent Carotid USD:50-69% stenosis left internal carotid artery -Recently had Pacemaker Interrogation -Negative Troponin -Continue to monitor on Tele -Received gentle IV Fluids -Discontinue Amlodipine -Decrease ropinirole, gabapentin to once daily at bedtime -Appreciate neurology input -Fall precautions -Needs outpatient 72-hour EEG -Needs follow-up with neurology in 4 to 6 weeks upon discharge PT OT recommends rehab--patient currently prefers to be discharged home with home health Continue current management UTI: ruled out Urine Cx: Corynebacterium species Discontinue IV Rocephin (2) Hematoma of frontal scalp: Secondary to syncope and fall Possible mild TBI given headache Neuro checks q4h (3) Fracture of 5th metatarsal: Secondary to fall Foot X ray:Acute obliquely oriented fracture of the fifth metatarsal without significant displacement. Appreciate orthopedics input Nonoperative management Needs follow-up with orthopedics Dr. Adam in 1 to 2 weeks upon discharge Continue PT/OT : Needs Rehab placement Patient refuses rehab placement Plan to discharge when orthotic boot arranged (4) Atrial fibrillation: Subtherapeutic INR Continue metoprolol, amiodarone, digoxin Continue Coumadin Monitor INR:1.5>1.7>2.4 Decrease Coumadin to 1 mg today (5) Chronic diastolic CHF (congestive heart failure): Echo as above Daily weights, strict I's and O's Monitor volume status Continue home meds (6) Tachy-enid syndrome: S/P PPM Pacemaker interrogation Recent interrogation in April (7) HTN (hypertension): BP labile Discontinue Amlodipine as orthostatic hypotension Continue metoprolol Monitor BP Consider low dose lisinopril if persistent high BP (8) CKD (chronic kidney disease), stage III: Baseline Cr:1.5-1.6 Cr at baseline monitor (9) RLS (restless legs syndrome): Decreased Requip to QHS Decreased Gabapentin to 100mg QHS DVT Px: Coumadin Code Status Full Code Disposition Refuses rehab placement Plan to discharge home with home Admission and Anticipated Discharge Date Admission Date: May 24, 2020 Subjective Patient is seen and examined at bedside No significant left foot pain today Waiting for orthotic boot Plans to return home with home health Minimal scalp hematoma pain Denies chest pain, dizziness, dyspnea, nausea, abdominal pain Review of Systems Review of Systems: All systems reviewed & are unremarkable except as noted in HPI & below Physical Exam Physical Exam: Physical Exam: Vitals signs as noted above General Appearance:Moderately built and nourished, no apparent distress, Elderly Head: normocephalic, +Traumatic, Right forehead ecchymosis, tender Eyes: normal inspection, EOMI Neck: supple, Trachea midline Respiratory/Chest: Normal breath sounds, CTA Cardiovascular: S1, S2, No murmur Abdomen/GI:Soft, Non tender, Bowel sounds present Extremities/Musculoskelatal:normal inspection, Left foot-laterally +swelling, ecchymosis, tender Neurologic/Psych:AAOX3, grossly no focal neurological deficits Skin: normal color, warm Results & Data Results & Data ([facility]) Vital Signs (Past 12 Hours) Vital Signs Temp Pulse Resp BP Pulse Ox 05/26/20 15:11 36.8 C 72 16 143/66 H 94 05/26/20 07:20 36.7 C 69 16 113/62 94 Laboratory Results [facility] 05/26/20 05:30 Sodium 135 L Potassium 4.3 Chloride 106 Carbon Dioxide 26 BUN 21 H Creatinine 1.47 H Glucose 122 H Calcium 8.6 (1) Syncope Syncope type: unspecified Qualified Code(s): R55 - Syncope and collapse (2) Fracture of 5th metatarsal Encounter type: initial encounter Fracture type: closed Fracture alignment: displaced Laterality: left Qualified Code(s): S92.352A - Displaced fracture of fifth metatarsal bone, left foot, initial encounter for closed fracture
[2020-05-26] MEDS: ROSUVASTATIN CALCIUM 10 MG TAB PO SCH (19:41)
[2020-05-26] MEDS: GABAPENTIN 100 MG CAP PO SCH (19:41)
[2020-05-27] MEDS: rOPINIRole HCL 0.25 MG TABLET PO PRN (01:15)
[2020-05-27] MEDS: LEVOTHYROXINE SODIUM 50 MCG TABLET PO SCH (05:28)
[2020-05-27 07:34] VITALS: BP 112/66; TEMP 98.4; O2SAT 96
[2020-05-27 07:54] LABS: INR 3.2 (0.9-1.1); Prothrombin Time 29.8 Seconds (9.0-12.0)
[2020-05-27 08:11] LABS: BUN Creatinine Ratio 14.2 (10-20); Calcium 8.6 mg/dl (8.5-10.1); Creatinine Clr Calc Pharmacy 20.2 ml/min; Est GFR (African American) 34.3; Est GFR (Non-African American) 29.6; Potassium 3.9 mmol/L (3.5-5.1)
[2020-05-27] MEDS: METOPROLOL SUCC 25MG EXT REL TAB PO SCH (08:53)
[2020-05-27] MEDS: ESCITALOPRAM OXALATE 10 MG TAB PO SCH (08:53)
[2020-05-27] MEDS: CHOLECALCIFEROL 1,000 UNITS 25 MCG TAB PO SCH (08:54)
[2020-05-27] MEDS: AMIODARONE 200 MG TAB PO SCH (08:54)
[2020-05-27] MEDS: SACCHAROMYCES BOULARDII 250 MG CAP PO SCH (08:54)
--- NOTE | 2020-05-27 12:52 | Hospitalist Progress Note ---
Date of Service May 27, 2020 Assessment & Plan (1) Syncope: Patient is an 89 yr female with H/O P.Afib on warfarin, history of TBS status post PPM, chronic diastolic CHF, HTN, HLD, history of SVT, CKD stage III, hypothyroidism, hyperparathyroidism, RLS who presents to ED after sustaining a syncopal episode and trauma to head and foot prior to arrival. Recurrent Syncope Fall secondary to Above -CT Head:No acute intracranial abnormality or calvarial fracture. Small right frontal scalp hematoma. -EEG:This is a normal awake and drowsy routine EEG. No focal slowing or epileptiform activity is recorded. -ECHO: Normal LV size, mild concentric LVH. EF 60 to 65%. Grade 2 diastolic d ysfunction. Mild tricuspid regurgitation, aortic valvular sclerosis mild, without significant aortic valvular stenosis -Positive orthostatic hypotension -Recent Carotid USD:50-69% stenosis left internal carotid artery -Recently had Pacemaker Interrogation -Negative Troponin -Continue to monitor on Tele -Received gentle IV Fluids -Discontinue Amlodipine -Decrease ropinirole, gabapentin to once daily at bedtime -Appreciate neurology input -Fall precautions -Needs outpatient 72-hour EEG -Needs follow-up with neurology in 4 to 6 weeks upon discharge PT OT recommends rehab--patient currently prefers to be discharged home with home health UTI: ruled out Urine Cx: Corynebacterium species Discontinue IV Rocephin (2) Hematoma of frontal scalp: Secondary to syncope and fall Possible mild TBI given headache Neuro checks q4h (3) Fracture of 5th metatarsal: Secondary to fall Foot X ray:Acute obliquely oriented fracture of the fifth metatarsal without significant displacement. Appreciate orthopedics input Nonoperative management Needs follow-up with orthopedics Dr. Adam in 1 to 2 weeks upon discharge Continue PT/OT : Needs Rehab placement Patient refuses rehab placement Needs low tide walking boot arranged prior to discharge (4) Atrial fibrillation: Subtherapeutic INR Continue metoprolol, amiodarone, digoxin Monitor INR:1.5>1.7>2.4>3.2 Hold Coumadin today (5) Chronic diastolic CHF (congestive heart failure): Echo as above Daily weights, strict I's and O's Monitor volume status Continue home meds (6) Tachy-enid syndrome: S/P PPM Pacemaker interrogation Recent interrogation in April (7) HTN (hypertension): BP labile Discontinue Amlodipine as orthostatic hypotension Continue metoprolol Monitor BP Consider low dose lisinopril if persistent high BP (8) CKD (chronic kidney disease), stage III: Baseline Cr:1.5-1.6 Cr at baseline monitor (9) RLS (restless legs syndrome): Decreased Requip to QHS Decreased Gabapentin to 100mg QHS DVT Px: Coumadin Code Status Full Code Disposition Refuses rehab placement Plan to discharge home with home Admission and Anticipated Discharge Date Admission Date: May 24, 2020 Subjective Patient is seen and examined at bedside Left foot pain is controlled Eager to get discharged Waiting for Orthotic boot Denies chest pain, dizziness, dyspnea, nausea, abdominal pain Review of Systems Review of Systems: All systems reviewed & are unremarkable except as noted in HPI & below Physical Exam Physical Exam: Physical Exam: Vitals signs as noted above General Appearance:Moderately built and nourished, no apparent distress, Elderly Head: normocephalic, +Traumatic, Right forehead ecchymosis, tender Eyes: normal inspection, EOMI Neck: supple, Trachea midline Respiratory/Chest: Normal breath sounds, CTA Cardiovascular: S1, S2, No murmur Abdomen/GI:Soft, Non tender, Bowel sounds present Extremities/Musculoskelatal:normal inspection, Left foot-laterally +swelling, ecchymosis, tender Neurologic/Psych:AAOX3, grossly no focal neurological deficits Skin: normal color, warm Results & Data Results & Data ([facility]) Vital Signs (Past 12 Hours) Vital Signs Temp Pulse Resp BP Pulse Ox 05/27/20 07:32 36.9 C 62 18 112/66 96 Laboratory Results [facility] 05/27/20 07:16 Sodium 136 Potassium 3.9 Chloride 105 Carbon Dioxide 26 BUN 22 H Creatinine 1.54 H Glucose 88 Calcium 8.6 (1) Syncope Syncope type: unspecified Qualified Code(s): R55 - Syncope and collapse (2) Fracture of 5th metatarsal Encounter type: initial encounter Fracture type: closed Fracture alignment: displaced Laterality: left Qualified Code(s): S92.352A - Displaced fracture of fifth metatarsal bone, left foot, initial encounter for closed fracture
--- NOTE | 2020-05-27 14:08 | Discharge Summary ---
Date of Service May 27, 2020 Admission HPI Per Admitting Provider This is an 89-year-old female who has significant past medical history of PAF anticoagulated on warfarin, history of TBS status post PPM, chronic diastolic CHF, HTN, HLD, history of SVT, CKD stage III, hypothyroidism, h yperparathyroidism, RLS who presents to ED after sustaining a syncopal episode and trauma to head and foot prior to arrival. She lives at home with her daughter. She woke up this morning at approximately 2 AM and went downstairs via a chair lift to use the bathroom which sits alongside the kitchen. She then went to sit in her chair in the kitchen, "but I do not know why." Next thing she recalls is being facedown on the floor and feeling a lump on her right forehead. She did not have any presyncopal symptoms and does not recall how she got to the floor. She denied any lightheadedness, dizziness, palpitations, chest pain, shortness of breath or diaphoresis. She called for her daughter but given proximity was unable to hear her. Eventually she did make it to her feet and went back upstairs to be a chair lift to alert her daughter that she had fallen. She was then brought to the ED. She recalls having a similar episode of passing out many years ago but does not recall the result. She also complains of pain to her left foot. Prior to today she had otherwise been in her normal state of health. She denied any recent fever, chills, sweats, chest pain, shortness of breath, palpitations, cough, URI symptoms, nausea, vomiting, abdominal pain, change in her bowel or urinary habits. She does occasionally get diarrhea after meals and therefore takes Imodium for this. She denies any dysuria, increased urgency or frequency with urination, hematuria, melena or hematochezia. She did not take any medications this morning and her last dose of Coumadin was last evening. She currently complains of a slight headache to her right frontal region but denies any photophobia, phonophobia or change in vision. Of significance patient hospitalized 04/2020 secondary to syncope. At that time it was felt related to orthostatic hypotension versus vasovagal. She underwent EEG and seizure was ruled out. CT head revealed no acute findings. She did have a carotid Doppler which showed 50 to 69% stenosis of the left internal carotid otherwise no evidence of hemodynamically significant right internal carotid artery stenosis. She was seen and evaluated by neurology. Her ropinirole for restless leg syndrome was decreased to as needed as it was felt this potentially could be causing dizziness and hypotension. She did have positive orthostatic vital signs. She was also started on gabapentin in favor of the Requip. In ED patient remained hemodynamically stable. Lab abnormalities include creatinine 1.42, mag 2.6, AST 61, ALT 81, total protein 8.4, INR 1.5 and +2 leukocyte esterase, WBC and +1 bacteria in urine. Chest x-ray revealed cardiomegaly but no acute abnormality. Head CT revealed small right frontal scalp hematoma but no acute intracranial abnormality or calvarial fracture. Hematoma 5.8 x 0.4 cm. Left foot x-ray did reveal an acutely oblique oriented fracture of the fifth metatarsal without significant displacement. She was placed in L darco shoe. She received IVF and IV rocephin for possible UTI. Admission Exam Per Admitting Provider Physical Exam Physical Exam: Constitutional: Elderly, petite, female, sitting up in bed, pleasant, answers all questions appropriately, vitals as above, NAD, Head: Normocephalic, right frontal hematoma noted, tender to palpation Eyes: PERRL, conjunctivae normal, anicteric sclerae ENMT: external ear and nose normal, oropharynx normal Neck: trachea midline, no thyromegaly normal visual inspection Respiratory: normal respiratory effort, lungs clear to auscultation, no wheeze, rales, rhonchi. Normal insp/exp effort, no accessory muscle use Cardiovascular: RRR, 1/6 JUAN noted RUSB, no edema Vessels: no JVD or carotid bruit Chest: normal inspection of chest Abdomen: normal bowel sounds, soft, nontender, no hepatosplenomegaly Musculoskeletal: no cyanosis or clubbing, extremities motor strength 5/5 , left Darco shoe in place Skin: no rashes, warm and dry mild turgor Neurologic: PERRL, EOMI, accommodation nl, no face palsy, no dysarthria CN's II-XI intact bilaterally and moves all extremities Psychiatric: A+Ox3, euthymic affect Lymphatic: no cervical or axillary lymphadenopathy : deferred Principal Diagnosis Recurrent Syncope Hematoma of frontal scalp Fracture of Left 5th metatarsal Discharge Data Allergies Allergy/AdvReac Type Severity Reaction Status Date / Time ciprofloxacin Allergy Intermediate RASH Verified 05/23/20 04:46 Sulfa (Sulfonamide Allergy Intermediate HIVES, RASH Verified 05/23/20 04:46 Antibiotics) adhesive Allergy Unknown ADHESIVE Verified 05/23/20 04:46 TAPE Cipro Allergy Unknown RASH Verified 10/25/17 05:26 estrogens, conjugated Allergy Unknown SEVERE Verified 05/23/20 04:46 RASH, PAINFUL FROM VAGINAL CREAM tetanus toxoid, adsorbed Allergy Unknown UNKNOWN Verified 05/23/20 04:46 Consultations 05/23/20 07:26 ED Decision to Admit Stat 05/23/20 09:07 Consult Orthopedic Surgery Routine 05/23/20 11:01 Consult Neurology Routine Procedures Performed BMP 05/27/20 07:16 Sodium 136 Potassium 3.9 Chloride 105 Carbon Dioxide 26 BUN 22 H Creatinine 1.54 H Glucose 88 Calcium 8.6 Ordered Studies 05/23/20 04:46 CT cervical spine wo con Urgent 05/23/20 04:47 CT head/brain wo con Urgent -CT Head:No acute intracranial abnormality or calvarial fracture. Small right frontal scalp hematoma. -EEG:This is a normal awake and drowsy routine EEG. No focal slowing or epileptiform activity is recorded. -ECHO: Normal LV size, mild concentric LVH. EF 60 to 65%. Grade 2 diastolic dysfunction. Mild tricuspid regurgitation, aortic valvular sclerosis mild, without significant aortic valvular stenosis Hospital Course (1) Syncope: Patient is an 89 yr female with H/O P.Afib on warfarin, history of TBS status post PPM, chronic diastolic CHF, HTN, HLD, history of SVT, CKD stage III, hypothyroidism, hyperparathyroidism, RLS who presents to ED after sustaining a syncopal episode and trauma to head and foot prior to arrival. Recurrent Syncope Fall secondary to Above -CT Head:No acute intracranial abnormality or calvarial fracture. Small right frontal scalp hematoma. -EEG:This is a normal awake and drowsy routine EEG. No focal slowing or epileptiform activity is recorded. -ECHO: Normal LV size, mild concentric LVH. EF 60 to 65%. Grade 2 diastolic dysfunction. Mild tricuspid regurgitation, aortic valvular sclerosis mild, without significant aortic valvular stenosis -Positive orthostatic hypotension -Recent Carotid USD:50-69% stenosis left internal carotid artery -Recently had Pacemaker Interrogation -Negative Troponin -Continue to monitor on Tele -Received gentle IV Fluids -Discontinue Amlodipine -Decrease ropinirole, gabapentin to once daily at bedtime -Appreciate neurology input -Fall precautions -Needs outpatient 72-hour EEG -Needs follow-up with neurology in 4 to 6 weeks upon discharge PT OT recommends rehab--patient currently prefers to be discharged home with home health UTI: ruled out Urine Cx: Corynebacterium species Discontinue IV Rocephin (2) Hematoma of frontal scalp: Secondary to syncope and fall Possible mild TBI given headache Neuro checks q4h (3) Fracture of 5th metatarsal: Secondary to fall Foot X ray:Acute obliquely oriented fracture of the fifth metatarsal without significant displacement. Appreciate orthopedics input Nonoperative management Needs follow-up with orthopedics Dr. Adam in 1 to 2 weeks upon discharge Continue PT/OT : Needs Rehab placement Patient refuses rehab placement Needs low tide walking boot arranged prior to discharge (4) Atrial fibrillation: Subtherapeutic INR Continue metoprolol, amiodarone, digoxin Monitor INR:1.5>1.7>2.4>3.2 Hold Coumadin today (5) Chronic diastolic CHF (congestive heart failure): Echo as above Daily weights, strict I's and O's Monitor volume status Continue home meds (6) Tachy-enid syndrome: S/P PPM Pacemaker interrogation Recent interrogation in April (7) HTN (hypertension): BP labile Discontinue Amlodipine as orthostatic hypotension Continue metoprolol Monitor BP Consider low dose lisinopril if persistent high BP (8) CKD (chronic kidney disease), stage III: Baseline Cr:1.5-1.6 Cr at baseline monitor (9) RLS (restless legs syndrome): Decreased Requip to QHS Decreased Gabapentin to 100mg QHS DVT Px: Coumadin Code Status Full Code Disposition Refuses rehab placement Plan to discharge home with home Total Time Total Time Spent Total Time Spent (In Minutes): 44 minutes Total Time Includes: Examination of the Patient, Discharge Planning, Medication Reconciliation, Communication With Other Providers and Other Discharge Plan Discharge Items Patient Disposition: Home - Home Health Services Reason For Visit: SYNCOPE, R FRONT SCALP HEMATOMA, 5TH METATARSAL FX Discharge Diagnosis: Recurrent Syncope Hematoma of frontal scalp Fracture of Left 5th metatarsal Activity: Per Instructions section Non-emergency contact: Primary Care Provider, Surgeon and Neurologist Call non-emergency contact if: you have any medication questions, your symptoms worsen, your pain is not controlled, your pain is concerning for you and you have a fever Follow-up/Referrals: Roly Vogel MD [Primary Care Provider] - 05/30/20 3:00 pm (Date & Time 05/30/2020 3:00 PM Provider Roly Vogel MD Department Internal Medicine [facility] ) Jamie Salgado, [Physician] - 06/18/20 11:05 am Diet: Heart Healthy Addtl Attending Provider Instructions: Follow-up with your primary care physician Dr. Vogel on 05/30/2020 3:00 PM Follow-up with your neurologist in 4-6 weeks for 72 hour electroencephalogram as recommended by your neurologist. Follow-up with your orthopedic surgeon Dr. Adam in 1-2 weeks. Please call [facility] at [phone] to make an appointment. Follow-up with your Coumadin clinic: For management of Coumadin dosing and monitoring PT/INR You can weightbear on left foot by using the orthotic boot as advised. Your PT/INR is 3.2 on 05/27/20. Do not take coumadin today. Get PT/INT tested tomorrow 05/28/20 and follow-up with Coumadin clinic for instructions on Coumadin dosing. Seek immediate medical attention if your symptoms reoccur or worsen Pending Studies at Discharge: No Stand-Alone Forms: [facility], Opioid Pain Management, Smoking Cessation Medications and DC Order Prescriptions: New tramadol 50 mg Tablet 25 mg PO Q8H PRN (Reason: pain) Qty: 10 RF: 0 Continued amiodarone 200 mg Tablet 200 mg PO DAILY RF: 0 hydroxyzine HCl 25 mg Tablet 25 mg PO Q6 PRN (Reason: Itching) RF: 0 acetaminophen [Tylenol] 325 mg Tablet 650 mg PO Q6H PRN (Reason: Pain) RF: 0 warfarin 1 mg Tablet 1 mg PO SUMOTUTHFRSA@1600 RF: 0 cholecalciferol (vitamin D3) [Vitamin D3] 50 mcg (2,000 unit) Tablet 50 mcg PO DAILY RF: 0 escitalopram oxalate 5 mg tablet 5 mg PO DAILY RF: 0 metoprolol succinate 25 mg tablet extended release 24 hr 25 mg PO DAILY RF: 0 loperamide 2 mg Tablet 2 mg PO DIRECTED MDD 16 MG/24 HOURS PRN (Reason: Diarrhea) RF: 0 levothyroxine 50 mcg Tablet 50 mcg PO DAILY@0600 RF: 0 nitroglycerin 0.4 mg Tablet, Sublingual 0.4 mg Sublingual DIRECTED PRN (Reason: Chest Pain) RF: 0 digoxin 125 mcg Tablet 0.125 mg PO 3XWK RF: 0 ondansetron 4 mg Tablet,Disintegrating 4 mg translingual Q6 PRN (Reason: Nausea) RF: 0 rosuvastatin 10 mg Tablet 10 mg PO HS RF: 0 diphenhydramine-zinc acetate 2-0.1 % cream 1 applic Topical QID PRN (Reason: Itching) RF: 0 betamethasone dipropionate 0.05 % ointment 1 applic Topical BID PRN (Reason: Itching) RF: 0 levocetirizine 5 mg tablet 5 mg PO DAILY RF: 0 ammonium lactate 12 % cream 1 applic TOPICAL BID PRN (Reason: Dry Skin) RF: 0 warfarin 1 mg Tablet 2 mg PO WE@1600 RF: 0 gabapentin 100 mg capsule 100 mg PO HS Qty: 0 RF: 0 Changed ropinirole 0.5 mg Tablet 0.5 mg PO HS PRN (Reason: Restless Leg(S)) Qty: 0 RF: 0 Discontinued amlodipine [Norvasc] 5 mg Tablet 2.5 mg PO HS Qty: 30 RF: 0 Discharge Orders: Discharge Order (Routine); Ordered 05/27/20 Ordered By: Aneesh Miller Admission Data Admit Date/Time: 05/24/20 18:25 Attending Provider: Aneesh Miller Admit Provider: Liss Gutierrez Primary Care Provider: Roly Vogel Other Providers: Jamie Salgado ; Wayne Yin ; Kevon Hernandez [facility] Other Interventions: Discharge Summary Assessment (RN) Last Done: 05/27/20 14:13
[2020-05-27 14:16] VITALS: PULSE 79
== END 2020-05-27 15:50 | disposition home health service (06) | DRG 312 ==
LOC: ED 04:13 → 2N 04:13 → SUATTDRO 08:33 → 2N 11:15 → 3N 05-25 22:56

== ENCOUNTER 2020-10-22 01:04 | Inpatient (IN) ==
--- NOTE | 2020-10-22 01:55 | Emergency Department Note ---
Impression & Plan Fall, Generalized weakness Admit to the [facility] ED Provider Note NAME: MARY WINKLER AGE: 89 SEX: F ARRIVES VIA: Ambulance INFORMANT: Patient ED PROVIDER(S): Michelle Mckeon DO CHIEF COMPLAINT: Fall PLAN: Disposition: Admit to the [facility] Condition: Fair MEDICAL DECISION MAKING: This is an 89-year-old female patient who presents to the emergency department with increasing weakness and lethargy after suffering a fall 5 days ago. Patient is on Coumadin. The patient is now unable to stand and walk on her own. Her family has become concerned about her. Patient had a CT scan of her head which showed no evidence of intracranial hemorrhage. Laboratory studies were fairly unremarkable. Urinalysis was negative. Nursing staff attempted to walk the patient but she required multiple people to assist her. She was significantly weak. Triage Nursing notes reviewed and agree with them. Prior medical records reviewed Vital Signs: reviewed and unremarkable Differential diagnosis: Intracranial hemorrhage, UTI, dehydration, generalized weakness ER treatment provided: Diagnostics interpreted by me: ECG: atrial paced at a rate of 60 with prolonged A-V conduction. Cardiac Monitoring: Atrial paced at a rate of 60 Laboratory studies: See below Imaging studies: As per stat rad CT scan brain: No intracranial hemorrhage, mass-effect or midline shift. There is no abnormal extra-axial fluid collection. No evidence of acute infarct. Moderate periventricular white matter hypodensities are most consistent with chronic microangiopathy. The visualized paranasal sinuses and mastoid air cells are clear. No fracture HPI: 89/F arrives for evaluation of weakness. The patient has had a general decline over the past 5 days after suffering a fall at home. She has had increasing weakness and lethargy. The patient has evidence of a hematoma to the left temporal region of her head. She does take Coumadin. She has not been evaluated for this head injury since the fall. The patient's daughter and nephew were concerned about her declining mental status and inability to ambulate and suggest that she come here for evaluation. Patient has severe generalized weakness unable to ambulate. ROS: See above HPI for pertinent positives & negatives. A total of 10 systems reviewed and were otherwise negative. PAST MEDICAL HISTORY:See Below PAST SURGICAL HISTORY:See Below FAMILY HISTORY:See Below SOCIAL HISTORY:See Below HOME MEDICATIONS:See list ALLERGIES:see list VITALS:See Below PHYSICAL EXAMINATION: HEENT: Head - normocephalic with contusion to left forehead. Pupils are equal, round, and reactive to light. Extraocular eye muscles are intact, and sclera are anicteric. Contusion to right lateral eye. Nose - moist nasal mucosa without discharge. Mouth - moist buccal mucosa. Oropharynx is nonerythematous and there is no tonsillar exudate or edema noted. Neck: Supple; no pain to palpation over the posterior cervical spine. There was no nuchal rigidity or cervical lymphadenopathy. There is no JVD Heart: Regular rate and rhythm. There is a normal S1 and S2 with no murmurs, clicks, or gallops appreciated. Lungs: Clear to auscultation bilaterally with no wheezes, rales, or rhonchi. Abdomen: Soft, completely nontender, nondistended, with good bowel sounds. There are no palpable pulsatile masses or hepatosplenomegaly. There is no guarding, rigidity, or rebound noted. Extremities: No evidence of cyanosis, clubbing, or edema. There are easily palpable peripheral pulses. Skin: warm and dry with good turgor and no rashes. ED COURSE: Times/Reassessments: 0140: The patient was evaluated in room A4. A complete history and physical was performed. Previous electronic medical records were reviewed. Laboratory studies were drawn as above. An order was placed for continuous cardiac monitoring. The patient was in a normal sinus rhythm at a rate of 60. A twelve-lead EKG was obtained. The patient went for CT scan of the brain. There is no evidence of intracranial hemorrhage. Nursing staff attempted to ambulate the patient. She was unable to walk or stand on her own. She has such significant ambulatory dysfunction and overall decline that she will require admission to the hospital for further care. Michelle Mckeon DO Past Med/Surg History Medical History (Updated 10/24/20 @ 15:23 by Michelle Mckeon DO) Atrial fibrillation Chronic diastolic CHF (congestive heart failure) CKD (chronic kidney disease), stage III Diverticular disease of colon Dyslipidemia HTN (hypertension) HTN (hypertension) Hypothyroidism Pacemaker RLS (restless legs syndrome) Rosacea SVT (supraventricular tachycardia) Tachy-enid syndrome Surgical History History of carpal tunnel surgery History of cataract surgery History of colon resection History of hysterectomy History of tonsillectomy and adenoidectomy History of total right knee replacement S/P laparoscopic-assisted sigmoidectomy S/P ELISHA (total abdominal hysterectomy) Family History (Updated 05/23/20 @ 09:22 by Liza Castillo PA-C) Other Heart disease Social History Smoking Status: Never smoker Second Hand Exposure: No; Hx Alcohol Use: No Hx Substance Use: No Preferred Language: Bahamian Communication Ability: Effective Visual Impairment: No Limitations Gaming Commissioner Required: No Beliefs That Will Affect Care: None marital status: / Current Living Situation: Family Current Living Situation Comment: LIVES WITH DAUGHTER HERNANDO Other Information That Helps Us Care for You: No Feels Safe at Home: Yes Safety Concerns: Feels Safe At This Time Assistive Devices: Glasses and Walker Allergies Allergies Allergy/AdvReac Type Severity Reaction Status Date / Time ciprofloxacin Allergy Intermediate RASH Verified 08/10/20 19:09 estrogens, conjugated Allergy Intermediate SEVERE Verified 08/10/20 19:09 RASH, PAINFUL FROM VAGINAL CREAM Sulfa (Sulfonamide Allergy Intermediate HIVES, RASH Verified 08/10/20 19:09 Antibiotics) adhesive Allergy Unknown ADHESIVE Verified 08/10/20 19:09 TAPE-SKIN IRRITATION tetanus toxoid, adsorbed Allergy Unknown UNKNOWN Verified 08/10/20 19:09 Home Meds Home Medications Medication Instructions Recorded Confirmed digoxin 125 mcg (0.125 mg) tablet 0.125 mg PO 3XWK 12/25/17 08/10/20 levothyroxine 50 mcg tablet 50 mcg PO DAILY@0600 12/25/17 08/10/20 loperamide 2 mg tablet 2 mg PO DIRECTED PRN MDD 16 12/25/17 08/10/20 MG/24 HOURS nitroglycerin 0.4 mg sublingual 0.4 mg SUBLINGUAL DIRECTED PRN 12/25/17 08/10/20 tablet ondansetron 4 mg disintegrating 4 mg TRANSLINGUAL Q6 PRN 12/25/17 08/10/20 tablet rosuvastatin 10 mg tablet 10 mg PO HS 12/25/17 08/10/20 betamethasone dipropionate 0.05 % 1 applic TOPICAL BID PRN 01/02/18 08/10/20 topical ointment diphenhydramine-zinc acetate 2 1 applic TOPICAL QID PRN 01/02/18 08/10/20 %-0.1 % topical cream acetaminophen 325 mg tablet 650 mg PO Q6H PRN 08/21/18 08/10/20 (Tylenol) amiodarone 200 mg tablet 200 mg PO DAILY 08/21/18 08/10/20 hydroxyzine HCl 25 mg tablet 25 mg PO Q6 PRN 08/21/18 08/10/20 cholecalciferol (vitamin D3) 50 50 mcg PO DAILY 05/31/19 08/10/20 mcg (2,000 unit) tablet (Vitamin D3) escitalopram oxalate 5 mg tablet 5 mg PO DAILY 05/31/19 08/10/20 metoprolol succinate 25 mg 25 mg PO DAILY 05/31/19 08/10/20 tablet,extended release 24 hr warfarin 1 mg tablet 1 mg PO SUMOTUTHFRSA@1600 05/31/19 08/10/20 ammonium lactate 12 % topical cream 1 applic TOPICAL BID PRN 05/23/20 08/10/20 levocetirizine 5 mg tablet 5 mg PO DAILY 05/23/20 08/10/20 warfarin 1 mg tablet 2 mg PO WE@1600 05/23/20 08/10/20 ropinirole 0.5 mg tablet 0.5 mg PO BID PRN 08/10/20 08/10/20 Previous Rx's Medication Instructions Recorded gabapentin 100 mg capsule 100 mg PO HS #0 cap 05/27/20 tramadol 50 mg tablet 25 mg PO Q8H PRN #10 tab 05/27/20 Results & Data (ED) Vital Signs Vital Signs - 24 hr 10/22/20 01:19 10/22/20 02:19 Temperature 36.9 C Temperature Source Oral Pulse Rate 60 60 Respiratory Rate 16 16 Blood Pressure 134/81 Blood Pressure Mean 98 Pulse Oximetry 93 96 Oxygen Delivery Method Room Air Room Air Oxygen Flow Rate 0 Sepsis Recent Fever Within 48 Hours No Sepsis New/Unexplained Change in Mental Status No Sepsis Action Taken by Nursing No Action Required Laboratory Data Result diagrams: 10/24/20 06:21 10/24/20 06:21 Lab Results 10/22/20 10/22/20 10/22/20 Range/Units 01:15 01:15 03:00 WBC 10.94 H (4.8-10.8) K/uL RBC 3.68 L (4.2-5.4) M/uL Hgb 10.7 L (12.0-16.0) g/dL Hct 34.0 L (37-47) % MCV 92.4 (80-100) fL MCH 29.1 (25-34) pg MCHC 31.5 L (32-36) g/dL RDW Std Deviation 58.4 H (36.4-46.3) fL RDW Coeff of Mino 17.4 H (11.5-14.5) % Plt Count 219 (130-400) K/uL MPV 11.3 H (7.4-10.4) fL Immature Gran % (Auto) 0.3 % Neut % (Auto) 77.6 % Lymph % (Auto) 11.0 % [place] % (Auto) 10.4 % Eos % (Auto) 0.5 % Baso % (Auto) 0.2 % Neut # (Auto) 8.50 H (1.4-6.5) K/uL Lymph # (Auto) 1.20 (1.2-3.4) K/uL [place] # (Auto) 1.14 H (0.11-0.59) K/uL Eos # (Auto) 0.05 (0-0.5) K/uL Baso # (Auto) 0.02 (0-0.2) K/uL Immature Gran # (Auto) 0.03 H (0.00-0.02) K/uL PT (9.0-12.0) Seconds INR (0.9-1.1) Sodium 137 (136-145) mmol/L Potassium 4.5 (3.5-5.1) mmol/L Chloride 104 (98-107) mmol/L Carbon Dioxide 26 (21-32) mmol/L Anion Gap 7.0 (3-11) BUN 15 (7-18) mg/dl Creatinine 1.53 H (0.6-1.2) mg/dl Est Cr Clr Drug Dosing 19.4 ml/min Est GFR ( Amer) 34.6 ml/min Est GFR (Non-Af Amer) 29.8 ml/min BUN/Creatinine Ratio 9.5 L (10-20) Glucose 99 (70-99) mg/dl Calcium 8.0 L (8.5-10.1) mg/dl Total Bilirubin 0.6 (0.2-1) mg/dl AST 131 H (15-37) U/L ALT 81 H (12-78) U/L Alkaline Phosphatase 146 H (45-117) U/L Total Protein 6.5 (6.4-8.2) gm/dl Albumin 2.9 L (3.4-5.0) gm/dl Globulin 3.6 (2.5-4.0) gm/dl Albumin/Globulin Ratio 0.8 L (0.9-2) TSH 6.840 H (0.300-4.500) uIu/ml Free T4 1.34 (0.8-1.6) ng/dl Urine Color Yellow Urine Appearance Clear (Clear) Urine pH 7.0 (4.5-7.5) Ur Specific [place] 1.010 (1.000-1.030) Urine Protein 1+ H (Negative) Urine Glucose (UA) Negative (Negative) Urine Ketones Negative (Negative) Urine Blood Negative (Negative) Urine Nitrite Negative (Negative) Urine Bilirubin Negative (Negative) Urine Urobilinogen Negative (Negative) Ur Leukocyte Esterase Negative (Negative) Urine WBC (Auto) 1-5 (0-5) /hpf Urine RBC (Auto) 0-4 (0-4) /hpf U Hyaline Cast (Auto) 1-5 (0-5) /lpf U Epithel Cells (Auto) 0-5 (0-5) /lpf Urine Bacteria (Auto) Negative (Negative) COVID-19 Eval Order SARS-CoV-2 (PCR) (Negative) 10/22/20 10/22/20 10/22/20 Range/Units 03:03 03:03 04:05 WBC (4.8-10.8) K/uL RBC (4.2-5.4) M/uL Hgb (12.0-16.0) g/dL Hct (37-47) % MCV (80-100) fL MCH (25-34) pg MCHC (32-36) g/dL RDW Std Deviation (36.4-46.3) fL RDW Coeff of Mino (11.5-14.5) % Plt Count (130-400) K/uL MPV (7.4-10.4) fL Immature Gran % (Auto) % Neut % (Auto) % Lymph % (Auto) % [place] % (Auto) % Eos % (Auto) % Baso % (Auto) % Neut # (Auto) (1.4-6.5) K/uL Lymph # (Auto) (1.2-3.4) K/uL [place] # (Auto) (0.11-0.59) K/uL Eos # (Auto) (0-0.5) K/uL Baso # (Auto) (0-0.2) K/uL Immature Gran # (Auto) (0.00-0.02) K/uL PT 20.3 H (9.0-12.0) Seconds INR 2.1 H (0.9-1.1) Sodium (136-145) mmol/L Potassium (3.5-5.1) mmol/L Chloride (98-107) mmol/L Carbon Dioxide (21-32) mmol/L Anion Gap (3-11) BUN (7-18) mg/dl Creatinine (0.6-1.2) mg/dl Est Cr Clr Drug Dosing ml/min Est GFR ( Amer) ml/min Est GFR (Non-Af Amer) ml/min BUN/Creatinine Ratio (10-20) Glucose (70-99) mg/dl Calcium (8.5-10.1) mg/dl Total Bilirubin (0.2-1) mg/dl AST (15-37) U/L ALT (12-78) U/L Alkaline Phosphatase (45-117) U/L Total Protein (6.4-8.2) gm/dl Albumin (3.4-5.0) gm/dl Globulin (2.5-4.0) gm/dl Albumin/Globulin Ratio (0.9-2) TSH (0.300-4.500) uIu/ml Free T4 (0.8-1.6) ng/dl Urine Color Urine Appearance (Clear) Urine pH (4.5-7.5) Ur Specific [place] (1.000-1.030) Urine Protein (Negative) Urine Glucose (UA) (Negative) Urine Ketones (Negative) Urine Blood (Negative) Urine Nitrite (Negative) Urine Bilirubin (Negative) Urine Urobilinogen (Negative) Ur Leukocyte Esterase (Negative) Urine WBC (Auto) (0-5) /hpf Urine RBC (Auto) (0-4) /hpf U Hyaline Cast (Auto) (0-5) /lpf U Epithel Cells (Auto) (0-5) /lpf Urine Bacteria (Auto) (Negative) COVID-19 Eval Order Covid19 at [facility] SARS-CoV-2 (PCR) POSITIVE A* (Negative) Administered Medications Acetaminophen (Acetaminophen 325 Mg Tab) 650 mg PO Q4H PRN PRN Reason: Pain or Fever Stop: 11/21/20 06:05 Last Admin: 10/23/20 21:31 Dose: 650 mg Documented by: [id number] Admin: 10/23/20 07:51 Dose: 650 mg Documented by: [id number] Admin: 10/22/20 22:15 Dose: 650 mg Documented by: [id number] Admin: 10/22/20 10:34 Dose: 650 mg Documented by: [id number] Amiodarone HCl (Amiodarone 200 Mg Tab) 200 mg PO DAILY [facility] Stop: 11/21/20 10:29 Last Admin: 10/24/20 09:17 Dose: 200 mg Documented by: [id number] Admin: 10/23/20 07:52 Dose: 200 mg Documented by: [id number] Admin: 10/22/20 12:13 Dose: 200 mg Documented by: [id number] Betamethasone Dipropion Augmented (Betamethasone Dip Aug (Diprolene) 0.05% Cr 15 Gm Tube) 1 appln EXT BID PRN PRN Reason: Itching Stop: 11/21/20 10:42 Last Admin: 10/23/20 16:21 Dose: 1 appln Documented by: [id number] Cetirizine HCl (Cetirizine Hcl 10 Mg Tablet) 5 mg PO DAILY [facility] Stop: 11/22/20 08:59 Last Admin: 10/24/20 09:17 Dose: 5 mg Documented by: [id number] Admin: 10/23/20 07:52 Dose: 5 mg Documented by: [id number] Digoxin (Digoxin 0.125 Mg Tab) 0.125 mg PO MoWeFr@1600 [facility] Stop: 11/22/20 15:59 Last Admin: 10/23/20 16:18 Dose: 0.125 mg Documented by: [id number] Escitalopram Oxalate (Escitalopram Oxalate 10 Mg Tab) 5 mg PO DAILY [facility] Stop: 11/22/20 08:59 Last Admin: 10/24/20 09:18 Dose: 5 mg Documented by: [id number] Admin: 10/23/20 07:52 Dose: 5 mg Documented by: [id number] Gabapentin (Gabapentin 100 Mg Cap) 100 mg PO HS [facility] Stop: 11/21/20 20:59 Last Admin: 10/23/20 20:08 Dose: 100 mg Documented by: [id number] Admin: 10/22/20 20:34 Dose: 100 mg Documented by: [id number] Levothyroxine Sodium (Levothyroxine Sodium 50 Mcg Tablet) 50 mcg PO DAILY@0600 [facility] Stop: 11/22/20 05:59 Last Admin: 10/24/20 05:41 Dose: 50 mcg Documented by: [id number] Admin: 10/23/20 05:46 Dose: 50 mcg Documented by: [id number] Metoprolol Succinate (Metoprolol Succ 25mg Ext Rel Tab) 25 mg PO DAILY [facility] Stop: 11/21/20 10:29 Last Admin: 10/24/20 09:18 Dose: 25 mg Documented by: [id number] Admin: 10/23/20 07:52 Dose: 25 mg Documented by: [id number] Admin: 10/22/20 12:13 Dose: 25 mg Documented by: [id number] Miscellaneous (Ammonium Lactate Cream ~ Order Awaiting Action) 1 ea N/A QS [facility] Stop: 11/21/20 15:59 Last Admin: 10/24/20 08:10 Dose: Not Given Documented by: [id number] Admin: 10/23/20 22:14 Dose: Not Given Documented by: [id number] Admin: 10/23/20 14:36 Dose: Not Given Documented by: [id number] Admin: 10/23/20 07:56 Dose: Not Given Documented by: [id number] Admin: 10/23/20 00:09 Dose: Not Given Documented by: [id number] Admin: 10/22/20 14:29 Dose: Not Given Documented by: [id number] Ondansetron HCl (Ondansetron Inj 2 Mg/Ml 2 Ml Vial) 4 mg IV Q6H PRN PRN Reason: Nausea Stop: 11/21/20 06:05 Last Admin: 10/24/20 14:41 Dose: 4 mg Documented by: [id number] Admin: 10/23/20 21:32 Dose: 4 mg Documented by: [id number] Ropinirole HCl (Ropinirole Hcl 0.25 Mg Tablet) 0.5 mg PO BID PRN PRN Reason: Restless Leg(S) Stop: 11/21/20 10:16 Last Admin: 10/24/20 09:25 Dose: 0.5 mg Documented by: [id number] Admin: 10/23/20 20:08 Dose: 0.5 mg Documented by: [id number] Admin: 10/23/20 02:34 Dose: 0.5 mg Documented by: [id number] Rosuvastatin Calcium (Rosuvastatin Calcium 10 Mg Tab) 10 mg PO HS [facility] Stop: 11/21/20 20:59 Last Admin: 10/23/20 20:08 Dose: 10 mg Documented by: [id number] Admin: 10/22/20 20:34 Dose: 10 mg Documented by: [id number] Tramadol HCl (Tramadol Hcl 50 Mg Tablet) 25 mg PO Q8H PRN PRN Reason: pain Stop: 11/21/20 10:16 Last Admin: 10/23/20 20:17 Dose: 25 mg Documented by: [id number] Admin: 10/23/20 02:34 Dose: 25 mg Documented by: [id number] Vitamin D (Cholecalciferol 1,000 Units 25 Mcg Tab) 2,000 units PO DAILY [facility] Stop: 11/22/20 08:59 Last Admin: 10/24/20 09:18 Dose: 2,000 units Documented by: [id number] Admin: 10/23/20 07:51 Dose: 2,000 units Documented by: [id number] Warfarin Sodium (Warfarin Sod 2 Mg Tab) 2 mg PO WE@1600 [facility] Stop: 11/22/20 15:59 Last Admin: 10/23/20 16:18 Dose: 2 mg Documented by: [id number] Warfarin Sodium (Warfarin Sod 1 Mg Tab) 1 mg PO SUMOTUTHFRSA@1600 [facility] Stop: 11/21/20 15:59 Last Admin: 10/22/20 16:36 Dose: 1 mg Documented by: [id number] Discontinued Medications Sodium Chloride (Nss 1000ml) 1,000 mls @ 75 mls/hr IV .[id number] [facility] Stop: 10/22/20 19:25 Last Infusion: 10/22/20 20:39 Dose: 0 mls/hr Documented by: [id number] Admin: 10/22/20 06:33 Dose: 75 mls/hr Documented by: [id number] Ceftriaxone Sodium 1,000 mg/ (Dextrose) 50 mls @ 100 mls/hr IV Q24H [facility]; Protocol Stop: 10/24/20 19:59 Last Infusion: 10/23/20 20:57 Dose: 0 mls/hr Documented by: [id number] Admin: 10/23/20 20:07 Dose: 100 mls/hr Documented by: [id number] Infusion: 10/22/20 21:25 Dose: 0 mls/hr Documented by: [id number] Admin: 10/22/20 20:33 Dose: 100 mls/hr Documented by: [id number] Ropinirole HCl (Ropinirole Hcl 0.25 Mg Tablet) 0.5 mg PO NOW STA Stop: 10/22/20 04:47 Last Admin: 10/22/20 05:39 Dose: 0.5 mg Documented by: [id number] Discharge Plan Visit Data Chief Complaint: Weakness Stated Complaint: INCREASED WEAKNESS/LETHARGY ED Provider: Michelle Mckeon Discharge Problem: Fall, Generalized weakness Patient Disposition: Admitted As Inpatient Discharge Instructions Interventions: ED Discharge Assessment Last Done: 10/22/20 05:35 Discharge Problem: Fall Qualifiers: Encounter type: initial encounter Qualified Code(s): W19.XXXA - Unspecified fall, initial encounter
[2020-10-22 02:02] LABS: Basophils # (auto) 0.02 K/uL (0-0.2); Basophils % (auto) 0.2 %; Eosinophils # (auto) 0.05 K/uL (0-0.5); Eosinophils % (auto) 0.5 %; Hemoglobin 10.7 g/dL (12.0-16.0); Immature Granulocytes # (auto) 0.03 K/uL (0.00-0.02); Immature Granulocytes % (auto) 0.3 %; Mean Corpuscular Hemoglobin 29.1 pg (25-34); Mean Corpuscular Hgb Conc 31.5 g/dL (32-36); Mean Corpuscular Volume 92.4 fL (80-100); Mean Platelet Volume 11.3 fL (7.4-10.4); Monocytes # (auto) 1.14 K/uL (0.11-0.59); Monocytes % (auto) 10.4 %; Neutrophils % (auto) 77.6 %; Platelet Count 219 K/uL (130-400); RDW Coefficient of Variation 17.4 % (11.5-14.5); RDW Standard Deviation 58.4 fL (36.4-46.3); Red Blood Count 3.68 M/uL (4.2-5.4); White Blood Count 10.94 K/uL (4.8-10.8)
[2020-10-22 02:10] LABS: Albumin Level 2.9 gm/dl (3.4-5.0); BUN Creatinine Ratio 9.5 (10-20); Creatinine Clr Calc Pharmacy 19.4 ml/min; Est GFR (African American) 34.6 ml/min; Est GFR (Non-African American) 29.8 ml/min; Potassium 4.5 mmol/L (3.5-5.1)
[2020-10-22 02:21] LABS: Albumin Globulin Ratio 0.8 (0.9-2); Bilirubin,Total 0.6 mg/dl (0.2-1); Globulin 3.6 gm/dl (2.5-4.0); Thyroid Stimulating Hormone 6.84 uIu/ml (0.300-4.500); Total Protein 6.5 gm/dl (6.4-8.2)
[2020-10-22 02:35] LABS: T4 Free Thyroxine 1.34 ng/dl (0.8-1.6)
[2020-10-22 03:08] LABS: Appearance Urine Clear (Clear); Bacteria Urine Automated Negative (Negative); Bilirubin Urine Negative (Negative); Blood Urine Negative (Negative); Color Urine Yellow; Epithelial Cell Urine Auto 0-5 /lpf (0-5); Glucose Urine UA Negative (Negative); Ketones Urine Negative (Negative); Leukocyte Esterase Urine Negative (Negative); Nitrite Urine Negative (Negative); Protein Urine 1+ (Negative); RBC Urine Automated 0-4 /hpf (0-4); Urobilinogen Urine Negative (Negative)
[2020-10-22 04:27] LABS: INR 2.1 (0.9-1.1); Prothrombin Time 20.3 Seconds (9.0-12.0)
[2020-10-22] MEDS ORDERED: rOPINIRole HCL 0.25 MG TABLET PO STA (04:46)
--- NOTE | 2020-10-22 05:57 | History and Physical Report ---
DATE OF ADMISSION: 10/22/2020. CHIEF COMPLAINT: Weakness, COVID positive. HISTORY OF PRESENT ILLNESS: This is an 89-year-old female with past medical history significant for paroxysmal atrial fibrillation, on anticoagulation with warfarin; history of tachybrady syndrome, status post pacemaker; history of chronic diastolic congestive heart failure; history of hypertension; hyperlipidemia; history of SVT; chronic kidney disease stage III; hypothyroidism; hyperparathyroidism; restless legs syndrome; neurofibroma, multiple sites; Dupuytren contracture, right hand; history of psychogenic nonepileptic seizures; generalized anxiety; frequent falls, who lives at home with her daughter, ambulates with a walker, presents with fall and weakness. The patient says last she fell and hit her forehead and she has a bruise in her forehead. No loss of consciousness. Since today afternoon, she is not able to ambulate, that is why she was brought in here, having weakness. Denies any fever or chills. No shortness of breath, no cough, no chest pain, no nausea, no vomiting, no abdominal pain. Normal bowel and bladder movements. Has headache, no runny nose, no sore throat. When she eats, she swallows okay. The patient seems to be alert and oriented. Had Moderna vaccine, the last dose, second dose was 04/30/2020. Later on routine testing, COVID came back positive. She is saturating fine on room air. ALLERGIES: CIPROFLOXACIN, ESTROGENS, SULFA ANTIBIOTICS. Receives tetanus toxoid. PAST MEDICAL HISTORY: As mentioned above. PAST SURGICAL HISTORY: Pacemaker placement, right knee arthroplasty, carpal tunnel surgery, colonoscopies, laparoscopic colectomy with partial anastomosis for diverticulosis, bilateral cataract surgery, tonsillectomy and adenoidectomy, total abdominal hysterectomy with removal of tubes. MEDICATIONS: The patient is on Coumadin 1 mg 1-2 tablets as directed, digoxin 125 mcg p.o. on Mondays, Wednesdays and Fridays, Crestor 10 mg p.o. at bedtime, Lexapro 5 mg p.o. daily, Zofran 4 mg every 6 hours p.r.n., amiodarone 200 mg p.o. daily, gabapentin 100 mg b.i.d., ropinirole 0.5 mg b.i.d. as needed., tramadol 25 mg p.o. q. 8 hours p.r.n., vitamin D 2,000 units p.o. daily, levocetirizine 5 mg p.o. daily, levothyroxine 50 mcg p.o. daily, nitroglycerin 0.4 mg sublingual p.r.n., Imodium p.r.n., Toprol-XL 25 mg p.o. daily, hydroxyzine 25 mg p.o. q. 6 hours p.r.n., Tylenol 650 mg p.o. q. 6 hours p.r.n. FAMILY HISTORY: Significant for no family history on file. SOCIAL HISTORY: , lives with daughter. No smoking. Alcohol, rarely. No drug use. REVIEW OF SYSTEMS: As per HPI. Rest of review of systems is negative. PHYSICAL EXAMINATION: GENERAL: The patient is old and frail, not in acute distress. VITAL SIGNS: Temperature 36.9, pulse 60, respiratory rate 18, blood pressure 169/76, oxygen 96% on room air. HEENT: Pupils equal, round and reactive to light. Oral mucosa moist. NECK: No JVD, no neck masses. CARDIOVASCULAR: S1 and S2 heard. Regular rate and rhythm. No murmur, no gallop. RESPIRATORY SYSTEM: Normal AP diameter. No accessory muscle use. No wheezing, no crackles. ABDOMEN: Soft, bowel sounds present. Nontender, no distention. CENTRAL NERVOUS SYSTEM: Cranial nerves II-XII grossly intact, nonfocal. EXTREMITIES: No edema, no erythema. LABORATORY DATA: WBC 10.9, hemoglobin 10.7, hematocrit 34, platelets 219. PT 20.3, INR 2.1. Sodium 137, potassium 4.5, chloride 104, bicarbonate 26, BUN 15, creatinine 1.5, serum glucose 99, calcium 8, total bilirubin 0.6, AST 131, ALT 81, alkaline phosphatase 146, TSH 6.8, free T4 of 1.3. Urinalysis negative. SARS-CoV-2 PCR positive. IMAGING DATA: CT of the head, preliminary report, no acute findings. Chest x- ray, no acute findings. EKG: Atrial paced rhythm with prolonged AV conduction, left axis deviation, rate of 60, no significant change was found. ASSESSMENT AND PLAN: An 89-year-old female who presents with fall and ambulatory dysfunction. 1. Fall and ambulatory dysfunction: No signs of urinary tract infection or pneumonia on the chest x-ray, but SARS-CoV-2 PCR positive. The patient is vaccinated with Moderna, last dose was on 04/30/2020. Currently, except for the weakness and headache, no other complaints. No shortness of breath, no cough. Hemodynamically stable and saturating fine on room air. Will monitor in the [place]. COVID precautions, airborne precautions. PT, OT when stable. Gentle fluids for 1 liter. 2. Transaminitis: AST, ALT, and alkaline phosphatase mildly elevated. They were elevated before also. Could be from the ongoing COVID infection. Will follow repeat labs. 3. Chronic kidney disease stage IV: Creatinine of 1.4, seems to be at baseline. 4. Chronic diastolic congestive heart failure: Continue on digoxin, Toprol-XL. Not on any diuretics. Monitor for any volume overload. 5. History of paroxysmal atrial fibrillation and tachybrady syndrome: Status post pacemaker. On rate control, digoxin and amiodarone, Toprol-XL and Coumadin. Follow the PT/INR. 6. Depression: Continue her Lexapro. 7. Hypothyroidism: Continue Synthroid. 8. Hypertension: On Toprol-XL. Will monitor the blood pressure. 9. History of restless legs syndrome: On Requip p.r.n. 10. History of supraventricular tachycardia: On Toprol-XL. 11. Deep venous thrombosis prophylaxis: On Coumadin. Follow PT/INR. DISPOSITION: Closely monitor in [place]. PT/OT prior to discharge. Social service to help with discharge planning. Level 1 full code. Job ID: [id number] [facility]
[2020-10-22] MEDS ORDERED: SODIUM CHLORIDE 0.9% 1000ML 1,000 ML IV SCH (06:06)
[2020-10-22] MEDS ORDERED: POLYETHYLENE (MIRALAX) 17 GM PACK PO PRN (06:06)
[2020-10-22] MEDS ORDERED: NITROGLYCERIN SL 0.4 MG/TAB TAB SL PRN ×2 (06:06→10:17)
--- NOTE | 2020-10-22 07:05 | XRay Report ---
XR chest 1V portable HISTORY: 89 years-old Female weakness acute weakness COMPARISON: Chest radiograph 08/10/2020 TECHNIQUE: Portable AP view of the chest FINDINGS: Cardiomediastinal and hilar silhouettes are within normal limits. Left subclavian pacer. Calcified pl aque of the thoracic aorta. No pneumothorax, large pleural effusion or overt pulmonary edema. Unchang ed blunting of the costophrenic angles with linear bibasilar densities suggestive of atelectasis. Deg enerative changes of the shoulders and spine. IMPRESSION: No acute process. ACT 112: Negative or not required by law. The above report was generated using voice recognition software. It may contain grammatical, syntax o r spelling errors. Electronically signed by: Cholo Duke M.D. 10/22/2020 7:04 AM
--- NOTE | 2020-10-22 07:19 | CT Scan Report ---
CT head/brain wo con CLINICAL HISTORY: 89 years-old Female with fall - can't walk; on coumadin. Acute head injury status post fall TECHNIQUE: Multiple axial CT images of the head were obtained without contrast. A dose lowering tech nique was utilized adhering to the principles of ALARA. CT DOSE: 537.48 mGy.cm COMPARISON: None. FINDINGS: No acute intracranial hemorrhage, midline shift, intracranial mass, hydrocephalus, territorial ischem ia or abnormal extra-axial collection. Age-related involutional changes. White matter hypodensities s uggestive of chronic microvascular ischemic disease. Cerebral vascular calcifications. The calvarium is intact. Scattered lucent foci throughout the calvarium appear unchanged. The paranas al sinuses, mastoid air cells, and middle ear cavities are clear. Unremarkable soft tissues. Prior bi lateral lens repair. IMPRESSION: No acute intracranial abnormality. ACT 112: Negative or not required by law. The above report was generated using voice recognition software. It may contain grammatical, syntax o r spelling errors. Electronically signed by: Cholo Duke M.D. 10/22/2020 7:17 AM
[2020-10-22] MEDS ORDERED: hydrOXYzine HCl 25 MG TAB PO PRN (10:17)
[2020-10-22] MEDS: ACETAMINOPHEN 325 MG TAB PO PRN ×2 (10:34→22:15)
[2020-10-22] MEDS ORDERED: BETAMETHASONE DIP AUG (DIPROLENE) 0.05% CR 15 GM TUBE EXT PRN (10:43)
[2020-10-22] MEDS: METOPROLOL SUCC 25MG EXT REL TAB PO SCH (12:13)
[2020-10-22] MEDS: AMIODARONE 200 MG TAB PO SCH (12:13)
[2020-10-22] MEDS: WARFARIN SOD 1 MG TAB PO SCH (16:36)
--- NOTE | 2020-10-22 18:57 | Hospitalist Progress Note ---
Date of Service October 22, 2020 Assessment & Plan (1) COVID: (2) Generalized weakness: Plan: #. Fall and ambulatory dysfunction: #. COVID-19 No signs of urinary tract infection or pneumonia on the chest x-ray, but SARS-CoV-2 PCR positive. The patient is vaccinated with Moderna, last dose was on 04/30/2020. Currently, except for the weakness and headache, no other complaints. No shortness of breath, no cough. Hemodynamically stable and saturating fine on room air. Will get orthostatic vitals. White count slightly elevated and pro-Pool was positive. We will start her on rocephin. source of bacterial infection could not be located. Monitor CBC daily. Will monitor in the med tele. COVID precautions, airborne precautions. PT, OT when stable. #. Transaminitis: AST, ALT, and alkaline phosphatase mildly elevated. Chronic versus complaint of Covid infection. Follow repeat labs. #. Chronic kidney disease stage IV: Creatinine of 1.4-1.5, seems to be at baseline. #. Chronic diastolic congestive heart failure: Continue on digoxin, Toprol-XL. Not on any diuretics. Monitor for any volume overload. #. History of paroxysmal atrial fibrillation and tachybrady syndrome: Status post pacemaker. On rate control, digoxin and amiodarone, Toprol-XL and Coumadin. Follow the PT/INR. #. Depression: Continue her Lexapro. #. Hypothyroidism: Continue Synthroid. #. Hypertension: On Toprol-XL. Monitor blood pressure. #. History of restless legs syndrome: On Requip p.r.n. #. History of supraventricular tachycardia: On Toprol-XL. #. Deep venous thrombosis prophylaxis: On Coumadin. Follow PT/INR. Disposition: Likely need discharge to SNF. Admission and Anticipated Discharge Date Admission Date: October 22, 2020 Subjective Patient was sitting up in chair, and recently walked with Occupational Therapy at bedside exam, she got dizziness from the therapy, her blood pressure at the time was in 140s over 70s. Per patient she feels far better than what she came in with. She has been eating better today per her and per RN. Besides dizziness and some headache, she also reports being weak but no short of breath. Denies chest pain/palpitation or other review of symptoms. Physical Exam Physical Exam: GENERAL: Alert and oriented x3. NAD, on RA. HEENT: No pallor, no icterus. Pupils equal, round and reactive to light. Oral mucosa moist. NECK: No JVD, no neck masses. HEART: S1 and S2 heard. Regular rate and rhythm. No murmur, no gallop. RESPIRATORY SYSTEM: Normal AP diameter. No accessory muscle use. No wheezing, no crackles. ABDOMEN: Soft, bowel sounds present, nontender, no distention. CENTRAL NERVOUS SYSTEM: Alert and oriented x3. No facial droop. Speech is clear. Obeys simple commands. Moves extremities. EXTREMITIES: Trace edema, no erythema seen. Results & Data Results & Data ([facility]) Vital Signs (Past 12 Hours) Vital Signs Temp Pulse Pulse Resp BP BP Pulse Ox 10/22/20 17:00 61 10/22/20 15:16 36.4 C L 61 18 134/73 97 10/22/20 11:04 37.3 C 60 17 117/61 93 10/22/20 07:45 60 10/22/20 07:19 36.9 C 61 17 153/58 H 94
[2020-10-22] MEDS: cefTRIAXone SODIUM 1,000 MG in DEXTROSE 5% 50 ML IV SCH (20:33)
[2020-10-22] MEDS: ROSUVASTATIN CALCIUM 10 MG TAB PO SCH (20:34)
[2020-10-22] MEDS: GABAPENTIN 100 MG CAP PO SCH (20:34)
[2020-10-23] MEDS: rOPINIRole HCL 0.25 MG TABLET PO PRN ×2 (02:34→20:08)
[2020-10-23] MEDS: traMADol HCL 50 MG TABLET PO PRN ×2 (02:34→20:17)
[2020-10-23] MEDS: LEVOTHYROXINE SODIUM 50 MCG TABLET PO SCH (05:46)
[2020-10-23 06:25] LABS: Basophils # (auto) 0.02 K/uL (0-0.2); Basophils % (auto) 0.2 %; Eosinophils # (auto) 0.02 K/uL (0-0.5); Eosinophils % (auto) 0.2 %; Hematocrit (blood only) 33.9 % (37-47); Hemoglobin 10.8 g/dL (12.0-16.0); Immature Granulocytes # (auto) 0.02 K/uL (0.00-0.02); Immature Granulocytes % (auto) 0.2 %; Lymphocytes # (auto) 0.95 K/uL (1.2-3.4); Lymphocytes % (auto) 9.6 %; Mean Corpuscular Hemoglobin 29.3 pg (25-34); Mean Corpuscular Hgb Conc 31.9 g/dL (32-36); Mean Corpuscular Volume 92.1 fL (80-100); Mean Platelet Volume 11.6 fL (7.4-10.4); Monocytes # (auto) 1.04 K/uL (0.11-0.59); Monocytes % (auto) 10.5 %; Neutrophils # (auto) 7.81 K/uL (1.4-6.5); Neutrophils % (auto) 79.3 %; Platelet Count 200 K/uL (130-400); RDW Coefficient of Variation 17.3 % (11.5-14.5); RDW Standard Deviation 58.8 fL (36.4-46.3); Red Blood Count 3.68 M/uL (4.2-5.4); White Blood Count 9.86 K/uL (4.8-10.8)
[2020-10-23 06:33] LABS: INR 1.8 (0.9-1.1); Prothrombin Time 17.5 Seconds (9.0-12.0)
[2020-10-23 06:54] LABS: BUN Creatinine Ratio 10.4 (10-20); Blood Urea Nitrogen 13 mg/dl (7-18); Calcium 8.2 mg/dl (8.5-10.1); Carbon Dioxide 27 mmol/L (21-32); Chloride 100 mmol/L (98-107); Creatinine Clr Calc Pharmacy 22.3 ml/min; Est GFR (Non-African American) 38.9 ml/min; Glucose 83 mg/dl (70-99); Magnesium 2.1 mg/dl (1.8-2.4); Potassium 4.1 mmol/L (3.5-5.1); Sodium 133 mmol/L (136-145)
[2020-10-23 06:59] LABS: C Reactive Protein 5.15 mg/dl (0-0.29); Troponin I < 0.015 ng/ml (0-0.045)
--- NOTE | 2020-10-23 07:19 | CT Scan Report ---
HEAD CT NONCONTRAST CT DOSE: 537.48 mGy.cm HISTORY: Worsening headache. TECHNIQUE: Multiaxial CT images of the head were performed without the use of intravenous contrast. A utomated exposure control was utilized for this study. A dose lowering technique was utilized adheri ng to the principles of ALARA. Comparison: Head CT 10/22/2020. Findings: The paranasal sinuses and mastoid air cells are clear. The calvarium and skull base are int act. There is no mass, hematoma, midline shift, acute infarct. White matter hypodensity is nonspecifi c but suggestive of microvascular ischemic change. The ventricles and sulci demonstrate mild age-rela maynor involutional changes. Impression: No significant change compared to the prior study. No acute intracranial abnormality. ACT 112: Negative or not required by law. Electronically signed by: Benson Self M.D. 10/23/2020 7:18 AM
[2020-10-23] MEDS: CHOLECALCIFEROL 1,000 UNITS 25 MCG TAB PO SCH (07:51)
[2020-10-23] MEDS: ACETAMINOPHEN 325 MG TAB PO PRN ×2 (07:51→21:31)
[2020-10-23] MEDS: CETIRIZINE HCL 10 MG TABLET PO SCH (07:52)
[2020-10-23] MEDS: METOPROLOL SUCC 25MG EXT REL TAB PO SCH (07:52)
[2020-10-23] MEDS: AMIODARONE 200 MG TAB PO SCH (07:52)
[2020-10-23] MEDS: ESCITALOPRAM OXALATE 10 MG TAB PO SCH (07:52)
--- NOTE | 2020-10-23 13:35 | Hospitalist Progress Note ---
Date of Service October 23, 2020 Assessment & Plan (1) COVID: (2) Generalized weakness: Plan: #. Fall and ambulatory dysfunction: #. COVID-19 Chest x-ray without any acute findings. Patient was vaccinated with moderate on 04/30/2020. Currently patient remains on room air. Denies any respiratory symptoms. However, she does report feeling weak. Denies any headache or dizziness today. Patient did report persistent headache CT head on admission and overnight is negative for any acute findings. Hemodynamically patient is doing fine. WBC is within normal limit. Given elevation in procalcitonin and slight leukocytosis, patient was started on ceftriaxone for possible underlying bacterial source. No cultures were sent. COVID precautions, airborne precautions. Work with PT/OT. #. Transaminitis: AST, ALT, and alkaline phosphatase mildly elevated. Chronic versus complaint of Covid infection. Follow repeat labs. #. Chronic kidney disease stage IV: Creatinine of 1.4-1.5, seems to be at baseline. #. Chronic diastolic congestive heart failure: Continue on digoxin, Toprol-XL. Not on any diuretics. Monitor for any volume overload. #. History of paroxysmal atrial fibrillation and tachybrady syndrome: Status post pacemaker. On rate control, digoxin and amiodarone, Toprol-XL and Coumadin. INR today at 1.8. Will obtain digoxin level. #. Depression: Continue her Lexapro. #. Hypothyroidism: Continue Synthroid. #. Hypertension: On Toprol-XL. Monitor blood pressure. #. History of restless legs syndrome: On Requip p.r.n. #. History of supraventricular tachycardia: On Toprol-XL. #. Deep venous thrombosis prophylaxis: On Coumadin. INR today at 1.8. Disposition: Likely need discharge to SNF. Admission and Anticipated Discharge Date Admission Date: October 22, 2020 Subjective Patient reports that she feels rotten. States she feels weak. Denies any chest pain, shortness of breath or any cough. Denies any abdominal pain, diarrhea or dysuria. Review of Systems Review of Systems: All systems reviewed & are unremarkable except as noted in HPI & below Physical Exam Physical Exam: General: awake and alert HENT: NCAT, MMM, EOMI Eyes: PERRLA Neck: Supple, normal range of motion CVS: normal rate and rhythm Resp: b/l decrease breah tounds Abdomen: Soft, ND/NT, +BS Extremities: No c/c/e Neuro: face symmetric, strength grossly equal, no focal deficit Skin: warm and dry, no rashes/lesions/errythema MSK: normal ROM, no joint swelling/erythema Results & Data Results & Data ([facility]) Vital Signs (Past 12 Hours) Vital Signs Temp Pulse Pulse Resp BP BP Pulse Ox 10/23/20 11:20 36.7 C 63 18 132/64 95 10/23/20 07:33 63 10/23/20 07:03 36.9 C 60 18 170/73 H 95 10/23/20 03:03 36.7 C 62 20 150/71 H 97
[2020-10-23] MEDS ORDERED: WARFARIN SOD 2 MG TAB PO SCH (16:00)
[2020-10-23] MEDS: DIGOXIN 0.125 MG TAB PO SCH (16:18)
[2020-10-23] MEDS: cefTRIAXone SODIUM 1,000 MG in DEXTROSE 5% 50 ML IV SCH (20:07)
[2020-10-23] MEDS: GABAPENTIN 100 MG CAP PO SCH (20:08)
[2020-10-23] MEDS: ROSUVASTATIN CALCIUM 10 MG TAB PO SCH (20:08)
[2020-10-23] MEDS: ONDANSETRON INJ 2 MG/ML 2 ML VIAL IV PRN (21:32)
[2020-10-24] MEDS: LEVOTHYROXINE SODIUM 50 MCG TABLET PO SCH (05:41)
[2020-10-24 07:19] LABS: Basophils # (auto) 0.01 K/uL (0-0.2); Basophils % (auto) 0.1 %; Eosinophils # (auto) 0.03 K/uL (0-0.5); Eosinophils % (auto) 0.4 %; Hematocrit (blood only) 38.5 % (37-47); Hemoglobin 12.3 g/dL (12.0-16.0); Immature Granulocytes # (auto) 0.02 K/uL (0.00-0.02); Immature Granulocytes % (auto) 0.2 %; Lymphocytes # (auto) 1.05 K/uL (1.2-3.4); Lymphocytes % (auto) 12.3 %; Mean Corpuscular Hemoglobin 28.9 pg (25-34); Mean Corpuscular Hgb Conc 31.9 g/dL (32-36); Mean Corpuscular Volume 90.4 fL (80-100); Mean Platelet Volume 11.9 fL (7.4-10.4); Monocytes # (auto) 0.85 K/uL (0.11-0.59); Monocytes % (auto) 9.9 %; Neutrophils % (auto) 77.1 %; Platelet Count 204 K/uL (130-400); RDW Coefficient of Variation 17.2 % (11.5-14.5); RDW Standard Deviation 56.9 fL (36.4-46.3); Red Blood Count 4.26 M/uL (4.2-5.4); White Blood Count 8.56 K/uL (4.8-10.8)
[2020-10-24 07:41] LABS: INR 1.5 (0.9-1.1); Prothrombin Time 15.2 Seconds (9.0-12.0)
[2020-10-24 07:48] LABS: Albumin Level 2.9 gm/dl (3.4-5.0); BUN Creatinine Ratio 10.4 (10-20); Calcium 8.5 mg/dl (8.5-10.1); Creatinine Clr Calc Pharmacy 21.4 ml/min; Est GFR (African American) 42.9 ml/min
[2020-10-24 07:51] LABS: Albumin Globulin Ratio 0.7 (0.9-2); Bilirubin,Total 0.6 mg/dl (0.2-1); Globulin 4.2 gm/dl (2.5-4.0); Total Protein 7.1 gm/dl (6.4-8.2)
[2020-10-24] MEDS: AMIODARONE 200 MG TAB PO SCH (09:17)
[2020-10-24] MEDS: CETIRIZINE HCL 10 MG TABLET PO SCH (09:17)
[2020-10-24] MEDS: CHOLECALCIFEROL 1,000 UNITS 25 MCG TAB PO SCH (09:18)
[2020-10-24] MEDS: METOPROLOL SUCC 25MG EXT REL TAB PO SCH (09:18)
[2020-10-24] MEDS: ESCITALOPRAM OXALATE 10 MG TAB PO SCH (09:18)
[2020-10-24] MEDS: rOPINIRole HCL 0.25 MG TABLET PO PRN (09:25)
--- NOTE | 2020-10-24 13:47 | Hospitalist Progress Note ---
Date of Service October 24, 2020 Assessment & Plan (1) COVID: (2) Generalized weakness: Plan: #. Fall and ambulatory dysfunction: #. COVID-19 Chest x-ray without any acute findings. Patient was vaccinated with moderate on 04/30/2020. Currently patient remains on room air. Denies any respiratory symptoms. However, she does report feeling weak. Denies any headache or dizziness today. Patient did report persistent headache CT head on admission and overnight is negative for any acute findings. Hemodynamically patient is doing fine. WBC is within normal limit. T. max of 38.8 last evening. Given elevation in procalcitonin and slight leukocytosis, patient was started on ceftriaxone for possible underlying bacterial source. D/C ceftriaxone today and monitor. However, no cultures were sent. TAO mosqueda on admiision. Blood cultures were sent. If patient is afebrile and no laboratory concerns; patient can be discharged tomorrow. COVID precautions, airborne precautions. Work with PT/OT. #. Transaminitis: AST, ALT, and alkaline phosphatase mildly elevated. Today more significantly elecated. 04/02 covid? congestion? will obtain pro-bnp. Will give one dose of IV lasix 20 mg now. #. Chronic kidney disease stage IV: Creatinine of 1.4-1.5, seems to be at baseline. Today at 1.28 #. Chronic diastolic congestive heart failure: Continue on digoxin, Toprol-XL. Not on any diuretics. Monitor for any volume overload. #. History of paroxysmal atrial fibrillation and tachybrady syndrome: Status post pacemaker. On rate control, digoxin and amiodarone, Toprol-XL and Coumadin. INR today at 1.5. Digoxin level OK. #. Depression: Continue her Lexapro. #. Hypothyroidism: Continue Synthroid. #. Hypertension: On Toprol-XL. Monitor blood pressure. #. History of restless legs syndrome: On Requip p.r.n. #. History of supraventricular tachycardia: On Toprol-XL. #. Deep venous thrombosis prophylaxis: On Coumadin. INR today at 1.5 Disposition: Likely need discharge to SNF. Admission and Anticipated Discharge Date Admission Date: October 22, 2020 Subjective Patient is awake, alert and oriented x3. States she feels rotten and states that that she is going to . Denies any headache today. Denies any chest pain, shortness of breath or any cough. Denies any nausea or vomiting. Patient has been pleasantly confused. Review of Systems Review of Systems: All systems reviewed & are unremarkable except as noted in HPI & below Physical Exam Physical Exam: General: awake and alert, HENT: NCAT, MMM, EOMI Eyes: PERRLA Neck: Supple, normal range of motion CVS: normal rate and rhythm Resp: b/l decrease breah tounds Abdomen: Soft, ND/ND Extremities: No c/c/e Neuro: face symmetric, strength grossly equal, no focal deficit Skin: warm and dry, no rashes/lesions/errythema MSK: normal ROM, no joint swelling/erythema Results & Data Results & Data ([facility]) Vital Signs (Past 12 Hours) Vital Signs Temp Pulse Resp BP Pulse Ox 10/24/20 11:36 36.8 C 61 18 131/63 92 10/24/20 07:24 36.6 C 66 18 179/89 H 94 10/24/20 03:32 36.6 C 60 18 120/61 94
[2020-10-24] MEDS ORDERED: FUROSEMIDE 20 MG in SYRINGE 0 ML IV ONE (13:50)
[2020-10-24] MEDS: ONDANSETRON INJ 2 MG/ML 2 ML VIAL IV PRN (14:41)
[2020-10-24] MEDS: WARFARIN SOD 1 MG TAB PO SCH (15:50)
[2020-10-24] MEDS: ACETAMINOPHEN 325 MG TAB PO PRN (15:54)
[2020-10-24] MEDS: ROSUVASTATIN CALCIUM 10 MG TAB PO SCH (20:00)
[2020-10-24] MEDS: GABAPENTIN 100 MG CAP PO SCH (20:00)
[2020-10-25] MEDS: ACETAMINOPHEN 325 MG TAB PO PRN (04:35)
[2020-10-25] MEDS: LEVOTHYROXINE SODIUM 50 MCG TABLET PO SCH (06:13)
[2020-10-25 07:32] LABS: INR 1.7 (0.9-1.1); Prothrombin Time 16.4 Seconds (9.0-12.0)
[2020-10-25 08:25] LABS: BUN Creatinine Ratio 12.3 (10-20); Calcium 8.1 mg/dl (8.5-10.1); Creatinine Clr Calc Pharmacy 16.8 ml/min; Est GFR (Non-African American) 27.6 ml/min; Potassium 3.4 mmol/L (3.5-5.1)
[2020-10-25] MEDS: AMIODARONE 200 MG TAB PO SCH (09:04)
[2020-10-25] MEDS: CHOLECALCIFEROL 1,000 UNITS 25 MCG TAB PO SCH (09:05)
[2020-10-25] MEDS: CETIRIZINE HCL 10 MG TABLET PO SCH (09:06)
[2020-10-25] MEDS: ESCITALOPRAM OXALATE 10 MG TAB PO SCH (09:06)
[2020-10-25] MEDS: METOPROLOL SUCC 25MG EXT REL TAB PO SCH (09:07)
[2020-10-25] MEDS ORDERED: POTASSIUM CHLORIDE CRTAB 20 MEQ TABCR PO STA ×2 (09:28→12:52)
--- NOTE | 2020-10-25 11:42 | Hospitalist Progress Note ---
Date of Service October 25, 2020 Assessment & Plan (1) COVID: Plan: Covid positive and afebrile but without chest x-ray findings of pneumonia. She is oxygenating 93% on room air. Delirium precludes identification of symptoms. Discussed with daughter Jason about scheduled Tylenol to help with any possible pain with noted facial grimacing today. Jason was in favor of this and states mom typically doesn't tell her caregivers when she is having difficulties. She was afebrile in the last 24 hours but had a temperature of 38.82 nights ago. She was on ceftriaxone given an elevation in procalcitonin 0.52 with 0.5 being the upper limit of normal. She also had a mild leukocytosis of 10.8 which has resolved. She was placed empirically on ceftriaxone which has been stopped. There is no clear source of bacterial infection at this time. Continue supportive care for delirium and weakness in the setting of COVID-19 infection. (2) Generalized weakness: Plan: Likely secondary to Covid infection and chronic comorbidities. PT OT as tolerated. Patient will likely need SNF as a transition home. Of note she was having recurrent falls and worsening balance per daughter the 2 weeks prior to admission. (3) RLS (restless legs syndrome): Plan: Ropinorole PRN and gabapentin scheduled at night per home regimen. (4) Atrial fibrillation: Plan: Paced rhythm on telemetry, daughter states she is 100% paced. Cont amio, digoxin and warfarin per home regimen. (5) Transaminitis: Plan: LFTs elevated yesterday, will trend in am. Uncertain etiology...possibly covid infection vs other. No ultrasound available in the covid unit at this time. Benign abdomen and she is tolerating PO per nursing notes. Hold statin and trend in am. (6) Acute kidney injury superimposed on chronic kidney disease: Plan: Possibly related to dehydration after poor PO intake and recent lasix use. IVF and repeat BMP in am. (7) Hyponatremia: Plan: Incontinence today lead to unmeasured voids, and patient did receive one dose of Lasix yesterday evening. Na 130 this morning with a new CHASITY, likely related to dehydration. Repeat Na in PM is 129. Will give 1L IVF overnight and trend in am. W ill also empirically treat for pain with Tylenol. (8) DVT prophylaxis: Plan: warfarin DNR/DNI per Jason, daughter, POA Dispo-uncertain at this time. Karishma Rodriguez [facility] and Anticipated Discharge Date Admission Date: October 22, 2020 Subjective 89-year-old female with multiple medical problems presented with generalized weakness, recurrent falling at home, and found to have COVID-19 infection. Today, the patient is delirious and review of systems is unobtainable She is grimacing as if she is in pain She is able to follow some instructions with significant prompting I spoke with her daughter Jason with whom she lives. Jason informed me that over the past 2 weeks the patient has needed assistance with walking, however, at baseline she walks independently with a walker. Jason states the patient sleeps 10 hours a day and tends to . She also confirms that she is a DNR and the CODE STATUS was changed. Paperwork reflects Jason to be the POA. Review of Systems Review of Systems: Could not obtain review of systems 2/2 confusion Physical Exam Physical Exam: CONSTITUTIONAL: thin, elderly, frail, vitals as above, generally ill-appearing EYES: normal conjunctivae, no scleral icterus ENT: external ear and nose normal NECK: trachea midline RESPIRATORY: clear to auscultation bilaterally, no crackles, rales or wheezes, normal respiratory effort--limited test as patient is not following instructions to take a deep breath. CARDIOVASCULAR: regular rate and rhythm, S1 and 2 heard without murmurs, gallops or rubs, no JVD, no peripheral edema GASTROINTESTINAL: soft, nontender, nondistended, no guarding. MUSCULOSKELETAL: strength 5/5 throughout, head is normocephalic and atraumatic SKIN: warm and dry NEUROLOGIC: CN 2-12 grossly intact, sleeping when I arrived and able to sit up without much help, remained lethargic and had difficulty following instructions, minimally verbal. PSYCHIATRIC: delirium likely, patient cannot confirm orientation questions for me. Results & Data Results & Data ([facility]) Vital Signs (Past 12 Hours) Vital Signs Temp Pulse Pulse Resp BP Pulse Ox 10/25/20 11:08 37.4 C 63 18 115/60 93 10/25/20 10:31 70 10/25/20 07:29 36.9 C 64 18 155/67 H 94 10/25/20 04:04 36.7 C 72 17 137/71 94 Laboratory Results [facility] 10/25/20 06:50 Sodium 130 L Potassium 3.4 L Chloride 97 L Carbon Dioxide 26 BUN 20 H D Creatinine 1.63 H D Glucose 99 Calcium 8.1 L Medications Administered Current Inpatient Medications Acetaminophen (Acetaminophen 325 Mg Tab) 650 mg PO Q4H PRN PRN Reason: Pain or Fever Stop: 11/21/20 06:05 Last Admin: 10/25/20 04:35 Dose: 650 mg Documented by: Amiodarone HCl (Amiodarone 200 Mg Tab) 200 mg PO DAILY JAKI Stop: 11/21/20 10:29 Last Admin: 10/25/20 09:04 Dose: 200 mg Documented by: Betamethasone Dipropion Augmented (Betamethasone Dip Aug (Diprolene) 0.05% Cr 15 Gm Tube) 1 appln EXT BID PRN PRN Reason: Itching Stop: 11/21/20 10:42 Last Admin: 10/23/20 16:21 Dose: 1 appln Documented by: Cetirizine HCl (Cetirizine Hcl 10 Mg Tablet) 5 mg PO DAILY [facility] Stop: 11/22/20 08:59 Last Admin: 10/25/20 09:06 Dose: 5 mg Documented by: Digoxin (Digoxin 0.125 Mg Tab) 0.125 mg PO MoWeFr@1600 [facility] Stop: 11/22/20 15:59 Last Admin: 10/23/20 16:18 Dose: 0.125 mg Documented by: Escitalopram Oxalate (Escitalopram Oxalate 10 Mg Tab) 5 mg PO DAILY JAKI Stop: 11/22/20 08:59 Last Admin: 10/25/20 09:06 Dose: 5 mg Documented by: Gabapentin (Gabapentin 100 Mg Cap) 100 mg PO HS [facility] Stop: 11/21/20 20:59 Last Admin: 10/24/20 20:00 Dose: 100 mg Documented by: Hydroxyzine HCl (Hydroxyzine Hcl 25 Mg Tab) 25 mg PO Q6 PRN PRN Reason: Itching Stop: 11/21/20 10:16 Levothyroxine Sodium (Levothyroxine Sodium 50 Mcg Tablet) 50 mcg PO DAILY@0600 JAKI Stop: 11/22/20 05:59 Last Admin: 10/25/20 06:13 Dose: 50 mcg Documented by: Metoprolol Succinate (Metoprolol Succ 25mg Ext Rel Tab) 25 mg PO DAILY [facility] Stop: 11/21/20 10:29 Last Admin: 10/25/20 09:07 Dose: 25 mg Documented by: Miscellaneous (Ammonium Lactate Cream ~ Order Awaiting Action) 1 ea N/A QS [facility] Stop: 11/21/20 15:59 Last Admin: 10/25/20 09:04 Dose: Not Given Documented by: Nitroglycerin (Nitroglycerin Sl 0.4 Mg/Tab Tab) 0.4 mg SL UD PRN PRN Reason: Chest Pain Stop: 11/21/20 06:05 Nitroglycerin (Nitroglycerin Sl 0.4 Mg/Tab Tab) 0.4 mg SL Q5M PRN PRN Reason: Chest Pain Stop: 11/21/20 10:16 Ondansetron HCl (Ondansetron Inj 2 Mg/Ml 2 Ml Vial) 4 mg IV Q6H PRN PRN Reason: Nausea Stop: 11/21/20 06:05 Last Admin: 10/24/20 14:41 Dose: 4 mg Documented by: Polyethylene Glycol (Polyethylene (Miralax) 17 Gm Pack) 17 gm PO DAILY PRN PRN Reason: Constipation Stop: 11/21/20 06:05 Ropinirole HCl (Ropinirole Hcl 0.25 Mg Tablet) 0.5 mg PO BID PRN PRN Reason: Restless Leg(S) Stop: 11/21/20 10:16 Last Admin: 10/24/20 09:25 Dose: 0.5 mg Documented by: Rosuvastatin Calcium (Rosuvastatin Calcium 10 Mg Tab) 10 mg PO HS [facility] Stop: 11/21/20 20:59 Last Admin: 10/24/20 20:00 Dose: 10 mg Documented by: Tramadol HCl (Tramadol Hcl 50 Mg Tablet) 25 mg PO Q8H PRN PRN Reason: pain Stop: 11/21/20 10:16 Last Admin: 10/23/20 20:17 Dose: 25 mg Documented by: Vitamin D (Cholecalciferol 1,000 Units 25 Mcg Tab) 2,000 units PO DAILY [facility] Stop: 11/22/20 08:59 Last Admin: 10/25/20 09:05 Dose: 2,000 units Documented by: Warfarin Sodium (Warfarin Sod 2 Mg Tab) 2 mg PO DAILY@1600 [facility] Stop: 11/24/20 15:59 Zinc Acetate/Diphenhydramine (Diphenhydramine 2%/Zinc 0.1% Cream 28gm Tube) 1 appln EXT QID PRN PRN Reason: Itching Stop: 11/21/20 10:16
--- NOTE | 2020-10-25 15:15 | Electrocardiogram Report ---
Test Reason : Blood Pressure : / mmHG Vent. Rate : 060 BPM Atrial Rate : 060 BPM P-R Int : 266 ms QRS Dur : 094 ms QT Int : 462 ms P-R-T Axes : 000 -35 035 degrees QTc Int : 462 ms Atrial-paced rhythm with prolonged AV conduction Left axis deviation Abnormal ECG When compared with ECG of 10-AUG-2020 18:48, No significant change was found Confirmed by Lenny Grove ([id number]) on 10/25/2020 3:15:01 PM Referred By: REFERRED SELF Confirmed By:Lenny Grove
[2020-10-25] MEDS: WARFARIN SOD 2 MG TAB PO SCH (16:43)
[2020-10-25] MEDS: DIGOXIN 0.125 MG TAB PO SCH (16:43)
[2020-10-25] MEDS: rOPINIRole HCL 0.25 MG TABLET PO PRN (16:44)
[2020-10-25 18:48] LABS: BUN Creatinine Ratio 11.7 (10-20); Calcium 7.8 mg/dl (8.5-10.1); Est GFR (African American) 30.2 ml/min; Est GFR (Non-African American) 26.1 ml/min; Potassium 3.9 mmol/L (3.5-5.1)
[2020-10-25] MEDS: ACETAMINOPHEN 500 MG TAB PO SCH (21:10)
[2020-10-25] MEDS: GABAPENTIN 100 MG CAP PO SCH (21:10)
[2020-10-25] MEDS: ROSUVASTATIN CALCIUM 10 MG TAB PO SCH (21:10)
[2020-10-25] MEDS ORDERED: SODIUM CHLORIDE 0.9% 1000ML 1,000 ML IV SCH (21:45)
[2020-10-25] MEDS: ASCORBIC ACID 500 MG TAB PO SCH (21:47)
[2020-10-26] MEDS: LEVOTHYROXINE SODIUM 50 MCG TABLET PO SCH (05:36)
[2020-10-26 06:51] LABS: Hematocrit (blood only) 32.7 % (37-47); Hemoglobin 10.6 g/dL (12.0-16.0); Mean Corpuscular Hemoglobin 28.9 pg (25-34); Mean Corpuscular Hgb Conc 32.4 g/dL (32-36); Mean Corpuscular Volume 89.1 fL (80-100); Mean Platelet Volume 11.6 fL (7.4-10.4); Platelet Count 187 K/uL (130-400); RDW Coefficient of Variation 17.1 % (11.5-14.5); RDW Standard Deviation 56.4 fL (36.4-46.3); Red Blood Count 3.67 M/uL (4.2-5.4); White Blood Count 8.63 K/uL (4.8-10.8)
[2020-10-26 07:04] LABS: INR 1.9 (0.9-1.1); Prothrombin Time 18.3 Seconds (9.0-12.0)
[2020-10-26 07:08] LABS: Albumin Level 2.5 gm/dl (3.4-5.0); BUN Creatinine Ratio 12.2 (10-20); C Reactive Protein 4.17 mg/dl (0-0.29); Calcium 7.7 mg/dl (8.5-10.1); Est GFR (African American) 34.9 ml/min; Est GFR (Non-African American) 30.1 ml/min; Magnesium 2.2 mg/dl (1.8-2.4); Potassium 3.5 mmol/L (3.5-5.1)
[2020-10-26 07:22] LABS: Bilirubin Direct 0.2 mg/dl (0-0.2); Bilirubin,Total 0.7 mg/dl (0.2-1); Phosphorus 2.2 mg/dl (2.5-4.9); Total Protein 5.8 gm/dl (6.4-8.2)
[2020-10-26] MEDS: ACETAMINOPHEN 500 MG TAB PO SCH ×3 (09:03→22:13)
[2020-10-26] MEDS: AMIODARONE 200 MG TAB PO SCH (09:03)
[2020-10-26] MEDS: METOPROLOL SUCC 25MG EXT REL TAB PO SCH (09:04)
[2020-10-26] MEDS: ESCITALOPRAM OXALATE 10 MG TAB PO SCH (09:05)
[2020-10-26] MEDS: ZINC SULFATE 220 MG CAPSULE PO SCH (09:06)
[2020-10-26] MEDS: ASCORBIC ACID 500 MG TAB PO SCH ×2 (09:06→19:58)
[2020-10-26] MEDS: CHOLECALCIFEROL 1,000 UNITS 25 MCG TAB PO SCH ×3 (09:07→09:24)
[2020-10-26] MEDS: rOPINIRole HCL 0.25 MG TABLET PO PRN ×2 (09:22→20:05)
[2020-10-26] MEDS ORDERED: PIPERACILL/TAZOBAC CONSULT ACTIVE PRN (10:52)
[2020-10-26] MEDS ORDERED: PIPERACILLIN/TAZOBACTAM 3.375 GM in DEXTROSE 5% 100 ML IV ONE (11:00)
--- NOTE | 2020-10-26 12:10 | Ultrasound Report ---
ULTRASOUND RIGHT UPPER QUADRANT ABDOMEN CLINICAL HISTORY: Change in mental status. Abnormal serum laboratory studies. Covid. COMPARISON STUDY: Abdominal CT dated 08/15/2017. TECHNIQUE: Real-time, grayscale, and color flow sonography of the right upper quadrant of the abdomen was performed. Images are reviewed in the transverse and longitudinal planes. FINDINGS: Liver: The liver is normal in size and echotexture. There is mild intrahepatic biliary ductal dilatat ion. The main portal vein is patent. Gallbladder: The gallbladder is normal in appearance. No gallstones are identified. There is no gallb ladder wall thickening or pericholecystic fluid. A sonographic Mix's sign is reportedly absent. Th e common bile duct measures up to 1.3 cm in diameter. Pancreas: Visualized portions of the pancreatic head and body are normal in appearance. Right kidney: Survey images of the right kidney demonstrate normal size and echotexture. There is no hydronephrosis. Ascites: None. IMPRESSION: 1. No acute sonographic abnormality is seen in the right upper quadrant. 2. There is intra and extrahepatic biliary ductal dilatation, nonspecific and similar in appearance t o a [address] scan. 3. No gallstones are identified. ACT 112: Negative or not required by law. Electronically signed by: Maxwell Rausch M.D. 10/26/2020 12:08 PM
[2020-10-26 12:47] LABS: Appearance Urine Clear (Clear); Bacteria Urine Automated Negative (Negative); Bilirubin Urine Negative (Negative); Blood Urine Negative (Negative); Color Urine Yellow; Epithelial Cell Urine Auto 20-30 /lpf (0-5); Glucose Urine UA Negative (Negative); Ketones Urine Negative (Negative); Leukocyte Esterase Urine Negative (Negative); Nitrite Urine Negative (Negative); Protein Urine 1+ (Negative); RBC Urine Automated 0-4 /hpf (0-4); Specific Gravity Urine 1.011 (1.000-1.030); Urobilinogen Urine Negative (Negative); pH Urine 6.5 (4.5-7.5)
--- NOTE | 2020-10-26 13:57 | Hospitalist Progress Note ---
Date of Service October 26, 2020 Assessment & Plan (1) COVID: Plan: Covid positive and afebrile but without chest x-ray findings of pneumonia. She is oxygenating 94% on room air. Delirium has resolved after addressing acute urinary retention. Other interventions include scheduled Tylenol started yesterday, started zosyn in setting of elevated LFTs and continued delirium while awaiting RUQ results and repeat UA results. RUQ us was negative for cholecystitis and physical exam also does not support an intra-abdominal process. LFTs elevation may be from her covid infection vs meds, or other etiology. Cont antibiotics in setting of persistently elevated procalcitonin. (2) Generalized weakness: Plan: Likely secondary to Covid infection and chronic comorbidities. PT/OT as tolerated. Patient will likely need SNF as a transition home. Of note she was having recurrent falls and worsening balance per daughter the 2 weeks prior to admission. (3) RLS (restless legs syndrome): Plan: Ropinorole PRN and gabapentin scheduled at night per home regimen. (4) Atrial fibrillation: Plan: Paced rhythm noted this admission. Cont amio, digoxin and warfarin per home regimen. (5) Transaminitis: Plan: Benign abdomen and she is tolerating PO, LFTs trending down. RUQ us was normal today. Hold statin and repeat in a couple of days. Etiology considerations as above. (6) Acute kidney injury superimposed on chronic kidney disease: Plan: Possibly related to dehydration after poor PO intake and recent lasix use. Improved with IVF. Pt is drinking adequate amount of liquids per nursing staff. (7) Hyponatremia: Plan: Likely related to dehydration, improved with IV fluids overnight. (8) Acute urinary retention: Plan: Uncertain etiology his repeat urinalysis is negative for infection. She is not received any anticholinergic agents. Continue to reassess for other causes. Maintain Moody catheter. (9) DVT prophylaxis: Plan: warfarin DNR/DNI Dispo-uncertain at this time. DO [facility] Admission and Anticipated Discharge Date Admission Date: October 22, 2020 Subjective 89-year-old female with multiple medical problems presented with generalized weakness, recurrent falling at home, and found to have COVID-19 infection. Delirium has resolved after moody catheter placed for acute urinary retention She was found to be retaining 1L overnight with 1L straight cath performed. On recheck this am, again retaining 1L (on IVF overnight) and moody placed She had a large episode of BM and had a vagal episode where she became presyncopal but improved once in bed with vitals signs stable. She is tolerating PO Reports feeling terrible, but much more oriented now. Cannot specify which symptoms, exactly Denies nausea or pain Review of Systems Review of Systems: At least ten systems were reviewed and negative except as indicated in HPI above. Physical Exam Physical Exam: CONSTITUTIONAL: thin, elderly, frail, vitals as above, generally ill-appearing EYES: normal conjunctivae, no scleral icterus ENT: external ear and nose normal NECK: trachea midline RESPIRATORY: clear to auscultation bilaterally, no crackles, rales or wheezes, normal respiratory effort--limited test as patient is not following instructions to take a deep breath. CARDIOVASCULAR: regular rate and rhythm, S1 and 2 heard without murmurs, gallops or rubs, no JVD, no peripheral edema GASTROINTESTINAL: soft, nontender, nondistended, no guarding. : moody in place draining clear yellow urine. MUSCULOSKELETAL: generalized weakness, nonfocal, head is normocephalic and atraumatic SKIN: warm and dry, appears to have erythematous rash as a reaction to prior cardiac leads. NEUROLOGIC: CN 2-12 grossly intact, no gross focal deficits. PSYCHIATRIC: alert and oriented x 3, following instructions and delirium has resolved. Results & Data Results & Data ([facility]) Vital Signs (Past 12 Hours) Vital Signs Temp Pulse Resp BP BP Pulse Ox 10/26/20 11:21 36.6 C 61 18 111/41 L 92 10/26/20 07:44 36.8 C 66 17 135/64 96 10/26/20 03:11 36.5 C 61 20 154/72 H 94 Laboratory Results Short CBC 10/26/20 Range/Units 05:51 WBC 8.63 (4.8-10.8) K/uL Hgb 10.6 L (12.0-16.0) g/dL Hct 32.7 L (37-47) % Plt Count 187 (130-400) K/uL BMP 10/25/20 10/26/20 18:10 05:51 Sodium 129 L 134 L Potassium 3.9 3.5 Chloride 97 L 103 Carbon Dioxide 25 26 BUN 20 H 19 H Creatinine 1.71 H 1.52 H Glucose 131 H 85 Calcium 7.8 L 7.7 L Cardiac Enzymes 10/26/20 Range/Units 05:51 Total Creatine Kinase 103 (26-192) U/L Liver Function 10/26/20 Range/Units 05:51 Total Bilirubin 0.7 (0.2-1) mg/dl Direct Bilirubin 0.2 (0-0.2) mg/dl AST 225 H (15-37) U/L ALT 163 H (12-78) U/L Alkaline Phosphatase 141 H (45-117) U/L Albumin 2.5 L (3.4-5.0) gm/dl Urine 10/26/20 Range/Units 12:39 Urine Color Yellow Urine Appearance Clear (Clear) Urine pH 6.5 (4.5-7.5) Ur Specific [place] 1.011 (1.000-1.030) Urine Protein 1+ H (Negative) Urine Glucose (UA) Negative (Negative) Medications Administered Current Inpatient Medications Acetaminophen (Acetaminophen 500 Mg Tab) 1,000 mg PO TID [facility] Stop: 10/27/20 14:01 Last Admin: 10/26/20 09:03 Dose: 1,000 mg Documented by: Amiodarone HCl (Amiodarone 200 Mg Tab) 200 mg PO DAILY [facility] Stop: 11/21/20 10:29 Last Admin: 10/26/20 09:03 Dose: 200 mg Documented by: Ascorbic Acid (Ascorbic Acid 500 Mg Tab) 500 mg PO BID [facility] Stop: 11/24/20 20:59 Last Admin: 10/26/20 09:06 Dose: 500 mg Documented by: Betamethasone Dipropion Augmented (Betamethasone Dip Aug (Diprolene) 0.05% Cr 15 Gm Tube) 1 appln EXT BID PRN PRN Reason: Itching Stop: 11/21/20 10:42 Last Admin: 10/23/20 16:21 Dose: 1 appln Documented by: Digoxin (Digoxin 0.125 Mg Tab) 0.125 mg PO MoWeFr@1600 [facility] Stop: 11/22/20 15:59 Last Admin: 10/25/20 16:43 Dose: 0.125 mg Documented by: Escitalopram Oxalate (Escitalopram Oxalate 10 Mg Tab) 5 mg PO DAILY [facility] Stop: 11/22/20 08:59 Last Admin: 10/26/20 09:05 Dose: 5 mg Documented by: Gabapentin (Gabapentin 100 Mg Cap) 100 mg PO HS [facility]AKI Stop: 11/21/20 20:59 Last Admin: 10/25/20 21:10 Dose: 100 mg Documented by: Hydroxyzine HCl (Hydroxyzine Hcl 25 Mg Tab) 25 mg PO Q6 PRN PRN Reason: Itching Stop: 11/21/20 10:16 Piperacillin Sod/Tazobactam (Sod 3.375 gm/ Dextrose) 115 mls @ 28.75 mls/hr IV Q12H JAKI; Protocol Stop: 11/05/20 19:59 Levothyroxine Sodium (Levothyroxine Sodium 50 Mcg Tablet) 50 mcg PO DAILY@0600 [facility] Stop: 11/22/20 05:59 Last Admin: 10/26/20 05:36 Dose: 50 mcg Documented by: Metoprolol Succinate (Metoprolol Succ 25mg Ext Rel Tab) 25 mg PO DAILY [facility] Stop: 11/21/20 10:29 Last Admin: 10/26/20 09:04 Dose: 25 mg Documented by: Miscellaneous Information (Piperacill/Tazobac Consult Active) 1 ea N/A UD PRN PRN Reason: Consult Stop: 11/25/20 10:51 Nitroglycerin (Nitroglycerin Sl 0.4 Mg/Tab Tab) 0.4 mg SL UD PRN PRN Reason: Chest Pain Stop: 11/21/20 06:05 Nitroglycerin (Nitroglycerin Sl 0.4 Mg/Tab Tab) 0.4 mg SL Q5M PRN PRN Reason: Chest Pain Stop: 11/21/20 10:16 Ondansetron HCl (Ondansetron Inj 2 Mg/Ml 2 Ml Vial) 4 mg IV Q6H PRN PRN Reason: Nausea Stop: 11/21/20 06:05 Last Admin: 10/24/20 14:41 Dose: 4 mg Documented by: Polyethylene Glycol (Polyethylene (Miralax) 17 Gm Pack) 17 gm PO DAILY PRN PRN Reason: Constipation Stop: 11/21/20 06:05 Ropinirole HCl (Ropinirole Hcl 0.25 Mg Tablet) 0.5 mg PO BID PRN PRN Reason: Restless Leg(S) Stop: 11/21/20 10:16 Last Admin: 10/26/20 09:22 Dose: 0.5 mg Documented by: Rosuvastatin Calcium (Rosuvastatin Calcium 10 Mg Tab) 10 mg PO HS [facility] Stop: 11/21/20 20:59 Last Admin: 10/25/20 21:10 Dose: 10 mg Documented by: Tramadol HCl (Tramadol Hcl 50 Mg Tablet) 25 mg PO Q8H PRN PRN Reason: pain Stop: 11/21/20 10:16 Last Admin: 10/23/20 20:17 Dose: 25 mg Documented by: Vitamin D (Cholecalciferol 1,000 Units 25 Mcg Tab) 1,000 units PO [facility] Stop: 11/25/20 08:59 Last Admin: 10/26/20 09:22 Dose: 1,000 units Documented by: Warfarin Sodium (Warfarin Sod 2 Mg Tab) 2 mg PO DAILY@1600 [facility] Stop: 11/24/20 15:59 Last Admin: 10/25/20 16:43 Dose: 2 mg Documented by: Zinc Acetate/Diphenhydramine (Diphenhydramine 2%/Zinc 0.1% Cream 28gm Tube) 1 appln EXT QID PRN PRN Reason: Itching Stop: 11/21/20 10:16 Zinc Sulfate (Zinc Sulfate 220 Mg Capsule) [facility] Stop: 11/25/20 08:59 Last Admin: 10/26/20 09:06 Dose: 220 mg Documented by:
[2020-10-26] MEDS: WARFARIN SOD 2 MG TAB PO SCH (17:46)
[2020-10-26] MEDS ORDERED: SODIUM CHLORIDE 0.9% 1000ML 1,000 ML IV SCH (19:00)
[2020-10-26] MEDS: PIPERACILLIN/TAZOBACTAM 3.375 GM in DEXTROSE 5% 100 ML IV SCH (19:56)
[2020-10-26] MEDS: GABAPENTIN 100 MG CAP PO SCH (20:00)
[2020-10-27] MEDS: LEVOTHYROXINE SODIUM 50 MCG TABLET PO SCH (05:26)
[2020-10-27 06:53] LABS: Hemoglobin 10.9 g/dL (12.0-16.0); Mean Corpuscular Hgb Conc 32.1 g/dL (32-36); Mean Corpuscular Volume 90.4 fL (80-100); Mean Platelet Volume 11.6 fL (7.4-10.4); Platelet Count 196 K/uL (130-400); RDW Coefficient of Variation 17.4 % (11.5-14.5); RDW Standard Deviation 57.5 fL (36.4-46.3); Red Blood Count 3.76 M/uL (4.2-5.4); White Blood Count 8.49 K/uL (4.8-10.8)
[2020-10-27 07:26] LABS: BUN Creatinine Ratio 10.2 (10-20); C Reactive Protein 3.92 mg/dl (0-0.29); Calcium 7.8 mg/dl (8.5-10.1); Creatinine Clr Calc Pharmacy 22.5 ml/min; Est GFR (African American) 45.5 ml/min; Est GFR (Non-African American) 39.2 ml/min; Potassium 3.5 mmol/L (3.5-5.1)
[2020-10-27 07:42] LABS: INR 2.9 (0.9-1.1)
[2020-10-27] MEDS: PIPERACILLIN/TAZOBACTAM 3.375 GM in DEXTROSE 5% 100 ML IV SCH (08:40)
[2020-10-27] MEDS: CHOLECALCIFEROL 1,000 UNITS 25 MCG TAB PO SCH (08:42)
[2020-10-27] MEDS: ACETAMINOPHEN 500 MG TAB PO SCH ×2 (08:42→14:24)
[2020-10-27] MEDS: ESCITALOPRAM OXALATE 10 MG TAB PO SCH (08:43)
[2020-10-27] MEDS: ZINC SULFATE 220 MG CAPSULE PO SCH (08:44)
[2020-10-27] MEDS: AMIODARONE 200 MG TAB PO SCH (08:44)
[2020-10-27] MEDS: ASCORBIC ACID 500 MG TAB PO SCH ×2 (08:44→20:06)
[2020-10-27] MEDS: METOPROLOL SUCC 25MG EXT REL TAB PO SCH (08:45)
[2020-10-27] MEDS: rOPINIRole HCL 0.25 MG TABLET PO PRN ×2 (08:45→20:06)
[2020-10-27] MEDS ORDERED: LACTOBACILLUS ACIDOPHILUS 1 GM PACK PO STA (15:39)
--- NOTE | 2020-10-27 15:39 | Hospitalist Progress Note ---
Date of Service October 27, 2020 Assessment & Plan (1) COVID: Plan: Covid positive and afebrile but without chest x-ray findings of pneumonia. She is oxygenating well on room air. Delirium has resolved after addressing acute urinary retention. Continues on scheduled Tylenol through today. Zosyn was started in setting of elevated LFTs and continued delirium while awaiting RUQ results and repeat UA results. RUQ us was negative for cholecystitis and physical exam also does not support an intra-abdominal process. UA was negative. LFTs elevation may be from her covid infection vs meds, or other etiology. Procalcitonin is negative and with no clear bacterial infection, clinical improvement and persistent BMs, will stop Zosyn now. Of note, cdiff was checked and negative. (2) Generalized weakness: Plan: Likely secondary to Covid infection and chronic comorbidities. PT/OT as tolerated. Patient will likely need SNF as a transition home. Of note she was having recurrent falls and worsening balance per daughter the 2 weeks prior to admission. (3) RLS (restless legs syndrome): Plan: Ropinorole PRN and gabapentin scheduled at night per home regimen. (4) Atrial fibrillation: Plan: Paced rhythm noted this admission. Cont amio, digoxin and warfarin per home regimen. (5) Transaminitis: Plan: Benign abdomen and she is tolerating PO, LFTs trending down. RUQ us was normal. Cont holding statin and repeat in a couple of days. Etiology considerations as above. (6) Acute kidney injury superimposed on chronic kidney disease: Plan: Possibly related to dehydration after poor PO intake and recent lasix use. Improved with IVF. Pt is drinking adequate amount of liquids per nursing staff. (7) Hyponatremia: Plan: Likely related to dehydration, improved with IV fluids. (8) Acute urinary retention: Plan: Uncertain etiology his repeat urinalysis is negative for infection. She is not received any anticholinergic agents. ?cconstipation which has now resolved. ?immobility as a cause. Continue to reassess for other causes. Maintain Moody catheter. (9) DVT prophylaxis: Plan: warfarin DNR/DNI Dispo-uncertain at this time, pending PT/OT evaluations. Karishma Rodriguez [facility] and Anticipated Discharge Date Admission Date: October 22, 2020 Subjective 89-year-old female with multiple medical problems presented with generalized weakness, recurrent falling at home, and found to have COVID-19 infection. She is oriented today per nursing staff, however, when I saw her, she is slow to respond She still generally doesn't feel well and seems mostly upset by having freqeuent BMs c-diff checked and negative She is requesting to have the moody catheter out. Tolerating PO Review of Systems Review of Systems: All systems were reviewed and negative except as indicated in HPI above. Physical Exam Physical Exam: CONSTITUTIONAL: thin, elderly, frail, vitals as above, generally NAD EYES: normal conjunctivae, no scleral icterus ENT: external ear and nose normal NECK: trachea midline RESPIRATORY: clear to auscultation bilaterally, no crackles, rales or wheezes, normal respiratory effort--limited test as patient is not following instructions to take a deep breath. CARDIOVASCULAR: regular rate and rhythm, S1 and 2 heard without murmurs, gallops or rubs, no JVD, no peripheral edema GASTROINTESTINAL: soft, nontender, nondistended, no guarding. : moody in place draining clear yellow urine. MUSCULOSKELETAL: generalized weakness, nonfocal, head is normocephalic and atraumatic SKIN: warm and dry, appears to have erythematous rash as a reaction to prior cardiac leads. NEUROLOGIC: CN 2-12 grossly intact, no gross focal deficits. PSYCHIATRIC: alert and oriented x 3, following instructions and delirium has resolved. Results & Data Results & Data ([facility]) Vital Signs (Past 12 Hours) Vital Signs Temp Pulse Resp BP BP Pulse Ox 10/27/20 14:29 36.4 C L 66 18 154/74 H 97 10/27/20 07:24 36.7 C 61 17 151/67 H 94 Laboratory Results Short CBC 10/27/20 Range/Units 06:22 WBC 8.49 (4.8-10.8) K/uL Hgb 10.9 L (12.0-16.0) g/dL Hct 34.0 L (37-47) % Plt Count 196 (130-400) K/uL BMP 10/27/20 06:22 Sodium 136 Potassium 3.5 Chloride 107 Carbon Dioxide 24 BUN 13 Creatinine 1.22 H D Glucose 88 Calcium 7.8 L Medications Administered Current Inpatient Medications Amiodarone HCl (Amiodarone 200 Mg Tab) 200 mg PO DAILY [facility] Stop: 11/21/20 10:29 Last Admin: 10/27/20 08:44 Dose: 200 mg Documented by: Ascorbic Acid (Ascorbic Acid 500 Mg Tab) 500 mg PO BID [facility] Stop: 11/24/20 20:59 Last Admin: 10/27/20 08:44 Dose: 500 mg Documented by: Betamethasone Dipropion Augmented (Betamethasone Dip Aug (Diprolene) 0.05% Cr 15 Gm Tube) 1 appln EXT BID PRN PRN Reason: Itching Stop: 11/21/20 10:42 Last Admin: 10/23/20 16:21 Dose: 1 appln Documented by: Digoxin (Digoxin 0.125 Mg Tab) 0.125 mg PO MoWeFr@1600 [facility] Stop: 11/22/20 15:59 Last Admin: 10/25/20 16:43 Dose: 0.125 mg Documented by: Escitalopram Oxalate (Escitalopram Oxalate 10 Mg Tab) 5 mg PO DAILY [facility] Stop: 11/22/20 08:59 Last Admin: 10/27/20 08:43 Dose: 5 mg Documented by: Gabapentin (Gabapentin 100 Mg Cap) 100 mg PO HS [facility] Stop: 11/21/20 20:59 Last Admin: 10/26/20 20:00 Dose: 100 mg Documented by: Hydroxyzine HCl (Hydroxyzine Hcl 25 Mg Tab) 25 mg PO Q6 PRN PRN Reason: Itching Stop: 11/21/20 10:16 Lactobacillus Acidophilus (Lactobacillus Acidophilus 1 Gm Pack) 1 gm PO DAILY [facility] Stop: 11/26/20 15:44 Levothyroxine Sodium (Levothyroxine Sodium 50 Mcg Tablet) 50 mcg PO DAILY@0600 [facility] Stop: 11/22/20 05:59 Last Admin: 10/27/20 05:26 Dose: 50 mcg Documented by: Metoprolol Succinate (Metoprolol Succ 25mg Ext Rel Tab) 25 mg PO DAILY [facility] Stop: 11/21/20 10:29 Last Admin: 10/27/20 08:45 Dose: 25 mg Documented by: Nitroglycerin (Nitroglycerin Sl 0.4 Mg/Tab Tab) 0.4 mg SL UD PRN PRN Reason: Chest Pain Stop: 11/21/20 06:05 Nitroglycerin (Nitroglycerin Sl 0.4 Mg/Tab Tab) 0.4 mg SL Q5M PRN PRN Reason: Chest Pain Stop: 11/21/20 10:16 Ondansetron HCl (Ondansetron Inj 2 Mg/Ml 2 Ml Vial) 4 mg IV Q6H PRN PRN Reason: Nausea Stop: 11/21/20 06:05 Last Admin: 10/24/20 14:41 Dose: 4 mg Documented by: Ropinirole HCl (Ropinirole Hcl 0.25 Mg Tablet) 0.5 mg PO BID PRN PRN Reason: Restless Leg(S) Stop: 11/21/20 10:16 Last Admin: 10/27/20 08:45 Dose: 0.5 mg Documented by: Rosuvastatin Calcium (Rosuvastatin Calcium 10 Mg Tab) 10 mg PO HS [facility] Stop: 11/21/20 20:59 Last Admin: 10/25/20 21:10 Dose: 10 mg Documented by: Tramadol HCl (Tramadol Hcl 50 Mg Tablet) 25 mg PO Q8H PRN PRN Reason: pain Stop: 11/21/20 10:16 Last Admin: 10/23/20 20:17 Dose: 25 mg Documented by: Vitamin D (Cholecalciferol 1,000 Units 25 Mcg Tab) [facility] Stop: 11/25/20 08:59 Last Admin: 10/27/20 08:42 Dose: 1,000 units Documented by: Warfarin Sodium (Warfarin Sod 2 Mg Tab) 2 mg PO DAILY@1600 [facility] Stop: 11/24/20 15:59 Last Admin: 10/26/20 17:46 Dose: 2 mg Documented by: Zinc Acetate/Diphenhydramine (Diphenhydramine 2%/Zinc 0.1% Cream 28gm Tube) 1 appln EXT QID PRN PRN Reason: Itching Stop: 11/21/20 10:16 Zinc Sulfate (Zinc Sulfate 220 Mg Capsule) 220 mg PO QAM [facility] Stop: 11/25/20 08:59 Last Admin: 10/27/20 08:44 Dose: 220 mg Documented by:
[2020-10-27] MEDS: WARFARIN SOD 2 MG TAB PO SCH (18:04)
[2020-10-27] MEDS: GABAPENTIN 100 MG CAP PO SCH (20:06)
[2020-10-28] MEDS: LEVOTHYROXINE SODIUM 50 MCG TABLET PO SCH (05:21)
[2020-10-28 08:15] LABS: Prothrombin Time 36.5 Seconds (9.0-12.0)
[2020-10-28 08:23] LABS: BUN Creatinine Ratio 7.7 (10-20); Calcium 8.1 mg/dl (8.5-10.1); Creatinine Clr Calc Pharmacy 25.4 ml/min; Est GFR (African American) 52.7 ml/min; Est GFR (Non-African American) 45.5 ml/min; Phosphorus 2.1 mg/dl (2.5-4.9); Potassium 3.1 mmol/L (3.5-5.1)
[2020-10-28] MEDS: ASCORBIC ACID 500 MG TAB PO SCH ×2 (08:44→20:50)
[2020-10-28] MEDS: ZINC SULFATE 220 MG CAPSULE PO SCH (08:44)
[2020-10-28] MEDS: rOPINIRole HCL 0.25 MG TABLET PO PRN ×2 (08:45→20:50)
[2020-10-28] MEDS: METOPROLOL SUCC 25MG EXT REL TAB PO SCH (08:45)
[2020-10-28] MEDS: CHOLECALCIFEROL 1,000 UNITS 25 MCG TAB PO SCH (08:45)
[2020-10-28] MEDS: AMIODARONE 200 MG TAB PO SCH (08:47)
[2020-10-28] MEDS: ESCITALOPRAM OXALATE 10 MG TAB PO SCH (08:48)
[2020-10-28] MEDS: POTASSIUM CHLORIDE CRTAB 20 MEQ TABCR PO SCH ×2 (09:10→16:41)
[2020-10-28] MEDS: LACTOBACILLUS ACIDOPHILUS 1 GM PACK PO SCH (09:10)
--- NOTE | 2020-10-28 13:01 | Hospitalist Progress Note ---
Date of Service October 28, 2020 Assessment & Plan (1) COVID: Plan: Covid positive and afebrile but without chest x-ray findings of pneumonia. She is oxygenating well on room air. Delirium has resolved after addressing acute urinary retention. Zosyn was started in setting of elevated LFTs and continued delirium while awaiting RUQ results and repeat UA results. RUQ us was negative for cholecystitis and physical exam also does not support an intra-abdominal process. UA was negative. LFTs elevation may be from her covid infection vs meds, or other etiology. Procalcitonin is negative and with no clear bacterial infection, clinical improvement and persistent BMs, so Zosyn was stopped. Of note, cdiff was checked and negative. She is improved overall although still reports feeling terrible. Tylenol PRN. (2) Generalized weakness: Plan: Likely secondary to Covid infection and chronic comorbidities. PT/OT as tolerated. Pt is declining any transition to SNF and wants to go straight home. Of note she was having recurrent falls and worsening balance per daughter the 2 weeks prior to admission. (3) RLS (restless legs syndrome): Plan: Ropinorole PRN and gabapentin scheduled at night per home regimen. (4) Atrial fibrillation: Plan: Paced rhythm noted this admission. Cont amio, digoxin and warfarin per home regimen. (5) Transaminitis: Plan: Benign abdomen and she is tolerating PO, LFTs trending down. RUQ us was normal. Cont holding statin and repeat in a couple of days. Etiology considerations as above. (6) Acute kidney injury superimposed on chronic kidney disease: Plan: Possibly related to dehydration after poor PO intake and recent lasix use. Resolved with IVF. (7) Acute urinary retention: Plan: Uncertain etiology his repeat urinalysis is negative for infection. She is not received any anticholinergic agents. ?cconstipation which has now resolved. ?immobility as a cause. Continue to reassess for other causes. Trial of void today. (8) DVT prophylaxis: Plan: warfarin-held today in setting of elevated INR, repeat INR in am. DNR/DNI Dispo-uncertain at this time, possibly home with home health as she is declining rehab. -24 hr care recommended by physical therapy. Karishma Rodriguez DO [facility] Hospitalist Admission and Anticipated Discharge Date Admission Date: October 22, 2020 Subjective 89-year-old female with multiple medical problems presented with generalized weakness, recurrent falling at home, and found to have COVID-19 infection. She is oriented today and reports feeling terrible but isn't sure why Her excessive BMs have stopped and she is tolerating lunch urinary catheter out today she is tired when ambulating-reports feeling generally weak declines any offer of rehab Review of Systems Review of Systems: All systems were reviewed and negative except as indicated in HPI above. Physical Exam Physical Exam: CONSTITUTIONAL: thin, elderly, frail, vitals as above, generally NAD EYES: normal conjunctivae, no scleral icterus ENT: external ear and nose normal NECK: trachea midline RESPIRATORY: clear to auscultation bilaterally, no crackles, rales or wheezes, normal respiratory effort CARDIOVASCULAR: regular rate and rhythm, S1 and 2 heard without murmurs, gallops or rubs, no JVD, no peripheral edema GASTROINTESTINAL: soft, nontender, nondistended, no guarding. : moody in place draining clear yellow urine. MUSCULOSKELETAL: generalized weakness, nonfocal, head is normocephalic and atraumatic SKIN: warm and dry NEUROLOGIC: CN 2-12 grossly intact, no gross focal deficits. PSYCHIATRIC: alert and oriented x 3 Results & Data Results & Data ([facility]) Vital Signs (Past 12 Hours) Vital Signs Temp Pulse Resp BP Pulse Ox 10/28/20 07:09 37.2 C 60 18 143/71 H 96 Laboratory Results [facility] 10/28/20 06:56 Sodium 133 L Potassium 3.1 L Chloride 102 Carbon Dioxide 25 BUN 8 D Creatinine 1.08 Glucose 84 Calcium 8.1 L Medications Administered Current Inpatient Medications Amiodarone HCl (Amiodarone 200 Mg Tab) 200 mg PO DAILY [facility] Stop: 11/21/20 10:29 Last Admin: 10/28/20 08:47 Dose: 200 mg Documented by: Ascorbic Acid (Ascorbic Acid 500 Mg Tab) 500 mg PO BID [facility] Stop: 11/24/20 20:59 Last Admin: 10/28/20 08:44 Dose: 500 mg Documented by: Betamethasone Dipropion Augmented (Betamethasone Dip Aug (Diprolene) 0.05% Cr 15 Gm Tube) 1 appln EXT BID PRN PRN Reason: Itching Stop: 11/21/20 10:42 Last Admin: 10/23/20 16:21 Dose: 1 appln Documented by: Digoxin (Digoxin 0.125 Mg Tab) 0.125 mg PO MoWeFr@1600 [facility] Stop: 11/22/20 15:59 Last Admin: 10/25/20 16:43 Dose: 0.125 mg Documented by: Escitalopram Oxalate (Escitalopram Oxalate 10 Mg Tab) 5 mg PO DAILY [facility] Stop: 11/22/20 08:59 Last Admin: 10/28/20 08:48 Dose: 5 mg Documented by: Gabapentin (Gabapentin 100 Mg Cap) 100 mg PO HS [facility] Stop: 11/21/20 20:59 Last Admin: 10/27/20 20:06 Dose: 100 mg Documented by: Hydroxyzine HCl (Hydroxyzine Hcl 25 Mg Tab) 25 mg PO Q6 PRN PRN Reason: Itching Stop: 11/21/20 10:16 Lactobacillus Acidophilus (Lactobacillus Acidophilus 1 Gm Pack) 1 gm PO DAILY [facility] Stop: 11/27/20 08:59 Levothyroxine Sodium (Levothyroxine Sodium 50 Mcg Tablet) 50 mcg PO DAILY@0600 [facility] Stop: 11/22/20 05:59 Last Admin: 10/28/20 05:21 Dose: 50 mcg Documented by: Metoprolol Succinate (Metoprolol Succ 25mg Ext Rel Tab) 25 mg PO DAILY [facility] Stop: 11/21/20 10:29 Last Admin: 10/28/20 08:45 Dose: 25 mg Documented by: Nitroglycerin (Nitroglycerin Sl 0.4 Mg/Tab Tab) 0.4 mg SL UD PRN PRN Reason: Chest Pain Stop: 11/21/20 06:05 Nitroglycerin (Nitroglycerin Sl 0.4 Mg/Tab Tab) 0.4 mg SL Q5M PRN PRN Reason: Chest Pain Stop: 11/21/20 10:16 Ondansetron HCl (Ondansetron Inj 2 Mg/Ml 2 Ml Vial) 4 mg IV Q6H PRN PRN Reason: Nausea Stop: 11/21/20 06:05 Last Admin: 10/24/20 14:41 Dose: 4 mg Documented by: Potassium Chloride (Potassium Chloride Crtab 20 Meq Tabcr) 40 meq PO Q6H [facility] Stop: 10/28/20 15:01 Ropinirole HCl (Ropinirole Hcl 0.25 Mg Tablet) 0.5 mg PO BID PRN PRN Reason: Restless Leg(S) Stop: 11/21/20 10:16 Last Admin: 10/28/20 08:45 Dose: 0.5 mg Documented by: Rosuvastatin Calcium (Rosuvastatin Calcium 10 Mg Tab) 10 mg PO HS [facility] Stop: 11/21/20 20:59 Last Admin: 10/25/20 21:10 Dose: 10 mg Documented by: Tramadol HCl (Tramadol Hcl 50 Mg Tablet) 25 mg PO Q8H PRN PRN Reason: pain Stop: 11/21/20 10:16 Last Admin: 10/23/20 20:17 Dose: 25 mg Documented by: Vitamin D (Cholecalciferol 1,000 Units 25 Mcg Tab) 1,000 units PO [facility] Stop: 11/25/20 08:59 Last Admin: 10/28/20 08:45 Dose: 1,000 units Documented by: Warfarin Sodium (Warfarin Sod 2 Mg Tab) 2 mg PO DAILY@1600 [facility] Stop: 11/24/20 15:59 Last Admin: 10/27/20 18:04 Dose: 2 mg Documented by: Zinc Acetate/Diphenhydramine (Diphenhydramine 2%/Zinc 0.1% Cream 28gm Tube) 1 appln EXT QID PRN PRN Reason: Itching Stop: 11/21/20 10:16 Zinc Sulfate (Zinc Sulfate 220 Mg Capsule) 220 mg PO [facility] Stop: 11/25/20 08:59 Last Admin: 10/28/20 08:44 Dose: 220 mg Documented by:
[2020-10-28] MEDS: DIGOXIN 0.125 MG TAB PO SCH (16:41)
[2020-10-28] MEDS: GABAPENTIN 100 MG CAP PO SCH (20:50)
[2020-10-28] MEDS ORDERED: amLODIPine BESYLATE 5 MG TAB PO ONE (23:27)
--- NOTE | 2020-10-28 23:28 | Communication Note ---
Date of Service: October 28, 2020 Made aware by RN of uncontrolled blood pressure. SBP 140-180s since a.m. Cardiac rate 60s Patient asymptomatic as per RN. AP Hypertensive urgency Add Amlodipine to regimen. Will relay to AM provider.
[2020-10-29] MEDS: LEVOTHYROXINE SODIUM 50 MCG TABLET PO SCH (05:20)
[2020-10-29 07:08] LABS: Hematocrit (blood only) 36.2 % (37-47); Hemoglobin 11.9 g/dL (12.0-16.0); Mean Corpuscular Hemoglobin 29.4 pg (25-34); Mean Corpuscular Hgb Conc 32.9 g/dL (32-36); Mean Corpuscular Volume 89.4 fL (80-100); Mean Platelet Volume 11.8 fL (7.4-10.4); Platelet Count 234 K/uL (130-400); RDW Coefficient of Variation 17.3 % (11.5-14.5); RDW Standard Deviation 57.2 fL (36.4-46.3); Red Blood Count 4.05 M/uL (4.2-5.4); White Blood Count 6.88 K/uL (4.8-10.8)
[2020-10-29 07:29] LABS: INR 4.9 (0.9-1.1); Prothrombin Time 43.9 Seconds (9.0-12.0)
[2020-10-29 07:45] LABS: BUN Creatinine Ratio 8.6 (10-20); Calcium 8.3 mg/dl (8.5-10.1); Creatinine Clr Calc Pharmacy 22.1 ml/min; Est GFR (African American) 44.6 ml/min; Est GFR (Non-African American) 38.5 ml/min
[2020-10-29] MEDS: ZINC SULFATE 220 MG CAPSULE PO SCH (09:01)
[2020-10-29] MEDS: METOPROLOL SUCC 25MG EXT REL TAB PO SCH (09:01)
[2020-10-29] MEDS: CHOLECALCIFEROL 1,000 UNITS 25 MCG TAB PO SCH (09:01)
[2020-10-29] MEDS: AMIODARONE 200 MG TAB PO SCH (09:02)
[2020-10-29] MEDS: ASCORBIC ACID 500 MG TAB PO SCH ×2 (09:02→20:40)
[2020-10-29] MEDS: ESCITALOPRAM OXALATE 10 MG TAB PO SCH (09:02)
[2020-10-29] MEDS: LACTOBACILLUS ACIDOPHILUS 1 GM PACK PO SCH (09:02)
[2020-10-29 10:46] LABS: Albumin Level 2.8 gm/dl (3.4-5.0); Bilirubin Direct 0.2 mg/dl (0-0.2); Bilirubin,Total 0.6 mg/dl (0.2-1); Total Protein 6.7 gm/dl (6.4-8.2)
--- NOTE | 2020-10-29 15:51 | Hospitalist Progress Note ---
Date of Service October 29, 2020 Assessment & Plan (1) COVID: Plan: Covid positive and afebrile but without chest x-ray findings of pneumonia. With crackles on exam, will obtain repeat CXR now. If pnemonia present would monitor oxygen saturation more closely--still feeling poorly and some saturation readings in the 93% range in last 24 hours. Tylenol and other supportive measures PRN. (2) Transaminitis: Plan: Benign abdomen with some TTP in RUQ, and she is tolerating PO. LFTs trending down but only slightly. Cholestatic pattern. Notably in the mid 50s on outpatient record review earlier this year (base). RUQ us was normal with patent portal vein. Cont holding statin and amio at this point. LFT elevation likely 2/2 covid. Will obtain hepatitis panel, also. Repeat in am and if not c ontinuing to trend down, will consider GI consultation. (3) Generalized weakness: Plan: Likely secondary to Covid infection and chronic comorbidities. PT/OT as tolerated. Pt is declining any transition to SNF and wants to go home. Of note she is a high fall risk and was having recurrent falls and worsening balance per daughter the 2 weeks prior to admission. (4) RLS (restless legs syndrome): Plan: Ropinorole PRN and gabapentin scheduled at night per home regimen. Of note, these drugs may contribute to falls. (5) Atrial fibrillation: Plan: Paced rhythm noted this admission. Held amio with persistent LFT elevation. Supratherapeutic INR so continuing to hold warfarin. Check dig level. (6) Acute kidney injury superimposed on chronic kidney disease: Plan: Possibly related to dehydration after poor PO intake and recent lasix use. Resolved with IVF. (7) Acute urinary retention: Plan: Uncertain etiology his repeat urinalysis was negative for infection. Nurse noted difficulty placing initial moody--consider urethral stenosis or stricture. She is not received any anticholinergic agents. ?immobility as a cause. As she failed TOV, will ask Urology to see her and follow her up in the outpatient clinic next week. (8) DVT prophylaxis: Plan: warfarin-held today in setting of elevated INR, repeat INR in am. DNR/DNI Dispo-uncertain at this time, possibly home with home health as she is declining rehab. -24 hr care recommended by physical therapy. Karishma Rodriguez DO [facility] Hospitalist Admission and Anticipated Discharge Date Admission Date: October 22, 2020 Subjective 89-year-old female with multiple medical problems presented with generalized weakness, recurrent falling at home, and found to have COVID-19 infection. She is oriented and reports feeling rotten because she cannot urinate. Has been repeatedly required straight cath in last 24 hours after last urinary catheter out today she is tired when ambulating-reports feeling generally weak declines any offer of rehab Review of Systems Review of Systems: At least ten systems were reviewed and negative except as indicated in HPI above. Physical Exam Physical Exam: CONSTITUTIONAL: thin, elderly, frail, vitals as above, generally NAD EYES: normal conjunctivae, no scleral icterus ENT: external ear and nose normal NECK: trachea midline RESPIRATORY: increased crackles intermittently in bases bilaterally, no rales or wheezes, normal respiratory effort CARDIOVASCULAR: regular rate and rhythm, S1 and 2 heard without murmurs, gallops or rubs, no JVD, no peripheral edema GASTROINTESTINAL: soft, some TTP in her RUQ area and suprapubic discomfort, nondistended, no guarding. MUSCULOSKELETAL: generalized weakness, nonfocal, head is normocephalic and atraumatic SKIN: warm and dry NEUROLOGIC: CN 2-12 grossly intact, no gross focal deficits. PSYCHIATRIC: alert and oriented x 3 Results & Data Results & Data ([facility]) Vital Signs (Past 12 Hours) Vital Signs Temp Pulse Resp BP Pulse Ox 10/29/20 15:29 36.5 C 60 18 149/72 H 95 10/29/20 07:01 36.7 C 61 18 150/83 H 94 Laboratory Results Short CBC 10/29/20 Range/Units 06:12 WBC 6.88 (4.8-10.8) K/uL Hgb 11.9 L (12.0-16.0) g/dL Hct 36.2 L (37-47) % Plt Count 234 (130-400) K/uL BMP 10/29/20 06:12 Sodium 133 L Potassium 4.0 D Chloride 103 Carbon Dioxide 24 BUN 11 Creatinine 1.24 H Glucose 90 Calcium 8.3 L Liver Function 10/29/20 Range/Units 06:12 Total Bilirubin 0.6 (0.2-1) mg/dl Direct Bilirubin 0.2 (0-0.2) mg/dl AST 219 H (15-37) U/L ALT 167 H (12-78) U/L Alkaline Phosphatase 175 H (45-117) U/L Albumin 2.8 L (3.4-5.0) gm/dl Medications Administered Current Inpatient Medications Amiodarone HCl (Amiodarone 200 Mg Tab) 200 mg PO DAILY JAKI Stop: 11/21/20 10:29 Last Admin: 10/29/20 09:02 Dose: 200 mg Documented by: Amlodipine Besylate (Amlodipine Besylate 5 Mg Tab) 2.5 mg PO HS JAKI Stop: 11/28/20 20:59 Ascorbic Acid (Ascorbic Acid 500 Mg Tab) 500 mg PO BID JAKI Stop: 11/24/20 20:59 Last Admin: 10/29/20 09:02 Dose: 500 mg Documented by: Betamethasone Dipropion Augmented (Betamethasone Dip Aug (Diprolene) 0.05% Cr 15 Gm Tube) 1 appln EXT BID PRN PRN Reason: Itching Stop: 11/21/20 10:42 Last Admin: 10/23/20 16:21 Dose: 1 appln Documented by: Digoxin (Digoxin 0.125 Mg Tab) 0.125 mg PO MoWeFr@1600 [facility] Stop: 11/22/20 15:59 Last Admin: 10/28/20 16:41 Dose: 0.125 mg Documented by: Escitalopram Oxalate (Escitalopram Oxalate 10 Mg Tab) 5 mg PO DAILY JAKI Stop: 11/22/20 08:59 Last Admin: 10/29/20 09:02 Dose: 5 mg Documented by: Gabapentin (Gabapentin 100 Mg Cap) 100 mg PO HS JAKI Stop: 11/21/20 20:59 Last Admin: 10/28/20 20:50 Dose: 100 mg Documented by: Hydroxyzine HCl (Hydroxyzine Hcl 25 Mg Tab) 25 mg PO Q6 PRN PRN Reason: Itching Stop: 11/21/20 10:16 Lactobacillus Acidophilus (Lactobacillus Acidophilus 1 Gm Pack) 1 gm PO DAILY JAKI Stop: 11/27/20 08:59 Last Admin: 10/29/20 09:02 Dose: 1 gm Documented by: Levothyroxine Sodium (Levothyroxine Sodium 50 Mcg Tablet) 50 mcg PO DAILY@0600 [facility] Stop: 11/22/20 05:59 Last Admin: 10/29/20 05:20 Dose: 50 mcg Documented by: Metoprolol Succinate (Metoprolol Succ 25mg Ext Rel Tab) 25 mg PO DAILY JAKI Stop: 11/21/20 10:29 Last Admin: 10/29/20 09:01 Dose: 25 mg Documented by: Nitroglycerin (Nitroglycerin Sl 0.4 Mg/Tab Tab) 0.4 mg SL UD PRN PRN Reason: Chest Pain Stop: 11/21/20 06:05 Nitroglycerin (Nitroglycerin Sl 0.4 Mg/Tab Tab) 0.4 mg SL Q5M PRN PRN Reason: Chest Pain Stop: 11/21/20 10:16 Ondansetron HCl (Ondansetron Inj 2 Mg/Ml 2 Ml Vial) 4 mg IV Q6H PRN PRN Reason: Nausea Stop: 11/21/20 06:05 Last Admin: 10/24/20 14:41 Dose: 4 mg Documented by: Ropinirole HCl (Ropinirole Hcl 0.25 Mg Tablet) 0.5 mg PO BID PRN PRN Reason: Restless Leg(S) Stop: 11/21/20 10:16 Last Admin: 10/28/20 20:50 Dose: 0.5 mg Documented by: Rosuvastatin Calcium (Rosuvastatin Calcium 10 Mg Tab) 10 mg PO HS [facility] Stop: 11/21/20 20:59 Last Admin: 10/25/20 21:10 Dose: 10 mg Documented by: Tramadol HCl (Tramadol Hcl 50 Mg Tablet) 25 mg PO Q8H PRN PRN Reason: pain Stop: 11/21/20 10:16 Last Admin: 10/23/20 20:17 Dose: 25 mg Documented by: Vitamin D (Cholecalciferol 1,000 Units 25 Mcg Tab) 1,000 units PO QAM JAKI Stop: 11/25/20 08:59 Last Admin: 10/29/20 09:01 Dose: 1,000 units Documented by: Warfarin Sodium (Warfarin Sod 2 Mg Tab) 2 mg PO DAILY@1600 [facility] Stop: 11/24/20 15:59 Last Admin: 10/27/20 18:04 Dose: 2 mg Documented by: Zinc Acetate/Diphenhydramine (Diphenhydramine 2%/Zinc 0.1% Cream 28gm Tube) 1 appln EXT QID PRN PRN Reason: Itching Stop: 11/21/20 10:16 Zinc Sulfate (Zinc Sulfate 220 Mg Capsule) 220 mg PO [facility] Stop: 11/25/20 08:59 Last Admin: 10/29/20 09:01 Dose: 220 mg Documented by:
[2020-10-29 17:19] LABS: Hepatitis B Surf Ag Rflx Conf Neg (Neg)
[2020-10-29 17:48] LABS: Hepatitis C IgG 13Yrs+Old_Rflx Neg (Neg)
--- NOTE | 2020-10-29 20:38 | XRay Report ---
SINGLE VIEW CHEST CLINICAL HISTORY: Crackles on physical examination. Covid. FINDINGS: 2 AP, portable, upright chest radiographs are compared to study dated 10/22/2020. The examin ation is degraded by portable technique and patient rotation. A 2-lead cardiac pacemaker is unchanged in position. The heart is enlarged noting atherosclerotic calcification of the thoracic aorta. The p ulmonary vasculature is noncongested. Chronic interstitial thickening similar to previous. Scarring/a telectasis is noted at the lung bases. No airspace consolidation or large pleural effusion is identif ied. No pneumothorax is seen. The skeletal structures are osteopenic. Degenerative change and scolios is is noted in the spine. The bony thorax is grossly intact. IMPRESSION: 1. Cardiomegaly and cardiac pacemaker with no radiographic evidence of congestive failure. 2. No airspace consolidation or large pleural effusion is seen. ACT 112: Negative or not required by law. Electronically signed by: Maxwell Rausch M.D. 10/29/2020 8:37 PM
[2020-10-29] MEDS: GABAPENTIN 100 MG CAP PO SCH (20:40)
[2020-10-29] MEDS ORDERED: amLODIPine BESYLATE 5 MG TAB PO SCH (21:00)
[2020-10-30] MEDS: traMADol HCL 50 MG TABLET PO PRN (03:49)
[2020-10-30] MEDS: LEVOTHYROXINE SODIUM 50 MCG TABLET PO SCH (05:54)
[2020-10-30 07:33] LABS: INR 4.8 (0.9-1.1); Prothrombin Time 43.3 Seconds (9.0-12.0)
[2020-10-30 07:48] LABS: Albumin Level 2.8 gm/dl (3.4-5.0); C Reactive Protein 2.3 mg/dl (0-0.29); Calcium 8.4 mg/dl (8.5-10.1); Creatinine Clr Calc Pharmacy 21.9 ml/min; Est GFR (African American) 44.2 ml/min; Est GFR (Non-African American) 38.1 ml/min; Potassium 3.5 mmol/L (3.5-5.1)
[2020-10-30 07:51] LABS: Albumin Globulin Ratio 0.7 (0.9-2); Bilirubin,Total 0.6 mg/dl (0.2-1); Globulin 3.8 gm/dl (2.5-4.0); Phosphorus 2.1 mg/dl (2.5-4.9); Total Protein 6.6 gm/dl (6.4-8.2)
[2020-10-30] MEDS: ZINC SULFATE 220 MG CAPSULE PO SCH (09:35)
[2020-10-30] MEDS: LACTOBACILLUS ACIDOPHILUS 1 GM PACK PO SCH (09:35)
[2020-10-30] MEDS: ESCITALOPRAM OXALATE 10 MG TAB PO SCH (09:35)
[2020-10-30] MEDS: METOPROLOL SUCC 25MG EXT REL TAB PO SCH (09:35)
[2020-10-30] MEDS: CHOLECALCIFEROL 1,000 UNITS 25 MCG TAB PO SCH (09:36)
[2020-10-30] MEDS: AMIODARONE 200 MG TAB PO SCH (09:36)
[2020-10-30] MEDS: ASCORBIC ACID 500 MG TAB PO SCH (09:37)
--- NOTE | 2020-10-30 11:10 | Gastrointestinal Consultation ---
Date of Consultation October 30, 2020 Assessment & Plan (1) COVID: 89 year old female w/ extensive comorbids admitted w/ fall, COVID + GI asked to evaluate for elevated LFTs 200 range since admission. Lfts in appear moderately elevated pre COVID in both April and July. ABD US shows stable intra and extrahepatic biliary ductal dilatation since 2018l CT scan. DDX: viral (COVID) congestive hepatopathy vs other Would trend LFTs No acute indication for MRCP but once off isolation for COVID consider MRCP If LFTs remain elevated after recovery from viral illness consider full serology as an OP Continue conservative management as doing Thank you for allowing us to participate in the care of this patient. Please call with any acute changes, questions or concerns. Please see addendum below with additional recommendation from my supervising physician. Normal Tbili, AST/ALT/ALKP Supervising Physician Co-Signing Physician Notes 89 yo fm with a signficant heart history including reported chf, admitted 10/22 s/p fall, found to have covid per pcr + results not on oxygen, (has been vaccinated). Pt with mild runny nose, no supplemental use of oxygen, benign abd exam labs reviewed - rise in ast/alt/alk phos, normal bili, last ast/alt elevated in 05/19 on review She may have a component of congestive hepatopathy and now with covid leading to bump in lft's. No evidence of biliary source, once off isolation, can consider mrcp for further evaluation. Supportive care for now. Further plan of care as per Hannah's plan of care. History of Present Illness Reason for Consultation: elevated lfts Requesting Physician: Michael Attending Physician: Karishma Rodriguez, DO History of Present Illness 89 year old female with history of a fib on anticoagulation with warfarin, tachybrady syndrome s/p pacemaker, diastolic congestive heart failure, HTN, dyslipidemia, CKD-3, hypothyroidism; hyperparathyroidism admitted w/ falls, tested positive for COVID-19. GI asked to evaluate for elevated LFTs. Pt was seen and evaluated in collaboration with my attending. Pt is extremely hard of hearing. She notes nonproducive cough and congestion today. Has some abd fullness but no pain. Tolerating PO. No nausea, vomiting. She cannot recall last bm but chart review indicated today. Denies fever, chills, CP, SOB. Allergies Allergy/AdvReac Type Severity Reaction Status Date / Time ciprofloxacin Allergy Intermediate RASH Verified 08/10/20 19:09 estrogens, conjugated Allergy Intermediate SEVERE Verified 08/10/20 19:09 RASH, PAINFUL FROM VAGINAL CREAM Sulfa (Sulfonamide Allergy Intermediate HIVES, RASH Verified 08/10/20 19:09 Antibiotics) adhesive Allergy Unknown ADHESIVE Verified 08/10/20 19:09 TAPE-SKIN IRRITATION tetanus toxoid, adsorbed Allergy Unknown UNKNOWN Verified 08/10/20 19:09 Home Medications Medication Instructions Recorded Confirmed Type digoxin 125 mcg (0.125 mg) tablet 0.125 mg PO 3XWK 12/25/17 08/10/20 History levothyroxine 50 mcg tablet 50 mcg PO DAILY@0600 12/25/17 08/10/20 History loperamide 2 mg tablet 2 mg PO DIRECTED PRN MDD 16 12/25/17 08/10/20 History MG/24 HOURS nitroglycerin 0.4 mg sublingual 0.4 mg SUBLINGUAL DIRECTED PRN 12/25/17 08/10/20 History tablet ondansetron 4 mg disintegrating 4 mg TRANSLINGUAL Q6 PRN 12/25/17 08/10/20 History tablet rosuvastatin 10 mg tablet 10 mg PO HS 12/25/17 08/10/20 History betamethasone dipropionate 0.05 % 1 applic TOPICAL BID PRN 01/02/18 08/10/20 History topical ointment diphenhydramine-zinc acetate 2 1 applic TOPICAL QID PRN 01/02/18 08/10/20 History %-0.1 % topical cream acetaminophen 325 mg tablet 650 mg PO Q6H PRN 08/21/18 08/10/20 History (Tylenol) amiodarone 200 mg tablet 200 mg PO DAILY 08/21/18 08/10/20 History hydroxyzine HCl 25 mg tablet 25 mg PO Q6 PRN 08/21/18 08/10/20 History cholecalciferol (vitamin D3) 50 50 mcg PO DAILY 05/31/19 08/10/20 History mcg (2,000 unit) tablet (Vitamin D3) escitalopram oxalate 5 mg tablet 5 mg PO DAILY 05/31/19 08/10/20 History metoprolol succinate 25 mg 25 mg PO DAILY 05/31/19 08/10/20 History tablet,extended release 24 hr warfarin 1 mg tablet 1 mg PO AUNG@1600 05/31/19 08/10/20 History ammonium lactate 12 % topical cream 1 applic TOPICAL BID PRN 05/23/20 08/10/20 History levocetirizine 5 mg tablet 5 mg PO DAILY 05/23/20 08/10/20 History warfarin 1 mg tablet 2 mg PO WE@1600 05/23/20 08/10/20 History gabapentin 100 mg capsule 100 mg PO HS #0 cap 05/27/20 08/10/20 Rx tramadol 50 mg tablet 25 mg PO Q8H PRN #10 tab 05/27/20 08/10/20 Rx ropinirole 0.5 mg tablet 0.5 mg PO BID PRN 08/10/20 08/10/20 History Patient History Medical History (Updated 10/26/20 @ 18:38 by Karishma Rodriguez DO) Atrial fibrillation Chronic diastolic CHF (congestive heart failure) CKD (chronic kidney disease), stage III Diverticular disease of colon Dyslipidemia HTN (hypertension) HTN (hypertension) Hypothyroidism Pacemaker RLS (restless legs syndrome) Rosacea SVT (supraventricular tachycardia) Tachy-enid syndrome Surgical History History of carpal tunnel surgery History of cataract surgery History of colon resection History of hysterectomy History of tonsillectomy and adenoidectomy History of total right knee replacement S/P laparoscopic-assisted sigmoidectomy S/P ELISHA (total abdominal hysterectomy) Family History (Updated 05/23/20 @ 09:22 by Liza Castillo PA-C) Other Heart disease Social History Smoking Status: Never smoker Second Hand Exposure: No; Hx Alcohol Use: No Hx Substance Use: No Preferred Language: Nepali Communication Ability: Effective Visual Impairment: No Limitations Rodding Machine 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 Neck: trachea midline, no thyromegaly Respiratory: normal respiratory effort, lungs clear to auscultation Gastrointestinal (Abdomen): normal bowel sounds, soft, nontender, no hepatosplenomegaly Results & Data ([facility]) Vital Signs (Past 12 Hours) Vital Signs Temp Pulse Resp BP BP Pulse Ox 10/30/20 10:45 36.7 C 60 19 94/50 L 95 10/30/20 07:07 36.6 C 63 18 144/76 H 93 10/30/20 02:47 147/67 H 10/30/20 00:00 162/75 H Laboratory Results 10/30/20 10/30/20 10/30/20 Range/Units 06:30 06:30 06:30 PT 43.3 H (9.0-12.0) Seconds INR 4.8 H (0.9-1.1) Sodium (136-145) mmol/L Potassium (3.5-5.1) mmol/L Chloride (98-107) mmol/L Carbon Dioxide (21-32) mmol/L Anion Gap (3-11) BUN (7-18) mg/dl Creatinine (0.6-1.2) mg/dl Est Cr Clr Drug Dosing ml/min Est GFR ( Amer) ml/min Est GFR (Non-Af Amer) ml/min BUN/Creatinine Ratio (10-20) Glucose (70-99) mg/dl Calcium (8.5-10.1) mg/dl Phosphorus (2.5-4.9) mg/dl Magnesium (1.8-2.4) mg/dl Total Bilirubin (0.2-1) mg/dl AST (15-37) U/L ALT (12-78) U/L Alkaline Phosphatase (45-117) U/L Total Creatine Kinase (26-192) U/L C-Reactive Protein (0-0.29) mg/dl Total Protein (6.4-8.2) gm/dl Albumin (3.4-5.0) gm/dl Globulin (2.5-4.0) gm/dl Albumin/Globulin Ratio (0.9-2) Procalcitonin 0.34 (0-0.5) ng/ml Digoxin 0.7 L (0.8-2.0) ng/ml Hepatitis A IgM Ab Hep Bs Antigen (Neg) Hep B Core IgM Ab Hepatitis C Antibody (Neg) 10/30/20 10/30/20 10/29/20 Range/Units 06:30 06:30 16:05 PT (9.0-12.0) Seconds INR (0.9-1.1) Sodium 132 L (136-145) mmol/L Potassium 3.5 (3.5-5.1) mmol/L Chloride 101 (98-107) mmol/L Carbon Dioxide 26 (21-32) mmol/L Anion Gap 6.0 (3-11) BUN 11 (7-18) mg/dl Creatinine 1.25 H (0.6-1.2) mg/dl Est Cr Clr Drug Dosing 21.9 ml/min Est GFR ( Amer) 44.2 ml/min Est GFR (Non-Af Amer) 38.1 ml/min BUN/Creatinine Ratio 9.0 L (10-20) Glucose 97 (70-99) mg/dl Calcium 8.4 L (8.5-10.1) mg/dl Phosphorus 2.1 L (2.5-4.9) mg/dl Magnesium 2.0 (1.8-2.4) mg/dl Total Bilirubin 0.6 (0.2-1) mg/dl AST 230 H (15-37) U/L ALT 173 H (12-78) U/L Alkaline Phosphatase 175 H (45-117) U/L Total Creatine Kinase 54 (26-192) U/L C-Reactive Protein 2.30 H (0-0.29) mg/dl Total Protein 6.6 (6.4-8.2) gm/dl Albumin 2.8 L (3.4-5.0) gm/dl Globulin 3.8 (2.5-4.0) gm/dl Albumin/Globulin Ratio 0.7 L (0.9-2) Procalcitonin (0-0.5) ng/ml Digoxin (0.8-2.0) ng/ml Hepatitis A IgM Ab Pending Hep Bs Antigen Neg (Neg) Hep B Core IgM Ab Pending Hepatitis C Antibody Neg (Neg)
[2020-10-30 15:55] VITALS: BP 152/79; TEMP 98.6; O2SAT 94
--- NOTE | 2020-10-30 17:48 | Discharge Summary ---
Date of Service October 30, 2020 Admission HPI Per Admitting Provider HISTORY OF PRESENT ILLNESS: This is an 89-year-old female with past medical history significant for paroxysmal atrial fibrillation, on anticoagulation with warfarin; history of tachybrady syndrome, status post pacemaker; history of chronic diastolic congestive heart failure; history of hypertension; hyperlipidemia; history of SVT; chronic kidney disease stage III; hypothyroidism; hyperparathyroidism; restless legs syndrome; neurofibroma, multiple sites; Dupuytren contracture, right hand; history of psychogenic nonepileptic seizures; generalized anxiety; frequent falls, who lives at home with her daughter, ambulates with a walker, presents with fall and weakness. The patient says last she fell and hit her forehead and she has a bruise in her forehead. No loss of consciousness. Since today afternoon, she is not able to ambulate, that is why she was brought in here, having weakness. Denies any fever or chills. No shortness of breath, no cough, no chest pain, no nausea, no vomiting, no abdominal pain. Normal bowel and bladder movements. Has headache, no runny nose, no sore throat. When she eats, she swallows okay. The patient seems to be alert and oriented. Had Moderna vaccine, the last dose, second dose was 04/30/2020. Later on routine testing, COVID came back positive. She is saturating fine on room air. Admission Exam Per Admitting Provider PHYSICAL EXAMINATION: GENERAL: The patient is old and frail, not in acute distress. VITAL SIGNS: Temperature 36.9, pulse 60, respiratory rate 18, blood pressure 169/76, oxygen 96% on room air. HEENT: Pupils equal, round and reactive to light. Oral mucosa moist. NECK: No JVD, no neck masses. CARDIOVASCULAR: S1 and S2 heard. Regular rate and rhythm. No murmur, no gallop. RESPIRATORY SYSTEM: Normal AP diameter. No accessory muscle use. No wheezing, no crackles. ABDOMEN: Soft, bowel sounds present. Nontender, no distention. CENTRAL NERVOUS SYSTEM: Cranial nerves II-XII grossly intact, nonfocal. EXTREMITIES: No edema, no erythema. Principal Diagnosis COVID positive Transaminitis Generalized weakness Acute kidney injury-resolved Acute urinary retention-failed trial of void Supratherapeutic INR Discharge Exam CONSTITUTIONAL: thin, elderly, frail, vitals as above, generally NAD EYES: normal conjunctivae, no scleral icterus ENT: external ear and nose normal NECK: trachea midline RESPIRATORY: CTAB, no rales or wheezes, normal respiratory effort CARDIOVASCULAR: regular rate and rhythm, S1 and 2 heard without murmurs, gallops or rubs, no JVD, no peripheral edema GASTROINTESTINAL: soft, nontender, nondistended, no guarding. MUSCULOSKELETAL: generalized weakness, nonfocal, head is normocephalic and atraumatic SKIN: warm and dry NEUROLOGIC: CN 2-12 grossly intact, no gross focal deficits. PSYCHIATRIC: alert and oriented x 3 Discharge Data Allergies Allergy/AdvReac Type Severity Reaction Status Date / Time ciprofloxacin Allergy Intermediate RASH Verified 11/03/20 18:45 estrogens, conjugated Allergy Intermediate SEVERE Verified 11/03/20 18:45 RASH, PAINFUL FROM VAGINAL CREAM Sulfa (Sulfonamide Allergy Intermediate HIVES, RASH Verified 11/03/20 18:45 Antibiotics) adhesive Allergy Unknown ADHESIVE Verified 11/03/20 18:45 TAPE-SKIN IRRITATION tetanus toxoid, adsorbed Allergy Unknown UNKNOWN Verified 11/03/20 18:45 Consultations 10/22/20 03:26 ED Decision to Admit Stat 10/30/20 10:04 Consult Gastroenterology Routine Ordered Studies Laboratory Results WBC 6.88 K/uL (4.8-10.8) 10/29/20 06:12 RBC 4.05 M/uL (4.2-5.4) L 10/29/20 06:12 Hgb 11.9 g/dL (12.0-16.0) L 10/29/20 06:12 Hct 36.2 % (37-47) L 10/29/20 06:12 MCV 89.4 fL (80-100) 10/29/20 06:12 MCH 29.4 pg (25-34) 10/29/20 06:12 MCHC 32.9 g/dL (32-36) 10/29/20 06:12 RDW Std Deviation 57.2 fL (36.4-46.3) H 10/29/20 06:12 RDW Coeff of Mino 17.3 % (11.5-14.5) H 10/29/20 06:12 Plt Count 234 K/uL (130-400) 10/29/20 06:12 MPV 11.8 fL (7.4-10.4) H 10/29/20 06:12 Immature Gran % (Auto) 0.2 % 10/24/20 06:21 Neut % (Auto) 77.1 % 10/24/20 06:21 Lymph % (Auto) 12.3 % 10/24/20 06:21 [place] % (Auto) 9.9 % 10/24/20 06:21 Eos % (Auto) 0.4 % 10/24/20 06:21 Baso % (Auto) 0.1 % 10/24/20 06:21 Neut # (Auto) 6.60 K/uL (1.4-6.5) H 10/24/20 06:21 Lymph # (Auto) 1.05 K/uL (1.2-3.4) L 10/24/20 06:21 [place] # (Auto) 0.85 K/uL (0.11-0.59) H 10/24/20 06:21 Eos # (Auto) 0.03 K/uL (0-0.5) 10/24/20 06:21 Baso # (Auto) 0.01 K/uL (0-0.2) 10/24/20 06:21 Immature Gran # (Auto) 0.02 K/uL (0.00-0.02) 10/24/20 06:21 PT 43.3 Seconds (9.0-12.0) H 10/30/20 06:30 INR 4.8 (0.9-1.1) H 10/30/20 06:30 Sodium 132 mmol/L (136-145) L 10/30/20 06:30 Potassium 3.5 mmol/L (3.5-5.1) 10/30/20 06:30 Chloride 101 mmol/L (98-107) 10/30/20 06:30 Carbon Dioxide 26 mmol/L (21-32) 10/30/20 06:30 Anion Gap 6.0 (3-11) 10/30/20 06:30 BUN 11 mg/dl (7-18) 10/30/20 06:30 Creatinine 1.25 mg/dl (0.6-1.2) H 10/30/20 06:30 Est Cr Clr Drug Dosing 21.9 ml/min 10/30/20 06:30 Est GFR ( Amer) 44.2 ml/min 10/30/20 06:30 Est GFR (Non-Af Amer) 38.1 ml/min 10/30/20 06:30 BUN/Creatinine Ratio 9.0 (10-20) L 10/30/20 06:30 Glucose 97 mg/dl (70-99) 10/30/20 06:30 POC Glucose 195 mg/dl (70-99) H 10/28/20 09:54 Calcium 8.4 mg/dl (8.5-10.1) L 10/30/20 06:30 Phosphorus 2.1 mg/dl (2.5-4.9) L 10/30/20 06:30 Magnesium 2.0 mg/dl (1.8-2.4) 10/30/20 06:30 Total Bilirubin 0.6 mg/dl (0.2-1) 10/30/20 06:30 Direct Bilirubin 0.2 mg/dl (0-0.2) 10/29/20 06:12 AST 230 U/L (15-37) H 10/30/20 06:30 ALT 173 U/L (12-78) H 10/30/20 06:30 Alkaline Phosphatase 175 U/L (45-117) H 10/30/20 06:30 Total Creatine Kinase 54 U/L (26-192) 10/30/20 06:30 Troponin I < 0.015 ng/ml (0-0.045) 10/23/20 05:36 C-Reactive Protein 2.30 mg/dl (0-0.29) H 10/30/20 06:30 NT-Pro-B Natriuret Pep 1698 pg/ml (0-1800) 10/24/20 12:38 Total Protein 6.6 gm/dl (6.4-8.2) 10/30/20 06:30 Albumin 2.8 gm/dl (3.4-5.0) L 10/30/20 06:30 Globulin 3.8 gm/dl (2.5-4.0) 10/30/20 06:30 Albumin/Globulin Ratio 0.7 (0.9-2) L 10/30/20 06:30 Procalcitonin 0.34 ng/ml (0-0.5) 10/30/20 06:30 TSH 6.840 uIu/ml (0.300-4.500) H 10/22/20 01:15 Free T4 1.34 ng/dl (0.8-1.6) 10/22/20 01:15 Urine Color Yellow 10/26/20 12:39 Urine Appearance Clear (Clear) 10/26/20 12:39 Urine pH 6.5 (4.5-7.5) 10/26/20 12:39 Ur Specific [place] 1.011 (1.000-1.030) 10/26/20 12:39 Urine Protein 1+ (Negative) H 10/26/20 12:39 Urine Glucose (UA) Negative (Negative) 10/26/20 12:39 Urine Ketones Negative (Negative) 10/26/20 12:39 Urine Blood Negative (Negative) 10/26/20 12:39 Urine Nitrite Negative (Negative) 10/26/20 12:39 Urine Bilirubin Negative (Negative) 10/26/20 12:39 Urine Urobilinogen Negative (Negative) 10/26/20 12:39 Ur Leukocyte Esterase Negative (Negative) 10/26/20 12:39 Urine WBC (Auto) 1-5 /hpf (0-5) 10/26/20 12:39 Urine RBC (Auto) 0-4 /hpf (0-4) 10/26/20 12:39 U Hyaline Cast (Auto) 1-5 /lpf (0-5) 10/26/20 12:39 U Epithel Cells (Auto) 20-30 /lpf (0-5) H 10/26/20 12:39 Urine Bacteria (Auto) Negative (Negative) 10/26/20 12:39 Stl C. diff Tox B Gene Negative Cdiff Gene (Neg) 10/27/20 07:40 Digoxin 0.7 ng/ml (0.8-2.0) L 10/30/20 06:30 COVID-19 Eval Order Covid19 at [facility] 10/22/20 03:03 SARS-CoV-2 (PCR) POSITIVE (Negative) A* 10/22/20 03:03 Hep Bs Antigen Neg (Neg) 10/29/20 16:05 Hepatitis C Antibody Neg (Neg) 10/29/20 16:[address] 10/23/20 01:[address] DOSE: 537.48 mGy.cm HISTORY: Worsening headache. TECHNIQUE: Multiaxial CT images of the head were performed without the use of intravenous contrast. Automated exposure control was utilized for this study. A dose lowering technique was utilized adhering to the principles of ALARA. Comparison: Head CT 10/22/2020. Findings: The paranasal sinuses and mastoid air cells are clear. The calvarium and skull base are intact. There is no mass, hematoma, midline shift, acute infarct. White matter hypodensity is nonspecific but suggestive of microvascular ischemic change. The ventricles and sulci demonstrate mild age-related involutional changes. Impression: No significant change compared to the prior study. No acute intracranial abnormality. ACT 112: Negative or not required by law. Electronically signed by: Benson Self M.D. 10/23/2020 7:18 AM Liver Ultrasound 10/26/20 10:39 ULTRASOUND RIGHT UPPER QUADRANT ABDOMEN CLINICAL HISTORY: Change in mental status. Abnormal serum laboratory studies. Covid. COMPARISON STUDY: Abdominal CT dated 08/15/2017. TECHNIQUE: Real-time, grayscale, and color flow sonography of the right upper quadrant of the abdomen was performed. Images are reviewed in the transverse and longitudinal planes. FINDINGS: Liver: The liver is normal in size and echotexture. There is mild intrahepatic biliary ductal dilatation. The main portal vein is patent. Gallbladder: The gallbladder is normal in appearance. No gallstones are identified. There is no gallbladder wall thickening or pericholecystic fluid. A sonographic Mix's sign is reportedly absent. The common bile duct measures up to 1.3 cm in diameter. Pancreas: Visualized portions of the pancreatic head and body are normal in appearance. Right kidney: Survey images of the right kidney demonstrate normal size and echotexture. There is no hydronephrosis. Ascites: None. IMPRESSION: 1. No acute sonographic abnormality is seen in the right upper quadrant. 2. There is intra and extrahepatic biliary ductal dilatation, nonspecific and similar in appearance to a [address] scan. 3. No gallstones are identified. ACT 112: Negative or not required by law. Electronically signed by: Maxwell Rausch M.D. 10/26/2020 12:08 PM Chest X-Ray 10/29/20 17:50 SINGLE VIEW CHEST CLINICAL HISTORY: Crackles on physical examination. Covid. FINDINGS: 2 AP, portable, upright chest radiographs are compared to study dated 10/22/2020. The examination is degraded by portable technique and patient rotation. A 2-lead cardiac pacemaker is unchanged in position. The heart is enlarged noting atherosclerotic calcification of the thoracic aorta. The pulmonary vasculature is noncongested. Chronic interstitial thickening similar to previous. Scarring/atelectasis is noted at the lung bases. No airspace consolidation or large pleural effusion is identified. No pneumothorax is seen. The skeletal structures are osteopenic. Degenerative change and scoliosis is noted in the spine. The bony thorax is grossly intact. IMPRESSION: 1. Cardiomegaly and cardiac pacemaker with no radiographic evidence of congestive failure. 2. No airspace consolidation or large pleural effusion is seen. ACT 112: Negative or not required by law. Electronically signed by: Maxwell Rausch M.D. 10/29/2020 8:37 PM Hospital Course (1) COVID: (2) Transaminitis: (3) Generalized weakness: (4) RLS (restless legs syndrome): (5) Atrial fibrillation: (6) Acute kidney injury superimposed on chronic kidney disease: (7) Acute urinary retention: 89 yo F presented from home where she lives with her daughter reporting generalized weakness and recurrent falls. She walks with her walker independently at baseline but had recently required assistance. On arrival she was lethargic. A head CT revealed. No evidence of intracranial hemorrhage in the setting of coumadin use. UA was negative. She was found to be covid positive but did not have pneumonia or hypoxia and, therefore, did not require steroid therapy or remdesivir. She was known to have been fully vaccinated with the Moderna mRNA vaccine. A transaminitis was noted, which was attributed to her covid infection. She was admitted to the medicine service. Given elevated procalcitonin and mild leukocytosis, she was started on ceftriaxone, however, no apparent source of bacterial infection could be identified, and this was stopped after two days. She developed CHASITY and hyponatremia likely related to weakness and poor PO intake/dehydration. She had also received some Lasix to keep her volume status net negative. This was corrected by holding diuretics and giving intravenous fluids. She developed acute urinary retention and a repeat UA was performed and negative for infection. She failed a future trial of void, and per her daughter, Jason, this had occurred in the past. Considering urethral stenosis or stricture? Nursing also reported difficult anatomy during placement of Moody catheter. Urology was peripherally contacted during her stay and will have her follow-up in the [facility] office in 7-10 days for a repeat TOV. She developed delirium and Zosyn was started in the setting of elevated transaminases while awaiting liver ultrasound results. When these were negative and she was clinically more improved, the Zosyn was stopped. LFTs finally started trending down and she became more improved clinically with improving generalized strength. Per therapy assessment, however, a rehab program was recommended. The patient and her daughter declined rehab at this time, and she was sent home with home health instead. At time of discharge, she was oxygenating well on room air, was mentating at her baseline, was denying any significant symptoms and was able to ambulate with minimal assistance. She was sent home in stable condition with close PCP and Urology follow-up in a week. Followup with her anticoagulation clinic was also recommended within the week as her coumadin was held oor supratherapeutic INR. Total Time Total Time Spent Total Time Spent (In Minutes): 60 Discharge Plan Discharge Items Patient Disposition: Home - Home Health Services Reason For Visit: WEAKNESS Discharge Diagnosis: COVID positive Transaminitis Generalized weakness Acute kidney injury-resolved Acute urinary retention-failed trial of void Supratherapeutic INR Condition on Discharge: Good Activity: Resume your previous activity Non-emergency contact: Primary Care Provider Call non-emergency contact if: you have any medication questions, your symptoms worsen and your pain is not controlled Follow-up/Referrals: Roly Vogel MD [Primary Care Provider] - (Date & Time 11/01/2020 10:00 AM Provider Kimo Monge MD Department Family Medicine [facility] PLEASE NOTE THAT THIS IS A TELEHEALTH APPOINTMENT. PLEASE FOLLOW THE INSTRUCTI ONS PROVIDED IN YOUR EMAIL. IF YOU HAVE ANY QUESTIONS REGARDING THIS APPOINTMENT, PLEASE CALL ) Diet: Heart Healthy Diet Texture: Easy to Chew Addtl Attending Provider Instructions: Please take all medications as instructed on discharge list below. We were unsuccessful in having you urinate well and the moody catheter needed to be replaced. As a result you will need to followup with [facility] in 7-10 days for a repeat trial of void in the office. Please contact their office to schedule this. It is recommended that you follow-up with your primary care physician within one week of discharge from the hospital to followup on your urinary issues, symptoms of weakness, adjustment of your coumadin dose as needed, and repeat liver function tests to ensure these are resolving with resolution of your covid infection. Please follow-up with your anticoagulation clinic in 2 days time for a repeat INR check and redosing of your warfarin. Until that time, please avoid taking your daily coumadin. Please continue to hold off taking any rosuvastatin until your liver function tests are rechecked and have improved. It was a pleasure taking care of you! Please call if you have any questions or problems. You can reach a [facility] hospitalist on duty at [facility] 24 hours a day by calling [phone]. Take care of yourself. Karishma Rodriguez, [facility] Hospitalist Pending Studies at Discharge: No Stand-Alone Forms: My [facility] Medications and DC Order Prescriptions: Continued amiodarone 200 mg Tablet 200 mg PO DAILY RF: 0 hydroxyzine HCl 25 mg Tablet 25 mg PO Q6 PRN (Reason: Itching) RF: 0 acetaminophen [Tylenol] 325 mg Tablet 650 mg PO Q6H PRN (Reason: Pain) RF: 0 cholecalciferol (vitamin D3) [Vitamin D3] 50 mcg (2,000 unit) Tablet 50 mcg PO DAILY RF: 0 escitalopram oxalate 5 mg tablet 5 mg PO QDD RF: 0 metoprolol succinate 25 mg tablet extended release 24 hr 25 mg PO DAILY RF: 0 loperamide 2 mg Tablet 2 mg PO DIRECTED MDD 16 MG/24 HOURS PRN (Reason: Diarrhea) RF: 0 levothyroxine 50 mcg Tablet 50 mcg PO DAILYBB RF: 0 nitroglycerin 0.4 mg Tablet, Sublingual 0.4 mg Sublingual DIRECTED PRN (Reason: Chest Pain) RF: 0 digoxin 125 mcg Tablet 0.125 mg PO 3XWK RF: 0 ondansetron 4 mg Tablet,Disintegrating 4 mg translingual Q6 PRN (Reason: Nausea) RF: 0 diphenhydramine-zinc acetate 2-0.1 % cream 1 applic Topical QID PRN (Reason: Itching) RF: 0 betamethasone dipropionate 0.05 % ointment 1 applic Topical BID PRN (Reason: Itching) RF: 0 gabapentin 100 mg capsule 100 mg PO BID RF: 0 levocetirizine 5 mg tablet 5 mg PO DAILY RF: 0 ammonium lactate 12 % cream 1 applic TOPICAL BID PRN (Reason: Dry Skin) RF: 0 tramadol 50 mg Tablet 25 mg PO Q8H PRN (Reason: pain) Qty: 10 RF: 0 ropinirole 0.5 mg tablet 0.5 mg PO QDD RF: 0 Discontinued warfarin 1 mg Tablet 1 mg PO SUMOTUTHFRSA@1600 RF: 0 rosuvastatin 10 mg Tablet 10 mg PO HS RF: 0 warfarin 1 mg tablet 1 mg PO QDD RF: 0 rosuvastatin 10 mg tablet 10 mg PO HS RF: 0 diclofenac sodium [Voltaren Arthritis Pain] 1 % Gel 2 g EXT TID Qty: 50 RF: 0 warfarin 1 mg Tablet 2 mg PO WE@1600 RF: 0 Discharge Orders: Discharge Order (Routine); Ordered 10/30/20 Ordered By: Karishma Rodriguez Admission Data Admit Date/Time: 10/22/20 04:45 Attending Provider: Karishma Rodriguez Admit Provider: René Tan Primary Care Provider: Roly Vogel Other Providers: Roc Gutierres [facility] ; René Tan ; Angela Richey Other Interventions: Discharge Summary Assessment (RN) Last Done: 10/30/20 17:35
[2020-10-30] MEDS: DIGOXIN 0.125 MG TAB PO SCH (18:00)
[2020-10-30 18:01] VITALS: PULSE 62
[2020-10-31 02:50] LABS: Hepatitis A Antibody IgM NON-REACTIVE (NON-REACTIVE); Hepatitis B Core Antibody IgM NON-REACTIVE (NON-REACTIVE)
== END 2020-10-30 18:51 | disposition home health service (06) | DRG 178 ==
LOC: ED 01:04 → 2S 04:45 → SUATTDRO 04:45 → 2S 05:35
DX: Z88.1 Allergy status to other antibiotic agents; Z88.8 Allergy status to other drugs, medicaments and biological substances; R26.89 Other abnormalities of gait and mobility; G25.81 Restless legs syndrome; I48.0 Paroxysmal atrial fibrillation; Y92.239 Unspecified place in hospital as the place of occurrence of the external cause; W19.XXXA Unspecified fall, initial encounter; Z79.890 Hormone replacement therapy; U07.1 COVID-19; Z91.048 Other nonmedicinal substance allergy status; E03.9 Hypothyroidism, unspecified; Z91.81 History of falling; R33.9 Retention of urine, unspecified; Z95.0 Presence of cardiac pacemaker; N17.9 Acute kidney failure, unspecified; F32.9 Major depressive disorder, single episode, unspecified; N35.92 Unspecified urethral stricture, female; R74.01 Elevation of levels of liver transaminase levels; E86.0 Dehydration; N18.4 Chronic kidney disease, stage 4 (severe); Z88.7 Allergy status to serum and vaccine; Z79.899 Other long term (current) drug therapy; Z88.2 Allergy status to sulfonamides; Z79.01 Long term (current) use of anticoagulants; E78.5 Hyperlipidemia, unspecified; I49.5 Sick sinus syndrome; R41.0 Disorientation, unspecified; T50.1X5A Adverse effect of loop [high-ceiling] diuretics, initial encounter; R79.1 Abnormal coagulation profile; I50.32 Chronic diastolic (congestive) heart failure; F41.1 Generalized anxiety disorder; Z66 Do not resuscitate; I13.0 Hypertensive heart and chronic kidney disease with heart failure and stage 1 through stage 4 chronic kidney disease, or unspecified chronic kidney disease; Z86.79 Personal history of other diseases of the circulatory system; E87.1 Hypo-osmolality and hyponatremia

== ENCOUNTER 2020-11-03 17:13 | Inpatient (IN) ==
[2020-11-03 18:03] LABS: Basophils # (auto) 0.01 K/uL (0-0.2); Basophils % (auto) 0.1 %; Eosinophils # (auto) 0.11 K/uL (0-0.5); Eosinophils % (auto) 1.2 %; Hematocrit (blood only) 37.7 % (37-47); Hemoglobin 12.5 g/dL (12.0-16.0); Immature Granulocytes # (auto) 0.05 K/uL (0.00-0.02); Immature Granulocytes % (auto) 0.5 %; Lymphocytes # (auto) 1.23 K/uL (1.2-3.4); Lymphocytes % (auto) 12.9 %; Mean Corpuscular Hemoglobin 29.8 pg (25-34); Mean Corpuscular Hgb Conc 33.2 g/dL (32-36); Mean Corpuscular Volume 89.8 fL (80-100); Mean Platelet Volume 10.9 fL (7.4-10.4); Monocytes # (auto) 0.92 K/uL (0.11-0.59); Monocytes % (auto) 9.7 %; Neutrophils % (auto) 75.6 %; Platelet Count 370 K/uL (130-400); RDW Coefficient of Variation 17.7 % (11.5-14.5); RDW Standard Deviation 57.9 fL (36.4-46.3); White Blood Count 9.52 K/uL (4.8-10.8)
--- NOTE | 2020-11-03 18:07 | XRay Report ---
XR chest 1V portable CLINICAL HISTORY: weakness COMPARISON STUDY: Chest radiograph October 29, 2020. FINDINGS: Dual lead left subclavian pacemaker is in place. Lung volumes are normal. Lungs are clear. There is no pneumothorax or pleural effusion. Cardiac size is stable. Mediastinal contours are normal . There is no evidence for pulmonary edema. IMPRESSION: No acute cardiopulmonary findings. No change in appearance of the chest. ACT 112: Negative or not required by law. Electronically signed by: Erick Singh M.D. 11/03/2020 6:06 PM
[2020-11-03 18:21] LABS: Alanine Aminotransferase 128 U/L (12-78); Albumin Level 2.9 gm/dl (3.4-5.0); Aspartate Aminotransferase 117 U/L (15-37); BUN Creatinine Ratio 9.4 (10-20); Blood Urea Nitrogen 13 mg/dl (7-18); Calcium 8.2 mg/dl (8.5-10.1); Carbon Dioxide 31 mmol/L (21-32); Chloride 102 mmol/L (98-107); Creatinine Clr Calc Pharmacy 20.4 ml/min; Est GFR (African American) 40.6 ml/min; Glucose 85 mg/dl (70-99); Potassium 3.8 mmol/L (3.5-5.1); Sodium 135 mmol/L (136-145)
[2020-11-03 18:25] LABS: INR 1.6 (0.9-1.1); Partial Thromboplastin Ratio 1.3; Partial Thromboplastin Time 33.7 Seconds (21.0-31.0); Prothrombin Time 15.7 Seconds (9.0-12.0)
[2020-11-03 18:31] LABS: Albumin Globulin Ratio 0.7 (0.9-2); Alkaline Phosphatase 183 U/L (45-117); Bilirubin,Total 0.8 mg/dl (0.2-1); Total Protein 6.9 gm/dl (6.4-8.2); Troponin I < 0.015 ng/ml (0-0.045)
[2020-11-03 19:12] LABS: Appearance Urine Clear (Clear); Bacteria Urine Automated Negative (Negative); Bilirubin Urine Negative (Negative); Blood Urine Negative (Negative); Color Urine Yellow; Epithelial Cell Urine Auto 20-30 /lpf (0-5); Glucose Urine UA Negative (Negative); Ketones Urine Negative (Negative); Leukocyte Esterase Urine Trace (Negative); Nitrite Urine Negative (Negative); Protein Urine 1+ (Negative); RBC Urine Automated 0-4 /hpf (0-4); Specific Gravity Urine 1.013 (1.000-1.030); Urobilinogen Urine Negative (Negative); pH Urine 6.5 (4.5-7.5)
--- NOTE | 2020-11-03 19:26 | CT Scan Report ---
CT OF THE HEAD WITHOUT CONTRAST CLINICAL HISTORY: syncope [facility] on coumadin COMPARISON STUDY: Head CT October 23, 2020. TECHNIQUE: Helical axial images of the head were obtained without IV contrast. Automated exposure con trol was utilized for the study. A dose lowering technique was utilized adhering to the principles o f ALARA. FINDINGS: No acute intracranial hemorrhage, midline shift or mass effect is present. The ventricular system is stable. White matter hypodensities are unchanged and favor small vessel disease. The basal cisterns are patent. No extra-axial collections are present. There are no findings to suggest acute d ural sinus thrombosis or acute territorial infarct. There is no calvarial fracture. There is mild eth moid sinus mucosal thickening. IMPRESSION: 1. No acute intracranial findings. No change in appearance of the brain. 2. No calvarial fracture. ACT 112: Negative or not required by law. Electronically signed by: Erick Singh M.D. 11/03/2020 7:25 PM
--- NOTE | 2020-11-03 19:35 | CT Scan Report ---
CT OF THE CERVICAL SPINE WITHOUT CONTRAST CLINICAL HISTORY: fall syncope COMPARISON STUDY: Cervical spine CT August 10, 2020. TECHNIQUE: Helical axial images of the cervical spine were obtained without IV contrast. Sagittal a nd coronal reconstructions were viewed. Automated exposure control was utilized for the study. A do se lowering technique was utilized adhering to the principles of ALARA. FINDINGS: [Curvature of the cervical spine is unchanged Vertebral body heights are maintained. No acu te cervical spine fracture or subluxation is present. There is no prevertebral edema. Facet joints ar e intact. Moderate multilevel disc space narrowing, osteophytosis and facet arthrosis is present. IMPRESSION: No acute cervical spine fracture or subluxation. No significant change since prior CT. ACT 112: Negative or not required by law. Electronically signed by: Erick Singh M.D. 11/03/2020 7:34 PM
[2020-11-03] MEDS ORDERED: OPTIRAY 320 125ml IV ONE (19:55)
[2020-11-03 20:04] LABS: D Dimer 1330 ug/L FEU (0-500)
[2020-11-03] MEDS ORDERED: Heparin IV Adult Wt-Based Standard WITH Bolus Protocol IV STA (20:45)
[2020-11-03] MEDS ORDERED: HEPARIN SOD (PORCINE) 1000 UNIT/ML IV ONE (21:01)
[2020-11-03] MEDS ORDERED: HEPARIN SODIUM/DEXTROSE 25,000 UNITS/500 ML BAG IV SCH (21:15)
--- NOTE | 2020-11-03 23:40 | Emergency Department Note ---
History of Present Illness General Chief complaint: Syncope Stated complaint: SYNCOPE, FALL, CHEST PAIN Time Seen by Provider: 11/03/20 18:01 History of Present Illness Provider complaint: Syncope fall chest pain Onset (ago): day(s) 1 Location: chest Radiation: non-radiation Severity: moderate Pain Consistency: + constant Maximum Pain Intensity: 8 Current Pain Intensity: 8 Quality: + aching Relieved By: + none Exacerbated By: + other (Inspiration) Associated symptoms: + chest pain and + syncope; no cough, no fever/chills, no headaches, no nausea/vomiting or no shortness of breath 89-year-old female on Coumadin presents emergency department for syncopal episode. Patient reports she had a syncopal episode today when she fell forward and hit her chest. Patient now reporting pain in the center of her chest. She reports the pain is worse with inspiration. No difficulty breathing. No hemoptysis. Patient states she is not having a headache. Patient was recently discharged from the hospital after having COVID-19. Home Medications Medication Instructions Recorded Confirmed Type digoxin 125 mcg (0.125 mg) tablet 0.125 mg PO 3XWK 12/25/17 11/03/20 History levothyroxine 50 mcg tablet 50 mcg PO DAILYBB 12/25/17 11/03/20 History loperamide 2 mg tablet 2 mg PO DIRECTED PRN MDD 16 12/25/17 11/03/20 History MG/24 HOURS nitroglycerin 0.4 mg sublingual 0.4 mg SUBLINGUAL DIRECTED PRN 12/25/17 11/03/20 History tablet ondansetron 4 mg disintegrating 4 mg TRANSLINGUAL Q6 PRN 12/25/17 11/03/20 History tablet betamethasone dipropionate 0.05 % 1 applic TOPICAL BID PRN 01/02/18 11/03/20 History topical ointment diphenhydramine-zinc acetate 2 1 applic TOPICAL QID PRN 01/02/18 11/03/20 History %-0.1 % topical cream acetaminophen 325 mg tablet 650 mg PO Q6H PRN 08/21/18 11/03/20 History (Tylenol) amiodarone 200 mg tablet 200 mg PO DAILY 08/21/18 11/03/20 History hydroxyzine HCl 25 mg tablet 25 mg PO Q6 PRN 08/21/18 11/03/20 History cholecalciferol (vitamin D3) 50 50 mcg PO DAILY 05/31/19 11/03/20 History mcg (2,000 unit) tablet (Vitamin D3) escitalopram oxalate 5 mg tablet 5 mg PO QDD 05/31/19 11/03/20 History metoprolol succinate 25 mg 25 mg PO DAILY 05/31/19 11/03/20 History tablet,extended release 24 hr ammonium lactate 12 % topical cream 1 applic TOPICAL BID PRN 05/23/20 11/03/20 History levocetirizine 5 mg tablet 5 mg PO DAILY 05/23/20 11/03/20 History tramadol 50 mg tablet 25 mg PO Q8H PRN #10 tab 05/27/20 11/03/20 Rx ropinirole 0.5 mg tablet 0.5 mg PO QDD 08/10/20 11/03/20 History gabapentin 100 mg capsule 100 mg PO BID 11/03/20 11/03/20 History rosuvastatin 10 mg tablet 10 mg PO HS 11/03/20 11/03/20 History warfarin 1 mg tablet 1 mg PO QDD 11/03/20 11/03/20 History Allergies Allergy/AdvReac Type Severity Reaction Status Date / Time ciprofloxacin Allergy Intermediate RASH Verified 11/03/20 18:45 estrogens, conjugated Allergy Intermediate SEVERE Verified 11/03/20 18:45 RASH, PAINFUL FROM VAGINAL CREAM Sulfa (Sulfonamide Allergy Intermediate HIVES, RASH Verified 11/03/20 18:45 Antibiotics) adhesive Allergy Unknown ADHESIVE Verified 11/03/20 18:45 TAPE-SKIN IRRITATION tetanus toxoid, adsorbed Allergy Unknown UNKNOWN Verified 11/03/20 18:45 Past Med/Surg History Medical History Atrial fibrillation Chronic diastolic CHF (congestive heart failure) CKD (chronic kidney disease), stage III Diverticular disease of colon Dyslipidemia Fall Generalized weakness HTN (hypertension) HTN (hypertension) Hypothyroidism Pacemaker RLS (restless legs syndrome) Rosacea SVT (supraventricular tachycardia) Tachy-enid syndrome Surgical History History of carpal tunnel surgery History of cataract surgery History of colon resection History of hysterectomy History of tonsillectomy and adenoidectomy History of total right knee replacement S/P laparoscopic-assisted sigmoidectomy S/P ELISHA (total abdominal hysterectomy) Family History Other Heart disease Social History Smoking Status: Never smoker Second Hand Exposure: No; Hx Alcohol Use: No Hx Substance Use: No Preferred Language: Kazakh Communication Ability: Effective Visual Impairment: No Limitations 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 Beliefs That Will Affect Care: None marital status: / Current Living Situation: Family Current Living Situation Comment: LIVES WITH DAUGHTER HERNANDO Feels Safe at Home: Yes Assistive Devices: Walker Review of Systems A total of 10 systems reviewed and were otherwise negative Physical Exam Vital Signs Vital Signs - 24 hr 11/03/20 16:58 11/03/20 17:38 11/03/20 17:52 Temperature 36.6 C 36.6 C Temperature Source Oral Oral Pulse Rate - Lying Pulse Rate - Sitting Pulse Rate - Standing Pulse Rate 61 61 Pulse Rate [Apical] 60 Pulse Rate from SpO2 Sensor 62 Pulse Rhythm Regular Pulse Rhythm [Apical] Regular Pulse Strength Normal Pulse Strength [Apical] Normal Respiratory Rate 18 18 16 Respiratory Effort / Characteristics Spontaneous Spontaneous Respiratory Depth Normal Normal Respiratory Pattern Regular Regular Blood Pressure - Lying Blood Pressure - Sitting Blood Pressure- Standing Blood Pressure 147/73 H 147/73 H Blood Pressure [Right Arm] 153/70 H Blood Pressure Mean 97 97 Blood Pressure Mean [Right Arm] 97 Blood Pressure Position Semi-fowlers Blood Pressure Position [Right Arm] Semi-fowlers Pulse Oximetry 96 96 94 Oxygen Delivery Method Room Air Room Air Oxygen Flow Rate 0 Sepsis Recent Fever Within 48 Hours No Sepsis New/Unexplained Change in Mental Status No Sepsis Action Taken by Nursing No Action Required 11/03/20 18:52 11/03/20 19:15 11/03/20 19:16 Temperature Temperature Source Pulse Rate - Lying 60 Pulse Rate - Sitting 65 Pulse Rate - Standing 61 Pulse Rate 61 65 Pulse Rate [Apical] Pulse Rate from SpO2 Sensor 61 65 Pulse Rhythm Pulse Rhythm [Apical] Pulse Strength Pulse Strength [Apical] Respiratory Rate 22 25 H Respiratory Effort / Characteristics Respiratory Depth Respiratory Pattern Blood Pressure - Lying 145/68 H Blood Pressure - Sitting 125/91 Blood Pressure- Standing 80/42 L Blood Pressure 141/78 H 145/68 H Blood Pressure [Right Arm] Blood Pressure Mean 99 93 Blood Pressure Mean [Right Arm] Blood Pressure Position Blood Pressure Position [Right Arm] Pulse Oximetry 96 97 Oxygen Delivery Method Oxygen Flow Rate Sepsis Recent Fever Within 48 Hours Sepsis New/Unexplained Change in Mental Status Sepsis Action Taken by Nursing 11/03/20 19:22 11/03/20 19:30 11/03/20 20:10 Temperature Temperature Source Pulse Rate - Lying Pulse Rate - Sitting Pulse Rate - Standing Pulse Rate 61 67 61 Pulse Rate [Apical] Pulse Rate from SpO2 Sensor 67 58 L Pulse Rhythm Pulse Rhythm [Apical] Pulse Strength Pulse Strength [Apical] Respiratory Rate 17 24 20 Respiratory Effort / Characteristics Respiratory Depth Respiratory Pattern Blood Pressure - Lying Blood Pressure - Sitting Blood Pressure- Standing Blood Pressure 80/42 L 163/76 H Blood Pressure [Right Arm] Blood Pressure Mean 54 105 Blood Pressure Mean [Right Arm] Blood Pressure Position Blood Pressure Position [Right Arm] Pulse Oximetry 96 80 L Oxygen Delivery Method Oxygen Flow Rate Sepsis Recent Fever Within 48 Hours Sepsis New/Unexplained Change in Mental Status Sepsis Action Taken by Nursing 11/03/20 20:20 11/03/20 20:30 11/03/20 21:01 Temperature Temperature Source Pulse Rate - Lying Pulse Rate - Sitting Pulse Rate - Standing Pulse Rate 60 69 60 Pulse Rate [Apical] Pulse Rate from SpO2 Sensor 60 70 60 Pulse Rhythm Pulse Rhythm [Apical] Pulse Strength Pulse Strength [Apical] Respiratory Rate 19 20 17 Respiratory Effort / Characteristics Respiratory Depth Respiratory Pattern Blood Pressure - Lying Blood Pressure - Sitting Blood Pressure- Standing Blood Pressure 182/85 H Blood Pressure [Right Arm] Blood Pressure Mean 117 Blood Pressure Mean [Right Arm] Blood Pressure Position Blood Pressure Position [Right Arm] Pulse Oximetry 93 97 95 Oxygen Delivery Method Oxygen Flow Rate Sepsis Recent Fever Within 48 Hours Sepsis New/Unexplained Change in Mental Status Sepsis Action Taken by Nursing 11/03/20 21:31 11/03/20 22:02 11/03/20 22:32 Temperature Temperature Source Pulse Rate - Lying Pulse Rate - Sitting Pulse Rate - Standing Pulse Rate 61 66 66 Pulse Rate [Apical] Pulse Rate from SpO2 Sensor 61 Pulse Rhythm Pulse Rhythm [Apical] Pulse Strength Pulse Strength [Apical] Respiratory Rate 25 H 23 20 Respiratory Effort / Characteristics Respiratory Depth Respiratory Pattern Blood Pressure - Lying Blood Pressure - Sitting Blood Pressure- Standing Blood Pressure 200/108 H 140/67 Blood Pressure [Right Arm] Blood Pressure Mean 138 91 Blood Pressure Mean [Right Arm] Blood Pressure Position Blood Pressure Position [Right Arm] Pulse Oximetry 97 Oxygen Delivery Method Oxygen Flow Rate Sepsis Recent Fever Within 48 Hours Sepsis New/Unexplained Change in Mental Status Sepsis Action Taken by Nursing 11/03/20 22:40 11/03/20 22:50 11/03/20 23:00 Temperature Temperature Source Pulse Rate - Lying Pulse Rate - Sitting Pulse Rate - Standing Pulse Rate 64 63 66 Pulse Rate [Apical] Pulse Rate from SpO2 Sensor Pulse Rhythm Pulse Rhythm [Apical] Pulse Strength Pulse Strength [Apical] Respiratory Rate 24 19 24 Respiratory Effort / Characteristics Respiratory Depth Respiratory Pattern Blood Pressure - Lying Blood Pressure - Sitting Blood Pressure- Standing Blood Pressure 140/79 Blood Pressure [Right Arm] Blood Pressure Mean 99 Blood Pressure Mean [Right Arm] Blood Pressure Position Blood Pressure Position [Right Arm] Pulse Oximetry Oxygen Delivery Method Oxygen Flow Rate Sepsis Recent Fever Within 48 Hours Sepsis New/Unexplained Change in Mental Status Sepsis Action Taken by Nursing 11/03/20 23:31 Temperature Temperature Source Pulse Rate - Lying Pulse Rate - Sitting Pulse Rate - Standing Pulse Rate 70 Pulse Rate [Apical] Pulse Rate from SpO2 Sensor Pulse Rhythm Pulse Rhythm [Apical] Pulse Strength Pulse Strength [Apical] Respiratory Rate 18 Respiratory Effort / Characteristics Respiratory Depth Respiratory Pattern Blood Pressure - Lying Blood Pressure - Sitting Blood Pressure- Standing Blood Pressure 124/78 Blood Pressure [Right Arm] Blood Pressure Mean 93 Blood Pressure Mean [Right Arm] Blood Pressure Position Blood Pressure Position [Right Arm] Pulse Oximetry Oxygen Delivery Method Oxygen Flow Rate Sepsis Recent Fever Within 48 Hours Sepsis New/Unexplained Change in Mental Status Sepsis Action Taken by Nursing Physical Exam GENERAL: She is oriented to person, place, and time. She appears well-developed and well-nourished. She does not appear distressed. HENT: Exam performed. -Head: Normocephalic and atraumatic. -Right Ear: External ear normal. No mastoid tenderness. -Left Ear: External ear normal. No mastoid tenderness. -Mouth/Throat: The oropharynx is clear and moist. No trismus in the jaw. No dental abscesses or uvula swelling. No oropharyngeal exudate or tonsillar abscesses. EYES: Conjunctivae and EOM are normal. Pupils are equal, round, and reactive to light. Right eye exhibits no discharge. Left eye exhibits no discharge. No scl eral icterus. NECK: Pain on palpation of the C-spine. CV: Normal rate, regular rhythm, normal heart sounds and intact distal pulses. There is no peripheral edema. Palpable radial pulses bue. PULM/CHEST: Effort normal and breath sounds normal. No respiratory distress. No stridor. She has no wheezes. She has no rales. -Chest Wall: Pain on palpation over the sternal area. ABD: The abdomen is soft. Bowel sounds are normal. She has no distension. No mass is present. There is no tenderness. There is no rebound, no guarding, no Mix's sign and no tenderness at McBurney's point. Rovsig negative MUSC/SKEL: Normal range of motion. There is no peripheral edema, tenderness or deformity. LYMPH: No cervical adenopathy. NEURO: She is alert and oriented to person, place, and time. She has normal s trength. No cranial nerve deficit or sensory deficit. Coordination and gait normal. GCS eye subscore is 4. GCS verbal subscore is 5. GCS motor subscore is 6. Cerebellar tests wnl. SKIN: Skin is warm and dry. She is not diaphoretic. PSYCH: She has a normal mood and affect. Behavior is normal. Judgment and thought content normal. Course Course 1800: The patient was evaluated in room A12. A complete history and physical exam was performed Cardiac monitoring: An order was placed for continuous cardiac monitoring. The monitor shows a rate of 60 with paced rhythm 1929: Vital signs stable. Labs show a TSH of 6.8. AST 117 ALT 128 alkaline phosphatase 183. INR is subtherapeutic. Will obtain CTA of the chest given the patient's syncope and recent Covid diagnosis to rule out pulmonary embolism. 2045: Vital signs stable. CT of the chest shows no PE but does show thrombosis of the left atrial appendage extending into the atrial lumen. I discussed the case with on-call cardiology Dr. Ruth. Patient is DNR/DNI. Both he and I feel like the patient would not be a good surgical candidate and given that the patient is subtherapeutic on her INR, we decided to start the patient on heparin with bolus and have the patient admitted to the hospitalist team. Dr. Ruth states he will do a echo on the patient in the morning. Administered Medications Heparin Sodium/Dextrose (Heparin Sodium/Dextrose) 25,000 units in 500 mls @ 16 mls/hr IV .Q24H [facility]; Protocol Stop: 12/03/20 21:14 Last Admin: 11/03/20 21:57 Dose: 800 units/hr, 16 mls/hr Documented by: [id number] Cosigned by: [id number] Discontinued Medications Heparin Sodium/Dextrose (Heparin Iv Adult Wt-Based Standard With Bolus Protocol) 1 ea IV NOW STA; Protocol Stop: 11/03/20 20:46 Last Admin: 11/03/20 21:59 Dose: 1 ea Documented by: [id number] Ioversol (Optiray 320 125ml) 120 ml IV ONCE ONE Stop: 11/03/20 19:56 Last Admin: 11/03/20 19:55 Dose: 120 ml Documented by: [id number] Critical Care Time Critical Care Time: Yes Total Critical Care Time: 89 I have personally spent greater than 89 minutes of critical care time in the direct management of this patient. This includes bedside care, interpretation of diagnostic studies, and testing, discussion with consultants, patient, and family members, and other required patient management activities. This 89 minutes is in excess of all separately billable procedures. Prolonged Care Time Prolonged Care Time: Yes Medical Decision Making Laboratory Data Result diagrams: 11/03/20 17:54 11/03/20 17:54 Lab Results 11/03/20 11/03/20 11/03/20 Range/Units 17:54 17:54 17:54 WBC 9.52 (4.8-10.8) K/uL RBC 4.20 (4.2-5.4) M/uL Hgb 12.5 (12.0-16.0) g/dL Hct 37.7 (37-47) % MCV 89.8 (80-100) fL MCH 29.8 (25-34) pg MCHC 33.2 (32-36) g/dL RDW Std Deviation 57.9 H (36.4-46.3) fL RDW Coeff of Mino 17.7 H (11.5-14.5) % Plt Count 370 (130-400) K/uL MPV 10.9 H (7.4-10.4) fL Immature Gran % (Auto) 0.5 % Neut % (Auto) 75.6 % Lymph % (Auto) 12.9 % [place] % (Auto) 9.7 % Eos % (Auto) 1.2 % Baso % (Auto) 0.1 % Neut # (Auto) 7.20 H (1.4-6.5) K/uL Lymph # (Auto) 1.23 (1.2-3.4) K/uL [place] # (Auto) 0.92 H (0.11-0.59) K/uL Eos # (Auto) 0.11 (0-0.5) K/uL Baso # (Auto) 0.01 (0-0.2) K/uL Immature Gran # (Auto) 0.05 H (0.00-0.02) K/uL PT 15.7 H (9.0-12.0) Seconds INR 1.6 H (0.9-1.1) APTT 33.7 H (21.0-31.0) Seconds PTT Ratio 1.3 D-Dimer (0-500) ug/L FEU Sodium 135 L (136-145) mmol/L Potassium 3.8 (3.5-5.1) mmol/L Chloride 102 (98-107) mmol/L Carbon Dioxide 31 (21-32) mmol/L Anion Gap 2.0 L (3-11) BUN 13 (7-18) mg/dl Creatinine 1.34 H (0.6-1.2) mg/dl Est Cr Clr Drug Dosing 20.4 ml/min Est GFR ( Amer) 40.6 ml/min Est GFR (Non-Af Amer) 35.0 ml/min BUN/Creatinine Ratio 9.4 L (10-20) Glucose 85 (70-99) mg/dl Lactate (0.4-2.0) mmol/L Calcium 8.2 L (8.5-10.1) mg/dl Total Bilirubin 0.8 (0.2-1) mg/dl AST 117 H (15-37) U/L ALT 128 H (12-78) U/L Alkaline Phosphatase 183 H (45-117) U/L Troponin I < 0.015 (0-0.045) ng/ml Total Protein 6.9 (6.4-8.2) gm/dl Albumin 2.9 L (3.4-5.0) gm/dl Globulin 4.0 (2.5-4.0) gm/dl Albumin/Globulin Ratio 0.7 L (0.9-2) TSH 6.880 H (0.300-4.500) uIu/ml Urine Color Urine Appearance (Clear) Urine pH (4.5-7.5) Ur Specific [place] (1.000-1.030) Urine Protein (Negative) Urine Glucose (UA) (Negative) Urine Ketones (Negative) Urine Blood (Negative) Urine Nitrite (Negative) Urine Bilirubin (Negative) Urine Urobilinogen (Negative) Ur Leukocyte Esterase (Negative) Urine WBC (Auto) (0-5) /hpf Urine RBC (Auto) (0-4) /hpf U Hyaline Cast (Auto) (0-5) /lpf U Epithel Cells (Auto) (0-5) /lpf Urine Bacteria (Auto) (Negative) Urine Yeast COVID-19 Eval Order SARS-CoV-2 (PCR) (Negative) 11/03/20 11/03/20 11/03/20 Range/Units 17:54 18:14 19:00 WBC (4.8-10.8) K/uL RBC (4.2-5.4) M/uL Hgb (12.0-16.0) g/dL Hct (37-47) % MCV (80-100) fL MCH (25-34) pg MCHC (32-36) g/dL RDW Std Deviation (36.4-46.3) fL RDW Coeff of Mino (11.5-14.5) % Plt Count (130-400) K/uL MPV (7.4-10.4) fL Immature Gran % (Auto) % Neut % (Auto) % Lymph % (Auto) % [place] % (Auto) % Eos % (Auto) % Baso % (Auto) % Neut # (Auto) (1.4-6.5) K/uL Lymph # (Auto) (1.2-3.4) K/uL [place] # (Auto) (0.11-0.59) K/uL Eos # (Auto) (0-0.5) K/uL Baso # (Auto) (0-0.2) K/uL Immature Gran # (Auto) (0.00-0.02) K/uL PT (9.0-12.0) Seconds INR (0.9-1.1) APTT (21.0-31.0) Seconds PTT Ratio D-Dimer 1330 H* (0-500) ug/L FEU Sodium (136-145) mmol/L Potassium (3.5-5.1) mmol/L Chloride (98-107) mmol/L Carbon Dioxide (21-32) mmol/L Anion Gap (3-11) BUN (7-18) mg/dl Creatinine (0.6-1.2) mg/dl Est Cr Clr Drug Dosing ml/min Est GFR ( Amer) ml/min Est GFR (Non-Af Amer) ml/min BUN/Creatinine Ratio (10-20) Glucose (70-99) mg/dl Lactate 1.1 (0.4-2.0) mmol/L Calcium (8.5-10.1) mg/dl Total Bilirubin (0.2-1) mg/dl AST (15-37) U/L ALT (12-78) U/L Alkaline Phosphatase (45-117) U/L Troponin I (0-0.045) ng/ml Total Protein (6.4-8.2) gm/dl Albumin (3.4-5.0) gm/dl Globulin (2.5-4.0) gm/dl Albumin/Globulin Ratio (0.9-2) TSH (0.300-4.500) uIu/ml Urine Color Yellow Urine Appearance Clear (Clear) Urine pH 6.5 (4.5-7.5) Ur Specific [place] 1.013 (1.000-1.030) Urine Protein 1+ H (Negative) Urine Glucose (UA) Negative (Negative) Urine Ketones Negative (Negative) Urine Blood Negative (Negative) Urine Nitrite Negative (Negative) Urine Bilirubin Negative (Negative) Urine Urobilinogen Negative (Negative) Ur Leukocyte Esterase Trace H (Negative) Urine WBC (Auto) 1-5 (0-5) /hpf Urine RBC (Auto) 0-4 (0-4) /hpf U Hyaline Cast (Auto) 1-5 (0-5) /lpf U Epithel Cells (Auto) 20-30 H (0-5) /lpf Urine Bacteria (Auto) Negative (Negative) Urine Yeast Not Reportable COVID-19 Eval Order SARS-CoV-2 (PCR) (Negative) 11/03/20 11/03/20 Range/Units 21:50 21:50 WBC (4.8-10.8) K/uL RBC (4.2-5.4) M/uL Hgb (12.0-16.0) g/dL Hct (37-47) % MCV (80-100) fL MCH (25-34) pg MCHC (32-36) g/dL RDW Std Deviation (36.4-46.3) fL RDW Coeff of Mino (11.5-14.5) % Plt Count (130-400) K/uL MPV (7.4-10.4) fL Immature Gran % (Auto) % Neut % (Auto) % Lymph % (Auto) % [place] % (Auto) % Eos % (Auto) % Baso % (Auto) % Neut # (Auto) (1.4-6.5) K/uL Lymph # (Auto) (1.2-3.4) K/uL [place] # (Auto) (0.11-0.59) K/uL Eos # (Auto) (0-0.5) K/uL Baso # (Auto) (0-0.2) K/uL Immature Gran # (Auto) (0.00-0.02) K/uL PT (9.0-12.0) Seconds INR (0.9-1.1) APTT (21.0-31.0) Seconds PTT Ratio D-Dimer (0-500) ug/L FEU Sodium (136-145) mmol/L Potassium (3.5-5.1) mmol/L Chloride (98-107) mmol/L Carbon Dioxide (21-32) mmol/L Anion Gap (3-11) BUN (7-18) mg/dl Creatinine (0.6-1.2) mg/dl Est Cr Clr Drug Dosing ml/min Est GFR ( Amer) ml/min Est GFR (Non-Af Amer) ml/min BUN/Creatinine Ratio (10-20) Glucose (70-99) mg/dl Lactate (0.4-2.0) mmol/L Calcium (8.5-10.1) mg/dl Total Bilirubin (0.2-1) mg/dl AST (15-37) U/L ALT (12-78) U/L Alkaline Phosphatase (45-117) U/L Troponin I (0-0.045) ng/ml Total Protein (6.4-8.2) gm/dl Albumin (3.4-5.0) gm/dl Globulin (2.5-4.0) gm/dl Albumin/Globulin Ratio (0.9-2) TSH (0.300-4.500) uIu/ml Urine Color Urine Appearance (Clear) Urine pH (4.5-7.5) Ur Specific [place] (1.000-1.030) Urine Protein (Negative) Urine Glucose (UA) (Negative) Urine Ketones (Negative) Urine Blood (Negative) Urine Nitrite (Negative) Urine Bilirubin (Negative) Urine Urobilinogen (Negative) Ur Leukocyte Esterase (Negative) Urine WBC (Auto) (0-5) /hpf Urine RBC (Auto) (0-4) /hpf U Hyaline Cast (Auto) (0-5) /lpf U Epithel Cells (Auto) (0-5) /lpf Urine Bacteria (Auto) (Negative) Urine Yeast COVID-19 Eval Order Covid19 at [facility] SARS-CoV-2 (PCR) POSITIVE A* (Negative) Imaging Data Radiologist's Impression: Chest X-Ray 11/03/20 17:49 XR chest 1V portable CLINICAL HISTORY: weakness COMPARISON STUDY: Chest radiograph October 29, 2020. FINDINGS: Dual lead left subclavian pacemaker is in place. Lung volumes are normal. Lungs are clear. There is no pneumothorax or pleural effusion. Cardiac size is stable. Mediastinal contours are normal. There is no evidence for pulmonary edema. IMPRESSION: No acute cardiopulmonary findings. No change in appearance of the c hest. ACT 112: Negative or not required by law. Electronically signed by: Ercik Singh M.D. 11/03/2020 6:[address] 11/03/20 18:02 CT OF THE HEAD WITHOUT CONTRAST CLINICAL HISTORY: syncope [facility] on coumadin COMPARISON STUDY: Head CT October 23, 2020. TECHNIQUE: Helical axial images of the head were obtained without IV contrast. Automated exposure control was utilized for the study. A dose lowering technique was utilized adhering to the principles of ALARA. FINDINGS: No acute intracranial hemorrhage, midline shift or mass effect is present. The ventricular system is stable. White matter hypodensities are unchan ged and favor small vessel disease. The basal cisterns are patent. No extra- axial collections are present. There are no findings to suggest acute dural sinus thrombosis or acute territorial infarct. There is no calvarial fracture. There is mild ethmoid sinus mucosal thickening. IMPRESSION: 1. No acute intracranial findings. No change in appearance of the brain. 2. No calvarial fracture. ACT 112: Negative or not required by law. Electronically signed by: Erick Singh M.D. 11/03/2020 7:[address] 11/03/20 18:41 CT OF THE CERVICAL SPINE WITHOUT CONTRAST CLINICAL HISTORY: fall syncope COMPARISON STUDY: Cervical spine CT August 10, 2020. TECHNIQUE: Helical axial images of the cervical spine were obtained without IV contrast. Sagittal and coronal reconstructions were viewed. Automated exposure control was utilized for the study. A dose lowering technique was utilized adhering to the principles of ALARA. FINDINGS: [Curvature of the cervical spine is unchanged Vertebral body heights are maintained. No acute cervical spine fracture or subluxation is present. There is no prevertebral edema. Facet joints are intact. Moderate multilevel disc space narrowing, osteophytosis and facet arthrosis is present. IMPRESSION: No acute cervical spine fracture or subluxation. No significant change since prior CT. ACT 112: Negative or not required by law. Electronically signed by: Erick Singh M.D. 11/03/2020 7:34 PM Preliminary Findings Only See Final Report For Complete Findings CTA OF THE CHEST WITH IV CONTRAST CLINICAL HISTORY: Chest pain. TECHNIQUE: Axial and reformatted sagittal and coronal images of the chest obtained after bolus IV contrast administration. FINDINGS: Normal enhancement of the main pulmonary artery and right and left pulmonary arteries. Normal enhancement of the bilateral peripheral pulmonary arteries. There is no demonstrated pulmonary embolism. Normal thoracic aorta and visualized great vessels. There is no demonstrated aortic dissection. The aorta is calcified. Large filling defect seen in the left atrial appendage extending into the atrial lumen. Normal rest of the ventricular cavities are normal. Normal mediastinum. Normal hilar regions. Normal visualized trachea and bronchi. The lungs are well expanded. Normal pulmonary parenchyma. Normal pleura. Normal chest wall structures. Normal osseous structures. Normal visualized upper abdomen. IMPRESSION: Normal CTA chest examination, without a demonstrated pulmonary embolism or arterial dissection. Thrombosed left atrial appendage extending into the atrial lumen. Radiologist: Rosangela Sosa M.D. Study ready at 20:09 and initial results transmitted at 20:32 Communications: Clear Time Type Notes 11/03/20 20:37 Call Doctor Regarding Other, called Dr. Javier on 11/03 20:37 (- 04:00) ECG Data Additional Comments: Paced rhythm with a rate of 62. VA 272 QRS [address] elevation or ST depression. [facility] Narrative 1800: The patient was evaluated in room A12. A complete history and physical exam was performed Cardiac monitoring: An order was placed for continuous cardiac monitoring. The monitor shows a rate of 60 with paced rhythm 1929: INR is subtherapeutic. Will obtain CTA of the chest given the patient's syncope and recent Covid diagnosis to rule out pulmonary embolism. 2045: Vital signs stable. CT of the chest shows no PE but does show thrombosis of the left atrial appendage extending into the atrial lumen. I discussed the case with on-call cardiology Dr. Ruth. Patient is DNR/DNI. Both he and I feel like the patient would not be a good surgical candidate and given that the patient is subtherapeutic on her INR, we decided to start the patient on heparin with bolus and have the patient admitted to the hospitalist team. Dr. Ruth states he will do a echo on the patient in the morning. Impression & Plan Left atrial thrombus, Syncope Discharge Plan Visit Data Chief Complaint: Syncope Stated Complaint: SYNCOPE, FALL, CHEST PAIN ED Provider: Jovanny Javier Discharge Problem: Left atrial thrombus, Syncope Patient Disposition: Admitted As Inpatient Forms Stand Alone Forms: My [facility] Prescriptions Prescriptions: No Action amiodarone 200 mg Tablet 200 mg PO DAILY RF: 0 hydroxyzine HCl 25 mg Tablet 25 mg PO Q6 PRN (Reason: Itching) RF: 0 acetaminophen [Tylenol] 325 mg Tablet 650 mg PO Q6H PRN (Reason: Pain) RF: 0 cholecalciferol (vitamin D3) [Vitamin D3] 50 mcg (2,000 unit) Tablet 50 mcg PO DAILY RF: 0 escitalopram oxalate 5 mg tablet 5 mg PO QDD RF: 0 metoprolol succinate 25 mg tablet extended release 24 hr 25 mg PO DAILY RF: 0 loperamide 2 mg Tablet 2 mg PO DIRECTED MDD 16 MG/24 HOURS PRN (Reason: Diarrhea) RF: 0 levothyroxine 50 mcg Tablet 50 mcg PO DAILYBB RF: 0 nitroglycerin 0.4 mg Tablet, Sublingual 0.4 mg Sublingual DIRECTED PRN (Reason: Chest Pain) RF: 0 digoxin 125 mcg Tablet 0.125 mg PO 3XWK RF: 0 ondansetron 4 mg Tablet,Disintegrating 4 mg translingual Q6 PRN (Reason: Nausea) RF: 0 diphenhydramine-zinc acetate 2-0.1 % cream 1 applic Topical QID PRN (Reason: Itching) RF: 0 betamethasone dipropionate 0.05 % ointment 1 applic Topical BID PRN (Reason: Itching) RF: 0 warfarin 1 mg tablet 1 mg PO QDD RF: 0 rosuvastatin 10 mg tablet 10 mg PO HS RF: 0 gabapentin 100 mg capsule 100 mg PO BID RF: 0 levocetirizine 5 mg tablet 5 mg PO DAILY RF: 0 ammonium lactate 12 % cream 1 applic TOPICAL BID PRN (Reason: Dry Skin) RF: 0 tramadol 50 mg Tablet 25 mg PO Q8H PRN (Reason: pain) Qty: 10 RF: 0 ropinirole 0.5 mg tablet 0.5 mg PO QDD RF: 0 Referrals Referrals: Roly Vogel MD [Primary Care Provider] -
[2020-11-04] MEDS ORDERED: ACETAMINOPHEN 325 MG TAB PO PRN ×2 (00:27)
[2020-11-04] MEDS ORDERED: hydrOXYzine HCl 25 MG TAB PO PRN (00:27)
[2020-11-04] MEDS ORDERED: POLYETHYLENE (MIRALAX) 17 GM PACK PO PRN (00:27)
[2020-11-04] MEDS ORDERED: ONDANSETRON INJ 2 MG/ML 2 ML VIAL IV PRN (00:27)
[2020-11-04] MEDS ORDERED: NITROGLYCERIN SL 0.4 MG/TAB TAB SL PRN ×2 (00:27)
[2020-11-04] MEDS ORDERED: SODIUM CHLORIDE 0.9% 1000ML 1,000 ML IV SCH (00:27)
[2020-11-04] MEDS ORDERED: AMMONIUM LACTATE 12% LOTION 225 GM BTL EXT PRN (00:37)
[2020-11-04] MEDS ORDERED: LOPERAMIDE HCL 2 MG CAP PO PRN (00:43)
[2020-11-04] MEDS ORDERED: ONDANSETRON 4 MG OD TAB PO PRN (00:45)
[2020-11-04] MEDS ORDERED: BETAMETHASONE DIP AUG 0.05% OINT 15 GM TUBE EXT PRN (00:48)
[2020-11-04] MEDS: traMADol HCL 50 MG TABLET PO PRN ×2 (00:56→19:48)
[2020-11-04] MEDS: GABAPENTIN 100 MG CAP PO SCH ×3 (01:50→19:44)
--- NOTE | 2020-11-04 02:03 | History and Physical Report ---
DATE OF ADMISSION: 11/03/2020. CHIEF COMPLAINT: Syncope. HISTORY OF PRESENT ILLNESS: This is an 89-year-old female with past medical history significant for paroxysmal atrial fibrillation, on anticoagulation with warfarin, history of tachybrady syndrome, status post pacemaker, history of chronic diastolic congestive heart failure, history of hypertension, hyperlipidemia, history of SVT, history of chronic kidney disease stage III, hypothyroidism, hyperparathyroidism, restless legs syndrome, history of neurofibroma multiple sites, Dupuytren contracture right hand, history of psychogenic nonepileptic seizures, generalized anxiety, frequent falls, who lives at home with her daughter, ambulates with a walker, presents after a fall. The patient was recently in the hospital, admitted on 10/22/2020, at that time with syncope and fall. At that time, COVID came back positive. She had her Moderna vaccine, second dose was on 04/30/2020 and she did not require oxygen, did not require any treatment and during hospitalization, she also had acute urinary retention. She was placed on Moody catheter and supposed to follow. As per nursing staff home health supposed to take the catheter out and supposed to follow up with Urology. Still has moody. During last hospitalization she has also persistent LFT elevation. For that reason, amiodarone was held, but restarted at time of discharge. Because of persistent elevation of INR her Coumadin was also held at discharge and . Her LFT elevation thought to be secondary to COVID and to follow outpatient. GI recommended if persistent LFT and not resolved, plan for MRCP. She was adviced to go to rehab, but the patient declined rehab and she went home to live with her daughter. Today she was at the sink, she fell on the sink and was brought to the hospital complaining of chest pain. CTA of the chest was done, there is no PE, but showed a thrombosed left atrial appendage. ER doctor called the on-call cardiology, Dr. Ruth and recommended to start on IV heparin as the INR was subtherapeutic and will be evaluated by echo in a.m. The patient is resting comfortably,but very hard of hearing. Denies any headache, denies any blurred visions, no runny nose, no sore throat. No cough. She says her appetite is good and she swallows okay. She is currently hungry and wants to eat. Denies any shortness of breath. Denies any fevers. Denies any nausea, no abdominal pain. She has normal bowel and bladder movements. ALLERGIES: CIPROFLOXACIN, ESTROGENS, SULFA ANTIBIOTICS, receives tetanus toxoid. PAST MEDICAL HISTORY: As mentioned above. PAST SURGICAL HISTORY: Right total knee arthroplasty, carpal tunnel surgery on the left side, colonoscopy, laparoscopic colectomy, partial anastomosis for diverticulosis, bilateral cataract surgery, tonsillectomy, adenoidectomy, total abdominal hysterectomy with removal of tubes, pacemaker insertion. MEDICATIONS: The patient is on Tylenol 650 mg p.o. q. 6 hours p.r.n. amiodarone 200 mg p.o. daily, ammonium lactate topical b.i.d. p.r.n., betamethasone topical b.i.d. p.r.n., vitamin D 50 mcg p.o. daily, digoxin 0.125 mg p.o. 3 times a week, Lexapro 5 mg p.o. daily, gabapentin 100 mg p.o. b.i.d., hydroxyzine 25 mg p.o. 6 hours p.r.n., levocetirizine 5 mg p.o. daily, levothyroxine 50 mcg p.o. daily, loperamide p.r.n., metoprolol succinate 25 mg p.o. daily, nitroglycerin 0.4 mg sublingual p.r.n., Zofran 4 mg q. 6 hours p.r.n., ropinirole 0.5 mg p.o. daily, rosuvastatin 10 mg p.o. at bedtime, tramadol 25 mg p.o. q. 8 hours p.r.n., warfarin 1 mg p.o. every day. FAMILY HISTORY: No family history on file. SOCIAL HISTORY: The patient is . No smoking, alcohol rarely, no drug use. REVIEW OF SYSTEMS: As per HPI. Rest of the review of systems is negative. PHYSICAL EXAMINATION: GENERAL: The patient is old and frail, not in acute distress. VITAL SIGNS: Temperature 36.6, pulse 61, respiratory rate 22, blood pressure 141/78, oxygen 96%. HEENT: Pupils equal, round and reactive to light. Oral mucosa moist. NECK: No JVD. No neck masses. CARDIOVASCULAR: S1 and S2 heard, regular rate and rhythm. No murmur, no gallop. Has point tenderness in the midsternal region. RESPIRATORY SYSTEM: Normal AP diameter. No accessory muscle use. No wheezing, no crackles. ABDOMEN: Soft, bowel sounds present, nontender, no distention. CENTRAL NERVOUS SYSTEM: Cranial nerves II-XII grossly intact, nonfocal. EXTREMITIES: No edema, no erythema. LABORATORY DATA: WBC 10.5, hemoglobin 12.5, hematocrit 37.7, platelets 370. PT 15.7, INR 1.6. D-dimer 1330. Sodium 135, potassium 3.8, chloride 102, bicarbonate 31, BUN 13, creatinine 1.34, serum glucose 85. Lactate 1.1, calcium 8.2, total bilirubin 0.8, AST 117, ALT 128, alkaline phosphatase 183. Troponin I less than 0.015, pH is 6.8. Urinalysis: Trace leukocyte esterase. CT of the chest, preliminary report no PE, thrombosed left atrial appendage. Thrombosed left atrial appendage extending into the atrial lumen. Cervical spine CT: No acute findings. CT of the head, no acute findings. Chest x-ray, no acute findings. EKG: Atrial paced rhythm with prolonged AV conduction with a rate of 62, no significant change was found. ASSESSMENT AND PLAN: This is an 89-year-old female who was recently in the hospital for syncope and was found to be COVID, did not require treatment, discharged back to home with her daughter, comes back with a fall and complained of chest pain. 1. Possible syncope, chest pain. The patient fell on the sink on her chest, and has tenderness to palpation, likely musculoskeletal pain. Initial troponin was negative. D-dimer was elevated, but CTA of the chest is negative for PE, but showing thrombosed left atrial appendage extending into the atrial lumen. ER called cardiology on-call, Dr. Ruth and recommended to start IV heparin followed with echo in a.m. We will admit to tele floor, check orthostatics, gentle fluids and we will keep n.p.o. after midnight. Consult cardiology in a.m. Continue with IV heparin and Coumadin. Follow PT/INR. Echo as per Cardiology in a.m. 2. COVID positive. The patient is vaccinated with Moderna 2 doses, second dose was 04/30/2020 but last admission the screening test for COVID came back positive. Today CT of the chest, no infiltrates seen. Follow repeat COVID testing. Continue COVID precautions. 3. Elevated LFTs. AST, ALT are trending down. Alkaline phosphatase still the same, possibly secondary to recent COVID infection. Needs followup. 4. Urinary retention, continue Moody catheter. Needs follow up with urology as outpatient. 5. History of atrial fibrillation, rate controlled with digoxin and metoprolol succinate, on Coumadin, INR subtherapeutic, currently on IV heparin. Follow the PT/INR. 6. Depression: Continue Lexapro. 7. Hypothyroidism. Continue Synthroid. 8. Hypertension, on Toprol-XL. Monitor the blood pressure. 9. Restless legs syndrome, on Requip. 10. History of SVT on Toprol-XL. 11. Chronic diastolic CHF, on digoxin, Toprol-XL. Not on any diuretics. Monitor for any volume overload. 12. Chronic kidney disease stage , creatinine 1.3, seems to be baseline. We will follow the repeat labs. 13. Deep venous thrombosis prophylaxis, currently on Coumadin and IV heparin. Follow PT/INR. DISPOSITION: Closely monitor in the med tele floor. PT, OT prior to discharge. Social service to help with discharge planning. Level 1 full code. Job ID: [id number] [facility]
[2020-11-04 04:25] LABS: Basophils # (auto) 0.02 K/uL (0-0.2); Basophils % (auto) 0.2 %; Eosinophils # (auto) 0.13 K/uL (0-0.5); Eosinophils % (auto) 1.2 %; Hematocrit (blood only) 34.9 % (37-47); Hemoglobin 11.2 g/dL (12.0-16.0); Immature Granulocytes # (auto) 0.06 K/uL (0.00-0.02); Immature Granulocytes % (auto) 0.5 %; Lymphocytes # (auto) 1.19 K/uL (1.2-3.4); Lymphocytes % (auto) 10.8 %; Mean Corpuscular Hemoglobin 28.5 pg (25-34); Mean Corpuscular Hgb Conc 32.1 g/dL (32-36); Mean Corpuscular Volume 88.8 fL (80-100); Mean Platelet Volume 11.5 fL (7.4-10.4); Monocytes # (auto) 1.02 K/uL (0.11-0.59); Monocytes % (auto) 9.2 %; Neutrophils # (auto) 8.61 K/uL (1.4-6.5); Neutrophils % (auto) 78.1 %; Platelet Count 333 K/uL (130-400); RDW Coefficient of Variation 17.6 % (11.5-14.5); RDW Standard Deviation 57.5 fL (36.4-46.3); Red Blood Count 3.93 M/uL (4.2-5.4); White Blood Count 11.03 K/uL (4.8-10.8)
[2020-11-04 04:47] LABS: INR 1.8 (0.9-1.1); Partial Thromboplastin Ratio > 5.3; Prothrombin Time 17.2 Seconds (9.0-12.0)
[2020-11-04 04:50] LABS: BUN Creatinine Ratio 9.3 (10-20); Blood Urea Nitrogen 12 mg/dl (7-18); Calcium 7.7 mg/dl (8.5-10.1); Carbon Dioxide 26 mmol/L (21-32); Chloride 106 mmol/L (98-107); Creatinine Clr Calc Pharmacy 21.1 ml/min; Est GFR (African American) 42.1 ml/min; Est GFR (Non-African American) 36.3 ml/min; Glucose 107 mg/dl (70-99); Magnesium 2.1 mg/dl (1.8-2.4); Potassium 3.4 mmol/L (3.5-5.1); Sodium 136 mmol/L (136-145)
[2020-11-04 04:54] LABS: Troponin I < 0.015 ng/ml (0-0.045)
[2020-11-04 04:55] LABS: Partial Thromboplastin Time > 139.0 Seconds (21.0-31.0)
[2020-11-04] MEDS: POTASSIUM CHLORIDE / WTR 10 MEQ/100 ML PLCT IV SCH ×2 (05:05→06:05)
[2020-11-04] MEDS: LEVOTHYROXINE SODIUM 50 MCG TABLET PO SCH (05:38)
--- NOTE | 2020-11-04 06:35 | CT Scan Report ---
CT ANGIOGRAM OF THE CHEST CLINICAL HISTORY: Syncope. Fall. COMPARISON STUDY: Chest x-ray dated 11/03/2020. TECHNIQUE: Following the IV administration of 120 cc of Optiray 320, CT angiogram of the chest was pe rformed from the upper abdomen to the thoracic inlet utilizing the pulmonary embolus protocol. Images are reviewed in the axial, sagittal, and coronal planes. 3-D MIPS images are created and assessed. I V contrast was administered without complication. A dose lowering technique was utilized adhering to the principles of ALARA. The examination is degraded by motion artifact, as well as by streak artifa ct from the arms which could not be elevated above the chest. CT DOSE: 218.83 mGy.cm FINDINGS: Thyroid: Imaged portions of the thyroid gland are normal in size and attenuation. Thoracic aorta: There is mild atherosclerotic calcification of the thoracic aorta, which is normal in caliber and demonstrates standard 3-vessel arch anatomy. No dissection is seen. Pulmonary vasculature: The Main pulmonary arteries are mildly dilated suggesting pulmonary artery hyp ertension. There are no filling defects identified in main, lobar, or segmental pulmonary branches to suggest pulmonary embolus. Heart: A cardiac pacemaker is present in the left chest wall. The heart is enlarged and without peric ardial effusion. There are coronary artery calcifications. Lungs and pleural spaces: Evaluation of the lung parenchyma is degraded by motion artifact. The trach ea and central airways are clear. There is bibasilar scarring/atelectasis. There is a 2.1 cm groundgl ass opacity in the subpleural left lower lobe seen on image #123. There is no lobar consolidation or pleural effusion. Mild diffuse peribronchial thickening is observed. Mediastinum: There is no mediastinal lymphadenopathy. Isela: Clear. Axillae: There is no axillary lymphadenopathy. Upper abdomen: Partially visualized upper abdominal viscera is within normal limits. Skeletal structures: The skeletal structures are osteopenic. No lytic or blastic bony lesions are see n. Degenerative change and hyperkyphosis is noted in the thoracic spine. IMPRESSION: 1. Streak and motion compromised examination. 2. There is no evidence of pulmonary embolus in the main, lobar, or segmental pulmonary arteries. 3. There is no lobar consolidation or pleural effusion. 4. A 2.1 cm groundglass opacities seen in the left lower lobe. This is pathologically indeterminant, and could be on an infectious/inflammatory basis or represent atelectasis. A follow-up chest CT in 3- 4 months time is recommended to resolution as a low-grade neoplasm could also have this appearance. 5. Mild diffuse peribronchial thickening suggests bronchitis/reactive airway disease. Clinical correl ation will be required 6. An apparent filling defect in the left atrial appendage likely represents mixing artifact. Thrombu s is considered less likely. Consider echocardiography for further assessment ACT 112: Negative or not required by law. Electronically signed by: Maxwell Rausch M.D. 11/04/2020 6:33 AM
[2020-11-04] MEDS: CETIRIZINE HCL 10 MG TABLET PO SCH (07:21)
[2020-11-04] MEDS: CHOLECALCIFEROL 1,000 UNITS 25 MCG TAB PO SCH (07:21)
[2020-11-04] MEDS: DIGOXIN 0.125 MG TAB PO SCH (07:22)
[2020-11-04] MEDS: METOPROLOL SUCC 25MG EXT REL TAB PO SCH (07:22)
[2020-11-04] MEDS: AMIODARONE 200 MG TAB PO SCH (07:22)
[2020-11-04 07:31] LABS: Partial Thromboplastin Ratio 2.2
[2020-11-04 07:33] LABS: Partial Thromboplastin Time 57.2 Seconds (21.0-31.0)
--- NOTE | 2020-11-04 08:52 | Electrocardiogram Report ---
Test Reason : Blood Pressure : / mmHG Vent. Rate : 062 BPM Atrial Rate : 064 BPM P-R Int : 272 ms QRS Dur : 096 ms QT Int : 456 ms P-R-T Axes : 000 -49 084 degrees QTc Int : 462 ms Atrial-paced rhythm with prolonged AV conduction Left anterior fascicular block Nonspecific ST abnormality Anterolateral leads Abnormal ECG When compared with ECG of 22-OCT-2020 02:16, ST depression in Anterolateral leads more pronounced Confirmed by Kaleb Moore ([id number]) on 11/04/2020 8:52:16 AM Referred By: REFERRED SELF Confirmed By:Kaleb Moore
--- NOTE | 2020-11-04 10:14 | Electrocardiogram Report ---
Test Reason : Blood Pressure : / mmHG Vent. Rate : 061 BPM Atrial Rate : 060 BPM P-R Int : 278 ms QRS Dur : 096 ms QT Int : 446 ms P-R-T Axes : 000 -47 042 degrees QTc Int : 448 ms Poor data quality, interpretation may be adversely affected Atrial-paced rhythm with prolonged AV conduction Left anterior fascicular block Nonspecific ST abnormality Anterolateral leads Abnormal ECG When compared with ECG of 03-NOV-2020 17:41, No significant change was found Confirmed by Kaleb Moore ([id number]) on 11/04/2020 10:13:42 AM Referred By: REFERRED SELF Confirmed By:Kaleb Moore
[2020-11-04] MEDS ORDERED: MoRPHine SULFATE 2 MG/ML CARP IV PRN (10:22)
--- NOTE | 2020-11-04 11:57 | Hospitalist Progress Note ---
Date of Service November 04, 2020 Assessment & Plan (1) Syncope: Plan: History of recurrent syncope/falls No significant causes identified in the past Admitted with another fall at home-likely mechanical fall with injury to anterior chest wall without any fracture of bones No arrhythmias on monitor and has paced rhythm at 61 bpm on examination Denies any dizziness, palpitation or shortness of breath (2) Chest pain: Plan: Has been complaining of chest pain Anterior chest wall likely secondary to fall No evidence of fracture of the ribs and no local bruising Minimally tender on palpation Will give morphine on top of her usual pain medication while in the hospital (3) Left atrial thrombus: Plan: Incidental finding of possible left atrial thrombus on CTA of the chest Has been started on intravenous heparin Echo of the heart ruled out any NORA thrombus Appreciate cardiology input and recommendation We will discontinue intravenous heparin (4) Atrial fibrillation: Plan: Has paced rhythm Has been on Coumadin and INR is 1.8 today (5) Chronic diastolic CHF (congestive heart failure): Plan: No evidence of fluid overload (6) CKD (chronic kidney disease): Plan: Creatinine remains stable at 1.30 (7) Hypothyroidism: Plan: Continue supplement Has anxiety/depression Continue current medication Admission and Anticipated Discharge Date Admission Date: November 03, 2020 Subjective 11/04/2020 The patient was seen and examined in the telemetry unit and in Covid room She was admitted with a fall at home/syncope with history of recurrent falls and severe anxiety She has been complaining of anterior chest pain without any radiation or any associated symptoms of shortness of breath, palpitation, nausea and or vomiting Review of Systems Review of Systems: All systems reviewed and are unremarkable except as noted below Constitutional: + body aches Musculoskeletal: Anterior chest pain without any radiation and no shortness of breath Neurologic: Alert and awake Psychiatric: Very anxious Physical Exam Physical Exam: Lying in bed with distress due to anterior chest wall pain and restlessness Constitutional: + acute distress (Anxiety and pain), + ill appearing and + thin Eyes: PERRL, conjunctivae normal, anicteric sclerae ENMT: external ear and nose normal, oropharynx normal Neck: trachea midline, no thyromegaly Respiratory: no respiratory distress and no cough Auscultation: lungs clear to auscultation bilaterally Tenderness over mid sternal area. Has benign looking skin lesions anterior chest and also anterior left shoulder Cardiovascular: Rate/Rhythm: regular rate and regular rhythm; not tachycardic Heart Sounds: normal S1 and normal S2; no murmur Extremities: + edema (Trace edema bilaterally) Gastrointestinal (Abdomen): Inspection/Auscultation: normal bowel sounds; ab domen not distended Percussion/Palpation: abdomen soft; abdomen nontender Musculoskeletal: No acute arthritis in any joint Neurologic: Alert and awake. Generally very anxious. Has been moving all limbs equally Psychiatric: Mood: + anxious mood Results & Data Results & Data ([facility]) Vital Signs (Past 12 Hours) Vital Signs Temp Pulse Pulse Resp BP BP Pulse Ox 11/04/20 11:17 36.3 C L 63 22 139/63 91 11/04/20 09:35 91 H 11/04/20 07:22 65 11/04/20 07:16 65 21 162/88 H 98 11/04/20 03:27 36.6 C 61 18 143/67 H 94 11/04/20 01:19 36.9 C 61 16 157/70 H 97 11/04/20 01:08 61 140/71 11/04/20 00:39 117/85 11/04/20 00:29 36.9 C 61 16 157/70 H 97 11/04/20 00:25 62 11/03/20 23:59 36.8 C 62 20 145/75 H 98 Laboratory Results Short CBC 11/03/20 11/04/20 Range/Units 17:54 03:44 WBC 9.52 11.03 H (4.8-10.8) K/uL Hgb 12.5 11.2 L (12.0-16.0) g/dL Hct 37.7 34.9 L (37-47) % Plt Count 370 333 (130-400) K/uL BMP 11/03/20 11/04/20 17:54 03:44 Sodium 135 L 136 Potassium 3.8 3.4 L Chloride 102 106 Carbon Dioxide 31 26 BUN 13 12 Creatinine 1.34 H 1.30 H Glucose 85 107 H Calcium 8.2 L 7.7 L Cardiac Enzymes 11/03/20 11/04/20 Range/Units 17:54 03:44 Troponin I < 0.015 < 0.015 (0-0.045) ng/ml Liver Function 11/03/20 Range/Units 17:54 Total Bilirubin 0.8 (0.2-1) mg/dl AST 117 H (15-37) U/L ALT 128 H (12-78) U/L Alkaline Phosphatase 183 H (45-117) U/L Albumin 2.9 L (3.4-5.0) gm/dl Urine 11/03/20 Range/Units 19:00 Urine Color Yellow Urine Appearance Clear (Clear) Urine pH 6.5 (4.5-7.5) Ur Specific [place] 1.013 (1.000-1.030) Urine Protein 1+ H (Negative) Urine Glucose (UA) Negative (Negative) Medications Administered Current Inpatient Medications Acetaminophen (Acetaminophen 325 Mg Tab) 650 mg PO Q4H PRN PRN Reason: Pain or Fever Stop: 12/04/20 00:26 Last Admin: 11/04/20 03:50 Dose: 650 mg Documented by: Amiodarone HCl (Amiodarone 200 Mg Tab) 200 mg PO DAILY [facility] Stop: 12/04/20 08:59 Last Admin: 11/04/20 07:22 Dose: 200 mg Documented by: Betamethasone Dipropion Augmented (Betamethasone Dip Aug 0.05% Oint 15 Gm Tube) 1 appln EXT BID PRN PRN Reason: Itching Stop: 12/04/20 00:47 Cetirizine HCl (Cetirizine Hcl 10 Mg Tablet) 5 mg PO DAILY [facility]; Protocol Stop: 12/04/20 08:59 Last Admin: 11/04/20 07:21 Dose: 5 mg Documented by: Digoxin (Digoxin 0.125 Mg Tab) 0.125 mg PO [id number] [facility] Stop: 12/04/20 08:59 Last Admin: 11/04/20 07:22 Dose: 0.125 mg Documented by: Escitalopram Oxalate (Escitalopram Oxalate 10 Mg Tab) 5 mg PO QDD [facility] Stop: 12/04/20 16:29 Gabapentin (Gabapentin 100 Mg Cap) 100 mg PO BID [facility] Stop: 12/04/20 00:59 Last Admin: 11/04/20 07:21 Dose: 100 mg Documented by: Hydroxyzine HCl (Hydroxyzine Hcl 25 Mg Tab) 25 mg PO Q6H PRN PRN Reason: Itching Stop: 12/04/20 00:26 Last Admin: 11/04/20 07:22 Dose: 25 mg Documented by: Heparin Sodium/Dextrose (Heparin Sodium/Dextrose) 25,000 units in 500 mls @ 11 mls/hr IV .Q24H [facility]; Protocol Stop: 12/03/20 21:14 Last Titration: 11/04/20 07:37 Dose: 550 units/hr, 11 mls/hr Documented by: Sodium Chloride (Nss 1000ml) 1,000 mls @ 80 mls/hr IV .[id number] [facility] Stop: 11/04/20 12:56 Last Admin: 11/04/20 00:44 Dose: 80 mls/hr Documented by: Lactic Acid (Ammonium Lactate 12% Lotion 225 Gm Btl) 1 gm EXT BID PRN PRN Reason: Dry Skin Stop: 12/04/20 00:36 Levothyroxine Sodium (Levothyroxine Sodium 50 Mcg Tablet) [facility] Stop: 12/04/20 06:29 Last Admin: 11/04/20 05:38 Dose: 50 mcg Documented by: Loperamide HCl (Loperamide Hcl 2 Mg Cap) 2 mg PO UD PRN PRN Reason: Diarrhea Stop: 12/04/20 00:42 Metoprolol Succinate (Metoprolol Succ 25mg Ext Rel Tab) 25 mg PO DAILY [facility] Stop: 12/04/20 08:59 Last Admin: 11/04/20 07:22 Dose: 25 mg Documented by: Morphine Sulfate (Morphine Sulfate 2 Mg/Ml Carp) 2 mg IV Q4H PRN PRN Reason: Pain Stop: 11/18/20 10:21 Last Admin: 11/04/20 11:14 Dose: 2 mg Documented by: Nitroglycerin (Nitroglycerin Sl 0.4 Mg/Tab Tab) 0.4 mg SL UD PRN PRN Reason: Chest Pain Stop: 12/04/20 00:26 Nitroglycerin (Nitroglycerin Sl 0.4 Mg/Tab Tab) 0.4 mg SL UD PRN PRN Reason: Chest Pain Stop: 12/04/20 00:26 Ondansetron HCl (Ondansetron Inj 2 Mg/Ml 2 Ml Vial) 4 mg IV Q6H PRN PRN Reason: Nausea Stop: 12/04/20 00:26 Ondansetron HCl (Ondansetron 4 Mg Od Tab) 4 mg PO Q6H PRN PRN Reason: Nausea And Vomiting Stop: 12/04/20 00:44 Polyethylene Glycol (Polyethylene (Miralax) 17 Gm Pack) 17 gm PO DAILY PRN PRN Reason: Constipation Stop: 12/04/20 00:26 Ropinirole HCl (Ropinirole Hcl 0.25 Mg Tablet) 0.5 mg PO QDD [facility] Stop: 12/04/20 16:29 Ropinirole HCl (Ropinirole Hcl 0.25 Mg Tablet) 0.5 mg PO HS PRN PRN Reason: SPASM Stop: 12/04/20 00:48 Rosuvastatin Calcium (Rosuvastatin Calcium 10 Mg Tab) 10 mg PO HS [facility]AK[facility] Stop: 12/04/20 20:59 Tramadol HCl (Tramadol Hcl 50 Mg Tablet) 25 mg PO Q8H PRN PRN Reason: pain Stop: 12/04/20 00:26 Last Admin: 11/04/20 00:56 Dose: 25 mg Documented by: Vitamin D (Cholecalciferol 1,000 Units 25 Mcg Tab) 2,000 units PO DAILY [facility] Stop: 12/04/20 08:59 Last Admin: 11/04/20 07:21 Dose: 2,000 units Documented by: Warfarin Sodium (Warfarin Sod 1 Mg Tab) 1 mg PO QDD [facility] Stop: 12/04/20 16:29 Zinc Acetate/Diphenhydramine (Diphenhydramine 2%/Zinc 0.1% Cream 28gm Tube) 1 appln EXT QID PRN PRN Reason: Itching Stop: 12/04/20 00:26 (1) CKD (chronic kidney disease) Chronic kidney disease stage: unspecified stage Qualified Code(s): N18.9 - Chronic kidney disease, unspecified (2) Syncope Syncope type: unspecified Qualified Code(s): R55 - Syncope and collapse
--- NOTE | 2020-11-04 12:45 | Cardiology Consultation ---
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 CTA suggested left atrial thrombus not confirmed by echocardiogram. Patient with focal chest tenderness today secondary to contusion. No evidence of acute cardiac event. Recommendations: Continue anticoagulation with warfarin and usual cardiac medication We will follow in hospital Maintain telemetry while in hospital, history of paroxysmal atrial fibrillation now off amiodarone due to transaminitis History of Present Illness Reason for Consultation: Chest pain possible syncope Requesting Physician: Dr. Hernandez Attending Physician: Kevon Hernandez MD History of Present Illness Patient is an 89-year-old female with complex history which includes 1. Paroxysmal atrial fibrillation. 2. History of tachybrady syndrome status post dual-chamber pacemaker insertion. 3. 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 4. Cardiac catheterization in December of 2011 without obstructive coronary disease. 5. High vagal tone with recurrent vasovagal syncope. 6. Chronic diverticulitis status post colonic resection via sigmoid colectomy 10/25/2017 7. Restless leg syndrome 8. Acute Covid infection September 2020 with elevated LFTs Patient presents now noting yesterday while having her hair washed at her kitchen sink with head tilted back having a syncopal event with fall striking her chest. She presents with chest pain and discomfort. With focal tenderness across the chest. Initial ER evaluation included CTA of the chest which suggested left atrial thrombus. Patient is referred now for further medical evaluation and management Patient currently complains of tenderness on focal palpation of the chest. No dizziness or lightheadedness he is hungry and wishes to eat. No fevers or chills. No overt bleeding. Has been taking medications as prescribed. No cough or worsening shortness of breath. Weight has been trending slightly downward. Allergies Allergy/AdvReac Type Severity Reaction Status Date / Time ciprofloxacin Allergy Intermediate RASH Verified 11/03/20 18:45 estrogens, conjugated Allergy Intermediate SEVERE Verified 11/03/20 18:45 RASH, PAINFUL FROM VAGINAL CREAM Sulfa (Sulfonamide Allergy Intermediate HIVES, RASH Verified 11/03/20 18:45 Antibiotics) adhesive Allergy Unknown ADHESIVE Verified 11/03/20 18:45 TAPE-SKIN IRRITATION tetanus toxoid, adsorbed Allergy Unknown UNKNOWN Verified 11/03/20 18:45 Home Medications Medication Instructions Recorded Confirmed Type digoxin 125 mcg (0.125 mg) tablet 0.125 mg PO 3XWK 12/25/17 11/03/20 History levothyroxine 50 mcg tablet 50 mcg PO DAILYBB 12/25/17 11/03/20 History loperamide 2 mg tablet 2 mg PO DIRECTED PRN MDD 16 12/25/17 11/03/20 History MG/24 HOURS nitroglycerin 0.4 mg sublingual 0.4 mg SUBLINGUAL DIRECTED PRN 12/25/17 11/03/20 History tablet ondansetron 4 mg disintegrating 4 mg TRANSLINGUAL Q6 PRN 12/25/17 11/03/20 History tablet betamethasone dipropionate 0.05 % 1 applic TOPICAL BID PRN 01/02/18 11/03/20 History topical ointment diphenhydramine-zinc acetate 2 1 applic TOPICAL QID PRN 01/02/18 11/03/20 History %-0.1 % topical cream acetaminophen 325 mg tablet 650 mg PO Q6H PRN 08/21/18 11/03/20 History (Tylenol) amiodarone 200 mg tablet 200 mg PO DAILY 08/21/18 11/03/20 History hydroxyzine HCl 25 mg tablet 25 mg PO Q6 PRN 08/21/18 11/03/20 History cholecalciferol (vitamin D3) 50 50 mcg PO DAILY 05/31/19 11/03/20 History mcg (2,000 unit) tablet (Vitamin D3) escitalopram oxalate 5 mg tablet 5 mg PO QDD 05/31/19 11/03/20 History metoprolol succinate 25 mg 25 mg PO DAILY 05/31/19 11/03/20 History tablet,extended release 24 hr ammonium lactate 12 % topical cream 1 applic TOPICAL BID PRN 05/23/20 11/03/20 History levocetirizine 5 mg tablet 5 mg PO DAILY 05/23/20 11/03/20 History tramadol 50 mg tablet 25 mg PO Q8H PRN #10 tab 05/27/20 11/03/20 Rx ropinirole 0.5 mg tablet 0.5 mg PO QDD 08/10/20 11/03/20 History gabapentin 100 mg capsule 100 mg PO BID 11/03/20 11/03/20 History rosuvastatin 10 mg tablet 10 mg PO HS 11/03/20 11/03/20 History warfarin 1 mg tablet 1 mg PO QDD 11/03/20 11/03/20 History Patient History Medical History Atrial fibrillation Chronic diastolic CHF (congestive heart failure) CKD (chronic kidney disease), stage III Diverticular disease of colon Dyslipidemia Fall Generalized weakness HTN (hypertension) HTN (hypertension) Hypothyroidism Pacemaker RLS (restless legs syndrome) Rosacea SVT (supraventricular tachycardia) Tachy-enid syndrome Surgical History History of carpal tunnel surgery History of cataract surgery History of colon resection History of hysterectomy History of tonsillectomy and adenoidectomy History of total right knee replacement S/P laparoscopic-assisted sigmoidectomy S/P ELISHA (total abdominal hysterectomy) Family History Other Heart disease Social History Smoking Status: Never smoker Second Hand Exposure: No; Hx Alcohol Use: No Hx Substance Use: No Preferred Language: Telugu Communication Ability: Effective Visual Impairment: No Limitations Machine I Trimmer Required: No Beliefs That Will Affect Care: None marital status: / Current Living Situation: Family Current Living Situation Comment: LIVES WITH DAUGHTER HERNANDO Other Information That Helps Us Care for You: No Feels Safe at Home: Yes Safety Concerns: Feels Safe At This Time Assistive Devices: Cane and Walker Review of Systems Review of Systems: All systems reviewed & are unremarkable except as noted in HPI & below Physical Exam Constitutional: + thin; no acute distress Eyes: PERRL, conjunctivae normal, anicteric sclerae ENMT: external ear and nose normal, oropharynx normal Neck: trachea midline, no thyromegaly Respiratory: normal respiratory effort, lungs clear to auscultation Cardiovascular: Rate/Rhythm: regular rate and regular rhythm (Atrial paced) Heart Sounds: normal S1 and normal S2; no murmur and no cardiac rub Vessels: no JVD Extremities: no edema Chest (Breasts): Chest: + pacemaker Additional Comments: Focal tenderness and ecchymosis of precordial chest Gastrointestinal (Abdomen): normal bowel sounds, soft, nontender, no hepatosplenomegaly Musculoskeletal: Head/Neck/Chest: + chest tenderness Psychiatric: Orientation: alert and oriented x 3 Results & Data ([facility]) Vital Signs (Past 12 Hours) Vital Signs Temp Pulse Pulse Resp BP Pulse Ox 11/04/20 11:17 36.3 C L 63 22 139/63 91 11/04/20 09:35 91 H 11/04/20 07:22 65 11/04/20 07:16 65 21 162/88 H 98 11/04/20 03:27 36.6 C 61 18 143/67 H 94 11/04/20 01:19 36.9 C 61 16 157/70 H 97 11/04/20 01:08 61 140/71 Laboratory Results Laboratory Results - last 24 hr 11/03/20 11/03/20 11/03/20 17:54 17:54 17:54 WBC 9.52 RBC 4.20 Hgb 12.5 Hct 37.7 MCV 89.8 MCH 29.8 MCHC 33.2 RDW Std Deviation 57.9 H RDW Coeff of Mnio 17.7 H Plt Count 370 MPV 10.9 H Immature Gran % (Auto) 0.5 Neut % (Auto) 75.6 Lymph % (Auto) 12.9 Cochran % (Auto) 9.7 Eos % (Auto) 1.2 Baso % (Auto) 0.1 Neut # (Auto) 7.20 H Lymph # (Auto) 1.23 Cochran # (Auto) 0.92 H Eos # (Auto) 0.11 Baso # (Auto) 0.01 Immature Gran # (Auto) 0.05 H PT 15.7 H INR 1.6 H APTT 33.7 H PTT Ratio 1.3 D-Dimer Sodium 135 L Potassium 3.8 Chloride 102 Carbon Dioxide 31 Anion Gap 2.0 L BUN 13 Creatinine 1.34 H Est Cr Clr Drug Dosing 20.4 Est GFR ( Amer) 40.6 Est GFR (Non-Af Amer) 35.0 BUN/Creatinine Ratio 9.4 L Glucose 85 Lactate Calcium 8.2 L Magnesium Total Bilirubin 0.8 AST 117 H ALT 128 H Alkaline Phosphatase 183 H Troponin I < 0.015 Total Protein 6.9 Albumin 2.9 L Globulin 4.0 Albumin/Globulin Ratio 0.7 L TSH 6.880 H Urine Color Urine Appearance Urine pH Ur Specific [place] Urine Protein Urine Glucose (UA) Urine Ketones Urine Blood Urine Nitrite Urine Bilirubin Urine Urobilinogen Ur Leukocyte Esterase Urine WBC (Auto) Urine RBC (Auto) U Hyaline Cast (Auto) U Epithel Cells (Auto) Urine Bacteria (Auto) Urine Yeast COVID-19 Eval Order SARS-CoV-2 (PCR) 11/03/20 11/03/20 11/03/20 17:54 18:14 19:00 WBC RBC Hgb Hct MCV MCH MCHC RDW Std Deviation RDW Coeff of Mino Plt Count MPV Immature Gran % (Auto) Neut % (Auto) Lymph % (Auto) [place]ran % (Auto) Eos % (Auto) Baso % (Auto) Neut # (Auto) Lymph # (Auto) Cochran # (Auto) Eos # (Auto) Baso # (Auto) Immature Gran # (Auto) PT INR APTT PTT Ratio D-Dimer 1330 H* Sodium Potassium Chloride Carbon Dioxide Anion Gap BUN Creatinine Est Cr Clr Drug Dosing Est GFR ( Amer) Est GFR (Non-Af Amer) BUN/Creatinine Ratio Glucose Lactate 1.1 Calcium Magnesium Total Bilirubin AST ALT Alkaline Phosphatase Troponin I Total Protein Albumin Globulin Albumin/Globulin Ratio TSH Urine Color Yellow Urine Appearance Clear Urine pH 6.5 Ur Specific [place] 1.013 Urine Protein 1+ H Urine Glucose (UA) Negative Urine Ketones Negative Urine Blood Negative Urine Nitrite Negative Urine Bilirubin Negative Urine Urobilinogen Negative Ur Leukocyte Esterase Trace H Urine WBC (Auto) 1-5 Urine RBC (Auto) 0-4 U Hyaline Cast (Auto) 1-5 U Epithel Cells (Auto) 20-30 H Urine Bacteria (Auto) Negative Urine Yeast Not Reportable COVID-19 Eval Order SARS-CoV-2 (PCR) 11/03/20 11/03/20 11/04/20 21:50 21:50 03:44 WBC 11.03 H RBC 3.93 L Hgb 11.2 L Hct 34.9 L MCV 88.8 MCH 28.5 MCHC 32.1 RDW Std Deviation 57.5 H RDW Coeff of Mino 17.6 H Plt Count 333 MPV 11.5 H Immature Gran % (Auto) 0.5 Neut % (Auto) 78.1 Lymph % (Auto) 10.8 Cochran % (Auto) 9.2 Eos % (Auto) 1.2 Baso % (Auto) 0.2 Neut # (Auto) 8.61 H Lymph # (Auto) 1.19 L [place]ran # (Auto) 1.02 H Eos # (Auto) 0.13 Baso # (Auto) 0.02 Immature Gran # (Auto) 0.06 H PT INR APTT PTT Ratio D-Dimer Sodium Potassium Chloride Carbon Dioxide Anion Gap BUN Creatinine Est Cr Clr Drug Dosing Est GFR ( Amer) Est GFR (Non-Af Amer) BUN/Creatinine Ratio Glucose Lactate Calcium Magnesium Total Bilirubin AST ALT Alkaline Phosphatase Troponin I Total Protein Albumin Globulin Albumin/Globulin Ratio TSH Urine Color Urine Appearance Urine pH Ur Specific [place] Urine Protein Urine Glucose (UA) Urine Ketones Urine Blood Urine Nitrite Urine Bilirubin Urine Urobilinogen Ur Leukocyte Esterase Urine WBC (Auto) Urine RBC (Auto) U Hyaline Cast (Auto) U Epithel Cells (Auto) Urine Bacteria (Auto) Urine Yeast COVID-19 Eval Order Covid19 at [facility] SARS-CoV-2 (PCR) POSITIVE A* 11/04/20 11/04/20 11/04/20 03:44 03:44 06:59 WBC RBC Hgb Hct MCV MCH MCHC RDW Std Deviation RDW Coeff of Mino Plt Count MPV Immature Gran % (Auto) Neut % (Auto) Lymph % (Auto) [place] % (Auto) Eos % (Auto) Baso % (Auto) Neut # (Auto) Lymph # (Auto) [place]ran # (Auto) Eos # (Auto) Baso # (Auto) Immature Gran # (Auto) PT 17.2 H INR 1.8 H APTT > 139.0 H* 57.2 H* PTT Ratio > 5.3 2.2 D-Dimer Sodium 136 Potassium 3.4 L Chloride 106 Carbon Dioxide 26 Anion Gap 4.0 BUN 12 Creatinine 1.30 H Est Cr Clr Drug Dosing 21.1 Est GFR ( Amer) 42.1 Est GFR (Non-Af Amer) 36.3 BUN/Creatinine Ratio 9.3 L Glucose 107 H Lactate Calcium 7.7 L Magnesium 2.1 Total Bilirubin AST ALT Alkaline Phosphatase Troponin I < 0.015 Total Protein Albumin Globulin Albumin/Globulin Ratio TSH Urine Color Urine Appearance Urine pH Ur Specific [place] Urine Protein Urine Glucose (UA) Urine Ketones Urine Blood Urine Nitrite Urine Bilirubin Urine Urobilinogen Ur Leukocyte Esterase Urine WBC (Auto) Urine RBC (Auto) U Hyaline Cast (Auto) U Epithel Cells (Auto) Urine Bacteria (Auto) Urine Yeast COVID-19 Eval Order SARS-CoV-2 (PCR) 11/04/20 11:01 WBC RBC Hgb Hct MCV MCH MCHC RDW Std Deviation RDW Coeff of Mino Plt Count MPV Immature Gran % (Auto) Neut % (Auto) Lymph % (Auto) [place] % (Auto) Eos % (Auto) Baso % (Auto) Neut # (Auto) Lymph # (Auto) Cochran # (Auto) Eos # (Auto) Baso # (Auto) Immature Gran # (Auto) PT INR APTT PTT Ratio D-Dimer Sodium Potassium Chloride Carbon Dioxide Anion Gap BUN Creatinine Est Cr Clr Drug Dosing Est GFR ( Amer) Est GFR (Non-Af Amer) BUN/Creatinine Ratio Glucose Lactate Calcium Magnesium Total Bilirubin AST ALT Alkaline Phosphatase Troponin I < 0.015 Total Protein Albumin Globulin Albumin/Globulin Ratio TSH Urine Color Urine Appearance Urine pH Ur Specific [place] Urine Protein Urine Glucose (UA) Urine Ketones Urine Blood Urine Nitrite Urine Bilirubin Urine Urobilinogen Ur Leukocyte Esterase Urine WBC (Auto) Urine RBC (Auto) U Hyaline Cast (Auto) U Epithel Cells (Auto) Urine Bacteria (Auto) Urine Yeast COVID-19 Eval Order SARS-CoV-2 (PCR) (1) Syncope Syncope type: unspecified Qualified Code(s): R55 - Syncope and collapse
[2020-11-04] MEDS: ESCITALOPRAM OXALATE 10 MG TAB PO SCH (16:11)
[2020-11-04] MEDS: rOPINIRole HCL 0.25 MG TABLET PO SCH (16:11)
[2020-11-04] MEDS: WARFARIN SOD 1 MG TAB PO SCH (16:11)
[2020-11-04] MEDS: DICLOFENAC SOD 1% GEL 100 GM TUBE EXT SCH (19:43)
[2020-11-04] MEDS: ROSUVASTATIN CALCIUM 10 MG TAB PO SCH (19:44)
[2020-11-04] MEDS: rOPINIRole HCL 0.25 MG TABLET PO PRN (20:57)
[2020-11-05] MEDS: LEVOTHYROXINE SODIUM 50 MCG TABLET PO SCH (05:37)
[2020-11-05 06:10] LABS: Basophils # (auto) 0.01 K/uL (0-0.2); Basophils % (auto) 0.1 %; Eosinophils # (auto) 0.25 K/uL (0-0.5); Eosinophils % (auto) 2.6 %; Hematocrit (blood only) 32.3 % (37-47); Hemoglobin 10.2 g/dL (12.0-16.0); Immature Granulocytes # (auto) 0.04 K/uL (0.00-0.02); Immature Granulocytes % (auto) 0.4 %; Lymphocytes % (auto) 15.8 %; Mean Corpuscular Hemoglobin 28.8 pg (25-34); Mean Corpuscular Hgb Conc 31.6 g/dL (32-36); Mean Corpuscular Volume 91.2 fL (80-100); Mean Platelet Volume 10.7 fL (7.4-10.4); Monocytes # (auto) 0.88 K/uL (0.11-0.59); Monocytes % (auto) 9.3 %; Neutrophils # (auto) 6.79 K/uL (1.4-6.5); Neutrophils % (auto) 71.8 %; Platelet Count 348 K/uL (130-400); RDW Coefficient of Variation 17.7 % (11.5-14.5); RDW Standard Deviation 59.5 fL (36.4-46.3); Red Blood Count 3.54 M/uL (4.2-5.4); White Blood Count 9.47 K/uL (4.8-10.8)
[2020-11-05 06:20] LABS: INR 1.5 (0.9-1.1); Prothrombin Time 14.6 Seconds (9.0-12.0)
[2020-11-05] MEDS: traMADol HCL 50 MG TABLET PO PRN ×2 (06:20→16:37)
[2020-11-05 07:06] LABS: Albumin Level 2.4 gm/dl (3.4-5.0); BUN Creatinine Ratio 9.2 (10-20); Calcium 7.8 mg/dl (8.5-10.1); Creatinine Clr Calc Pharmacy 23.8 ml/min; Est GFR (African American) 48.9 ml/min; Est GFR (Non-African American) 42.2 ml/min; Potassium 3.7 mmol/L (3.5-5.1)
[2020-11-05 07:15] LABS: Albumin Globulin Ratio 0.7 (0.9-2); Bilirubin,Total 0.9 mg/dl (0.2-1); Globulin 3.3 gm/dl (2.5-4.0); Total Protein 5.7 gm/dl (6.4-8.2)
[2020-11-05] MEDS: CHOLECALCIFEROL 1,000 UNITS 25 MCG TAB PO SCH (07:36)
[2020-11-05] MEDS: METOPROLOL SUCC 25MG EXT REL TAB PO SCH (07:36)
[2020-11-05] MEDS: CETIRIZINE HCL 10 MG TABLET PO SCH (07:36)
[2020-11-05] MEDS: GABAPENTIN 100 MG CAP PO SCH ×2 (07:37→19:30)
[2020-11-05] MEDS: AMIODARONE 200 MG TAB PO SCH (07:37)
[2020-11-05] MEDS: DICLOFENAC SOD 1% GEL 100 GM TUBE EXT SCH ×3 (07:37→19:31)
--- NOTE | 2020-11-05 12:19 | Hospitalist Progress Note ---
Date of Service November 05, 2020 Assessment & Plan (1) Syncope: Plan: History of recurrent syncope/falls No significant causes identified in the past Admitted with another fall at home-likely mechanical fall with injury to anterior chest wall without any fracture of bones No arrhythmias on monitor and has paced rhythm at 61 bpm on examination Denies any dizziness, palpitation or shortness of breath Remains stable without any acute distress Wants to go home Difficulty in voiding Has had Pizano catheter with urology appointment as an outpatient before admission Pizano was taken out as per request from the daughter She required straight cath x2 last night Awaiting to see if she can void If she cannot she will need Pizano to go home may be end of the day today or even tomorrow (2) Chest pain: Plan: Has been complaining of chest pain Anterior chest wall likely secondary to fall No evidence of fracture of the ribs and no local bruising Minimally tender on palpation Will give morphine on top of her usual pain medication while in the hospital Denies any more pain (3) Left atrial thrombus: Plan: Incidental finding of possible left atrial thrombus on CTA of the chest Has been started on intravenous heparin Echo of the heart ruled out any NORA thrombus Appreciate cardiology input and recommendation We will discontinue intravenous heparin (4) Atrial fibrillation: Plan: Has paced rhythm Has been on Coumadin and INR is 1.8 today Rate is controlled INR is 1.5 today (5) Chronic diastolic CHF (congestive heart failure): Plan: No evidence of fluid overload (6) CKD (chronic kidney disease): Plan: Creatinine remains stable at 1.30 CHASITY on chronic kidney disease Resolved to her normal level (7) Hypothyroidism: Plan: Continue supplement Has anxiety/depression Continue current medication Plan: Awaiting PT and OT before discharge home this afternoon or even tomorrow Admission and Anticipated Discharge Date Admission Date: November 03, 2020 Subjective 11/04/2020 The patient was seen and examined in the telemetry unit and in Covid room She was admitted with a fall at home/syncope with history of recurrent falls and severe anxiety She has been complaining of anterior chest pain without any radiation or any associated symptoms of shortness of breath, palpitation, nausea and or vomiting 11/05/2020 The patient was seen and examined in telemetry unit and in the Covid room She has been feeling much better and denies any respiratory symptoms Her chest pain is almost gone She required straight cath last night and is still awaiting to see if she can void by herself We will get PT and OT evaluation for possible discharge this afternoon Review of Systems Review of Systems: All systems reviewed and are unremarkable except as noted below Constitutional: + body aches Musculoskeletal: Anterior chest pain without any radiation and no shortness of breath Neurologic: Alert and awake Psychiatric: Very anxious-less anxious today Physical Exam Physical Exam: Sitting on a chair without any acute distress Constitutional: + acute distress (Anxiety and pain), + ill appearing and + thin Eyes: PERRL, conjunctivae normal, anicteric sclerae ENMT: external ear and nose normal, oropharynx normal Neck: trachea midline, no thyromegaly Respiratory: no respiratory distress and no cough Auscultation: lungs clear to auscultation bilaterally Cardiovascular: Rate/Rhythm: regular rate and regular rhythm; not tachycardic Heart Sounds: normal S1 and normal S2; no murmur Extremities: + edema (Trace edema bilaterally) Gastrointestinal (Abdomen): Inspection/Auscultation: normal bowel sounds; abdomen not distended Percussion/Palpation: abdomen soft; abdomen nontender Musculoskeletal: Minimal tenderness on palpation of anterior chest wall over sternum Neurologic: Alert, awake and oriented x3. She is generally weak but denies any focal weakness Psychiatric: Mood: + anxious mood Results & Data Results & Data ([facility]) Vital Signs (Past 12 Hours) Vital Signs Temp Pulse Pulse Resp BP BP Pulse Ox 11/05/20 11:23 36.8 C 67 17 117/57 L 95 11/05/20 08:36 60 11/05/20 07:17 36.9 C 60 17 136/67 94 11/05/20 04:24 36.9 C 62 16 130/74 95 11/05/20 00:47 62 Laboratory Results Short CBC 11/05/20 Range/Units 05:50 WBC 9.47 (4.8-10.8) K/uL Hgb 10.2 L (12.0-16.0) g/dL Hct 32.3 L (37-47) % Plt Count 348 (130-400) K/uL BMP 11/05/20 05:50 Sodium 135 L Potassium 3.7 Chloride 105 Carbon Dioxide 26 BUN 11 Creatinine 1.15 Glucose 85 Calcium 7.8 L Liver Function 11/05/20 Range/Units 05:50 Total Bilirubin 0.9 (0.2-1) mg/dl AST 63 H (15-37) U/L ALT 77 (12-78) U/L Alkaline Phosphatase 134 H (45-117) U/L Albumin 2.4 L (3.4-5.0) gm/dl Medications Administered Current Inpatient Medications Acetaminophen (Acetaminophen 325 Mg Tab) 650 mg PO Q4H PRN PRN Reason: Pain or Fever Stop: 12/04/20 00:26 Last Admin: 11/04/20 03:50 Dose: 650 mg Documented by: Amiodarone HCl (Amiodarone 200 Mg Tab) 200 mg PO DAILY [facility] Stop: 12/04/20 08:59 Last Admin: 11/05/20 07:37 Dose: 200 mg Documented by: Betamethasone Dipropion Augmented (Betamethasone Dip Aug 0.05% Oint 15 Gm Tube) 1 appln EXT BID PRN PRN Reason: Itching Stop: 12/04/20 00:47 Cetirizine HCl (Cetirizine Hcl 10 Mg Tablet) 5 mg PO DAILY [facility]; Protocol Stop: 12/04/20 08:59 Last Admin: 11/05/20 07:36 Dose: 5 mg Documented by: Diclofenac Sodium (Diclofenac Sod 1% Gel 100 Gm Tube) 2 gm EXT TID [facility] Stop: 12/04/20 20:59 Last Admin: 11/05/20 07:37 Dose: 2 gm Documented by: Digoxin (Digoxin 0.125 Mg Tab) 0.125 mg PO MoWeFr@[id number] [facility] Stop: 12/04/20 08:59 Last Admin: 11/04/20 07:22 Dose: 0.125 mg Documented by: Escitalopram Oxalate (Escitalopram Oxalate 10 Mg Tab) 5 mg PO QDD [facility] Stop: 12/04/20 16:29 Last Admin: 11/04/20 16:11 Dose: 5 mg Documented by: Gabapentin (Gabapentin 100 Mg Cap) 100 mg PO BID [facility] Stop: 12/04/20 00:59 Last Admin: 11/05/20 07:37 Dose: 100 mg Documented by: Hydroxyzine HCl (Hydroxyzine Hcl 25 Mg Tab) 25 mg PO Q6H PRN PRN Reason: Itching Stop: 12/04/20 00:26 Last Admin: 11/04/20 07:22 Dose: 25 mg Documented by: Lactic Acid (Ammonium Lactate 12% Lotion 225 Gm Btl) 1 gm EXT BID PRN PRN Reason: Dry Skin Stop: 12/04/20 00:36 Levothyroxine Sodium (Levothyroxine Sodium 50 Mcg Tablet) 50 mcg PO DAILYBB [facility] Stop: 12/04/20 06:29 Last Admin: 11/05/20 05:37 Dose: 50 mcg Documented by: Loperamide HCl (Loperamide Hcl 2 Mg Cap) 2 mg PO UD PRN PRN Reason: Diarrhea Stop: 12/04/20 00:42 Metoprolol Succinate (Metoprolol Succ 25mg Ext Rel Tab) 25 mg PO DAILY [facility] Stop: 12/04/20 08:59 Last Admin: 11/05/20 07:36 Dose: 25 mg Documented by: Morphine Sulfate (Morphine Sulfate 2 Mg/Ml Carp) 2 mg IV Q4H PRN PRN Reason: Pain Stop: 11/18/20 10:21 Last Admin: 11/04/20 11:14 Dose: 2 mg Documented by: Nitroglycerin (Nitroglycerin Sl 0.4 Mg/Tab Tab) 0.4 mg SL UD PRN PRN Reason: Chest Pain Stop: 12/04/20 00:26 Nitroglycerin (Nitroglycerin Sl 0.4 Mg/Tab Tab) 0.4 mg SL UD PRN PRN Reason: Chest Pain Stop: 12/04/20 00:26 Ondansetron HCl (Ondansetron Inj 2 Mg/Ml 2 Ml Vial) 4 mg IV Q6H PRN PRN Reason: Nausea Stop: 12/04/20 00:26 Ondansetron HCl (Ondansetron 4 Mg Od Tab) 4 mg PO Q6H PRN PRN Reason: Nausea And Vomiting Stop: 12/04/20 00:44 Polyethylene Glycol (Polyethylene (Miralax) 17 Gm Pack) 17 gm PO DAILY PRN PRN Reason: Constipation Stop: 12/04/20 00:26 Ropinirole HCl (Ropinirole Hcl 0.25 Mg Tablet) 0.5 mg PO QDD [facility] Stop: 12/04/20 16:29 Last Admin: 11/04/20 16:11 Dose: 0.5 mg Documented by: Ropinirole HCl (Ropinirole Hcl 0.25 Mg Tablet) 0.5 mg PO HS PRN PRN Reason: SPASM Stop: 12/04/20 00:48 Last Admin: 11/04/20 20:57 Dose: 0.5 mg Documented by: Rosuvastatin Calcium (Rosuvastatin Calcium 10 Mg Tab) 10 mg PO HS [facility] Stop: 12/04/20 20:59 Last Admin: 11/04/20 19:44 Dose: 10 mg Documented by: Tramadol HCl (Tramadol Hcl 50 Mg Tablet) 25 mg PO Q8H PRN PRN Reason: pain Stop: 12/04/20 00:26 Last Admin: 11/05/20 06:20 Dose: 25 mg Documented by: Vitamin D (Cholecalciferol 1,000 Units 25 Mcg Tab) 2,000 units PO DAILY [facility] Stop: 12/04/20 08:59 Last Admin: 11/05/20 07:36 Dose: 2,000 units Documented by: Warfarin Sodium (Warfarin Sod 1 Mg Tab) 1 mg PO QDD [facility] Stop: 12/04/20 16:29 Last Admin: 11/04/20 16:11 Dose: 1 mg Documented by: Zinc Acetate/Diphenhydramine (Diphenhydramine 2%/Zinc 0.1% Cream 28gm Tube) 1 appln EXT QID PRN PRN Reason: Itching Stop: 12/04/20 00:26 (1) Syncope Syncope type: unspecified Qualified Code(s): R55 - Syncope and collapse (2) CKD (chronic kidney disease) Chronic kidney disease stage: unspecified stage Qualified Code(s): N18.9 - Chronic kidney disease, unspecified
[2020-11-05] MEDS: WARFARIN SOD 1 MG TAB PO SCH (16:36)
[2020-11-05] MEDS: rOPINIRole HCL 0.25 MG TABLET PO SCH (16:36)
[2020-11-05] MEDS: ESCITALOPRAM OXALATE 10 MG TAB PO SCH (16:37)
--- NOTE | 2020-11-05 18:27 | Electrocardiogram Report ---
Test Reason : Blood Pressure : / mmHG Vent. Rate : 060 BPM Atrial Rate : 326 BPM P-R Int : 320 ms QRS Dur : 098 ms QT Int : 418 ms P-R-T Axes : 000 -50 082 degrees QTc Int : 418 ms Atrial-paced rhythm with prolonged AV conduction Left anterior fascicular block Nonspecific ST and T wave abnormality Abnormal ECG When compared with ECG of 04-NOV-2020 01:00, No significant change was found Confirmed by Hernando Ruth ([id number]) on 11/05/2020 6:26:47 PM Referred By: REFERRED SELF Confirmed By:Guicho Ruth
[2020-11-05] MEDS: ROSUVASTATIN CALCIUM 10 MG TAB PO SCH (19:30)
[2020-11-05] MEDS: rOPINIRole HCL 0.25 MG TABLET PO PRN (19:30)
[2020-11-06] MEDS: LEVOTHYROXINE SODIUM 50 MCG TABLET PO SCH (05:31)
[2020-11-06 06:58] LABS: INR 1.5 (0.9-1.1)
[2020-11-06 07:57] VITALS: TEMP 98.2; O2SAT 95
[2020-11-06] MEDS: DIGOXIN 0.125 MG TAB PO SCH (08:11)
[2020-11-06] MEDS: AMIODARONE 200 MG TAB PO SCH (08:11)
[2020-11-06] MEDS: DICLOFENAC SOD 1% GEL 100 GM TUBE EXT SCH ×2 (08:11→13:06)
[2020-11-06] MEDS: GABAPENTIN 100 MG CAP PO SCH (08:11)
[2020-11-06] MEDS: CHOLECALCIFEROL 1,000 UNITS 25 MCG TAB PO SCH (08:12)
[2020-11-06] MEDS: METOPROLOL SUCC 25MG EXT REL TAB PO SCH (08:12)
[2020-11-06] MEDS: CETIRIZINE HCL 10 MG TABLET PO SCH (08:12)
[2020-11-06 11:25] VITALS: PULSE 64
--- NOTE | 2020-11-06 12:59 | Hospitalist Progress Note ---
Date of Service November 06, 2020 Assessment & Plan (1) Syncope: Plan: History of recurrent syncope/falls No significant causes identified in the past Admitted with another fall at home-likely mechanical fall with injury to anterior chest wall without any fracture of bones No arrhythmias on monitor and has paced rhythm at 61 bpm on examination Denies any dizziness, palpitation or shortness of breath Remains stable without any acute distress Wants to go home Has had PT and OT evaluation and recommended SNF Will discuss with the daughter before discharging the patient Difficulty in voiding Has had Pizano catheter with urology appointment as an outpatient before admission Pizano was taken out as per request from the daughter She required straight cath x2 last night Awaiting to see if she can void If she cannot she will need Pizano to go home may be end of the day today or even tomorrow Her Pizano has been back-we will keep it in until she is evaluated by urologist as an outpatient Discussed with the daughter and 2 she wants her mom home with home PT as sc heduled (2) Chest pain: Plan: Has been complaining of chest pain Anterior chest wall likely secondary to fall No evidence of fracture of the ribs and no local bruising Minimally tender on palpation Will give morphine on top of her usual pain medication while in the hospital Denies any more pain Pain is reasonably controlled (3) Left atrial thrombus: Plan: Incidental finding of possible left atrial thrombus on CTA of the chest Has been started on intravenous heparin Echo of the heart ruled out any NORA thrombus Appreciate cardiology input and recommendation We will discontinue intravenous heparin (4) Atrial fibrillation: Plan: Has paced rhythm Has been on Coumadin and INR is 1.8 today Rate is controlled INR is 1.5 today We will advised to take 1 extra milligram of warfarin today (5) Chronic diastolic CHF (congestive heart failure): Plan: No evidence of fluid overload (6) CKD (chronic kidney disease): Plan: Creatinine remains stable at 1.30 CHASITY on chronic kidney disease Resolved to her normal level (7) Hypothyroidism: Plan: Continue supplement Has anxiety/depression Continue current medication Plan: Awaiting PT and OT before discharge home this afternoon or even tomorrow PT recommended SNF but daughter wanted to take her home She will be discharged home this afternoon Admission and Anticipated Discharge Date Admission Date: November 03, 2020 Subjective 11/04/2020 The patient was seen and examined in the telemetry unit and in Covid room She was admitted with a fall at home/syncope with history of recurrent falls and severe anxiety She has been complaining of anterior chest pain without any radiation or any associated symptoms of shortness of breath, palpitation, nausea and or vomiting 11/05/2020 The patient was seen and examined in telemetry unit and in the Covid room She has been feeling much better and denies any respiratory symptoms Her chest pain is almost gone She required straight cath last night and is still awaiting to see if she can void by herself We will get PT and OT evaluation for possible discharge this afternoon 11/06/2020 The patient was seen and examined in telemetry unit and in the Covid room She has been feeling much better but remains very anxious Today she complains some pain in the chest but wants to go home She has had physical therapy evaluation-recommended SNF Discussed with the daughter and she wants her mom home Review of Systems Review of Systems: All systems reviewed and are unremarkable except as noted below Constitutional: + body aches Musculoskeletal: Anterior chest pain without any radiation and no shortness of breath Neurologic: Alert and awake Psychiatric: Very anxious-less anxious today Physical Exam Physical Exam: Sitting on a chair without any acute distress Constitutional: + acute distress (Anxiety and pain), + ill appearing and + thin Eyes: PERRL, conjunctivae normal, anicteric sclerae ENMT: external ear and nose normal, oropharynx normal Neck: trachea midline, no thyromegaly Respiratory: no respiratory distress and no cough Auscultation: lungs clear to auscultation bilaterally Cardiovascular: Rate/Rhythm: regular rate and regular rhythm; not tachycardic Heart Sounds: normal S1 and normal S2; no murmur Extremities: + edema (Trace edema bilaterally) Gastrointestinal (Abdomen): Inspection/Auscultation: normal bowel sounds; abdomen not distended Percussion/Palpation: abdomen soft; abdomen nontender Musculoskeletal: No acute arthritis in any joint Neurologic: Very anxious but otherwise alert, awake and oriented x3. Generally weak and lethargic Psychiatric: Mood: + anxious mood Results & Data Results & Data ([facility]) Vital Signs (Past 12 Hours) Vital Signs Temp Pulse Pulse Resp BP Pulse Ox 11/06/20 11:24 36.8 C 64 18 160/72 H 95 11/06/20 08:11 62 11/06/20 08:00 61 11/06/20 07:57 36.8 C 61 18 128/64 95 11/06/20 03:37 36.9 C 62 14 128/65 96 (1) CKD (chronic kidney disease) Chronic kidney disease stage: unspecified stage Qualified Code(s): N18.9 - Chronic kidney disease, unspecified (2) Syncope Syncope type: unspecified Qualified Code(s): R55 - Syncope and collapse
[2020-11-06 15:21] VITALS: BP 117/57
--- NOTE | 2020-11-16 16:30 | Discharge Summary ---
Date of Service November 16, 2020 Admission HPI Per Admitting Provider DICTATED BY: René Tan MD DATE OF ADMISSION: 11/03/2020. CHIEF COMPLAINT: Syncope. HISTORY OF PRESENT ILLNESS: This is an 89-year-old female with past medical history significant for paroxysmal atrial fibrillation, on anticoagulation with warfarin, history of tachybrady syndrome, status post pacemaker, history of chronic diastolic congestive heart failure, history of hypertension, hyperlipidemia, history of SVT, history of chronic kidney disease stage III, hypothyroidism, hyperparathyroidism, restless legs syndrome, history of neurofibroma multiple sites, Dupuytren contracture right hand, history of psychogenic nonepileptic seizures, generalized anxiety, frequent falls, who lives at home with her daughter, ambulates with a walker, presents after a fall. The patient was recently in the hospital, admitted on 10/22/2020, at that time with syncope and fall. At that time, COVID came back positive. She had her Moderna vaccine, second dose was on 04/30/2020 and she did not require oxygen, did not require any treatment and during hospitalization, she also had acute urinary retention. She was placed on Moody catheter and supposed to follow. As per nursing staff home health supposed to take the catheter out and supposed to follow up with Urology. Still has moody. During last hospitalization she has also persistent LFT elevation. For that reason, amiodarone was held, but rest arted at time of discharge. Because of persistent elevation of INR her Coumadin was also held at discharge and . Her LFT elevation thought to be secondary to COVID and to follow outpatient. GI recommended if persistent LFT and not resolved, plan for MRCP. She was adviced to go to rehab, but the patient declined rehab and she went home to live with her daughter. Today she was at the sink, she fell on the sink and was brought to the hospital complaining of chest pain. CTA of the chest was done, there is no PE, but showed a thrombosed left atrial appendage. ER doctor called the on-call cardiology, Dr. Ruth and recommended to start on IV heparin as the INR was subtherapeutic and will be evaluated by echo in a.m. The patient is resting comfortably,but very hard of hearing. Denies any headache, denies any blurred visions, no runny nose, no sore throat. No cough. She says her appetite is good and she swallows okay. She is currently hungry and wants to eat. Denies any shortness of breath. Denies any fevers. Denies any nausea, no abdominal pain. She has normal bowel and bladder movements. Admission Exam Per Admitting Provider GENERAL: The patient is old and frail, not in acute distress. VITAL SIGNS: Temperature 36.6, pulse 61, respiratory rate 22, blood pressure 141/78, oxygen 96%. HEENT: Pupils equal, round and reactive to light. Oral mucosa moist. NECK: No JVD. No neck masses. CARDIOVASCULAR: S1 and S2 heard, regular rate and rhythm. No murmur, no gallop. Has point tenderness in the midsternal region. RESPIRATORY SYSTEM: Normal AP diameter. No accessory muscle use. No wheezing, no crackles. ABDOMEN: Soft, bowel sounds present, nontender, no distention. CENTRAL NERVOUS SYSTEM: Cranial nerves II-XII grossly intact, nonfocal. EXTREMITIES: No edema, no erythema. Principal Diagnosis Recurrent syncope/falls, difficulty in voiding status post Moody catheter, chest pain-no ACS, atrial fibrillation Discharge Exam Constitutional + acute distress (Anxiety and pain), + ill appearing and + thin Eyes PERRL, conjunctivae normal, anicteric sclerae ENMT external ear and nose normal, oropharynx normal Neck trachea midline, no thyromegaly Respiratory no respiratory distress and no cough Auscultation: lungs clear to auscultation bilaterally Cardiovascular Rate/Rhythm: regular rate and regular rhythm; not tachycardic Heart Sounds: normal S1 and normal S2; no murmur Extremities: + edema (Trace edema bilaterally) Gastrointestinal (Abdomen) Inspection/Auscultation: normal bowel sounds; abdomen not distended Percussion/Palpation: abdomen soft; abdomen nontender Psychiatric Mood: + anxious mood Discharge Data Allergies Allergy/AdvReac Type Severity Reaction Status Date / Time ciprofloxacin Allergy Intermediate RASH Verified 11/10/20 16:12 estrogens, conjugated Allergy Intermediate SEVERE Verified 11/10/20 16:12 RASH, PAINFUL FROM VAGINAL CREAM Sulfa (Sulfonamide Allergy Intermediate HIVES, RASH Verified 11/10/20 16:12 Antibiotics) adhesive Allergy Unknown ADHESIVE Verified 11/10/20 16:12 TAPE-SKIN IRRITATION tetanus toxoid, adsorbed Allergy Unknown UNKNOWN Verified 11/10/20 16:12 Consultations 11/03/20 20:50 ED Decision to Admit Stat 11/04/20 08:00 Consult Cardiology Routine Ordered Studies 11/03/20 18:02 CT head/brain wo con Stat 11/03/20 18:41 CT cervical spine wo con Stat 11/03/20 19:27 CT angio chest PE protocol Urgent Hospital Course (1) Syncope: History of recurrent syncope/falls No significant causes identified in the past Admitted with another fall at home-likely mechanical fall with injury to anterior chest wall without any fracture of bones No arrhythmias on monitor and has paced rhythm at 61 bpm on examination Denies any dizziness, palpitation or shortness of breath Remains stable without any acute distress Wants to go home Has had PT and OT evaluation and recommended SNF Will discuss with the daughter before discharging the patient Difficulty in voiding Has had Moody catheter with urology appointment as an outpatient before admission Moody was taken out as per request from the daughter She required straight cath x2 last night Awaiting to see if she can void If she cannot she will need Moody to go home may be end of the day today or even tomorrow Her Moody has been back-we will keep it in until she is evaluated by urologist as an outpatient Discussed with the daughter and 2 she wants her mom home with home PT as scheduled (2) Chest pain: Has been complaining of chest pain Anterior chest wall likely secondary to fall No evidence of fracture of the ribs and no local bruising Minimally tender on palpation Will give morphine on top of her usual pain medication while in the hospital Denies any more pain Pain is reasonably controlled (3) Left atrial thrombus: Incidental finding of possible left atrial thrombus on CTA of the chest Has been started on intravenous heparin Echo of the heart ruled out any NORA thrombus Appreciate cardiology input and recommendation We will discontinue intravenous heparin (4) Atrial fibrillation: Has paced rhythm Has been on Coumadin and INR is 1.8 today Rate is controlled INR is 1.5 today We will advised to take 1 extra milligram of warfarin today (5) Chronic diastolic CHF (congestive heart failure): No evidence of fluid overload (6) CKD (chronic kidney disease): Creatinine remains stable at 1.30 CHASITY on chronic kidney disease Resolved to her normal level (7) Hypothyroidism: Continue supplement Has anxiety/depression Continue current medication Awaiting PT and OT before discharge home this afternoon or even tomorrow PT recommended SNF but daughter wanted to take her home She will be discharged home this afternoon Total Time Total Time Spent Total Time Spent (In Minutes): 35 minutes Discharge Plan Discharge Items Patient Disposition: Home - Home Health Services Reason For Visit: SYNCOPE Discharge Diagnosis: Recurrent syncope/falls, difficulty in voiding status post Moody catheter, chest pain-no ACS, atrial fibrillation Condition on Discharge: Fair Activity: Resume your previous activity Non-emergency contact: Primary Care Provider Call non-emergency contact if: you have any medication questions and your symptoms worsen Follow-up/Referrals: Roly Vogel MD [Primary Care Provider] - (Date & Time 11/13/2020 3:00 PM Provider Roly Vogel MD Department Family Medicine [facility] PLEASE NOTE THAT THIS IS A TELEHEALTH APPOINTMENT. PLEASE FOLLOW THE INSTRUCTIONS PROVIDED IN YOUR EMAIL. IF YOU HAVE ANY QUESTIONS REGARDING THIS APPOINTMENT, PLEASE CALL ) Diet: Heart Healthy and Low Sodium (2gm) Addtl Attending Provider Instructions: Please take extra precautions to avoid falls No change in your current medications You should take an extra dose of warfarin only for today today and should have regular follow-up with your coagulation clinic Pending Studies at Discharge: No Stand-Alone Forms: My [employer], Smoking Cessation Medications and DC Order Prescriptions: Continued amiodarone 200 mg Tablet 200 mg PO DAILY RF: 0 hydroxyzine HCl 25 mg Tablet 25 mg PO Q6 PRN (Reason: Itching) RF: 0 cholecalciferol (vitamin D3) [Vitamin D3] 50 mcg (2,000 unit) Tablet 50 mcg PO DAILY RF: 0 escitalopram oxalate 5 mg tablet 5 mg PO QDD RF: 0 metoprolol succinate 25 mg tablet extended release 24 hr 25 mg PO DAILY RF: 0 loperamide 2 mg Tablet 2 mg PO DIRECTED MDD 16 MG/24 HOURS PRN (Reason: Diarrhea) RF: 0 levothyroxine 50 mcg Tablet 50 mcg PO DAILYBB RF: 0 nitroglycerin 0.4 mg Tablet, Sublingual 0.4 mg Sublingual DIRECTED PRN (Reason: Chest Pain) RF: 0 digoxin 125 mcg Tablet 0.125 mg PO MOWEFR@0900 RF: 0 ondansetron 4 mg Tablet,Disintegrating 4 mg translingual Q6 PRN (Reason: Nausea) RF: 0 diphenhydramine-zinc acetate 2-0.1 % cream 1 applic Topical QID PRN (Reason: Itching) RF: 0 betamethasone dipropionate 0.05 % ointment 1 applic Topical BID PRN (Reason: Itching) RF: 0 gabapentin 100 mg capsule 100 - 200 mg PO HS RF: 0 levocetirizine 5 mg tablet 5 mg PO DAILY RF: 0 ammonium lactate 12 % cream 1 applic TOPICAL BID PRN (Reason: Dry Skin) RF: 0 ropinirole 0.5 mg tablet 0.5 mg PO QDD RF: 0 No Action warfarin 1 mg tablet 1 mg PO SUTUTHFRSA@1600 RF: 0 diclofenac sodium 1 % gel 2 g TOPICAL TID RF: 0 rosuvastatin 10 mg tablet 10 mg PO DAILY RF: 0 warfarin 2 mg Tablet 2 mg PO MOWE@1600 RF: 0 acetaminophen [Tylenol Extra Strength] 500 mg Tablet 1,000 mg PO Q8H Qty: 60 RF: 0 tramadol 50 mg Tablet 25 mg PO Q8H Qty: 20 RF: 0 aspirin 81 mg tablet,delayed release (DR/EC) 81 mg PO DAILY Qty: 90 RF: 0 Discharge Orders: Discharge Order (Routine); Ordered 11/06/20 Ordered By: Kevon Hernandez Admission Data Admit Date/Time: 11/03/20 22:23 Attending Provider: Kevon Hernandez Admit Provider: René Tan Primary Care Provider: Roly Vgoel Other Providers: Gennaro Estevez Other Interventions: Discharge Summary Assessment (RN) Last Done: 11/06/20 15:20
== END 2020-11-06 16:06 | disposition home health service (06) | DRG 312 ==
LOC: ED 17:13 → 2E 22:23

== ENCOUNTER 2020-11-10 15:50 | Inpatient (IN) ==
--- NOTE | 2020-11-10 16:09 | Emergency Department Note ---
Impression & Plan Chest pain, CKD (chronic kidney disease), stage III, COVID-19 ED Provider Note NAME: MARY WINKLER AGE: 89 SEX: F : 1930 ARRIVES VIA: Ambulance INFORMANT: patient, ED PROVIDER(S): Jean Carlos Palumbo MD Chief Complaint: Chest pain HPI: Patient does present with left-sided sharp chest pain that is been ongoing intermittently for about 2 to 3 days. The patient denies any fevers or chills or shortness of breath. Patient does have a known history of A. fib and is on blood thinning medication. She does follow with Dr. Estevez. The patient did have a pacemaker placed due to concern for bradycardia in the past. Patient denies any lower extremity swelling abdominal pain nausea vomiting. Patient states has been compliant with her medications, no recent changes or missed doses. Patient is vaccinated for Covid. EMS was concerned as when the patient was having chest pains the patient was having an increased pacemaker rate. It was noted to be a wide-complex paced rhythm in the 100s. ROS: See HPI for pertinent positives and negatives. A total of 10 systems were reviewed and otherwise negative. Past medical history: See below Surgical history: See below Social history: See below Physical Exam: GENERAL: NAD, wearing glasses, non-toxic. Hard of hearing. EYE EXAM: Normal conjunctiva. PERRL, no anisocoria and EOM's grossly intact w/o pain. OROPHARYNX: Moist mucus membranes. Grossly normal dentition. NECK: Supple, no nuchal rigidity, no adenopathy, non-tender. No signs of meningismus. LUNGS: Clear to auscultation. Normal chest wall mechanics. HEART: NSR, no MRG. ABDOMEN: Abdomen soft, non-tender, normo-active bowel sounds, no masses, no rebound or guarding. BACK: No CVA TTP. SKIN: No rashes and no bruising. UPPER EXTREMITIES: Upper extremities are grossly normal. LOWER EXTREMITIES: Grossly normal, no edema. NEURO EXAM: A&O x3, cranial nerves II-XII grossly intact, normal speech, moves all 4 extremities on command w/o issue. Differential diagnoses: Cardiac ischemia, aortic dissection, pulmonary embolism, pneumothorax, pneumonia, pericarditis, myocarditis, esophageal rupture, GERD, cholecystitis, pancreatitis, musculoskeletal, as well as other pathologies. Course: Patient was seen and evaluated the bedside. Full history physical exam was performed. EKG interpreted by me A paced, rate of 62, normal QRS, left axis deviation. Imaging Studies: See Below Cardiac monitoring: An order was placed for continuous cardiac monitoring. The monitor shows a rate of 65 with paced rhythm. MDM: Patient was seen due to concern for intermittent tachycardia and possible issue with pacemaker. Blood work is obtained. Patient has normal white count with very mild anemia at 11.4. Platelet count is unremarkable. Patient does have mild hypercalcemia. Troponin not detectable. Chest x-ray with trace bilateral pleural effusions. I did speak the on-call hospitalist Dr. Rodriguez. Patient was admitted to the medicine service. INR therapeutic. Patient was Covid positive. Past Med/Surg History Medical History Atrial fibrillation Chronic diastolic CHF (congestive heart failure) CKD (chronic kidney disease), stage III Diverticular disease of colon Dyslipidemia Fall Generalized weakness HTN (hypertension) HTN (hypertension) Hypothyroidism Pacemaker RLS (restless legs syndrome) Rosacea SVT (supraventricular tachycardia) Tachy-enid syndrome Surgical History History of carpal tunnel surgery History of cataract surgery History of colon resection History of hysterectomy History of tonsillectomy and adenoidectomy History of total right knee replacement S/P laparoscopic-assisted sigmoidectomy S/P ELISHA (total abdominal hysterectomy) Family History Other Heart disease Social History Smoking Status: Never smoker Second Hand Exposure: No; Hx Alcohol Use: No Hx Substance Use: No Preferred Language: Sinhala Communication Ability: Effective Visual Impairment: No Limitations Card Cutter Required: No Beliefs That Will Affect Care: None marital status: / Current Living Situation: Family Current Living Situation Comment: LIVES WITH DAUGHTER HERNANDO Other Information That Helps Us Care for You: No Feels Safe at Home: Yes Safety Concerns: Feels Safe At This Time Assistive Devices: Walker Allergies Allergies Allergy/AdvReac Type Severity Reaction Status Date / Time ciprofloxacin Allergy Intermediate RASH Verified 11/10/20 16:12 estrogens, conjugated Allergy Intermediate SEVERE Verified 11/10/20 16:12 RASH, PAINFUL FROM VAGINAL CREAM Sulfa (Sulfonamide Allergy Intermediate HIVES, RASH Verified 11/10/20 16:12 Antibiotics) adhesive Allergy Unknown ADHESIVE Verified 11/10/20 16:12 TAPE-SKIN IRRITATION tetanus toxoid, adsorbed Allergy Unknown UNKNOWN Verified 11/10/20 16:12 Home Meds Home Medications Medication Instructions Recorded Confirmed digoxin 125 mcg (0.125 mg) tablet 0.125 mg PO MOWEFR@0900 12/25/17 11/10/20 levothyroxine 50 mcg tablet 50 mcg PO DAILYBB 12/25/17 11/10/20 loperamide 2 mg tablet 2 mg PO DIRECTED PRN MDD 16 12/25/17 11/10/20 MG/24 HOURS nitroglycerin 0.4 mg sublingual 0.4 mg SUBLINGUAL DIRECTED PRN 12/25/17 11/10/20 tablet ondansetron 4 mg disintegrating 4 mg TRANSLINGUAL Q6 PRN 12/25/17 11/10/20 tablet betamethasone dipropionate 0.05 % 1 applic TOPICAL BID PRN 01/02/18 11/10/20 topical ointment diphenhydramine-zinc acetate 2 1 applic TOPICAL QID PRN 01/02/18 11/10/20 %-0.1 % topical cream acetaminophen 325 mg tablet 650 mg PO Q6H PRN 08/21/18 11/10/20 (Tylenol) amiodarone 200 mg tablet 200 mg PO DAILY 08/21/18 11/10/20 hydroxyzine HCl 25 mg tablet 25 mg PO Q6 PRN 08/21/18 11/10/20 cholecalciferol (vitamin D3) 50 50 mcg PO DAILY 05/31/19 11/10/20 mcg (2,000 unit) tablet (Vitamin D3) escitalopram oxalate 5 mg tablet 5 mg PO QDD 05/31/19 11/10/20 metoprolol succinate 25 mg 25 mg PO DAILY 05/31/19 11/10/20 tablet,extended release 24 hr ammonium lactate 12 % topical cream 1 applic TOPICAL BID PRN 05/23/20 11/10/20 levocetirizine 5 mg tablet 5 mg PO DAILY 05/23/20 11/10/20 ropinirole 0.5 mg tablet 0.5 mg PO QDD 08/10/20 11/10/20 gabapentin 100 mg capsule 100 - 200 mg PO HS 11/03/20 11/10/20 diclofenac sodium 1 % topical gel 2 g TOPICAL TID 11/10/20 11/10/20 rosuvastatin 10 mg tablet 10 mg PO DAILY 11/10/20 11/10/20 warfarin 1 mg tablet 1 mg PO SUTUTHFRSA@1600 11/10/20 11/10/20 warfarin 2 mg tablet 2 mg PO MOWE@1600 11/10/20 11/10/20 Previous Rx's Medication Instructions Recorded tramadol 50 mg tablet 25 mg PO Q8H PRN #10 tab 05/27/20 Results & Data (ED) Vital Signs Vital Signs - 24 hr 11/10/20 15:38 11/10/20 15:59 11/10/20 16:30 Temperature Temperature Source Pulse Rate 60 62 Pulse Rate from SpO2 Sensor 60 62 Pulse Rhythm Pulse Strength Respiratory Rate 20 18 Respiratory Effort / Characteristics Respiratory Depth Respiratory Pattern Blood Pressure 156/78 H 159/73 H Blood Pressure Mean 104 101 Blood Pressure Position Pulse Oximetry 97 96 96 Oxygen Delivery Method Room Air Sepsis Recent Fever Within 48 Hours Sepsis New/Unexplained Change in Mental Status Sepsis Action Taken by Nursing 11/10/20 16:40 11/10/20 17:00 11/10/20 17:30 Temperature 36.7 C Temperature Source Oral Pulse Rate 64 61 Pulse Rate from SpO2 Sensor 61 61 Pulse Rhythm Regular Pulse Strength Normal Respiratory Rate 16 20 19 Respiratory Effort / Characteristics Non-Labored Spontaneous Respiratory Depth Normal Respiratory Pattern Regular Blood Pressure 156/78 H 157/97 H 139/118 H Blood Pressure Mean 104 117 125 Blood Pressure Position Lying Pulse Oximetry 97 94 98 Oxygen Delivery Method Room Air Sepsis Recent Fever Within 48 Hours No Sepsis New/Unexplained Change in Mental Status N/A Sepsis Action Taken by Nursing No Action Required 11/10/20 18:00 11/10/20 18:30 Temperature Temperature Source Pulse Rate 60 60 Pulse Rate from SpO2 Sensor 60 60 Pulse Rhythm Pulse Strength Respiratory Rate 20 12 Respiratory Effort / Characteristics Respiratory Depth Respiratory Pattern Blood Pressure 163/67 H 156/77 H Blood Pressure Mean 99 103 Blood Pressure Position Pulse Oximetry 96 95 Oxygen Delivery Method Sepsis Recent Fever Within 48 Hours Sepsis New/Unexplained Change in Mental Status Sepsis Action Taken by Longterm Medications Current Medication List: was personally reviewed by me Laboratory Data Attestation: I reviewed the patient's lab results. Result diagrams: 11/10/20 16:13 11/10/20 16:13 Lab Results 11/10/20 11/10/20 11/10/20 Range/Units 16:13 16:13 16:13 WBC 8.20 (4.8-10.8) K/uL RBC 3.81 L (4.2-5.4) M/uL Hgb 11.4 L (12.0-16.0) g/dL Hct 35.6 L (37-47) % MCV 93.4 (80-100) fL MCH 29.9 (25-34) pg MCHC 32.0 (32-36) g/dL RDW Std Deviation 61.2 H (36.4-46.3) fL RDW Coeff of Mino 17.9 H (11.5-14.5) % Plt Count 323 (130-400) K/uL MPV 11.3 H (7.4-10.4) fL Immature Gran % (Auto) 0.1 % Neut % (Auto) 70.1 % Lymph % (Auto) 15.7 % Hand % (Auto) 11.3 % Eos % (Auto) 2.4 % Baso % (Auto) 0.4 % Neut # (Auto) 5.74 (1.4-6.5) K/uL Lymph # (Auto) 1.29 (1.2-3.4) K/uL Hand # (Auto) 0.93 H (0.11-0.59) K/uL Eos # (Auto) 0.20 (0-0.5) K/uL Baso # (Auto) 0.03 (0-0.2) K/uL Immature Gran # (Auto) 0.01 (0.00-0.02) K/uL PT (9.0-12.0) Seconds INR (0.9-1.1) APTT 39.9 H (21.0-31.0) Seconds PTT Ratio 1.5 Sodium 137 (136-145) mmol/L Potassium 4.3 (3.5-5.1) mmol/L Chloride 103 (98-107) mmol/L Carbon Dioxide 27 (21-32) mmol/L Anion Gap 7.0 (3-11) BUN 13 (7-18) mg/dl Creatinine 1.14 (0.6-1.2) mg/dl Est Cr Clr Drug Dosing Not Reportable Est GFR ( Amer) 49.4 ml/min Est GFR (Non-Af Amer) 42.6 ml/min BUN/Creatinine Ratio 11.6 (10-20) Glucose 83 (70-99) mg/dl Calcium 8.4 L (8.5-10.1) mg/dl Phosphorus 2.9 (2.5-4.9) mg/dl Magnesium 2.1 (1.8-2.4) mg/dl Total Bilirubin 0.5 (0.2-1) mg/dl AST 75 H (15-37) U/L ALT 68 (12-78) U/L Alkaline Phosphatase 222 H (45-117) U/L Troponin I < 0.015 (0-0.045) ng/ml Total Protein 7.1 (6.4-8.2) gm/dl Albumin 2.7 L (3.4-5.0) gm/dl Globulin 4.4 H (2.5-4.0) gm/dl Albumin/Globulin Ratio 0.6 L (0.9-2) Lipase 236 (73-393) U/L COVID-19 Eval Order SARS-CoV-2 (PCR) (Negative) 11/10/20 11/10/20 11/10/20 Range/Units 16:13 17:47 17:47 WBC (4.8-10.8) K/uL RBC (4.2-5.4) M/uL Hgb (12.0-16.0) g/dL Hct (37-47) % MCV (80-100) fL MCH (25-34) pg MCHC (32-36) g/dL RDW Std Deviation (36.4-46.3) fL RDW Coeff of Mino (11.5-14.5) % Plt Count (130-400) K/uL MPV (7.4-10.4) fL Immature Gran % (Auto) % Neut % (Auto) % Lymph % (Auto) % Hand % (Auto) % Eos % (Auto) % Baso % (Auto) % Neut # (Auto) (1.4-6.5) K/uL Lymph # (Auto) (1.2-3.4) K/uL Hand # (Auto) (0.11-0.59) K/uL Eos # (Auto) (0-0.5) K/uL Baso # (Auto) (0-0.2) K/uL Immature Gran # (Auto) (0.00-0.02) K/uL PT 21.0 H (9.0-12.0) Seconds INR 2.2 H (0.9-1.1) APTT (21.0-31.0) Seconds PTT Ratio Sodium (136-145) mmol/L Potassium (3.5-5.1) mmol/L Chloride (98-107) mmol/L Carbon Dioxide (21-32) mmol/L Anion Gap (3-11) BUN (7-18) mg/dl Creatinine (0.6-1.2) mg/dl Est Cr Clr Drug Dosing Est GFR ( Amer) ml/min Est GFR (Non-Af Amer) ml/min BUN/Creatinine Ratio (10-20) Glucose (70-99) mg/dl Calcium (8.5-10.1) mg/dl Phosphorus (2.5-4.9) mg/dl Magnesium (1.8-2.4) mg/dl Total Bilirubin (0.2-1) mg/dl AST (15-37) U/L ALT (12-78) U/L Alkaline Phosphatase (45-117) U/L Troponin I (0-0.045) ng/ml Total Protein (6.4-8.2) gm/dl Albumin (3.4-5.0) gm/dl Globulin (2.5-4.0) gm/dl Albumin/Globulin Ratio (0.9-2) Lipase (73-393) U/L COVID-19 Eval Order Covid19 at [facility] SARS-CoV-2 (PCR) POSITIVE A* (Negative) Administered Medications Acetaminophen (Acetaminophen 500 Mg Tab) 1,000 mg PO Q8H JAKI Stop: 12/10/20 21:59 Last Admin: 11/10/20 23:05 Dose: 1,000 mg Documented by: [id number] Gabapentin (Gabapentin 100 Mg Cap) 100 mg PO HS JAKI Stop: 12/10/20 21:06 Last Admin: 11/10/20 23:01 Dose: 100 mg Documented by: [id number] Tramadol HCl (Tramadol Hcl 50 Mg Tablet) 50 mg PO Q8H JAKI Stop: 12/10/20 21:59 Last Admin: 11/10/20 23:05 Dose: 50 mg Documented by: [id number] Trolamine Salicylate (Trolamine Salicylate 10% Crm 255 Appln/85 Gm Tube) 1 appln EXT TID JAKI Stop: 12/10/20 21:06 Last Admin: 11/10/20 23:01 Dose: 1 appln Documented by: [id number] Discontinued Medications Calcium Gluconate () 1,000 mg in 60 mls @ 240 mls/hr IV NOW STA Stop: 11/10/20 17:28 Last Infusion: 11/10/20 18:16 Dose: 0 mls/hr Documented by: [id number] Admin: 11/10/20 17:50 Dose: 240 mls/hr Documented by: [id number] Imaging Data Radiologist's Impression: Chest X-Ray 11/10/20 16:14 XR chest 1V portable HISTORY: Atypical Chest Pain COMPARISON: This 11/03/2020. FINDINGS: Slightly rotated study. No pneumothorax. The cardiac silhouette remains mildly enlarged. No new focal lung consolidations to suggest pneumonia. No evidence for pulmonary edema. Trace bilateral pleural effusions, unchanged. There is left-sided dual-chamber pacemaker. IMPRESSION: Trace bilateral pleural effusions, unchanged. Otherwise, no acute process within the chest. ACT 112: Negative or not required by law. Electronically signed by: Benson Self M.D. 11/10/2020 4:57 PM Discharge Plan Visit Data Chief Complaint: Cardiac Assessment Stated Complaint: CARDIAC ASSESSMENT ED Provider: Jean Carlos Palumbo Discharge Problem: Chest pain, CKD (chronic kidney disease), stage III, COVID-19 Patient Disposition: Admitted As Inpatient Discharge Instructions Interventions: ED Discharge Assessment Last Done: 11/10/20 20:18
[2020-11-10 16:29] LABS: Basophils # (auto) 0.03 K/uL (0-0.2); Basophils % (auto) 0.4 %; Eosinophils % (auto) 2.4 %; Hematocrit (blood only) 35.6 % (37-47); Hemoglobin 11.4 g/dL (12.0-16.0); Immature Granulocytes # (auto) 0.01 K/uL (0.00-0.02); Immature Granulocytes % (auto) 0.1 %; Lymphocytes # (auto) 1.29 K/uL (1.2-3.4); Lymphocytes % (auto) 15.7 %; Mean Corpuscular Hemoglobin 29.9 pg (25-34); Mean Corpuscular Volume 93.4 fL (80-100); Mean Platelet Volume 11.3 fL (7.4-10.4); Monocytes # (auto) 0.93 K/uL (0.11-0.59); Monocytes % (auto) 11.3 %; Neutrophils # (auto) 5.74 K/uL (1.4-6.5); Neutrophils % (auto) 70.1 %; Platelet Count 323 K/uL (130-400); RDW Coefficient of Variation 17.9 % (11.5-14.5); RDW Standard Deviation 61.2 fL (36.4-46.3); Red Blood Count 3.81 M/uL (4.2-5.4)
[2020-11-10 16:42] LABS: Partial Thromboplastin Ratio 1.5; Partial Thromboplastin Time 39.9 Seconds (21.0-31.0)
[2020-11-10 16:43] LABS: Alanine Aminotransferase 68 U/L (12-78); Albumin Level 2.7 gm/dl (3.4-5.0); Aspartate Aminotransferase 75 U/L (15-37); BUN Creatinine Ratio 11.6 (10-20); Blood Urea Nitrogen 13 mg/dl (7-18); Calcium 8.4 mg/dl (8.5-10.1); Carbon Dioxide 27 mmol/L (21-32); Chloride 103 mmol/L (98-107); Est GFR (African American) 49.4 ml/min; Est GFR (Non-African American) 42.6 ml/min; Glucose 83 mg/dl (70-99); Lipase 236 U/L (73-393); Magnesium 2.1 mg/dl (1.8-2.4); Potassium 4.3 mmol/L (3.5-5.1); Sodium 137 mmol/L (136-145)
[2020-11-10 16:49] LABS: Albumin Globulin Ratio 0.6 (0.9-2); Alkaline Phosphatase 222 U/L (45-117); Bilirubin,Total 0.5 mg/dl (0.2-1); Globulin 4.4 gm/dl (2.5-4.0); Phosphorus 2.9 mg/dl (2.5-4.9); Total Protein 7.1 gm/dl (6.4-8.2); Troponin I < 0.015 ng/ml (0-0.045)
--- NOTE | 2020-11-10 16:58 | XRay Report ---
XR chest 1V portable HISTORY: Atypical Chest Pain COMPARISON: This 11/03/2020. FINDINGS: Slightly rotated study. No pneumothorax. The cardiac silhouette remains mildly enlarged. No new focal lung consolidations to suggest pneumonia. No evidence for pulmonary edema. Trace bilateral pleural effusions, unchanged. There is left-sided dual-chamber pacemaker. IMPRESSION: Trace bilateral pleural effusions, unchanged. Otherwise, no acute process within the chest. ACT 112: Negative or not required by law. Electronically signed by: Benson Self M.D. 11/10/2020 4:57 PM
[2020-11-10] MEDS ORDERED: CALCIUM GLUCONATE 1,000 MG/60 ML BAG IV STA (17:14)
--- NOTE | 2020-11-10 18:47 | History & Physical Report ---
Date of Service November 10, 2020 Assessment & Plan (1) Anterior chest wall pain: Plan: Recent chest wall injury with syncope prior to last admission. Full work-up and investigation done during last admission and patient sent home, however, chest wall pain was not well managed and she returns for treatment of this. Plan for scheduled Tylenol with tramadol, given together punctuated by additional tramadol as needed. IV morphine available if needed. Apply Myoflex cream 3 times daily and utilize thermal pad. Encourage mobilization as tolerated. Intercostal space is expected to be painful for quite some time. Ideally, would get her on a regimen she could comfortable on at home. Functional status is borderline and during recent admissions SNF was recommended, however, patient and family preferred to have patient at home. Baseline ambulates with walker with minimal assistance and notably has had recent falls in the last few months. She denies any falls since last hospital discharge. It is also possible that her increased activity helping daughter around the house yesterday may have flared the chest wall pain more. Troponin negative and EKG unchanged, ACS not present. Will monitor on telemetry overnight. (2) Atrial fibrillation: Plan: Chronic, rate controlled. Pacemaker in place and rhythm is paced on EKG. Pacemaker interrogation is pending. Continue amiodarone, digoxin, and warfarin. INR currently therapeutic at 2.2 (3) HTN (hypertension): Plan: Elevated secondary to pain, continue aggressive pain control regimen. (4) Hypothyroidism: Plan: Chronic, stable, continue levothyroxine at home dose (5) CKD (chronic kidney disease), stage III: Plan: Chronic, at baseline. Avoid nephrotoxic substances and renally dose meds as needed. (6) DVT prophylaxis: Plan: Warfarin, INR therapeutic Full code as discussed with patient on admission Disposition-monitor on telemetry overnight. Aggressive pain management regimen in place. PT/OT to re assess functional status. Plan was discussed with daughter Jason by phone. 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 In September, she was admitted for treatment of Covid without pneumonia or hypoxia but with significant weakness. She subsequently went home and had a syncopal event resulting in a chest wall injury after falling into a sink. She was admitted from 11/03 and discharged on 11/06. She was seen by cardiology during that time. She was continued on anticoagulation with warfarin. Although she was not fully chest pain-free, she was stable for discharge and sent home. Per daughter who is her cone cleaner and lives with her, mom was utilizing as needed Tylenol 325 to 650 mg and tramadol 25 mg 2-3 times a day. The patient reported the pain to be intolerable however, especially since yesterday. This resulted in a call to EMS to bring her here today for intractable pain. The patient is significantly tender wincing in pain with any movement or repositioning. Her chest pain is described as sharp, intermittent, and she reports not being able to sit up straight secondary to the severe pain. There is no radiation of the pain but it extends from midsternal area to left anterior chest wall. A CTA of the chest was performed during the last admission revealing no evidence of rib fracture or sternal fracture. She is exquisitely tender to palpation of the chest wall and there is no overt rash or bruising present. There is no swelling outside of a left anterior wall pacemaker under the skin. She has pain even with upper arm movement. She has a history of atrial fibrillation and is on warfarin. The patient and her daughter report compliance with her medications with no recent changes or missed doses. There was concern by EMS that the patient was overpacing with the rhythm was described as wide-complex and paced in the low 100s. On arrival to the ER, EKG reveals an atrial paced rhythm with a normal rate. Pacemaker currently being interrogated by device manufacture. Of note, daughter reports the patient was doing more activity yesterday including walking more and even helping the daughter fold clothes. The patient is fatigued and reports not sleeping overnight. She reports having a severe headache. Review of systems is otherwise negative. Allergies Allergy/AdvReac Type Severity Reaction Status Date / Time ciprofloxacin Allergy Intermediate RASH Verified 11/10/20 16:12 estrogens, conjugated Allergy Intermediate SEVERE Verified 11/10/20 16:12 RASH, PAINFUL FROM VAGINAL CREAM Sulfa (Sulfonamide Allergy Intermediate HIVES, RASH Verified 11/10/20 16:12 Antibiotics) adhesive Allergy Unknown ADHESIVE Verified 11/10/20 16:12 TAPE-SKIN IRRITATION tetanus toxoid, adsorbed Allergy Unknown UNKNOWN Verified 11/10/20 16:12 Home Medications Medication Instructions Recorded Confirmed Type digoxin 125 mcg (0.125 mg) tablet 0.125 mg PO MOWEFR@0900 12/25/17 11/10/20 History levothyroxine 50 mcg tablet 50 mcg PO DAILYBB 12/25/17 11/10/20 History loperamide 2 mg tablet 2 mg PO DIRECTED PRN MDD 16 12/25/17 11/10/20 History MG/24 HOURS nitroglycerin 0.4 mg sublingual 0.4 mg SUBLINGUAL DIRECTED PRN 12/25/17 11/10/20 History tablet ondansetron 4 mg disintegrating 4 mg TRANSLINGUAL Q6 PRN 12/25/17 11/10/20 History tablet betamethasone dipropionate 0.05 % 1 applic TOPICAL BID PRN 01/02/18 11/10/20 History topical ointment diphenhydramine-zinc acetate 2 1 applic TOPICAL QID PRN 01/02/18 11/10/20 History %-0.1 % topical cream acetaminophen 325 mg tablet 650 mg PO Q6H PRN 08/21/18 11/10/20 History (Tylenol) amiodarone 200 mg tablet 200 mg PO DAILY 08/21/18 11/10/20 History hydroxyzine HCl 25 mg tablet 25 mg PO Q6 PRN 08/21/18 11/10/20 History cholecalciferol (vitamin D3) 50 50 mcg PO DAILY 05/31/19 11/10/20 History mcg (2,000 unit) tablet (Vitamin D3) escitalopram oxalate 5 mg tablet 5 mg PO QDD 05/31/19 11/10/20 History metoprolol succinate 25 mg 25 mg PO DAILY 05/31/19 11/10/20 History tablet,extended release 24 hr ammonium lactate 12 % topical cream 1 applic TOPICAL BID PRN 05/23/20 11/10/20 History levocetirizine 5 mg tablet 5 mg PO DAILY 05/23/20 11/10/20 History tramadol 50 mg tablet 25 mg PO Q8H PRN #10 tab 05/27/20 11/10/20 Rx ropinirole 0.5 mg tablet 0.5 mg PO QDD 08/10/20 11/10/20 History gabapentin 100 mg capsule 100 - 200 mg PO HS 11/03/20 11/10/20 History diclofenac sodium 1 % topical gel 2 g TOPICAL TID 11/10/20 11/10/20 History rosuvastatin 10 mg tablet 10 mg PO DAILY 11/10/20 11/10/20 History warfarin 1 mg tablet 1 mg PO SUTUTHFRSA@1600 11/10/20 11/10/20 History warfarin 2 mg tablet 2 mg PO MOWE@1600 11/10/20 11/10/20 History Past Med/Surg History Medical History Atrial fibrillation Chronic diastolic CHF (congestive heart failure) CKD (chronic kidney disease), stage III Diverticular disease of colon Dyslipidemia Fall Generalized weakness HTN (hypertension) HTN (hypertension) Hypothyroidism Pacemaker RLS (restless legs syndrome) Rosacea SVT (supraventricular tachycardia) Tachy-enid syndrome Surgical History History of carpal tunnel surgery History of cataract surgery History of colon resection History of hysterectomy History of tonsillectomy and adenoidectomy History of total right knee replacement S/P laparoscopic-assisted sigmoidectomy S/P ELISHA (total abdominal hysterectomy) Family History Other Heart disease Social History Smoking Status: Never smoker Second Hand Exposure: No; Hx Alcohol Use: No Hx Substance Use: No Preferred Language: Mongolian Communication Ability: Effective Visual Impairment: No Limitations Machine Hoop Maker Required: No Beliefs That Will Affect Care: None marital status: / Current Living Situation: Family Current Living Situation Comment: LIVES WITH DAUGHTER JASON Feels Safe at Home: Yes Assistive Devices: Walker Review of Systems Review of Systems: At least ten systems were reviewed and negative except as indicated in HPI above. Physical Exam Physical Exam: CONSTITUTIONAL: WNWD, vitals as above, generally ill- appearing, NAD EYES: PERRL, irregularity to right pupil noted, normal conjunctivae, no scleral icterus ENT: external ear and nose normal, oropharynx clear NECK: trachea midline RESPIRATORY: clear to auscultation bilaterally, no crackles, rales or wheezes, normal respiratory effort CARDIOVASCULAR: regular rate and rhythm, S1 and 2 heard without murmurs, gallops or rubs, no JVD, no peripheral edema CHEST: +pacemaker to left anterior chest. Slight raised areas that are pink where previous cardiac leads were placed. GASTROINTESTINAL: soft, nontender, ND, no guarding. MUSCULOSKELETAL: strength 5/5 throughout, head is normocephalic and atraumatic, severe chest wall TTP across parasternal borders and left intercostals SKIN: warm and dry, small papular rash on upper mid back. NEUROLOGIC: CN 2-12 grossly intact, no sensory deficit, normal cognition, normal speech, no tremor PSYCHIATRIC: alert cooperative and oriented to person, place and time. Results & Data Results & Data ([facility]) Vital Signs (Past 12 Hours) Vital Signs Temp Pulse Resp BP Pulse Ox 11/10/20 18:00 60 20 163/67 H 96 11/10/20 17:30 19 139/118 H 98 11/10/20 17:00 61 20 157/97 H 94 11/10/20 16:40 36.7 C 64 16 156/78 H 97 11/10/20 16:30 62 18 159/73 H 96 11/10/20 15:59 60 20 156/78 H 96 11/10/20 15:38 97 Laboratory Results Short CBC 11/10/20 Range/Units 16:13 WBC 8.20 (4.8-10.8) K/uL Hgb 11.4 L (12.0-16.0) g/dL Hct 35.6 L (37-47) % Plt Count 323 (130-400) K/uL BMP 11/10/20 16:13 Sodium 137 Potassium 4.3 Chloride 103 Carbon Dioxide 27 BUN 13 Creatinine 1.14 Glucose 83 Calcium 8.4 L Cardiac Enzymes 11/10/20 Range/Units 16:13 Troponin I < 0.015 (0-0.045) ng/ml Liver Function 11/10/20 Range/Units 16:13 Total Bilirubin 0.5 (0.2-1) mg/dl AST 75 H (15-37) U/L ALT 68 (12-78) U/L Alkaline Phosphatase 222 H (45-117) U/L Albumin 2.7 L (3.4-5.0) gm/dl Medications Administered XR chest 1V portable HISTORY: Atypical Chest Pain COMPARISON: This 11/03/2020. FINDINGS: Slightly rotated study. No pneumothorax. The cardiac silhouette remains mildly enlarged. No new focal lung consolidations to suggest pneumonia. No evidence for pulmonary edema. Trace bilateral pleural effusions, unchanged. There is left-sided dual-chamber pacemaker. IMPRESSION: Trace bilateral pleural effusions, unchanged. Otherwise, no acute process within the chest. Code Status & VTE Plan VTE Prophylaxis Plan VTE Prophylaxis will be ordered: Yes (1) Atrial fibrillation Atrial fibrillation type: paroxysmal Qualified Code(s): I48.0 - Paroxysmal atrial fibrillation (2) HTN (hypertension) Hypertension type: primary hypertension Qualified Code(s): I10 - Essential (primary) hypertension (3) Hypothyroidism Hypothyroidism type: unspecified Qualified Code(s): E03.9 - Hypothyroidism, unspecified (4) CKD (chronic kidney disease), stage III Chronic kidney disease stage 3 subtype: unspecified whether 3a or 3b Qualified Code(s): N18.30 - Chronic kidney disease, stage 3 unspecified
[2020-11-10 19:06] LABS: INR 2.2 (0.9-1.1)
[2020-11-10] MEDS ORDERED: traMADol HCL 50 MG TABLET PO PRN (21:07)
[2020-11-10] MEDS ORDERED: MoRPHine SULFATE 2 MG/ML CARP IV PRN (21:07)
[2020-11-10] MEDS ORDERED: NITROGLYCERIN SL 0.4 MG/TAB TAB SL PRN (21:07)
[2020-11-10] MEDS: GABAPENTIN 100 MG CAP PO SCH (23:01)
[2020-11-10] MEDS: TROLAMINE SALICYLATE 10% CRM 255 APPLN/85 GM TUBE EXT SCH (23:01)
[2020-11-10] MEDS: traMADol HCL 50 MG TABLET PO SCH (23:05)
[2020-11-10] MEDS: ACETAMINOPHEN 500 MG TAB PO SCH (23:05)
[2020-11-11] MEDS: ACETAMINOPHEN 500 MG TAB PO SCH ×3 (05:51→21:15)
[2020-11-11] MEDS: traMADol HCL 50 MG TABLET PO SCH ×3 (05:51→21:15)
[2020-11-11] MEDS: LEVOTHYROXINE SODIUM 50 MCG TABLET PO SCH (05:51)
[2020-11-11 07:54] LABS: Hematocrit (blood only) 36.3 % (37-47); Hemoglobin 11.6 g/dL (12.0-16.0); Mean Corpuscular Hemoglobin 29.6 pg (25-34); Mean Corpuscular Volume 92.6 fL (80-100); Mean Platelet Volume 11.4 fL (7.4-10.4); Platelet Count 378 K/uL (130-400); RDW Coefficient of Variation 17.6 % (11.5-14.5); Red Blood Count 3.92 M/uL (4.2-5.4); White Blood Count 9.66 K/uL (4.8-10.8)
[2020-11-11 08:23] LABS: INR 1.8 (0.9-1.1); Prothrombin Time 17.6 Seconds (9.0-12.0)
[2020-11-11 08:31] LABS: BUN Creatinine Ratio 10.6 (10-20); Calcium 8.6 mg/dl (8.5-10.1); Creatinine Clr Calc Pharmacy 25.6 ml/min; Est GFR (African American) 47.4 ml/min; Est GFR (Non-African American) 40.9 ml/min
[2020-11-11] MEDS: CETIRIZINE HCL 10 MG TABLET PO SCH (08:38)
[2020-11-11] MEDS: AMIODARONE 200 MG TAB PO SCH (08:38)
[2020-11-11] MEDS: ROSUVASTATIN CALCIUM 10 MG TAB PO SCH (08:39)
[2020-11-11] MEDS: METOPROLOL SUCC 25MG EXT REL TAB PO SCH (08:39)
[2020-11-11] MEDS: TROLAMINE SALICYLATE 10% CRM 255 APPLN/85 GM TUBE EXT SCH ×3 (08:40→21:14)
--- NOTE | 2020-11-11 15:24 | Electrocardiogram Report ---
Test Reason : Blood Pressure : / mmHG Vent. Rate : 062 BPM Atrial Rate : 208 BPM P-R Int : 268 ms QRS Dur : 096 ms QT Int : 428 ms P-R-T Axes : 000 -34 067 degrees QTc Int : 434 ms Atrial-paced rhythm with prolonged AV conduction Left axis deviation Abnormal ECG When compared with ECG of 10-NOV-2020 15:56, (unconfirmed) No significant change was found Confirmed by Jaison Monet ([id number]) on 11/11/2020 3:23:53 PM Referred By: REFERRED SELF Confirmed By:Jaison Monet
--- NOTE | 2020-11-11 16:07 | Hospitalist Progress Note ---
Date of Service November 11, 2020 Assessment & Plan (1) Anterior chest wall pain: Plan: Recent chest wall injury with syncope prior to last admission. Full work-up and investigation done during last admission and patient sent home, however, chest wall pain was not well managed and she returns for treatment of this. Patient reports central chest pain since her fall. Chest tenderness appreciated on exam. Troponin is not concerning. Pacemaker interrogation is questionable. Could not find record in the electronic/paper chart. Pacemaker interrogation has been reordered. Plan for scheduled Tylenol with tramadol, given together punctuated by additional tramadol as needed. IV morphine available if needed. Apply Myoflex cream 3 times daily and utilize thermal pad. Encourage mobilization as tolerated. Baseline ambulates with walker with minimal assistance and notably has had recent falls in the last few months. (2) Atrial fibrillation: Plan: Chronic, rate controlled. Pacemaker in place and rhythm is paced on EKG. Pacemaker interrogation has been ordered. Continue amiodarone, digoxin, and warfarin. INR currently therapeutic at 2.2 (3) HTN (hypertension): Plan: Elevated secondary to pain, continue aggressive pain control regimen. (4) Hypothyroidism: Plan: Chronic, stable, continue levothyroxine at home dose (5) CKD (chronic kidney disease), stage III: Plan: Chronic, at baseline. Avoid nephrotoxic substances and renally dose meds as needed. (6) DVT prophylaxis: Plan: Warfarin, INR therapeutic Full code as discussed with patient on admission Disposition-monitor on telemetry overnight. Aggressive pain management regimen in place. PT/OT to re assess functional status. Admission and Anticipated Discharge Date Admission Date: November 10, 2020 Subjective Patient is resting comfortably. Does report central chest pain that is worse with breathing. Denies feeling short of breath. Denies any dizziness or palpitations. Does have minimal cough. Denies any nausea or vomiting. Rest of the review of systems negative. Review of Systems Review of Systems: All systems reviewed & are unremarkable except as noted in HPI & below Physical Exam Physical Exam: General: Does not appear to be in any distress HENT: NCAT, MMM, EOMI Eyes: PERRLA Neck: Supple, normal range of motion CVS: normal rate and rhythm Resp: b/l good breath sounds, central chest tenderness appreciated Abdomen: Soft, ND/NT, +BS Extremities: No c/c/e Neuro: face symmetric, no focal deficit appreciated Skin: warm and dry, no rashes/lesions/errythema Results & Data Results & Data ([facility]) Vital Signs (Past 12 Hours) Vital Signs Temp Pulse Resp BP Pulse Ox 11/11/20 11:02 36.5 C 65 20 99/61 L 97 11/11/20 08:43 103/64 11/11/20 08:22 36.6 C 70 18 99/59 L 97 11/11/20 05:14 36.3 C L 62 20 164/78 H 95 (1) Atrial fibrillation Atrial fibrillation type: paroxysmal Qualified Code(s): I48.0 - Paroxysmal atrial fibrillation (2) Hypothyroidism Hypothyroidism type: unspecified Qualified Code(s): E03.9 - Hypothyroidism, unspecified (3) HTN (hypertension) Hypertension type: primary hypertension Qualified Code(s): I10 - Essential (primary) hypertension
[2020-11-11] MEDS: WARFARIN SOD 2 MG TAB PO SCH (17:04)
[2020-11-11] MEDS: rOPINIRole HCL 0.25 MG TABLET PO SCH (17:04)
[2020-11-11] MEDS: ESCITALOPRAM OXALATE 10 MG TAB PO SCH (17:04)
[2020-11-11] MEDS: DIGOXIN 0.125 MG TAB PO SCH (17:05)
[2020-11-11] MEDS: GABAPENTIN 100 MG CAP PO SCH (21:14)
[2020-11-12] MEDS: ACETAMINOPHEN 500 MG TAB PO SCH ×3 (05:19→21:01)
[2020-11-12] MEDS: LEVOTHYROXINE SODIUM 50 MCG TABLET PO SCH (05:19)
[2020-11-12] MEDS: traMADol HCL 50 MG TABLET PO SCH ×3 (05:20→21:01)
[2020-11-12] MEDS ORDERED: LORATADINE 10 MG TAB PO ONE (05:45)
[2020-11-12 06:35] LABS: INR 1.9 (0.9-1.1); Prothrombin Time 18.6 Seconds (9.0-12.0)
[2020-11-12] MEDS: ROSUVASTATIN CALCIUM 10 MG TAB PO SCH (07:17)
[2020-11-12] MEDS: TROLAMINE SALICYLATE 10% CRM 255 APPLN/85 GM TUBE EXT SCH ×3 (07:17→21:01)
[2020-11-12] MEDS: METOPROLOL SUCC 25MG EXT REL TAB PO SCH (07:17)
[2020-11-12] MEDS: CETIRIZINE HCL 10 MG TABLET PO SCH (07:17)
[2020-11-12] MEDS: AMIODARONE 200 MG TAB PO SCH (07:18)
[2020-11-12] MEDS: SODIUM CHLORIDE 0.9% 1000ML 1,000 ML IV SCH (13:41)
--- NOTE | 2020-11-12 14:50 | Hospitalist Progress Note ---
Date of Service November 12, 2020 Assessment & Plan (1) Anterior chest wall pain: Plan: Recent chest wall injury with syncope prior to last admission. Full work-up and investigation done during last admission and patient sent home, however, chest wall pain was not well managed and she returns for treatment of this. Patient reports central chest pain since her fall. Chest tenderness appreciated on exam. Troponin is not concerning. Pacemaker interrogation is questionable. Could not find record in the electronic/paper chart. Pacemaker interrogation has been reordered. Plan for scheduled Tylenol with tramadol, given together punctuated by additional tramadol as needed. IV morphine available if needed. Apply Myoflex cream 3 times daily and utilize thermal pad. Encourage mobilization as tolerated. Baseline ambulates with walker with minimal assistance and notably has had recent falls in the last few months. Orthostatic hypotension: Patient found to have positive orthostatic pressures today. Started patient on maintenance IV fluids. Recheck pressures tomorrow again. Of note patient was discharged with a Pizano catheter during last admission which was to be removed post discharge. We will have the Pizano catheter removed today. (2) Atrial fibrillation: Plan: Chronic, rate controlled. Pacemaker in place and rhythm is paced on EKG. Pacemaker interrogation has been ordered. Continue amiodarone, digoxin, and warfarin. INR currently therapeutic at 1.9 (3) HTN (hypertension): Plan: Elevated secondary to pain, continue aggressive pain control regimen. (4) Hypothyroidism: Plan: Chronic, stable, continue levothyroxine at home dose (5) CKD (chronic kidney disease), stage III: Plan: Chronic, at baseline. Avoid nephrotoxic substances and renally dose meds as needed. (6) DVT prophylaxis: Plan: Warfarin, INR therapeutic Full code as discussed with patient on admission Disposition-monitor on telemetry overnight. Aggressive pain management regimen in place. PT/OT recommended home. Admission and Anticipated Discharge Date Admission Date: November 10, 2020 Subjective Patient is doing okay. Reports her chest pain is better. Denies any shortness of breath. Does report minimal cough. Remains on room air. Review of Systems Review of Systems: All systems reviewed & are unremarkable except as noted in HPI & below Physical Exam Physical Exam: General: Does not appear to be in any distress HENT: NCAT, MMM, EOMI Eyes: PERRLA Neck: Supple, normal range of motion CVS: normal rate and rhythm Resp: b/l good breath sounds, central chest tenderness appreciated Abdomen: Soft, ND/NT, +BS Extremities: No c/c/e Neuro: face symmetric, no focal deficit appreciated Skin: warm and dry, no rashes/lesions/errythema Pizano catheter in place with clear urine. Results & Data Results & Data ([facility]) Vital Signs (Past 12 Hours) Vital Signs Temp Pulse Pulse Resp BP Pulse Ox 11/12/20 11:07 36.3 C L 62 16 131/61 95 11/12/20 09:54 60 11/12/20 07:43 36.5 C 60 16 159/70 H 96 11/12/20 07:16 36.2 C L 63 16 145/75 H 96 11/12/20 04:12 36.6 C 66 16 158/78 H 95 (1) Atrial fibrillation Atrial fibrillation type: paroxysmal Qualified Code(s): I48.0 - Paroxysmal atrial fibrillation (2) HTN (hypertension) Hypertension type: primary hypertension Qualified Code(s): I10 - Essential (primary) hypertension (3) Hypothyroidism Hypothyroidism type: unspecified Qualified Code(s): E03.9 - Hypothyroidism, unspecified
--- NOTE | 2020-11-12 16:14 | Electrocardiogram Report ---
Test Reason : Blood Pressure : / mmHG Vent. Rate : 061 BPM Atrial Rate : 057 BPM P-R Int : 282 ms QRS Dur : 096 ms QT Int : 432 ms P-R-T Axes : 000 -43 055 degrees QTc Int : 434 ms Atrial-paced rhythm with prolonged AV conduction Left axis deviation Nonspecific T wave abnormality Abnormal ECG When compared with ECG of 10-NOV-2020 15:56, Nonspecific T wave abnormality now evident in Anterior leads Confirmed by Jaison Monet ([id number]) on 11/12/2020 4:14:18 PM Referred By: REFERRED SELF Confirmed By:Jaison Monet
--- NOTE | 2020-11-12 16:26 | Electrocardiogram Report ---
Test Reason : Blood Pressure : / mmHG Vent. Rate : 061 BPM Atrial Rate : 059 BPM P-R Int : 284 ms QRS Dur : 096 ms QT Int : 422 ms P-R-T Axes : 000 -41 048 degrees QTc Int : 424 ms Atrial-paced rhythm with prolonged AV conduction Left axis deviation Poor R wave progression, consider anterior AL vs. lead placement vs. LVH Abnormal ECG When compared with ECG of 11-NOV-2020 05:56, (unconfirmed) No significant change was found Confirmed by Jaison Monet ([id number]) on 11/12/2020 4:25:56 PM Referred By: REFERRED SELF Confirmed By:Jaison Monet
[2020-11-12] MEDS: WARFARIN SOD 1 MG TAB PO SCH (17:09)
[2020-11-12] MEDS: rOPINIRole HCL 0.25 MG TABLET PO SCH (17:09)
[2020-11-12] MEDS: ESCITALOPRAM OXALATE 10 MG TAB PO SCH (17:09)
[2020-11-12] MEDS: GABAPENTIN 100 MG CAP PO SCH (21:01)
[2020-11-13] MEDS: SODIUM CHLORIDE 0.9% 1000ML 1,000 ML IV SCH ×2 (01:42→14:30)
[2020-11-13] MEDS: ACETAMINOPHEN 500 MG TAB PO SCH ×4 (06:20→22:13)
[2020-11-13] MEDS: traMADol HCL 50 MG TABLET PO SCH (06:21)
[2020-11-13] MEDS: LEVOTHYROXINE SODIUM 50 MCG TABLET PO SCH (06:21)
[2020-11-13] MEDS: CETIRIZINE HCL 10 MG TABLET PO SCH (08:39)
[2020-11-13] MEDS: ROSUVASTATIN CALCIUM 10 MG TAB PO SCH (08:39)
[2020-11-13] MEDS: AMIODARONE 200 MG TAB PO SCH (08:39)
[2020-11-13] MEDS: METOPROLOL SUCC 25MG EXT REL TAB PO SCH (08:39)
[2020-11-13] MEDS: TROLAMINE SALICYLATE 10% CRM 255 APPLN/85 GM TUBE EXT SCH ×3 (08:40→20:40)
[2020-11-13 08:42] LABS: Hematocrit (blood only) 35.2 % (37-47); Hemoglobin 11.2 g/dL (12.0-16.0); Mean Corpuscular Hemoglobin 29.6 pg (25-34); Mean Corpuscular Hgb Conc 31.8 g/dL (32-36); Mean Corpuscular Volume 92.9 fL (80-100); Platelet Count 357 K/uL (130-400); RDW Coefficient of Variation 17.4 % (11.5-14.5); RDW Standard Deviation 59.4 fL (36.4-46.3); Red Blood Count 3.79 M/uL (4.2-5.4); White Blood Count 11.36 K/uL (4.8-10.8)
[2020-11-13 08:55] LABS: INR 2.7 (0.9-1.1); Prothrombin Time 25.3 Seconds (9.0-12.0)
[2020-11-13 09:14] LABS: BUN Creatinine Ratio 10.9 (10-20); Calcium 8.7 mg/dl (8.5-10.1); Creatinine Clr Calc Pharmacy 24.9 ml/min; Est GFR (African American) 45.9 ml/min; Est GFR (Non-African American) 39.6 ml/min; Magnesium 2.3 mg/dl (1.8-2.4); Phosphorus 2.8 mg/dl (2.5-4.9); Potassium 4.4 mmol/L (3.5-5.1)
--- NOTE | 2020-11-13 09:28 | Hospitalist Progress Note ---
Date of Service November 13, 2020 Assessment & Plan (1) Anterior chest wall pain: Plan: S/P Chest wall injury with syncope prior to previous admission. Unfortunately pt discharged to home and was re admitted due to uncontrolled pain. Chest wall remains tender, but improving. Cardiac work up not concerning. pacemaker interrogation report WNL. Continue scheduled APAP. Will change tramadol to PRN and see how she does. IV morphine available if needed; however pt has not yet used this. Apply Myoflex cream 3 times daily and utilize thermal pad. Encourage mobilization as tolerated. Encourage incentive spirometry Baseline ambulates with walker with minimal assistance and notably has had recent falls in the last few months. Ambulating in room with assist and walker x 1 PT/OT on board - pt is to d/c to home Orthostatic hypotension Orthostatic vitals yesterday revealed blood pressure lying 148/70 pulse 63, sitting 129/66 and pulse 62, standing BP 95/58, pulse 63 patient received maintenance fluids - will repeat may be related to narcotics Urinary retention during recent hosp stay pt had urinary retention felt 2/2 to possible anatomy and stricture peripheral consult with urology was made recommending moody cath placement this was removed yesterday nurse contacted for bladder scans she was to see urology in office today for TOV - will consult them formally here (2) Atrial fibrillation: Plan: Chronic, rate controlled. Pacemaker in place and rhythm is paced on EKG. Pacemaker interrogation has been ordered. Continue amiodarone, digoxin, metoprolol and warfarin. INR currently therapeutic at 2.7 Continue warfarin, monitor INR (3) HTN (hypertension): Plan: Elevated secondary to pain, continue aggressive pain control regimen. Continue metoprolol (4) Hypothyroidism: Plan: Chronic, stable, continue levothyroxine at home dose (5) CKD (chronic kidney disease), stage III: Plan: Chronic, at baseline. Avoid nephrotoxic substances and renally dose meds as needed. (6) DVT prophylaxis: Plan: Warfarin, INR therapeutic Dispo: med tele; likely d/c home when chest pain better controlled FULL CODE PCP:Lela Pt was seen and examined in collaboration with Dr. Rodriguez, please see addendum Please contact via [place] text with questions or concerns to Liza Lagos). (7) Acute urinary retention: Plan: I have seen and examined the patient and have discussed the case with the provider above. I agree with the assessment and plan as stated. The patient is an 89-year-old female on her third readmission to this hospital in the last 2 months, now with uncontrolled chest wall pain after significant chest wall injury during a syncopal episode a couple weeks back. She has been more controlled with scheduled Tylenol and tramadol. After reducing the pain regimen to scheduled Tylenol only, she appears to have more pain at this time, however it is very difficult to tell as she is not forthcoming with her symptoms. She is also seeming to have some difficulty swallowing pills and is experiencing discomfort from acute urinary retention. She had a Moody catheter removed and has now again failed a trial of void. There has been significant difficulty by nursing staff to replace the Moody catheter this evening and urology has been contacted to place this. Continue with scheduled Tylenol punctuated by tramadol as needed. Ideally, she should be stable on a pain regimen that is oral prior to going home. Agree with physical exam as above DO Michael Admission and Anticipated Discharge Date Admission Date: November 12, 2020 Subjective Patient is sitting up at bedside in room 257 bed 1. Follow-up anterior chest wall pain. She continues to have chest wall pain anteriorly on left side of sternum. Pain is nonradiating and currently is 6 out of 10. She feel her pain is improving. It does worsen with deep breathing. Her appetite is improving and she is tolerating breakfast. She denies any lightheadedness, dizziness, chest pain, shortness of breath, cough, nausea, vomiting, abdominal pain. Review of Systems Review of Systems: All systems reviewed & are unremarkable except as noted in HPI & below Physical Exam Physical Exam: Gen: WD/WN, elderly, female, sitting up at bedside, NAD, A&O x3 HEENT: Normocephalic, atraumatic, conjunctivae moist, sclerae anicteric, mucous membranes moist. Lung: Clear to Auscultation bilaterally, no wheezes/rales/rhonchi Heart: Regular rate, regular rhythm, no murmurs, rubs, or gallops, + Pain to palpation Sternal and LSB Abdomen: Soft, NT, ND +BS x 4 Extremities: No edema Skin: Warm, no rash, negative turgor. Results & Data Results & Data ([facility]) Vital Signs (Past 12 Hours) Vital Signs Temp Pulse Pulse Resp BP Pulse Ox 11/13/20 08:00 36.6 C 61 16 157/75 H 96 11/13/20 03:48 36.6 C 62 18 164/66 H 94 11/12/20 23:54 60 11/12/20 23:36 36.6 C 63 18 181/71 H 95 Laboratory Results Short CBC 11/10/20 11/11/20 11/13/20 Range/Units 16:13 07:13 08:23 WBC 11.36 H (4.8-10.8) K/uL Hgb 11.2 L (12.0-16.0) g/dL Hct 35.2 L (37-47) % Plt Count 357 (130-400) K/uL Sodium 137 134 L (136-145) mmol/L 11/13/20 Range/Units 08:23 WBC (4.8-10.8) K/uL Hgb (12.0-16.0) g/dL Hct (37-47) % Plt Count (130-400) K/uL Sodium 132 L (136-145) mmol/L BMP 11/13/20 08:23 Sodium 132 L Potassium 4.4 Chloride 100 Carbon Dioxide 27 BUN 13 Creatinine 1.21 H Glucose 96 Calcium 8.7 Medications Administered Medication List Acetaminophen (Acetaminophen 500 Mg Tab) 1,000 mg PO Q8H JAKI Stop: 12/10/20 21:59 Last Admin: 11/13/20 06:20 Dose: 1,000 mg Documented by: [id number] Admin: 11/12/20 21:01 Dose: 1,000 mg Documented by: [id number] Admin: 11/12/20 13:41 Dose: 1,000 mg Documented by: [id number] Admin: 11/12/20 05:19 Dose: 1,000 mg Documented by: [id number] Admin: 11/11/20 21:15 Dose: 1,000 mg Documented by: [id number] Admin: 11/11/20 13:41 Dose: 1,000 mg Documented by: [id number] Admin: 11/11/20 05:51 Dose: 1,000 mg Documented by: [id number] Admin: 11/10/20 23:05 Dose: 1,000 mg Documented by: [id number] Amiodarone HCl (Amiodarone 200 Mg Tab) 200 mg PO DAILY JAKI Stop: 12/11/20 08:59 Last Admin: 11/13/20 08:39 Dose: 200 mg Documented by: [id number] Admin: 11/12/20 07:18 Dose: 200 mg Documented by: [id number] Admin: 11/11/20 08:38 Dose: 200 mg Documented by: [id number] Cetirizine HCl (Cetirizine Hcl 10 Mg Tablet) 5 mg PO DAILY JAKI Stop: 12/11/20 08:59 Last Admin: 11/13/20 08:39 Dose: 5 mg Documented by: [id number] Admin: 11/12/20 07:17 Dose: 5 mg Documented by: [id number] Admin: 11/11/20 08:38 Dose: 5 mg Documented by: [id number] Digoxin (Digoxin 0.125 Mg Tab) 0.125 mg PO MoWeFr@1600 JAKI Stop: 12/11/20 15:59 Last Admin: 11/11/20 17:05 Dose: 0.125 mg Documented by: [id number] Escitalopram Oxalate (Escitalopram Oxalate 10 Mg Tab) 5 mg PO QDD JAKI Stop: 12/11/20 16:29 Last Admin: 11/12/20 17:09 Dose: 5 mg Documented by: [id number] Admin: 11/11/20 17:04 Dose: 5 mg Documented by: [id number] Gabapentin (Gabapentin 100 Mg Cap) 100 mg PO HS [facility] Stop: 12/10/20 21:06 Last Admin: 11/12/20 21:01 Dose: 100 mg Documented by: [id number] Admin: 11/11/20 21:14 Dose: 100 mg Documented by: [id number] Admin: 11/10/20 23:01 Dose: 100 mg Documented by: [id number] Sodium Chloride (Nss 1000ml) 1,000 mls @ 80 mls/hr IV .[id number] JAKI Stop: 12/12/20 11:14 Last Admin: 11/13/20 01:42 Dose: 80 mls/hr Documented by: [id number] Infusion: 11/13/20 01:42 Dose: 80 mls/hr Documented by: [id number] Admin: 11/12/20 13:41 Dose: 80 mls/hr Documented by: [id number] Levothyroxine Sodium (Levothyroxine Sodium 50 Mcg Tablet) 50 mcg PO DAILYBB JAKI Stop: 12/11/20 06:29 Last Admin: 11/13/20 06:21 Dose: 50 mcg Documented by: [id number] Admin: 11/12/20 05:19 Dose: 50 mcg Documented by: [id number] Admin: 11/11/20 05:51 Dose: 50 mcg Documented by: [id number] Metoprolol Succinate (Metoprolol Succ 25mg Ext Rel Tab) 25 mg PO DAILY JAKI Stop: 12/11/20 08:59 Last Admin: 11/13/20 08:39 Dose: 25 mg Documented by: [id number] Admin: 11/12/20 07:17 Dose: 25 mg Documented by: [id number] Admin: 11/11/20 08:39 Dose: 25 mg Documented by: [id number] Ropinirole HCl (Ropinirole Hcl 0.25 Mg Tablet) 0.5 mg PO QDD JAKI Stop: 12/11/20 16:29 Last Admin: 11/12/20 17:09 Dose: 0.5 mg Documented by: [id number] Admin: 11/11/20 17:04 Dose: 0.5 mg Documented by: [id number] Rosuvastatin Calcium (Rosuvastatin Calcium 10 Mg Tab) 10 mg PO DAILY JAKI Stop: 12/11/20 08:59 Last Admin: 11/13/20 08:39 Dose: 10 mg Documented by: [id number] Admin: 11/12/20 07:17 Dose: 10 mg Documented by: [id number] Admin: 11/11/20 08:39 Dose: 10 mg Documented by: [id number] Tramadol HCl (Tramadol Hcl 50 Mg Tablet) 50 mg PO Q8H JAKI Stop: 12/10/20 21:59 Last Admin: 11/13/20 06:21 Dose: 50 mg Documented by: [id number] Admin: 11/12/20 21:01 Dose: 50 mg Documented by: [id number] Admin: 11/12/20 13:41 Dose: 50 mg Documented by: [id number] Admin: 11/12/20 05:20 Dose: 50 mg Documented by: [id number] Admin: 11/11/20 21:15 Dose: 50 mg Documented by: [id number] Admin: 11/11/20 13:44 Dose: 50 mg Documented by: [id number] Admin: 11/11/20 05:51 Dose: 50 mg Documented by: [id number] Admin: 11/10/20 23:05 Dose: 50 mg Documented by: [id number] Trolamine Salicylate (Trolamine Salicylate 10% Crm 255 Appln/85 Gm Tube) 1 appln EXT TID [facility] Stop: 12/10/20 21:06 Last Admin: 11/13/20 08:40 Dose: 1 appln Documented by: [id number] Admin: 11/12/20 21:01 Dose: 1 appln Documented by: [id number] Admin: 11/12/20 13:55 Dose: 1 appln Documented by: [id number] Admin: 11/12/20 07:17 Dose: 1 appln Documented by: [id number] Admin: 11/11/20 21:14 Dose: 1 appln Documented by: [id number] Admin: 11/11/20 13:44 Dose: 1 appln Documented by: [id number] Admin: 11/11/20 08:40 Dose: 1 appln Documented by: [id number] Admin: 11/10/20 23:01 Dose: 1 appln Documented by: [id number] Warfarin Sodium (Warfarin Sod 2 Mg Tab) 2 mg PO MOWE@1600 [facility] Stop: 12/11/20 15:59 Last Admin: 11/11/20 17:04 Dose: 2 mg Documented by: [id number] Warfarin Sodium (Warfarin Sod 1 Mg Tab) 1 mg PO SUTUTHFRSA@1600 JAKI Stop: 12/12/20 15:59 Last Admin: 11/12/20 17:09 Dose: 1 mg Documented by: [id number] Discontinued Medications Calcium Gluconate () 1,000 mg in 60 mls @ 240 mls/hr IV NOW STA Stop: 11/10/20 17:28 Last Infusion: 11/10/20 18:16 Dose: 0 mls/hr Documented by: [id number] Admin: 11/10/20 17:50 Dose: 240 mls/hr Documented by: [id number] Loratadine (Loratadine 10 Mg Tab) 10 mg PO NOW ONE Stop: 11/12/20 05:46 Last Admin: 11/12/20 06:01 Dose: 10 mg Documented by: [id number] (1) Atrial fibrillation Atrial fibrillation type: paroxysmal Qualified Code(s): I48.0 - Paroxysmal atrial fibrillation (2) Hypothyroidism Hypothyroidism type: unspecified Qualified Code(s): E03.9 - Hypothyroidism, unspecified (3) HTN (hypertension) Hypertension type: primary hypertension Qualified Code(s): I10 - Essential (primary) hypertension
[2020-11-13] MEDS: WARFARIN SOD 2 MG TAB PO SCH (16:59)
[2020-11-13] MEDS: DIGOXIN 0.125 MG TAB PO SCH (17:01)
[2020-11-13] MEDS: rOPINIRole HCL 0.25 MG TABLET PO SCH (17:01)
[2020-11-13] MEDS: ESCITALOPRAM OXALATE 10 MG TAB PO SCH (17:02)
[2020-11-13] MEDS ORDERED: LIDOCAINE 2% JELLY 5 ML TUBE EXT PRN (20:16)
[2020-11-13] MEDS: GABAPENTIN 100 MG CAP PO SCH (20:40)
--- NOTE | 2020-11-13 21:05 | Urology Consultation ---
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 Currently admitted to hospitalist for chest pain. Moody was removed earlier and retained urine requiring replacement of moody by urology. Procedure: The patient was prepped and draped in a sterile fashion. Two female nurses were present as chaperones. Her urethra was not visible as it was recessed. I initially attempted to place a 16Fr moody without success. I was then able to blindly pass a 14Fr coude moody over my index finger which was placed in the vagina as a guide. Return of clear yellow urine was noted and the balloon was inflated with 10cc of sterile water and set to gravity drainage. Plan: 1. Maintain moody catheter. Do not remove. Moody is difficult is due to recessed urethra, which is common in elderly population due to atrophy. No evidence of stricture. 2. Recommend urine culture to rule out infection as cause of retention 3. Recommend one time dose of oral antibiotic to cover multiple manipulations. Keflex is reasonable based on her allergies to bactrim and cipro. 4. Recommend discharge home with moody catheter. Urology will reschedule outpatient follow up for void trial and retention work up. Our team will do so prior to discharge. 5. If any signs of constipation, recommend bowel regimen as this can be common cause of retention. 6. Urology to sign off. Please contact with any further questions or concerns. History of Present Illness Reason for Consultation: Urinary retention with difficult moody placement Attending Physician: Karishma Rodriguez, History of Present Illness 89 yo female currently admitted to the medicine service for chest pain. Originally had a moody that was placed two days ago per primary team. Moody catheter was removed today and patient was eventually unable to void with bladder scan of 1200cc. Several nurses attempted to place a moody but were unsuccessful. Urology was consulted. She has had a history of urinary retention with difficult moody placements, reportedly due to anatomy. She was last seen as consult on 06/24/17 for the same issue. 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 Unclear if this was a sacrocolpopexy vs sling. She was scheduled for an appointment today as an outpatient with [facility] for previous noted issues. Her creatinine is roughly baseline at 1.1- 1.3 this hospitalization. Last UA in the system showed trace leukocyte esterase, 1-5 WBCs and no RBCS or bacteria. There is no recent imaging in our system of her abdomen or pelvis. Allergies Allergy/AdvReac Type Severity Reaction Status Date / Time ciprofloxacin Allergy Intermediate RASH Verified 11/10/20 16:12 estrogens, conjugated Allergy Intermediate SEVERE Verified 11/10/20 16:12 RASH, PAINFUL FROM VAGINAL CREAM Sulfa (Sulfonamide Allergy Intermediate HIVES, RASH Verified 11/10/20 16:12 Antibiotics) adhesive Allergy Unknown ADHESIVE Verified 11/10/20 16:12 TAPE-SKIN IRRITATION tetanus toxoid, adsorbed Allergy Unknown UNKNOWN Verified 11/10/20 16:12 Home Medications Medication Instructions Recorded Confirmed Type digoxin 125 mcg (0.125 mg) tablet 0.125 mg PO MOWEFR@0900 12/25/17 11/10/20 History levothyroxine 50 mcg tablet 50 mcg PO DAILYBB 12/25/17 11/10/20 History loperamide 2 mg tablet 2 mg PO DIRECTED PRN MDD 16 12/25/17 11/10/20 History MG/24 HOURS nitroglycerin 0.4 mg sublingual 0.4 mg SUBLINGUAL DIRECTED PRN 12/25/17 11/10/20 History tablet ondansetron 4 mg disintegrating 4 mg TRANSLINGUAL Q6 PRN 12/25/17 11/10/20 History tablet betamethasone dipropionate 0.05 % 1 applic TOPICAL BID PRN 01/02/18 11/10/20 History topical ointment diphenhydramine-zinc acetate 2 1 applic TOPICAL QID PRN 01/02/18 11/10/20 History %-0.1 % topical cream acetaminophen 325 mg tablet 650 mg PO Q6H PRN 08/21/18 11/10/20 History (Tylenol) amiodarone 200 mg tablet 200 mg PO DAILY 08/21/18 11/10/20 History hydroxyzine HCl 25 mg tablet 25 mg PO Q6 PRN 08/21/18 11/10/20 History cholecalciferol (vitamin D3) 50 50 mcg PO DAILY 05/31/19 11/10/20 History mcg (2,000 unit) tablet (Vitamin D3) escitalopram oxalate 5 mg tablet 5 mg PO QDD 05/31/19 11/10/20 History metoprolol succinate 25 mg 25 mg PO DAILY 05/31/19 11/10/20 History tablet,extended release 24 hr ammonium lactate 12 % topical cream 1 applic TOPICAL BID PRN 05/23/20 11/10/20 History levocetirizine 5 mg tablet 5 mg PO DAILY 05/23/20 11/10/20 History tramadol 50 mg tablet 25 mg PO Q8H PRN #10 tab 05/27/20 11/10/20 Rx ropinirole 0.5 mg tablet 0.5 mg PO QDD 08/10/20 11/10/20 History gabapentin 100 mg capsule 100 - 200 mg PO HS 11/03/20 11/10/20 History diclofenac sodium 1 % topical gel 2 g TOPICAL TID 11/10/20 11/10/20 History rosuvastatin 10 mg tablet 10 mg PO DAILY 11/10/20 11/10/20 History warfarin 1 mg tablet 1 mg PO SUTUTHFRSA@1600 11/10/20 11/10/20 History warfarin 2 mg tablet 2 mg PO MOWE@1600 11/10/20 11/10/20 History Patient History Medical History Atrial fibrillation Chronic diastolic CHF (congestive heart failure) CKD (chronic kidney disease), stage III Diverticular disease of colon Dyslipidemia Fall Generalized weakness HTN (hypertension) HTN (hypertension) Hypothyroidism Pacemaker RLS (restless legs syndrome) Rosacea SVT (supraventricular tachycardia) Tachy-enid syndrome Surgical History History of carpal tunnel surgery History of cataract surgery History of colon resection History of hysterectomy History of tonsillectomy and adenoidectomy History of total right knee replacement S/P laparoscopic-assisted sigmoidectomy S/P ELISHA (total abdominal hysterectomy) Family History Other Heart disease Social History Smoking Status: Never smoker Second Hand Exposure: No; Hx Alcohol Use: No Hx Substance Use: No Preferred Language: Turkish Communication Ability: Effective Visual Impairment: No Limitations Pillowcase Maker Required: No Beliefs That Will Affect Care: None marital status: / Current Living Situation: Family Current Living Situation Comment: LIVES WITH DAUGHTER HERNANDO Other Information That Helps Us Care for You: No Feels Safe at Home: Yes Safety Concerns: Feels Safe At This Time Assistive Devices: None Review of Systems Review of Systems: 14 point review of systems negative outside of what is listed above in HPI Physical Exam Physical Exam: General: Alert and oriented, no acute distress HEENT: Normocephalic, mucous membranes moist Cardiovascular: Regular rate Pulmonary: Nonlabored respirations Abdomen: Distended, bladder palpable : Normal external female genitalia. Narrow vaginal introitus. Recessed uret hra that is not visible. Extremities: Moves all 4 spontaneously Neuro: No gross deficits Skin: Warm, dry, no rashes noted Results & Data ([facility]) Vital Signs (Past 12 Hours) Vital Signs Temp Pulse Pulse Resp BP Pulse Ox 11/13/20 19:22 36.8 C 61 16 168/80 H 96 11/13/20 17:16 37 C 65 18 160/72 H 94 11/13/20 17:12 36.9 C 60 18 176/71 H 95 11/13/20 17:01 62 11/13/20 11:19 36.4 C L 63 16 134/74 94 PG Care Time/CCT Total # of Minutes Spent Total Time Spent with Patient: Total time spent is greater than 50% in coordination of care (as documented) at patient's floor/unit and/or counseling patient: [place] [address] Inpt Consult Level 5 Patient Type New History Expanded Problem Focused Exam Expanded Problem Focused Medical Decision Making Low Complexity Diagnoses Acute urinary retention R33.8
[2020-11-13 23:29] LABS: Appearance Urine Cloudy (Clear); Bacteria Urine Automated Negative (Negative); Bilirubin Urine Negative (Negative); Blood Urine 1+ (Negative); Cast Urine Automated 0 /lpf (0-5); Color Urine Yellow; Epithelial Cell Urine Auto 0-5 /lpf (0-5); Glucose Urine UA Negative (Negative); Ketones Urine Negative (Negative); Leukocyte Esterase Urine 3+ (Negative); Nitrite Urine Negative (Negative); Protein Urine Trace (Negative); RBC Urine Automated 0-4 /hpf (0-4); Specific Gravity Urine 1.007 (1.000-1.030); Urobilinogen Urine Negative (Negative); WBC Urine Automated >30 /hpf (0-5)
[2020-11-14] MEDS ORDERED: OPTIRAY 320 125ml IV ONE (03:24)
[2020-11-14 04:13] LABS: Prothrombin Time 27.5 Seconds (9.0-12.0)
[2020-11-14 04:18] LABS: Base Excess ABG -5.3 mEq/L (-9-1.8); HCO3 ABG 21 mmol/L (19-24); PCO2 ABG 44 mmHg (35-46); PO2 ABG 70 mmHg (80-95)
[2020-11-14 04:21] LABS: Allen Test POS (Pos)
[2020-11-14 04:23] LABS: Alanine Aminotransferase 41 U/L (12-78); Albumin Level 2.5 gm/dl (3.4-5.0); Aspartate Aminotransferase 51 U/L (15-37); BUN Creatinine Ratio 12.7 (10-20); Blood Urea Nitrogen 13 mg/dl (7-18); Carbon Dioxide 27 mmol/L (21-32); Chloride 104 mmol/L (98-107); Creatinine Clr Calc Pharmacy 30.5 ml/min; Est GFR (African American) 58.6 ml/min; Est GFR (Non-African American) 50.5 ml/min; Glucose 82 mg/dl (70-99); Magnesium 2.1 mg/dl (1.8-2.4); Potassium 3.6 mmol/L (3.5-5.1); Sodium 134 mmol/L (136-145)
[2020-11-14 04:27] LABS: Albumin Globulin Ratio 0.6 (0.9-2); Alkaline Phosphatase 204 U/L (45-117); Bilirubin,Total 0.4 mg/dl (0.2-1); Globulin 3.9 gm/dl (2.5-4.0); Total Protein 6.4 gm/dl (6.4-8.2); Troponin I < 0.015 ng/ml (0-0.045)
[2020-11-14 04:28] LABS: Basophils # (auto) 0.02 K/uL (0-0.2); Basophils % (auto) 0.3 %; Eosinophils # (auto) 0.33 K/uL (0-0.5); Eosinophils % (auto) 4.6 %; Hematocrit (blood only) 32.8 % (37-47); Hemoglobin 10.4 g/dL (12.0-16.0); Immature Granulocytes # (auto) 0.01 K/uL (0.00-0.02); Immature Granulocytes % (auto) 0.1 %; Lymphocytes # (auto) 1.34 K/uL (1.2-3.4); Lymphocytes % (auto) 18.6 %; Mean Corpuscular Hemoglobin 29.6 pg (25-34); Mean Corpuscular Hgb Conc 31.7 g/dL (32-36); Mean Corpuscular Volume 93.4 fL (80-100); Mean Platelet Volume 10.7 fL (7.4-10.4); Monocytes # (auto) 0.64 K/uL (0.11-0.59); Monocytes % (auto) 8.9 %; Neutrophils # (auto) 4.88 K/uL (1.4-6.5); Neutrophils % (auto) 67.5 %; Platelet Count 292 K/uL (130-400); RDW Coefficient of Variation 17.1 % (11.5-14.5); RDW Standard Deviation 58.7 fL (36.4-46.3); Red Blood Count 3.51 M/uL (4.2-5.4); White Blood Count 7.22 K/uL (4.8-10.8)
[2020-11-14] MEDS ORDERED: AZTREONAM CONSULT ACTIVE PRN (04:48)
[2020-11-14] MEDS ORDERED: PHARMACIST DISCHARGE MED REC CONSULT PRN (04:52)
[2020-11-14] MEDS ORDERED: AZTREONAM 1,000 MG in DEXTROSE 5% 100 ML IV SCH (05:00)
[2020-11-14] MEDS ORDERED: SODIUM CHLORIDE 0.9% 1000ML 1,000 ML IV SCH (05:00)
[2020-11-14] MEDS: LEVOTHYROXINE SODIUM 50 MCG TABLET PO SCH (05:06)
[2020-11-14] MEDS: AZTREONAM 2,000 MG in DEXTROSE 5% 100 ML IV SCH ×3 (05:40→20:33)
[2020-11-14] MEDS ORDERED: D5W AND NSS 1,000 ML IV SCH (07:15)
--- NOTE | 2020-11-14 07:26 | CT Scan Report ---
CT head/brain wo con, CT angio head w con CLINICAL HISTORY: 89 years-old Female with new neuro symptoms. Acute strokelike symptoms TECHNIQUE: Multiple axial CT images of the head were obtained without contrast. CTA of the head was a lso obtained along with 3-D coronal and sagittal MIPS. All measurements were obtained according to NA SCET criteria. A dose lowering technique was utilized adhering to the principles of ALARA. CT DOSE: 638.56 mGycm (accession [id number]), 447.44 mGy.cm (accession [id number]) COMPARISON: CTA head neck of same day, head CT 11/03/2020 FINDINGS: CT HEAD: No acute intracranial hemorrhage, midline shift, intracranial mass, hydrocephalus, territorial ischem ia or abnormal extra-axial collection. Age-related involutional changes with ex vacuo ventriculomegal y. White matter hypodensities suggestive of chronic microvascular ischemic disease. Cerebral vascular calcifications. The calvarium is intact. The paranasal sinuses, mastoid air cells, and middle ear cavities are clear . CTA HEAD: The imaged bilateral internal carotid arteries are widely patent demonstrating calcified plaque of th e cavernous and supraclinoid segments. The middle and anterior cerebral arteries are also patent. The vertebral, basilar and posterior cerebral arteries are patent. origin of the right posterior c erebral artery. Cerebral venous sinuses are patent. IMPRESSION: 1. No acute intracranial abnormality. 2. Unremarkable CTA of the head. ACT 112: Negative or not required by law. The above report was generated using voice recognition software. It may contain grammatical, syntax o r spelling errors. Electronically signed by: Cholo Duke M.D. 11/14/2020 7:25 AM
--- NOTE | 2020-11-14 07:26 | CT Scan Report ---
CT head/brain wo con, CT angio head w con CLINICAL HISTORY: 89 years-old Female with new neuro symptoms. Acute strokelike symptoms TECHNIQUE: Multiple axial CT images of the head were obtained without contrast. CTA of the head was a lso obtained along with 3-D coronal and sagittal MIPS. All measurements were obtained according to NA SCET criteria. A dose lowering technique was utilized adhering to the principles of ALARA. CT DOSE: 638.56 mGycm (accession [id number]), 447.44 mGy.cm (accession [id number]) COMPARISON: CTA head neck of same day, head CT 11/03/2020 FINDINGS: CT HEAD: No acute intracranial hemorrhage, midline shift, intracranial mass, hydrocephalus, territorial ischem ia or abnormal extra-axial collection. Age-related involutional changes with ex vacuo ventriculomegal y. White matter hypodensities suggestive of chronic microvascular ischemic disease. Cerebral vascular calcifications. The calvarium is intact. The paranasal sinuses, mastoid air cells, and middle ear cavities are clear . CTA HEAD: The imaged bilateral internal carotid arteries are widely patent demonstrating calcified plaque of th e cavernous and supraclinoid segments. The middle and anterior cerebral arteries are also patent. The vertebral, basilar and posterior cerebral arteries are patent. origin of the right posterior c erebral artery. Cerebral venous sinuses are patent. IMPRESSION: 1. No acute intracranial abnormality. 2. Unremarkable CTA of the head. ACT 112: Negative or not required by law. The above report was generated using voice recognition software. It may contain grammatical, syntax o r spelling errors. Electronically signed by: Cholo Duke M.D. 11/14/2020 7:25 AM
[2020-11-14] MEDS: ROSUVASTATIN CALCIUM 10 MG TAB PO SCH (09:00)
[2020-11-14] MEDS: AMIODARONE 200 MG TAB PO SCH (09:00)
[2020-11-14] MEDS: TROLAMINE SALICYLATE 10% CRM 255 APPLN/85 GM TUBE EXT SCH ×3 (09:00→20:34)
[2020-11-14] MEDS: METOPROLOL SUCC 25MG EXT REL TAB PO SCH (09:00)
[2020-11-14] MEDS: CETIRIZINE HCL 10 MG TABLET PO SCH (09:00)
--- NOTE | 2020-11-14 09:29 | CT Scan Report ---
CT angio neck with con CLINICAL HISTORY: cva COMPARISON STUDY: No previous studies for comparison. TECHNIQUE: CT angiography was performed from the aortic arch to the skull base. MIP imaging was perfo rmed. The patient was scanned in a dynamic helical fashion during intravenous administration of 120 c c of Optiray. A dose lowering technique was utilized adhering to the principles of ALARA. CT DOSE: Technique: CT angiogram of the carotid and vertebral arteries was obtained using intravenous contrast and 3-D reconstruction. NASCET criteria was utilized. Findings: Partial calcified plaques are seen within bilateral carotid bulbs. The right carotid revealed no evidence of aneurysm and no evidence of dissection. There is no evidenc e of hemodynamic significant stenosis. Approximately 50% stenosis is seen within proximal aspect of the left internal carotid artery (4/253) . Left internal carotid artery is extremely tortuous. No evidence of focal occlusion or dissection. There is no evidence of hemodynamically significant vertebral stenosis. Right and left vertebral ilda garrett are tortuous. There is no evidence of vertebral dissection. IMPRESSION: No evidence of hemodynamically significant carotid or vertebral artery stenosis. No evidence of disse ction. Mild atherosclerotic involvement of bilateral carotid bulbs as detailed above. ACT 112: Negative or not required by law. The above report was generated using voice recognition software. It may contain grammatical, syntax o r spelling errors. Electronically signed by: Rita Paul DO 11/14/2020 9:27 AM
--- NOTE | 2020-11-14 11:09 | Hospitalist Progress Note ---
Date of Service November 14, 2020 Assessment & Plan Admission and Anticipated Discharge Date Admission Date: November 12, 2020 Subjective Stroke alert was called on patient last night. Around 2:30am patient was not conversing for nursing staff. Last well know was midnight when patient was talking. Hard of hearing. Patient staring and answering only by nod of head. Tried to squeeze hands. For agnieszka neurology patient was able to lift and hold left extremities on command. Also was able to left right extremities but was not able to hold for long. She was ablet vto move her eyes and was watching vtv. ct head, cta head and neck unremarkable. Labs seemed ok though ph was 7.3 but no obvious co2 retention or acidosis. Ammonia slightly elevated. No leukocytosis. Lactic aci normal.Agnieszka neurology thought probably small stoke affecting her speech vs metabolic enecephalopathy.Deemed not a tpa candidate.On coumadin inr 3.0.Recommeded to repeat ct head in 12hrs if no improvement. Patient has pace maker and not know mri compatability so mri not ordered . Npo. Speech and neurology consult. Iv fluids. IV azactum. Will follow cultures. Follow repeat labs.Monitor in med/tele. Results & Data Results & Data ([facility]) Vital Signs (Past 12 Hours) Vital Signs Temp Pulse Resp BP Pulse Ox 11/14/20 07:00 36.5 C 62 16 164/76 H 96 11/14/20 02:15 65 16 176/83 H 96 11/13/20 23:43 36.6 C 59 L 16 171/70 H 94
[2020-11-14] MEDS: ACETAMINOPHEN 500 MG TAB PO SCH ×2 (15:11→20:37)
--- NOTE | 2020-11-14 17:37 | Consultation Report ---
DATE OF SERVICE: 11/14/2020 HISTORY OF PRESENT ILLNESS: Mrs. Keith is well-known to our practice. She has had multiple syncopal episodes, which resulted in a pacemaker placement without resolution of the episodes. She has had multiple EEGs, which have been normal. She has been orthostatic at times resulting in some decrease in her medication such as ropinirole. On this background, she was admitted for pain management. She had fallen at home while getting her hair washed in the sink. She indicates she fell forward onto the sink and bruised her sternum. There was no loss of consciousness. She was admitted to our hospital and then discharged on Tylenol and tramadol, readmitted for ongoing pain. The date of readmission was ___. She has been receiving tramadol and morphine. The last dose of morphine was 8:00 p.m. last evening, and approximately at 2:30 amthe patient had an episode which was described by Dr. Tan. At 2:30 a.m., the patient was not conversing for nursing staff. Last well was midnight when she was talking. Hard of hearing. The patient started answering only by nod of head (according to nursing, she was appropriate). She tried to squeeze hands. Per [facility], she was able to lift and hold her left extremities on command, also able to lift the right extremities, but not able to hold for long. She was able to move her eyes and was watching TV. CT of the head and CTA of the head and neck were unremarkable. Labs were unremarkable, although her pH was 7.3 without obvious CO2 retention or acidosis. Ammonia was slightly elevated. No leukocytosis. Lactic acid was normal. The impression of the examining neurologist was TIA versus metabolic encephalopathy, not a TPA candidate due to on Coumadin with an INR of 3. Recommend a followup CT of the head in 12 hours if no improvement. The patient has a pacemaker and not known if MRI is compatible. That episode apparently resolved, although the duration of which is not known to this examiner. The patient indicates that she has generally felt unwell. She does recall last evening that she was looking at somebody on the monitor. She indicates she was able to look around and look at the TV. She cannot say whether or not she had any headache or whether or not there were any focal neurologic complaints. As stated above, she has had multiple syncopal episodes and she has been seen by our practice on multiple occasions. Imaging and diagnostics in the past have included the aforementioned EEGs and she had the CT and CTA of the head and neck on this admission, which did not show anything significant. There are chronic white matter hypodensities and ex vacuo ventriculomegaly. In 2020, she had a carotid ultrasound, which showed 50%-69% of the left internal carotid, although the most recent CTA did not support that. She had a CTA of the head and neck in 2019, carotid Doppler as well. She has had prior MRI imaging. I do not know if her pacemaker was interrogated last evening. PAST MEDICAL HISTORY: Notable for multiple syncopal events, tachybrady syndrome, COVID in 09/2018 without pneumonia or hypoxia, but with significant weakness, AFib, congestive heart failure, chronic kidney disease, diverticular disease, dyslipidemia, generalized weakness, hypertension, hypothyroidism, restless legs, rosacea, SVT, tachybrady syndrome. PAST SURGICAL HISTORY: Carpal tunnel, cataract, colon resection, hysterectomy, tonsillectomy, adenoidectomy, total knee on the right, laparoscopic-assisted sigmoidectomy and total hysterectomy. FAMILY HISTORY: Heart disease. The patient does not smoke and does not drink alcohol. She lives with family. HOME MEDICATIONS: Digoxin, levothyroxine, loperamide, nitro, Zofran, some ointments, Tylenol, amiodarone, hydroxyzine, vitamin D, Lexapro, metoprolol, levocetirizine, tramadol, ropinirole, gabapentin, diclofenac, rosuvastatin and warfarin. HOSPITAL MEDICATIONS: Include Myoflex ointment, rosuvastatin, warfarin, amiodarone, digoxin, Lexapro, gabapentin 100 mg at bedtime, cetirizine, levothyroxine, metoprolol and Requip 0.5. Tramadol was discontinued. Morphine was last given at 8:00 p.m. before the episode. PHYSICAL EXAMINATION: On examination, the patient is awake and alert, in mild pain, oriented x3, no right/left confusion. Naming and repetitions normal. There are no carotid bruits, no heart murmurs. Pupils are post-surgical and left is eccentrically located. I could not visualize the optic nerves. There are normal metz, motility, facial sensation, facial symmetry plus/minus some minor flattening of the right nasolabial fold. Motor is 5/5, no drift. Normal rapid alternating movements. Symmetric reflexes, downgoing toes. [id number] and [id number] are normal. Sensation is intact to light touch. IMPRESSION AND PLAN: This is a patient with multiple syncopal episodes of unclear etiology. Some hypotension in the past. This most recent episode where the patient was staring and mute, but nodding appropriately is of unclear etiology. The differential includes a transient ischemic attack, a partial complex seizure or a metabolic encephalopathy, possibly related to morphine. I would recommend an EEG and consider an ambulatory EEG as an outpatient given her multiple syncopal episodes. I would recommend that cardiology interrogate the pacemaker at the time of the event. I would consider repeating an echocardiogram if one has not recently been done. As this spell was different than her prior and if nothing is found on the workup, consider the addition of an enteric-coated aspirin [address] Casanova will be taking over the service tomorrow. Job ID: [id number] [facility]
[2020-11-14] MEDS: WARFARIN SOD 1 MG TAB PO SCH (17:51)
[2020-11-14] MEDS: rOPINIRole HCL 0.25 MG TABLET PO SCH (17:51)
[2020-11-14] MEDS: ESCITALOPRAM OXALATE 10 MG TAB PO SCH (17:52)
--- NOTE | 2020-11-14 18:17 | Hospitalist Progress Note ---
Date of Service November 14, 2020 Assessment & Plan (1) Anterior chest wall pain: Plan: S/P Chest wall injury with syncope prior to previous admission. Unfortunately pt discharged to home and was re admitted due to uncontrolled pain. Chest wall remains tender, but improving. Cardiac work up not concerning. pacemaker interrogation report WNL. Continue scheduled APAP. Will change tramadol to PRN and see how she does. IV morphine available if needed; however pt has not yet used this. Apply Myoflex cream 3 times daily and utilize thermal pad. Encourage mobilization as tolerated. Encourage incentive spirometry Baseline ambulates with walker with minimal assistance and notably has had recent falls in the last few months. Ambulating in room with assist and walker x 1 PT/OT on board - pt is to d/c to home Orthostatic hypotension Orthostatic vitals yesterday revealed blood pressure lying 148/70 pulse 63, sitting 129/66 and pulse 62, standing BP 95/58, pulse 63 patient received maintenance fluids - will repeat may be related to narcotics Urinary retention during recent hosp stay pt had urinary retention felt 2/2 to possible anatomy and stricture peripheral consult with urology was made recommending moody cath placement this was removed yesterday nurse contacted for bladder scans she was to see urology in office today for TOV - will consult them formally here (2) Atrial fibrillation: Plan: Chronic, rate controlled. Pacemaker in place and rhythm is paced on EKG. Pacemaker interrogation has been ordered. Continue amiodarone, digoxin, metoprolol and warfarin. INR currently therapeutic at 2.7 Continue warfarin, monitor INR (3) HTN (hypertension): Plan: Elevated secondary to pain, continue aggressive pain control regimen. Continue metoprolol (4) Hypothyroidism: Plan: Chronic, stable, continue levothyroxine at home dose (5) CKD (chronic kidney disease), stage III: Plan: Chronic, at baseline. Avoid nephrotoxic substances and renally dose meds as needed. (6) DVT prophylaxis: Plan: Warfarin, INR therapeutic Dispo: med tele; likely d/c home when chest pain better controlled FULL CODE PCP:Lela Pt was seen and examined in collaboration with Dr. Rodriguez, please see addendum Please contact via [place] text with questions or concerns to Liza Lagos). (7) Acute urinary retention: Plan: I have seen and examined the patient and have discussed the case with the provider above. I agree with the assessment and plan as stated. The patient is an 89-year-old female on her third readmission to this hospital in the last 2 months, now with uncontrolled chest wall pain after significant chest wall injury during a syncopal episode a couple weeks back. She has been more controlled with scheduled Tylenol and tramadol. After reducing the pain regimen to scheduled Tylenol only, she appears to have more pain at this time, however it is very difficult to tell as she is not forthcoming with her symptoms. She is also seeming to have some difficulty swallowing pills and is experiencing discomfort from acute urinary retention. She had a Moody catheter removed and has now again failed a trial of void. There has been significant difficulty by nursing staff to replace the Moody catheter this evening and urology has been contacted to place this. Continue with scheduled Tylenol punctuated by tramadol as needed. Ideally, she should be stable on a pain regimen that is oral prior to going home. Agree with physical exam as above Michael DO Admission and Anticipated Discharge Date Admission Date: November 12, 2020 Subjective 89 yo F with multiple comorbidities and multiple recent hospitalizations including a recent stay after a syncopal event resulting in her falling into a sink hitting her anterior chest wall. Overnight she had worsening AUR resulting in 3 failed attempts by nurses to place a Moody. Urology was consulted and came in around 8[address] Moody successfully. Around 2:00 AM patient was found unresponsive and not conversing with nursing staff. She is hard of hearing and was staring straight ahead answering only with a nod of her head. There was concern for possible stroke and a stroke alert was called. Work-up was unremarkable with the exception of ammonia which was slightly elevated. She was not deemed a TPA candidate as she was therapeutic on Coumadin. Recommendation for repeat CT head in 12 hours was made if there was no clinical improvement. An MRI was not ordered secondary to presence of pacemaker. Speech and neurology were consulted. IV Azactam was started. She was made NPO. Throughout the day today she is clinically improved and is mentating at her baseline and verbalizing without issue. She has poor insight into her medical issues and is not able to answer much about what pain meds are working or not or historical issues with regard to last night's events. She still feels poorly overall which is the general consensus every day. We discussed the fact that her intercostal injury will persist for weeks. It appears scheduled Tylenol with minimal tramadol at 25 mg every 8 hours is helpful for her. She was evaluated by speech and is now eating and tolerating p.o. well. There is no evidence of infection. Per neurology a repeat pacemaker interrogation and consideration for repeat echo was recommended. Although she was placed back on telemetry today, she is very allergic to the EKG leads, and is itching profusely. Her anterior chest wall is red from scratching and the erythema from the reaction. She has been stable with a paced rhythm on telemetry all day and we will remove these now. There are pediatric leads available but per nursing these are not able to stick on well enough. Review of Systems Review of Systems: At least ten systems were reviewed and negative except as indicated in HPI above. Physical Exam Physical Exam: CONSTITUTIONAL: WNWD, vitals as above, generally ill- appearing, NAD EYES: PERRL, irregularity to right pupil noted, normal conjunctivae, no scleral icterus ENT: external ear and nose normal, oropharynx clear NECK: trachea midline RESPIRATORY: clear to auscultation bilaterally, no crackles, rales or wheezes, normal respiratory effort CARDIOVASCULAR: regular rate and rhythm, S1 and 2 heard without murmurs, gallops or rubs, no JVD, no peripheral edema CHEST: +pacemaker to left anterior chest. Slight raised areas that are pink where previous cardiac leads were placed. GASTROINTESTINAL: soft, nontender, ND, no guarding. MUSCULOSKELETAL: strength 5/5 throughout, head is normocephalic and atraumatic, severe chest wall TTP across parasternal borders and left intercostals SKIN: warm and dry, small papular rash on upper mid back. NEUROLOGIC: CN 2-12 grossly intact, no sensory deficit, normal cognition, normal speech, no tremor PSYCHIATRIC: alert cooperative and oriented to person, place and time. Results & Data Results & Data ([facility]) Vital Signs (Past 12 Hours) Vital Signs Temp Pulse Resp BP Pulse Ox 11/14/20 15:49 36.4 C L 82 16 166/74 H 95 11/14/20 11:31 36.1 C L 60 16 150/81 H 96 11/14/20 07:00 36.5 C 62 16 164/76 H 96 Laboratory Results Short CBC 11/14/20 Range/Units 03:51 WBC 7.22 (4.8-10.8) K/uL Hgb 10.4 L (12.0-16.0) g/dL Hct 32.8 L (37-47) % Plt Count 292 (130-400) K/uL BMP 11/14/20 03:51 Sodium 134 L Potassium 3.6 D Chloride 104 Carbon Dioxide 27 BUN 13 Creatinine 0.99 Glucose 82 Calcium 8.0 L Cardiac Enzymes 11/14/20 Range/Units 03:51 Troponin I < 0.015 (0-0.045) ng/ml Liver Function 11/14/20 Range/Units 03:51 Total Bilirubin 0.4 (0.2-1) mg/dl AST 51 H (15-37) U/L ALT 41 (12-78) U/L Alkaline Phosphatase 204 H (45-117) U/L Albumin 2.5 L (3.4-5.0) gm/dl Urine 11/13/20 Range/Units 22:50 Urine Color Yellow Urine Appearance Cloudy A (Clear) Urine pH 7.0 (4.5-7.5) Ur Specific [place] 1.007 (1.000-1.030) Urine Protein Trace H (Negative) Urine Glucose (UA) Negative (Negative) Medications Administered Current Inpatient Medications Acetaminophen (Acetaminophen 500 Mg Tab) 1,000 mg PO Q8H JAKI Stop: 12/10/20 21:59 Last Admin: 11/14/20 15:11 Dose: 1,000 mg Documented by: Amiodarone HCl (Amiodarone 200 Mg Tab) 200 mg PO DAILY JAKI Stop: 12/11/20 08:59 Last Admin: 11/14/20 09:00 Dose: Not Given Documented by: Aztreonam (Aztreonam Consult Active) 1 ea N/A UD PRN PRN Reason: Consult Stop: 12/14/20 04:47 Cetirizine HCl (Cetirizine Hcl 10 Mg Tablet) 5 mg PO DAILY JAKI Stop: 12/11/20 08:59 Last Admin: 11/14/20 09:00 Dose: Not Given Documented by: Digoxin (Digoxin 0.125 Mg Tab) 0.125 mg PO MoWeFr@1600 JAKI Stop: 12/11/20 15:59 Last Admin: 11/13/20 17:01 Dose: 0.125 mg Documented by: Escitalopram Oxalate (Escitalopram Oxalate 10 Mg Tab) 5 mg PO QDD [facility] Stop: 12/11/20 16:29 Last Admin: 11/14/20 17:52 Dose: 5 mg Documented by: Gabapentin (Gabapentin 100 Mg Cap) 100 mg PO HS [facility] Stop: 12/10/20 21:06 Last Admin: 11/13/20 20:40 Dose: 100 mg Documented by: Aztreonam 2,000 mg/ Dextrose 110 mls @ 100 mls/hr IV Q8H [facility]; Protocol Stop: 11/24/20 04:59 Last Infusion: 11/14/20 14:28 Dose: Infused Documented by: Dextrose/Sodium Chloride (D5w And Nss) 1,000 mls @ 80 mls/hr IV .[id number] [facility] Stop: 12/14/20 07:14 Last Admin: 11/14/20 07:15 Dose: 80 mls/hr Documented by: Levothyroxine Sodium (Levothyroxine Sodium 50 Mcg Tablet) 50 mcg PO DAILYBB [facility] Stop: 12/11/20 06:29 Last Admin: 11/14/20 05:06 Dose: Not Given Documented by: Lidocaine HCl (Lidocaine 2% Jelly 5 Ml Tube) 5 ml EXT ONE PRN PRN Reason: pain w moody placement Stop: 12/13/20 20:15 Metoprolol Succinate (Metoprolol Succ 25mg Ext Rel Tab) 25 mg PO DAILY [facility] Stop: 12/11/20 08:59 Last Admin: 11/14/20 09:00 Dose: Not Given Documented by: Miscellaneous Information (Pharmacist Discharge Med Rec Consult) 1 ea N/A UD PRN PRN Reason: Consult Stop: 12/14/20 04:51 Nitroglycerin (Nitroglycerin Sl 0.4 Mg/Tab Tab) 0.4 mg SL PRN PRN PRN Reason: Chest Pain Stop: 12/10/20 21:06 Ropinirole HCl (Ropinirole Hcl 0.25 Mg Tablet) 0.5 mg PO QDD [facility] Stop: 12/11/20 16:29 Last Admin: 11/14/20 17:51 Dose: 0.5 mg Documented by: Rosuvastatin Calcium (Rosuvastatin Calcium 10 Mg Tab) 10 mg PO DAILY [facility] Stop: 12/11/20 08:59 Last Admin: 11/14/20 09:00 Dose: Not Given Documented by: Trolamine Salicylate (Trolamine Salicylate 10% Crm 255 Appln/85 Gm Tube) 1 appln EXT TID [facility] Stop: 12/10/20 21:06 Last Admin: 11/14/20 15:12 Dose: 1 appln Documented by: Warfarin Sodium (Warfarin Sod 2 Mg Tab) 2 mg PO MOWE@1600 [facility] Stop: 12/11/20 15:59 Last Admin: 11/13/20 16:59 Dose: 2 mg Documented by: Warfarin Sodium (Warfarin Sod 1 Mg Tab) 1 mg PO [id number]@1600 [facility] Stop: 12/12/20 15:59 Last Admin: 11/14/20 17:51 Dose: 1 mg Documented by: (1) Atrial fibrillation Atrial fibrillation type: paroxysmal Qualified Code(s): I48.0 - Paroxysmal atrial fibrillation (2) Hypothyroidism Hypothyroidism type: unspecified Qualified Code(s): E03.9 - Hypothyroidism, unspecified (3) HTN (hypertension) Hypertension type: primary hypertension Qualified Code(s): I10 - Essential (primary) hypertension
[2020-11-14] MEDS: traMADol HCL 50 MG TABLET PO SCH (20:32)
[2020-11-14] MEDS: GABAPENTIN 100 MG CAP PO SCH (20:34)
[2020-11-14] MEDS: BETAMETHASONE DIP AUG (DIPROLENE) 0.05% CR 15 GM TUBE EXT SCH (22:15)
[2020-11-15] MEDS: LEVOTHYROXINE SODIUM 50 MCG TABLET PO SCH (04:11)
[2020-11-15] MEDS: traMADol HCL 50 MG TABLET PO SCH ×2 (04:12→10:19)
[2020-11-15] MEDS: ACETAMINOPHEN 500 MG TAB PO SCH ×2 (04:14→13:10)
[2020-11-15] MEDS: AZTREONAM 2,000 MG in DEXTROSE 5% 100 ML IV SCH (04:15)
[2020-11-15 08:40] LABS: Basophils # (auto) 0.03 K/uL (0-0.2); Basophils % (auto) 0.4 %; Eosinophils # (auto) 0.45 K/uL (0-0.5); Eosinophils % (auto) 5.4 %; Hematocrit (blood only) 36.9 % (37-47); Hemoglobin 11.6 g/dL (12.0-16.0); Immature Granulocytes # (auto) 0.02 K/uL (0.00-0.02); Immature Granulocytes % (auto) 0.2 %; Lymphocytes # (auto) 1.53 K/uL (1.2-3.4); Lymphocytes % (auto) 18.2 %; Mean Corpuscular Hemoglobin 29.5 pg (25-34); Mean Corpuscular Hgb Conc 31.4 g/dL (32-36); Mean Corpuscular Volume 93.9 fL (80-100); Mean Platelet Volume 11.2 fL (7.4-10.4); Monocytes # (auto) 0.69 K/uL (0.11-0.59); Monocytes % (auto) 8.2 %; Neutrophils # (auto) 5.68 K/uL (1.4-6.5); Neutrophils % (auto) 67.6 %; Platelet Count 347 K/uL (130-400); RDW Coefficient of Variation 17.3 % (11.5-14.5); RDW Standard Deviation 60.5 fL (36.4-46.3); Red Blood Count 3.93 M/uL (4.2-5.4)
[2020-11-15 08:59] LABS: INR 3.5 (0.9-1.1)
[2020-11-15 09:07] LABS: BUN Creatinine Ratio 10.3 (10-20); Calcium 9.1 mg/dl (8.5-10.1); Creatinine Clr Calc Pharmacy 27.4 ml/min; Est GFR (African American) 51.5 ml/min; Est GFR (Non-African American) 44.5 ml/min; Potassium 4.1 mmol/L (3.5-5.1)
[2020-11-15] MEDS: TROLAMINE SALICYLATE 10% CRM 255 APPLN/85 GM TUBE EXT SCH ×3 (09:40→13:09)
[2020-11-15 09:49] LABS: Estimated Average Glucose 128 mg/dl; Hemoglobin A1C 6.1 % (4.5-5.6)
[2020-11-15] MEDS: CETIRIZINE HCL 10 MG TABLET PO SCH (10:12)
[2020-11-15] MEDS: METOPROLOL SUCC 25MG EXT REL TAB PO SCH (10:13)
[2020-11-15] MEDS: AMIODARONE 200 MG TAB PO SCH (10:13)
[2020-11-15] MEDS: ROSUVASTATIN CALCIUM 10 MG TAB PO SCH (10:13)
[2020-11-15] MEDS: BETAMETHASONE DIP AUG (DIPROLENE) 0.05% CR 15 GM TUBE EXT SCH (10:15)
--- NOTE | 2020-11-15 13:38 | Electroencephalogram ---
EEG Procedure Note Date of Service November 15, 2020 Start / End Times Start Time: 941 End Time: 1002 Referring Physician Gracia aGrcia MD History Episodic confusion with staring spells question seizures Home Medication List Medication Instructions Recorded Confirmed Type digoxin 125 mcg (0.125 mg) tablet 0.125 mg PO MOWEFR@0900 12/25/17 11/10/20 History levothyroxine 50 mcg tablet 50 mcg PO DAILYBB 12/25/17 11/10/20 History loperamide 2 mg tablet 2 mg PO DIRECTED PRN MDD 16 12/25/17 11/10/20 History MG/24 HOURS nitroglycerin 0.4 mg sublingual 0.4 mg SUBLINGUAL DIRECTED PRN 12/25/17 11/10/20 History tablet ondansetron 4 mg disintegrating 4 mg TRANSLINGUAL Q6 PRN 12/25/17 11/10/20 History tablet betamethasone dipropionate 0.05 % 1 applic TOPICAL BID PRN 01/02/18 11/10/20 History topical ointment diphenhydramine-zinc acetate 2 1 applic TOPICAL QID PRN 01/02/18 11/10/20 History %-0.1 % topical cream acetaminophen 325 mg tablet 650 mg PO Q6H PRN 08/21/18 11/10/20 History (Tylenol) amiodarone 200 mg tablet 200 mg PO DAILY 08/21/18 11/10/20 History hydroxyzine HCl 25 mg tablet 25 mg PO Q6 PRN 08/21/18 11/10/20 History cholecalciferol (vitamin D3) 50 50 mcg PO DAILY 05/31/19 11/10/20 History mcg (2,000 unit) tablet (Vitamin D3) escitalopram oxalate 5 mg tablet 5 mg PO QDD 05/31/19 11/10/20 History metoprolol succinate 25 mg 25 mg PO DAILY 05/31/19 11/10/20 History tablet,extended release 24 hr ammonium lactate 12 % topical cream 1 applic TOPICAL BID PRN 05/23/20 11/10/20 History levocetirizine 5 mg tablet 5 mg PO DAILY 05/23/20 11/10/20 History tramadol 50 mg tablet 25 mg PO Q8H PRN #10 tab 05/27/20 11/10/20 Rx ropinirole 0.5 mg tablet 0.5 mg PO QDD 08/10/20 11/10/20 History gabapentin 100 mg capsule 100 - 200 mg PO HS 11/03/20 11/10/20 History diclofenac sodium 1 % topical gel 2 g TOPICAL TID 11/10/20 11/10/20 History rosuvastatin 10 mg tablet 10 mg PO DAILY 11/10/20 11/10/20 History warfarin 1 mg tablet 1 mg PO SUTUTHFRSA@1600 11/10/20 11/10/20 History warfarin 2 mg tablet 2 mg PO MOWE@1600 11/10/20 11/10/20 History Inpatient Medication List Acetaminophen (Acetaminophen 500 Mg Tab) 1,000 mg PO Q8H JAKI Stop: 12/10/20 21:59 Last Admin: 11/15/20 13:10 Dose: 1,000 mg Documented by: [id number] Admin: 11/15/20 04:14 Dose: 1,000 mg Documented by: [id number] Admin: 11/14/20 20:37 Dose: 1,000 mg Documented by: [id number] Admin: 11/14/20 15:11 Dose: 1,000 mg Documented by: [id number] Admin: 11/13/20 22:13 Dose: Not Given Documented by: [id number] Admin: 11/13/20 20:40 Dose: 1,000 mg Documented by: [id number] Admin: 11/13/20 17:00 Dose: 1,000 mg Documented by: [id number] Admin: 11/13/20 06:20 Dose: 1,000 mg Documented by: [id number] Admin: 11/12/20 21:01 Dose: 1,000 mg Documented by: [id number] Admin: 11/12/20 13:41 Dose: 1,000 mg Documented by: [id number] Admin: 11/12/20 05:19 Dose: 1,000 mg Documented by: [id number] Admin: 11/11/20 21:15 Dose: 1,000 mg Documented by: [id number] Admin: 11/11/20 13:41 Dose: 1,000 mg Documented by: [id number] Admin: 11/11/20 05:51 Dose: 1,000 mg Documented by: [id number] Admin: 11/10/20 23:05 Dose: 1,000 mg Documented by: [id number] Amiodarone HCl (Amiodarone 200 Mg Tab) 200 mg PO DAILY JAKI Stop: 12/11/20 08:59 Last Admin: 11/15/20 10:13 Dose: 200 mg Documented by: [id number] Admin: 11/14/20 09:00 Dose: Not Given Documented by: [id number] Admin: 11/13/20 08:39 Dose: 200 mg Documented by: [id number] Admin: 11/12/20 07:18 Dose: 200 mg Documented by: [id number] Admin: 11/11/20 08:38 Dose: 200 mg Documented by: [id number] Betamethasone Dipropion Augmented (Betamethasone Dip Aug (Diprolene) 0.05% Cr 15 Gm Tube) 1 appln EXT BID [facility] Stop: 12/14/20 20:59 Last Admin: 11/15/20 10:15 Dose: 1 appln Documented by: [id number] Admin: 11/14/20 22:15 Dose: 1 appln Documented by: [id number] Cetirizine HCl (Cetirizine Hcl 10 Mg Tablet) 5 mg PO DAILY [facility] Stop: 12/11/20 08:59 Last Admin: 11/15/20 10:12 Dose: 5 mg Documented by: [id number] Admin: 11/14/20 09:00 Dose: Not Given Documented by: [id number] Admin: 11/13/20 08:39 Dose: 5 mg Documented by: [id number] Admin: 11/12/20 07:17 Dose: 5 mg Documented by: [id number] Admin: 11/11/20 08:38 Dose: 5 mg Documented by: [id number] Digoxin (Digoxin 0.125 Mg Tab) 0.125 mg PO MoWeFr@1600 [facility] Stop: 12/11/20 15:59 Last Admin: 11/13/20 17:01 Dose: 0.125 mg Documented by: [id number] Admin: 11/11/20 17:05 Dose: 0.125 mg Documented by: [id number] Escitalopram Oxalate (Escitalopram Oxalate 10 Mg Tab) 5 mg PO QDD [facility] Stop: 12/11/20 16:29 Last Admin: 11/14/20 17:52 Dose: 5 mg Documented by: [id number] Admin: 11/13/20 17:02 Dose: 5 mg Documented by: [id number] Admin: 11/12/20 17:09 Dose: 5 mg Documented by: [id number] Admin: 11/11/20 17:04 Dose: 5 mg Documented by: [id number] Gabapentin (Gabapentin 100 Mg Cap) 100 mg PO HS JAKI Stop: 12/10/20 21:06 Last Admin: 11/14/20 20:34 Dose: 100 mg Documented by: [id number] Admin: 11/13/20 20:40 Dose: 100 mg Documented by: [id number] Admin: 11/12/20 21:01 Dose: 100 mg Documented by: [id number] Admin: 11/11/20 21:14 Dose: 100 mg Documented by: [id number] Admin: 11/10/20 23:01 Dose: 100 mg Documented by: [id number] Levothyroxine Sodium (Levothyroxine Sodium 50 Mcg Tablet) 50 mcg PO DAILYBB JAKI Stop: 12/11/20 06:29 Last Admin: 11/15/20 04:11 Dose: 50 mcg Documented by: [id number] Admin: 11/14/20 05:06 Dose: Not Given Documented by: [id number] Admin: 11/13/20 06:21 Dose: 50 mcg Documented by: [id number] Admin: 11/12/20 05:19 Dose: 50 mcg Documented by: [id number] Admin: 11/11/20 05:51 Dose: 50 mcg Documented by: [id number] Metoprolol Succinate (Metoprolol Succ 25mg Ext Rel Tab) 25 mg PO DAILY JAKI Stop: 12/11/20 08:59 Last Admin: 11/15/20 10:13 Dose: 25 mg Documented by: [id number] Admin: 11/14/20 09:00 Dose: Not Given Documented by: [id number] Admin: 11/13/20 08:39 Dose: 25 mg Documented by: [id number] Admin: 11/12/20 07:17 Dose: 25 mg Documented by: [id number] Admin: 11/11/20 08:39 Dose: 25 mg Documented by: [id number] Ropinirole HCl (Ropinirole Hcl 0.25 Mg Tablet) 0.5 mg PO QDD JAKI Stop: 12/11/20 16:29 Last Admin: 11/14/20 17:51 Dose: 0.5 mg Documented by: [id number] Admin: 11/13/20 17:01 Dose: 0.5 mg Documented by: [id number] Admin: 11/12/20 17:09 Dose: 0.5 mg Documented by: [id number] Admin: 11/11/20 17:04 Dose: 0.5 mg Documented by: [id number] Rosuvastatin Calcium (Rosuvastatin Calcium 10 Mg Tab) 10 mg PO DAILY JAKI Stop: 12/11/20 08:59 Last Admin: 11/15/20 10:13 Dose: 10 mg Documented by: [id number] Admin: 11/14/20 09:00 Dose: Not Given Documented by: [id number] Admin: 11/13/20 08:39 Dose: 10 mg Documented by: [id number] Admin: 11/12/20 07:17 Dose: 10 mg Documented by: [id number] Admin: 11/11/20 08:39 Dose: 10 mg Documented by: [id number] Tramadol HCl (Tramadol Hcl 50 Mg Tablet) 25 mg PO Q8H JAKI Stop: 12/14/20 19:14 Last Admin: 11/15/20 10:19 Dose: 25 mg Documented by: [id number] Admin: 11/15/20 04:12 Dose: 25 mg Documented by: [id number] Admin: 11/14/20 20:32 Dose: 25 mg Documented by: [id number] Trolamine Salicylate (Trolamine Salicylate 10% Crm 255 Appln/85 Gm Tube) 1 appln EXT TID JAKI Stop: 12/10/20 21:06 Last Admin: 11/15/20 13:09 Dose: 1 appln Documented by: [id number] Admin: 11/15/20 09:45 Dose: 1 appln Documented by: [id number] Admin: 11/14/20 20:34 Dose: 1 appln Documented by: [id number] Admin: 11/14/20 15:12 Dose: 1 appln Documented by: [id number] Admin: 11/14/20 09:00 Dose: 1 appln Documented by: [id number] Admin: 11/13/20 20:40 Dose: 1 appln Documented by: [id number] Admin: 11/13/20 14:00 Dose: 1 appln Documented by: [id number] Admin: 11/13/20 08:40 Dose: 1 appln Documented by: [id number] Admin: 11/12/20 21:01 Dose: 1 appln Documented by: [id number] Admin: 11/12/20 13:55 Dose: 1 appln Documented by: [id number] Admin: 11/12/20 07:17 Dose: 1 appln Documented by: [id number] Admin: 11/11/20 21:14 Dose: 1 appln Documented by: [id number] Admin: 11/11/20 13:44 Dose: 1 appln Documented by: [id number] Admin: 11/11/20 08:40 Dose: 1 appln Documented by: [id number] Admin: 11/10/20 23:01 Dose: 1 appln Documented by: [id number] Warfarin Sodium (Warfarin Sod 2 Mg Tab) 2 mg PO MOWE@1600 JAKI Stop: 12/11/20 15:59 Last Admin: 11/13/20 16:59 Dose: 2 mg Documented by: [id number] Admin: 11/11/20 17:04 Dose: 2 mg Documented by: [id number] Warfarin Sodium (Warfarin Sod 1 Mg Tab) 1 mg PO SUTUTHFRSA@1600 JAKI Stop: 12/12/20 15:59 Last Admin: 11/14/20 17:51 Dose: 1 mg Documented by: [id number] Admin: 11/12/20 17:09 Dose: 1 mg Documented by: [id number] Discontinued Medications Calcium Gluconate () 1,000 mg in 60 mls @ 240 mls/hr IV NOW STA Stop: 11/10/20 17:28 Last Infusion: 11/10/20 18:16 Dose: 0 mls/hr Documented by: [id number] Admin: 11/10/20 17:50 Dose: 240 mls/hr Documented by: [id number] Sodium Chloride (Nss 1000ml) 1,000 mls @ 80 mls/hr IV .[id number] JAKI Stop: 12/12/20 11:14 Last Infusion: 11/13/20 20:46 Dose: 0 mls/hr Documented by: [id number] Admin: 11/13/20 14:30 Dose: 80 mls/hr Documented by: [id number] Infusion: 11/13/20 14:12 Dose: 0 mls/hr Documented by: [id number] Admin: 11/13/20 01:42 Dose: 80 mls/hr Documented by: [id number] Infusion: 11/13/20 01:42 Dose: 80 mls/hr Documented by: [id number] Admin: 11/12/20 13:41 Dose: 80 mls/hr Documented by: [id number] Sodium Chloride (Nss 1000ml) 1,000 mls @ 80 mls/hr IV .[id number] JAKI Stop: 11/14/20 17:29 Last Infusion: 11/14/20 07:15 Dose: 0 mls/hr Documented by: [id number] Admin: 11/14/20 05:40 Dose: 80 mls/hr Documented by: [id number] Aztreonam 2,000 mg/ Dextrose 110 mls @ 100 mls/hr IV Q8H JAKI; Protocol Stop: 11/24/20 04:59 Last Infusion: 11/15/20 05:14 Dose: 0 mls/hr Documented by: [id number] Admin: 11/15/20 04:15 Dose: 100 mls/hr Documented by: [id number] Infusion: 11/14/20 22:15 Dose: 0 mls/hr Documented by: [id number] Admin: 11/14/20 20:33 Dose: 100 mls/hr Documented by: [id number] Infusion: 11/14/20 14:28 Dose: 0 mls/hr Documented by: [id number] Admin: 11/14/20 13:22 Dose: 100 mls/hr Documented by: [id number] Infusion: 11/14/20 06:46 Dose: 0 mls/hr Documented by: [id number] Admin: 11/14/20 05:40 Dose: 100 mls/hr Documented by: [id number] Dextrose/Sodium Chloride (D5w And Nss) 1,000 mls @ 80 mls/hr IV .[id number] JAKI Stop: 12/14/20 07:14 Last Infusion: 11/14/20 19:39 Dose: 0 mls/hr Documented by: [id number] Admin: 11/14/20 07:15 Dose: 80 mls/hr Documented by: [id number] Ioversol (Optiray 320 125ml) 120 ml IV ONCE ONE Stop: 11/14/20 03:25 Last Admin: 11/14/20 03:25 Dose: 120 ml Documented by: [id number] Loratadine (Loratadine 10 Mg Tab) 10 mg PO NOW ONE Stop: 11/12/20 05:46 Last Admin: 11/12/20 06:01 Dose: 10 mg Documented by: [id number] Tramadol HCl (Tramadol Hcl 50 Mg Tablet) 50 mg PO Q8H JAKI Stop: 12/10/20 21:59 Last Admin: 11/13/20 06:21 Dose: 50 mg Documented by: [id number] Admin: 11/12/20 21:01 Dose: 50 mg Documented by: [id number] Admin: 11/12/20 13:41 Dose: 50 mg Documented by: [id number] Admin: 11/12/20 05:20 Dose: 50 mg Documented by: [id number] Admin: 11/11/20 21:15 Dose: 50 mg Documented by: [id number] Admin: 11/11/20 13:44 Dose: 50 mg Documented by: [id number] Admin: 11/11/20 05:51 Dose: 50 mg Documented by: [id number] Admin: 11/10/20 23:05 Dose: 50 mg Documented by: [id number] Description This is a 21 electrode EEG with a single channel dedicated to limited EKG. The electrodes were placed in accordance with the International 10-20 system.This EEG was done as a bedside recording without any video analysis and was performed during what appears to be in transition between drowsiness and wakefulness. Photic stimulation was performed. The patient is described as mildly confused by the field radio technician Video study shows some nodding off of the patient periodically with some plantar movements of the extremities but no seizure-like activity is noted During these intervals the background rhythm falls into a mid theta range about 8 Hz maximum frequency and of up to 40 to 50 V amplitude and blends in with the central symmetrical slightly slower theta activity where some delta activity is also superimposed this random waveforms. Beta activity is present but hard to distinguish Periodically throughout the tracing the patient becomes more awake in appearance going to video and in these intervals the tracing appears to contain a more normal background pattern in the lower alpha range of about 9 Hz maximum frequency and of up to 20 to 30 V maximum 2 which was also bilateral symmetrical proximal and posterior head regions. During these intervals very subtle theta activity also shows a slightly high ranges at about 6 to 7 Hz and amplitude tends to drop and delta activity disappeared beta activity becomes a little more evident and still is low voltage in maximum bifrontally Photic relation provokes no real change in the overall pattern and does not induce a photo myogenic or photoparoxysmal component No time during the waking or drowsy tracing is or evidence for potential epileptogenic activity Interpretation This EEG reveals evidence for most mild generalized slowing background rhythms which may be quite normal for patient age 89 and does not otherwise show any convincing evidence for a focal or generalized encephalopathy and certainly reveals no evidence for potentially epileptogenic patterns Clinical Correlation The EEG is at most mildly slow and is more likely normal for age 89 reveals no evidence for a focal encephalopathy, marginal evidence for a generalized encephalopathy and no evidence for potentially epileptogenic activity Anton Looney MD
[2020-11-15 15:14] VITALS: BP 154/74; PULSE 94; TEMP 98.1; O2SAT 94
[2020-11-15] MEDS: WARFARIN SOD 1 MG TAB PO SCH (15:19)
[2020-11-15] MEDS: DIGOXIN 0.125 MG TAB PO SCH (15:19)
[2020-11-15] MEDS ORDERED: STROKE PATIENT DISCHARGE STA (15:36)
--- NOTE | 2020-11-15 15:41 | Discharge Summary ---
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 In September, she was admitted for treatment of Covid without pneumonia or hypoxia but with significant weakness. She subsequently went home and had a syncopal event resulting in a chest wall injury after falling into a sink. She was admitted from 11/03 and discharged on 11/06. She was seen by cardiology during that time. She was continued on anticoagulation with warfarin. Although she was not fully chest pain-free, she was stable for discharge and sent home. Per daughter who is her can sorter and lives with her, mom was utilizing as needed Tylenol 325 to 650 mg and tramadol 25 mg 2-3 times a day. The patient reported the pain to be intolerable however, especially since yesterday. This resulted in a call to EMS to bring her here today for intractable pain. The patient is significantly tender wincing in pain with any movement or repositioning. Her chest pain is described as sharp, intermittent, and she reports not being able to sit up straight secondary to the severe pain. There is no radiation of the pain but it extends from midsternal area to left anterior chest wall. A CTA of the chest was performed during the last admission revealing no evidence of rib fracture or sternal fracture. She is exquisitely tender to palpation of the chest wall and there is no overt rash or bruising present. There is no swelling outside of a left anterior wall pacemaker under the skin. She has pain even with upper arm movement. She has a history of atrial fibrillation and is on warfarin. The patient and her daughter report compliance with her medications with no recent changes or missed doses. There was concern by EMS that the patient was overpacing with the rhythm was described as wide-complex and paced in the low 100s. On arrival to the ER, EKG reveals an atrial paced rhythm with a normal rate. Pacemaker currently being interrogated by device manufacture. Of note, daughter reports the patient was doing more activity yesterday including walking more and even helping the daughter fold clothes. The patient is fatigued and reports not sleeping overnight. She reports having a severe headache. Review of systems is otherwise negative. Principal Diagnosis Anterior chest wall pain chronic atrial fibrillation Rash anterior chest wall chronic urinary retention Possible TIA Discharge Data Allergies Allergy/AdvReac Type Severity Reaction Status Date / Time ciprofloxacin Allergy Intermediate RASH Verified 11/10/20 16:12 estrogens, conjugated Allergy Intermediate SEVERE Verified 11/10/20 16:12 RASH, PAINFUL FROM VAGINAL CREAM Sulfa (Sulfonamide Allergy Intermediate HIVES, RASH Verified 11/10/20 16:12 Antibiotics) adhesive Allergy Unknown ADHESIVE Verified 11/10/20 16:12 TAPE-SKIN IRRITATION tetanus toxoid, adsorbed Allergy Unknown UNKNOWN Verified 11/10/20 16:12 Consultations 11/10/20 17:13 ED Decision to Admit Stat 11/13/20 20:08 Consult Urology Routine 11/14/20 08:00 Consult Neurology Routine Ordered Studies 11/14/20 02:31 CT head/brain wo con Urgent 11/14/20 03:11 CT angio head w con Stat 11/14/20 03:12 CT angio neck with con Stat Discharge Plan Discharge Items Patient Disposition: Home - Home Health Services Reason For Visit: CHEST PAIN Discharge Diagnosis: Anterior chest wall pain chronic atrial fibrillation Rash anterior chest wall chronic urinary retention Possible TIA Condition on Discharge: Good Activity: Resume your previous activity Non-emergency contact: Primary Care Provider Call non-emergency contact if: you have any medication questions Follow-up/Referrals: Roly Vogel MD [Primary Care Provider] - (Date & Time 11/21/2020 11:20 AM Provider Roly Vogel MD Department Family Medicine [facility] ) Diet: Regular Diet Texture: Easy to Chew Addtl Attending Provider Instructions: Please take scheduled Tylenol 1000mg every 8 hours along with Tramadol 25mg every 8 hours to help with your chest wall pain in the short term. This type of injury takes weeks to improve but will get better with time. You have a rash on your anterior chest wall likely related to the EKG leads used this hospital stay. Please continue to use the steroid cream on the list below for up to but not exceeding, two weeks time. Your episode of confusion in the hospital may have been a mini-stroke, or TIA. Therefore, baby aspirin was added to your medication regimen. Please continue to get up and move around, taking deep breaths frequently. Please maintain the Pizano catheter in your blader until you can follow up with Urology, preferred within 1-2 weeks. Please follow up with your primary care physician within one week to ensure you are still doing well since returning home. It was a pleasure taking care of you! Please call if you have any questions or problems. You can reach a [facility] hospitalist on duty at [facility] 24 hours a day by calling [phone]. Take care of yourself. Karishma Rodriguez, DO [facility] Hospitalist Pending Studies at Discharge: No Stand-Alone Forms: My [facility] Medications and DC Order Prescriptions: New acetaminophen [Tylenol Extra Strength] 500 mg Tablet 1,000 mg PO Q8H Qty: 60 RF: 0 aspirin 81 mg tablet,delayed release (DR/EC) 81 mg PO DAILY Qty: 90 RF: 0 Continued amiodarone 200 mg Tablet 200 mg PO DAILY RF: 0 hydroxyzine HCl 25 mg Tablet 25 mg PO Q6 PRN (Reason: Itching) RF: 0 cholecalciferol (vitamin D3) [Vitamin D3] 50 mcg (2,000 unit) Tablet 50 mcg PO DAILY RF: 0 escitalopram oxalate 5 mg tablet 5 mg PO QDD RF: 0 metoprolol succinate 25 mg tablet extended release 24 hr 25 mg PO DAILY RF: 0 loperamide 2 mg Tablet 2 mg PO DIRECTED MDD 16 MG/24 HOURS PRN (Reason: Diarrhea) RF: 0 levothyroxine 50 mcg Tablet 50 mcg PO DAILYBB RF: 0 nitroglycerin 0.4 mg Tablet, Sublingual 0.4 mg Sublingual DIRECTED PRN (Reason: Chest Pain) RF: 0 digoxin 125 mcg Tablet 0.125 mg PO MOWEFR@0900 RF: 0 ondansetron 4 mg Tablet,Disintegrating 4 mg translingual Q6 PRN (Reason: Nausea) RF: 0 diphenhydramine-zinc acetate 2-0.1 % cream 1 applic Topical QID PRN (Reason: Itching) RF: 0 betamethasone dipropionate 0.05 % ointment 1 applic Topical BID PRN (Reason: Itching) RF: 0 gabapentin 100 mg capsule 100 - 200 mg PO HS RF: 0 levocetirizine 5 mg tablet 5 mg PO DAILY RF: 0 ammonium lactate 12 % cream 1 applic TOPICAL BID PRN (Reason: Dry Skin) RF: 0 ropinirole 0.5 mg tablet 0.5 mg PO QDD RF: 0 warfarin 1 mg tablet 1 mg PO SUTUTHFRSA@1600 RF: 0 diclofenac sodium 1 % gel 2 g TOPICAL TID RF: 0 rosuvastatin 10 mg tablet 10 mg PO DAILY RF: 0 warfarin 2 mg Tablet 2 mg PO MOWE@1600 RF: 0 Changed tramadol 50 mg Tablet 25 mg PO Q8H Qty: 20 RF: 0 Discontinued acetaminophen [Tylenol] 325 mg Tablet 650 mg PO Q6H PRN (Reason: Pain) RF: 0 Discharge Orders: Discharge Order (Routine); Ordered 11/15/20 Ordered By: Karishma Rodriguez Admission Data Admit Date/Time: 11/12/20 14:56 Attending Provider: Karishma Rodriguez Admit Provider: Karishma Rodriguez Primary Care Provider: Roly Vogel Other Providers: Roc Gutierres [facility] ; Liss Gutierrez ; Liza Castillo ; Karishma Rodriguez ; Salo Scott ; Gracia Michaud ; Anton Casanova ; Gracia Garcia ; Jamie Salgado
--- NOTE | 2020-11-15 16:07 | Communication Note ---
Date of Service: November 15, 2020 I saw Mrs. Keith today at the request of Dr. Rodriguez find her to be pleasant mildly confused but did not notice any staring spells and her EEG shows perhaps mild generalized slowing which may well be normal at her age of 89 and nothing to suggest potential seizure activity and at this point we are simply going to follow Dr. Bales suggestions of discharging her on low-dose baby aspirin and have her follow-up with her primary care physician Anton Casanova MD
[2020-11-15] MEDS: rOPINIRole HCL 0.25 MG TABLET PO SCH (16:48)
[2020-11-15] MEDS: ESCITALOPRAM OXALATE 10 MG TAB PO SCH (16:48)
[2020-11-15] MEDS ORDERED: DOCUSATE SODIUM/SENNA 50/8.6MG TAB PO SCH (21:00)
[2020-11-15] MEDS ORDERED: POLYETHYLENE (MIRALAX) 17 GM PACK PO SCH (21:00)
== END 2020-11-15 17:57 | disposition home health service (06) | DRG 313 ==
LOC: 2S 15:50 → ED 15:50 → SUATTDRO 18:31 → 2S 20:18 → 2W 11-11 19:48 → SUATTDRO 11-12 14:56 → 2W 11-12 21:04